=== PATIENT | female | born 1940 | race Caucasian/White ===

== ENCOUNTER 2017-03-17 10:25 | Inpatient (IN) | payer OTHER ==
[~2017-03-17] VITALS: Ht 157.5 cm; Wt 53.8 kg
[~2017-03-17 10:25] MED LIST: ALLO100T PO; ASPI81TA21 PO; CMDUNK PO; DIGO0.1267 PO; FENO48TA9 PO; FISHOIL PO; FURO20TA PO; HYDR-4715 PO; LEVO25TA PO; LRT5 PO; METO-551 PO; OXGN; SPIR25TA PO; WARF5TAB90 PO
[2017-03-17] MEDS ORDERED: ONDANSETRON INJ 2 MG/ML 2 ML VIAL IV PRN (11:30)
[2017-03-17] MEDS ORDERED: ACETAMINOPHEN 325 MG TAB PO PRN (11:30)
[2017-03-17 12:23] LABS: BASO % 0.7 %; BASO ABS # 0.03 K/uL (0-0.2); EOS % 2.5 %; HEMATOCRIT 33.9 % (37-47); LYMPH % 15.9 %; LYMPH ABS # 0.69 K/uL (1.2-3.4); MEAN CELL VOLUME 112.3 fL (80-100); MEAN CORPUSCULAR HEMOGLOBIN 37.1 pg (25-34); MEAN PLATELET VOLUME 9.9 fL (7.4-10.4); MONO % 14.3 %; NEUT % 66.6 %; PLATELET COUNT 222 K/uL (130-400); RED BLOOD COUNT 3.02 M/uL (4.2-5.4); WHITE BLOOD COUNT 4.33 K/uL (4.8-10.8)
[2017-03-17 12:29] LABS: INR 2.6 (0.9-1.1); PROTHROMBIN TIME (PATIENT) 28.9 SECONDS (9.0-12.0)
[2017-03-17] MEDS ORDERED: SPIR25TA PO (12:36)
[2017-03-17] MEDS ORDERED: RANI300T2 PO (12:36)
[2017-03-17] MEDS ORDERED: CYAN10004 PO (12:36)
[2017-03-17] MEDS ORDERED: METO-551 PO (12:36)
[2017-03-17] MEDS ORDERED: MONT1TAB5 PO (12:36)
[2017-03-17] MEDS ORDERED: HYDR-4717 PO (12:36)
[2017-03-17] MEDS ORDERED: ISOS30TA35 PO (12:36)
[2017-03-17] MEDS ORDERED: CALC0.25 PO (12:36)
[2017-03-17] MEDS ORDERED: GABA-112 PO (12:36)
[2017-03-17 12:41] VITALS: BP 155/66; PULSE 78; TEMP 36.5; O2SAT 95; Ht 157.5 cm; Wt 53.8 kg
[2017-03-17 12:47] LABS: COMPLETE YES; OVALOCYTES 1+
[2017-03-17 12:52] LABS: ALB/GLOB RATIO 0.9 (0.9-2); ALKALINE PHOSPHATASE 57 U/L (45-117); ALT/SGPT 13 U/L (12-78); AST/SGOT 24 U/L (15-37); BLOOD UREA NITROGEN 45 mg/dl (7-18); BUN/CREATININE RATIO 19.4 (10-20); CALCIUM 9.2 mg/dl (8.5-10.1); CARBON DIOXIDE 27 mmol/L (21-32); CHLORIDE 103 mmol/L (98-107); GLUCOSE 83 mg/dl (70-99); POTASSIUM 3.8 mmol/L (3.5-5.1); SODIUM 140 mmol/L (136-145)
[2017-03-17 15:02] VITALS: BP 139/68; PULSE 79; TEMP 37.2; O2SAT 93
--- NOTE | 2017-03-17 15:06 | History and Physical ---
History & Physical Date & Time of Service: Mar 17, 2017 ~ 12:15 Chief Complaint: Shortness of Breath Primary Care Physician: Lana Aguillon M.D. History of Present Illness 76 year old female who was referred by the cardiology office for direct admission after being found to have a vegetation on her mitral valve. Patient has history of mechanical aortic and mitral valve replacements in 1996. Patient notes increasing shortness of breath for the past 6 months. She was recently evaluated by cardiology who increased her diuretics however she saw minimal improvement in her shortness of breath. She was scheduled for a stress today and resting echocardiogram showed a vegetation on the mitral valve. Patient reports a persistent cough productive for white sputum. She denies fever and chills. No chest pain or palpitations. She denies lightheadedness, dizziness, diaphoresis, or syncope. No abdominal pain, nausea, vomiting, or diarrhea. She denies urinary symptoms. At the time of my exam, patient is resting in bed in no acute distress. Past Medical/Surgical History Medical Problems: (1) Atrial fibrillation Status: Chronic (2) CKD (chronic kidney disease), stage IV Status: Chronic (3) Dyslipidemia Status: Chronic (4) Gout Status: Chronic (5) HTN (hypertension) Status: Chronic (6) Hypothyroidism Status: Chronic (7) Osteoporosis Status: Chronic (8) Rheumatic heart disease Status: Chronic (9) Spinal stenosis Status: Chronic Surgical Problems: (1) H/O aortic valve replacement Permanent Comment: mechanical, 1996 Status: Chronic (2) H/O mitral valve replacement Permanent Comment: mechanical, 1996 Status: Chronic (3) History of hysterectomy Status: Chronic (4) Hx of thyroidectomy Status: Chronic (5) Status post total hip replacement, left Status: Chronic (6) Status post total hip replacement, right Status: Chronic Family History Stroke MOTHER Social History Smoking Status: Current Every Day Smoker Alcohol Use: none Immunizations History of Influenza Vaccine: Yes Influenza Vaccine Date: Jun 25, 2016 History of Pneumococcal: Yes Pneumococcal Date: Apr 04, 2015 Allergies Coded Allergies: No Known Allergies (Unverified , 03/27/12) Home Medications Scheduled Allopurinol (Zyloprim), 100 MG PO DAILY Aspirin Enteric Coated (Ecotrin Or Generic), 81 MG PO DAILY Calcitriol (Rocaltrol Cap), 1 CAP PO BID Cyanocobalamin (Vitamin B-12 1000 Mcg), 1 TAB PO DAILY Furosemide (Lasix), 40 MG PO DAILY Gabapentin (Neurontin), 100 MG PO HS Hydralazine Hcl (Apresoline), 1 TAB PO TID Isosorbide Mononitrate Ext Rel (Imdur Ext Rel), 1 TAB PO QAM Levothyroxine Sodium (Synthroid), 25 MCG PO DAILY Metoprolol Tartrate (Lopressor), 50 MG PO DAILY Metoprolol Tartrate (Lopressor), 25 MG PO HS Montelukast Sodium (Montelukast Sodium), 1 TAB PO DAILY Ranitidine (Zantac), 300 MG PO HS Spironolactone (Aldactone), 12.5 MG PO DAILY Warfarin Sod (Coumadin Unknown Dose), 3.75 MG PO DAILY Review of Systems ROS per HPI, all other systems reviewed and negative Physical Exam Vital Signs Date Time Temp Pulse Resp B/P (MAP) Pulse Ox O2 Delivery O2 Flow Rate FiO2 03/17/17 12:41 36.5 78 18 155/66 95 Room Air General Appearance: no apparent distress Head: normocephalic Eyes: normal inspection ENT: hearing grossly normal Neck: supple, no JVD Respiratory/Chest: lungs clear, normal breath sounds, no respiratory distress Cardiovascular: no edema, + irregularly irregular (controlled rate) Abdomen/GI: normal bowel sounds, non tender, soft Extremities/Musculoskelatal: normal inspection, no calf tenderness Neurologic/Psych: no motor/sensory deficits, alert, normal mood/affect, oriented x 3 Skin: normal color, warm/dry Diagnostics Laboratory Results Results Past 24 Hours Test 03/17/17 11:54 Range/Units White Blood Count 4.33 4.8-10.8 K/uL Red Blood Count 3.02 4.2-5.4 M/uL Hemoglobin 11.2 12.0-16.0 g/dL Hematocrit 33.9 37-47 % Mean Corpuscular Volume 112.3 80-100 fL Mean Corpuscular Hemoglobin 37.1 25-34 pg Mean Corpuscular Hemoglobin Concent 33.0 32-36 g/dl Platelet Count 222 130-400 K/uL Mean Platelet Volume 9.9 7.4-10.4 fL Neutrophils (%) (Auto) 66.6 % Lymphocytes (%) (Auto) 15.9 % Monocytes (%) (Auto) 14.3 % Eosinophils (%) (Auto) 2.5 % Basophils (%) (Auto) 0.7 % Neutrophils # (Auto) 2.88 1.4-6.5 K/uL Lymphocytes # (Auto) 0.69 1.2-3.4 K/uL Monocytes # (Auto) 0.62 0.11-0.59 K/uL Eosinophils # (Auto) 0.11 0-0.5 K/uL Basophils # (Auto) 0.03 0-0.2 K/uL RDW Standard Deviation 62.5 36.4-46.3 fL RDW Coefficient of Variation 15.2 11.5-14.5 % Immature Granulocyte % (Auto) 0.0 % Immature Granulocyte # (Auto) 0.00 0.00-0.02 K/uL Macrocytosis PRESENT Ovalocytes 1+ Prothrombin Time 28.9 9.0-12.0 SECONDS Prothromb Time International Ratio 2.6 0.9-1.1 Sodium Level 140 136-145 mmol/L Potassium Level 3.8 3.5-5.1 mmol/L Chloride Level 103 98-107 mmol/L Carbon Dioxide Level 27 21-32 mmol/L Anion Gap 10.0 3-11 mmol/L Blood Urea Nitrogen 45 7-18 mg/dl Creatinine 2.30 0.60-1.20 mg/dl Estimated GFR () 23.2 Estimated GFR (Non- 20.0 BUN/Creatinine Ratio 19.4 10-20 Random Glucose 83 70-99 mg/dl Calcium Level 9.2 8.5-10.1 mg/dl Total Bilirubin 0.5 0.2-1 mg/dl Aspartate Amino Transf (AST/SGOT) 24 15-37 U/L Alanine Aminotransferase (ALT/SGPT) 13 12-78 U/L Alkaline Phosphatase 57 45-117 U/L Total Protein 7.6 6.4-8.2 gm/dl Albumin 3.7 3.4-5.0 gm/dl Globulin 3.9 2.5-4.0 gm/dl Albumin/Globulin Ratio 0.9 0.9-2 Microbiology Results 03/17/17 Blood Culture, Received Pending 03/17/17 Blood Culture, Received Pending Impression Assessment and Plan MITRAL VALVE VEGETATION - admit to tele - patient sent for direct admission after outpatient echo demonstrated a mitral valve vegetation - patient with history of mechanical mitral and aortic valves replaced in 1996 - suspect vegetation is thrombus rather than infectious endocarditics as patient has recently had subtherapeutic INRs; noted no infectious symptoms, afebrile, no leukocytosis - check blood cultures - INR 2.6 today - will hold Coumadin and allow INR to drift down for MERVIN tomorrow - patient does not examine to be volume overloaded, will continue home doses of diuretics - case discussed with Dr. Rajan ATRIAL FIBRILLATION - rate controlled on metoprolol, will continue - INR 2.6 HTN - BP controlled - continue metoprolol, isosorbide, and hydralazine CKD STAGE IV - baseline creat runs in the mid 2's - creat noted to be today 2.3 - continue to monitor, avoid nephrotoxic agents when able DVT PROPHYLAXIS - on Coumadin with therapeutic INR CODE STATUS - Patient is a full code as per my discussion with her. DISPO - In my clinical judgment this beneficiary meets acute admission criteria, established by [facility], that includes being hospitalized through two midnights. Addendum: This is a 76 year old female with a PMH of mitral and aortic valve replacements ; went to cardiology due to 6 month history of dyspnea with exertion. She was scheduled to have dobutamine stress echo; on her resting echo, a vegetation was noted on her mitral valve; she was told to come to ER for further input. Denies fevers/chills; denies shortness of breath at rest, chest pain, or palpitations. Physical resting comfortably, no distress irregularly irregular rhythm, loud S2 no wheezing Plan: monitor in tele MERVIN in AM (03/18) blood cultures pending Advanced Directives Existing Living Will: Yes Existing Power of Tobacco Sieve Operator: Yes VTE Prophylaxis VTE Risk Assessment Done? Y/N: Yes Risk Level: Moderate
--- NOTE | 2017-03-17 17:12 | CARDIOLOGY CONSULTATION ---
DATE OF CONSULTATION: 03/17/2017 REASON FOR CONSULTATION: Mechanical mitral valve mass. HISTORY OF PRESENT ILLNESS: Mrs. Goodson is a very pleasant 76-year-old woman, who normally follows with Jorge Myers of our cardiology practice. She presented to [facility] for an outpatient exercise stress echocardiogram today; however, resting images revealed a mass present on the mechanical mitral valve posterior leaflet and she was sent to [facility] for inpatient admission. The patient was seen a very recently on the by Jorge Myers with a complaint of shortness of breath with exertion. At that time, a chest x-ray showed mild CHF and small pleural effusion. She had her Lasix and spironolactone increased and with some improvement and subsequent stress testing was performed. Once the resting images were obtained, she was transferred to [facility]. Currently, the patient states that she feels okay at rest. She denies any recent sick contacts or any travel and denies any fevers, chills, myalgias, night sweats or skin lesions. She has not had any significant scrapes or lesions lately either. Of note, recent blood work did show that her INR was subtherapeutic at 1.6 on 03/11/2017. PAST SURGICAL HISTORY: 1. Aortic and mitral valve replacements in 1996 with a 27-mm Rehman-Medtronic mitral valve mechanical prosthesis and a 23-mm Carbomedics aortic valve replacement. 2. Total abdominal hysterectomy. 3. Left total hip replacement. 4. Thyroidectomy. 5. Right hip replacement. MEDICAL ILLNESSES: 1. Rheumatic heart disease, status post mechanical mitral and aortic valve replacements, on chronic Coumadin therapy. 2. COPD. 3. History of tobacco abuse. 4. Hypertension. 5. Hyperlipidemia. 6. Stage IV chronic kidney disease. FAMILY HISTORY: Noncontributory. SOCIAL HISTORY: The patient is a lifelong smoker and continues to smoke a half pack a day. Denies any alcohol or recreational drug use. REVIEW OF SYSTEMS: As per HPI, all other review of systems reviewed and negative at this time. ALLERGIES: AMLODIPINE. MEDICATIONS AN OUTPATIENT: 1. Metoprolol tartrate 50 mg q.a.m. and 25 mg q.p.m. 2. Imdur 30 mg daily. 3. Aspirin 81 mg daily. 4. Coumadin 3.75 mg daily as directed by the Coumadin clinic. 5. Hydralazine 50 mg 3 times a day. 6. Spironolactone 12.5 mg daily. 7. Lasix 40 mg daily. 8. Ranitidine daily. 9. Levoxyl daily. 10. Allopurinol daily. 11. Singulair daily. PHYSICAL EXAMINATION: VITAL SIGNS: Temperature 36.5, pulse 78, respiratory rate 12, and blood pressure 155/66. GENERAL: Awake, alert, and oriented x3 in no acute distress. HEENT: Normocephalic and atraumatic. Pupils equal, round, and reactive to light and accommodation. Extraocular muscles intact. Anicteric sclerae. Moist mucous membranes. No Elizabeth spots. NECK: No JVD and no bruit. CARDIOVASCULAR: Regular. Positive S4. Metallic S1 and metallic S2. No S3. A 2/6 mid to late systolic ejection murmur greatest at the right sternal border second intercostal space with radiation to bilateral carotids. No rubs. PULMONARY: Clear to auscultation bilaterally. No rales, rhonchi, or wheezing. ABDOMEN: Bowel sounds x4, soft. No rebound, guarding, or tenderness. No organomegaly. EXTREMITIES: No clubbing, cyanosis or edema. +2 pedal pulses bilaterally. SKIN: Warm and dry. No Janeway lesions or Elizabeth spots present. TEST RESULTS: A 2D echocardiogram performed at [facility] on 03/17/2017 was read as small mobile vegetation attached to the posterior mitral valve prosthetic annulus/sewing ring. There is a mechanical mitral valve process present. Systolic gradients are normal for this type prosthesis. Mechanical aortic valve present. Gradients are borderline elevated; however, lower compared to previous study. Normal LV systolic function, EF 60%-64%, mild tricuspid regurgitation, estimated pulmonary systolic pressure of 45 mmHg. LABORATORY STUDIES OF SIGNIFICANCE: Initial blood cultures are pending. White count of 4.3, hemoglobin 11.2, and platelet count of 222. INR 2.6. Sodium 140, potassium 3.8, BUN 45, and creatinine 2.3. IMPRESSION: 1. Mitral valve mobile lesion in the setting of recent subtherapeutic INR. 2. Mechanical aortic and mitral valve prostheses with a history of rheumatic heart disease. 3. Chronic kidney disease. 4. Tobacco abuse with chronic obstructive pulmonary disease. RECOMMENDATIONS: It was my pleasure to see Mrs. Goodson in consultation today. Given the clinical context that the patient has not had any sequelae for infective endocarditis specifically without any fevers, white count, and no sick contacts, I believe this most likely that we were dealing with a thrombus, especially given the recent history of a subtherapeutic INR; however, for completeness sake, blood cultures have been drawn and will be followed, but without any infected sequelae, I do not believe that empiric antibiotics are necessary at this time. In order to further visually evaluate the lesion, a transesophageal echocardiogram will be necessary. Unfortunately, her INR is now 2.6 and I would not feel comfortable doing a MERVIN with an INR greater than 2. So, given her history of mechanical valve prosthesis, we will allow her INR to slowly drift down on its own. Once it is less than 2.5, a heparin drip should be started to prevent further prosthetic thrombosis and her Coumadin will be restarted after the transesophageal echocardiogram. Otherwise, she will be maintained on all her other outpatient cardiac medications including her outpatient doses of Lasix, spironolactone, metoprolol, Imdur, aspirin, and hydralazine. Thank you very much for allowing me to participate in the care of your patient.
[2017-03-17 19:29] VITALS: BP 162/75; PULSE 77; TEMP 36.9; O2SAT 93
[2017-03-17] MEDS: METOPROLOL TARTRATE 25 MG TAB PO SCH (19:36)
[2017-03-17] MEDS: GABAPENTIN 100 MG CAP PO SCH (19:37)
[2017-03-17] MEDS: RANITIDINE HCL 150 MG TAB PO SCH (19:37)
[2017-03-17] MEDS: CALCITRIOL 0.25 MCG CAP PO SCH (19:37)
[2017-03-18] VITALS (14 sets, daily range): BP systolic 128–163; BP diastolic 53–111; PULSE 62–84; TEMP 36.7–36.9; O2SAT 87–97
[2017-03-18] MEDS: LEVOTHYROXINE 25 MCG TAB PO SCH (06:24)
--- NOTE | 2017-03-18 07:17 | Clinical Documentation Query ---
CLINICAL DOCUMENTATION QUERY 76 year old female who was referred by the cardiology office for direct admission after being found to have a likely thrombus on the mitral valve. Patient is on Lasix as outpatient and remains on same dosing as inpatient. In your clinical opinion is this patient being managed for: ( ) Chronic diastolic (Preserved EF) CHF ( ) Other explanation of clinical findings (Please Explain) ( ) Unable to determine (Please Define) ( ) Need to Discuss ( ) Not Agree Not mine. The medical record reflects the following clinical findings, treatment, and risk factors. Clinical Indicators: On home diuretic therapy. Normal LV systolic function, EF 60%-64%, mild tricuspid regurgitation, estimated pulmonary systolic pressure of 45 mmHg. Treatment: Lasix, I/O's, daily weights, Risk Factors: Age, HTN, CKD 4, Please clarify and document your clinical opinion in the progress notes and discharge summary. Terms such as "probable", "suspected", "likely", "questionable", "possible", or "still to be ruled out" are acceptable. IF IN AGREEMENT, YOU MUST DOCUMENT ABOVE DIAGNOSTIC STATEMENT IN DAILY PROGRESS NOTES AND DISCHARGE SUMMARY. This document is not part of the patient's record. Thank You, Sukumar Huitron, RN [phone]
[2017-03-18 07:26] LABS: HEMATOCRIT 33.5 % (37-47); MEAN CELL VOLUME 113.2 fL (80-100); MEAN CORPUSCULAR HEMOGLOBIN 36.8 pg (25-34); MEAN CORPUSCULAR HGB CONC 32.5 g/dl (32-36); MEAN PLATELET VOLUME 9.9 fL (7.4-10.4); PLATELET COUNT 184 K/uL (130-400); RED BLOOD COUNT 2.96 M/uL (4.2-5.4); WHITE BLOOD COUNT 4.51 K/uL (4.8-10.8)
[2017-03-18 07:34] LABS: PROTHROMBIN TIME (PATIENT) 21.5 SECONDS (9.0-12.0)
[2017-03-18] MEDS: ASPIRIN 81 MG ECTAB PO SCH (08:00)
[2017-03-18] MEDS: MONTELUKAST SOD 10 MG TAB PO SCH (08:00)
[2017-03-18] MEDS: ISOSORBIDE MONONITRATE 30 MG TABCR PO SCH (08:00)
[2017-03-18] MEDS: FUROSEMIDE 40 MG TAB PO SCH (08:01)
[2017-03-18] MEDS: CYANOCOBALAMIN 500 MCG TAB (VIT B-12) PO SCH (08:01)
[2017-03-18] MEDS: ALLOPURINOL 100 MG TAB PO SCH (08:01)
[2017-03-18] MEDS: SPIRONOLACTONE 25 MG TAB PO SCH (08:02)
[2017-03-18] MEDS: CALCITRIOL 0.25 MCG CAP PO SCH ×2 (08:02→21:00)
[2017-03-18] MEDS: METOPROLOL TARTRATE 50 MG TAB PO SCH (08:03)
[2017-03-18] MEDS: HEPARIN 25,000 UNIT/500ML D5W 500 ML IV PRN (08:39)
[2017-03-18] MEDS ORDERED: MIDAZOLAM HCL 1 MG/ML 2ML VIAL ONE ×2 (10:14)
[2017-03-18] MEDS ORDERED: FENTANYL CITRATE INJ 50 MCG/1 ML 2 ML VIAL ONE (10:14)
[2017-03-18] MEDS ORDERED: GLYCOPYRROLATE INJ 0.2 MG/ML VIAL ONE (10:14)
[2017-03-18] MEDS ORDERED: BENZOCAIN/TETRACA/BUTAM SPRAY 200 APPLN/20 GM SPRY ONE (10:14)
[2017-03-18] MEDS ORDERED: CANNULA ONE ×2 (10:14)
--- NOTE | 2017-03-18 10:43 | Procedure Note ---
Pre-Mod Sedation Assessment General Date of Moderate Sedation: Mar 18, 2017. Vital Signs: Vital Signs Past 12 Hours Date Time Temp Pulse Resp B/P (MAP) Pulse Ox O2 Delivery O2 Flow Rate FiO2 03/18/17 10:26 65 16 156/62 97 Room Air 03/18/17 07:49 36.8 72 20 149/75 (99) 92 Room Air 03/18/17 04:24 36.7 76 18 132/73 (92) 93 Room Air 03/18/17 04:00 Room Air 03/18/17 00:01 36.7 68 20 159/78 (105) 93 Room Air 03/18/17 00:01 Room Air Review Cardiovascular: regular rate, rhythm, no edema, no gallop, no JVD, normal peripheral pulses, + diastolic murmur, + systolic murmur Abdomen: normal bowel sounds, non tender, soft, no organomegaly, no pulsatile mass Lungs: chest non-tender, lungs clear, normal breath sounds, no respiratory distress, no accessory muscle use Airway Class: II Pre-Sedation Airway Assessment Oral Cavity: WNL Short Thick Neck: No Hx of Sleep Apnea: No Smoking Status: Light Tobacco Smoker Notes The planned sedation has been discussed with the patient and consent obtained. I have identified the patient, determined the appropriateness of sedation and have assessed the patient immediately prior to the procedure. All medicine(s) and interventions are by my order.
--- NOTE | 2017-03-18 11:12 | Procedure Note ---
Post-Mod Sedation Assessment General Date of Moderate Sedation Mar 18, 2017. Vital Signs: Vital Signs Past 12 Hours Date Time Temp Pulse Resp B/P (MAP) Pulse Ox O2 Delivery O2 Flow Rate FiO2 03/18/17 10:26 65 16 156/62 97 Room Air 03/18/17 07:49 36.8 72 20 149/75 (99) 92 Room Air 03/18/17 04:24 36.7 76 18 132/73 (92) 93 Room Air 03/18/17 04:00 Room Air 03/18/17 00:01 36.7 68 20 159/78 (105) 93 Room Air 03/18/17 00:01 Room Air Review - Discharge Criteria Vital Signs Stable: Yes Alert/Oriented/Conversant: Yes Returned to Baseline Mental St: Yes Nausea Absent/Minimal: Yes Pain/Discomfort/Absent/Minimal: Yes Normal/Baseline Respirations: Yes Active Bleeding?: No Pt Received D/C Instructions: No
--- NOTE | 2017-03-18 11:15 | [facility] Post Operative Brief Note ---
Immediate Operative Summary Operative Date Mar 18, 2017. Pre-Operative Diagnosis mechanical mitral valve lesion Post-Operative Diagnosis retained chordae tendinae s/p mechanical MVR Procedure(s) Performed MERVIN Surgeon Rajan High Lift Operator Surgeon(s) Michelle WILSON Estimated Blood Loss none Findings retained chordae tendinae, no valular lesions visualized. Specimens none Start time: 1049 Stop time: 1107 Anesthesia Versed 2 mg, Fentanyl 50mcg, moderate sedation Complication(s) None Disposition CPL
--- NOTE | 2017-03-18 11:34 | Cardiology Follow-Up ---
Subjective Subjective Date of Service: Mar 18, 2017. Pt evaluation today including: conversation w/ patient, physical exam, chart review, lab review, review of studies, review of inpatient medication list Additional Details: Pt seen and examined, states that she feels fine and she is anxious to go home. Denies fever, chills, myalgias, diaphoresis, cp, sob, palpitations, lightheadedness or dizziness. Tele reviewed: atrial fibrillation rate controlled. Review of Systems Respiratory: No see HPI, No cough, No sputum, No wheezing, No shortness of breath, No dyspnea on exertion, No dyspnea at rest, No hemoptysis, No problem reported Cardiac: No see HPI, No chest pain, No orthopnea, No PND, No edema, No claudication, No palpitations, No problem reported Objective Vital Signs Last Vital Signs Documentation Date Time Temp Pulse Resp B/P (MAP) Pulse Ox O2 Delivery O2 Flow Rate FiO2 03/18/17 10:26 65 16 156/62 97 Room Air 03/18/17 07:49 36.8 Physical Exam: General Appearance: WD/WN, no apparent distress Eyes: bilateral eyes normal inspection, bilateral eyes PERRL, bilateral eyes EOMI ENT: normal ENT inspection, hearing grossly normal, pharynx normal Neck: supple, no adenopathy, thyroid normal, no JVD, no carotid bruits, trachea midline Respiratory/Chest: chest non-tender, lungs clear, normal breath sounds, no respiratory distress, no accessory muscle use Cardiovascular: + systolic murmur, + irregularly irregular Abdomen: normal bowel sounds, non tender, soft, no organomegaly Extremities: normal inspection, no pedal edema, no calf tenderness Neurologic/Psychiatric: typing bookkeeper II-XII 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 possible MVR mass INR down to 2 overnight patient anxious to have procedure done as soon as possible and d/c to home MERVIN performed; no valular lesions identified, retained chordae tendinae present only blood cultures negative on second day, will cont to follow no sequelae of infection will restart heparin gtt upon arrival to floor coumadin to be restarted d/c to home once INR >2.5
--- NOTE | 2017-03-18 12:06 | TEE ---
*NOTICE TO RECEIVING DEMOCRAT AGENCY This information is strictly Confidential and protected under [place] law. [place] law prohibits you from making any further disclosure of this information unless further disclosure is expressly permitted by the written consent of the person to whom it pertains or is authorized by law. A general authorization for the release of medical or other information is not sufficient for this purpose. Hospital accepts no responsibility if the information is made available to any other person, INCLUDING THE PATIENT. Interpretation Summary * Name: ZANDER JACOB Study Date: 03/18/2017 10:31 AM BP: 139/47 mmHg * Patient Location: .2T\S\S239\S\1 HR: 68 * : 1940 (M/d/yyy) Gender: Female Height: 62 in * Age: 76 yrs Ethnicity: CA Weight: 118 lb * Ordering Physician: Marcelo Rajan * Referring Physician: Nick Quiñones * Performed By: Arely Khan RDCS * * Reason For Study: ? VEGETATION ON MITRAL VALVE * BSA: 1.5 m2 * Start Time 10:49AM * End Time 11:07AM * -- Conclusions -- * There is a central disc (Medtronic-Rehman type) mechanical prosthesis. * There is no thrombus on the prosthetic mitral valve. * Trace intravalvular regurgitation. Retained chordae tendinae present. * Left atrial thrombus is present. Procedure Details * MERVIN Probe #1 utilized for procedure. * The study was performed in Cardiopulmonary Department. * Time out was conducted by the physician, nurse, and cadd technician with positive identification of patient and procedure. * Informed consent for Transesophageal Echocardiogram was obtained prior to the procedure. * An intravenous line was placed. A topical anesthetic agent was used for oropharangeal anesthesia. A bite block was inserted. * The patient's vital signs, including blood pressure, heart rate, pulse oximetry and cardiac rhythm were monitored throughout the procedure . * Fentanyl 50 mcg was administered for procedural sedation. * Midazolam 2 mg administered for sedation. * The posterior oropharynx was anesthetized using a topical anesthetic spray. A bite guard was inserted. * A multifrequency, multiplane transesopheageal echocardiographic endoscope was inserted and manipulated in the standard fashion to achieve multiplane views. * The transesophageal probe was passed without difficulty. * The usual views were obtained; basal, mid-esophageal, transgastric and aortic views. * The patient tolerated the procedure well without evidence of orophangeal or esophageal trauma. * A 2D transesophageal echocardiogram with spectral and color flow Doppler was performed. Left Ventricle * The left ventricle is grossly normal size. * The left ventricular wall motion is normal. Atria * The left atrium is moderately dilated. * There is a thrombus seen in the left atrial appendage. * Right atrial size is normal. * The interatrial septum is intact with no evidence for an atrial septal defect. Mitral Valve * There is a central disc (Medtronic-Rehman type) mechanical prosthesis. * There is no thrombus on the prosthetic mitral valve. * Trace intravalvular regurgitation. Retained chordae tendinae present. Tricuspid Valve * The tricuspid valve is normal in structure and function. Aortic Valve * There is no significant aortic regurgitation. * There is a mechanical aortic valve. Pulmonic Valve * The pulmonary valve is not well seen, but the Doppler examination is normal without significant regurgitation or stenosis. Great Vessels * The aortic root and proximal ascending aorta are normal sized. * Mild atherosclerotic plaque(s) in the descending aorta. Pericardium * There is no pericardial effusion.
[2017-03-18 13:01] LABS: BUN/CREATININE RATIO 18.3 (10-20); CALCIUM 8.7 mg/dl (8.5-10.1); CREATININE 2.3 mg/dl (0.60-1.20); POTASSIUM 3.6 mmol/L (3.5-5.1)
[2017-03-18] MEDS ORDERED: NURSING VERBAL MED ORDER ONE (16:00)
[2017-03-18] MEDS: WARFARIN SOD 5 MG TAB PO SCH (17:41)
--- NOTE | 2017-03-18 18:17 | Progress Note ---
Internal Med Progress Note Date of Service: Mar 18, 2017. Provider Documentation: SUBJECTIVE: feels much better , no complain of ERIC , SOB at rest having sore throat form MERVIN exam earlier has been ambulating in room /OOB to bathroom -with out any SOB OBJECTIVE: Vital Signs-as noted below Exam: General-very pleasant elderly female, no sign of distress Eyes-sclera non icteric ENT-NAd Neck-no JVD Lungs-rales at base Heart-mechanical valve sound in 2nd rt ICS Abdomen-soft, non tender Extremities-no lower ext edema Neuro-AAO x3, no focal neurological deficit Lab data as noted below. ASSESSMENT & PLAN: LEFT ATRIAL APPENDAGE THROMBUS -was scheduled to have Dobutamine stress test at [facility] on Friday03/17/17 - patient sent for direct admission after resting echo demonstrated a mitral valve vegetation - patient with history of mechanical mitral and aortic valves replaced in 1996 -S/p MERVIN today -no vegetation noted on Medtronic-Rehman type mechanical prosthesis -left atrial appendage thrombus presented ( INR was recently subtherapeutic as out pt ) -pt will be continued with Coumadin and IV Heparin till INR ~2.5 SOB /ERIC /CHRONIC NON PRODUCTIVE COUGH : scheduled for Dobutamine stress test tomorrow 03/19/17 ATRIAL FIBRILLATION - rate controlled on metoprolol, will continue - cont IV heparin /Coumadin till INR ~2.5 -MERVIN shows left atrial appendage possible due to subtherapeutic INR in past -cont to monitor in tele HTN - BP controlled - continue metoprolol, isosorbide, and hydralazine CKD STAGE IV -stable - baseline creat runs in the mid 2's - continue to monitor, avoid nephrotoxic agents when able DVT PROPHYLAXIS - on Coumadin /IV heparin CODE STATUS - Patient is a full code DVT PROPHYLAXIS IV heparin /Coumadin DISPOSITION Possible dc home in AM if cardiac stress test negative Medicine follow up with Dr Aguillon Cardiology follow up with Jorge Myers PA-C Vital Signs: Date Time Temp Pulse Resp B/P (MAP) Pulse Ox O2 Delivery O2 Flow Rate FiO2 03/18/17 16:46 36.9 77 20 159/76 (103) 94 Room Air 03/18/17 12:07 36.7 73 22 159/79 (105) 95 Room Air 73 03/18/17 11:47 70 16 135/57 (83) 94 Room Air 03/18/17 11:36 75 20 131/56 (81) 95 Room Air 03/18/17 11:27 71 25 111/39 (63) 94 Nasal Cannula 6 03/18/17 11:17 72 21 133/54 (80) 95 Nasal Cannula 6 03/18/17 11:08 65 22 113/66 (82) 96 Nasal Cannula 6 03/18/17 11:07 Nasal Cannula 6 03/18/17 11:05 67 14 146/53 95 Nasal Cannula 6 03/18/17 11:00 75 14 132/62 87 Nasal Cannula 6 03/18/17 10:55 73 12 141/53 92 Nasal Cannula 4 03/18/17 10:53 Nasal Cannula 4 03/18/17 10:52 74 16 139/74 92 Nasal Cannula 4 03/18/17 10:49 84 19 163/111 96 Nasal Cannula 4 03/18/17 10:26 65 16 156/62 97 Room Air 03/18/17 07:49 36.8 72 20 149/75 (99) 92 Room Air 03/18/17 04:24 36.7 76 18 132/73 (92) 93 Room Air 03/18/17 04:00 Room Air 03/18/17 00:01 36.7 68 20 159/78 (105) 93 Room Air 03/18/17 00:01 Room Air 03/17/17 20:00 Room Air 03/17/17 19:29 36.9 77 20 162/75 (104) 93 Room Air Lab Results: Results Past 24 Hours Test 03/18/17 07:00 Range/Units White Blood Count 4.51 4.8-10.8 K/uL Red Blood Count 2.96 4.2-5.4 M/uL Hemoglobin 10.9 12.0-16.0 g/dL Hematocrit 33.5 37-47 % Mean Corpuscular Volume 113.2 80-100 fL Mean Corpuscular Hemoglobin 36.8 25-34 pg Mean Corpuscular Hemoglobin Concent 32.5 32-36 g/dl RDW Standard Deviation 62.6 36.4-46.3 fL RDW Coefficient of Variation 15.0 11.5-14.5 % Platelet Count 184 130-400 K/uL Mean Platelet Volume 9.9 7.4-10.4 fL Prothrombin Time 21.5 9.0-12.0 SECONDS Prothromb Time International Ratio 2.0 0.9-1.1 Sodium Level 141 136-145 mmol/L Potassium Level 3.6 3.5-5.1 mmol/L Chloride Level 106 98-107 mmol/L Carbon Dioxide Level 26 21-32 mmol/L Anion Gap 9.0 3-11 mmol/L Blood Urea Nitrogen 42 7-18 mg/dl Creatinine 2.30 0.60-1.20 mg/dl Est Creatinine Clear Calc Drug Dose 16.5 ml/min Estimated GFR () 23.2 Estimated GFR (Non- 20.0 BUN/Creatinine Ratio 18.3 10-20 Random Glucose 80 70-99 mg/dl Calcium Level 8.7 8.5-10.1 mg/dl
[2017-03-18] MEDS: METOPROLOL TARTRATE 25 MG TAB PO SCH (20:59)
[2017-03-18] MEDS: RANITIDINE HCL 150 MG TAB PO SCH (21:00)
[2017-03-18] MEDS: GABAPENTIN 100 MG CAP PO SCH (21:01)
[2017-03-18 21:50] LABS: PARTIAL THROMBOPLASTIN RATIO 2.1
[2017-03-19] VITALS (7 sets, daily range): BP systolic 103–148; BP diastolic 56–73; PULSE 64–81; TEMP 36.7–37; O2SAT 91–96
--- NOTE | 2017-03-19 05:26 | Clinical Documentation Query ---
CLINICAL DOCUMENTATION QUERY 76 year old female who was referred by the cardiology office for direct admission after being found to have likely thrombus on mitral valve. Patient is on Lasix as outpatient and remain on same dosing as inpatient. In your clinical opinion is this patient being managed for: ( x ) Chronic diastolic (Preserved EF) CHF ( ) Other explanation of clinical findings (Please Explain) ( ) Unable to determine (Please Define) ( ) Need to Discuss ( ) Not Agree The medical record reflects the following clinical findings, treatment, and risk factors. Clinical Indicators: On home diuretic therapy. Normal LV systolic function, EF 60%-64%, mild tricuspid regurgitation, estimated pulmonary systolic pressure of 45 mmHg. Treatment: Lasix, I/O's, daily weights, Risk Factors: Age, HTN, CKD 4, Please clarify and document your clinical opinion in the progress notes and discharge summary. Terms such as "probable", "suspected", "likely", "questionable", "possible", or "still to be ruled out" are acceptable. IF IN AGREEMENT, YOU MUST DOCUMENT ABOVE DIAGNOSTIC STATEMENT IN DAILY PROGRESS NOTES AND DISCHARGE SUMMARY. This document is not part of the patient's record. Thank You, Sukumar uHitron, RN [phone]
[2017-03-19] MEDS: LEVOTHYROXINE 25 MCG TAB PO SCH (06:07)
[2017-03-19 07:54] LABS: INR 1.6 (0.9-1.1); PROTHROMBIN TIME (PATIENT) 16.9 SECONDS (9.0-12.0)
[2017-03-19 07:56] LABS: PARTIAL THROMBOPLASTIN RATIO 2.5
[2017-03-19] MEDS: ASPIRIN 81 MG ECTAB PO SCH (08:42)
[2017-03-19] MEDS: ALLOPURINOL 100 MG TAB PO SCH (08:42)
[2017-03-19] MEDS: CYANOCOBALAMIN 500 MCG TAB (VIT B-12) PO SCH (08:42)
[2017-03-19] MEDS: CALCITRIOL 0.25 MCG CAP PO SCH (08:43)
[2017-03-19] MEDS: MONTELUKAST SOD 10 MG TAB PO SCH (08:43)
[2017-03-19] MEDS ORDERED: DOBUTamine HCL 12.5 MG/ML 20 ML VIAL ONE (08:46)
[2017-03-19] MEDS ORDERED: ATROPINE SULFATE 0.1 MG/ML 5ML SYR ONE (08:46)
[2017-03-19] MEDS ORDERED: METOPROLOL TARTRATE 1 MG/ML VIAL ONE (08:46)
[2017-03-19] MEDS ORDERED: WARFARIN SOD 5 MG TAB PO ONE (08:51)
[2017-03-19] MEDS: SPIRONOLACTONE 25 MG TAB PO SCH (10:57)
[2017-03-19] MEDS: METOPROLOL TARTRATE 50 MG TAB PO SCH (10:57)
[2017-03-19] MEDS: ISOSORBIDE MONONITRATE 30 MG TABCR PO SCH (10:57)
[2017-03-19] MEDS: FUROSEMIDE 40 MG TAB PO SCH (10:58)
--- NOTE | 2017-03-19 14:40 | DOBUTAMINE ECHO ---
*NOTICE TO RECEIVING DEMOCRAT AGENCY This information is strictly Confidential and protected under [place] law. [place] law prohibits you from making any further disclosure of this information unless further disclosure is expressly permitted by the written consent of the person to whom it pertains or is authorized by law. A general authorization for the release of medical or other information is not sufficient for this purpose. Hospital accepts no responsibility if the information is made available to any other person, INCLUDING THE PATIENT. Interpretation Summary * Name: ZANDER JACOB Study Date: 03/19/2017 08:36 AM BP: 145/66 mmHg * Patient Location: [id number]\S\S239\S\1 HR: 82 * : 1940 (M/d/y) Gender: Female Height: 62 in * Age: 76 yrs Ethnicity: [place] Weight: 118 lb * Ordering Physician: Marcelo Rajan * Referring Physician: Nick Quiñones * Performed By: Conchis Berg RDCS * * Reason For Study: Dyspnea * BSA: 1.5 m2 * -- Conclusions -- * Nonischemic dobutamine stress echocardiogram. * No arrhythmias. * Normal HR and BP response to infusion. Procedure Details * DOBUTAMINE ECHO, CPT#02461 * ECHO DOPPLER, CPT #93013 * ECHO COLOR FLOW, CPT #03964 Left Ventricle * Resting wall motion: Normal. Stress wall motion: Appropriate increase in Left ventricular systolic function and decrease in cavity size. No stress induced segmental wall motion abnormalities. Stress Parameters * The stress portion of this study was personally supervised by the undersigned interpreting physician. * Rest heart rate was '82' BPM. * Rest blood pressure was '145/66' * Maximum heart rate achieved was 187 bpm. * Maximum heart rate was 129 % of maximum age-predicted heart rate. * Maximum blood pressure was '166/57' * Maximum Dobutamine infusion rate was '40' mcg/kg/min. * Dobutamine infusion was terminated due to achieving target heart rate * A total of 10 mg of IV Metoprolol was administered to reverse Dobutamine-induced tachycardia. * The patient did not exhibit any symptoms during drug infusion.
[2017-03-19] MEDS: WARFARIN SOD 5 MG TAB PO SCH (15:54)
--- NOTE | 2017-03-19 15:54 | Cardiology Follow-Up ---
Subjective Subjective Date of Service: Mar 19, 2017. Pt evaluation today including: conversation w/ patient, conversation w/ family , physical exam, chart review, lab review, review of studies, review of inpatient medication list Additional Details: Pt seen and examined, no complaints overnight. States that breathing is not back to baseline but otherwise feeling well. Denies cp, palpitations, lightheadedness or dizziness. Tele reviewed: atrial fibrillation, rate controlled. Review of Systems Respiratory: No see HPI, No cough, No sputum, No wheezing, No shortness of breath, No dyspnea on exertion, No dyspnea at rest, No hemoptysis, No problem reported Cardiac: No see HPI, No chest pain, No orthopnea, No PND, No edema, No claudication, No palpitations, No problem reported Objective Vital Signs Last Vital Signs Documentation Date Time Temp Pulse Resp B/P (MAP) Pulse Ox O2 Delivery O2 Flow Rate FiO2 03/19/17 15:34 36.8 75 20 103/64 (77) 94 Room Air 03/18/17 11:27 6 Physical Exam: General Appearance: WD/WN, no apparent distress Eyes: bilateral eyes normal inspection, bilateral eyes PERRL, bilateral eyes EOMI ENT: normal ENT inspection, hearing grossly normal, pharynx normal Neck: supple, no adenopathy, thyroid normal, no JVD, no carotid bruits, trachea midline Respiratory/Chest: chest non-tender, lungs clear, normal breath sounds, no respiratory distress, no accessory muscle use Cardiovascular: + systolic murmur, + irregularly irregular Abdomen: normal bowel sounds, non tender, soft, no organomegaly Extremities: normal inspection, no pedal edema, no calf tenderness Neurologic/Psychiatric: 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 mechanical mvr and avr unfortunately INR now down to 1.6 today extra dose of coumadin heparin until INR of 2.5 reached 3. sob valvular prosthesis stable nonischemic stress test possible diastolic component but more like copd with ongoing cigarette use counseled on cessation may consider pulm eval ok to d/c tele from cardiac standpoint but must remain on heparin bridge
[2017-03-19] MEDS ORDERED: WARFARIN SOD 1 MG TAB PO ONE (16:30)
[2017-03-19] MEDS: HEPARIN 25,000 UNIT/500ML D5W 500 ML IV PRN (18:59)
--- NOTE | 2017-03-19 20:18 | Progress Note ---
Internal Med Progress Note Date of Service: Mar 19, 2017. Provider Documentation: SUBJECTIVE: no complain of chest pain or SOB Dobutamine stress test non ischemic very eager to go home will need continued hospital stay with IV heparin bridge due to sub therapeutic INR 1.6 OBJECTIVE: Vital Signs-as noted below Exam: General-very pleasant elderly female, no sign of distress Eyes-sclera non icteric ENT-NAd Neck-no JVD Lungs-rales at base Heart-mechanical valve sound in 2nd rt ICS Abdomen-soft, non tender Extremities-no lower ext edema Neuro-AAO x3, no focal neurological deficit Lab data as noted below. ASSESSMENT & PLAN: LEFT ATRIAL APPENDAGE THROMBUS -was scheduled to have Dobutamine stress test at [facility] on Friday03/17/17 - patient sent for direct admission after resting echo demonstrated a mitral valve vegetation - patient with history of mechanical mitral and aortic valves replaced in 1996 -S/p MERVIN 03/08/17 -no vegetation noted on Medtronic-Rehman type mechanical prosthesis -left atrial appendage thrombus presented ( INR was recently subtherapeutic as out pt ) -pt will be continued with Coumadin and IV Heparin till INR ~2.5 SOB /ERIC /CHRONIC NON PRODUCTIVE COUGH : due to Decompensated CHF with diastolic dysfunction symptom improved after diuresis non ischemic Dobutamine stress test today stable to D/c tele ATRIAL FIBRILLATION - rate controlled on metoprolol, INR 1.6 today - cont IV heparin /Coumadin till INR ~2.5 -MERVIN shows left atrial appendage possible due to subtherapeutic INR in past Coumadin dose increased repeat PT/INR tomorrow pt will need hospital stay with IV heparin HTN - BP controlled - continue metoprolol, isosorbide, and hydralazine CKD STAGE IV -stable - baseline creat runs in the mid 2's - continue to monitor, avoid nephrotoxic agents when able DVT PROPHYLAXIS - on Coumadin /IV heparin CODE STATUS - Patient is a full code DVT PROPHYLAXIS IV heparin /Coumadin DISPOSITION Possible dc home as INR ~2.5 Medicine follow up with Dr Aguillon Cardiology follow up with Jorge Myers PA-C Vital Signs: Date Time Temp Pulse Resp B/P (MAP) Pulse Ox O2 Delivery O2 Flow Rate FiO2 03/19/17 19:22 36.8 67 20 120/56 (77) 94 Room Air 03/19/17 16:00 Room Air 03/19/17 15:34 36.8 75 20 103/64 (77) 94 Room Air 03/19/17 12:00 Room Air 03/19/17 11:10 36.7 74 20 133/73 (93) 95 Room Air 03/19/17 08:00 Room Air 03/19/17 07:20 36.7 75 16 117/68 (84) 91 Room Air 03/19/17 04:00 Room Air 03/19/17 03:54 37.0 64 18 148/72 (97) 96 Room Air 03/19/17 02:50 36.7 78 19 132/69 (90) 95 Room Air 03/18/17 23:59 Room Air 03/18/17 23:04 36.9 74 17 139/73 (95) 95 Room Air Lab Results: Results Past 24 Hours Test 03/18/17 21:17 03/19/17 06:51 Range/Units Activated Partial Thromboplast Time 53.7 64.3 21.0-31.0 SECONDS Partial Thromboplastin Ratio 2.1 2.5 Prothrombin Time 16.9 9.0-12.0 SECONDS Prothromb Time International Ratio 1.6 0.9-1.1
[2017-03-19] MEDS: METOPROLOL TARTRATE 25 MG TAB PO SCH (20:55)
[2017-03-19] MEDS: GABAPENTIN 100 MG CAP PO SCH (20:56)
[2017-03-19] MEDS: RANITIDINE HCL 150 MG TAB PO SCH (20:56)
[2017-03-20] VITALS (7 sets, daily range): BP systolic 107–127; BP diastolic 59–77; PULSE 66–81; TEMP 36.6–36.7; O2SAT 90–96
[2017-03-20] MEDS: LEVOTHYROXINE 25 MCG TAB PO SCH (05:48)
[2017-03-20 07:29] LABS: HEMATOCRIT 33.6 % (37-47); MEAN CELL VOLUME 112.4 fL (80-100); MEAN CORPUSCULAR HEMOGLOBIN 37.8 pg (25-34); MEAN CORPUSCULAR HGB CONC 33.6 g/dl (32-36); MEAN PLATELET VOLUME 10.2 fL (7.4-10.4); PLATELET COUNT 185 K/uL (130-400); RED BLOOD COUNT 2.99 M/uL (4.2-5.4); WHITE BLOOD COUNT 5.19 K/uL (4.8-10.8)
[2017-03-20 07:47] LABS: INR 1.8 (0.9-1.1); PARTIAL THROMBOPLASTIN RATIO 2.8; PROTHROMBIN TIME (PATIENT) 19.2 SECONDS (9.0-12.0)
[2017-03-20] MEDS: METOPROLOL TARTRATE 50 MG TAB PO SCH (08:42)
[2017-03-20] MEDS: FUROSEMIDE 40 MG TAB PO SCH (08:42)
[2017-03-20] MEDS: MONTELUKAST SOD 10 MG TAB PO SCH (08:43)
[2017-03-20] MEDS: SPIRONOLACTONE 25 MG TAB PO SCH (08:43)
[2017-03-20] MEDS: ISOSORBIDE MONONITRATE 30 MG TABCR PO SCH (08:44)
[2017-03-20] MEDS: CALCITRIOL 0.25 MCG CAP PO SCH ×2 (08:44→19:48)
[2017-03-20] MEDS: ASPIRIN 81 MG ECTAB PO SCH (08:45)
[2017-03-20] MEDS: ALLOPURINOL 100 MG TAB PO SCH (08:45)
[2017-03-20] MEDS: CYANOCOBALAMIN 500 MCG TAB (VIT B-12) PO SCH (08:45)
[2017-03-20] MEDS: HEPARIN 25,000 UNIT/500ML D5W 500 ML IV PRN ×2 (09:15→23:41)
[2017-03-20 15:38] LABS: PARTIAL THROMBOPLASTIN RATIO 2.4
[2017-03-20] MEDS ORDERED: GUAIFENESIN/CODEINE 100MG/10MG 5ML UDC PO PRN (15:45)
[2017-03-20] MEDS ORDERED: WARFARIN SOD 7.5 MG TAB PO SCH ×2 (16:00)
--- NOTE | 2017-03-20 16:16 | Discharge Instructions ---
Discharge Instructions Date of Service Mar 20, 2017. Admission Reason for Admission: Vegetation On Mitral Valve Discharge Discharge Diagnosis / Problem: SOB /CHF /LEFT ATRIAL APPENDAGE CLOT /AFIB Discharge Goals Goal(s): Decrease discomfort, Diagnostic testing, Therapeutic intervention Activity Recommendations Activity Limitations: resume your previous activity Shower/Bathe: no limitations . Instructions / Follow-Up Instructions / Follow-Up HOSPITAL FOLLOW UP ON 03/28/2017 @ 10:[address] Carol Galicia, Internal Medicine [facility] CARDIOLOGY FOLLOW UP : 03/26/2017 @ 10:15 AM WITH Jorge Myers PA-C Cardiology, [facility] PT/INR CHECK ON Friday03/23/17 Call your Primary Care doctor if any of the following symptoms or problems start or get worse: * Shortness of breath or difficulty breathing * Wake up at night short of breath * Chest pain * Cough * Swelling of your hands, feet, or legs * More fatigued or tired with your normal activity * Palpitations - sudden fast heart beats WEIGHT * Weigh yourself every morning after using the bathroom. * Use the same scale. * Wear the same amount of clothing. * Write your weight down on a chart. * Call your Primary Care doctor if you gain more than 2-3 pounds in 1-2 days. MEDICATIONS * Use this discharge instruction sheet for medication instructions. * Take your medications at the time your doctor ordered. * Do not skip a dose of your medicines. * If you miss a dose of medicine, take it as soon as possible, but DO NOT DOUBLE A DOSE. * Read your medicine information when you get home. * Know all of the side effects of your medicine. If in doubt, ask your pharmacist * Call your Primary Care doctor's office if you have any side effects. * Be sure all of your doctors know what medicine and herbs you take (including cold, flu, and herbal medicine). Take the following with you to your follow-up doctor appointments: * Weight Chart * Medication List * List of questions Do not drink excessive alcohol, beer or wine. Current Hospital Diet Patient's current hospital diet: AHA Diet (Heart Healthy), Low Sodium Diet (2gm Na) Discharge Diet Recommended Diet: AHA Diet (Heart Healthy), Low Sodium Diet (2gm Na) Procedures Procedures Performed: MERVIN Pending Studies Studies pending at discharge: no Medical Emergencies . Who to Call and When: Call 911 or go to the Emergency Room if: * If at any time you feel your situation is an emergency * You have tightness or pain in your chest that does not go away with rest or Nitroglycerin * You are very short of breath even with rest . Non-Emergent Contact Non-Emergency issues call your: Primary Care Provider . . "Provider Documentation" section prepared by Margarita Hernandez. . VTE Core Measure Inpt VTE Proph given/why not?: Warfarin (Coumadin)
--- NOTE | 2017-03-20 16:35 | Progress Note ---
Internal Med Progress Note Date of Service: Mar 20, 2017. Provider Documentation: SUBJECTIVE: offers no complain has chronic non productive cough no chest pain or SOB no fever or chills frustrated for hospital stay , INR still sub therapeutic wants to be discharged as soon as possible OBJECTIVE: Vital Signs-as noted below Exam: General-very pleasant elderly female, no sign of distress Eyes-sclera non icteric ENT-NAd Neck-no JVD Lungs-rales at base Heart-mechanical valve sound in 2nd rt ICS Abdomen-soft, non tender Extremities-no lower ext edema Neuro-AAO x3, no focal neurological deficit Lab data as noted below. ASSESSMENT & PLAN: LEFT ATRIAL APPENDAGE THROMBUS -was scheduled to have Dobutamine stress test at [facility] on Friday03/17/17 - patient sent for direct admission after resting echo demonstrated a mitral valve vegetation - patient with history of mechanical mitral and aortic valves replaced in 1996 -S/p MERVIN 03/08/17 -no vegetation noted on Medtronic-Rehman type mechanical prosthesis -left atrial appendage thrombus presented ( INR was recently subtherapeutic as out pt ) INR 1.8 today given 10 mg PO Coumadin yesterday -pt will be continued with Coumadin and IV Heparin till INR ~2.5 SOB /ERIC /CHRONIC NON PRODUCTIVE COUGH : due to Decompensated CHF with diastolic dysfunction symptom improved after diuresis non ischemic Dobutamine stress test 03/19/17 CHF WITH DIASTOLIC DYSFUNCTION : compensated vol status stable cont Lasix , Aldactone ATRIAL FIBRILLATION - rate controlled on metoprolol, INR 1.6-> 1.8 - cont IV heparin /Coumadin till INR ~2.5 -MERVIN shows left atrial appendage possible due to subtherapeutic INR in past Coumadin dose increased repeat PT/INR tomorrow pt will need hospital stay with IV heparin till INR therapeutic HTN - BP controlled - continue metoprolol, isosorbide, and hydralazine CKD STAGE IV -stable - baseline creat runs in the mid 2's - continue to monitor, avoid nephrotoxic agents when able DVT PROPHYLAXIS - on Coumadin /IV heparin CODE STATUS - Patient is a full code DVT PROPHYLAXIS IV heparin /Coumadin DISPOSITION Possible dc home tomorrow if INR therapeutic will need close monitoring of PT /INR level on discharge will benefit form home health visiting nurse for lab draws Social service consulted for discharge planning Medicine follow up with Dr Aguillon Cardiology follow up with Jorge Myers PA-C Vital Signs: Date Time Temp Pulse Resp B/P (MAP) Pulse Ox O2 Delivery O2 Flow Rate FiO2 03/20/17 16:00 Room Air 03/20/17 15:23 36.7 66 20 119/63 (81) 90 Room Air 03/20/17 14:25 70 119/65 (83) 03/20/17 08:03 81 16 127/77 (94) 96 Room Air 03/20/17 07:30 Room Air 03/20/17 00:01 36.6 67 17 121/59 (79) 95 Room Air 03/20/17 00:00 94 Room Air 03/19/17 20:57 36.7 81 20 124/73 (90) 94 Room Air 03/19/17 20:00 Room Air 03/19/17 19:22 36.8 67 20 120/56 (77) 94 Room Air Lab Results: Results Past 24 Hours Test 03/20/17 07:00 03/20/17 15:04 Range/Units White Blood Count 5.19 4.8-10.8 K/uL Red Blood Count 2.99 4.2-5.4 M/uL Hemoglobin 11.3 12.0-16.0 g/dL Hematocrit 33.6 37-47 % Mean Corpuscular Volume 112.4 80-100 fL Mean Corpuscular Hemoglobin 37.8 25-34 pg Mean Corpuscular Hemoglobin Concent 33.6 32-36 g/dl RDW Standard Deviation 60.7 36.4-46.3 fL RDW Coefficient of Variation 14.9 11.5-14.5 % Platelet Count 185 130-400 K/uL Mean Platelet Volume 10.2 7.4-10.4 fL Prothrombin Time 19.2 9.0-12.0 SECONDS Prothromb Time International Ratio 1.8 0.9-1.1 Activated Partial Thromboplast Time 73.1 63.2 21.0-31.0 SECONDS Partial Thromboplastin Ratio 2.8 2.4
[2017-03-20] MEDS: GUAIFENESIN 600 MG TABCR PO SCH (19:47)
[2017-03-20] MEDS: METOPROLOL TARTRATE 25 MG TAB PO SCH (20:46)
[2017-03-20] MEDS: RANITIDINE HCL 150 MG TAB PO SCH (20:47)
[2017-03-20] MEDS: GABAPENTIN 100 MG CAP PO SCH (20:47)
[2017-03-21 00:10] VITALS: BP 121/65; PULSE 74; TEMP 36.6; O2SAT 95
[2017-03-21] MEDS: LEVOTHYROXINE 25 MCG TAB PO SCH (05:44)
[2017-03-21 07:16] VITALS: BP 138/76; PULSE 75; TEMP 36.8; O2SAT 91
[2017-03-21] MEDS: FUROSEMIDE 40 MG TAB PO SCH (07:41)
[2017-03-21] MEDS: METOPROLOL TARTRATE 50 MG TAB PO SCH (07:41)
[2017-03-21] MEDS: MONTELUKAST SOD 10 MG TAB PO SCH (07:41)
[2017-03-21] MEDS: CYANOCOBALAMIN 500 MCG TAB (VIT B-12) PO SCH (07:41)
[2017-03-21] MEDS: CALCITRIOL 0.25 MCG CAP PO SCH ×2 (07:41→20:10)
[2017-03-21] MEDS: ISOSORBIDE MONONITRATE 30 MG TABCR PO SCH (07:41)
[2017-03-21] MEDS: GUAIFENESIN 600 MG TABCR PO SCH ×2 (07:41→20:12)
[2017-03-21] MEDS: ALLOPURINOL 100 MG TAB PO SCH (07:41)
[2017-03-21] MEDS: ASPIRIN 81 MG ECTAB PO SCH (07:42)
[2017-03-21] MEDS: SPIRONOLACTONE 25 MG TAB PO SCH (07:42)
[2017-03-21 07:56] LABS: INR 1.8 (0.9-1.1); PARTIAL THROMBOPLASTIN RATIO 2.8; PROTHROMBIN TIME (PATIENT) 20.1 SECONDS (9.0-12.0)
[2017-03-21] MEDS: HEPARIN 25,000 UNIT/500ML D5W 500 ML IV PRN (08:28)
[2017-03-21 14:00] VITALS: BP 116/66; PULSE 71
[2017-03-21 14:42] VITALS: BP 120/62; PULSE 67; TEMP 36.7; O2SAT 95
[2017-03-21 15:17] LABS: PARTIAL THROMBOPLASTIN RATIO 2.6
[2017-03-21 15:35] LABS: INR 1.9 (0.9-1.1); PROTHROMBIN TIME (PATIENT) 20.5 SECONDS (9.0-12.0)
[2017-03-21] MEDS ORDERED: WARFARIN SOD 10 MG TAB PO SCH (16:00)
[2017-03-21] MEDS: GABAPENTIN 100 MG CAP PO SCH (20:11)
[2017-03-21] MEDS: METOPROLOL TARTRATE 25 MG TAB PO SCH (20:13)
[2017-03-21] MEDS: RANITIDINE HCL 150 MG TAB PO SCH (20:14)
[2017-03-21 20:16] VITALS: BP 153/63; PULSE 78
--- NOTE | 2017-03-21 20:48 | Progress Note ---
Internal Med Progress Note Date of Service: Mar 21, 2017. Provider Documentation: SUBJECTIVE: eager to go home tearful as INR remains at 1.8 today pt's has dementia requires support her Daughters form [place] was helping their Dad all of the has to return home this weekend concerned for her , needs to return home WIL[place] pt is counselled over and over aging -with out INR being sub therapeutic high risk for Mechanical valve failure /clot migration of left atrial clot causing stroke will need to be on IV heparin till INR ~2.5 pt will be given 10 mg Coumadin today pt is willing to stay for one for night OBJECTIVE: Vital Signs-as noted below Exam: General-very pleasant elderly female, no sign of distress Eyes-sclera non icteric ENT-NAd Neck-no JVD Lungs-rales at base Heart-mechanical valve sound in 2nd rt ICS Abdomen-soft, non tender Extremities-no lower ext edema Neuro-AAO x3, no focal neurological deficit Lab data as noted below. ASSESSMENT & PLAN: LEFT ATRIAL APPENDAGE THROMBUS -was scheduled to have Dobutamine stress test at [facility] on Friday03/17/17 - patient sent for direct admission after resting echo demonstrated a mitral valve vegetation - patient with history of mechanical mitral and aortic valves replaced in 1996 -S/p MERVIN 03/08/17 -no vegetation noted on Medtronic-Rehman type mechanical prosthesis -left atrial appendage thrombus presented ( INR was recently subtherapeutic as out pt ) INR remains 1.8 -. > 1.8 today given 10 mg PO Coumadin yesterday/ordered for 10 mg today -pt will be continued with Coumadin and IV Heparin till INR ~2.5 SOB /ERIC /CHRONIC NON PRODUCTIVE COUGH : due to Decompensated CHF with diastolic dysfunction symptom improved after diuresis non ischemic Dobutamine stress test 03/19/17 CHF WITH DIASTOLIC DYSFUNCTION : compensated vol status stable cont Lasix , Aldactone ATRIAL FIBRILLATION - rate controlled on metoprolol, INR 1.6-> 1.8 -> 1.8 - cont IV heparin /Coumadin till INR ~2.5 -MERVIN shows left atrial appendage possible due to subtherapeutic INR in past Coumadin dose increased repeat PT/INR tomorrow pt will need hospital stay with IV heparin till INR therapeutic HTN - BP controlled - continue metoprolol, isosorbide, and hydralazine CKD STAGE IV -stable - baseline creat runs in the mid 2's - continue to monitor, avoid nephrotoxic agents when able DVT PROPHYLAXIS - on Coumadin /IV heparin CODE STATUS - Patient is a full code DVT PROPHYLAXIS IV heparin /Coumadin DISPOSITION Possible dc home tomorrow if INR therapeutic will need close monitoring of PT /INR level on discharge referral made for [facility], pt will need PT/INR drawn on Friday03/23/17. Social service consulted for discharge planning -appreciate input Medicine follow up with Dr Aguillon Cardiology follow up with Jorge Myers PA-C Vital Signs: Date Time Temp Pulse Resp B/P (MAP) Pulse Ox O2 Delivery O2 Flow Rate FiO2 03/21/17 20:16 78 153/63 (93) 03/21/17 16:00 Room Air 03/21/17 14:42 36.7 67 20 120/62 (81) 95 03/21/17 14:00 71 116/66 (83) 03/21/17 08:00 Room Air 03/21/17 07:16 36.8 75 18 138/76 (96) 91 Room Air 03/21/17 00:30 Room Air 03/21/17 00:10 36.6 74 17 121/65 (83) 95 Room Air Lab Results: Results Past 24 Hours Test 03/21/17 07:06 03/21/17 14:46 Range/Units Prothrombin Time 20.1 20.5 9.0-12.0 SECONDS Prothromb Time International Ratio 1.8 1.9 0.9-1.1 Activated Partial Thromboplast Time 73.4 67.2 21.0-31.0 SECONDS Partial Thromboplastin Ratio 2.8 2.6
[2017-03-21 23:37] VITALS: BP 127/68; PULSE 81; TEMP 37; O2SAT 94
[2017-03-22] MEDS: HEPARIN 25,000 UNIT/500ML D5W 500 ML IV PRN ×2 (05:15→08:10)
[2017-03-22] MEDS: LEVOTHYROXINE 25 MCG TAB PO SCH (05:16)
[2017-03-22 07:17] LABS: HEMATOCRIT 32.8 % (37-47); MEAN CELL VOLUME 110.1 fL (80-100); MEAN CORPUSCULAR HEMOGLOBIN 37.2 pg (25-34); MEAN CORPUSCULAR HGB CONC 33.8 g/dl (32-36); MEAN PLATELET VOLUME 10.1 fL (7.4-10.4); PLATELET COUNT 190 K/uL (130-400); RED BLOOD COUNT 2.98 M/uL (4.2-5.4); WHITE BLOOD COUNT 4.88 K/uL (4.8-10.8)
[2017-03-22 07:33] VITALS: BP 136/74; PULSE 81; TEMP 36.7; O2SAT 93
[2017-03-22] MEDS: ISOSORBIDE MONONITRATE 30 MG TABCR PO SCH (07:35)
[2017-03-22] MEDS: GUAIFENESIN 600 MG TABCR PO SCH (07:35)
[2017-03-22] MEDS: ALLOPURINOL 100 MG TAB PO SCH (07:36)
[2017-03-22] MEDS: CALCITRIOL 0.25 MCG CAP PO SCH (07:36)
[2017-03-22] MEDS: CYANOCOBALAMIN 500 MCG TAB (VIT B-12) PO SCH (07:37)
[2017-03-22] MEDS: SPIRONOLACTONE 25 MG TAB PO SCH (07:37)
[2017-03-22] MEDS: MONTELUKAST SOD 10 MG TAB PO SCH (07:38)
[2017-03-22] MEDS: ASPIRIN 81 MG ECTAB PO SCH (07:38)
[2017-03-22] MEDS: FUROSEMIDE 40 MG TAB PO SCH (07:38)
[2017-03-22 07:43] LABS: INR 2.3 (0.9-1.1); PARTIAL THROMBOPLASTIN RATIO 3.1
--- NOTE | 2017-03-22 09:26 | Progress Note ---
Internal Med Progress Note Date of Service: Mar 22, 2017. Provider Documentation: SUBJECTIVE: feels fine no complain of SOB /Chest heaviness INR 2.3 today Ok to discharged home today pt will continue her previous dose of Coumadin PT/INR draw tomorrow by home health nursing OBJECTIVE: Vital Signs-as noted below Exam: General-very pleasant elderly female, no sign of distress Eyes-sclera non icteric ENT-NAd Neck-no JVD Lungs-rales at base Heart-mechanical valve sound in 2nd rt ICS Abdomen-soft, non tender Extremities-no lower ext edema Neuro-AAO x3, no focal neurological deficit Lab data as noted below. ASSESSMENT & PLAN: LEFT ATRIAL APPENDAGE THROMBUS -was scheduled to have Dobutamine stress test at [facility] on Friday03/17/17 - patient sent for direct admission after resting echo demonstrated a mitral valve vegetation - patient with history of mechanical mitral and aortic valves replaced in 1996 -S/p MERVIN 03/08/17 -no vegetation noted on Medtronic-Rehman type mechanical prosthesis -left atrial appendage thrombus presented ( INR was recently subtherapeutic as out pt ) INR 2.3 today Ok to discharged home today pt will continue her previous dose of Coumadin PT/INR draw tomorrow by home health nursing SOB /ERIC /CHRONIC NON PRODUCTIVE COUGH : due to Decompensated CHF with diastolic dysfunction symptom improved after diuresis non ischemic Dobutamine stress test 03/19/17 CHF WITH DIASTOLIC DYSFUNCTION : compensated vol status stable cont Lasix , Aldactone ATRIAL FIBRILLATION - rate controlled on metoprolol, - was on IV heparin /Coumadin -MERVIN shows left atrial appendage possible due to subtherapeutic INR in past INR 2.3 today Ok to discharged home today pt will continue her previous dose of Coumadin PT/INR draw tomorrow Friday03/23/17 by home health nursing HTN - BP controlled - continue metoprolol, isosorbide, and hydralazine CKD STAGE IV -stable - baseline creat runs in the mid 2's - continue to monitor, avoid nephrotoxic agents when able DVT PROPHYLAXIS - on Coumadin D/C IV heparin as INR 2.3 CODE STATUS - Patient is a full code DISPOSITION Discharge home today will need close monitoring of PT /INR level on discharge referral made for [facility]- PT/INR to be drawn on Friday. Social service consulted for discharge planning -appreciate input Medicine follow up with Dr Aguillon Cardiology follow up with Jorge Myers PA-C Vital Signs: Date Time Temp Pulse Resp B/P (MAP) Pulse Ox O2 Delivery O2 Flow Rate FiO2 03/22/17 07:33 36.7 81 16 136/74 (94) 93 Room Air 03/22/17 00:00 Room Air 03/21/17 23:37 37.0 81 20 127/68 (87) 94 Room Air 03/21/17 20:16 78 153/63 (93) 03/21/17 16:00 Room Air 03/21/17 14:42 36.7 67 20 120/62 (81) 95 03/21/17 14:00 71 116/66 (83) Lab Results: Results Past 24 Hours Test 03/21/17 14:46 03/22/17 06:54 Range/Units Prothrombin Time 20.5 25.0 9.0-12.0 SECONDS Prothromb Time International Ratio 1.9 2.3 0.9-1.1 Activated Partial Thromboplast Time 67.2 81.5 21.0-31.0 SECONDS Partial Thromboplastin Ratio 2.6 3.1 White Blood Count 4.88 4.8-10.8 K/uL Red Blood Count 2.98 4.2-5.4 M/uL Hemoglobin 11.1 12.0-16.0 g/dL Hematocrit 32.8 37-47 % Mean Corpuscular Volume 110.1 80-100 fL Mean Corpuscular Hemoglobin 37.2 25-34 pg Mean Corpuscular Hemoglobin Concent 33.8 32-36 g/dl RDW Standard Deviation 58.2 36.4-46.3 fL RDW Coefficient of Variation 14.5 11.5-14.5 % Platelet Count 190 130-400 K/uL Mean Platelet Volume 10.1 7.4-10.4 fL
--- NOTE | 2017-03-22 09:29 | Discharge Summary ---
Discharge Summary Date of Service Mar 22, 2017. Discharge Summary Admission Date: Mar 17, 2017 at 11:08 Discharge Date: Mar 21, 2017 Discharge Disposition: Home with services Principal Diagnosis: SOB /CHF /LEFT ATRIAL APPENDAGE CLOT /AFIB Procedures: MERVIN -no vegetation noted on Medtronic-Rehman type mechanical prosthesis -left atrial appendage thrombus presented DOBUTAMINE STRESS TEST ; -negative for stress induced ischemia Consultations: [facility] Medication Reconciliation Continued Medications: Allopurinol (Zyloprim) 100 Mg Tab 100 MG PO DAILY, TAB Aspirin Enteric Coated (Ecotrin Or Generic) 81 Mg Tab 81 MG PO DAILY, TAB Calcitriol (Rocaltrol Cap) 0.25 Mcg Cap 1 CAP PO BID for 30 Days, #60 CAP 5 Refills Cyanocobalamin (Vitamin B-12 1000 Mcg) 1,000 Mcg Tab 1 TAB PO DAILY for 30 Days, #30 TAB 2 Refills Furosemide (Lasix) 20 Mg Tab 40 MG PO DAILY, TAB Gabapentin (Neurontin) 100 Mg Cap 100 MG PO HS, CAP Hydralazine Hcl (Apresoline) 50 Mg Tab 1 TAB PO TID for 30 Days, #90 TAB 5 Refills Isosorbide Mononitrate Ext Rel (Imdur Ext Rel) 30 Mg Tabcr 1 TAB PO QAM, TAB Levothyroxine Sodium (Synthroid) 25 Mcg Tab 25 MCG PO DAILY, TAB Metoprolol Tartrate (Lopressor) 50 Mg Tab 50 MG PO DAILY, TAB Metoprolol Tartrate (Lopressor) 50 Mg Tab 25 MG PO HS, TAB Montelukast Sodium (Montelukast Sodium) 10 Mg Tab 1 TAB PO DAILY for 30 Days, #30 TAB 5 Refills Ranitidine (Zantac) 300 Mg Tab 300 MG PO HS, TAB Spironolactone (Aldactone) 25 Mg Tab 12.5 MG PO DAILY for 90 Days, #45 TAB 1 Refill Warfarin Sod (Coumadin Unknown Dose) Tab 3.75 MG PO DAILY Referrals At Discharge Follow up Referrals: Pack Worker Referral - 03/26/17 with Jorge Myers PA-C Physician Referral - 03/28/17 with Carol Galicia D.O. Admission Information HPI (per Admitting provider): 76 year old female who was referred by the cardiology office for direct admission after being found to have a vegetation on her mitral valve. Patient has history of mechanical aortic and mitral valve replacements in 1996. Patient notes increasing shortness of breath for the past 6 months. She was recently evaluated by cardiology who increased her diuretics however she saw minimal improvement in her shortness of breath. She was scheduled for a stress today and resting echocardiogram showed a vegetation on the mitral valve. Patient reports a persistent cough productive for white sputum. She denies fever and chills. No chest pain or palpitations. She denies lightheadedness, dizziness, diaphoresis, or syncope. No abdominal pain, nausea, vomiting, or diarrhea. She denies urinary symptoms. At the time of my exam, patient is resting in bed in no acute distress. Physical Exam (per Admitting): General Appearance: no apparent distress Head: normocephalic Eyes: normal inspection ENT: hearing grossly normal Neck: supple, no JVD Respiratory/Chest: lungs clear, normal breath sounds, no respiratory distress Cardiovascular: no edema, + irregularly irregular (controlled rate) Abdomen/GI: normal bowel sounds, non tender, soft Extremities/Musculoskelatal: normal inspection, no calf tenderness Neurologic/Psych: no motor/sensory deficits, alert, normal mood/affect, oriented x 3 Skin: normal color, warm/dry Hospital Course LEFT ATRIAL APPENDAGE THROMBUS -was scheduled to have Dobutamine stress test at [facility] on Friday03/17/17 - patient sent for direct admission after resting echo demonstrated a mitral valve vegetation - patient with history of mechanical mitral and aortic valves replaced in 1996 -S/p MERVIN 03/08/17 -no vegetation noted on Medtronic-Rehman type mechanical prosthesis -left atrial appendage thrombus presented ( INR was recently subtherapeutic as out pt ) INR 2.3 today Ok to discharged home today pt will continue her previous dose of Coumadin PT/INR draw tomorrow by home health nursing SOB /ERIC /CHRONIC NON PRODUCTIVE COUGH : due to Decompensated CHF with diastolic dysfunction symptom improved after diuresis non ischemic Dobutamine stress test 03/19/17 CHF WITH DIASTOLIC DYSFUNCTION : compensated vol status stable cont Lasix , Aldactone ATRIAL FIBRILLATION - rate controlled on metoprolol, - was on IV heparin /Coumadin -MERVIN shows left atrial appendage possible due to subtherapeutic INR in past INR 2.3 today Ok to discharged home today pt will continue her previous dose of Coumadin PT/INR draw tomorrow Friday03/23/17 by home health nursing HTN - BP controlled - continue metoprolol, isosorbide, and hydralazine CKD STAGE IV -stable - baseline creat runs in the mid 2's - continue to monitor, avoid nephrotoxic agents when able DVT PROPHYLAXIS - on Coumadin D/C IV heparin as INR 2.3 CODE STATUS - Patient is a full code DISPOSITION Discharge home today will need close monitoring of PT /INR level on discharge referral made for [facility]- PT/INR to be drawn on Friday. Social service consulted for discharge planning -appreciate input Medicine follow up with Dr Aguillon Cardiology follow up with Jorge Myers PA-C Total time spent on discharge = 35 MINS This includes examination of the patient, discharge planning, medication reconciliation, and communication with other providers. Discharge Instructions Discharge Instructions Date of Service Mar 20, 2017. Admission Reason for Admission: Vegetation On Mitral Valve Discharge Discharge Diagnosis / Problem: SOB /CHF /LEFT ATRIAL APPENDAGE CLOT /AFIB Discharge Goals Goal(s): Decrease discomfort, Diagnostic testing, Therapeutic intervention Activity Recommendations Activity Limitations: resume your previous activity Shower/Bathe: no limitations . Instructions / Follow-Up Instructions / Follow-Up HOSPITAL FOLLOW UP ON 03/28/2017 @ 10:[address] Carol Galicia Internal Medicine [facility] CARDIOLOGY FOLLOW UP : 03/26/2017 @ 10:15 AM WITH Jorge Myers PA-C Cardiology, [facility] PT/INR CHECK ON Friday03/23/17 Call your Primary Care doctor if any of the following symptoms or problems start or get worse: * Shortness of breath or difficulty breathing * Wake up at night short of breath * Chest pain * Cough * Swelling of your hands, feet, or legs * More fatigued or tired with your normal activity * Palpitations - sudden fast heart beats WEIGHT * Weigh yourself every morning after using the bathroom. * Use the same scale. * Wear the same amount of clothing. * Write your weight down on a chart. * Call your Primary Care doctor if you gain more than 2-3 pounds in 1-2 days. MEDICATIONS * Use this discharge instruction sheet for medication instructions. * Take your medications at the time your doctor ordered. * Do not skip a dose of your medicines. * If you miss a dose of medicine, take it as soon as possible, but DO NOT DOUBLE A DOSE. * Read your medicine information when you get home. * Know all of the side effects of your medicine. If in doubt, ask your pharmacist * Call your Primary Care doctor's office if you have any side effects. * Be sure all of your doctors know what medicine and herbs you take (including cold, flu, and herbal medicine). Take the following with you to your follow-up doctor appointments: * Weight Chart * Medication List * List of questions Do not drink excessive alcohol, beer or wine. Current Hospital Diet Patient's current hospital diet: AHA Diet (Heart Healthy), Low Sodium Diet (2gm Na) Discharge Diet Recommended Diet: AHA Diet (Heart Healthy), Low Sodium Diet (2gm Na) Procedures Procedures Performed: MERVIN Pending Studies Studies pending at discharge: no Medical Emergencies . Who to Call and When: Call 911 or go to the Emergency Room if: * If at any time you feel your situation is an emergency * You have tightness or pain in your chest that does not go away with rest or Nitroglycerin * You are very short of breath even with rest . Non-Emergent Contact Non-Emergency issues call your: Primary Care Provider . . "Provider Documentation" section prepared by Margarita Hernandez. . VTE Core Measure Inpt VTE Proph given/why not?: Warfarin (Coumadin) Additional Copies To Carol Galicia D.O. Lombardo, Mark, PA-C
[2017-03-22] MEDS: METOPROLOL TARTRATE 50 MG TAB PO SCH (09:33)
[2017-03-22 09:35] VITALS: BP 136/74; PULSE 81; TEMP 36.7; O2SAT 93
--- NOTE | 2017-03-25 10:26 | EDITING REQUIRED CODING QUERY ---
CONGESTIVE HEART FAILURE To Promote full compliance with coding requirements relating to patient care, physician participation is requested in all cases of edger liner uncertainty. Please assist us with the following questions. A diagnosis of Congestive Heart Failure is documented in the patient's medical record. To accurately code this diagnosis and to compare patient severity, we ask that you specify the type of heart failure by placing an X within the parenthesis (x). SYSTOLIC HEART FAILURE ( ) Acute ( ) Chronic ( ) Acute on Chronic ( ) Rheumatic ( ) Unknown DIASTOLIC HEART FAILURE ( ) Acute ( ) Chronic ( x ) Acute on Chronic ( ) Rheumatic ( ) Unknown COMBINED SYSTOLIC AND DIASTOLIC HEART FAILURE ( ) Acute ( ) Chronic ( ) Acute on Chronic ( ) Rheumatic ( ) Unknown Was the CHF Present On Admission? Please check the appropriate box: ( ) Present on Admission ( ) Not Present On Admission ( ) Clinically undetermined Thank you BOO Arrington CCS
[2017-06-12] MEDS ORDERED: IMDSR60 PO (15:17)
[2017-06-12] MEDS ORDERED: LPT40 PO (15:17)
[2017-06-12] MEDS ORDERED: FLV1 PO (15:17)
[2017-06-12] MEDS ORDERED: FRRS300 PO (15:17)
[2017-06-12] MEDS ORDERED: NTRSLP4 SL (15:17)
== END 2017-03-22 09:53 | disposition home health service (06) | DRG 302 ==
LOC: C.2T 11:08 → ENRESERV 03-19 20:26 → C.MS4W 03-19 20:49
PROVIDERS: ADMIT Internal Medicine; ATTEND Hospitalist
DX: I51.3 Intracardiac thrombosis, not elsewhere classified (principal); I50.33 Acute on chronic diastolic (congestive) heart failure; N18.4 Chronic kidney disease, stage 4 (severe); I13.0 Hypertensive heart and chronic kidney disease with heart failure and stage 1 through stage 4 chronic kidney disease, or unspecified chronic kidney disease; I48.2 Chronic atrial fibrillation; E78.5 Hyperlipidemia, unspecified; M10.9 Gout, unspecified; M81.0 Age-related osteoporosis without current pathological fracture; I09.9 Rheumatic heart disease, unspecified; Z96.643 Presence of artificial hip joint, bilateral; F17.210 Nicotine dependence, cigarettes, uncomplicated; Z79.01 Long term (current) use of anticoagulants; J44.9 Chronic obstructive pulmonary disease, unspecified; Z95.2 Presence of prosthetic heart valve

== ENCOUNTER 2017-06-09 11:55 | Inpatient (IN) | payer OTHER ==
[~2017-06-09] VITALS: Ht 157.5 cm; Wt 55.3 kg
[2017-06-09] VITALS (8 sets, daily range): BP systolic 109–178; BP diastolic 54–71; PULSE 72–78; TEMP 36.4–37; O2SAT 87–97; Ht 157.5 cm; Wt 55.3 kg
[~2017-06-09 11:55] MED LIST changes: +CALC0.25 PO; +CYAN10004 PO; -DIGO0.1267 PO; -FENO48TA9 PO; -FISHOIL PO; +GABA-112 PO; -HYDR-4715 PO; +HYDR-4717 PO; +ISOS30TA35 PO; -LRT5 PO; +MONT1TAB5 PO; -OXGN; +RANI300T2 PO; -WARF5TAB90 PO
[2017-06-09] MEDS ORDERED: NITROGLYCERIN 0.4 MG SL PER TAB CHARGE SL STA (12:30)
[2017-06-09] MEDS ORDERED: WARF2.5T8 PO (12:33)
--- NOTE | 2017-06-09 12:52 | DIAGNOSTIC IMAGING REPORT ---
CHEST ONE VIEW PORTABLE CLINICAL HISTORY: Chest pain. COMPARISON STUDY: Chest radiograph March 12, 2012. FINDINGS: Note is made of median sternotomy wires and two prosthetic cardiac valves. Moderate cardiomegaly is noted. No pneumothorax or pleural effusion is identified. Mild interstitial thickening is present. This favors mild pulmonary edema. There is no consolidation to suggest pneumonia. IMPRESSION: 1. Interstitial thickening suggestive of mild pulmonary edema. 2. Moderate cardiomegaly. Electronically signed by: Calixto Toscano M.D. 06/09/2017 12:51 PM Dictated Date/Time: 06/09/2017 12:49 PM
[2017-06-09 12:53] LABS: BASO % 0.7 %; BASO ABS # 0.04 K/uL (0-0.2); COMPLETE YES; EOS % 2.7 %; HEMATOCRIT 28.6 % (37-47); IG% 0.2 %; LYMPH % 16.5 %; LYMPH ABS # 0.99 K/uL (1.2-3.4); MEAN CELL VOLUME 105.5 fL (80-100); MEAN CORPUSCULAR HEMOGLOBIN 33.9 pg (25-34); MEAN CORPUSCULAR HGB CONC 32.2 g/dl (32-36); MEAN PLATELET VOLUME 9.7 fL (7.4-10.4); MONO % 9.8 %; NEUT % 70.1 %; PLATELET COUNT 270 K/uL (130-400); RED BLOOD COUNT 2.71 M/uL (4.2-5.4); WHITE BLOOD COUNT 5.99 K/uL (4.8-10.8)
[2017-06-09 13:00] LABS: BLOOD UREA NITROGEN 68 mg/dl (7-18); BUN/CREATININE RATIO 25.1 (10-20); CALCIUM 9.1 mg/dl (8.5-10.1); CARBON DIOXIDE 26 mmol/L (21-32); CHLORIDE 102 mmol/L (98-107); GLUCOSE 90 mg/dl (70-99); POTASSIUM 3.8 mmol/L (3.5-5.1); SODIUM 138 mmol/L (136-145)
[2017-06-09] MEDS ORDERED: FENTANYL CITRATE INJ 50 MCG/1 ML 2 ML VIAL IV STA (13:00)
[2017-06-09] MEDS ORDERED: ONDANSETRON INJ 2 MG/ML 2 ML VIAL IV STA (13:00)
[2017-06-09 13:01] LABS: INR 2.5 (0.9-1.1); PARTIAL THROMBOPLASTIN RATIO 1.4; PROTHROMBIN TIME (PATIENT) 27.4 SECONDS (9.0-12.0)
--- NOTE | 2017-06-09 14:07 | EMERGENCY ROOM VISIT NOTE ---
History Report prepared by Katiana: Charles Maddox Under the Supervision of: Dr. Nick Nj M.D. First contact with patient: 12:20 Chief Complaint: CARDIAC ASSESSMENT Stated Complaint: CHEST PAIN Nursing Triage Summary: Chest tightness and short of breath, pt states started on Friday and has not let up. History of Present Illness The patient is a 76 year old female who presents to the Emergency Room with complaints of constant centralized chest tightness that began 3 days ago. She rates her pain moderate in severity. She has a past medical history of CHF, a left atrial clot, a mitral valve replacement, and an aortic valve replacement. She has never experienced this kind of pain before. She states that her pain worsens with exertion, but not with generalized movement. It also is radiating down her bilateral arms. She denies any history of a heart attack or a blood clot in her lungs. She is also experiencing shortness of breath and bilateral leg swelling. She is taking Lasix and states that her leg swelling is under control. She denies any fevers, cough, sorethroat, or rhinorrhea. She is currently on Coumadin and Isosorbide. Source of History: patient Onset: 3 days ago Position: chest (centralized) Symptom Intensity: moderate Quality: other (Tightness) Timing: constant Modifying Factors (Worsening): exertion Associated Symptoms: + SOB, No fevers, No sorethroat, No cough Note: Her chest pain is radiating down her bilateral arms. Review of Systems See HPI for pertinent positives & negatives. A total of 10 systems reviewed and were otherwise negative. Past Medical & Surgical Medical Problems: (1) Atrial fibrillation (2) CKD (chronic kidney disease), stage IV (3) Dyslipidemia (4) Gout (5) HTN (hypertension) (6) Hypothyroidism (7) Left atrial thrombus (8) Osteoporosis (9) Rheumatic heart disease (10) Spinal stenosis Surgical Problems: (1) H/O aortic valve replacement (2) H/O mitral valve replacement (3) History of hysterectomy (4) Hx of thyroidectomy (5) Status post total hip replacement, left (6) Status post total hip replacement, right Family History Stroke MOTHER Social History Smoking Status: Current Every Day Smoker Drug Use: none Marital Status: Housing Status: lives with family Occupation Status: retired Current/Historical Medications Scheduled Allopurinol (Zyloprim), 100 MG PO DAILY Aspirin Enteric Coated (Ecotrin Or Generic), 81 MG PO DAILY Calcitriol (Rocaltrol Cap), 1 CAP PO 2XWK Cyanocobalamin (Vitamin B-12 1000 Mcg), 1 TAB PO DAILY Furosemide (Lasix), 40 MG PO DAILY Gabapentin (Neurontin), 100 MG PO HS Hydralazine Hcl (Apresoline), 1 TAB PO TID Isosorbide Mononitrate Ext Rel (Imdur Ext Rel), 1 TAB PO QAM Levothyroxine Sodium (Synthroid), 25 MCG PO DAILY Metoprolol Tartrate (Lopressor), 50 MG PO DAILY Metoprolol Tartrate (Lopressor), 25 MG PO HS Montelukast Sodium (Montelukast Sodium), 1 TAB PO DAILY Ranitidine (Zantac), 300 MG PO HS Spironolactone (Aldactone), 12.5 MG PO DAILY Warfarin Sod (Jantoven), 3.75 MG PO DAILY Allergies Coded Allergies: No Known Allergies (Unverified , 03/27/12) Physical Exam Vital Signs Date Time Temp Pulse Resp B/P (MAP) Pulse Ox O2 Delivery O2 Flow Rate FiO2 06/09/17 13:01 134/63 06/09/17 12:55 80 19 97 06/09/17 12:46 130/62 06/09/17 12:43 91 Room Air 06/09/17 12:43 93 Nasal Cannula 2.0 06/09/17 12:41 105/52 06/09/17 12:40 96 Room Air 06/09/17 12:36 130/74 06/09/17 12:34 141/64 06/09/17 12:25 81 22 06/09/17 12:12 76 06/09/17 12:02 98 Room Air 06/09/17 12:00 36.4 79 18 147/68 98 Room Air Physical Exam Constitutional: Vital signs reviewed. Eyes: Pupils are equal round reactive to light. Conjunctiva are noninjected. ENT: Pharynx is clear without erythema or exudate. Mucous membranes are moist. Neck supple without meningeal signs. Respiratory: Clear to auscultation bilaterally. Breath sounds are equal bilaterally. Cardiovascular: Regular rate and rhythm. No rubs or gallops. Mechanical valve. GI: Soft, nondistended and nontender. Bowel sounds are present. Rectal: Guaiac positive light brown stool. No gross blood or melena. Musculoskeletal: No peripheral edema. No lower extremity tenderness. Integumentary: No cyanosis. Neurological: The patient is awake and alert. No focal deficits. Psychiatric: Normal affect. Medical Decision & Procedures ER Provider Diagnostic Interpretation: Radiology results as stated below per my review and the radiologist's interpretation: CHEST ONE VIEW PORTABLE CLINICAL HISTORY: Chest pain. COMPARISON STUDY: Chest radiograph March 12, 2012. FINDINGS: Note is made of median sternotomy wires and two prosthetic cardiac valves. Moderate cardiomegaly is noted. No pneumothorax or pleural effusion is identified. Mild interstitial thickening is present. This favors mild pulmonary edema. There is no consolidation to suggest pneumonia. IMPRESSION: 1. Interstitial thickening suggestive of mild pulmonary edema. 2. Moderate cardiomegaly. Electronically signed by: Calixto Toscano M.D. 06/09/2017 12:51 PM Dictated Date/Time: 06/09/2017 12:49 PM Laboratory Results 06/09/17 12:12 Red Blood Count 2.71, Mean Corpuscular Volume 105.5, Mean Corpuscular Hemoglobin 33.9, Mean Corpuscular Hemoglobin Concent 32.2, Mean Platelet Volume 9.7, Neutrophils (%) (Auto) 70.1, Lymphocytes (%) (Auto) 16.5, Monocytes (%) ( Auto) 9.8, Eosinophils (%) (Auto) 2.7, Basophils (%) (Auto) 0.7, Neutrophils # ( Auto) 4.20, Lymphocytes # (Auto) 0.99, Monocytes # (Auto) 0.59, Eosinophils # ( Auto) 0.16, Basophils # (Auto) 0.04 06/09/17 12:12 Test 06/09/17 12:12 06/09/17 12:37 White Blood Count 5.99 K/uL (4.8-10.8) Red Blood Count 2.71 M/uL (4.2-5.4) Hemoglobin 9.2 g/dL (12.0-16.0) Hematocrit 28.6 % (37-47) Mean Corpuscular Volume 105.5 fL (80-100) Mean Corpuscular Hemoglobin 33.9 pg (25-34) Mean Corpuscular Hemoglobin Concent 32.2 g/dl (32-36) Platelet Count 270 K/uL (130-400) Mean Platelet Volume 9.7 fL (7.4-10.4) Neutrophils (%) (Auto) 70.1 % Lymphocytes (%) (Auto) 16.5 % Monocytes (%) (Auto) 9.8 % Eosinophils (%) (Auto) 2.7 % Basophils (%) (Auto) 0.7 % Neutrophils # (Auto) 4.20 K/uL (1.4-6.5) Lymphocytes # (Auto) 0.99 K/uL (1.2-3.4) Monocytes # (Auto) 0.59 K/uL (0.11-0.59) Eosinophils # (Auto) 0.16 K/uL (0-0.5) Basophils # (Auto) 0.04 K/uL (0-0.2) RDW Standard Deviation 62.1 fL (36.4-46.3) RDW Coefficient of Variation 16.0 % (11.5-14.5) Immature Granulocyte % (Auto) 0.2 % Immature Granulocyte # (Auto) 0.01 K/uL (0.00-0.02) Prothrombin Time 27.4 SECONDS (9.0-12.0) Prothromb Time International Ratio 2.5 (0.9-1.1) Activated Partial Thromboplast Time 36.4 SECONDS (21.0-31.0) Partial Thromboplastin Ratio 1.4 Anion Gap 10.0 mmol/L (3-11) Estimated GFR () 19.1 Estimated GFR (Non- 16.5 BUN/Creatinine Ratio 25.1 (10-20) Calcium Level 9.1 mg/dl (8.5-10.1) Pro-B-Type Natriuretic Peptide 7242 pg/ml (0-1800) Bedside Troponin I 0.040 ng/ml (0-0.045) Laboratory results as reviewed by me. Medications Administered Medications (Trade) Dose Ordered Sig/Shana Route Start Time Stop Time Status Last Admin Dose Admin Nitroglycerin (Nitrostat Tab) 0.4 mg Q5M STAT SL 06/09/17 12:30 06/09/17 12:31 DC 06/09/17 12:35 0.4 MG Fentanyl Citrate (Fentanyl Inj) 50 mcg NOW STAT IV 06/09/17 13:00 06/09/17 13:02 DC 06/09/17 13:13 50 MCG Ondansetron HCl (Zofran Inj) 4 mg NOW STAT IV 06/09/17 13:00 06/09/17 13:02 DC 06/09/17 13:12 4 MG ECG Indication: chest pain, SOB/dyspnea Rate (beats per minute): 74 Rhythm: atrial fibrillation Findings: T-wave inversion (Precordial and high lateral), other (No PVCs) ED Course 1220: The patient was evaluated in room C8. A complete history and physical exam was performed. 1230: Ordered Nitroglycerin 0.4 mg SL 1300: She did not have any change in her symptoms with 1 NTG. Ordered Zofran Inj 4 mg IV, Fentanyl Inj 50 mcg. 1323: I spoke with Melani Kay, at this time. We discussed the patient's case. She will be evaluating the patient for further management and care. 1400: Chest pain improved. Medical Decision This is a 76-year-old female presents with chest pain and shortness of breath. Differential diagnosis includes unstable angina, [place], pulmonary embolism, pleurisy, pneumonia. I did perform a limited focused review of portions of the patient's old chart on the electronic medical record. The patient was treated as an inpatient in this hospital on March 22, 2017 for CHF, a left atrial clot, and atrial fibrillation. She had a MERVIN which showed no vegetation on mechanical prosthesis. She also had a negative Dobutamine stress test. I did evaluate the patient as noted above. The patient is presenting with constant chest pain since Friday. She describes it as a tightness radiating down both arms. She has some shortness of breath with it as well. She is on Coumadin because of her mechanical valves. IV access was established. The patient was placed on a continuous metal tank builder. I did order and personally review the patient's 12-lead EKG and chest x-ray as described above. Her twelve -lead EKG demonstrates T-wave inversions as described above. The T wave inversions in the high lateral leads are new compared to her old EKG. She was noted to have CHF on her chest x-ray. I did order and review the patient's blood work as noted in the electronic medical record. Initial troponin is negative. Her hemoglobin is 9.2 down from 11. and March. I did perform a rectal examination which showed light brown stool which was trace guaiac positive. No gross blood was noted. No melena. She does have chronic kidney disease. I did discuss the test results with the patient. The patient was treated with nitroglycerin which did not alleviate her chest pain. She was given fentanyl IV which did improve her chest pain. I did recommend hospitalization for further evaluation of her symptoms. I did fill pulmonary embolism was less likely given her INR is 2.5. She will need repeat H&H's as well as headache enzymes. I did discuss case with the hospitalist and major case detective. Medication Reconcilliation Current Medication List: was personally reviewed by me Blood Pressure Screening Patient's blood pressure: Elevated blood pressure Blood pressure disposition: Referred to PCP Consults Time Called: 1320 Consulting Physician: Melani Call [facility] Returned Call: 1323 I spoke with Melani TANG of [facility] Hospitalist Service. We discussed the patient and her results. The patient will be further evaluated by her. Impression Primary Impression: Exertional chest pain Additional Impressions: Abnormal ECG Anticoagulated on Coumadin CKD (chronic kidney disease) Anemia Scribe Attestation The scribe's documentation has been prepared under my direct and personally reviewed by me in its entirety. I confirm that the note above accurately reflects all work, treatment, procedures, and medical decision making performed by me. Departure Information Dispostion Being Evaluated By Hospitalist Referrals Lana Aguillon M.D. (PCP) Patient Instructions [facility] Problem Qualifiers Additional Impressions: CKD (chronic kidney disease) Chronic kidney disease stage: unspecified stage Qualified Codes: N18.9 - Chronic kidney disease, unspecified Anemia Anemia type: unspecified type Qualified Codes: D64.9 - Anemia, unspecified
[2017-06-09] MEDS ORDERED: ACETAMINOPHEN 325 MG TAB PO PRN (14:30)
[2017-06-09] MEDS ORDERED: NITROGLYCERIN 0.4 MG SL PER TAB CHARGE SL PRN (14:30)
[2017-06-09] MEDS ORDERED: ONDANSETRON INJ 2 MG/ML 2 ML VIAL IV PRN (14:30)
[2017-06-09] MEDS ORDERED: IV FLUIDS COMPLETED PRN (14:45)
[2017-06-09] MEDS ORDERED: CMD/25 PO (15:01)
[2017-06-09] MEDS ORDERED: WARFARIN SOD 2.5 MG TAB PO SCH (15:15)
[2017-06-09 15:44] LABS: FERRITIN 30.5 ng/ml (8.0-388.0)
[2017-06-09] MEDS ORDERED: WARFARIN SOD 5 MG TAB PO SCH (16:00)
[2017-06-09] MEDS ORDERED: GI COCKTAIL PO STA (20:10)
--- NOTE | 2017-06-09 20:13 | History and Physical ---
History & Physical Date & Time of Service: Jun 09, 2017 ~ 14:00 Chief Complaint: Chest Pain Primary Care Physician: Lana Aguillon M.D. History of Present Illness 76 year old female who presents to the ER with chest pain. She reports her symptoms started 4 days ago. She describes the pain as located substernally/ epigastric area. She describes the pain as pressure and knot like feeling. Pain was brought on with exertion and relieved however not resolved with rest. She reports the pain #10/10 at its worst. She also had associated pain going down both arms and associated shortness of breath. She is to wear oxygen at night however is non complaint. She continues to smoke. She thinks she may have had similar pain after eating earlier in the week. She denies associated lightheadedness, dizziness, diaphoresis, or syncopal events. She denies abdominal pain, nausea, vomiting, or diarrhea. No fever or chills. She denies urinary symptoms. In the ED, patient was given nitro without improvement in her pain. She was then given Fentanyl and reports she feels much better. Initial troponin is negative, EKG shows new T-wave inversions laterally. Past Medical/Surgical History Medical Problems: (1) Atrial fibrillation Status: Chronic (2) CKD (chronic kidney disease), stage IV Status: Chronic (3) Dyslipidemia Status: Chronic (4) Gout Status: Chronic (5) HTN (hypertension) Status: Chronic (6) Hypothyroidism Status: Chronic (7) Left atrial thrombus Status: Chronic (8) Osteoporosis Status: Chronic (9) Rheumatic heart disease Status: Chronic (10) Spinal stenosis Status: Chronic Surgical Problems: (1) H/O aortic valve replacement Permanent Comment: mechanical, 1996 Status: Chronic (2) H/O mitral valve replacement Permanent Comment: mechanical, 1996 Status: Chronic (3) History of hysterectomy Status: Chronic (4) Hx of thyroidectomy Status: Chronic (5) Status post total hip replacement, left Status: Chronic (6) Status post total hip replacement, right Status: Chronic Family History Stroke MOTHER Social History Smoking Status: Current Every Day Smoker Alcohol Use: 1 glass wine/night Immunizations History of Influenza Vaccine: Yes Influenza Vaccine Date: Jun 25, 2016 History of Pneumococcal: Yes Pneumococcal Date: Apr 04, 2015 Allergies Coded Allergies: No Known Allergies (Unverified , 03/27/12) Home Medications Scheduled Allopurinol (Zyloprim), 100 MG PO DAILY Aspirin Enteric Coated (Ecotrin Or Generic), 81 MG PO DAILY Calcitriol (Rocaltrol Cap), 1 CAP PO 2XWK Cyanocobalamin (Vitamin B-12 1000 Mcg), 1 TAB PO DAILY Furosemide (Lasix), 40 MG PO DAILY Gabapentin (Neurontin), 100 MG PO DAILY Hydralazine Hcl (Apresoline), 1 TAB PO TID Isosorbide Mononitrate Ext Rel (Imdur Ext Rel), 1 TAB PO QAM Levothyroxine Sodium (Synthroid), 25 MCG PO DAILY Metoprolol Tartrate (Lopressor), 50 MG PO DAILY Metoprolol Tartrate (Lopressor), 25 MG PO HS Ranitidine (Zantac), 300 MG PO HS Spironolactone (Aldactone), 12.5 MG PO DAILY Warfarin Sod (Jantoven), 3.75 MG PO 6XWK Warfarin Sod (Coumadin), 5 MG PO WK Scheduled PRN Montelukast Sodium (Montelukast Sodium), 1 TAB PO DAILY PRN for allergies Review of Systems ROS per HPI, all other systems reviewed and negative Physical Exam Vital Signs Date Time Temp Pulse Resp B/P (MAP) Pulse Ox O2 Delivery O2 Flow Rate FiO2 06/09/17 16:48 72 114/71 (85) 95 Nasal Cannula 2.0 Humidified Oxygen 06/09/17 16:00 96 Nasal Cannula 2.0 Humidified Oxygen 06/09/17 15:44 37.0 74 20 178/55 (96) 87 Room Air 06/09/17 15:01 129/74 06/09/17 14:46 123/74 06/09/17 14:38 36.4 72 19 109/59 97 Nasal Cannula 2.0 06/09/17 14:36 72 22 97 06/09/17 14:31 120/66 06/09/17 14:16 116/66 06/09/17 14:06 70 16 97 06/09/17 14:01 109/59 06/09/17 13:46 110/73 06/09/17 13:36 81 16 99 06/09/17 13:31 117/80 06/09/17 13:16 126/69 06/09/17 13:06 69 19 98 06/09/17 13:01 134/63 06/09/17 12:55 80 19 97 06/09/17 12:46 130/62 06/09/17 12:43 91 Room Air 06/09/17 12:43 93 Nasal Cannula 2.0 06/09/17 12:41 105/52 06/09/17 12:40 96 Room Air 06/09/17 12:36 130/74 06/09/17 12:34 141/64 06/09/17 12:25 81 22 06/09/17 12:12 76 06/09/17 12:02 98 Room Air 06/09/17 12:00 36.4 79 18 147/68 98 Room Air General Appearance: no apparent distress Head: normocephalic Eyes: normal inspection, sclerae normal ENT: hearing grossly normal Neck: supple, no JVD Respiratory/Chest: lungs clear, normal breath sounds, no respiratory distress Cardiovascular: no edema, normal peripheral pulses, + irregularly irregular ( rate controlled) Abdomen/GI: normal bowel sounds, non tender, soft Extremities/Musculoskelatal: normal inspection, no calf tenderness Neurologic/Psych: no motor/sensory deficits, alert, normal mood/affect, oriented x 3 Skin: normal color, warm/dry Diagnostics Laboratory Results Results Past 24 Hours Test 06/09/17 12:12 06/09/17 12:37 06/09/17 18:00 06/09/17 18:12 Range/Units White Blood Count 5.99 4.8-10.8 K/uL Red Blood Count 2.71 4.2-5.4 M/uL Hemoglobin 9.2 12.0-16.0 g/dL Hematocrit 28.6 37-47 % Mean Corpuscular Volume 105.5 80-100 fL Mean Corpuscular Hemoglobin 33.9 25-34 pg Mean Corpuscular Hemoglobin Concent 32.2 32-36 g/dl Platelet Count 270 130-400 K/uL Mean Platelet Volume 9.7 7.4-10.4 fL Neutrophils (%) (Auto) 70.1 % Lymphocytes (%) (Auto) 16.5 % Monocytes (%) (Auto) 9.8 % Eosinophils (%) (Auto) 2.7 % Basophils (%) (Auto) 0.7 % Neutrophils # (Auto) 4.20 1.4-6.5 K/uL Lymphocytes # (Auto) 0.99 1.2-3.4 K/uL Monocytes # (Auto) 0.59 0.11-0.59 K/uL Eosinophils # (Auto) 0.16 0-0.5 K/uL Basophils # (Auto) 0.04 0-0.2 K/uL RDW Standard Deviation 62.1 36.4-46.3 fL RDW Coefficient of Variation 16.0 11.5-14.5 % Immature Granulocyte % (Auto) 0.2 % Immature Granulocyte # (Auto) 0.01 0.00-0.02 K/uL Absolute Reticulocyte Count 0.06 0.02-0.10 10^6/uL Percent Reticulocyte Count 2.2 0.5-2.0 % Prothrombin Time 27.4 9.0-12.0 SECONDS Prothromb Time International Ratio 2.5 0.9-1.1 Activated Partial Thromboplast Time 36.4 21.0-31.0 SECONDS Partial Thromboplastin Ratio 1.4 Sodium Level 138 136-145 mmol/L Potassium Level 3.8 3.5-5.1 mmol/L Chloride Level 102 98-107 mmol/L Carbon Dioxide Level 26 21-32 mmol/L Anion Gap 10.0 3-11 mmol/L Blood Urea Nitrogen 68 7-18 mg/dl Creatinine 2.70 0.60-1.20 mg/dl Estimated GFR () 19.1 Estimated GFR (Non- 16.5 BUN/Creatinine Ratio 25.1 10-20 Random Glucose 90 70-99 mg/dl Calcium Level 9.1 8.5-10.1 mg/dl Iron Level 22 35-150 mcg/dl Total Iron Binding Capacity 421 250-450 mcg/dl Transferrin 327 200-360 mg/dl Transferrin % Saturation 5 15-50 % Ferritin 30.5 8.0-388.0 ng/ml Total Bilirubin 0.4 0.2-1 mg/dl Direct Bilirubin 0.1 0-0.2 mg/dl Aspartate Amino Transf (AST/SGOT) 28 15-37 U/L Alanine Aminotransferase (ALT/SGPT) 13 12-78 U/L Alkaline Phosphatase 62 45-117 U/L Pro-B-Type Natriuretic Peptide 7242 0-1800 pg/ml Total Protein 7.8 6.4-8.2 gm/dl Albumin 3.7 3.4-5.0 gm/dl Lipase 193 73-393 U/L Bedside Troponin I 0.040 0-0.045 ng/ml Creatine Kinase MB Ratio 0-3.0 Creatine Kinase MB 1.5 0.5-3.6 ng/ml Troponin I 0.047 0-0.045 ng/ml Vitamin B12 Level 1273 211-911 pg/mL Folate 14.89 >5.38 ng/mL Diagnostic Radiology CXR IMPRESSION: 1. Interstitial thickening suggestive of mild pulmonary edema. 2. Moderate cardiomegaly. Impression Assessment and Plan CHEST PAIN - admit to tele - patient presenting with exertional substernal / epigastric pain with associated BL arm pain and shortness of breath x 4 days; in the ED, initial troponin negative, EKG shows new T-wave inversions laterally - patient given nitro in the ED without improvement in pain, then was given Fentanyl with relief - 03/19/17 - negative dobutamine stress test - continue to cycle cardiac enzymes - continue ASA, nitrate, and beta ida; will start high intensity statin - cardio consult, input appreciated - consider GI etiology given location of the pain GUAIAC POSITIVE STOOLS, ANEMIA - noted in the ED with brown stool - no reports of BRBPR or dark tarry stools - noted hgb 11.1 03/2017 -> 9.2 today - check iron studies - GI consult, input appreciated - no signs of gross GI bleeding and with history of mechanical aortic and mitral valves and left atrial thrombosis - benefit outweighs risk - therefore, will continue Coumadin for now HX MECHANICAL AORTIC AND MITRAL VALVE, LEFT ATRIAL THROMBUS - had left atrial thrombus 02/2017 in the setting of subtherapeutic INR - INR 2.5 today, continue Coumadin DIASTOLIC DYSFUNCTION - echo 02/2017 - EF 60-64%, grade I diastolic dysfunction - continue home furosemide and spironolactone - CXR being read as mild CHF however lungs clear on exam, no edema noted HTN - BP controlled, continue hydralazine, metoprolol, and isosorbide CKD STAGE III - baseline creat runs in the mid 2's - creat noted to be 2.7 today - continue to monitor, avoid nephrotoxic agents when able HYPOTHYROIDISM - continue levothyroxine GOUT - continue allopurinol Psoriasis-started clobetasol BID x max two weeks to heal plaques on extensor surfaces. Of note, uncontrolled psoriasis increases inflammation making CAD more likely. DVT PROPHYLAXIS - on Coumadin with therapeutic INR CODE STATUS - Patient is a full code as per my discussion with her. DISPO - The patient will be placed as observation status for now until further work up is complete. ADDENDUM: I have seen and evaluated the patient and agree with the assessment and plan as stated above. Pt was having persistent chest pressure in the epigastric region. This was after dinner and she was reporting feeling gaseous so she was given a GI cocktail. This made her belch excessively with some relief, but pain still was present. She was offered morphine and declined and then shortly afterward she fell asleep. Cont to trend enzymes and plan as above. [place], DO Level of Care Telemetry Advanced Directives Existing Living Will: Yes Existing Power of Radio Station Operator: Yes Resuscitation Status FULL RESUSCITATION VTE Prophylaxis VTE Risk Assessment Done? Y/N: Yes Risk Level: Moderate Given or contraindicated: Warfarin (Coumadin)
[2017-06-09] MEDS ORDERED: MoRPHine SULFATE 2 MG/ML CARP IV PRN (20:15)
[2017-06-09] MEDS ORDERED: ALUMINUM/MAGNESIUM SUSP 18 ML, LIDOCAINE HCL 2% VISCOUS SOLN 6 ML, BARCODE IDENTIFIER 1 EA PO SCH ×2 (20:30)
[2017-06-09] MEDS ORDERED: METOPROLOL TARTRATE 25 MG TAB PO SCH (21:00)
[2017-06-09] MEDS: CLOBETASOL PROPIONATE 0.05% OINT 15 GM TUBE EXT SCH (21:48)
[2017-06-09] MEDS: FERROUS SULFATE 325 MG TAB PO SCH (21:49)
[2017-06-09] MEDS: ATORVASTATIN 40 MG TAB PO SCH (21:49)
[2017-06-09] MEDS: RANITIDINE HCL 150 MG TAB PO SCH (21:49)
[2017-06-10] VITALS (7 sets, daily range): BP systolic 103–168; BP diastolic 53–74; PULSE 72–86; TEMP 36.6–36.7; O2SAT 85–98
[2017-06-10] MEDS ORDERED: TRAMADOL HCL 50 MG TAB PO PRN (01:00)
[2017-06-10] MEDS ORDERED: HYDROmorphone INJ 0.5 MG/0.5 ML SYR IV PRN (01:00)
[2017-06-10] MEDS ORDERED: ALBUT/IPRATROP 3MG/0.5MG NEB 3 ML VIAL INH PRN (03:00)
[2017-06-10] MEDS ORDERED: ALBUT/IPRATROP 3MG/0.5MG NEB 3 ML VIAL INH STA (03:01)
[2017-06-10] MEDS ORDERED: FUROSEMIDE INJ 60 MG in SYRINGE 0 ML IV STA (03:01)
[2017-06-10] MEDS ORDERED: LORAZEPAM 0.5 MG TAB PO STA (03:02)
[2017-06-10 04:22] LABS: HEMATOCRIT 25.7 % (37-47); MEAN CELL VOLUME 107.5 fL (80-100); MEAN CORPUSCULAR HEMOGLOBIN 33.9 pg (25-34); MEAN CORPUSCULAR HGB CONC 31.5 g/dl (32-36); MEAN PLATELET VOLUME 9.4 fL (7.4-10.4); PLATELET COUNT 229 K/uL (130-400); RED BLOOD COUNT 2.39 M/uL (4.2-5.4)
[2017-06-10 04:36] LABS: INR 2.5 (0.9-1.1); PROTHROMBIN TIME (PATIENT) 27.4 SECONDS (9.0-12.0)
[2017-06-10 04:41] LABS: BUN/CREATININE RATIO 26.4 (10-20); CALCIUM 8.5 mg/dl (8.5-10.1); CREATININE 2.8 mg/dl (0.60-1.20); POTASSIUM 4.2 mmol/L (3.5-5.1)
[2017-06-10 04:44] LABS: CHOLESTEROL/HDL RATIO 1.5
[2017-06-10] MEDS: LEVOTHYROXINE 25 MCG TAB PO SCH (06:13)
[2017-06-10] MEDS: GABAPENTIN 100 MG CAP PO SCH (07:47)
[2017-06-10] MEDS: FERROUS SULFATE 325 MG TAB PO SCH ×2 (07:48→16:24)
[2017-06-10] MEDS: ASPIRIN 81 MG ECTAB PO SCH (07:48)
[2017-06-10] MEDS: ALLOPURINOL 100 MG TAB PO SCH (07:49)
[2017-06-10] MEDS: CLOBETASOL PROPIONATE 0.05% OINT 15 GM TUBE EXT SCH ×2 (07:49→19:50)
[2017-06-10] MEDS: CYANOCOBALAMIN 500 MCG TAB (VIT B-12) PO SCH (07:50)
[2017-06-10] MEDS ORDERED: SPIRONOLACTONE 25 MG TAB PO SCH (09:00)
[2017-06-10] MEDS ORDERED: ISOSORBIDE MONONITRATE 30 MG TABCR PO SCH (09:00)
[2017-06-10] MEDS ORDERED: FUROSEMIDE 40 MG TAB PO SCH (09:00)
[2017-06-10] MEDS ORDERED: METOPROLOL TARTRATE 50 MG TAB PO SCH (09:00)
[2017-06-10 09:56] LABS: ESTIMATED AVERAGE GLUCOSE 97 mg/dl; HA1C FLAG Normal (Normal)
--- NOTE | 2017-06-10 10:24 | Gastrointestinal Consultation ---
Gastrointestinal Consultation Date of Consultation: Jun 10, 2017 Attending Physician: Wojciech Consulting Physician: Augustus Reason for Consultation: anemia, heme + stools History of Present Illness Patient is a 76 year old female w/ history of aortic and mitral valve replaces and afib on Coumadin with other comorbidities listed below who presented through the ED for evaluation of chest pain and SOB. Pt was seen and evaluated, chart reviewed. Family is at bedside. GI was consulted for anemia and heme + stools. Pt tells me she developed acute chest pain associated with activity about four days ago. There was associated SOB and worsening pain with activity. There was radiation of pain up her jaw and down both arms. No associated nausea , vomiting. + BNP and + troponin. Evidence of pulmonary edema on chest xr. PT denies any GI concerns or complaints on a daily basis. She tells me she typically moves his bowels 1-2 times daily, without any bright red blood or melena. She does not have any upper GI symptoms, no nausea, regurgitation, heart burn or vomiting. She has never had EGD/Colonoscopy before. No family history of GI malignancy. H&H 8.10/16 MCV 107 Iron 21 Transferrin 327 Ferritin 30 Past Medical/Surgical History anemia, chest pain, SOB, heme + stools Past Medical History: CKD-IV, gout, dyslipidemia, HTN, hypothyroidism, afib, spinal stenosis, osteoporosis, rheumatic heard disease Past Surgical History: aortic valve replacement, mitral valve replacement, hysterectomy, thyroidectomy , bilateral total hip replacement Family History Stroke MOTHER Social History Smoking Status: Current Every Day Smoker Housing Status: lives with family Allergies Coded Allergies: No Known Allergies (Unverified , 03/27/12) Current Medications Home Meds and Scripts Medications Dose Route/Sig Max Daily Dose Days Date Category Dose Instructions Coumadin (Warfarin Sod) 2.5 Mg Tab 5 Mg PO WK 30 06/09/17 Reported Mondays Jantoven (Warfarin Sodium) 2.5 Mg Tab 3.75 Mg PO 6XWK 06/09/17 Reported all days except Friday Zantac (Ranitidine HCl) 300 Mg Tab 300 Mg PO HS 03/17/17 Reported Aldactone (Spironolactone) 25 Mg Tab 12.5 Mg PO DAILY 90 03/17/17 Reported Apresoline (Hydralazine Hcl) 50 Mg Tab 1 Tab PO TID 30 03/17/17 Reported Montelukast Sodium 10 Mg Tab 1 Tab PO DAILY PRN 30 03/17/17 Reported Neurontin (Gabapentin) 100 Mg Cap 100 Mg PO DAILY 03/17/17 Reported Vitamin B-12 1000 Mcg (Cyanocobalamin) 1,000 Mcg Tab 1 Tab PO DAILY 30 03/17/17 Reported Rocaltrol Cap (Calcitriol) 0.25 Mcg Cap 1 Cap PO 2XWK 30 03/17/17 Reported mon, thurs Imdur Ext Rel (Isosorbide Mononitrate) 30 Mg Tabcr 1 Tab PO QAM 03/17/17 Reported Lopressor (Metoprolol Tartrate) 50 Mg Tab 25 Mg PO HS 03/17/17 Reported Lasix (Furosemide) 20 Mg Tab 40 Mg PO DAILY 03/30/12 Reported Synthroid (Levothyroxine Sodium) 25 Mcg Tab 25 Mcg PO DAILY 03/30/12 Reported Zyloprim (Allopurinol) 100 Mg Tab 100 Mg PO DAILY 03/30/12 Reported Lopressor (Metoprolol Tartrate) 50 Mg Tab 50 Mg PO DAILY 03/30/12 Reported Ecotrin Or Generic (Aspirin) 81 Mg Tab 81 Mg PO DAILY 03/30/12 Reported Review of Systems Constitutional: No fever, No chills Respiratory: + shortness of breath Cardiac: + chest pain Abdomen: No pain, No nausea, No vomiting, No diarrhea, No constipation, No GI bleeding Physical Exam Date Time Temp Pulse Resp B/P (MAP) Pulse Ox O2 Delivery O2 Flow Rate FiO2 06/10/17 08:16 36.6 86 16 168/74 (105) 96 06/10/17 08:00 Nasal Cannula 2.0 06/10/17 04:00 Nasal Cannula 2.0 06/10/17 03:23 72 20 96 Nasal Cannula 2.0 06/10/17 03:22 36.6 73 18 156/65 (95) 96 Nasal Cannula 2.0 06/10/17 00:24 80 18 128/66 (86) 96 Nasal Cannula 2.0 06/09/17 23:59 Nasal Cannula 2.0 06/09/17 23:58 36.9 75 17 122/61 (81) 95 Nasal Cannula 2.0 06/09/17 21:51 75 129/61 (83) 06/09/17 20:00 91 Room Air Humidified Oxygen 06/09/17 19:55 36.6 78 18 134/54 (80) 93 Room Air 06/09/17 16:48 72 114/71 (85) 95 Nasal Cannula 2.0 Humidified Oxygen 06/09/17 16:00 96 Nasal Cannula 2.0 Humidified Oxygen 06/09/17 15:44 37.0 74 20 178/55 (96) 87 Room Air 06/09/17 15:01 129/74 06/09/17 14:46 123/74 06/09/17 14:38 36.4 72 19 109/59 97 Nasal Cannula 2.0 06/09/17 14:36 72 22 97 06/09/17 14:31 120/66 06/09/17 14:16 116/66 06/09/17 14:06 70 16 97 06/09/17 14:01 109/59 06/09/17 13:46 110/73 06/09/17 13:36 81 16 99 06/09/17 13:31 117/80 06/09/17 13:16 126/69 06/09/17 13:06 69 19 98 06/09/17 13:01 134/63 06/09/17 12:55 80 19 97 06/09/17 12:46 130/62 06/09/17 12:43 91 Room Air 06/09/17 12:43 93 Nasal Cannula 2.0 06/09/17 12:41 105/52 06/09/17 12:40 96 Room Air 06/09/17 12:36 130/74 06/09/17 12:34 141/64 06/09/17 12:25 81 22 06/09/17 12:12 76 06/09/17 12:02 98 Room Air 06/09/17 12:00 36.4 79 18 147/68 98 Room Air General Appearance: no apparent distress (sitting upright in bed, family at bedside) Eyes: PERRL ENT: hearing grossly normal Respiratory/Chest: lungs clear, no respiratory distress, no accessory muscle use Cardiovascular: + irregularly irregular Abdomen: normal bowel sounds, non tender, soft, no organomegaly, no pulsatile mass Neurologic/Psych: alert, normal mood/affect, oriented x 3 Skin: normal color, warm/dry Laboratory Results Last 24 Hours Test 06/09/17 12:12 06/09/17 12:37 06/09/17 18:00 06/09/17 18:12 White Blood Count 5.99 K/uL Red Blood Count 2.71 M/uL Hemoglobin 9.2 g/dL Hematocrit 28.6 % Mean Corpuscular Volume 105.5 fL Mean Corpuscular Hemoglobin 33.9 pg Mean Corpuscular Hemoglobin Concent 32.2 g/dl Platelet Count 270 K/uL Mean Platelet Volume 9.7 fL Neutrophils (%) (Auto) 70.1 % Lymphocytes (%) (Auto) 16.5 % Monocytes (%) (Auto) 9.8 % Eosinophils (%) (Auto) 2.7 % Basophils (%) (Auto) 0.7 % Neutrophils # (Auto) 4.20 K/uL Lymphocytes # (Auto) 0.99 K/uL Monocytes # (Auto) 0.59 K/uL Eosinophils # (Auto) 0.16 K/uL Basophils # (Auto) 0.04 K/uL RDW Standard Deviation 62.1 fL RDW Coefficient of Variation 16.0 % Immature Granulocyte % (Auto) 0.2 % Immature Granulocyte # (Auto) 0.01 K/uL Absolute Reticulocyte Count 0.06 10^6/uL Percent Reticulocyte Count 2.2 % Prothrombin Time 27.4 SECONDS Prothromb Time International Ratio 2.5 Activated Partial Thromboplast Time 36.4 SECONDS Partial Thromboplastin Ratio 1.4 Sodium Level 138 mmol/L Potassium Level 3.8 mmol/L Chloride Level 102 mmol/L Carbon Dioxide Level 26 mmol/L Anion Gap 10.0 mmol/L Blood Urea Nitrogen 68 mg/dl Creatinine 2.70 mg/dl Estimated GFR () 19.1 Estimated GFR (Non- 16.5 BUN/Creatinine Ratio 25.1 Random Glucose 90 mg/dl Calcium Level 9.1 mg/dl Iron Level 22 mcg/dl Total Iron Binding Capacity 421 mcg/dl Transferrin 327 mg/dl Transferrin % Saturation 5 % Ferritin 30.5 ng/ml Total Bilirubin 0.4 mg/dl Direct Bilirubin 0.1 mg/dl Aspartate Amino Transf (AST/SGOT) 28 U/L Alanine Aminotransferase (ALT/SGPT) 13 U/L Alkaline Phosphatase 62 U/L Pro-B-Type Natriuretic Peptide 7242 pg/ml Total Protein 7.8 gm/dl Albumin 3.7 gm/dl Lipase 193 U/L Bedside Troponin I 0.040 ng/ml Creatine Kinase MB Ratio Creatine Kinase MB 1.5 ng/ml Troponin I 0.047 ng/ml Vitamin B12 Level 1273 pg/mL Folate 14.89 ng/mL Test 06/10/17 00:00 06/10/17 00:33 06/10/17 04:00 Creatine Kinase MB Ratio Creatine Kinase MB 1.5 ng/ml Troponin I 0.044 ng/ml White Blood Count 4.90 K/uL Red Blood Count 2.39 M/uL Hemoglobin 8.1 g/dL Hematocrit 25.7 % Mean Corpuscular Volume 107.5 fL Mean Corpuscular Hemoglobin 33.9 pg Mean Corpuscular Hemoglobin Concent 31.5 g/dl RDW Standard Deviation 62.6 fL RDW Coefficient of Variation 15.9 % Platelet Count 229 K/uL Mean Platelet Volume 9.4 fL Prothrombin Time 27.4 SECONDS Prothromb Time International Ratio 2.5 Sodium Level 140 mmol/L Potassium Level 4.2 mmol/L Chloride Level 105 mmol/L Carbon Dioxide Level 30 mmol/L Anion Gap 5.0 mmol/L Blood Urea Nitrogen 74 mg/dl Creatinine 2.80 mg/dl Est Creatinine Clear Calc Drug Dose 13.5 ml/min Estimated GFR () 18.3 Estimated GFR (Non- 15.7 BUN/Creatinine Ratio 26.4 Random Glucose 90 mg/dl Estimated Average Glucose 97 mg/dl Hemoglobin A1c 5.0 % Calcium Level 8.5 mg/dl Triglycerides Level 63 mg/dl Cholesterol Level 150 mg/dl HDL Cholesterol 97 mg/dl LDL Cholesterol, Calculated 40 mg/dl VLDL Cholesterol, Calculated 13 mg/dl Cholesterol/HDL Ratio 1.5 Impression Patient is a 76 year old female admitted with chest pain and SOB, cardiology follow due to cardiac history of afib on Coumadin s/p aortic valve and mitral valve replacement. GI was consulted for anemia and heme + stools. MCV elevated at 108 w/ normal B12 and folate. Tells me she has one glass of wine nightly before bed. Iron is 22. Heme + stools, no signs of sana GI bleeding. Has never had EGD/Colonoscopy before. Plan - Monitor stools - Trend H&H - Transfuse as needed - PPI daily - EGD - heme + stools - FE 22 - she is agreeable to EGD but would like to discuss colonoscopy with her family - will arrange EGD/Colonoscopy during admission if possible and clear from cardiac standpoint - Consider hematologic evaluation for macrocytic anemia, with normal B12 and folate Discussed with cardiology - NPO after midnight for EGD 06/11/17 GI to follow, please call with any questions or concerns. ATTESTATION: I have performed a history and physical examination of this patient and reviewed the electronic record. Specifically, on physical examination there is no abdominal tenderness. I discussed workup including risks and benefits with Dr. Larson of cardiology. I have discussed the case with CLYDE Bates. The above note reflects my findings, conclusions, and recommendations. Hebert Coffman MD
--- NOTE | 2017-06-10 11:18 | Cardiology Consultation ---
Cardiology Consultation Date of Consultation: Jun 10, 2017 Requesting Physician: Salud Attending [employer] Laborer: Neo (Jorge Myers PA-C) History of Present Illness Mrs. Goodson is a 76 year old female who is being seen at the request of Ms. Melani TANG and Dr. Hannah Boles DO. Reason for consultation is chest pain. Mrs. Goodson notes onset of symptoms Friday night after eating ribs. She notes just not feeling right thereafter, complaints of increased shortness of breath, wheezing, and fatigue. She notes feeling in lump in her substernal chest/ epigastrium as well as pain down both of her arms. She has experienced symptoms reminiscent of the above in the past (February 2017) with chest x-ray at that time demonstrating congestive heart failure and a small left pleural effusion for which furosemide and spironolactone were doubled x3 days with improvement so she decided to increase furosemide on her own over the weekend, unfortunately without benefit. Friday she called her PCP to arrange outpatient evaluation and was referred to the ER. In the ER she was evaluated by Dr. Nj. She was given sublingual nitroglycerin without improvement in her presenting symptoms. Thereafter she was given 4 mg IV Zofran followed by 50 mcg of Fentanyl , also without improvement. Last night around 03:00 AM she was given 60 mg IV furosemide, DuoNeb treatment and lorazepam with significant improvement, prompt complete resolution, of her symptoms. Cardiac enzymes are not indicative of an acute coronary event. EKG's reveal mildly worsening ST-T wave changes anterolaterally when compared to February 2017. Dobutamine stress echocardiography on March 19, 2017 was nonischemic at 129% age- predicted maximum heart rate. Notable findings this admission also include a CBC with considerable anemia, elevated MCV, normal B12 and folate, iron deficiency, heme positive stools. She as never undergone EGD or colonoscopy. Patient with stage IV CKD followed by Dr. Burgess. Creatinine was 2.7 mg/dL on presentation, 2.8 mg/dL this morning. She is noncompliant with prescribed oxygen and continues to smoke cigarettes. (Jorge Myers PA-C) Past Medical/Surgical History Problem List: Rheumatic valvular heart disease. S/P aortic and mitral valve replacement April 01, 1997 with 27 mm Rehman Medtr[employer] mitral valve mechanical prosthesis and a 23 mm Carbomedic aortic valve replacement. INR Chronic Coumadin anticoagulation. INR goal 2.5 to 3.5 Chronic atrial fibrillation. Chronic obstructive lung disease with chronic tobacco use Hypertension. Hyperlipidemia. History of statin intolerance Stage IV chronic renal insufficiency Hypothyroidism Gouty arthropathy Lumbar disc disease Spinal stenosis Osteoporosis Hip replacements Cholelithiasis Neuropathy Allergic rhinitis Persistent insomnia Right hip replacement Thyroid surgery Total hysterectomy (Jorge Myers PA-C) Family History Family History: Mother had a CVA, history of dementia. Father with COPD. (Jorge Myers PA-C) Stroke MOTHER (Vishnu Larson D.O.) Social History Social History: Smoker. Currently 1 pack ever 2-3 days. Occasional glass of wine. . with dementia. Smoking Status: Current Every Day Smoker Alcohol Use: 1 glass wine/night (Jorge Myers PA-C) Review Of Systems Complete Review of Systems: See above. Otherwise negative or noncontributory. (Jorge Myers PA-C) Allergies Coded Allergies: No Known Allergies (Unverified , 03/27/12) Medications Reported Home Medications Medications Dose Route/Sig Max Daily Dose Days Date Category Dose Instructions Coumadin (Warfarin Sod) 2.5 Mg Tab 5 Mg PO WK 30 06/09/17 Reported Mondays Jantoven (Warfarin Sodium) 2.5 Mg Tab 3.75 Mg PO 6XWK 06/09/17 Reported all days except Friday Zantac (Ranitidine HCl) 300 Mg Tab 300 Mg PO HS 03/17/17 Reported Aldactone (Spironolactone) 25 Mg Tab 12.5 Mg PO DAILY 90 03/17/17 Reported Apresoline (Hydralazine Hcl) 50 Mg Tab 1 Tab PO TID 30 03/17/17 Reported Montelukast Sodium 10 Mg Tab 1 Tab PO DAILY PRN 30 03/17/17 Reported Neurontin (Gabapentin) 100 Mg Cap 100 Mg PO DAILY 03/17/17 Reported Vitamin B-12 1000 Mcg (Cyanocobalamin) 1,000 Mcg Tab 1 Tab PO DAILY 30 03/17/17 Reported Rocaltrol Cap (Calcitriol) 0.25 Mcg Cap 1 Cap PO 2XWK 30 03/17/17 Reported mon, urs Imdur Ext Rel (Isosorbide Mononitrate) 30 Mg Tabcr 1 Tab PO QAM 03/17/17 Reported Lopressor (Metoprolol Tartrate) 50 Mg Tab 25 Mg PO HS 03/17/17 Reported Lasix (Furosemide) 20 Mg Tab 40 Mg PO DAILY 03/30/12 Reported Synthroid (Levothyroxine Sodium) 25 Mcg Tab 25 Mcg PO DAILY 03/30/12 Reported Zyloprim (Allopurinol) 100 Mg Tab 100 Mg PO DAILY 03/30/12 Reported Lopressor (Metoprolol Tartrate) 50 Mg Tab 50 Mg PO DAILY 03/30/12 Reported Ecotrin Or Generic (Aspirin) 81 Mg Tab 81 Mg PO DAILY 03/30/12 Reported (Jorge Myers PA-C) Physical Exam Vital Signs (Last 8hrs): Last 8 Hrs Date Time Temp Pulse Resp B/P (MAP) Pulse Ox O2 Delivery O2 Flow Rate FiO2 06/10/17 08:16 36.6 86 16 168/74 (105) 96 06/10/17 08:00 Nasal Cannula 2.0 06/10/17 04:00 Nasal Cannula 2.0 06/10/17 03:23 72 20 96 Nasal Cannula 2.0 06/10/17 03:22 36.6 73 18 156/65 (95) 96 Nasal Cannula 2.0 General: A&Ox3. NAD. Daughter and at bedside. HEENT: Normocephalic and atraumatic. No overt JVD. PER. EOMI. Sclera pale. Lungs: Diminished breath sounds with faint bibasilar rales. No wheeze. No rhonchi. Cardiovascular: Irregularly irregular in the 70's. Owen mechanical valve sounds in both the aortic and mitral valve positions. Grade II/ systolic ejection murmur. No diastolic murmur. No S3 gallop. Abdomen: Soft, nontender. Extremities: No edema. No clubbing. No cyanosis. Intact distal pulses. Neuro: No focal deficits. Psychiatric: Normal affect. (Jorge Myers PA-C) Data Last 24 Hours Test 06/09/17 12:12 06/09/17 12:37 06/09/17 18:00 06/09/17 18:12 White Blood Count 5.99 K/uL Red Blood Count 2.71 M/uL Hemoglobin 9.2 g/dL Hematocrit 28.6 % Mean Corpuscular Volume 105.5 fL Mean Corpuscular Hemoglobin 33.9 pg Mean Corpuscular Hemoglobin Concent 32.2 g/dl Platelet Count 270 K/uL Mean Platelet Volume 9.7 fL Neutrophils (%) (Auto) 70.1 % Lymphocytes (%) (Auto) 16.5 % Monocytes (%) (Auto) 9.8 % Eosinophils (%) (Auto) 2.7 % Basophils (%) (Auto) 0.7 % Neutrophils # (Auto) 4.20 K/uL Lymphocytes # (Auto) 0.99 K/uL Monocytes # (Auto) 0.59 K/uL Eosinophils # (Auto) 0.16 K/uL Basophils # (Auto) 0.04 K/uL RDW Standard Deviation 62.1 fL RDW Coefficient of Variation 16.0 % Immature Granulocyte % (Auto) 0.2 % Immature Granulocyte # (Auto) 0.01 K/uL Absolute Reticulocyte Count 0.06 10^6/uL Percent Reticulocyte Count 2.2 % Prothrombin Time 27.4 SECONDS Prothromb Time International Ratio 2.5 Activated Partial Thromboplast Time 36.4 SECONDS Partial Thromboplastin Ratio 1.4 Sodium Level 138 mmol/L Potassium Level 3.8 mmol/L Chloride Level 102 mmol/L Carbon Dioxide Level 26 mmol/L Anion Gap 10.0 mmol/L Blood Urea Nitrogen 68 mg/dl Creatinine 2.70 mg/dl Estimated GFR () 19.1 Estimated GFR (Non- 16.5 BUN/Creatinine Ratio 25.1 Random Glucose 90 mg/dl Calcium Level 9.1 mg/dl Iron Level 22 mcg/dl Total Iron Binding Capacity 421 mcg/dl Transferrin 327 mg/dl Transferrin % Saturation 5 % Ferritin 30.5 ng/ml Total Bilirubin 0.4 mg/dl Direct Bilirubin 0.1 mg/dl Aspartate Amino Transf (AST/SGOT) 28 U/L Alanine Aminotransferase (ALT/SGPT) 13 U/L Alkaline Phosphatase 62 U/L Pro-B-Type Natriuretic Peptide 7242 pg/ml Total Protein 7.8 gm/dl Albumin 3.7 gm/dl Lipase 193 U/L Bedside Troponin I 0.040 ng/ml Creatine Kinase MB Ratio Creatine Kinase MB 1.5 ng/ml Troponin I 0.047 ng/ml Vitamin B12 Level 1273 pg/mL Folate 14.89 ng/mL Test 06/10/17 00:00 06/10/17 00:33 06/10/17 04:00 Creatine Kinase MB Ratio Creatine Kinase MB 1.5 ng/ml Troponin I 0.044 ng/ml White Blood Count 4.90 K/uL Red Blood Count 2.39 M/uL Hemoglobin 8.1 g/dL Hematocrit 25.7 % Mean Corpuscular Volume 107.5 fL Mean Corpuscular Hemoglobin 33.9 pg Mean Corpuscular Hemoglobin Concent 31.5 g/dl RDW Standard Deviation 62.6 fL RDW Coefficient of Variation 15.9 % Platelet Count 229 K/uL Mean Platelet Volume 9.4 fL Prothrombin Time 27.4 SECONDS Prothromb Time International Ratio 2.5 Sodium Level 140 mmol/L Potassium Level 4.2 mmol/L Chloride Level 105 mmol/L Carbon Dioxide Level 30 mmol/L Anion Gap 5.0 mmol/L Blood Urea Nitrogen 74 mg/dl Creatinine 2.80 mg/dl Est Creatinine Clear Calc Drug Dose 13.5 ml/min Estimated GFR () 18.3 Estimated GFR (Non- 15.7 BUN/Creatinine Ratio 26.4 Random Glucose 90 mg/dl Estimated Average Glucose 97 mg/dl Hemoglobin A1c 5.0 % Calcium Level 8.5 mg/dl Triglycerides Level 63 mg/dl Cholesterol Level 150 mg/dl HDL Cholesterol 97 mg/dl LDL Cholesterol, Calculated 40 mg/dl VLDL Cholesterol, Calculated 13 mg/dl Cholesterol/HDL Ratio 1.5 Admission EKG dated and timed 09-JUN-2017 @ 12:09:07 revealed the chronic atrial fibrillation with anterolateral ST-T wave abnormality suggestive of ischemia. Telemetry reviewed: Currently atrial fibrillation in the 70's. No significant bradyarrhythmias or pauses. (Jorge Myers PA-C) Assessment & Plan Complex 76 year old admitted with atypical chest pain. History indicative of excessive sodium intake resulting in acute decompensated diastolic congestive heart failure exacerbation leading to anxiety. Symptoms promptly responded to a cocktail of 60 mg IV furosemide, DuoNeb, and Lorazepam overnight. It should be noted that she has experienced similar symptoms in the past (February 2017) that responded to transient titration of furosemide and spironolactone and lead to the March 19, 2017 dobutamine stress testing which was negative for ischemia at 129% age predicted maximum heart rate. RECOMMENDATIONS/PLAN: Reassess need for additional IV diuretic therapy in AM Resting echocardiogram Increase Metoprolol to 25 mg twice a day and Imdur to 60 mg/day for additional blood pressure as well as antianginal benefit. I believe the benefits of EGD and colonoscopy outweigh the risks and recommend proceeding during this hospitalization Continue Chronic Coumadin anticoagulation, RE: mechanical aortic and mitral valve, chronic atrial fibrillation, left atrial thrombus. She is not a NOAC candidate. Tobacco cessation urged Further recommendations pending the above, evaluation by Dr. Larson, and her ongoing hospitalization. (Jorge Myers PA-C) CARDIOLOGY ATTENDING ADDENDUM: The patient was seen and personally examined. Agree with Jorge Myers PA-C's findings and plans as documented above with additions as noted below. Subjective: Patient feels tired. No Shortness of breath or chest heaviness at rest. Exam: Coarse breath sounds, crisp prosthetic heart valve sounds noted Data: EKG with lateral T-wave inversions, but significantly changed compared to February 2017 Impression: As above Plan: Agree with workup for anemia. Patient requires ongoing Coumadin therapy due to mechanical mitral valve aortic valve. Will review echo when available. (Vishnu Larson,Ama.O.)
[2017-06-10] MEDS ORDERED: PERFLUTREN LIPID MICROSPHERE (DEFINITY) IV ONE (13:56)
--- NOTE | 2017-06-10 15:11 | Progress Note ---
Medicine Progress Note Date & Time of Visit: Jun 10, 2017 at 14:44. Subjective Pt was seen and examined Sitting at the edge of the bed with family at bedside Pt said that she feels fine she said that she is no longer to have any chest pain she said that she did not see any blood in her stools denies any chest pain, palpitation, dizziness and sob Objective Last 8 Hrs Date Time Temp Pulse Resp B/P (MAP) Pulse Ox O2 Delivery O2 Flow Rate FiO2 06/10/17 12:06 36.6 77 16 117/53 (74) 98 Nasal Cannula 2.0 06/10/17 12:00 Nasal Cannula 2.0 06/10/17 08:16 36.6 86 16 168/74 (105) 96 06/10/17 08:00 Nasal Cannula 2.0 Physical Exam: General- No acute distress Head- atraumatic Eyes- PERRL, EOMI ENT- oropharynx clear Neck- supple, no JVD Lungs- clear to auscultation Heart- Irregular, +murmur Abdomen- normal bowel sounds, soft Extremities- no calf tenderness Neuro- alert, oriented x 3; PERRL, EOMI Skin- warm & dry Laboratory Results: Last 24 Hours Test 06/09/17 18:00 06/09/17 18:12 06/10/17 00:00 06/10/17 00:33 Creatine Kinase MB Ratio Creatine Kinase MB 1.5 ng/ml 1.5 ng/ml Troponin I 0.047 ng/ml 0.044 ng/ml Vitamin B12 Level 1273 pg/mL Folate 14.89 ng/mL Test 06/10/17 04:00 06/10/17 12:14 White Blood Count 4.90 K/uL Red Blood Count 2.39 M/uL Hemoglobin 8.1 g/dL Hematocrit 25.7 % Mean Corpuscular Volume 107.5 fL Mean Corpuscular Hemoglobin 33.9 pg Mean Corpuscular Hemoglobin Concent 31.5 g/dl RDW Standard Deviation 62.6 fL RDW Coefficient of Variation 15.9 % Platelet Count 229 K/uL Mean Platelet Volume 9.4 fL Prothrombin Time 27.4 SECONDS Prothromb Time International Ratio 2.5 Sodium Level 140 mmol/L Potassium Level 4.2 mmol/L Chloride Level 105 mmol/L Carbon Dioxide Level 30 mmol/L Anion Gap 5.0 mmol/L Blood Urea Nitrogen 74 mg/dl Creatinine 2.80 mg/dl Est Creatinine Clear Calc Drug Dose 13.5 ml/min Estimated GFR () 18.3 Estimated GFR (Non- 15.7 BUN/Creatinine Ratio 26.4 Random Glucose 90 mg/dl Estimated Average Glucose 97 mg/dl Hemoglobin A1c 5.0 % Calcium Level 8.5 mg/dl Triglycerides Level 63 mg/dl Cholesterol Level 150 mg/dl HDL Cholesterol 97 mg/dl LDL Cholesterol, Calculated 40 mg/dl VLDL Cholesterol, Calculated 13 mg/dl Cholesterol/HDL Ratio 1.5 Lactate Dehydrogenase 421 U/L Assessment & Plan CHEST PAIN - Has significant risks factor, need to r/o ACS - 03/19/17 - negative dobutamine stress test - 1st set of troponin slight increase, then troponin trending down - On ASA, nitrate, and beta ida and statin - Cardiology on board - Pain resolved -Echo pending GUAIAC POSITIVE STOOLS, ANEMIA - noted in the ED with brown stool - Pt denies any episodes of bloody stools - noted hgb 11.1 on 03/2017 - Hgb on admission 9.2, dropped to 8.1 today - with history of mechanical aortic and mitral valves and left atrial thrombosis - benefit outweighs risk - - Case discussed with cardiology and recommended to continue coumadin - Case discussed with GI for possible inpatient work up - Pt agreed for inpatient colonoscopy and EGD - Will continue monitor H/H HX MECHANICAL AORTIC AND MITRAL VALVE, LEFT ATRIAL THROMBUS - had left atrial thrombus 02/2017 in the setting of subtherapeutic INR - INR 2.5 - Continue Coumadin DIASTOLIC DYSFUNCTION - echo 02/2017 - EF 60-64%, grade I diastolic dysfunction - Received lasix 60mg IV yesterday - Will monitor closely due to elevate creatine HTN - BP controlled, continue hydralazine, metoprolol, and isosorbide CKD STAGE III - baseline creat runs in the mid 2's - creat noted to be 2.8 today - continue to monitor - avoid nephrotoxic agents HYPOTHYROIDISM - continue levothyroxine GOUT - continue allopurinol Psoriasis On clobetasol BID x max two weeks to heal plaques on extensor surfaces. DVT PROPHYLAXIS - on Coumadin - INR 2.5 CODE STATUS FULL CODE DISPOSITION Change to admit Current Inpatient Medications: Current Inpatient Medications Medications (Trade) Dose Ordered Sig/Shana Route Start Time Stop Time Status Last Admin Dose Admin Acetaminophen (Tylenol Tab) 650 mg Q4H PRN PO 06/09/17 14:30 07/09/17 14:29 Ondansetron HCl (Zofran Inj) 4 mg Q6H PRN IV 06/09/17 14:30 07/09/17 14:29 Nitroglycerin (Nitrostat Tab) 0.4 mg UD PRN SL 06/09/17 14:30 07/09/17 14:29 Miscellaneous (Iv Fluids Completed) 1 ea PRN PRN N/A 06/09/17 14:45 06/09/18 14:44 Allopurinol (Zyloprim Tab) 100 mg DAILY PO 06/10/17 09:00 07/10/17 08:59 06/10/17 07:49 100 MG Aspirin (Ecotrin Tab) 81 mg DAILY PO 06/10/17 09:00 07/10/17 08:59 06/10/17 07:48 81 MG Calcitriol (Rocaltrol Cap) 0.25 mcg MoTh@0900 PO 06/12/17 09:00 07/12/17 08:59 Cyanocobalamin (Vitamin B-12 Tab) 1,000 mcg DAILY PO 06/10/17 09:00 07/10/17 08:59 06/10/17 07:50 1,000 MCG Gabapentin (Neurontin Cap) 100 mg DAILY PO 06/10/17 09:00 07/10/17 08:59 06/10/17 07:47 100 MG Hydralazine HCl (Apresoline Tab) 50 mg TID PO 06/09/17 21:00 07/09/17 20:59 06/10/17 07:48 50 MG Levothyroxine Sodium (Synthroid Tab) 25 mcg DAILYBB PO 06/10/17 06:00 07/10/17 05:59 06/10/17 06:13 25 MCG Warfarin Sodium (Coumadin Tab) 5 mg Mo@1600 PO 06/09/17 16:00 07/09/17 15:59 06/09/17 17:05 5 MG Ranitidine HCl (zANTac TAB) 300 mg HS PO 06/09/17 21:00 07/09/17 20:59 06/09/17 21:49 300 MG Warfarin Sodium (Coumadin Tab) 3.75 mg SuTuWeThFrSa@1600 PO 06/10/17 16:00 07/10/17 15:59 Morphine Sulfate (MoRPHine SULFATE INJ) 2 mg Q4H PRN IV 06/09/17 20:15 06/23/17 20:14 06/09/17 23:57 2 MG Atorvastatin Calcium (Lipitor Tab) 80 mg DAILY@2100 PO 06/09/17 21:00 07/09/17 20:59 06/09/17 21:49 80 MG Clobetasol Propionate (Clobetasol Propionate Oint) 1 appln BID EXT 06/09/17 21:00 06/23/17 20:59 06/10/17 07:49 1 APPLN Ferrous Sulfate (Feosol Tab) 325 mg BIDM PO 06/09/17 21:00 07/09/17 20:59 06/10/17 07:48 325 MG Hydromorphone HCl (Dilaudid Inj) 0.5 mg Q3H PRN IV 06/10/17 01:00 06/24/17 00:59 06/10/17 02:37 0.5 MG Tramadol HCl (Ultram Tab) not relieved by tylenol @ Q6H PRN PO 06/10/17 01:00 07/10/17 00:59 Furosemide (Lasix Tab) 40 mg DAILY PO 06/11/17 09:00 07/10/17 08:59 Spironolactone (Aldactone Tab) 12.5 mg DAILY PO 06/11/17 09:00 07/10/17 08:59 Albuterol/ Ipratropium (Duoneb) 3 ml Q2H PRN INH 06/10/17 03:00 07/10/17 02:59 Isosorbide Mononitrate (Imdur Ext Rel Tab) 60 mg QAM PO 06/11/17 09:00 07/10/17 08:59 Metoprolol Tartrate (Lopressor Tab) 50 mg BID PO 06/10/17 21:00 07/10/17 08:59
[2017-06-10] MEDS: WARFARIN PO SCH (16:23)
--- NOTE | 2017-06-10 16:26 | ECHOCARDIOGRAM REPORT ---
*NOTICE TO RECEIVING LIBERTARIAN AGENCY This information is strictly Confidential and protected under [place] law. [place] law prohibits you from making any further disclosure of this information unless further disclosure is expressly permitted by the written consent of the person to whom it pertains or is authorized by law. A general authorization for the release of medical or other information is not sufficient for this purpose. Hospital accepts no responsibility if the information is made available to any other person, INCLUDING THE PATIENT. Interpretation Summary * Name: ZANDER JACOB Study Date: 06/10/2017 12:47 PM BP: 117/53 mmHg * Patient Location: C.2T\S\S231\S\1 HR: 77 * : 1940 (M/d/yyy) Gender: Female Height: 62 in * Age: 76 yrs Ethnicity: [place] Weight: 121 lb * Ordering Physician: Jorge Myers * Referring Physician: Self, Referred * Performed By: Conchis Berg RDCS * * Reason For Study: Chest pain * BSA: 1.5 m2 * -- Conclusions -- * No regional wall motion abnormalities noted. * There is mild concentric left ventricular hypertrophy. * The LV Ejection Fraction = 60-65%. * Normal prosthetic aortic valve and prosthetic mitral valve function within the scope of transthoracic echocardiography. * There is moderate tricuspid regurgitation. * Doppler findings do not suggest pulmonary hypertension. * The LV diastolic function is abnormal based on left atrial enlargement. Procedure Details * A complete two-dimensional transthoracic echocardiogram was performed (2D, M-mode, Doppler and color flow Doppler). * A contrast injection of Definity was performed to improve assessment of LV function. * Contrast was injected into an intravenous site in the right arm. * One vial of Definity ultrasound contrast was diluted in normal saline to a total volume of 10 ml. A total of '2' ml of solution was administered during imaging. * Lot # [id number] of Definity utilized for procedure. * Expiration date JUL 09. * The attending nurse who injected the contrast agent was Michelle Guzman RN. Left Ventricle * The left ventricle is normal in size. * There is a calcified echodensity on the basal posterior wall below the prosthetic mitral valve, that is consistet with calcified retained chordal structure as reported on the [facility] dated 03/18/17, and is unchanged compared to the images of the prior transthoracic study dated 03/19/17. * There is mild concentric left ventricular hypertrophy. * Left ventricular systolic function is normal. * Ejection Fraction = 60-65%. * The left ventricular wall motion is normal. * No regional wall motion abnormalities noted. Right Ventricle * The right ventricle is normal size. * The right ventricular systolic function is normal as assessed by tricuspid annular plane systolic excursion (TAPSE) (normal >1.5 cm). Atria * The left atrium is severely dilated. * The right atrium is moderately dilated. * There is no evidence of atrial septal defect, but resolution does not allow assessment for a patent foramen ovale. Mitral Valve * Mitral stenosis is absent. * There is a central disc ([employer]-Rehman type) mechanical prosthesis. There is no gross evidence of mitral regurgitaiton, however, assesment is limite by acoustic shadowing from the mechanical mitral valve. Tricuspid Valve * The tricuspid valve is normal. * There is no tricuspid stenosis. * There is moderate tricuspid regurgitation. * Doppler findings do not suggest pulmonary hypertension. Aortic Valve * There is no significant aortic regurgitation. * There is a mechanical aortic valve. * The gradient is normal for this prosthetic aortic valve. Pulmonic Valve * The pulmonary valve is inadequately visualized, but the Doppler data is adequate for interpretation. * There is no pulmonic valvular stenosis. * Mild pulmonic valvular regurgitation. Great Vessels * The aortic root and proximal ascending aorta are normal sized. Pericardium/Pleural * There is no pericardial effusion. Great Vessels * The inferior vena caval is dilated with moderate level of inspiratory collapse , consistent with an intermedicate right atrial pressure of 8 mm Hg. MMode 2D Measurements and Calculations IVSd 0.96 cm LVIDd 3.9 cm LVIDs 2.7 cm LVPWd 1.8 cm IVS/LVPW 0.53 FS 31.7 % EDV(Teich) 67.9 ml ESV(Teich) 26.9 ml EF(Teich) 60.3 % EDV(cubed) 61.6 ml ESV(cubed) 19.6 ml EF(cubed) 68.1 % LV mass(C)d 200.4 grams LV mass(C)dI 129.8 grams/m\S\2 CO(Teich) 3.2 l/min CI(Teich) 2.1 l/min/m\S\2 SV(Teich) 40.9 ml SI(Teich) 26.5 ml/m\S\2 CO(cubed) 3.3 l/min CI(cubed) 2.1 l/min/m\S\2 SV(cubed) 42.0 ml SI(cubed) 27.2 ml/m\S\2 asc Aorta Diam 3.3 cm LVAd ap4 21.3 cm\S\2 LVLd ap4 6.7 cm EDV(MOD-sp4) 57.2 ml LVAs ap4 10.7 cm\S\2 LVLs ap4 5.1 cm ESV(MOD-sp4) 20.1 ml EF(MOD-sp4) 64.9 % LVAd ap2 27.2 cm\S\2 LVLd ap2 6.7 cm EDV(MOD-sp2) 92.7 ml LVAs ap2 15.6 cm\S\2 LVLs ap2 6.5 cm ESV(MOD-sp2) 35.0 ml EF(MOD-sp2) 62.2 % CO(MOD-sp4) 2.9 l/min CI(MOD-sp4) 1.9 l/min/m\S\2 SV(MOD-sp4) 37.1 ml SI(MOD-sp4) 24.0 ml/m\S\2 CO(MOD-sp2) 4.6 l/min CI(MOD-sp2) 3.0 l/min/m\S\2 SV(MOD-sp2) 57.7 ml SI(MOD-sp2) 37.4 ml/m\S\2 Doppler Measurements and Calculations MV V2 max 210.4 cm/sec MV max PG 17.7 mmHg MV V2 mean 94.8 cm/sec MV mean PG 4.8 mmHg MV V2 VTI 37.4 cm Ao V2 max 317.6 cm/sec Ao max PG 40.4 mmHg Ao max PG (full) 26.8 mmHg Ao V2 mean 218.4 cm/sec Ao mean PG 22.1 mmHg Ao V2 VTI 68.8 cm LV V1 max PG 13.5 mmHg LV V1 max 183.9 cm/sec PA V2 max 112.7 cm/sec PA max PG 5.1 mmHg PA acc slope 1634.7 cm/sec\S\2 PA acc time 0.05 sec PI end-d lydia 143.9 cm/sec TR max lydia 265.4 cm/sec PA pr(Accel) 55.2 mmHg
[2017-06-10 16:29] LABS: HEMATOCRIT 25.1 % (37-47); MEAN CELL VOLUME 109.1 fL (80-100); MEAN CORPUSCULAR HEMOGLOBIN 33.9 pg (25-34); MEAN CORPUSCULAR HGB CONC 31.1 g/dl (32-36); PLATELET COUNT 205 K/uL (130-400); WHITE BLOOD COUNT 5.31 K/uL (4.8-10.8)
[2017-06-10] MEDS: ATORVASTATIN 40 MG TAB PO SCH (19:49)
[2017-06-10] MEDS: METOPROLOL TARTRATE 50 MG TAB PO SCH (19:50)
[2017-06-10] MEDS: RANITIDINE HCL 150 MG TAB PO SCH (19:51)
[2017-06-11] VITALS (18 sets, daily range): BP systolic 110–142; BP diastolic 53–72; PULSE 67–79; TEMP 36.4–37.5; O2SAT 16–99
--- NOTE | 2017-06-11 06:15 | Clinical Documentation Query ---
CLINICAL DOCUMENTATION QUERY 76 year old female who presents to the Emergency Room with complaints of constant centralized chest tightness Query #1/3 In your clinical opinion is this patient being managed for: (+ ) Suspected GI Bleed evidenced by worsening anemia and +FOCB stools. ( ) Not Agree ( ) Other explanation of clinical findings (Please Explain) ( ) Unable to determine (Please Define) ( ) Need to Discuss The medical record reflects the following clinical findings, treatment, and risk factors. Clinical Indicators: +FOCB, Hgb 7.8, Hct 25.1, INR 2.5, Treatment: daily CBC's, T&C, GI consult, EGD Risk Factors: Age, Warfarin therapy, Query #2/3 In your clinical opinion is this patient being managed for: ( +) JUAN C on CKD III-IV evidenced by elevated creatinine in setting of worsening anemia ( ) Not Agree ( ) Other explanation of clinical findings (Please Explain) ( ) Unable to determine (Please Define) ( ) Need to Discuss The medical record reflects the following clinical findings, treatment, and risk factors. Clinical Indicators: Hgb 7.8, Hct 25.1, Baseline Creatinine 2.0-2.3, BUN74, Creatinine 2.80, GFR 15.7, Treatment: daily PRP's, careful use of diuretics Risk Factors: Age, home diuretic theraphy Query #3/3 In your clinical opinion is this patient being managed for: ( + ) Acute on chronic diastolic (preserved EF) CHF treated with IV Lasix, telemetry, daily weights, I/O's and cardiology cosult ( ) Not Agree ( ) Other explanation of clinical findings (Please Explain) ( ) Unable to determine (Please Define) ( ) Need to Discuss The medical record reflects the following clinical findings, treatment, and risk factors. Clinical Indicators: ProBNAP 7242, BUN74, Creatinine 2.80, GFR 15.7, CXR showed cardiomegaly and evidence of mild pulmonary edema. Echo showed EF 60-65%, normal prosthetic aortic and mitral valve function, moderate tricuspid valve regurgitation, & LV diastolic function is abnormal bases on left atrial enlargement. Treatment: IV Lasix, cardiology consult Risk Factors: Age, CKD, HTN, JUAN C, Please clarify and document your clinical opinion in the progress notes and discharge summary. Terms such as "probable", "suspected", "likely", "questionable", "possible", or "still to be ruled out" are acceptable. IF IN AGREEMENT, YOU MUST DOCUMENT ABOVE DIAGNOSTIC STATEMENT IN DAILY PROGRESS NOTES AND DISCHARGE SUMMARY. This document is not part of the patient's record. Thank You, Sukumar Huitron, RN [phone]
[2017-06-11] MEDS: LEVOTHYROXINE 25 MCG TAB PO SCH (06:18)
[2017-06-11 07:56] LABS: HEMATOCRIT 24.8 % (37-47); MEAN CELL VOLUME 107.8 fL (80-100); MEAN CORPUSCULAR HGB CONC 30.6 g/dl (32-36); MEAN PLATELET VOLUME 9.5 fL (7.4-10.4); PLATELET COUNT 190 K/uL (130-400); WHITE BLOOD COUNT 4.73 K/uL (4.8-10.8)
[2017-06-11] MEDS: FUROSEMIDE 40 MG TAB PO SCH (08:24)
[2017-06-11] MEDS: ISOSORBIDE MONONITRATE 60 MG TABCR PO SCH (08:25)
[2017-06-11] MEDS: GABAPENTIN 100 MG CAP PO SCH (08:25)
[2017-06-11] MEDS: SPIRONOLACTONE 25 MG TAB PO SCH (08:25)
[2017-06-11] MEDS: ASPIRIN 81 MG ECTAB PO SCH (08:26)
[2017-06-11] MEDS: CYANOCOBALAMIN 500 MCG TAB (VIT B-12) PO SCH (08:26)
[2017-06-11] MEDS: ALLOPURINOL 100 MG TAB PO SCH (08:26)
[2017-06-11] MEDS: CLOBETASOL PROPIONATE 0.05% OINT 15 GM TUBE EXT SCH ×2 (08:27→21:00)
[2017-06-11] MEDS: FERROUS SULFATE 325 MG TAB PO SCH ×2 (08:27→15:52)
[2017-06-11] MEDS: METOPROLOL TARTRATE 50 MG TAB PO SCH ×2 (08:27→21:39)
[2017-06-11 08:33] LABS: BUN/CREATININE RATIO 24.7 (10-20); CALCIUM 8.9 mg/dl (8.5-10.1); CREATININE 2.6 mg/dl (0.60-1.20); POTASSIUM 4.1 mmol/L (3.5-5.1)
--- NOTE | 2017-06-11 08:35 | Progress Note ---
Progress Note Date of Service Jun 11, 2017. Progress Note Pt was seen and evaluated, no acute events overnight. NPO for EGD today. She has no concerns other than she is hungry, wants to eat and go home. Advised to remain NPO if she wishes to get EGD today. She agreed with plan. Lungs CTA, Heart irregular, systolic murmur and mechanical valve sounds, Abd soft, nondistended.
[2017-06-11] MEDS ORDERED: FUROSEMIDE INJ 20 MG in SYRINGE 0 ML IV ONE (10:00)
[2017-06-11] MEDS ORDERED: LIDOCAINE HCL 2% 2 ML VIAL (20MG/ML) ONE (10:02)
[2017-06-11] MEDS ORDERED: PROPOFOL IV EMULSION 10 MG/ML 20 ML VIAL IV ONE (10:02)
--- NOTE | 2017-06-11 10:05 | Cardiology Follow-Up ---
Subjective General Date of Service: Jun 11, 2017. Chief Complaint: SOB Pt evaluation today including: conversation w/ patient, physical exam, chart review, review of studies, review of inpatient medication list History of Present Illness Patient seen and examination just prior to departing for EGD Hgb 7.6. Scheduled to receive 2 U PRBC's today with 20 mg IV furosemide after each unit. No further chest pain. Breathing OK. No palpitations. No orthopnea, PND, or peripheral edema. Data: Telemetry: (Chronic) atrial fibrillation with a controlled ventricular response. No significant bradyarrhythmias or pauses. June 10, 2017 TTE Interpretation Summary ([facility], Dr. Larson): No regional wall motion abnormalities noted. There is mild concentric left ventricular hypertrophy. The LV Ejection Fraction = 60-65%. Normal prosthetic aortic valve and prosthetic mitral valve function within the scope of transthoracic echocardiography. There is moderate tricuspid regurgitation. Doppler findings do not suggest pulmonary hypertension. The LV diastolic function is abnormal based on left atrial enlargement. Dobutamine stress echocardiography on March 19, 2017 was nonischemic at 129% age- predicted maximum heart rate. Allergies Coded Allergies: No Known Allergies (Unverified , 03/27/12) Social History Smoking Status: Current Every Day Smoker Hx Tobacco Use In Past Year?: Yes Hx Alcohol Use - Type And Amou: Yes (1-2 glasses of wine daily) Hx Substance Use - Type And Am: No Physical Exam Vital Signs Last Vital Signs Documentation Date Time Temp Pulse Resp B/P (MAP) Pulse Ox O2 Delivery O2 Flow Rate FiO2 06/11/17 08:00 Nasal Cannula 2.0 06/11/17 07:48 36.8 71 16 118/57 (36) 93 Physical Exam Constitutional: Level of Distress: acutely ill, chronically ill Psychiatric: Mental Status: active & alert Orientation: to time, to place, to person Memory: recent memory normal, remote memory normal Head: normocephalic, atraumatic Neck: pertinent finding (Normal JVP. + HJR) Lungs: Auscultation: no wheezing, no rhonchi, deminished air movement, decreased breath sounds, rales/crackles on the right Cardiovascular: Heart Auscultation: no rubs, II/ REGINA, irregular rate rhythm Peripheral Pulses: Dorsalis Pedis Pulse: normal on the left, normal on the right Abdomen: Bowel Sounds: normal Inspection & Palpation: soft, no masses Extremities: no cyanosis, no edema Neurologic: Cranial Nerves: grossly intact Assessment and Plan Assessment and Plan Admission with chest pain felt to be in association with acute decompensated diastolic congestive heart failure as well as symptomatic anemia. RECOMMENDATIONS/PLAN: For EGD and transfusion of PRBC's as described. Metoprolol and Imdur increased this admission for blood pressure and antianginal benefit. She will likely require additional furosemide/spironolactone 2-3 days per week on discharge. Continue Chronic Coumadin anticoagulation, RE: mechanical aortic and mitral valve, chronic atrial fibrillation, left atrial thrombus. She is not a NOAC candidate (given mechanical aortic , and mitral valves) Tobacco cessation and compliance with supplemental oxygen therapy as prescribed advised. Further recommendations pending the above, evaluation by Dr. Larson, and her ongoing hospitalization. CARDIOLOGY ATTENDING ADDENDUM: The patient was seen and personally examined. Agree with Jorge Myers PA-C's findings and plans as documented above. S: pt without any chest pain or SOB overnight. Echo with normal wall motion. Negative stress test in February,. Imp: as above. Plan: proceed with transfusion and EGD. Laboratory Results Last 24 Hours Test 06/10/17 12:14 06/10/17 16:10 06/11/17 07:38 Lactate Dehydrogenase 421 U/L White Blood Count 5.31 K/uL 4.73 K/uL Red Blood Count 2.30 M/uL 2.30 M/uL Hemoglobin 7.8 g/dL 7.6 g/dL Hematocrit 25.1 % 24.8 % Mean Corpuscular Volume 109.1 fL 107.8 fL Mean Corpuscular Hemoglobin 33.9 pg 33.0 pg Mean Corpuscular Hemoglobin Concent 31.1 g/dl 30.6 g/dl RDW Standard Deviation 63.3 fL 62.6 fL RDW Coefficient of Variation 16.0 % 16.0 % Platelet Count 205 K/uL 190 K/uL Mean Platelet Volume 9.0 fL 9.5 fL Sodium Level 139 mmol/L Potassium Level 4.1 mmol/L Chloride Level 105 mmol/L Carbon Dioxide Level 29 mmol/L Anion Gap 5.0 mmol/L Blood Urea Nitrogen 64 mg/dl Creatinine 2.60 mg/dl Est Creatinine Clear Calc Drug Dose 14.6 ml/min Estimated GFR () 20.0 Estimated GFR (Non- 17.2 BUN/Creatinine Ratio 24.7 Random Glucose 83 mg/dl Calcium Level 8.9 mg/dl
--- NOTE | 2017-06-11 10:30 | History & Physical Bridge Note ---
H&P Re-Evaluation Bridge Note: I have examined the patient, reviewed the History & Physical and in the interval since the performance of the History & Physical I have noted the following changes of clinical significance: No changes noted
--- NOTE | 2017-06-11 10:42 | GI REPORT ---
Procedure Date: 06/11/2017 10:29 AM Procedure: Upper GI endoscopy Indications: Iron deficiency anemia, Heme positive stool Medicines: Monitored Anesthesia Care Complications: No immediate complications. Estimated blood loss: None. Estimated Blood Loss: Estimated blood loss: none. Procedure: Pre-Anesthesia Assessment: - Prior to the procedure, a History and Physical was performed, and patient medications, allergies and sensitivities were reviewed. The patient's tolerance of previous anesthesia was reviewed. - ASA Grade Assessment: III - A patient with severe systemic disease. After obtaining informed consent, the endoscope was passed under direct vision. Throughout the procedure, the patient's blood pressure, pulse, and oxygen saturations were monitored continuously. The Scope was introduced through the mouth, and advanced to the third part of duodenum. The upper GI endoscopy was accomplished with ease. The patient tolerated the procedure well. Findings: The upper third of the esophagus, middle third of the esophagus and lower third of the esophagus were normal. The Z-line was regular and was found 39 cm from the incisors. A small hiatus hernia was present. Diffuse mild inflammation characterized by adherent blood and erythema was found in the entire examined stomach. The examined duodenum was normal. Impression: - Normal upper third of esophagus, middle third of esophagus and lower third of esophagus. - Z-line regular, 39 cm from the incisors. - Small hiatus hernia. - Gastritis. - Normal examined duodenum. - No specimens collected. Recommendation: - [facility] for ongoing care. Hebert Coffman M.D. Hebert Coffman MD 06/11/2017 10:42:02 AM This report has been signed electronically. Note Initiated On: 06/11/2017 10:29 AM I attest to the content of the Intraoperative Record and orders documented therein, exceptions below
--- NOTE | 2017-06-11 11:17 | Anesthesiology Progress Note ---
Anesthesia Post Op Note Date & Time Jun 11, 2017 at 11:16 Vital Signs Pain Intensity: 0 Vital Signs Past 12 Hours Date Time Temp Pulse Resp B/P (MAP) Pulse Ox O2 Delivery O2 Flow Rate FiO2 06/11/17 11:09 96 Nasal Cannula 2 06/11/17 11:08 89 Nasal Cannula 2 06/11/17 10:56 67 20 111/54 (73) 94 Room Air 06/11/17 10:41 68 20 100/50 (67) 93 Room Air 06/11/17 09:59 36.8 71 20 125/61 (82) 97 Nasal Cannula 2 06/11/17 08:00 Nasal Cannula 2.0 06/11/17 07:48 36.8 71 16 118/57 (77) 93 Nasal Cannula 06/11/17 06:48 37.4 74 17 129/65 98 Nasal Cannula 2.0 06/11/17 04:02 37.4 74 17 129/65 (86) 98 Nasal Cannula 2.0 06/11/17 04:00 Room Air 06/11/17 00:11 37.5 75 17 119/53 (75) 95 Nasal Cannula 2.0 06/11/17 00:00 Room Air Notes Mental Status: alert / awake / arousable, participated in evaluation Pt Amnestic to Procedure: Yes Nausea / Vomiting: adequately controlled Pain: adequately controlled Airway Patency, RR, SpO2: stable & adequate BP & HR: stable & adequate Hydration State: stable & adequate Anesthetic Complications: no major complications apparent
--- NOTE | 2017-06-11 15:13 | Cardiology Progress Note ---
Cardiology Progress Note Date of Service Jun 11, 2017. Cardiology Progress Note EGD with findings of gastritis. Will DC aspirin. Continue coumadin. GI help appreciated. DO Chace
[2017-06-11] MEDS: WARFARIN PO SCH (15:52)
--- NOTE | 2017-06-11 18:39 | Progress Note ---
Medicine Progress Note Date & Time of Visit: Jun 11, 2017 at 09:32. Subjective Pt was seen and examined Lying in bed with no distress Pt said that she feels fine denies any bloody stool denies any chest pain, palpitation, dizziness and SOB Objective Last 8 Hrs Date Time Temp Pulse Resp B/P (MAP) Pulse Ox O2 Delivery O2 Flow Rate FiO2 06/11/17 18:01 36.8 67 18 120/66 92 06/11/17 17:01 36.4 77 20 142/70 99 06/11/17 16:20 36.9 79 18 128/71 97 2.0 06/11/17 16:00 36.6 67 18 134/57 97 2.0 06/11/17 16:00 Nasal Cannula 2.0 06/11/17 15:26 37.0 70 21 122/55 (77) 91 Nasal Cannula 2.0 06/11/17 14:40 36.8 70 16 115/68 97 06/11/17 13:40 36.9 68 16 118/72 97 2.0 06/11/17 13:10 37.0 69 16 114/69 96 2.0 06/11/17 12:40 36.7 75 16 114/66 97 2.0 06/11/17 12:25 36.8 73 16 110/62 96 06/11/17 12:13 36.8 70 16 116/65 (82) 95 Room Air 06/11/17 12:10 36.8 72 120/62 16 2.0 06/11/17 12:00 Nasal Cannula 2.0 06/11/17 11:11 64 20 111/54 (73) 98 Room Air 06/11/17 11:09 96 Nasal Cannula 2 06/11/17 11:08 89 Nasal Cannula 2 06/11/17 10:56 67 20 111/54 (73) 94 Room Air 06/11/17 10:41 68 20 100/50 (67) 93 Room Air Physical Exam: General- No acute distress Head- atraumatic Eyes- PERRL, EOMI ENT- oropharynx clear Neck- supple, no JVD Lungs- clear to auscultation Heart- Irregular, +murmur Abdomen- normal bowel sounds, soft Extremities- no calf tenderness Neuro- alert, oriented x 3; PERRL, EOMI Skin- warm & dry Laboratory Results: Last 24 Hours Test 06/11/17 07:38 White Blood Count 4.73 K/uL Red Blood Count 2.30 M/uL Hemoglobin 7.6 g/dL Hematocrit 24.8 % Mean Corpuscular Volume 107.8 fL Mean Corpuscular Hemoglobin 33.0 pg Mean Corpuscular Hemoglobin Concent 30.6 g/dl RDW Standard Deviation 62.6 fL RDW Coefficient of Variation 16.0 % Platelet Count 190 K/uL Mean Platelet Volume 9.5 fL Sodium Level 139 mmol/L Potassium Level 4.1 mmol/L Chloride Level 105 mmol/L Carbon Dioxide Level 29 mmol/L Anion Gap 5.0 mmol/L Blood Urea Nitrogen 64 mg/dl Creatinine 2.60 mg/dl Est Creatinine Clear Calc Drug Dose 14.6 ml/min Estimated GFR () 20.0 Estimated GFR (Non- 17.2 BUN/Creatinine Ratio 24.7 Random Glucose 83 mg/dl Calcium Level 8.9 mg/dl Assessment & Plan CHEST PAIN - Has significant risks factor, need to r/o ACS - 03/19/17 - negative dobutamine stress test - 1st set of troponin slight increase, then troponin trending down - On ASA, nitrate, and beta ida and statin - Cardiology on board - Pain resolved ECHO showed * No regional wall motion abnormalities noted. * There is mild concentric left ventricular hypertrophy. * The LV Ejection Fraction = 60-65%. * Normal prosthetic aortic valve and prosthetic mitral valve function within the scope of transthoracic echocardiography. * There is moderate tricuspid regurgitation. * Doppler findings do not suggest pulmonary hypertension. * The LV diastolic function is abnormal based on left atrial enlargement. GUAIAC POSITIVE STOOLS, ANEMIA - noted in the ED with brown stool - Pt denies any episodes of bloody stools - noted hgb 11.1 on 03/2017 - Hgb on admission 9.2, dropped to 8.1 today - with history of mechanical aortic and mitral valves and left atrial thrombosis - benefit outweighs risk - - Case discussed with cardiology and recommended to continue coumadin - Case discussed with GI for possible inpatient work up - Pt agreed for inpatient colonoscopy and EGD - Will continue monitor H/H 06/11 -Hgb 7.6 - Will transfuse 2 unit prbc, pt signed consent - EGD done today showed gastritis - Aspirin d/c - continue monitor h/h HX MECHANICAL AORTIC AND MITRAL VALVE, LEFT ATRIAL THROMBUS - had left atrial thrombus 02/2017 in the setting of subtherapeutic INR - INR 2.5 - Continue Coumadin - check INR DIASTOLIC DYSFUNCTION - echo 02/2017 - EF 60-64%, grade I diastolic dysfunction - Received lasix 60mg IV yesterday - Will monitor closely due to elevate creatine - Lasix given btw the 2 unit prbc - Stable HTN - BP controlled, continue hydralazine, metoprolol, and isosorbide CKD STAGE III - baseline creat runs in the mid 2's - creat noted to be 2.6 today - continue to monitor - avoid nephrotoxic agents HYPOTHYROIDISM - continue levothyroxine GOUT - continue allopurinol Psoriasis On clobetasol BID x max two weeks to heal plaques on extensor surfaces. DVT PROPHYLAXIS - on Coumadin CODE STATUS FULL CODE DISPOSITION Continue monitor in telemetry Consultants: Cardio Gastro Current Inpatient Medications: Current Inpatient Medications Medications (Trade) Dose Ordered Sig/Shana Route Start Time Stop Time Status Last Admin Dose Admin Acetaminophen (Tylenol Tab) 650 mg Q4H PRN PO 06/09/17 14:30 07/09/17 14:29 Ondansetron HCl (Zofran Inj) 4 mg Q6H PRN IV 06/09/17 14:30 07/09/17 14:29 Nitroglycerin (Nitrostat Tab) 0.4 mg UD PRN SL 06/09/17 14:30 07/09/17 14:29 Miscellaneous (Iv Fluids Completed) 1 ea PRN PRN N/A 06/09/17 14:45 06/09/18 14:44 Allopurinol (Zyloprim Tab) 100 mg DAILY PO 06/10/17 09:00 07/10/17 08:59 06/11/17 08:26 100 MG Calcitriol (Rocaltrol Cap) 0.25 mcg MoTh@0900 PO 06/12/17 09:00 07/12/17 08:59 Cyanocobalamin (Vitamin B-12 Tab) 1,000 mcg DAILY PO 06/10/17 09:00 07/10/17 08:59 06/11/17 08:26 1,000 MCG Gabapentin (Neurontin Cap) 100 mg DAILY PO 06/10/17 09:00 07/10/17 08:59 06/11/17 08:25 100 MG Hydralazine HCl (Apresoline Tab) 50 mg TID PO 06/09/17 21:00 07/09/17 20:59 06/11/17 14:24 50 MG Levothyroxine Sodium (Synthroid Tab) 25 mcg DAILYBB PO 06/10/17 06:00 07/10/17 05:59 06/11/17 06:18 25 MCG Warfarin Sodium (Coumadin Tab) 5 mg Mo@1600 PO 06/09/17 16:00 07/09/17 15:59 06/09/17 17:05 5 MG Ranitidine HCl (zANTac TAB) 300 mg HS PO 06/09/17 21:00 07/09/17 20:59 06/10/17 19:51 300 MG Warfarin Sodium (Coumadin Tab) 3.75 mg SuTuWeThFrSa@1600 PO 06/10/17 16:00 07/10/17 15:59 06/11/17 15:52 3.75 MG Morphine Sulfate (MoRPHine SULFATE INJ) 2 mg Q4H PRN IV 06/09/17 20:15 06/23/17 20:14 06/09/17 23:57 2 MG Atorvastatin Calcium (Lipitor Tab) 80 mg DAILY@2100 PO 06/09/17 21:00 07/09/17 20:59 06/10/17 19:49 80 MG Clobetasol Propionate (Clobetasol Propionate Oint) 1 appln BID EXT 06/09/17 21:00 06/23/17 20:59 06/11/17 08:27 1 APPLN Ferrous Sulfate (Feosol Tab) 325 mg BIDM PO 06/09/17 21:00 07/09/17 20:59 06/11/17 15:52 325 MG Hydromorphone HCl (Dilaudid Inj) 0.5 mg Q3H PRN IV 06/10/17 01:00 06/24/17 00:59 06/10/17 02:37 0.5 MG Tramadol HCl (Ultram Tab) not relieved by tylenol @ Q6H PRN PO 06/10/17 01:00 07/10/17 00:59 Furosemide (Lasix Tab) 40 mg DAILY PO 06/11/17 09:00 07/10/17 08:59 06/11/17 08:24 40 MG Spironolactone (Aldactone Tab) 12.5 mg DAILY PO 06/11/17 09:00 07/10/17 08:59 06/11/17 08:25 12.5 MG Albuterol/ Ipratropium (Duoneb) 3 ml Q2H PRN INH 06/10/17 03:00 07/10/17 02:59 Isosorbide Mononitrate (Imdur Ext Rel Tab) 60 mg QAM PO 06/11/17 09:00 07/10/17 08:59 06/11/17 08:25 60 MG Metoprolol Tartrate (Lopressor Tab) 50 mg BID PO 06/10/17 21:00 07/10/17 08:59 06/11/17 08:27 50 MG
[2017-06-11 21:09] LABS: HEMATOCRIT 31.8 % (37-47)
[2017-06-11] MEDS: RANITIDINE HCL 150 MG TAB PO SCH (21:39)
[2017-06-11] MEDS: ATORVASTATIN 40 MG TAB PO SCH (21:39)
[2017-06-12 04:00] VITALS: BP 128/52; PULSE 65; TEMP 36.6; O2SAT 96
[2017-06-12] MEDS: LEVOTHYROXINE 25 MCG TAB PO SCH (06:00)
[2017-06-12 06:11] LABS: INR 1.8 (0.9-1.1); PROTHROMBIN TIME (PATIENT) 19.3 SECONDS (9.0-12.0)
[2017-06-12 06:16] LABS: HEMATOCRIT 31.4 % (37-47); MEAN CELL VOLUME 102.3 fL (80-100); MEAN CORPUSCULAR HEMOGLOBIN 31.9 pg (25-34); MEAN CORPUSCULAR HGB CONC 31.2 g/dl (32-36); MEAN PLATELET VOLUME 9.8 fL (7.4-10.4); PLATELET COUNT 189 K/uL (130-400); RED BLOOD COUNT 3.07 M/uL (4.2-5.4); WHITE BLOOD COUNT 5.28 K/uL (4.8-10.8)
[2017-06-12 06:33] LABS: BUN/CREATININE RATIO 24.1 (10-20); CALCIUM 8.5 mg/dl (8.5-10.1); CREATININE 2.7 mg/dl (0.60-1.20)
[2017-06-12 07:56] VITALS: BP 138/63; PULSE 60; TEMP 36.9; O2SAT 96
[2017-06-12] MEDS: CYANOCOBALAMIN 500 MCG TAB (VIT B-12) PO SCH (08:38)
[2017-06-12] MEDS: FERROUS SULFATE 325 MG TAB PO SCH (08:38)
[2017-06-12] MEDS: ISOSORBIDE MONONITRATE 60 MG TABCR PO SCH (08:38)
[2017-06-12] MEDS: GABAPENTIN 100 MG CAP PO SCH (08:39)
[2017-06-12] MEDS: ALLOPURINOL 100 MG TAB PO SCH (08:39)
[2017-06-12] MEDS: SPIRONOLACTONE 25 MG TAB PO SCH (08:39)
[2017-06-12] MEDS: METOPROLOL TARTRATE 50 MG TAB PO SCH (08:39)
[2017-06-12] MEDS: FUROSEMIDE 40 MG TAB PO SCH (08:40)
[2017-06-12] MEDS: CLOBETASOL PROPIONATE 0.05% OINT 15 GM TUBE EXT SCH (08:40)
[2017-06-12] MEDS ORDERED: CALCITRIOL 0.25 MCG CAP PO SCH (09:00)
--- NOTE | 2017-06-12 10:08 | Cardiology Follow-Up ---
Subjective General Date of Service: Jun 12, 2017. Chief Complaint: SOB Pt evaluation today including: conversation w/ patient, conversation w/ family , physical exam, chart review, lab review, review of inpatient medication list History of Present Illness Patient seen and examination. Status post transfusion of 2 U PRBC's on 06/11/2017. No complaints except that the supplemental oxygen makes her sneeze. Feels back to baseline. Denies chest pain, palpitations, orthopnea, PND, or peripheral edema. Anxious for discharge Telemetry: (Chronic) atrial fibrillation with a controlled ventricular response. No significant bradyarrhythmias or pauses. June 10, 2017 TTE Interpretation Summary ([facility], Dr. Larson): No regional wall motion abnormalities noted. There is mild concentric left ventricular hypertrophy. The LV Ejection Fraction = 60-65%. Normal prosthetic aortic valve and prosthetic mitral valve function within the scope of transthoracic echocardiography. There is moderate tricuspid regurgitation. Doppler findings do not suggest pulmonary hypertension. The LV diastolic function is abnormal based on left atrial enlargement. Dobutamine stress echocardiography on March 19, 2017 was nonischemic at 129% age- predicted maximum heart rate. Allergies Coded Allergies: No Known Allergies (Unverified , 03/27/12) Social History Smoking Status: Current Every Day Smoker Hx Tobacco Use In Past Year?: Yes Hx Alcohol Use - Type And Amou: Yes (1-2 glasses of wine daily) Hx Substance Use - Type And Am: No Physical Exam Vital Signs Last Vital Signs Documentation Date Time Temp Pulse Resp B/P (MAP) Pulse Ox O2 Delivery O2 Flow Rate FiO2 06/12/17 08:00 Nasal Cannula 2.0 06/12/17 07:56 36.9 60 16 138/63 (88) 96 Physical Exam Constitutional: Level of Distress: acutely ill, chronically ill Psychiatric: Mental Status: active & alert Orientation: to time, to place, to person Memory: recent memory normal, remote memory normal Head: normocephalic, atraumatic Neck: pertinent finding (Normal JVP. + HJR) Lungs: Auscultation: no wheezing, no rhonchi, deminished air movement, decreased breath sounds, rales/crackles on the right Cardiovascular: Heart Auscultation: no rubs, II/ REGNIA, irregular rate rhythm Peripheral Pulses: Dorsalis Pedis Pulse: normal on the left, normal on the right Abdomen: Bowel Sounds: normal Inspection & Palpation: soft, no masses Extremities: no cyanosis, no edema Neurologic: Cranial Nerves: grossly intact Assessment and Plan Assessment and Plan Admission with chest pain felt to be in association with acute decompensated diastolic congestive heart failure as well as symptomatic anemia. EGD with gastritis. Status post 2 U PRBC's on 06/11/2017. RECOMMENDATIONS/PLAN: Recommend doubling furosemide/spironolactone 2 days nonconsecutive days per week Metoprolol and Imdur increased this admission for blood pressure and antianginal benefit. Oral iron replacement and folic acid added given observed iron deficiency and suspect valvular hemolysis Aspirin discontinued. Continue Chronic Coumadin anticoagulation, RE: mechanical aortic and mitral valves, chronic atrial fibrillation, left atrial thrombus. She is not a NOAC candidate. Tobacco cessation and compliance with supplemental oxygen therapy as prescribed advised. Outpatient cardiology follow-up on May at 2:45 PM ( [facility]) CARDIOLOGY ATTENDING ADDENDUM: The patient was seen and personally examined. Agree with Jorge Myers PA-C's findings and plans as documented above. Pt with more energy today. Walked in hallway slowly without anginal symptoms. Stable for DC to home with plan as above. Laboratory Results Last 24 Hours Test 06/11/17 19:42 06/12/17 05:30 Hemoglobin 9.9 g/dL 9.8 g/dL Hematocrit 31.8 % 31.4 % White Blood Count 5.28 K/uL Red Blood Count 3.07 M/uL Mean Corpuscular Volume 102.3 fL Mean Corpuscular Hemoglobin 31.9 pg Mean Corpuscular Hemoglobin Concent 31.2 g/dl RDW Standard Deviation 75.0 fL RDW Coefficient of Variation 20.0 % Platelet Count 189 K/uL Mean Platelet Volume 9.8 fL Prothrombin Time 19.3 SECONDS Prothromb Time International Ratio 1.8 Sodium Level 140 mmol/L Potassium Level 4.0 mmol/L Chloride Level 106 mmol/L Carbon Dioxide Level 29 mmol/L Anion Gap 5.0 mmol/L Blood Urea Nitrogen 65 mg/dl Creatinine 2.70 mg/dl Est Creatinine Clear Calc Drug Dose 14.0 ml/min Estimated GFR () 19.1 Estimated GFR (Non- 16.5 BUN/Creatinine Ratio 24.1 Random Glucose 86 mg/dl Calcium Level 8.5 mg/dl
[2017-06-12 12:02] VITALS: BP 139/68; PULSE 74; TEMP 36.6; O2SAT 97
--- NOTE | 2017-06-12 13:25 | Progress Note ---
Internal Med Progress Note Date of Service: Jun 12, 2017. Provider Documentation: SUBJECTIVE: The patine luis seen and examined Denies any symptoms Wants to go home Ambulating without any difficulty OBJECTIVE: Vital Signs-as noted below Exam: General-No distress at rest Eyes-normal ENT-normal Neck-supple Lungs-clear to auscultate bilaterally Heart-Regular,Prosthetic valve sound Abdomen-Benign,no masses,bowel sound preasent Extremities-No edema Neuro-AAox3 ,NO focal neuro deficit Lab data as noted below. ASSESSMENT & PLAN: CHEST PAIN - Has significant risks factor, need to r/o ACS - 03/19/17 - negative dobutamine stress test -Complicated by Acute Decompensated CHF and Anemia ECHO showed * No regional wall motion abnormalities noted. * There is mild concentric left ventricular hypertrophy. * The LV Ejection Fraction = 60-65%. * Normal prosthetic aortic valve and prosthetic mitral valve function within the scope of transthoracic echocardiography. * There is moderate tricuspid regurgitation. * Doppler findings do not suggest pulmonary hypertension. * The LV diastolic function is abnormal based on left atrial enlargement. Appreciate cardiology input Medications adjusted Suspected GI bleed evidenced by worsening anemia and + FOB GUAIAC POSITIVE STOOLS, ANEMIA - Pt denies any episodes of bloody stools - with history of mechanical aortic and mitral valves and left atrial thrombosis - benefit outweighs risk - -Received 2 units of PRBC -Appreciate GI input - EGD done today showed gastritis - Aspirin d/c - Hb remains stable HX MECHANICAL AORTIC AND MITRAL VALVE, LEFT ATRIAL THROMBUS - had left atrial thrombus 02/2017 in the setting of subtherapeutic INR - INR 2.5 - Continue Coumadin - May have Hemolysis secondary to Mechanical valve -will add Iron and Folic acid on discharge Acute on Chronic DIASTOLIC DYSFUNCTION Treated with Diuretics - echo 02/2017 - EF 60-64%, grade I diastolic dysfunction - Received Lasix 60mg IV -will continue Diuretics as advised by the [employer] HTN - BP controlled, continue hydralazine, metoprolol, and isosorbide JUAN C on CKD STAGE III-IV - baseline creat runs in the mid 2's - creat noted to be 2.6 today - continue to monitor - avoid nephrotoxic agents HYPOTHYROIDISM - continue levothyroxine GOUT - continue allopurinol Psoriasis On clobetasol BID x max two weeks to heal plaques on extensor surfaces. DVT PROPHYLAXIS - on Coumadin CODE STATUS FULL CODE DISPOSITION Continue monitor in telemetry Consultants: Cardio Gastro Likely discharge today Discussed with the daughter Vital Signs: Date Time Temp Pulse Resp B/P (MAP) Pulse Ox O2 Delivery O2 Flow Rate FiO2 06/12/17 12:02 36.6 74 16 139/68 (91) 97 06/12/17 12:00 Nasal Cannula 2.0 06/12/17 08:00 Nasal Cannula 2.0 06/12/17 07:56 36.9 60 16 138/63 (88) 96 Nasal Cannula 06/12/17 04:00 36.6 65 18 128/52 (77) 96 Nasal Cannula 2.0 06/12/17 04:00 Nasal Cannula 2.0 06/11/17 23:59 Nasal Cannula 2.0 06/11/17 23:00 36.8 68 18 126/65 (85) 95 Nasal Cannula 2.0 06/11/17 20:00 Nasal Cannula 2.0 06/11/17 19:23 36.9 76 18 129/63 (85) 91 Nasal Cannula 2.0 06/11/17 18:01 36.8 67 18 120/66 92 06/11/17 17:01 36.4 77 20 142/70 99 06/11/17 16:20 36.9 79 18 128/71 97 2.0 06/11/17 16:00 36.6 67 18 134/57 97 2.0 06/11/17 16:00 Nasal Cannula 2.0 06/11/17 15:26 37.0 70 21 122/55 (77) 91 Nasal Cannula 2.0 06/11/17 14:40 36.8 70 16 115/68 97 06/11/17 13:40 36.9 68 16 118/72 97 2.0 Lab Results: Results Past 24 Hours Test 06/11/17 19:42 06/12/17 05:30 Range/Units Hemoglobin 9.9 9.8 12.0-16.0 g/dL Hematocrit 31.8 31.4 37-47 % White Blood Count 5.28 4.8-10.8 K/uL Red Blood Count 3.07 4.2-5.4 M/uL Mean Corpuscular Volume 102.3 80-100 fL Mean Corpuscular Hemoglobin 31.9 25-34 pg Mean Corpuscular Hemoglobin Concent 31.2 32-36 g/dl RDW Standard Deviation 75.0 36.4-46.3 fL RDW Coefficient of Variation 20.0 11.5-14.5 % Platelet Count 189 130-400 K/uL Mean Platelet Volume 9.8 7.4-10.4 fL Prothrombin Time 19.3 9.0-12.0 SECONDS Prothromb Time International Ratio 1.8 0.9-1.1 Sodium Level 140 136-145 mmol/L Potassium Level 4.0 3.5-5.1 mmol/L Chloride Level 106 98-107 mmol/L Carbon Dioxide Level 29 21-32 mmol/L Anion Gap 5.0 3-11 mmol/L Blood Urea Nitrogen 65 7-18 mg/dl Creatinine 2.70 0.60-1.20 mg/dl Est Creatinine Clear Calc Drug Dose 14.0 ml/min Estimated GFR () 19.1 Estimated GFR (Non- 16.5 BUN/Creatinine Ratio 24.1 10-20 Random Glucose 86 70-99 mg/dl Calcium Level 8.5 8.5-10.1 mg/dl
[2017-06-12 15:09] VITALS: BP 120/58; PULSE 67; TEMP 36.7; O2SAT 97
[2017-06-12] MEDS ORDERED: IMDSR60 PO (15:17)
[2017-06-12] MEDS ORDERED: LPT40 PO (15:17)
[2017-06-12] MEDS ORDERED: NTRSLP4 SL (15:17)
[2017-06-12] MEDS ORDERED: FRRS300 PO (15:17)
[2017-06-12] MEDS ORDERED: FLV1 PO (15:17)
[2017-06-12 15:20] VITALS: BP 139/68; PULSE 74; TEMP 36.6; O2SAT 97
--- NOTE | 2017-06-12 15:23 | Discharge Instructions ---
Discharge Instructions Date of Service Jun 12, 2017. Admission Reason for Admission: Chest Pain Discharge Discharge Diagnosis / Problem: Acute Diastolic CHF,GI bleed due to Gastritis, AVR,NVR -on anticoagulation Discharge Goals Goal(s): Prevent Disease Progression Activity Recommendations Activity Limitations: resume your previous activity . Instructions / Follow-Up Instructions / Follow-Up DR Aguillon on 06/19/17 at 12:45 PM ,Cardiology on 06/19/17 at 2:45 PM ,Coagulation clinic notified Current Hospital Diet Patient's current hospital diet: AHA Diet (Heart Healthy) Discharge Diet Recommended Diet: AHA Diet (Heart Healthy) Fluid Restriction: 1500 ml (6 cups) Procedures Procedures Performed: EGD Pending Studies Studies pending at discharge: no Laboratory Results Hemoglobin A1c Test 06/10/17 04:00 Range/Units Estimated Average Glucose 97 mg/dl Hemoglobin A1c 5.0 4.5-5.6 % Lipid Panel Test 06/10/17 04:00 Range/Units Triglycerides Level 63 0-150 mg/dl Cholesterol Level 150 0-200 mg/dl HDL Cholesterol 97 mg/dl Cholesterol/HDL Ratio 1.5 LDL Cholesterol, Calculated 40 mg/dl Medical Emergencies . Who to Call and When: Medical Emergencies: If at any time you feel your situation is an emergency, please call 911 immediately. . Non-Emergent Contact Non-Emergency issues call your: Primary Care Provider . Past History Medical & Surgical History: (1) Chest pain (2) Rheumatic heart disease (3) Atrial fibrillation (4) Hypothyroidism (5) HTN (hypertension) (6) CKD (chronic kidney disease), stage IV (7) Gout (8) H/O aortic valve replacement (9) H/O mitral valve replacement (10) History of hysterectomy (11) Status post total hip replacement, left (12) Status post total hip replacement, right (13) Hx of thyroidectomy . "Provider Documentation" section prepared by Breana Hagan. . VTE Core Measure Inpt VTE Proph given/why not?: Warfarin (Coumadin)
[2017-06-12] MEDS: WARFARIN PO SCH (16:00)
--- NOTE | 2017-06-13 11:13 | Discharge Summary ---
Discharge Summary Date of Service Jun 13, 2017. Discharge Summary Admission Date: Jun 10, 2017 at 21:40 Discharge Date: Jun 12, 2017 Discharge Disposition: Home Principal Diagnosis: Acute Diastolic CHF,GI bleed due to Gastritis,AVR,NVR -on anticoagulation Secondary Diagnoses/Problems: Please see H&P and Hospital Progress note Consultations: Cardiology & Gastroenterology Medication Reconciliation New Medications: Atorvastatin (Atorvastatin Calcium) 40 Mg Tab 80 MG PO DAILY@2100 for 30 Days, #30 TAB Ferrous Sulfate (Ferrous Sulfate) 325 Mg Tab 325 MG PO BIDM for 30 Days, #60 TAB Folic Acid (Folic Acid) 1 Mg Tab 1 MG PO QAM for 30 Days, #30 TAB Isosorbide Mononitrate (Isosorbide Mononitrate ER) 60 Mg Tab 60 MG PO QAM for 30 Days, #30 TAB Nitroglycerin (Nitrostat) 0.4 Mg/1 Tab Subl 0.4 MG SL UD PRN for Chest Pain for 30 Days, #25 Continued Medications: Allopurinol (Zyloprim) 100 Mg Tab 100 MG PO DAILY, TAB Calcitriol (Rocaltrol Cap) 0.25 Mcg Cap 1 CAP PO 2XWK for 30 Days, CAP 5 Refills fri, Cyanocobalamin (Vitamin B-12 1000 Mcg) 1,000 Mcg Tab 1 TAB PO DAILY for 30 Days, #30 TAB 2 Refills Furosemide (Lasix) 20 Mg Tab 40 MG PO UD, TAB 2 days Nonconsecutive days per week Gabapentin (Neurontin) 100 Mg Cap 100 MG PO DAILY, CAP Hydralazine Hcl (Apresoline) 50 Mg Tab 1 TAB PO TID for 30 Days, #90 TAB 5 Refills Levothyroxine Sodium (Synthroid) 25 Mcg Tab 25 MCG PO DAILY, TAB Metoprolol Tartrate (Lopressor) 50 Mg Tab 50 MG PO BID, TAB Montelukast Sodium (Montelukast Sodium) 10 Mg Tab 1 TAB PO DAILY PRN for allergies for 30 Days, #30 TAB 5 Refills Ranitidine (Zantac) 300 Mg Tab 300 MG PO HS, TAB Spironolactone (Aldactone) 25 Mg Tab 12.5 MG PO UD for 90 Days, TAB 1 Refill For 2 nonconsecutive days per week Warfarin Sod (Jantoven) 2.5 Mg Tab 3.75 MG PO 6XWK, TAB all days except Friday Warfarin Sod (Coumadin) 2.5 Mg Tab 5 MG PO WK for 30 Days, TAB 3 Refills Mondays Discontinued Medications: Aspirin Enteric Coated (Ecotrin Or Generic) 81 Mg Tab 81 MG PO DAILY, TAB Isosorbide Mononitrate Ext Rel (Imdur Ext Rel) 30 Mg Tabcr 1 TAB PO QAM, TAB Metoprolol Tartrate (Lopressor) 50 Mg Tab 25 MG PO HS, TAB Admission Information HPI (per Admitting provider): 76 year old female who presents to the ER with chest pain. She reports her symptoms started 4 days ago. She describes the pain as located substernally/ epigastric area. She describes the pain as pressure and knot like feeling. Pain was brought on with exertion and relieved however not resolved with rest. She reports the pain #10/10 at its worst. She also had associated pain going down both arms and associated shortness of breath. She is to wear oxygen at night however is non complaint. She continues to smoke. She thinks she may have had similar pain after eating earlier in the week. She denies associated lightheadedness, dizziness, diaphoresis, or syncopal events. She denies abdominal pain, nausea, vomiting, or diarrhea. No fever or chills. She denies urinary symptoms. In the ED, patient was given nitro without improvement in her pain. She was then given Fentanyl and reports she feels much better. Initial troponin is negative, EKG shows new T-wave inversions laterally. Past Medical/Surgical History Medical Problems: (1) Atrial fibrillation Status: Chronic (2) CKD (chronic kidney disease), stage IV Status: Chronic (3) Dyslipidemia Status: Chronic (4) Gout Status: Chronic (5) HTN (hypertension) Status: Chronic (6) Hypothyroidism Status: Chronic (7) Left atrial thrombus Status: Chronic (8) Osteoporosis Status: Chronic (9) Rheumatic heart disease Status: Chronic (10) Spinal stenosis Status: Chronic Surgical Problems: (1) H/O aortic valve replacement Permanent Comment: mechanical, 1996 Status: Chronic (2) H/O mitral valve replacement Permanent Comment: mechanical, 1996 Status: Chronic (3) History of hysterectomy Status: Chronic (4) Hx of thyroidectomy Status: Chronic (5) Status post total hip replacement, left Status: Chronic (6) Status post total hip replacement, right Status: Chronic Family History Stroke MOTHER Social History Smoking Status: Current Every Day Smoker Alcohol Use: 1 glass wine/night Immunizations History of Influenza Vaccine: Yes Influenza Vaccine Date: Jun 25, 2016 History of Pneumococcal: Yes Pneumococcal Date: Apr 04, 2015 Allergies Coded Allergies: No Known Allergies (Unverified , 03/27/12) Home Medications Scheduled Allopurinol (Zyloprim), 100 MG PO DAILY Aspirin Enteric Coated (Ecotrin Or Generic), 81 MG PO DAILY Calcitriol (Rocaltrol Cap), 1 CAP PO 2XWK Cyanocobalamin (Vitamin B-12 1000 Mcg), 1 TAB PO DAILY Furosemide (Lasix), 40 MG PO DAILY Gabapentin (Neurontin), 100 MG PO DAILY Hydralazine Hcl (Apresoline), 1 TAB PO TID Isosorbide Mononitrate Ext Rel (Imdur Ext Rel), 1 TAB PO QAM Levothyroxine Sodium (Synthroid), 25 MCG PO DAILY Metoprolol Tartrate (Lopressor), 50 MG PO DAILY Metoprolol Tartrate (Lopressor), 25 MG PO HS Ranitidine (Zantac), 300 MG PO HS Spironolactone (Aldactone), 12.5 MG PO DAILY Warfarin Sod (Jantoven), 3.75 MG PO 6XWK Warfarin Sod (Coumadin), 5 MG PO WK Scheduled PRN Montelukast Sodium (Montelukast Sodium), 1 TAB PO DAILY PRN for allergies Review of Systems ROS per HPI, all other systems reviewed and negative Physical Exam Vital Signs Date Time Temp Pulse Resp B/P (MAP) Pulse Ox O2 Delivery O2 Flow Rate FiO2 06/09/17 16:48 72 114/71 (85) 95 Nasal Cannula 2.0 Humidified Oxygen 06/09/17 16:00 96 Nasal Cannula 2.0 Humidified Oxygen 06/09/17 15:44 37.0 74 20 178/55 (96) 87 Room Air 06/09/17 15:01 129/74 06/09/17 14:46 123/74 06/09/17 14:38 36.4 72 19 109/59 97 Nasal Cannula 2.0 06/09/17 14:36 72 22 97 06/09/17 14:31 120/66 06/09/17 14:16 116/66 06/09/17 14:06 70 16 97 06/09/17 14:01 109/59 06/09/17 13:46 110/73 06/09/17 13:36 81 16 99 06/09/17 13:31 117/80 06/09/17 13:16 126/69 06/09/17 13:06 69 19 98 06/09/17 13:01 134/63 06/09/17 12:55 80 19 97 06/09/17 12:46 130/62 06/09/17 12:43 91 Room Air 06/09/17 12:43 93 Nasal Cannula 2.0 06/09/17 12:41 105/52 06/09/17 12:40 96 Room Air 06/09/17 12:36 130/74 06/09/17 12:34 141/64 06/09/17 12:25 81 22 06/09/17 12:12 76 06/09/17 12:02 98 Room Air 06/09/17 12:00 36.4 79 18 147/68 98 Room Air General Appearance: no apparent distress Head: normocephalic Eyes: normal inspection, sclerae normal ENT: hearing grossly normal Neck: supple, no JVD Respiratory/Chest: lungs clear, normal breath sounds, no respiratory distress Cardiovascular: no edema, normal peripheral pulses, + irregularly irregular ( rate controlled) Abdomen/GI: normal bowel sounds, non tender, soft Extremities/Musculoskelatal: normal inspection, no calf tenderness Neurologic/Psych: no motor/sensory deficits, alert, normal mood/affect, oriented x 3 Skin: normal color, warm/dry Diagnostics Laboratory Results Results Past 24 Hours Test 06/09/17 12:12 06/09/17 12:37 06/09/17 18:00 06/09/17 18:12 Range/Units White Blood Count 5.99 4.8-10.8 K/uL Red Blood Count 2.71 4.2-5.4 M/uL Hemoglobin 9.2 12.0-16.0 g/dL Hematocrit 28.6 37-47 % Mean Corpuscular Volume 105.5 80-100 fL Mean Corpuscular Hemoglobin 33.9 25-34 pg Mean Corpuscular Hemoglobin Concent 32.2 32-36 g/dl Platelet Count 270 130-400 K/uL Mean Platelet Volume 9.7 7.4-10.4 fL Neutrophils (%) (Auto) 70.1 % Lymphocytes (%) (Auto) 16.5 % Monocytes (%) (Auto) 9.8 % Eosinophils (%) (Auto) 2.7 % Basophils (%) (Auto) 0.7 % Neutrophils # (Auto) 4.20 1.4-6.5 K/uL Lymphocytes # (Auto) 0.99 1.2-3.4 K/uL Monocytes # (Auto) 0.59 0.11-0.59 K/uL Eosinophils # (Auto) 0.16 0-0.5 K/uL Basophils # (Auto) 0.04 0-0.2 K/uL RDW Standard Deviation 62.1 36.4-46.3 fL RDW Coefficient of Variation 16.0 11.5-14.5 % Immature Granulocyte % (Auto) 0.2 % Immature Granulocyte # (Auto) 0.01 0.00-0.02 K/uL Absolute Reticulocyte Count 0.06 0.02-0.10 10^6/uL Percent Reticulocyte Count 2.2 0.5-2.0 % Prothrombin Time 27.4 9.0-12.0 SECONDS Prothromb Time International Ratio 2.5 0.9-1.1 Activated Partial Thromboplast Time 36.4 21.0-31.0 SECONDS Partial Thromboplastin Ratio 1.4 Sodium Level 138 136-145 mmol/L Potassium Level 3.8 3.5-5.1 mmol/L Chloride Level 102 98-107 mmol/L Carbon Dioxide Level 26 21-32 mmol/L Anion Gap 10.0 3-11 mmol/L Blood Urea Nitrogen 68 7-18 mg/dl Creatinine 2.70 0.60-1.20 mg/dl Estimated GFR () 19.1 Estimated GFR (Non- 16.5 BUN/Creatinine Ratio 25.1 10-20 Random Glucose 90 70-99 mg/dl Calcium Level 9.1 8.5-10.1 mg/dl Iron Level 22 35-150 mcg/dl Total Iron Binding Capacity 421 250-450 mcg/dl Transferrin 327 200-360 mg/dl Transferrin % Saturation 5 15-50 % Ferritin 30.5 8.0-388.0 ng/ml Total Bilirubin 0.4 0.2-1 mg/dl Direct Bilirubin 0.1 0-0.2 mg/dl Aspartate Amino Transf (AST/SGOT) 28 15-37 U/L Alanine Aminotransferase (ALT/SGPT) 13 12-78 U/L Alkaline Phosphatase 62 45-117 U/L Pro-B-Type Natriuretic Peptide 7242 0-1800 pg/ml Total Protein 7.8 6.4-8.2 gm/dl Albumin 3.7 3.4-5.0 gm/dl Lipase 193 73-393 U/L Bedside Troponin I 0.040 0-0.045 ng/ml Creatine Kinase MB Ratio 0-3.0 Creatine Kinase MB 1.5 0.5-3.6 ng/ml Troponin I 0.047 0-0.045 ng/ml Vitamin B12 Level 1273 211-911 pg/mL Folate 14.89 >5.38 ng/mL Diagnostic Radiology CXR IMPRESSION: 1. Interstitial thickening suggestive of mild pulmonary edema. 2. Moderate cardiomegaly. Impression Assessment and Plan CHEST PAIN - admit to tele - patient presenting with exertional substernal / epigastric pain with associated BL arm pain and shortness of breath x 4 days; in the ED, initial troponin negative, EKG shows new T-wave inversions laterally - patient given nitro in the ED without improvement in pain, then was given Fentanyl with relief - 03/19/17 - negative dobutamine stress test - continue to cycle cardiac enzymes - continue ASA, nitrate, and beta ida; will start high intensity statin - cardio consult, input appreciated - consider GI etiology given location of the pain GUAIAC POSITIVE STOOLS, ANEMIA - noted in the ED with brown stool - no reports of BRBPR or dark tarry stools - noted hgb 11.1 03/2017 -> 9.2 today - check iron studies - GI consult, input appreciated - no signs of gross GI bleeding and with history of mechanical aortic and mitral valves and left atrial thrombosis - benefit outweighs risk - therefore, will continue Coumadin for now HX MECHANICAL AORTIC AND MITRAL VALVE, LEFT ATRIAL THROMBUS - had left atrial thrombus 02/2017 in the setting of subtherapeutic INR - INR 2.5 today, continue Coumadin DIASTOLIC DYSFUNCTION - echo 02/2017 - EF 60-64%, grade I diastolic dysfunction - continue home furosemide and spironolactone - CXR being read as mild CHF however lungs clear on exam, no edema noted HTN - BP controlled, continue hydralazine, metoprolol, and isosorbide CKD STAGE III - baseline creat runs in the mid 2's - creat noted to be 2.7 today - continue to monitor, avoid nephrotoxic agents when able HYPOTHYROIDISM - continue levothyroxine GOUT - continue allopurinol Psoriasis-started clobetasol BID x max two weeks to heal plaques on extensor surfaces. Of note, uncontrolled psoriasis increases inflammation making CAD more likely. DVT PROPHYLAXIS - on Coumadin with therapeutic INR CODE STATUS - Patient is a full code as per my discussion with her. DISPO - The patient will be placed as observation status for now until further work up is complete. ADDENDUM: I have seen and evaluated the patient and agree with the assessment and plan as stated above. Pt was having persistent chest pressure in the epigastric region. This was after dinner and she was reporting feeling gaseous so she was given a GI cocktail. This made her belch excessively with some relief, but pain still was present. She was offered morphine and declined and then shortly afterward she fell asleep. Cont to trend enzymes and plan as above. Ramana, Level of Care Telemetry Advanced Directives Existing Living Will: Yes Existing Power of Antenna Rigger: Yes Resuscitation Status FULL RESUSCITATION VTE Prophylaxis VTE Risk Assessment Done? Y/N: Yes Risk Level: Moderate Given or contraindicated: Warfarin (Coumadin) Physical Exam (per Admitting): General Appearance: no apparent distress Head: normocephalic Eyes: normal inspection, sclerae normal ENT: hearing grossly normal Neck: supple, no JVD Respiratory/Chest: lungs clear, normal breath sounds, no respiratory distress Cardiovascular: no edema, normal peripheral pulses, + irregularly irregular (rate controlled) Abdomen/GI: normal bowel sounds, non tender, soft Extremities/Musculoskelatal: normal inspection, no calf tenderness Neurologic/Psych: no motor/sensory deficits, alert, normal mood/affect, oriented x 3 Skin: normal color, warm/dry Hospital Course CHEST PAIN - Has significant risks factor, need to r/o ACS - 03/19/17 - negative dobutamine stress test -Complicated by Acute Decompensated CHF and Anemia ECHO showed * No regional wall motion abnormalities noted. * There is mild concentric left ventricular hypertrophy. * The LV Ejection Fraction = 60-65%. * Normal prosthetic aortic valve and prosthetic mitral valve function within the scope of transthoracic echocardiography. * There is moderate tricuspid regurgitation. * Doppler findings do not suggest pulmonary hypertension. * The LV diastolic function is abnormal based on left atrial enlargement. Appreciate cardiology input Medications adjusted Suspected GI bleed evidenced by worsening anemia and + FOB GUAIAC POSITIVE STOOLS, ANEMIA - Pt denies any episodes of bloody stools - with history of mechanical aortic and mitral valves and left atrial thrombosis - benefit outweighs risk - -Received 2 units of PRBC -Appreciate GI input - EGD done today showed gastritis - Aspirin d/c - Hb remains stable HX MECHANICAL AORTIC AND MITRAL VALVE, LEFT ATRIAL THROMBUS - had left atrial thrombus 02/2017 in the setting of subtherapeutic INR - INR 2.5 - Continue Coumadin - May have Hemolysis secondary to Mechanical valve -will add Iron and Folic acid on discharge Acute on Chronic DIASTOLIC DYSFUNCTION Treated with Diuretics - echo 02/2017 - EF 60-64%, grade I diastolic dysfunction - Received Lasix 60mg IV -will continue Diuretics as advised by the Railroad Surveyor HTN - BP controlled, continue hydralazine, metoprolol, and isosorbide JUAN C on CKD STAGE III-IV - baseline creat runs in the mid 2's - creat noted to be 2.6 today - continue to monitor - avoid nephrotoxic agents HYPOTHYROIDISM - continue levothyroxine GOUT - continue allopurinol Psoriasis On clobetasol BID x max two weeks to heal plaques on extensor surfaces. DVT PROPHYLAXIS - on Coumadin CODE STATUS FULL CODE DISPOSITION Continue monitor in telemetry Consultants: Cardio Gastro Likely discharge today Discussed with the daughter Total time spent on discharge = 35 minutes This includes examination of the patient, discharge planning, medication reconciliation, and communication with other providers. Discharge Instructions Date of Service Jun 12, 2017. Admission Reason for Admission: Chest Pain Discharge Discharge Diagnosis / Problem: Acute Diastolic CHF,GI bleed due to Gastritis, AVR,NVR -on anticoagulation Discharge Goals Goal(s): Prevent Disease Progression Activity Recommendations Activity Limitations: resume your previous activity . Instructions / Follow-Up Instructions / Follow-Up DR Aguillon on 06/19/17 at 12:45 PM ,Cardiology on 06/19/17 at 2:45 PM ,Coagulation clinic notified Current Hospital Diet Patient's current hospital diet: AHA Diet (Heart Healthy) Discharge Diet Recommended Diet: AHA Diet (Heart Healthy) Fluid Restriction: 1500 ml (6 cups) Procedures Procedures Performed: EGD Pending Studies Studies pending at discharge: no Laboratory Results Hemoglobin A1c Test 06/10/17 04:00 Range/Units Estimated Average Glucose 97 mg/dl Hemoglobin A1c 5.0 4.5-5.6 % Lipid Panel Test 06/10/17 04:00 Range/Units Triglycerides Level 63 0-150 mg/dl Cholesterol Level 150 0-200 mg/dl HDL Cholesterol 97 mg/dl Cholesterol/HDL Ratio 1.5 LDL Cholesterol, Calculated 40 mg/dl Medical Emergencies . Who to Call and When: Medical Emergencies: If at any time you feel your situation is an emergency, please call 911 immediately. . Non-Emergent Contact Non-Emergency issues call your: Primary Care Provider . Past History Medical & Surgical History: (1) Chest pain (2) Rheumatic heart disease (3) Atrial fibrillation (4) Hypothyroidism (5) HTN (hypertension) (6) CKD (chronic kidney disease), stage IV (7) Gout (8) H/O aortic valve replacement (9) H/O mitral valve replacement (10) History of hysterectomy (11) Status post total hip replacement, left (12) Status post total hip replacement, right (13) Hx of thyroidectomy . "Provider Documentation" section prepared by Breana Hagan. . VTE Core Measure Inpt VTE Proph given/why not?: Warfarin (Coumadin) <Electronically signed by Breana Hagan M.D.> Additional Copies To Lana Aguillon M.D.
== END 2017-06-12 16:15 | disposition home health service (06) | DRG 377 ==
LOC: C.EDB 11:57 → C.2T 14:26 → EDBEDREQ 14:29 → ENRESERV 15:09 → OBSVTOIN 06-10 21:40
PROVIDERS: ADMIT Hospitalist; ATTEND Internal Medicine
PROC: 0DJ08ZZ Inspection of Upper Intestinal Tract, Via Natural or Artificial Opening Endoscopic (ICD-10-PCS; principal; 2017-06-11 09:53)
DX: K29.71 Gastritis, unspecified, with bleeding (principal); I50.33 Acute on chronic diastolic (congestive) heart failure; I13.0 Hypertensive heart and chronic kidney disease with heart failure and stage 1 through stage 4 chronic kidney disease, or unspecified chronic kidney disease; N17.9 Acute kidney failure, unspecified; N18.4 Chronic kidney disease, stage 4 (severe); K44.9 Diaphragmatic hernia without obstruction or gangrene; I48.91 Unspecified atrial fibrillation; E78.5 Hyperlipidemia, unspecified; E03.9 Hypothyroidism, unspecified; M10.9 Gout, unspecified; D64.9 Anemia, unspecified; K21.9 Gastro-esophageal reflux disease without esophagitis; I09.9 Rheumatic heart disease, unspecified; M48.00 Spinal stenosis, site unspecified; F17.210 Nicotine dependence, cigarettes, uncomplicated; R07.9 Chest pain, unspecified; M81.0 Age-related osteoporosis without current pathological fracture; K92.1 Melena; Z95.2 Presence of prosthetic heart valve; Z96.641 Presence of right artificial hip joint; Z96.642 Presence of left artificial hip joint; L40.9 Psoriasis, unspecified; Z79.899 Other long term (current) drug therapy; Z79.82 Long term (current) use of aspirin; Z79.01 Long term (current) use of anticoagulants

== ENCOUNTER 2017-10-09 16:32 | Inpatient (IN) | payer OTHER ==
[~2017-10-09] VITALS: Ht 157.5 cm; Wt 53.0 kg
[~2017-10-09 16:32] MED LIST changes: -ASPI81TA21 PO; +CMD/25 PO; -CMDUNK PO; +FLV1 PO; +FRRS300 PO; +IMDSR60 PO; -ISOS30TA35 PO; +LPT40 PO; +NTRSLP4 SL; +WARF2.5T8 PO
[2017-10-09 19:40] LABS: BASO % 0.3 %; BASO ABS # 0.02 K/uL (0-0.2); EOS % 3.4 %; HEMATOCRIT 33.7 % (37-47); IG# 0.01 K/uL (0.00-0.02); LYMPH % 12.4 %; LYMPH ABS # 0.72 K/uL (1.2-3.4); MEAN CELL VOLUME 108.4 fL (80-100); MEAN CORPUSCULAR HEMOGLOBIN 35.4 pg (25-34); MEAN CORPUSCULAR HGB CONC 32.6 g/dl (32-36); MEAN PLATELET VOLUME 10.1 fL (7.4-10.4); MONO % 11.4 %; MONO ABS # 0.66 K/uL (0.11-0.59); NEUT % 72.3 %; NEUT ABS # 4.19 K/uL (1.4-6.5); PLATELET COUNT 206 K/uL (130-400); RED CELL DISTRIBUTION WIDTH CV 15.5 % (11.5-14.5); RED CELL DISTRIBUTION WIDTH SD 61.1 fL (36.4-46.3)
[2017-10-09 20:02] LABS: INR 3.1 (0.9-1.1); PTT PATIENT 40.6 SECONDS (21.0-31.0)
[2017-10-09 20:03] LABS: ALBUMIN 3.2 gm/dl (3.4-5.0); CALCIUM 8.7 mg/dl (8.5-10.1); CREATININE 2.93 mg/dl (0.60-1.20); POTASSIUM 2.9 mmol/L (3.5-5.1)
[2017-10-09 20:08] LABS: CKMB 1.6 ng/ml (0.5-3.6); TOTAL PROTEIN 7.7 gm/dl (6.4-8.2)
--- NOTE | 2017-10-09 20:08 | DIAGNOSTIC IMAGING REPORT ---
SINGLE VIEW CHEST CLINICAL HISTORY: Dyspnea. FINDINGS: An AP, portable, upright chest radiograph is compared to study dated 06/09/2017. The examination is degraded by portable technique and patient rotation. The patient is status post midline sternotomy and cardiac valve surgery. The heart is enlarged and there is atherosclerotic calcification of the thoracic aorta. There is pulmonary vascular congestion and interstitial edema. Trace pleural effusions are identified. Bibasilar atelectasis is noted. No pneumothorax is seen. The skeletal structures are osteopenic. The bony thorax is grossly intact. IMPRESSION: 1. Cardiomegaly with evidence of congestive failure and interstitial edema. 2. Trace pleural effusions. Electronically signed by: Rell Butler M.D. 10/09/2017 8:07 PM Dictated Date/Time: 10/09/2017 8:06 PM
[2017-10-09] MEDS ORDERED: TRAZ50TA35 PO (20:11)
[2017-10-09] MEDS ORDERED: ISOS60TA25 PO (20:11)
[2017-10-09] MEDS ORDERED: FLV1 PO (20:11)
[2017-10-09] MEDS ORDERED: FERRTAB18 PO (20:11)
[2017-10-09] MEDS ORDERED: PANT40TA PO (20:11)
[2017-10-09] MEDS ORDERED: POTASSIUM CHLORIDE 10 MEQ TABCR PO STA ×2 (22:09→23:58)
[2017-10-09] MEDS ORDERED: FUROSEMIDE INJ 80 MG in SYRINGE 0 ML IV STA (22:24)
[2017-10-09] MEDS ORDERED: FUROSEMIDE 40 MG/4 ML VIAL IV STA (22:27)
[2017-10-09] MEDS ORDERED: RANITIDINE HCL 150 MG TAB PO STA (23:58)
[2017-10-09] MEDS ORDERED: LEVALBUTEROL/IPRATROPIUM NEB INH STA (23:58)
[2017-10-10] VITALS (8 sets, daily range): BP systolic 121–168; BP diastolic 45–77; PULSE 69–89; TEMP 36.5–37; O2SAT 89–96; Ht 157.5 cm; Wt 53.0 kg
[2017-10-10] MEDS ORDERED: ACETAMINOPHEN 325 MG TAB PO PRN
[2017-10-10] MEDS ORDERED: PROCHLORPERAZINE INJ 5 MG in SYRINGE 4 ML IV PRN
[2017-10-10] MEDS ORDERED: HYDROmorphone INJ 0.5 MG/0.5 ML SYR IV PRN
[2017-10-10] MEDS ORDERED: NITROGLYCERIN 0.4 MG SL PER TAB CHARGE SL PRN
[2017-10-10] MEDS ORDERED: TRAMADOL HCL 50 MG TAB PO PRN
[2017-10-10] MEDS ORDERED: LEVALBUTEROL/IPRATROPIUM NEB INH PRN
[2017-10-10] MEDS ORDERED: TRAZODONE HCL 50 MG TAB PO STA (00:14)
[2017-10-10] MEDS ORDERED: METOPROLOL TARTRATE 50 MG TAB PO STA (00:16)
[2017-10-10] MEDS ORDERED: LEVALBUTEROL 1.25MG/0.5ML NEB INH STA (00:17)
[2017-10-10] MEDS ORDERED: IPRATROPIUM BROMIDE NEB SOLN 0.02% 2.5 ML VIAL INH STA (00:17)
[2017-10-10] MEDS ORDERED: GABAPENTIN 100 MG CAP PO STA (00:18)
[2017-10-10] MEDS ORDERED: IPRATROPIUM BROMIDE NEB SOLN 0.02% 2.5 ML VIAL INH PRN (00:30)
[2017-10-10] MEDS ORDERED: LEVALBUTEROL 1.25MG/0.5ML NEB INH PRN (00:30)
--- NOTE | 2017-10-10 01:37 | EMERGENCY ROOM VISIT NOTE ---
History Report prepared by Katiana: Rhiannon Short Under the Supervision of: Dr. Manjit eYh D.O. First contact with patient: 19:13 Chief Complaint: OTHER COMPLAINT Stated Complaint: FLUID BUILD UP-REF BY History of Present Illness The patient is a 77 year old female who presents to the Emergency Room with complaints of worsening build-up of fluid starting a week ago. The patient states that she saw a manager of project management last week who set her up with a vascular surgeon since her kidneys are shutting down. She states that she was supposed to go next for a scan and get a fistula placed. She reports that she had a cardiac appointment this morning and said she was full of fluid. The patient reports that her director community health nursing told her to come to the ED to be admitted to the hospital. The patient complains of loss of appetite. Source of History: patient Onset: a week ago Position: other (global) Quality: other (build-up) Timing: worsening Note: The patient complains of loss of appetite. Review of Systems See HPI for pertinent positives & negatives. A total of 10 systems reviewed and were otherwise negative. Past Medical & Surgical Medical Problems: (1) Atrial fibrillation (2) Chest pain (3) CHF exacerbation (4) CKD (chronic kidney disease), stage IV (5) Dyslipidemia (6) Gout (7) HTN (hypertension) (8) Hypothyroidism (9) Left atrial thrombus (10) Osteoporosis (11) Rheumatic heart disease (12) Spinal stenosis Surgical Problems: (1) H/O aortic valve replacement (2) H/O mitral valve replacement (3) History of hysterectomy (4) Hx of thyroidectomy (5) Status post total hip replacement, left (6) Status post total hip replacement, right Family History Stroke MOTHER Social History Smoking Status: Current Every Day Smoker Housing Status: lives with family Occupation Status: retired Current/Historical Medications Scheduled Allopurinol (Zyloprim), 100 MG PO DAILY Calcitriol (Rocaltrol Cap), 1 CAP PO 2XWK Cyanocobalamin (Vitamin B-12 1000 Mcg), 1 TAB PO DAILY Folic Acid (Folic Acid), 1 MG PO DAILY Furosemide (Lasix), 40 MG PO UD Gabapentin (Neurontin), 100 MG PO HS Hydralazine Hcl (Apresoline), 1 TAB PO TID Iron-Vitamin C (Vitron-C), 1 TAB PO DAILY Isosorbide Mononitrate Ext Rel (Imdur Ext Rel), 60 MG PO QAM Levothyroxine Sodium (Synthroid), 25 MCG PO DAILY Metoprolol Tartrate (Lopressor), 50 MG PO BID Pantoprazole (Protonix), 40 MG PO BID Ranitidine (Zantac), 300 MG PO HS Trazodone Hcl (Trazodone), 50 MG PO HS Warfarin Sod (Coumadin), 5 MG PO UD Scheduled PRN Montelukast Sodium (Montelukast Sodium), 1 TAB PO DAILY PRN for allergies Nitroglycerin (Nitrostat), 0.4 MG SL UD PRN for Chest Pain Allergies Coded Allergies: No Known Allergies (Unverified , 03/27/12) Physical Exam Vital Signs Date Time Temp Pulse Resp B/P (MAP) Pulse Ox O2 Delivery O2 Flow Rate FiO2 10/10/17 00:31 85 20 136/70 94 Room Air 10/09/17 23:05 92 10/09/17 22:32 70 147/66 93 Room Air 10/09/17 21:01 66 23 137/70 93 Room Air 10/09/17 19:41 68 10/09/17 19:35 92 Room Air 10/09/17 19:25 70 16 148/69 92 Room Air 10/09/17 16:38 36.7 118 20 129/65 99 Room Air Physical Exam CONSTITUTIONAL/VITAL SIGNS: Reviewed / noted above. GENERAL: Non-toxic in appearance. INTEGUMENTARY: Warm, dry, and [place]. HEAD: Normocephalic. EYES: without scleral icterus or trauma. ENT/OROPHARYNX: clear and moist. LYMPHADENOPATHY/NECK: Is supple without lymphadenopathy or meningismus. Positive JVD. RESPIRATORY: Lungs clear and equal. Diminished breath sounds in the bases bilaterally. CARDIOVASCULAR: Regular rate and rhythm. GI/ABDOMEN: Soft and nontender. No organomegaly or pulsatile mass. No rebound or guarding. Normal bowel sounds. EXTREMITIES: Warm and well perfused. Bilateral lower extremity edema. BACK: No CVA tenderness. NEUROLOGICAL: Intact without focal deficits. PSYCHIATRIC: normal affect. MUSCULOSKELETAL: Normally developed with good muscle tone. Medical Decision & Procedures ER Provider Diagnostic Interpretation: Radiology results as stated below per my review and radiologist interpretation: SINGLE VIEW CHEST CLINICAL HISTORY: Dyspnea. FINDINGS: An AP, portable, upright chest radiograph is compared to study dated 06/09/2017. The examination is degraded by portable technique and patient rotation. The patient is status post midline sternotomy and cardiac valve surgery. The heart is enlarged and there is atherosclerotic calcification of the thoracic aorta. There is pulmonary vascular congestion and interstitial edema. Trace pleural effusions are identified. Bibasilar atelectasis is noted. No pneumothorax is seen. The skeletal structures are osteopenic. The bony thorax is grossly intact. IMPRESSION: 1. Cardiomegaly with evidence of congestive failure and interstitial edema. 2. Trace pleural effusions. Electronically signed by: Rell Butler M.D. 10/09/2017 8:07 PM Dictated Date/Time: 10/09/2017 8:06 PM Laboratory Results 10/09/17 19:30 Red Blood Count 3.11, Mean Corpuscular Volume 108.4, Mean Corpuscular Hemoglobin 35.4, Mean Corpuscular Hemoglobin Concent 32.6, Mean Platelet Volume 10.1, Neutrophils (%) (Auto) 72.3, Lymphocytes (%) (Auto) 12.4, Monocytes (%) ( Auto) 11.4, Eosinophils (%) (Auto) 3.4, Basophils (%) (Auto) 0.3, Neutrophils # (Auto) 4.19, Lymphocytes # (Auto) 0.72, Monocytes # (Auto) 0.66, Eosinophils # ( Auto) 0.20, Basophils # (Auto) 0.02 10/09/17 19:30 Test 10/09/17 19:30 White Blood Count 5.80 K/uL (4.8-10.8) Red Blood Count 3.11 M/uL (4.2-5.4) Hemoglobin 11.0 g/dL (12.0-16.0) Hematocrit 33.7 % (37-47) Mean Corpuscular Volume 108.4 fL (80-100) Mean Corpuscular Hemoglobin 35.4 pg (25-34) Mean Corpuscular Hemoglobin Concent 32.6 g/dl (32-36) Platelet Count 206 K/uL (130-400) Mean Platelet Volume 10.1 fL (7.4-10.4) Neutrophils (%) (Auto) 72.3 % Lymphocytes (%) (Auto) 12.4 % Monocytes (%) (Auto) 11.4 % Eosinophils (%) (Auto) 3.4 % Basophils (%) (Auto) 0.3 % Neutrophils # (Auto) 4.19 K/uL (1.4-6.5) Lymphocytes # (Auto) 0.72 K/uL (1.2-3.4) Monocytes # (Auto) 0.66 K/uL (0.11-0.59) Eosinophils # (Auto) 0.20 K/uL (0-0.5) Basophils # (Auto) 0.02 K/uL (0-0.2) RDW Standard Deviation 61.1 fL (36.4-46.3) RDW Coefficient of Variation 15.5 % (11.5-14.5) Immature Granulocyte % (Auto) 0.2 % Immature Granulocyte # (Auto) 0.01 K/uL (0.00-0.02) Prothrombin Time 31.4 SECONDS (9.0-12.0) Prothromb Time International Ratio 3.1 (0.9-1.1) Activated Partial Thromboplast Time 40.6 SECONDS (21.0-31.0) Partial Thromboplastin Ratio 1.6 Anion Gap 7.0 mmol/L (3-11) Est Creatinine Clear Calc Drug Dose 12.7 ml/min Estimated GFR () 17.2 Estimated GFR (Non- 14.8 BUN/Creatinine Ratio 19.5 (10-20) Calcium Level 8.7 mg/dl (8.5-10.1) Magnesium Level 2.0 mg/dl (1.8-2.4) Total Bilirubin 0.8 mg/dl (0.2-1) Aspartate Amino Transf (AST/SGOT) 16 U/L (15-37) Alanine Aminotransferase (ALT/SGPT) 12 U/L (12-78) Alkaline Phosphatase 76 U/L (45-117) Total Creatine Kinase 35 U/L (26-192) Creatine Kinase MB 1.6 ng/ml (0.5-3.6) Creatine Kinase MB Ratio 4.6 (0-3.0) Troponin I 0.034 ng/ml (0-0.045) Pro-B-Type Natriuretic Peptide 15662 pg/ml (0-1800) Total Protein 7.7 gm/dl (6.4-8.2) Albumin 3.2 gm/dl (3.4-5.0) Globulin 4.5 gm/dl (2.5-4.0) Albumin/Globulin Ratio 0.7 (0.9-2) Laboratory results as stated above per my review. Medications Administered Medications (Trade) Dose Ordered Sig/Shana Route Start Time Stop Time Status Last Admin Dose Admin Potassium Chloride (Klor-Con M10) 60 meq NOW STAT PO 10/09/17 22:09 10/09/17 22:20 DC 10/09/17 22:32 60 MEQ Furosemide (Lasix Inj) 80 mg ONE STAT IV 10/09/17 22:27 10/09/17 22:28 DC 10/09/17 22:31 80 MG ECG Indication: weakness Rate (beats per minute): 68 Rhythm: atrial fibrillation Findings: no acute ischemic change, no ectopy ED Course 1914: Previous medical records were reviewed. The patient was evaluated in room B7. A complete history and physical examination was performed. 2147: Discussed the patient's case with Dr. Zenon Carlos. The patient will be evaluated for further treatment and disposition. 2208: Patient's electrocardiogram interpreted by me. Medical Decision the differential was considered includes acute myocardial infarction, acute coronary syndrome, myocarditis, pericarditis, pericardial effusions /tamponade, esophageal perforation, pulmonary embolism, pneumonia, pneumothorax, cardiomyopathy, congestive heart, anemia , COPD/asthma exacerbation. This is a 77-year-old male who presents to the ED with a chief complaint of lower extremity edema. The patient was sent here by Jorge Myers, from cardiology, to be admitted for congestive heart failure. The patient also reportedly had a creatinine of 3.6 last week. Her physical exam was noted above. Additional history as noted above. Blood work reveals an unremarkable CBC. INR is 3.1. BUN is 57 and creatinine is 2.97. Potassium was 2.9. Baseline creatinine is around 2.6. Chest x-ray reveals some congestive heart failure changes. I spoke with the hospice about the patient. The patient will be seen by the hospitalist for further inpatient evaluation and care. Medication Reconcilliation Current Medication List: was personally reviewed by me Blood Pressure Screening Patient's blood pressure: Normal blood pressure Blood pressure disposition: Did not require urgent referral Consults Time Called: 2139 Consulting Physician: Dr. Zenon Carlos Returned Call: 2147 Discussed the patient's case with Dr. Zenon Carlos. The patient will be evaluated for further treatment and disposition. Impression Primary Impression: CHF (congestive heart failure) Scribe Attestation The scribe's documentation has been prepared under my direction and personally reviewed by me in its entirety. I confirm that the note above accurately reflects all work, treatment, procedures, and medical decision making performed by me. Departure Information Dispostion Being Evaluated By Hospitalist Referrals Lana Aguillon M.D. (PCP) Patient Instructions My [facility]
--- NOTE | 2017-10-10 04:08 | HISTORY & PHYSICAL EXAMINATION ---
DATE OF ADMISSION: 10/09/2017 PRIMARY CARE DOCTOR: Lana Aguillon MD. CHIEF COMPLAINT: Shortness of breath. HISTORY OF PRESENT ILLNESS: History obtained from patient, records, daughter. Medical history significant for chronic diastolic heart failure, EF of 60-65%, rheumatic heart disease status post mechanical AVR, MVR on Coumadin, hypertension, COPD, ongoing tobacco abuse, hypertension, hyperlipidemia, CRI (baseline creatinine of 2.6). Recent confinement last May 2017 for decompensated heart failure. In the last few days patient noted feeling weak, increasing shortness of breath. Fluid retention, increased bilateral leg swelling despite compliance with home Lasix. Stable weight as per patient. Denies dietary indiscretion. Substernal/epigastric discomfort, achy with some relief with nitroglycerin. No new cough symptoms. Outpatient creatinine 10/02/2017 was noted to be 3.6. Patient saw [facility] [place] [place] [facility] today who sent her to the Emergency Room for evaluation. MEDICAL HISTORY: As above. A 2D echo from May 2017 showed EF of 60-65%, LVH, normal aortic valve and mitral valve function, moderate TR. SURGERIES: He has had AVR, MVR, hip replacement, thyroidectomy and hysterectomy. HOME MEDICATIONS: Include Zyloprim, calcitriol, vitamin B12, Lasix, folic acid, gabapentin, hydralazine, Vytorin, Imdur, Synthroid, Lopressor, montelukast, Protonix, Zantac, trazodone, Coumadin. ALLERGIES: No known drug allergies. FAMILY HISTORY: Stroke, dementia. PERSONAL AND SOCIAL HISTORY: Half pack daily. No chronic intake of alcoholic beverages. 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 REVIEW OF SYSTEMS: As per HPI, all 10 systems reviewed. All other ROS negative. PHYSICAL EXAMINATION: VITAL SIGNS: Blood pressure was noted to be 148/69, pulse rate 70, RR 23, temperature 36.7, sats 92 on room air. GENERAL: Noted to be slightly anxious, minimal respiratory distress, occasionally speaks in phrases. SKIN: Warm. Pallor. HEENT: Pale palpebral conjunctivae. No ptosis. Dry mucosa. NECK: Short neck. No tenderness. LUNGS: Decreased breath sounds. No tenderness. Healed sternal scar. HEART: JVD noted. Irregular, systolic murmur. ABDOMEN: Some distension, nontender. EXTREMITIES: Minimal LE edema, no tenderness. No other gross deformity. NEUROLOGIC: Coherent. No gross focality. LABORATORY DATA: Hemoglobin was noted to be 11, hematocrit 33.7, white cell count 5.8, platelets of 206. Sodium 136, potassium 2.9, chloride 105, CO2 27, BUN 67, creatinine 2.9, glucose 112. INR 3.1. Chest x-ray showed congestion, trace pleural effusions EKG as per my interpretation, rate 70, AFib, some flattening in the lateral leads; artifacts noted ASSESSMENT: 1. Decompensated heart failure in the setting of ARF on CRI cardio-renal syndrome 2. History of rheumatic heart disease, status post AVR, MVR on Coumadin. INR therapeutic. 3. Hypertension, stable. 4. AF rate controlled, INR therapeutic 5. Hypokalemia secondary to home diuretic therapy 6. Chronic anemia secondary CKD, hemoglobin baseline. 7. Chronic obstructive pulmonary disease, ongoing tobacco abuse. px w/ chronic smoker's cough symptoms. PLAN: PCU. Lasix dosed for renal function. Monitor renal function. Follow-up chest x-ray in the morning to guide further diuretic dosing. Continue home beta ida Strict IOs, daily weights, CHF education Cardiology consultation RE decompensated heart failure. Nephrology consult for ARF on CRI. Replace K Nicotine patch. DVT prophylaxis, Coumadin. INR 2.5-3.5. Full code. MTDD
[2017-10-10] MEDS: LEVOTHYROXINE 25 MCG TAB PO SCH (05:12)
[2017-10-10 06:33] LABS: BASO % 0.4 %; BASO ABS # 0.02 K/uL (0-0.2); EOS % 5.1 %; EOS ABS # 0.27 K/uL (0-0.5); HEMATOCRIT 31.4 % (37-47); HEMOGLOBIN 9.9 g/dL (12.0-16.0); IG# 0.01 K/uL (0.00-0.02); LYMPH % 11.5 %; LYMPH ABS # 0.61 K/uL (1.2-3.4); MEAN CELL VOLUME 109.8 fL (80-100); MEAN CORPUSCULAR HEMOGLOBIN 34.6 pg (25-34); MEAN CORPUSCULAR HGB CONC 31.5 g/dl (32-36); MEAN PLATELET VOLUME 10.1 fL (7.4-10.4); MONO % 14.5 %; MONO ABS # 0.77 K/uL (0.11-0.59); NEUT % 68.3 %; NEUT ABS # 3.64 K/uL (1.4-6.5); PLATELET COUNT 175 K/uL (130-400); RED CELL DISTRIBUTION WIDTH CV 15.6 % (11.5-14.5); RED CELL DISTRIBUTION WIDTH SD 62.3 fL (36.4-46.3); WHITE BLOOD COUNT 5.32 K/uL (4.8-10.8)
[2017-10-10 06:40] LABS: INR 2.6 (0.9-1.1)
[2017-10-10 07:00] LABS: CALCIUM 8.9 mg/dl (8.5-10.1); CREATININE 2.45 mg/dl (0.60-1.20); POTASSIUM 4.5 mmol/L (3.5-5.1)
--- NOTE | 2017-10-10 07:07 | DIAGNOSTIC IMAGING REPORT ---
CHEST ONE VIEW PORTABLE CLINICAL HISTORY: Ingested failure COMPARISON STUDY: 10/09/2017 FINDINGS: The heart remains enlarged. There are postsurgical changes of midline sternotomy and valvular replacement. There is mild congestive failure similar to the preceding study. There are small bilateral pleural effusions. There is no focal pulmonary consolidation.[ IMPRESSION: Persistent cardiomegaly with mild congestive failure/interstitial edema. Small pleural effusions. Electronically signed by: Oziel Morelos M.D. 10/10/2017 7:05 AM Dictated Date/Time: 10/10/2017 7:04 AM
--- NOTE | 2017-10-10 07:27 | NEPHROLOGY CONSULTATION ---
DATE OF CONSULTATION: 10/10/2017 ATTENDING OF RECORD: Crispin Yarbrough MD REASON FOR CONSULTATION: Volume overload with CKD. HISTORY OF PRESENT ILLNESS: This is a 77-year-old female who follows with me in outpatient clinic with CKD stage IV with 1.5 grams of proteinuria from advanced age, tobacco abuse, valvular disease and hypertension with worsening kidney function. She does have significant cardiac history with history of rheumatic heart disease with a mechanical aortic and mitral valves on Coumadin. Also with underlying atrial fibrillation and hypertension. Smokes about a pack every 3 days and has underlying COPD. Also with gout on allopurinol. Avoids NSAIDs, is not a diabetic and has been dealing with intermittent and worsening swelling. The patient's last visit with me had a creatinine up to 3.6 and at that point I explained to her that she is very close to needing to start dialysis and would repeat labs again next week and to go to the ER if there is excessive fatigue, nausea, vomiting, metallic taste to foods or continued worsening shortness of breath. At the time when I saw her on the , the patient was tired with decreased appetite, diarrhea with abdominal bloating, however her edema was just mild and plan was to refer to a vascular surgeon and to recommend that she go to an outpatient dialysis unit for a tour. The patient presented yesterday to cardiology and was tired and having a worsening fluid retention despite increase in the dose of Lasix secondary to the volume overload with significant worsening kidney function. Cardiology recommended coming to the Emergency Room for possible admission and initiation of dialysis. PAST MEDICAL HISTORY: CKD stage IV, hypertension, history of rheumatic heart disease, atrial fibrillation, gout, hypothyroidism, osteoporosis and tobacco abuse. PAST SURGICAL HISTORY: Thyroidectomy, hysterectomy, left total hip replacement, valve replacements. FAMILY HISTORY: Significant for mother with stroke. SOCIAL HISTORY: , active smoker, positive for glass of wine daily. No drugs. Lives at home with . REVIEW OF SYSTEMS: No significant change in weight. Positive fatigue. No fevers or chills. No headaches. Positive shortness of breath. Positive edema. No chest pain. Positive abdominal pain with bloating, decreased appetite and decreased urination. Positive worsening leg swelling, chronic pain. No rash or itching. CURRENT MEDICATIONS: Neurontin 100 mg at night, trazodone 50 mg at night, Zantac 300 mg at night, allopurinol 100 mg daily, vitamin B12 1000 mcg daily, folic acid 1 mg daily, hydralazine 50 mg p.o. t.i.d., Imdur 60 mg daily, Lopressor 50 mg p.o. b.i.d., Singulair 10 mg daily, Protonix 40 mg p.o. b.i.d., Nicoderm 1 patch daily, levothyroxine 25 mcg daily. PHYSICAL EXAMINATION: VITAL SIGNS: Temperature 36.6, pulse 81, respiratory rate 18, blood pressure 133/67, sating 96% on 2 liters. GENERAL: Awake, alert, oriented x3. EYES: No scleral icterus. ENT: Moist mucous membranes. NECK: Supple. PULMONARY: Positive wheeze. CARDIAC: Regular rate and rhythm. ABDOMEN: Bowel sounds positive, soft, nontender. EXTREMITIES: +1 to 2 pitting edema. NEUROLOGICALLY: Nonfocal. DERMATOLOGIC: No rash or ulcers noted. EXAMINATION: From yesterday, white count 5.8, H&H 11 and 33, platelet count is 206. Sodium level is 139, potassium 2.9, chloride is 105, bicarbonate is 27, BUN is 57, creatinine is 2.93 with a GFR 14.8, calcium of 8.7, mag of 2. ProBNP of 13,000. Albumin of 3.2. INR was 3.1. Chest x-ray shows cardiomegaly with evidence of congestive failure and interstitial edema with trace pleural effusions. ASSESSMENT AND PLAN: The patient with underlying chronic kidney disease stage IV, who was close to needing dialysis with a creatinine of 3.6 on the and comes back and now with a creatinine of 2.9, which is better; however, patient is significantly volume overloaded. Likely will need dialysis; however, based on GFR of 14.8, would like to attempt high dose Lasix 80 IV t.i.d. and see how her volume status handles the higher dose of Lasix. Likely will need dialysis, but would like to first attempt IV Lasix and follow labs. If creatinine continues to worsen and the patient continues to exhibit uremic symptoms, would consider initiation of a tunneled dialysis catheter with dialysis initiation likely early this upcoming week if IV Lasix does not improve the situation. Appreciate consultation.
[2017-10-10] MEDS: NICOTINE 14 MG/24 HR TDSY TD SCH (09:00)
[2017-10-10] MEDS: FUROSEMIDE INJ 80 MG in SYRINGE 0 ML IV SCH ×3 (09:00→19:48)
[2017-10-10] MEDS: METOPROLOL TARTRATE 50 MG TAB PO SCH ×2 (09:37→19:49)
[2017-10-10] MEDS: PANTOprazole SOD 40 MG TAB PO SCH ×2 (09:37→19:50)
[2017-10-10] MEDS: ISOSORBIDE MONONITRATE 60 MG TABCR PO SCH (09:38)
[2017-10-10] MEDS: ALLOPURINOL 100 MG TAB PO SCH (09:38)
[2017-10-10] MEDS: CYANOCOBALAMIN 500 MCG TAB (VIT B-12) PO SCH (09:38)
[2017-10-10] MEDS: MONTELUKAST SOD 10 MG TAB PO SCH (09:38)
--- NOTE | 2017-10-10 14:10 | Progress Note ---
Medicine Progress Note Date & Time of Visit: Oct 10, 2017 at 13:02. Subjective Pt was seen and examined Lying in bed with no distress Pt said that she feels slightly better She said that she continues to have SOB with minimal exertion She said that she is having a productive cough Denies any chest pain, palpitation, dizziness and fever Objective Last 8 Hrs Date Time Temp Pulse Resp B/P (MAP) Pulse Ox O2 Delivery O2 Flow Rate FiO2 10/10/17 12:04 95 Room Air 2.0 10/10/17 11:10 36.5 72 16 121/68 (85) 95 Room Air 10/10/17 08:00 Nasal Cannula 2.0 10/10/17 07:34 36.7 69 16 137/69 (91) 94 Nasal Cannula 2.0 Physical Exam: General- No acute distress Head- atraumatic Eyes- PERRL, EOMI ENT- oropharynx clear Neck- supple, no JVD Lungs- Coarse BS Heart- regular rhythm Abdomen- normal bowel sounds, soft Extremities- no calf tenderness Neuro- alert, oriented, PERRL, EOMI Skin- warm & dry Laboratory Results: Last 24 Hours Test 10/09/17 19:30 10/10/17 05:55 White Blood Count 5.80 K/uL 5.32 K/uL Red Blood Count 3.11 M/uL 2.86 M/uL Hemoglobin 11.0 g/dL 9.9 g/dL Hematocrit 33.7 % 31.4 % Mean Corpuscular Volume 108.4 fL 109.8 fL Mean Corpuscular Hemoglobin 35.4 pg 34.6 pg Mean Corpuscular Hemoglobin Concent 32.6 g/dl 31.5 g/dl Platelet Count 206 K/uL 175 K/uL Mean Platelet Volume 10.1 fL 10.1 fL Neutrophils (%) (Auto) 72.3 % 68.3 % Lymphocytes (%) (Auto) 12.4 % 11.5 % Monocytes (%) (Auto) 11.4 % 14.5 % Eosinophils (%) (Auto) 3.4 % 5.1 % Basophils (%) (Auto) 0.3 % 0.4 % Neutrophils # (Auto) 4.19 K/uL 3.64 K/uL Lymphocytes # (Auto) 0.72 K/uL 0.61 K/uL Monocytes # (Auto) 0.66 K/uL 0.77 K/uL Eosinophils # (Auto) 0.20 K/uL 0.27 K/uL Basophils # (Auto) 0.02 K/uL 0.02 K/uL RDW Standard Deviation 61.1 fL 62.3 fL RDW Coefficient of Variation 15.5 % 15.6 % Immature Granulocyte % (Auto) 0.2 % 0.2 % Immature Granulocyte # (Auto) 0.01 K/uL 0.01 K/uL Prothrombin Time 31.4 SECONDS 26.8 SECONDS Prothromb Time International Ratio 3.1 2.6 Activated Partial Thromboplast Time 40.6 SECONDS Partial Thromboplastin Ratio 1.6 Sodium Level 139 mmol/L 143 mmol/L Potassium Level 2.9 mmol/L 4.5 mmol/L Chloride Level 105 mmol/L 107 mmol/L Carbon Dioxide Level 27 mmol/L 29 mmol/L Anion Gap 7.0 mmol/L 7.0 mmol/L Blood Urea Nitrogen 57 mg/dl 57 mg/dl Creatinine 2.93 mg/dl 2.45 mg/dl Est Creatinine Clear Calc Drug Dose 12.7 ml/min 15.2 ml/min Estimated GFR () 17.2 21.3 Estimated GFR (Non- 14.8 18.4 BUN/Creatinine Ratio 19.5 23.1 Random Glucose 112 mg/dl 88 mg/dl Calcium Level 8.7 mg/dl 8.9 mg/dl Magnesium Level 2.0 mg/dl Total Bilirubin 0.8 mg/dl Aspartate Amino Transf (AST/SGOT) 16 U/L Alanine Aminotransferase (ALT/SGPT) 12 U/L Alkaline Phosphatase 76 U/L Total Creatine Kinase 35 U/L Creatine Kinase MB 1.6 ng/ml Creatine Kinase MB Ratio 4.6 Troponin I 0.034 ng/ml 0.043 ng/ml Pro-B-Type Natriuretic Peptide 42483 pg/ml Total Protein 7.7 gm/dl Albumin 3.2 gm/dl Globulin 4.5 gm/dl Albumin/Globulin Ratio 0.7 Date/Time Source Procedure Growth Status 10/10/17 09:10 Stool C.difficile Toxin B Gene (PCR) - Final No C. difficile toxin B gene detected Complete Assessment & Plan Acute diastolic heart failure CXR on admission showed cardiomegaly with evidence of congestive failure and interstitial edema. Pro- BNP 12K troponinx2 set negative Starting on IV lasix 80 mg TID Will start on 1.5 liter fluid restriction Monitor kidney function If creatine worsening or does not respond with diuretic, will consider dialysis Echo pending Cardiology on board nephro on board for the diuretic management Continue monitor in tele CKD stage 4 creatine 2.9 on admission creatine today 2.4 creatine was 3.6 about 1 week ago Volume overload on admission Continue lasix 80mg IV TID Nephrology on board If showed signs of uremic, nephro will start her on HD History of rheumatic heart disease status post AVR, MVR on Coumadin INR 2.6 today continue coumadin Hypertension Stable AFib Rate is controlled Continue coumadin Monitor INR Chronic anemia Due to CKD Hbg 9.9 Continue monitor CBC Chronic obstructive pulmonary disease CXR showed no infiltrate Continue neb treatment Not on any maintenance med for CODP Consider anticholinergic/LABA Tobacco abuse Counseling on smoking cessation Hypokalemia K stable Monitor BMP DVT px on coumadin INR 2.6 CODE STATUS FULL CODE Consultants: Cardio Nephro Current Inpatient Medications: Current Inpatient Medications Medications (Trade) Dose Ordered Sig/Shana Route Start Time Stop Time Status Last Admin Dose Admin Acetaminophen (Tylenol Tab) 650 mg Q4H PRN PO 10/10/17 00:00 11/09/17 00:00 Nitroglycerin (Nitrostat Tab) 0.4 mg UD PRN SL 10/10/17 00:00 11/09/17 00:00 Hydromorphone HCl (Dilaudid Inj) 0.5 mg Q3H PRN IV 10/10/17 00:00 10/24/17 00:00 Tramadol HCl (Ultram Tab) 25 mg Q6H PRN PO 10/10/17 00:00 11/09/17 00:00 Prochlorperazine Edisylate 5 mg/ Syringe 5 ml @ 5 mls/min Q6H PRN IV 10/10/17 00:00 11/09/17 00:00 Allopurinol (Zyloprim Tab) 100 mg DAILY PO 10/10/17 09:00 11/09/17 08:59 10/10/17 09:38 100 MG Cyanocobalamin (Vitamin B-12 Tab) 1,000 mcg DAILY PO 10/10/17 09:00 11/09/17 08:59 10/10/17 09:38 1,000 MCG Folic Acid (Folvite Tab) 1 mg DAILY PO 10/10/17 09:00 11/09/17 08:59 10/10/17 09:38 1 MG Gabapentin (Neurontin Cap) 100 mg HS PO 10/10/17 21:00 11/09/17 20:59 Hydralazine HCl (Apresoline Tab) 50 mg TID PO 10/10/17 09:00 11/09/17 08:59 10/10/17 09:38 50 MG Isosorbide Mononitrate (Imdur Ext Rel Tab) 60 mg QAM PO 10/10/17 09:00 11/09/17 08:59 10/10/17 09:38 60 MG Levothyroxine Sodium (Synthroid Tab) 25 mcg DAILYBB PO 10/10/17 06:00 11/09/17 05:59 10/10/17 05:12 25 MCG Metoprolol Tartrate (Lopressor Tab) 50 mg BID PO 10/10/17 09:00 11/09/17 08:59 10/10/17 09:37 50 MG Montelukast Sodium (Singulair Tab) 10 mg DAILY PO 10/10/17 09:00 11/09/17 08:59 10/10/17 09:38 10 MG Pantoprazole Sodium (Protonix Tab) 40 mg BID PO 10/10/17 09:00 11/09/17 08:59 10/10/17 09:37 40 MG Trazodone HCl (Desyrel Tab) 50 mg HS PO 10/10/17 21:00 11/09/17 20:59 Nicotine (Nicoderm Cq 14MG Patch) 1 patch QAM TD 10/10/17 09:00 11/09/17 08:59 Miscellaneous (Remove Nicoderm Patch) 1 ea HS N/A 10/10/17 21:00 11/09/17 20:59 Ipratropium [place] (Atrovent 0.02% 0.5MG/2.5ML Neb) 0.5 mg Q4H PRN INH 10/10/17 00:30 11/09/17 00:29 Levalbuterol (Xopenex 1.25MG/ 0.5ML Neb) 1.25 mg Q4H PRN INH 10/10/17 00:30 11/09/17 00:29 Ranitidine HCl (zANTac TAB) 300 mg HS PO 10/10/17 21:00 11/09/17 20:59 Furosemide 80 mg/ Syringe 8 ml @ 4 mls/min TID IV 10/10/17 09:00 11/09/17 08:59 10/10/17 09:00 4 MLS/MIN
[2017-10-10] MEDS ORDERED: LOPERAMIDE HCL 2 MG CAP PO ONE (14:45)
[2017-10-10] MEDS: WARFARIN SOD 5 MG TAB PO SCH (16:35)
--- NOTE | 2017-10-10 16:41 | Cardiology Consultation ---
Cardiology Consultation Date of Service Oct 10, 2017. Cardiology Consultation Ana María Goodson is a 77 year old female here old female with complex history, well known to [facility] for history of mechanical aortic and mitral valve replacement in 1996 secondary to rheumatic heart disease, chronic afib, chronic anticoagulation, with chronic diastolic HF difficult to manage with worsening end stage renal disease. She was evaluated in the cardiology office yesterday with concerns regarding worsening SOB, LE edema, cough and abdominal bloating, despite up titration of oral diuretics. She was referred to ER for evaluation. Started on aggressive IV diuresis, following with nephrology. At time of consult, patient feeling ok. Notes mild improvement in LE edema since admission. Still with course rhonchi/cough and sputum production. Still with SOB at baseline. no chest pain. Renal function stable. Did not sleep well due to cough. Denies dizziness, syncope or near syncope. Last admission was to [facility] 06/10/2017 to 06/12/2017 with chest pain felt to be in association with acute decompensated diastolic congestive heart failure as well as symptomatic anemia. She was diuresed with two doses of IV furosemide with prompt improvement. EGD with gastritis. Hgb on 06/11 was 7.6 g/dL, received 2 U PRBC's on 06/11/2017 without complication. Multiple medication changes were made on discharge including adjustment in her diuretics, titration of Metoprolol and Imdur for blood pressure and antianginal benefit, and the addition of oral iron replacement therapy and folic acid added given observed iron deficiency and suspect valvular hemolysis. Aspirin was discontinued secondary to the gastritis. She requires lifelong Coumadin anticoagulation due to the mechanical aortic and mitral valves, chronic atrial fibrillation, left atrial thrombus. Problem List: 1. Rheumatic valvular heart disease. 2. S/P aortic and mitral valve replacement April 01, 1997 with 27 mm Rehman Medtronic mitral valve mechanical prosthesis and a 23 mm Carbomedic aortic valve replacement. 2. Chronic Coumadin anticoagulation. INR goal 2.5 to 3.5 3. Chronic atrial fibrillation. 2. Chronic obstructive lung disease with chronic tobacco use 3. Hypertension. 4. Hyperlipidemia. 5. 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 Z79.01 ADVANCE DIRECTIVE INFORMATION Atrial fibrillation (HCC) I48.91 Dyslipidemia, goal LDL below 70 E78.5 Osteoporosis M81.0 Hypothyroidism E03.9 Kidney disease, chronic, stage IV (GFR 15-29 ml/min) (HCC) N18.4 Gouty arthropathy, chronic, without tophi [id number] 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 Tobacco use disorder F17.200 Cholelithiasis K80.20 Neuropathy G62.9 Tobacco abuse Z72.0 Allergic rhinitis J30.9 Essential hypertension with goal blood pressure less than 140/90 I10 Statin intolerance Z78.9 Persistent insomnia G47.00 Past Medical History: Diagnosis Date Allergic rhinitis Atrial fibrillation (HCC) Degeneration of lumbosacral intervertebral disc Lumbar Spine DJD Dyslipidemia, goal to be determined Gouty arthropathy, chronic, without tophi 06/20/2011 Hypothyroidism Kidney disease, chronic, stage III (GFR 30-59 ml/min) 04/12/2010 custodial (current) use of anticoagulants 04/09/2004 Osteoporosis Rheumatic heart disease 09/24/2002 S/P aortic valve replacement S/P mitral valve replacement Spinal stenosis, unspecified region other than cervical Spinal Stenosis Statin intolerance Tobacco use disorder 08/09/2014 Past Surgical History: Procedure Laterality Date EGD, FLEXIBLE, DIAGNOSTIC 06/11/2017 gastritis/inpt [facility] INFORMATION 1989"s mitral/aortic valve replacement'[facility] IOF-HYSTEROSALPINGOGRAM MOBILE DXA 02/10/2017 Lumbar T -1.9 repeat 3 years OTHER (INFORMATION) 03/30/12 R hip replacement REMOVAL OF THYROID GLAND TOTAL HIP REPLACEMENT & PROSTHESIS left TOTAL HYSTERECTOMY Family History Problem Relation Age of Onset Neurological Disorder Mother cva ,dementia Lung Disorder Father Gastro-intestinal disorder Father Social History: Smoker. Currently 1 pack ever 2-3 days. Occasional glass of wine. . with dementia. Complete Review of Systems: See above. Negative or noncontributory. Review of patient's allergies indicates: Allergen Reactions Amlodipine Besylate Edema Other and Nausea/vomiting Ankle Edema Current Outpatient Prescriptions Medication Sig Dispense Refill allopurinol (ZYLOPRIM) 100 MG Tablet TAKE 1 TABLET BY MOUTH ONCE A DAY 90 Tab 1 isosorbide mononitrate SA (IMDUR) 60 MG TB24 Take 1 Tab by mouth daily. In the morning. 31 Tab 5 folic acid 1 MG Tablet Take 1 Tab by mouth daily. In the morning. 31 Tab 5 Iron-Vitamin C (VITRON-C) 65-125 MG Tablet Take 1 Tab by mouth daily. 31 Tab 5 pantoprazole (PROTONIX) 40 MG TBEC Take 1 Tab by mouth 2 times a day. 64 Tab 5 metoprolol tartrate (LOPRESSOR) 50 MG Tablet 1 tablet in the AM and 1 tablet in the PM 64 Tab 5 traZODone (DESYREL) 50 MG Tablet Take 1 Tab by mouth at bedtime. 90 Tab 1 gabapentin (NEURONTIN) 100 MG Capsule TAKE 1 CAP BY MOUTH AT BEDTIME. 30 Cap 5 montelukast (SINGULAIR) 10 MG Tablet TAKE 1 TABLET BY MOUTH DAILY. FOR ALLERGIES 90 Tab 1 hydrALAZINE (APRESOLINE) 50 MG Tablet TAKE 1 TAB BY MOUTH 3 TIMES A DAY. 90 Tab 5 levothyroxine (LEVOXYL) 25 MCG Tablet TAKE ONE TABLET BY MOUTH ONCE DAILY 90 Tab 1 RaNITidine HCl 300 MG Tablet TAKE 1 TABLET BY MOUTH ONCE A DAY AT BEDTIME 90 Tab 1 calcitriol (ROCALTROL) 0.25 MCG Capsule TAKE 1 CAP BY MOUTH DAILY. (Patient taking differently: take twice weekly) 30 Cap 11 furosemide (LASIX) 40 MG Tablet TAKE 1 TABLET BY MOUTH DAILY (Patient taking differently: No sig reported) 90 Tab 1 Cyanocobalamin (VITAMIN B-12) 1000 MCG Tablet Take 1 Tab by mouth daily. warfarin sodium (COUMADIN) 2.5 MG Tablet TAKE ONE AND ONE HALF TABLETS BY MOUTH DAILY OR DIRECTED BY COUMADIN CLINIC 50 Tab 5 VOLTAREN 1 % TD GEL apply 2 grams four times daily 100 g 5 nitroglycerin (NITROSTAT) 0.4 MG SUBL DISSOLVE ONE TABLET ON TONGUE NEEDED FOR CHEST PAIN 0 PHYSICAL EXAM: Last 8 Hrs Date Time Temp Pulse Resp B/P (MAP) Pulse Ox O2 Delivery O2 Flow Rate FiO2 10/10/17 15:37 95 Room Air 10/10/17 15:32 36.8 88 20 152/77 (102) 91 Room Air 10/10/17 12:04 95 Room Air 2.0 10/10/17 11:10 36.5 72 16 121/68 (85) 95 Room Air General: NAD. A&Ox3. Pale/ashen. HEENT: ~Normocephalic and atraumatic. ~+ JVD. Lungs: ~~Diminished breath sounds all lung perez, bibasilar rales. No wheeze. No rhonchi. Cardiovascular: Irregularly irregular in the 70's. [place] mechanical valve sounds in both the aortic and mitral valve positions. ~Grade II/ systolic ejection murmur. No diastolic murmur. ~No S3 gallop. ~ Abdomen: ~Somewhat first. Distended. No masses. Extremities: ~1+ edema to knees. Varicosities. No clubbing. No cyanosis. Data: EKG: Atrial fibrillation with premature ventricular or aberrantly conducted complexes ST & T wave abnormality, consider anterolateral ischemia Abnormal ECG When compared with ECG of 09-OCT-2017 19:24, (unconfirmed) Criteria for Septal infarct are no longer Present Chest xray, repeat today: IMPRESSION: Persistent cardiomegaly with mild congestive failure/interstitial edema. Small pleural effusions. Last 24 Hours Test 10/09/17 19:30 10/10/17 05:55 White Blood Count 5.80 K/uL 5.32 K/uL Red Blood Count 3.11 M/uL 2.86 M/uL Hemoglobin 11.0 g/dL 9.9 g/dL Hematocrit 33.7 % 31.4 % Mean Corpuscular Volume 108.4 fL 109.8 fL Mean Corpuscular Hemoglobin 35.4 pg 34.6 pg Mean Corpuscular Hemoglobin Concent 32.6 g/dl 31.5 g/dl Platelet Count 206 K/uL 175 K/uL Mean Platelet Volume 10.1 fL 10.1 fL Neutrophils (%) (Auto) 72.3 % 68.3 % Lymphocytes (%) (Auto) 12.4 % 11.5 % Monocytes (%) (Auto) 11.4 % 14.5 % Eosinophils (%) (Auto) 3.4 % 5.1 % Basophils (%) (Auto) 0.3 % 0.4 % Neutrophils # (Auto) 4.19 K/uL 3.64 K/uL Lymphocytes # (Auto) 0.72 K/uL 0.61 K/uL Monocytes # (Auto) 0.66 K/uL 0.77 K/uL Eosinophils # (Auto) 0.20 K/uL 0.27 K/uL Basophils # (Auto) 0.02 K/uL 0.02 K/uL RDW Standard Deviation 61.1 fL 62.3 fL RDW Coefficient of Variation 15.5 % 15.6 % Immature Granulocyte % (Auto) 0.2 % 0.2 % Immature Granulocyte # (Auto) 0.01 K/uL 0.01 K/uL Prothrombin Time 31.4 SECONDS 26.8 SECONDS Prothromb Time International Ratio 3.1 2.6 Activated Partial Thromboplast Time 40.6 SECONDS Partial Thromboplastin Ratio 1.6 Sodium Level 139 mmol/L 143 mmol/L Potassium Level 2.9 mmol/L 4.5 mmol/L Chloride Level 105 mmol/L 107 mmol/L Carbon Dioxide Level 27 mmol/L 29 mmol/L Anion Gap 7.0 mmol/L 7.0 mmol/L Blood Urea Nitrogen 57 mg/dl 57 mg/dl Creatinine 2.93 mg/dl 2.45 mg/dl Est Creatinine Clear Calc Drug Dose 12.7 ml/min 15.2 ml/min Estimated GFR () 17.2 21.3 Estimated GFR (Non- 14.8 18.4 BUN/Creatinine Ratio 19.5 23.1 Random Glucose 112 mg/dl 88 mg/dl Calcium Level 8.7 mg/dl 8.9 mg/dl Magnesium Level 2.0 mg/dl Total Bilirubin 0.8 mg/dl Aspartate Amino Transf (AST/SGOT) 16 U/L Alanine Aminotransferase (ALT/SGPT) 12 U/L Alkaline Phosphatase 76 U/L Total Creatine Kinase 35 U/L Creatine Kinase MB 1.6 ng/ml Creatine Kinase MB Ratio 4.6 Troponin I 0.034 ng/ml 0.043 ng/ml Pro-B-Type Natriuretic Peptide 27878 pg/ml Total Protein 7.7 gm/dl Albumin 3.2 gm/dl Globulin 4.5 gm/dl Albumin/Globulin Ratio 0.7 March 19, 2017 Dobutamine Stress Echo Interpretation Summary: ~Nonischemic to be mean stress echocardiogram. ~No arrhythmias. ~Normal heart rate and blood pressure response to infusion. ~Interpretation as per Dr. Rajan. June 10, 2017 TTE Interpretation Summary ([facility], Dr. Larson): No regional wall motion abnormalities noted. There is mild concentric left ventricular hypertrophy. The LV Ejection Fraction = 60-65%. Normal prosthetic aortic valve and prosthetic mitral valve function within the scope of transthoracic echocardiography. There is moderate tricuspid regurgitation. Doppler findings do not suggest pulmonary hypertension. The LV diastolic function is abnormal based on left atrial enlargement. ASSESSMENT: ~ 1. Acute on chronic heart failure mixed etiology, diastolic/valvular 2. Acute on chronic kidney disease, end stage, nearing dialysis. 3. Rheumatic valvular heart disease. S/P aortic and mitral valve replacement April 01, 1997 with 27 mm Rehman Medtronic mitral valve mechanical prosthesis and a 23 mm Carbomedic aortic valve replacement. 4. Chronic Coumadin anticoagulation. INR goal 2.5 to 3.5 5. Chronic atrial fibrillation. 6. Chronic obstructive lung disease with chronic tobacco use 7. Hypertension. 8. Hyperlipidemia. 9. Anemia PLAN: Appreciate nephrology recommendations. Agree with plan for aggressive diuresis furosemide 80 mg TID. Monitor renal function and electrolytes. If no improvement over the weekend, plan for dialysis catheter on Friday with HD initiation. Continue all other home cardiac medications Goal INR 2.5-3.5 given mechanical AVR. Case discussed with Dr Rajan. Will follow.
[2017-10-10] MEDS: GABAPENTIN 100 MG CAP PO SCH (19:49)
[2017-10-10] MEDS: RANITIDINE HCL 150 MG TAB PO SCH (19:50)
[2017-10-10] MEDS ORDERED: GUAIFENESIN 200 MG TAB PO PRN (20:15)
[2017-10-10] MEDS ORDERED: TRAZODONE HCL 50 MG TAB PO SCH (21:00)
[2017-10-11] VITALS (8 sets, daily range): BP systolic 99–123; BP diastolic 38–73; PULSE 68–84; TEMP 36.6–37.1; O2SAT 77–98
[2017-10-11] MEDS: LEVOTHYROXINE 25 MCG TAB PO SCH (05:35)
[2017-10-11 06:49] LABS: INR 1.9 (0.9-1.1)
[2017-10-11 07:23] LABS: CALCIUM 8.9 mg/dl (8.5-10.1); CREATININE 2.54 mg/dl (0.60-1.20); POTASSIUM 3.5 mmol/L (3.5-5.1)
[2017-10-11] MEDS: CYANOCOBALAMIN 500 MCG TAB (VIT B-12) PO SCH (08:26)
[2017-10-11] MEDS: ISOSORBIDE MONONITRATE 60 MG TABCR PO SCH (08:26)
[2017-10-11] MEDS: PANTOprazole SOD 40 MG TAB PO SCH ×2 (08:26→19:40)
[2017-10-11] MEDS: MONTELUKAST SOD 10 MG TAB PO SCH (08:26)
[2017-10-11] MEDS: FUROSEMIDE INJ 80 MG in SYRINGE 0 ML IV SCH ×3 (08:27→19:37)
[2017-10-11] MEDS: ALLOPURINOL 100 MG TAB PO SCH (08:27)
[2017-10-11] MEDS: NICOTINE 14 MG/24 HR TDSY TD SCH (08:27)
[2017-10-11] MEDS ORDERED: POTASSIUM CHLORIDE 10 MEQ TABCR PO ONE (09:16)
[2017-10-11] MEDS: METOPROLOL TARTRATE 50 MG TAB PO SCH ×2 (10:01→19:39)
[2017-10-11] MEDS: WARFARIN SOD 5 MG TAB PO SCH (16:09)
--- NOTE | 2017-10-11 18:54 | Progress Note ---
Medicine Progress Note Date & Time of Visit: Oct 11, 2017 at 11:50. Subjective Pt was seen and examined Lying in bed with no distress Pt said that she feels better She said that her breathing improved She said that she does not have any diarrhea denies any chest pain, palpitation Objective Last 8 Hrs Date Time Temp Pulse Resp B/P (MAP) Pulse Ox O2 Delivery O2 Flow Rate FiO2 10/11/17 16:00 Nasal Cannula 3.5 10/11/17 15:30 36.7 74 18 111/54 (73) 94 Nasal Cannula 3.5 10/11/17 12:21 37.0 71 16 120/64 (82) 96 Nasal Cannula 4.0 10/11/17 12:00 Nasal Cannula 4.0 Physical Exam: General- No acute distress Head- atraumatic Eyes- PERRL, EOMI ENT- oropharynx clear Neck- supple, no JVD Lungs- Coarse BS Heart- regular rhythm Abdomen- normal bowel sounds, soft Extremities- no calf tenderness Neuro- alert, oriented, PERRL, EOMI Skin- warm & dry Laboratory Results: Last 24 Hours Test 10/11/17 05:56 Prothrombin Time 19.4 SECONDS Prothromb Time International Ratio 1.9 Sodium Level 139 mmol/L Potassium Level 3.5 mmol/L Chloride Level 102 mmol/L Carbon Dioxide Level 32 mmol/L Anion Gap 5.0 mmol/L Blood Urea Nitrogen 55 mg/dl Creatinine 2.54 mg/dl Est Creatinine Clear Calc Drug Dose 14.7 ml/min Estimated GFR () 20.4 Estimated GFR (Non- 17.6 BUN/Creatinine Ratio 21.7 Random Glucose 85 mg/dl Calcium Level 8.9 mg/dl Assessment & Plan Acute diastolic heart failure CXR on admission showed cardiomegaly with evidence of congestive failure and interstitial edema. Pro- BNP 12K troponinx2 set negative Continue IV lasix 80 mg TID t on 1.5 liter fluid restriction Monitor kidney function If creatine worsening or does not respond with diuretic, will consider dialysis Cardiology on board nephrology on board recommended to continue with current management Continue monitor in tele CKD stage 4 creatine 2.9 on admission creatine today 2.5 creatine was 3.6 about 1 week ago Volume overload on admission Continue lasix 80mg IV TID Nephrology on board If showed signs of uremic, nephro will start her on HD History of rheumatic heart disease status post AVR, MVR on Coumadin INR 1.9 today continue coumadin Hypertension Stable AFib Rate is controlled Continue coumadin Monitor INR Chronic anemia Due to CKD Hbg 9.9 Continue monitor CBC Chronic obstructive pulmonary disease CXR showed no infiltrate Continue neb treatment Not on any maintenance med for CODP Consider anticholinergic/LABA Tobacco abuse Counseling on smoking cessation Hypokalemia K stable Monitor BMP DVT px on coumadin INR 1.9 CODE STATUS FULL CODE Consultants: Cardio Nephro Current Inpatient Medications: Current Inpatient Medications Medications (Trade) Dose Ordered Sig/Shana Route Start Time Stop Time Status Last Admin Dose Admin Acetaminophen (Tylenol Tab) 650 mg Q4H PRN PO 10/10/17 00:00 11/09/17 00:00 Nitroglycerin (Nitrostat Tab) 0.4 mg UD PRN SL 10/10/17 00:00 11/09/17 00:00 Hydromorphone HCl (Dilaudid Inj) 0.5 mg Q3H PRN IV 10/10/17 00:00 10/24/17 00:00 Tramadol HCl (Ultram Tab) 25 mg Q6H PRN PO 10/10/17 00:00 11/09/17 00:00 Prochlorperazine Edisylate 5 mg/ Syringe 5 ml @ 5 mls/min Q6H PRN IV 10/10/17 00:00 11/09/17 00:00 Allopurinol (Zyloprim Tab) 100 mg DAILY PO 10/10/17 09:00 11/09/17 08:59 10/11/17 08:27 100 MG Cyanocobalamin (Vitamin B-12 Tab) 1,000 mcg DAILY PO 10/10/17 09:00 11/09/17 08:59 10/11/17 08:26 1,000 MCG Folic Acid (Folvite Tab) 1 mg DAILY PO 10/10/17 09:00 11/09/17 08:59 10/11/17 08:26 1 MG Gabapentin (Neurontin Cap) 100 mg HS PO 10/10/17 21:00 11/09/17 20:59 10/10/17 19:49 100 MG Hydralazine HCl (Apresoline Tab) 50 mg TID PO 10/10/17 09:00 11/09/17 08:59 10/11/17 14:20 50 MG Isosorbide Mononitrate (Imdur Ext Rel Tab) 60 mg QAM PO 10/10/17 09:00 11/09/17 08:59 10/11/17 08:26 60 MG Levothyroxine Sodium (Synthroid Tab) 25 mcg DAILYBB PO 10/10/17 06:00 11/09/17 05:59 10/11/17 05:35 25 MCG Metoprolol Tartrate (Lopressor Tab) 50 mg BID PO 10/10/17 09:00 11/09/17 08:59 10/11/17 10:01 50 MG Montelukast Sodium (Singulair Tab) 10 mg DAILY PO 10/10/17 09:00 11/09/17 08:59 10/11/17 08:26 10 MG Pantoprazole Sodium (Protonix Tab) 40 mg BID PO 10/10/17 09:00 11/09/17 08:59 10/11/17 08:26 40 MG Trazodone HCl (Desyrel Tab) 50 mg HS PO 10/10/17 21:00 11/09/17 20:59 10/10/17 21:35 50 MG Nicotine (Nicoderm Cq 14MG Patch) 1 patch QAM TD 10/10/17 09:00 11/09/17 08:59 Miscellaneous (Remove Nicoderm Patch) 1 ea HS N/A 10/10/17 21:00 11/09/17 20:59 Ipratropium [place] (Atrovent 0.02% 0.5MG/2.5ML Neb) 0.5 mg Q4H PRN INH 10/10/17 00:30 11/09/17 00:29 Levalbuterol (Xopenex 1.25MG/ 0.5ML Neb) 1.25 mg Q4H PRN INH 10/10/17 00:30 11/09/17 00:29 Ranitidine HCl (zANTac TAB) 300 mg HS PO 10/10/17 21:00 11/09/17 20:59 10/10/17 19:50 300 MG Furosemide 80 mg/ Syringe 8 ml @ 4 mls/min TID IV 10/10/17 09:00 11/09/17 08:59 10/11/17 14:20 4 MLS/MIN Warfarin Sodium (Coumadin Tab) 5 mg DAILY@16 PO 10/10/17 16:00 11/09/17 15:59 10/11/17 16:09 5 MG Guaifenesin (Organidin Nr Tab) 200 mg Q8 PRN PO 10/10/17 20:15 11/09/17 20:14 Potassium Chloride (Klor-Con M10) 20 meq DAILY PO 10/12/17 09:00 11/11/17 08:59
[2017-10-11] MEDS: GABAPENTIN 100 MG CAP PO SCH (19:39)
[2017-10-11] MEDS: RANITIDINE HCL 150 MG TAB PO SCH (19:41)
[2017-10-11] MEDS: TRAZODONE HCL 100 MG TAB PO SCH (20:49)
[2017-10-12] VITALS (7 sets, daily range): BP systolic 103–122; BP diastolic 49–63; PULSE 63–82; TEMP 36.7–37.1; O2SAT 91–97
[2017-10-12] MEDS: LEVOTHYROXINE 25 MCG TAB PO SCH (06:31)
[2017-10-12 08:04] LABS: INR 1.8 (0.9-1.1)
[2017-10-12 08:38] LABS: CALCIUM 8.9 mg/dl (8.5-10.1); CREATININE 2.85 mg/dl (0.60-1.20); POTASSIUM 3.5 mmol/L (3.5-5.1)
[2017-10-12] MEDS: FUROSEMIDE INJ 80 MG in SYRINGE 0 ML IV SCH ×3 (08:45→20:16)
[2017-10-12] MEDS: ISOSORBIDE MONONITRATE 60 MG TABCR PO SCH (08:46)
[2017-10-12] MEDS: PANTOprazole SOD 40 MG TAB PO SCH ×2 (08:46→20:15)
[2017-10-12] MEDS: MONTELUKAST SOD 10 MG TAB PO SCH (08:46)
[2017-10-12] MEDS: POTASSIUM CHLORIDE 10 MEQ TABCR PO SCH (08:46)
[2017-10-12] MEDS: NICOTINE 14 MG/24 HR TDSY TD SCH (08:47)
[2017-10-12] MEDS: METOPROLOL TARTRATE 50 MG TAB PO SCH ×2 (08:47→20:15)
[2017-10-12] MEDS: CYANOCOBALAMIN 500 MCG TAB (VIT B-12) PO SCH (08:47)
[2017-10-12] MEDS: ALLOPURINOL 100 MG TAB PO SCH (08:47)
[2017-10-12] MEDS: WARFARIN SOD 5 MG TAB PO SCH (16:04)
[2017-10-12] MEDS ORDERED: NURSING VERBAL MED ORDER ONE (16:45)
[2017-10-12] MEDS ORDERED: ALUMINUM/MAGNESIUM/SIMETH (MAALOX MAX) 30 ML UDC PO ONE (17:15)
--- NOTE | 2017-10-12 19:17 | Progress Note ---
Medicine Progress Note Date & Time of Visit: Oct 12, 2017 at 12:13. Subjective Pt was seen and examined Lying in bed with no distress Pt said that she feels much better Denies any chest pain, palpitation, dizziness Objective Last 8 Hrs Date Time Temp Pulse Resp B/P (MAP) Pulse Ox O2 Delivery O2 Flow Rate FiO2 10/12/17 16:00 Nasal Cannula 3.5 10/12/17 15:49 36.9 70 20 112/63 (79) 97 Nasal Cannula 3.5 10/12/17 13:50 81 112/59 (76) 10/12/17 12:00 36.8 69 16 103/61 (75) 91 Nasal Cannula 10/12/17 12:00 Nasal Cannula 3.5 Physical Exam: General- No acute distress Head- atraumatic Eyes- PERRL, EOMI ENT- oropharynx clear Neck- supple, no JVD Lungs- Coarse BS Heart- regular rhythm Abdomen- normal bowel sounds, soft Extremities- no calf tenderness Neuro- alert, oriented, PERRL, EOMI Skin- warm & dry Laboratory Results: Last 24 Hours Test 10/12/17 07:34 Prothrombin Time 18.7 SECONDS Prothromb Time International Ratio 1.8 Sodium Level 139 mmol/L Potassium Level 3.5 mmol/L Chloride Level 101 mmol/L Carbon Dioxide Level 31 mmol/L Anion Gap 7.0 mmol/L Blood Urea Nitrogen 58 mg/dl Creatinine 2.85 mg/dl Est Creatinine Clear Calc Drug Dose 13.1 ml/min Estimated GFR () 17.7 Estimated GFR (Non- 15.3 BUN/Creatinine Ratio 20.2 Random Glucose 84 mg/dl Calcium Level 8.9 mg/dl Assessment & Plan Acute diastolic heart failure CXR on admission showed cardiomegaly with evidence of congestive failure and interstitial edema. Pro- BNP 12K troponinx2 set negative Continue IV lasix 80 mg TID On 1.5 liter fluid restriction Monitor kidney function Continue I/O If creatine worsening or does not respond with diuretic, will consider dialysis Cardiology on board nephrology on board recommended to continue with current management Continue monitor in tele CKD stage 4 creatine 2.9 on admission creatine today 2.8 creatine was 3.6 about 1 week ago Volume overload on admission Continue lasix 80mg IV TID Nephrology on board If showed signs of uremic, nephro will start her on HD History of rheumatic heart disease status post AVR, MVR on Coumadin INR 1.8 today continue coumadin Hypertension Stable AFib Rate is controlled Continue coumadin Coumadin 1.8 Monitor INR Chronic anemia Due to CKD Hbg 9.9 Continue monitor CBC Chronic obstructive pulmonary disease CXR showed no infiltrate Continue neb treatment Not on any maintenance med for CODP Consider anticholinergic/LABA Tobacco abuse Counseling on smoking cessation Hypokalemia K stable Monitor BMP DVT px on coumadin INR 1.8 CODE STATUS FULL CODE Consultants: Cardio Nephro Current Inpatient Medications: Current Inpatient Medications Medications (Trade) Dose Ordered Sig/Shana Route Start Time Stop Time Status Last Admin Dose Admin Acetaminophen (Tylenol Tab) 650 mg Q4H PRN PO 10/10/17 00:00 11/09/17 00:00 Nitroglycerin (Nitrostat Tab) 0.4 mg UD PRN SL 10/10/17 00:00 11/09/17 00:00 Hydromorphone HCl (Dilaudid Inj) 0.5 mg Q3H PRN IV 10/10/17 00:00 10/24/17 00:00 Tramadol HCl (Ultram Tab) 25 mg Q6H PRN PO 10/10/17 00:00 11/09/17 00:00 Prochlorperazine Edisylate 5 mg/ Syringe 5 ml @ 5 mls/min Q6H PRN IV 10/10/17 00:00 11/09/17 00:00 Allopurinol (Zyloprim Tab) 100 mg DAILY PO 10/10/17 09:00 11/09/17 08:59 10/12/17 08:47 100 MG Cyanocobalamin (Vitamin B-12 Tab) 1,000 mcg DAILY PO 10/10/17 09:00 11/09/17 08:59 10/12/17 08:47 1,000 MCG Folic Acid (Folvite Tab) 1 mg DAILY PO 10/10/17 09:00 11/09/17 08:59 10/12/17 08:46 1 MG Gabapentin (Neurontin Cap) 100 mg HS PO 10/10/17 21:00 11/09/17 20:59 10/11/17 19:39 100 MG Hydralazine HCl (Apresoline Tab) 50 mg TID PO 10/10/17 09:00 11/09/17 08:59 10/12/17 13:51 50 MG Isosorbide Mononitrate (Imdur Ext Rel Tab) 60 mg QAM PO 10/10/17 09:00 11/09/17 08:59 10/12/17 08:46 60 MG Levothyroxine Sodium (Synthroid Tab) 25 mcg DAILYBB PO 10/10/17 06:00 11/09/17 05:59 10/12/17 06:31 25 MCG Metoprolol Tartrate (Lopressor Tab) 50 mg BID PO 10/10/17 09:00 11/09/17 08:59 10/12/17 08:47 50 MG Montelukast Sodium (Singulair Tab) 10 mg DAILY PO 10/10/17 09:00 11/09/17 08:59 10/12/17 08:46 10 MG Pantoprazole Sodium (Protonix Tab) 40 mg BID PO 10/10/17 09:00 11/09/17 08:59 10/12/17 08:46 40 MG Nicotine (Nicoderm Cq 14MG Patch) 1 patch QAM TD 10/10/17 09:00 11/09/17 08:59 Miscellaneous (Remove Nicoderm Patch) 1 ea HS N/A 10/10/17 21:00 11/09/17 20:59 10/11/17 19:37 1 EA Ipratropium [place] (Atrovent 0.02% 0.5MG/2.5ML Neb) 0.5 mg Q4H PRN INH 10/10/17 00:30 11/09/17 00:29 Levalbuterol (Xopenex 1.25MG/ 0.5ML Neb) 1.25 mg Q4H PRN INH 10/10/17 00:30 11/09/17 00:29 Ranitidine HCl (zANTac TAB) 300 mg HS PO 10/10/17 21:00 11/09/17 20:59 10/11/17 19:41 300 MG Furosemide 80 mg/ Syringe 8 ml @ 4 mls/min TID IV 10/10/17 09:00 11/09/17 08:59 10/12/17 13:50 4 MLS/MIN Warfarin Sodium (Coumadin Tab) 5 mg DAILY@16 PO 10/10/17 16:00 11/09/17 15:59 10/12/17 16:04 5 MG Guaifenesin (Organidin Nr Tab) 200 mg Q8 PRN PO 10/10/17 20:15 11/09/17 20:14 Potassium Chloride (Klor-Con M10) 20 meq DAILY PO 10/12/17 09:00 11/11/17 08:59 10/12/17 08:46 20 MEQ Trazodone HCl (Desyrel Tab) 50 mg HS PO 10/11/17 21:00 11/10/17 20:59 10/11/17 20:49 50 MG
[2017-10-12] MEDS: RANITIDINE HCL 150 MG TAB PO SCH (20:15)
[2017-10-12] MEDS: GABAPENTIN 100 MG CAP PO SCH (20:15)
[2017-10-12] MEDS: TRAZODONE HCL 100 MG TAB PO SCH (20:16)
[2017-10-13 03:35] VITALS: BP 117/65; PULSE 79; TEMP 36.8; O2SAT 92
[2017-10-13] MEDS: LEVOTHYROXINE 25 MCG TAB PO SCH (06:36)
--- NOTE | 2017-10-13 07:13 | Nephrology Progress Note ---
Nephrology Progress Note Date of Service: Oct 13, 2017. Subjective 77 yo female with ckd stage 4 close to needing dialysis who presented with volume overload and diuresed nicely over the weekend and inquiring about going home today if possible. continues to be tired and decreased appetite but breathing better. Objective Date Time Temp Pulse Resp B/P (MAP) Pulse Ox O2 Delivery O2 Flow Rate FiO2 10/13/17 04:00 Nasal Cannula 2.0 10/13/17 03:35 36.8 79 16 117/65 (82) 92 Nasal Cannula 3.5 10/12/17 23:59 Nasal Cannula 2.0 10/12/17 23:38 36.9 78 19 107/49 (68) 94 Nasal Cannula 3.0 10/12/17 20:10 37.1 63 20 122/51 (74) 94 Nasal Cannula 3.5 10/12/17 20:00 Nasal Cannula 2.0 10/12/17 16:00 Nasal Cannula 3.5 10/12/17 15:49 36.9 70 20 112/63 (79) 97 Nasal Cannula 3.5 10/12/17 13:50 81 112/59 (76) 10/12/17 12:00 36.8 69 16 103/61 (75) 91 Nasal Cannula 10/12/17 12:00 Nasal Cannula 3.5 10/12/17 08:16 36.7 82 16 105/55 (72) 93 Nasal Cannula 4.0 10/12/17 08:00 Nasal Cannula 3.5 Physical Exam: General-aaox3 Eyes-no scleral icterus ENT-mmm Neck-supple Lungs-decreased at bases Heart-irregular Abdomen-bs+ s/nt Extremities-mild edema Neuro-nonfocal Current Inpatient Medications Medications (Trade) Dose Ordered Sig/Shana Route Start Time Stop Time Status Last Admin Dose Admin Acetaminophen (Tylenol Tab) 650 mg Q4H PRN PO 10/10/17 00:00 11/09/17 00:00 Nitroglycerin (Nitrostat Tab) 0.4 mg UD PRN SL 10/10/17 00:00 11/09/17 00:00 Hydromorphone HCl (Dilaudid Inj) 0.5 mg Q3H PRN IV 10/10/17 00:00 10/24/17 00:00 Tramadol HCl (Ultram Tab) 25 mg Q6H PRN PO 10/10/17 00:00 11/09/17 00:00 Prochlorperazine Edisylate 5 mg/ Syringe 5 ml @ 5 mls/min Q6H PRN IV 10/10/17 00:00 11/09/17 00:00 Allopurinol (Zyloprim Tab) 100 mg DAILY PO 10/10/17 09:00 11/09/17 08:59 10/12/17 08:47 100 MG Cyanocobalamin (Vitamin B-12 Tab) 1,000 mcg DAILY PO 10/10/17 09:00 11/09/17 08:59 10/12/17 08:47 1,000 MCG Folic Acid (Folvite Tab) 1 mg DAILY PO 10/10/17 09:00 11/09/17 08:59 10/12/17 08:46 1 MG Gabapentin (Neurontin Cap) 100 mg HS PO 10/10/17 21:00 11/09/17 20:59 10/12/17 20:15 100 MG Hydralazine HCl (Apresoline Tab) 50 mg TID PO 10/10/17 09:00 11/09/17 08:59 10/12/17 20:16 50 MG Isosorbide Mononitrate (Imdur Ext Rel Tab) 60 mg QAM PO 10/10/17 09:00 11/09/17 08:59 10/12/17 08:46 60 MG Levothyroxine Sodium (Synthroid Tab) 25 mcg DAILYBB PO 10/10/17 06:00 11/09/17 05:59 10/13/17 06:36 25 MCG Metoprolol Tartrate (Lopressor Tab) 50 mg BID PO 10/10/17 09:00 11/09/17 08:59 10/12/17 20:15 50 MG Montelukast Sodium (Singulair Tab) 10 mg DAILY PO 10/10/17 09:00 11/09/17 08:59 10/12/17 08:46 10 MG Pantoprazole Sodium (Protonix Tab) 40 mg BID PO 10/10/17 09:00 11/09/17 08:59 10/12/17 20:15 40 MG Nicotine (Nicoderm Cq 14MG Patch) 1 patch QAM TD 10/10/17 09:00 11/09/17 08:59 Miscellaneous (Remove Nicoderm Patch) 1 ea HS N/A 10/10/17 21:00 11/09/17 20:59 10/12/17 20:12 1 EA Ipratropium [place] (Atrovent 0.02% 0.5MG/2.5ML Neb) 0.5 mg Q4H PRN INH 10/10/17 00:30 11/09/17 00:29 Levalbuterol (Xopenex 1.25MG/ 0.5ML Neb) 1.25 mg Q4H PRN INH 10/10/17 00:30 11/09/17 00:29 Ranitidine HCl (zANTac TAB) 300 mg HS PO 10/10/17 21:00 11/09/17 20:59 10/12/17 20:15 300 MG Furosemide 80 mg/ Syringe 8 ml @ 4 mls/min TID IV 10/10/17 09:00 11/09/17 08:59 10/12/17 20:16 4 MLS/MIN Warfarin Sodium (Coumadin Tab) 5 mg DAILY@16 PO 10/10/17 16:00 11/09/17 15:59 10/12/17 16:04 5 MG Guaifenesin (Organidin Nr Tab) 200 mg Q8 PRN PO 10/10/17 20:15 11/09/17 20:14 Potassium Chloride (Klor-Con M10) 20 meq DAILY PO 10/12/17 09:00 11/11/17 08:59 10/12/17 08:46 20 MEQ Trazodone HCl (Desyrel Tab) 50 mg HS PO 10/11/17 21:00 11/10/17 20:59 10/12/17 20:16 50 MG Last 24 Hours Test 10/12/17 07:34 10/13/17 06:59 Prothrombin Time 18.7 SECONDS Prothromb Time International Ratio 1.8 Sodium Level 139 mmol/L Potassium Level 3.5 mmol/L Chloride Level 101 mmol/L Carbon Dioxide Level 31 mmol/L Anion Gap 7.0 mmol/L Blood Urea Nitrogen 58 mg/dl Creatinine 2.85 mg/dl Est Creatinine Clear Calc Drug Dose 13.1 ml/min Estimated GFR () 17.7 Estimated GFR (Non- 15.3 BUN/Creatinine Ratio 20.2 Random Glucose 84 mg/dl Calcium Level 8.9 mg/dl Assessment & Plan ckd stage 4-pt is close to needing dialysis. has fatigue and decreased appetite. gfr though above 10 and volume status has improved with iv diuretics. has lost about 3 kilos and breathing better. on lasix 80 iv tid. will discuss further with cardiology and primary hospitalist-could consider switching to orals and following closely as an outpt. labs pending for today.
[2017-10-13 07:16] LABS: BASO % 0.4 %; BASO ABS # 0.02 K/uL (0-0.2); EOS % 5.5 %; EOS ABS # 0.28 K/uL (0-0.5); HEMATOCRIT 30.4 % (37-47); HEMOGLOBIN 9.6 g/dL (12.0-16.0); IG# 0.02 K/uL (0.00-0.02); LYMPH % 13.5 %; LYMPH ABS # 0.69 K/uL (1.2-3.4); MEAN CELL VOLUME 111.4 fL (80-100); MEAN CORPUSCULAR HEMOGLOBIN 35.2 pg (25-34); MEAN CORPUSCULAR HGB CONC 31.6 g/dl (32-36); MEAN PLATELET VOLUME 9.5 fL (7.4-10.4); MONO % 14.3 %; MONO ABS # 0.73 K/uL (0.11-0.59); NEUT % 65.9 %; NEUT ABS # 3.36 K/uL (1.4-6.5); PLATELET COUNT 160 K/uL (130-400); RED CELL DISTRIBUTION WIDTH CV 15.4 % (11.5-14.5); RED CELL DISTRIBUTION WIDTH SD 61.8 fL (36.4-46.3)
[2017-10-13 07:24] LABS: INR 2.3 (0.9-1.1)
[2017-10-13] MEDS: FUROSEMIDE INJ 80 MG in SYRINGE 0 ML IV SCH ×2 (07:33→14:00)
[2017-10-13] MEDS: PANTOprazole SOD 40 MG TAB PO SCH (07:34)
[2017-10-13] MEDS: MONTELUKAST SOD 10 MG TAB PO SCH (07:34)
[2017-10-13] MEDS: METOPROLOL TARTRATE 50 MG TAB PO SCH (07:35)
[2017-10-13] MEDS: POTASSIUM CHLORIDE 10 MEQ TABCR PO SCH (07:35)
[2017-10-13] MEDS: CYANOCOBALAMIN 500 MCG TAB (VIT B-12) PO SCH (07:36)
[2017-10-13] MEDS: ALLOPURINOL 100 MG TAB PO SCH (07:36)
[2017-10-13] MEDS: ISOSORBIDE MONONITRATE 60 MG TABCR PO SCH (07:36)
[2017-10-13] MEDS: NICOTINE 14 MG/24 HR TDSY TD SCH (07:37)
[2017-10-13 07:46] VITALS: BP 122/66; PULSE 76; TEMP 37.1; O2SAT 90
[2017-10-13 07:51] LABS: CREATININE 2.93 mg/dl (0.60-1.20); POTASSIUM 3.6 mmol/L (3.5-5.1)
[2017-10-13 11:21] VITALS: BP 107/64; PULSE 67; TEMP 36.7; O2SAT 96
--- NOTE | 2017-10-13 11:36 | Progress Note ---
Medicine Progress Note Date & Time of Visit: Oct 13, 2017 at 11:20. Subjective Pt was seen and examined Sitting at the edge of the bed with no distress with family member at bedside Pt said that she feels much better She said that she does not have any diarrhea Pt had a 2 step done and requires continuous oxygen Denies any chest pain, palpitation, dizziness and fever Objective Last 8 Hrs Date Time Temp Pulse Resp B/P (MAP) Pulse Ox O2 Delivery O2 Flow Rate FiO2 10/13/17 08:00 Nasal Cannula 4.0 Humidified Oxygen 10/13/17 07:46 37.1 76 18 122/66 (84) 90 Nasal Cannula 3.0 10/13/17 04:00 Nasal Cannula 2.0 10/13/17 03:35 36.8 79 16 117/65 (82) 92 Nasal Cannula 3.5 Physical Exam: General- No acute distress Head- atraumatic Eyes- PERRL, EOMI ENT- oropharynx clear Neck- supple, no JVD Lungs- Coarse BS Heart- regular rhythm Abdomen- normal bowel sounds, soft Extremities- no calf tenderness Neuro- alert, oriented, PERRL, EOMI Skin- warm & dry Laboratory Results: Last 24 Hours Test 10/13/17 06:59 White Blood Count 5.10 K/uL Red Blood Count 2.73 M/uL Hemoglobin 9.6 g/dL Hematocrit 30.4 % Mean Corpuscular Volume 111.4 fL Mean Corpuscular Hemoglobin 35.2 pg Mean Corpuscular Hemoglobin Concent 31.6 g/dl Platelet Count 160 K/uL Mean Platelet Volume 9.5 fL Neutrophils (%) (Auto) 65.9 % Lymphocytes (%) (Auto) 13.5 % Monocytes (%) (Auto) 14.3 % Eosinophils (%) (Auto) 5.5 % Basophils (%) (Auto) 0.4 % Neutrophils # (Auto) 3.36 K/uL Lymphocytes # (Auto) 0.69 K/uL Monocytes # (Auto) 0.73 K/uL Eosinophils # (Auto) 0.28 K/uL Basophils # (Auto) 0.02 K/uL RDW Standard Deviation 61.8 fL RDW Coefficient of Variation 15.4 % Immature Granulocyte % (Auto) 0.4 % Immature Granulocyte # (Auto) 0.02 K/uL Red Blood Cell Morphology Unremarkable Prothrombin Time 24.2 SECONDS Prothromb Time International Ratio 2.3 Sodium Level 140 mmol/L Potassium Level 3.6 mmol/L Chloride Level 101 mmol/L Carbon Dioxide Level 32 mmol/L Anion Gap 7.0 mmol/L Blood Urea Nitrogen 61 mg/dl Creatinine 2.93 mg/dl Est Creatinine Clear Calc Drug Dose 12.7 ml/min Estimated GFR () 17.2 Estimated GFR (Non- 14.8 BUN/Creatinine Ratio 20.7 Random Glucose 84 mg/dl Calcium Level 9.0 mg/dl Assessment & Plan Acute diastolic heart failure CXR on admission showed cardiomegaly with evidence of congestive failure and interstitial edema. Pro- BNP 12K troponinx2 set negative Continue IV lasix 80 mg TID On 1.5 liter fluid restriction Monitor kidney function Continue I/O If creatine worsening or does not respond with diuretic, will consider dialysis Cardiology on board nephrology on board recommended to continue with current management Continue monitor in tele 10/13 Clinically improved Diuresis well Case discussed with Nephrology recommended to discharge home on lasix 160mg BID Will check BMP on Continue 1.5L fluid restriction CKD stage 4 creatine 2.9 on admission creatine today 2.9 creatine was 3.6 about 1 week ago Volume overload on admission Continue lasix 80mg IV TID Nephrology on board If showed signs of uremic, nephro will start her on HD 10/13 Ok from nephro standpoint to discharge home Will discharge on lasix 160mg BID Monitor BMP Follow up with vascular on Friday for Perm Cath History of rheumatic heart disease status post AVR, MVR on Coumadin INR 2.3 today continue coumadin Follow up with the coag clinic Hypertension Stable AFib Rate is controlled Continue coumadin Coumadin 2.3 Monitor INR Chronic anemia Due to CKD Hbg 9.6 Continue monitor CBC Chronic obstructive pulmonary disease CXR showed no infiltrate Continue neb treatment Not on any maintenance med for CODP Consider anticholinergic/LABA 2 step done today, requires 2 L oxygen NC continuous Tobacco abuse Counseling on smoking cessation Hypokalemia K stable Monitor BMP DVT px on coumadin INR 2.3 CODE STATUS FULL CODE DISPOSITION Will discharge home today Follow up with your primary care provider Dr. Aguillon on 10/16 @ 10:45 am Consultants: Cardio Nephro Current Inpatient Medications: Current Inpatient Medications Medications (Trade) Dose Ordered Sig/Shana Route Start Time Stop Time Status Last Admin Dose Admin Acetaminophen (Tylenol Tab) 650 mg Q4H PRN PO 10/10/17 00:00 11/09/17 00:00 Nitroglycerin (Nitrostat Tab) 0.4 mg UD PRN SL 10/10/17 00:00 11/09/17 00:00 Hydromorphone HCl (Dilaudid Inj) 0.5 mg Q3H PRN IV 10/10/17 00:00 10/24/17 00:00 Tramadol HCl (Ultram Tab) 25 mg Q6H PRN PO 10/10/17 00:00 11/09/17 00:00 Prochlorperazine Edisylate 5 mg/ Syringe 5 ml @ 5 mls/min Q6H PRN IV 10/10/17 00:00 11/09/17 00:00 Allopurinol (Zyloprim Tab) 100 mg DAILY PO 10/10/17 09:00 11/09/17 08:59 10/13/17 07:36 100 MG Cyanocobalamin (Vitamin B-12 Tab) 1,000 mcg DAILY PO 10/10/17 09:00 11/09/17 08:59 10/13/17 07:36 1,000 MCG Folic Acid (Folvite Tab) 1 mg DAILY PO 10/10/17 09:00 11/09/17 08:59 10/13/17 07:35 1 MG Gabapentin (Neurontin Cap) 100 mg HS PO 10/10/17 21:00 11/09/17 20:59 10/12/17 20:15 100 MG Hydralazine HCl (Apresoline Tab) 50 mg TID PO 10/10/17 09:00 11/09/17 08:59 10/13/17 07:36 50 MG Isosorbide Mononitrate (Imdur Ext Rel Tab) 60 mg QAM PO 10/10/17 09:00 11/09/17 08:59 10/13/17 07:36 60 MG Levothyroxine Sodium (Synthroid Tab) 25 mcg DAILYBB PO 10/10/17 06:00 11/09/17 05:59 10/13/17 06:36 25 MCG Metoprolol Tartrate (Lopressor Tab) 50 mg BID PO 10/10/17 09:00 11/09/17 08:59 10/13/17 07:35 50 MG Montelukast Sodium (Singulair Tab) 10 mg DAILY PO 10/10/17 09:00 11/09/17 08:59 10/13/17 07:34 10 MG Pantoprazole Sodium (Protonix Tab) 40 mg BID PO 10/10/17 09:00 11/09/17 08:59 10/13/17 07:34 40 MG Nicotine (Nicoderm Cq 14MG Patch) 1 patch QAM TD 10/10/17 09:00 11/09/17 08:59 Miscellaneous (Remove Nicoderm Patch) 1 ea HS N/A 10/10/17 21:00 11/09/17 20:59 10/12/17 20:12 1 EA Ipratropium [place] (Atrovent 0.02% 0.5MG/2.5ML Neb) 0.5 mg Q4H PRN INH 10/10/17 00:30 11/09/17 00:29 Levalbuterol (Xopenex 1.25MG/ 0.5ML Neb) 1.25 mg Q4H PRN INH 10/10/17 00:30 11/09/17 00:29 Ranitidine HCl (zANTac TAB) 300 mg HS PO 10/10/17 21:00 11/09/17 20:59 10/12/17 20:15 300 MG Furosemide 80 mg/ Syringe 8 ml @ 4 mls/min TID IV 10/10/17 09:00 11/09/17 08:59 10/13/17 07:33 4 MLS/MIN Warfarin Sodium (Coumadin Tab) 5 mg DAILY@16 PO 10/10/17 16:00 11/09/17 15:59 10/12/17 16:04 5 MG Guaifenesin (Organidin Nr Tab) 200 mg Q8 PRN PO 10/10/17 20:15 11/09/17 20:14 Potassium Chloride (Klor-Con M10) 20 meq DAILY PO 10/12/17 09:00 11/11/17 08:59 10/13/17 07:35 20 MEQ Trazodone HCl (Desyrel Tab) 50 mg HS PO 10/11/17 21:00 11/10/17 20:59 10/12/17 20:16 50 MG
[2017-10-13] MEDS ORDERED: GUAI1TAB68 PO (11:42)
[2017-10-13] MEDS ORDERED: POTA10CA28 PO (11:42)
[2017-10-13] MEDS ORDERED: FRS/80 PO (11:42)
--- NOTE | 2017-10-13 11:51 | Discharge Instructions ---
Discharge Instructions Date of Service Oct 13, 2017. Admission Reason for Admission: Chf Exacerbation Discharge Discharge Diagnosis / Problem: Acute diastolic heart failure, CKD stage 4, COPD , Afib Discharge Goals Goal(s): Decrease discomfort, Improve function, Improve disease control Activity Recommendations Activity Limitations: resume your previous activity (as tolerated) . Instructions / Follow-Up Instructions / Follow-Up Follow up with your primary care provider Dr. Aguillon on 10/16 @ 10:45 Follow up with Vascular surgery Dr. Elena on 10/15 Follow up with nephrology Dr. Burgess Follow up with the Coumadin clinic Continue Coumadin as previously prescribing Check BMP on fall precaution Continue oxygen supplement at all times Counseling on smoking cessation Do not smoke around the oxygen tank Continue 1.5L Fluid restriction Follow up a low salt diet Current Hospital Diet Patient's current hospital diet: AHA Diet (Heart Healthy), Renal Diet, Low Sodium Diet (2gm Na) Discharge Diet Recommended Diet: AHA Diet (Heart Healthy), Low Sodium Diet (2gm Na), Renal Diet Pending Studies Studies pending at discharge: no Medical Emergencies . Who to Call and When: Medical Emergencies: If at any time you feel your situation is an emergency, please call 911 immediately. . Non-Emergent Contact Non-Emergency issues call your: Primary Care Provider, [employer] Machine Operator Call Non-Emergent contact if: you have any medication questions . . "Provider Documentation" section prepared by Abe Jeffrey. . VTE Core Measure Inpt VTE Proph given/why not?: Warfarin (Coumadin)
[2017-10-13 13:23] VITALS: BP 107/64; PULSE 67; TEMP 36.7; O2SAT 96
== END 2017-10-13 14:35 | disposition home or self-care (01) | DRG 291 ==
LOC: C.EDB 16:34 → C.2T 23:26 → ENRESERV 23:50
PROVIDERS: ADMIT Internal Medicine; ATTEND Internal Medicine
DX: I13.0 Hypertensive heart and chronic kidney disease with heart failure and stage 1 through stage 4 chronic kidney disease, or unspecified chronic kidney disease (principal); I50.33 Acute on chronic diastolic (congestive) heart failure; N18.4 Chronic kidney disease, stage 4 (severe); E87.6 Hypokalemia; T50.2X5A Adverse effect of carbonic-anhydrase inhibitors, benzothiadiazides and other diuretics, initial encounter; I48.2 Chronic atrial fibrillation; J44.9 Chronic obstructive pulmonary disease, unspecified; D63.1 Anemia in chronic kidney disease; E03.9 Hypothyroidism, unspecified; M10.9 Gout, unspecified; M81.0 Age-related osteoporosis without current pathological fracture; F17.200 Nicotine dependence, unspecified, uncomplicated; Z79.899 Other long term (current) drug therapy; Z79.01 Long term (current) use of anticoagulants; Z86.79 Personal history of other diseases of the circulatory system; Z95.2 Presence of prosthetic heart valve; Z82.3 Family history of stroke; Z81.8 Family history of other mental and behavioral disorders

== ENCOUNTER 2017-12-12 10:31 | Day surgery (SDC) | payer OTHER ==
--- NOTE | 2017-11-13 14:00 | PAT Medication Instructions ---
Service Date Nov 13, 2017. Current Home Medication List Allopurinol (Zyloprim), 100 MG PO QAM Calcitriol (Rocaltrol Cap), 1 CAP PO 2XWK Cyanocobalamin (Vitamin B-12 1000 Mcg), 1 TAB PO afternoon Diclofenac Sodium (Topical) (Voltaren 1% Top Gel), 1 DOSE TOP UD PRN for prn Folic Acid (Folic Acid), 1 MG PO QAM Gabapentin (Neurontin), 100 MG PO HS Guaifenesin (Guaifenesin), 1 TAB PO UD PRN for prn Home O2 Therapy (Oxygen), 2 LITERS NA CONTINOUS Hydralazine Hcl (Apresoline), 1 TAB PO TID Iron-Vitamin C (Vitron-C), 1 TAB PO QAM Isosorbide Mononitrate Ext Rel (Imdur Ext Rel), 60 MG PO QAM Levothyroxine Sodium (Synthroid), 25 MCG PO QAM Metoprolol Tartrate (Lopressor), 50 MG PO BID Montelukast Sodium (Montelukast Sodium), 1 TAB PO late afternoon Nitroglycerin (Nitrostat), 0.4 MG UT PRN Pantoprazole (Protonix), 40 MG PO BID Potassium Ext Rel (Klor-Con), 20 MEQ PO BID Ranitidine (Zantac), 300 MG PO HS Warfarin Sod (Coumadin), 1 DOSE PO UD Medication Instructions For Your Scheduled Surgery -Continue as directed (but do not take the morning of surgery) Calcitriol (Rocaltrol Cap), 1 CAP PO 2XWK -Continue as directed: Home O2 Therapy (Oxygen), 2 LITERS NA CONTINOUS Nitroglycerin (Nitrostat), 0.4 MG UT PRN -Contact your prescriber and surgeon for instructions for: Warfarin Sod (Coumadin), 1 DOSE PO UD - Hold the following medications 24 hours prior to surgery: Diclofenac Sodium (Topical) (Voltaren 1% Top Gel), 1 DOSE TOP UD PRN for prn - Hold the following medications the morning of surgery: Folic Acid (Folic Acid), 1 MG PO QAM Guaifenesin (Guaifenesin), 1 TAB PO UD PRN for prn Iron-Vitamin C (Vitron-C), 1 TAB PO QAM Potassium Ext Rel (Klor-Con), 20 MEQ PO BID - Take the following medications the morning of surgery with a sip of water: Allopurinol (Zyloprim), 100 MG PO QAM Hydralazine Hcl (Apresoline), 1 TAB PO TID Isosorbide Mononitrate Ext Rel (Imdur Ext Rel), 60 MG PO QAM Levothyroxine Sodium (Synthroid), 25 MCG PO QAM Metoprolol Tartrate (Lopressor), 50 MG PO BID Pantoprazole (Protonix), 40 MG PO BID - Take the following medications as scheduled the night before surgery: Cyanocobalamin (Vitamin B-12 1000 Mcg), 1 TAB PO afternoon Gabapentin (Neurontin), 100 MG PO HS Guaifenesin (Guaifenesin), 1 TAB PO UD PRN for prn (if needed) Hydralazine Hcl (Apresoline), 1 TAB PO TID Metoprolol Tartrate (Lopressor), 50 MG PO BID Montelukast Sodium (Montelukast Sodium), 1 TAB PO late afternoon Pantoprazole (Protonix), 40 MG PO BID Potassium Ext Rel (Klor-Con), 20 MEQ PO BID Ranitidine (Zantac), 300 MG PO HS If you have any questions please call us at [phone] or [phone] or [phone]
--- NOTE | 2017-11-13 14:52 | DIAGNOSTIC IMAGING REPORT ---
CHEST 2 VIEWS ROUTINE HISTORY: Preop. COMPARISON: Chest 10/10/2017. FINDINGS: There are postoperative changes. The heart is enlarged. Cardiac valve prostheses are noted. Mild emphysema. Diffuse interstitial and vascular thickening persists. Small bilateral pleural effusions have slightly progressed. Linear densities the left midlung zone favor subsegmental atelectasis or scarring. IMPRESSION: No change in the mild pulmonary edema and small bilateral pleural effusions. Electronically signed by: Froy Laguerre M.D. 11/13/2017 2:50 PM Dictated Date/Time: 11/13/2017 2:48 PM
[2017-11-13 15:26] LABS: BASO % 0.3 %; BASO ABS # 0.03 K/uL (0-0.2); EOS % 0.5 %; EOS ABS # 0.05 K/uL (0-0.5); HEMATOCRIT 27.8 % (37-47); HEMOGLOBIN 9.1 g/dL (12.0-16.0); IG# 0.02 K/uL (0.00-0.02); LYMPH % 7.3 %; LYMPH ABS # 0.67 K/uL (1.2-3.4); MEAN CELL VOLUME 106.5 fL (80-100); MEAN CORPUSCULAR HEMOGLOBIN 34.9 pg (25-34); MEAN CORPUSCULAR HGB CONC 32.7 g/dl (32-36); MEAN PLATELET VOLUME 10.2 fL (7.4-10.4); MONO % 9.3 %; MONO ABS # 0.86 K/uL (0.11-0.59); NEUT % 82.4 %; NEUT ABS # 7.59 K/uL (1.4-6.5); PLATELET COUNT 341 K/uL (130-400); RED CELL DISTRIBUTION WIDTH CV 16.6 % (11.5-14.5); RED CELL DISTRIBUTION WIDTH SD 63.7 fL (36.4-46.3); WHITE BLOOD COUNT 9.22 K/uL (4.8-10.8)
[2017-11-13 15:32] LABS: CALCIUM 9.4 mg/dl (8.5-10.1); CREATININE 1.98 mg/dl (0.60-1.20); POTASSIUM 4.2 mmol/L (3.5-5.1)
[2017-11-13 15:55] LABS: INR 4.5 (0.9-1.1); PTT PATIENT 60.9 SECONDS (21.0-31.0)
--- NOTE | 2017-12-11 15:30 | History and Physical ---
History & Physical Date of Service Dec 11, 2017. History & Physical CC: End stage renal disease HPI: Mrs. Goodson is not yet on hemodialysis, but she has had a declining kidney function for the past 3 years or so. She states that her last followup visit with her head of ict. She was advised to have a fistula created that she will likely need it sometime in the future. She denies any real complaints at this time aside from some mild chronic shortness of breath and dyspnea on exertion as well as a nonproductive cough. She is currently on oxygen at 2 liters. She denies headaches, fevers, chills, dizziness, chest pain, shortness of breath, abdominal pain, nausea, vomiting, diarrhea, constipation, dysuria, hematuria, rest pain, claudication, nonhealing wounds or ulcers or other complaints. She did undergo vein mapping prior to today's appointment, which demonstrates usable cephalic vein in her left forearm. She is right-handed. ALLERGIES: INCLUDE AMLODIPINE. HOME MEDICATIONS: Reconciled on the chart and include the following: Calcitriol, Coumadin, folic acid, gabapentin, guaifenesin, hydralazine, Imdur, Lasix, levothyroxine, Lopressor, nitroglycerin, pantoprazole, potassium chloride , ranitidine, Singulair, spironolactone, trazodone, vitamin B12, vitamin D, Voltaren topical gel and Zyloprim. PAST MEDICAL HISTORY: Positive for coronary artery disease and hypertension as well as congestive heart failure and valvular disease, chronic kidney disease, dyslipidemia, atrial fibrillation, rheumatic heart disease, gout, hypothyroidism. PAST SURGICAL HISTORY: Includes an aortic valve replacement with mechanical valve, an EGD a total hysterectomy, left total hip arthroplasty, mitral valve replacement with mechanical valve, a right total hip arthroplasty and thyroidectomy. FAMILY HISTORY: Positive for dementia and stroke in her mother and heart disease and hypertension in her father. SOCIAL HISTORY: Positive for tobacco use. The patient continues to smoke 1 pack a day. She also drinks 1 glass of wine daily. REVIEW OF SYSTEMS: Positive for fatigue. Negative for fever, sweats, abnormal moles or rashes, vision changes or photophobia, ear pain, sinus problems or sore throat, hemoptysis. She is positive for a nonproductive cough and dyspnea on exertion. She denies wheezing. She denies chest pain, palpitations or syncope. She denies any edema today, but states there are days where she does have some rather significant edema when she is in heart failure. She denies abdominal pain, nausea, vomiting, diarrhea, constipation, dysuria, hematuria, muscle weakness, headaches, dizziness, or seizures. PHYSICAL EXAMINATION: Her vital signs today were as follows: Blood pressure 110/40 in the right arm, 106/44 in the left, heart rate is 77, oxygen 93% on room air. The patient is 154.94 cm tall and weighs 49.5 kilograms. Constitutional: In general, patient is a frail, chronically ill-appearing elderly female in no acute distress. She ambulates slowly without assistance and is active, alert and oriented x3. She is on oxygen via nasal cannula at 2 liters. Her head is normocephalic, atraumatic. Eyes are EOMI. ENMT demonstrates no hearing loss, rhinorrhea or pharyngeal erythema. Neck is supple , nontender with midline trachea without masses or crepitus. Lung exam demonstrates no dyspnea. They are decreased throughout with an occasional expiratory wheeze and a coarse sounding cough. Her heart demonstrates a regular rhythm. There is a murmur as well as a click. Her peripheral pulses are full and equal in all extremities unless otherwise noted, specifically they are normal in carotid, brachial and radial pulses. Her femoral pulses are +2 lower extremity distal pulses are +1. She has brisk capillary refill and no signs of distal ischemia. Abdomen is soft, nontender, with active bowel sounds and no flank or CVA tenderness. I am unable to appreciate any pulsatile mass. Bilateral upper extremities demonstrate no cyanosis, edema, clubbing, varicosities or ulcers. Bilateral lower extremities demonstrate no cyanosis, edema, clubbing, varicosities or ulcers. Neurologically, patient has grossly intact cranial nerves and grossly intact sensation. ASSESSMENT: End-stage renal disease, not yet on hemodialysis. PLAN: Patient is admitted at this time for creation of a left wrist arteriovenous fistula. I have discussed the risks options and benefits of the procedure with the patient. The patient understands the risks options and benefits and agrees to the procedure.
[~2017-12-12] VITALS: Ht 157.5 cm; Wt 50.0 kg
[~2017-12-12 10:31] MED LIST changes: +ATROPINE SULFATE 0.1 MG/ML 5ML SYR IV PRN; +CEFAZOLIN 1000MG IV PUSH 7.5 ML IV SCH; +DICL1GEL12 TOP; +EpHEDrine SULFATE INJ 50 MG/ML AMP IV PRN; +FENTANYL CITRATE INJ 50 MCG/1 ML 2 ML VIAL IV PRN; +FERRTAB18 PO; -FRRS300 PO; -FURO20TA PO; +GUAI1TAB7 PO; -IMDSR60 PO; +ISOS60TA25 PO; +LACTATED RINGER'S 1000ML 1,000 ML IV SCH; -LPT40 PO; +NTRGSL/4 UT; -NTRSLP4 SL; +ONDANSETRON INJ 2 MG/ML 2 ML VIAL IV PRN; +OXGN; +PANT40TA PO; +PHENYLEPHRINE 100MCG/ML 5ML SYR IV PRN; +POTA20TA16 PO; +SODIUM CHLORIDE 0.9% 1000ML 1,000 ML IV SCH; -SPIR25TA PO; -WARF2.5T8 PO
[2017-12-12 11:07] VITALS: BP_SYST 136; BP_SYST 137; BP_DIAS 65; BP_DIAS 78; PULSE 85; TEMP 36.6; O2SAT 95; Ht 157.5 cm; Wt 50.0 kg
[2017-12-12 11:27] LABS: INR 1.5 (0.9-1.1); PTT PATIENT 30.6 SECONDS (21.0-31.0)
[2017-12-12 11:35] LABS: CALCIUM 9.1 mg/dl (8.5-10.1); CREATININE 2.66 mg/dl (0.60-1.20); POTASSIUM 3.4 mmol/L (3.5-5.1)
[2017-12-12] MEDS ORDERED: MIDAZOLAM HCL 1 MG/ML 2ML VIAL ONE ×2 (12:56→12:57)
[2017-12-12] MEDS ORDERED: FENTANYL CITRATE INJ 50 MCG/1 ML 2 ML VIAL ONE (12:57)
[2017-12-12] MEDS ORDERED: BUPIVACAINE/EPINEPHRINE 0.5% MPF 1:200,000 30 ML VIAL ONE (13:52)
[2017-12-12] MEDS ORDERED: GELATIN SPONGE 12-7MM ONE (13:52)
[2017-12-12] MEDS ORDERED: THROMBIN FOR SOLN 20000 UNIT KIT ONE (13:52)
[2017-12-12] MEDS ORDERED: HEPARIN SOD (PORCINE) 1000 UNIT/ML 10 ML VIAL ONE (13:53)
[2017-12-12] MEDS ORDERED: LIDOCAINE HCL 1% 20 ML VIAL ONE (13:53)
[2017-12-12] MEDS ORDERED: PROPOFOL IV EMULSION 10 MG/ML 20 ML VIAL IV ONE (14:00)
[2017-12-12] MEDS ORDERED: LIDOCAINE HCL 2% 2 ML VIAL (20MG/ML) ONE (14:00)
--- NOTE | 2017-12-12 15:30 | [facility] Post Operative Brief Note ---
Immediate Operative Summary Operative Date Dec 12, 2017. Pre-Operative Diagnosis End stage renal disease Post-Operative Diagnosis End stage renal disease Procedure(s) Performed Left wrist arteriovenous fistula creation Surgeon Dr. Elena Engraver [employer] Surgeon(s) MD Janice Romero PA-C Estimated Blood Loss 10cc Findings Consistent with Post-Op Diagnosis Specimens none Drains None Anesthesia Type MAC Complication(s) none Disposition Accompanied Pt To Recover: no Disposition: Recovery Room / PACU
[2017-12-12] MEDS ORDERED: OXYC-57 PO (15:49)
--- NOTE | 2017-12-12 15:50 | Discharge Instructions ---
Discharge Instructions Date of Service Dec 12, 2017. Visit Reason for Visit: End Stage Renal Disease Discharge Discharge Diagnosis / Problem: End stage renal disease Discharge Goals Goal(s): Therapeutic intervention Activity Recommendations Activity Limitations: per Instructions/Follow-up section Anesthesia . Post Anesthesia Instructions: If you have had General Anesthesia or IV Sedation: * Do not drive today. * Resume driving when surgeon permits. * Do not make important decisions or sign legal documents today. * Call surgeon for: 1. Temperature elevations greater than 101 degrees F. 2. Uncontrollable pain. 3. Excessive bleeding. 4. Persistent nausea and vomiting. 5. Medication intolerance (nausea, vomiting or rash). * For nausea and vomiting use only clear liquids such as: tea, soda, bouillon until nausea subsides, then gradually increase diet as tolerated. * If you have any concerns or questions, call your surgeon's office. If physician is unavailable and it is an emergency, call 911 or go to the nearest emergency room. . Instructions / Follow-Up Instructions / Follow-Up Call [phone] to schedule a follow up appointment if one not already scheduled. ACTIVITY RECOMMENDATIONS: See Above SPECIAL CARE INSTRUCTIONS: Call your doctor if: * Temperature above 101 degrees * Pain not relieved by pain medicine ordered * There is increased drainage or redness from any incision * You have any unanswered questions or concerns. Diet Recommendations Recommended Home Diet: resume previous diet Procedures Procedures Performed: Left wrist arteriovenous fistula creation Pending Studies Studies pending at discharge: no Medical Emergencies . Who to Call and When: Medical Emergencies: If at any time you feel your situation is an emergency, please call 911 immediately. . Non-Emergent Contact Non-Emergency issues call your: Surgeon . . "Provider Documentation" section prepared by Robert Elena. .
[2017-12-12] MEDS ORDERED: PERCOCET HOME PACK PO ONE (16:00)
[2017-12-12 16:11] VITALS: BP 121/48; PULSE 81; TEMP 36.5; O2SAT 91
--- NOTE | 2017-12-12 16:37 | Anesthesiology Progress Note ---
Anesthesia Post Op Note Date & Time Dec 12, 2017 at 16:36 Vital Signs Pain Intensity: 0 Vital Signs Past 12 Hours Date Time Temp Pulse Resp B/P (MAP) Pulse Ox O2 Delivery O2 Flow Rate FiO2 12/12/17 16:11 36.5 81 22 121/48 91 Nasal Cannula 2 12/12/17 16:05 36.6 75 23 132/61 94 Nasal Cannula 2 12/12/17 15:55 73 25 147/72 95 Nasal Cannula 2 12/12/17 15:48 36.8 84 24 119/68 92 Nasal Cannula 2 12/12/17 11:07 36.6 85 20 137/78 (97) 95 Room Air 136/65 (88) Notes Mental Status: alert / awake / arousable, participated in evaluation Pt Amnestic to Procedure: Yes Nausea / Vomiting: adequately controlled Pain: adequately controlled Airway Patency, RR, SpO2: stable & adequate BP & HR: stable & adequate Hydration State: stable & adequate Anesthetic Complications: no major complications apparent
[2017-12-12 16:57] VITALS: BP 137/66; PULSE 75; TEMP 36.9; O2SAT 97
--- NOTE | 2017-12-15 07:54 | OPERATIVE REPORT ---
DATE OF OPERATION: 12/12/2017 PREOPERATIVE DIAGNOSIS: End-stage renal disease. POSTOPERATIVE DIAGNOSIS: Same. PROCEDURE: Left radiocephalic fistula creation. SURGEON: Robert Elena MD CASTER OPERATOR: Laura Callaway MD; and Janice Bunch PA-C ANESTHESIA: Local plus conscious sedation. ESTIMATED BLOOD LOSS: 15 mL. FLUIDS: 200 mL. URINE OUTPUT: Not recorded. COMPLICATIONS: None apparent. CONDITION: Stable to PACU. INDICATIONS: Mrs. Goodson is a 77-year-old female with worsening renal disease. She was recommended to have a permanent hemodialysis access placed. She agreed to undergo the above. DESCRIPTION OF PROCEDURE: The patient was brought to the operative suite. She was prepped and draped in the usual fashion. Time-out occurred. An incision was made over her cephalic vein and radial artery in her wrist. Her cephalic vein was identified. All branches were ligated. This was inflated with heparinized saline to ensure it would dilate, it dilated well. Next, the radial artery was located and dissected out. This appeared to be of adequate quality for anastomosis. An angled DeBakey clamps were placed proximally and distally. Arteriotomy was made with 11 blade and extended with Farnsworth scissors to be about approximately 6 mm in diameter. The vein was cut to size and sewn in an end-to-side fashion using 7-0 Prolene. Hemostasis was obtained. There was a dopplerable bruit in the vein that was traced all the way up to the antecubital fossa. This was full in the radial artery. Hemostasis was obtained and the incision was closed using 3-0 and 4-0 Vicryls. Dermabond was placed on top. The patient was then transferred to the PACU in stable condition. Dr. Robert Elena was present and scrubbed for the entirety of this case. I attest to the content of the Intraoperative Record and any orders documented therein. Any exception s are noted below.
== END 2017-12-12 17:08 | disposition home or self-care (01) ==
LOC: C.ACU 10:31
PROVIDERS: ATTEND Surgery Vascular Surgery
DX: N18.6 End stage renal disease (principal); I09.81 Rheumatic heart failure; I48.91 Unspecified atrial fibrillation; I13.2 Hypertensive heart and chronic kidney disease with heart failure and with stage 5 chronic kidney disease, or end stage renal disease; E78.5 Hyperlipidemia, unspecified; E03.9 Hypothyroidism, unspecified; M10.9 Gout, unspecified; F17.210 Nicotine dependence, cigarettes, uncomplicated; Z95.2 Presence of prosthetic heart valve; Z79.899 Other long term (current) drug therapy; Z79.01 Long term (current) use of anticoagulants; Z82.3 Family history of stroke; Z81.8 Family history of other mental and behavioral disorders; Z96.643 Presence of artificial hip joint, bilateral

== ENCOUNTER 2018-01-19 18:17 | Inpatient (IN) | payer OTHER ==
[~2018-01-19] VITALS: Ht 157.5 cm; Wt 48.2 kg
[~2018-01-19 18:17] MED LIST changes: -ATROPINE SULFATE 0.1 MG/ML 5ML SYR IV PRN; -CEFAZOLIN 1000MG IV PUSH 7.5 ML IV SCH; -EpHEDrine SULFATE INJ 50 MG/ML AMP IV PRN; -FENTANYL CITRATE INJ 50 MCG/1 ML 2 ML VIAL IV PRN; -LACTATED RINGER'S 1000ML 1,000 ML IV SCH; -ONDANSETRON INJ 2 MG/ML 2 ML VIAL IV PRN; +OXYC-57 PO; -PHENYLEPHRINE 100MCG/ML 5ML SYR IV PRN; +POTA-639 PO; -POTA20TA16 PO; -SODIUM CHLORIDE 0.9% 1000ML 1,000 ML IV SCH
[2018-01-19] MEDS ORDERED: ALBUTEROL 0.083% NEBU SOLN 3 ML VIAL INH STA (18:37)
[2018-01-19 18:42] LABS: BASO % 0.4 %; BASO ABS # 0.03 K/uL (0-0.2); EOS % 3.2 %; EOS ABS # 0.22 K/uL (0-0.5); HEMATOCRIT 31.8 % (37-47); HEMOGLOBIN 10.4 g/dL (12.0-16.0); IG# 0.01 K/uL (0.00-0.02); LYMPH % 13.5 %; LYMPH ABS # 0.93 K/uL (1.2-3.4); MEAN CORPUSCULAR HEMOGLOBIN 36.6 pg (25-34); MEAN CORPUSCULAR HGB CONC 32.7 g/dl (32-36); MEAN PLATELET VOLUME 10.5 fL (7.4-10.4); MONO % 12.4 %; MONO ABS # 0.85 K/uL (0.11-0.59); NEUT % 70.4 %; NEUT ABS # 4.83 K/uL (1.4-6.5); PLATELET COUNT 223 K/uL (130-400); RED CELL DISTRIBUTION WIDTH CV 15.1 % (11.5-14.5); RED CELL DISTRIBUTION WIDTH SD 61.8 fL (36.4-46.3); WHITE BLOOD COUNT 6.87 K/uL (4.8-10.8)
--- NOTE | 2018-01-19 18:49 | DIAGNOSTIC IMAGING REPORT ---
CHEST ONE VIEW PORTABLE CLINICAL HISTORY: EVALUATE RESPIRATORY DISTRESS.DYSPNEA COMPARISON STUDY: 11/13/2017 FINDINGS: Interval consolidative process and/or effusion right lung base. Chronic interstitial and atelectatic change. Mild stable cardiomegaly. Prior median sternotomy. Persistent prominent pulmonary vasculature. IMPRESSION: Interval consolidative process right base most likely representing pleural effusion. Unchanging prominent pulmonary vasculature with plate like atelectasis left base. The above report was generated using voice recognition software. It may contain grammatical, syntax or spelling errors. Electronically signed by: Jorge Lindo M.D. 01/19/2018 6:47 PM Dictated Date/Time: 01/19/2018 6:46 PM
[2018-01-19 19:02] LABS: INR 1.9 (0.9-1.1); PTT PATIENT 33.4 SECONDS (21.0-31.0)
[2018-01-19 19:03] LABS: ALBUMIN 3.4 gm/dl (3.4-5.0); CALCIUM 8.8 mg/dl (8.5-10.1); CREATININE 2.81 mg/dl (0.60-1.20)
[2018-01-19 19:08] LABS: TOTAL PROTEIN 8.1 gm/dl (6.4-8.2)
[2018-01-19] MEDS ORDERED: NITROGLYCERIN 2% OINTMENT 30GM TUBE EXT ONE (19:15)
[2018-01-19] MEDS ORDERED: FUROSEMIDE INJ 20 MG in SYRINGE 0 ML IV ONE (19:15)
[2018-01-19 19:20] VITALS: PULSE 88; O2SAT 97
[2018-01-19] MEDS ORDERED: FUROSEMIDE 40 MG/4 ML VIAL ONE (19:44)
[2018-01-19] MEDS ORDERED: FURO80TA63 PO (20:05)
[2018-01-19] MEDS ORDERED: ONDANSETRON INJ 2 MG/ML 2 ML VIAL IV PRN (20:15)
[2018-01-19] MEDS ORDERED: NITROGLYCERIN 0.4 MG SL PER TAB CHARGE SL PRN (20:15)
[2018-01-19] MEDS ORDERED: ALUMINUM/MAGNESIUM/SIMETH (MAALOX MAX) 30 ML UDC PO PRN (20:15)
[2018-01-19] MEDS ORDERED: NITROGLYCERIN 0.4 MG SL PER TAB CHARGE UT SCH (20:15)
[2018-01-19] MEDS ORDERED: GUAIFENESIN 200 MG TAB PO PRN (20:15)
[2018-01-19] MEDS ORDERED: GUAI1TAB PO (20:17)
[2018-01-19 21:34] VITALS: BP 154/64; PULSE 92; TEMP 36.8; O2SAT 96; Ht 157.5 cm; Wt 48.2 kg
[2018-01-19] MEDS ORDERED: WARFARIN SOD 1.25 MG TAB PO ONE (22:00)
[2018-01-19] MEDS: GABAPENTIN 100 MG CAP PO SCH (22:30)
[2018-01-19] MEDS: RANITIDINE HCL 150 MG TAB PO SCH (22:30)
[2018-01-19] MEDS: PANTOprazole SOD 40 MG TAB PO SCH (22:41)
[2018-01-19] MEDS: POTASSIUM CHLORIDE 20 MEQ TABCR PO SCH (22:41)
[2018-01-19] MEDS: METOPROLOL TARTRATE 50 MG TAB PO SCH (22:42)
[2018-01-20] VITALS (9 sets, daily range): BP systolic 102–133; BP diastolic 49–61; PULSE 71–88; TEMP 36.3–37.2; O2SAT 93–99
[2018-01-20] MEDS: NITROGLYCERIN 2% OINTMENT 30GM TUBE EXT SCH ×4 (00:13→17:41)
--- NOTE | 2018-01-20 00:48 | EMERGENCY ROOM VISIT NOTE ---
History Report prepared by Katiana: Guicho Howell Under the Supervision of: Dr. Phan Adrian D.O. First contact with patient: 18:17 Stated Complaint: SOB, EDEMA History of Present Illness The patient is a 77 year old female who presents to the Emergency Room with complaints of worsening shortness of breath beginning yesterday. The patient states her symptoms began yesterday and worsened today. She reports she has a history of these symptoms before and has a history of CHF and COPD. The patient notes she is also experiencing chest tightness, but this is typical for when she is short of breath. She states she does not weight herself daily like she should and her last weight at her PCP was 116lbs. The patient reports she has a history of two metal valve replacements, one in her aortic valve and mitral valve. She notes she takes Warfarin. The patient denies a runny nose, sorethroat , and a history of an AR. She states nothing makes it better. EMS states the patient is on 2L of O2 at home, and her O2Sat was 90 when they got there. They report the patient's O2Sat went up to 99 when placed on 4L. EMS notes the patient was given a Duoneb in route, and it did not help. Source of History: patient Onset: yesterday Quality: other (SOB) Timing: worsening Modifying Factors (Relieving): other (nothing) Note: Associated symptoms: chest tightness - typical with her SOB Denies: runny nose, sorethroat Review of Systems See HPI for pertinent positives & negatives. A total of 10 systems reviewed and were otherwise negative. Past Medical & Surgical Medical Problems: (1) Atrial fibrillation (2) Chest pain (3) CHF exacerbation (4) CKD (chronic kidney disease), stage IV (5) Dyslipidemia (6) Gout (7) HTN (hypertension) (8) Hypothyroidism (9) Left atrial thrombus (10) Osteoporosis (11) Rheumatic heart disease (12) Spinal stenosis Surgical Problems: (1) H/O aortic valve replacement (2) H/O mitral valve replacement (3) History of hysterectomy (4) Hx of thyroidectomy (5) Status post total hip replacement, left (6) Status post total hip replacement, right Family History Stroke MOTHER Social History Smoking Status: Current Every Day Smoker Housing Status: lives with family Occupation Status: retired Current/Historical Medications Scheduled Allopurinol (Zyloprim), 100 MG PO QAM Calcitriol (Rocaltrol Cap), 1 CAP PO 2XWK Cyanocobalamin (Vitamin B-12 1000 Mcg), 1 TAB PO afternoon Folic Acid (Folic Acid), 1 MG PO QAM Furosemide (Lasix), 160 MG PO BID Gabapentin (Neurontin), 100 MG PO HS Home O2 Therapy (Oxygen), 2 LITERS NA CONTINOUS Hydralazine Hcl (Apresoline), 50 MG PO TID Iron-Vitamin C (Vitron-C), 1 TAB PO QAM Isosorbide Mononitrate Ext Rel (Imdur Ext Rel), 60 MG PO QAM Levothyroxine Sodium (Synthroid), 25 MCG PO QAM Metoprolol Tartrate (Lopressor), 50 MG PO BID Montelukast Sodium (Montelukast Sodium), 1 TAB PO late afternoon Nitroglycerin (Nitrostat), 0.4 MG UT PRN Pantoprazole (Protonix), 40 MG PO BID Potassium Ext Rel (Klor-Con), 20 MEQ PO BID Ranitidine (Zantac), 300 MG PO HS Warfarin Sod (Coumadin), 1 DOSE PO UD Scheduled PRN Guaifenesin (Guaifenesin), 1 TAB PO UD PRN for prn Guaifenesin (Organ-I Nr), 200 MG PO Q8 PRN for Cough Allergies Coded Allergies: Amlodipine (Verified Allergy, Unknown, edema per medical record, 12/12/17) Physical Exam Vital Signs Date Time Temp Pulse Resp B/P (MAP) Pulse Ox O2 Delivery O2 Flow Rate FiO2 01/19/18 20:00 93 21 144/72 99 BiPAP 40 01/19/18 19:31 91 15 141/76 95 BiPAP 40 01/19/18 19:20 88 97 40 01/19/18 18:37 94 Nasal Cannula 4.0 01/19/18 18:37 37.0 84 20 133/62 94 Nasal Cannula 4.0 01/19/18 18:17 96 Nasal Cannula 4.0 01/19/18 18:17 96 Nasal Cannula 4.0 Physical Exam GENERAL: Sitting up in bed, dyspneic with conversation, non-toxic EYE EXAM: normal conjunctiva. OROPHARYNX: no exudate, no erythema, lips, buccal mucosa, and tongue normal and mucous membranes are moist NECK: supple, no nuchal rigidity, no adenopathy, non-tender. Positive JVD. LUNGS: Diffuse wheezes bilaterally. Normal chest wall mechanics HEART: Systolic ejection murmur, S1 normal and S2 normal ABDOMEN: abdomen soft, non-tender, normo-active bowel sounds, no masses, no rebound or guarding. BACK: Back is symmetrical on inspection and there is no deformity, no midline tenderness, no CVA tenderness. SKIN: no rashes and no bruising UPPER EXTREMITIES: upper extremities are grossly normal. LOWER EXTREMITIES: Faint pitting edema bilaterally. NEURO EXAM: Normal sensorium, cranial nerves II-XII grossly intact, normal speech, no gross weakness of arms, no gross weakness of legs. Medical Decision & Procedures ER Provider Diagnostic Interpretation: Radiology results as stated below per my review and the radiologist's interpretation: CHEST ONE VIEW PORTABLE CLINICAL HISTORY: EVALUATE RESPIRATORY DISTRESS.DYSPNEA COMPARISON STUDY: 11/13/2017 FINDINGS: Interval consolidative process and/or effusion right lung base. Chronic interstitial and atelectatic change. Mild stable cardiomegaly. Prior median sternotomy. Persistent prominent pulmonary vasculature. IMPRESSION: Interval consolidative process right base most likely representing pleural effusion. Unchanging prominent pulmonary vasculature with plate like atelectasis left base. The above report was generated using voice recognition software. It may contain grammatical, syntax or spelling errors. Electronically signed by: Jorge Lindo M.D. 01/19/2018 6:47 PM Laboratory Results 01/19/18 17:25 Red Blood Count 2.84, Mean Corpuscular Volume 112.0, Mean Corpuscular Hemoglobin 36.6, Mean Corpuscular Hemoglobin Concent 32.7, Mean Platelet Volume 10.5, Neutrophils (%) (Auto) 70.4, Lymphocytes (%) (Auto) 13.5, Monocytes (%) ( Auto) 12.4, Eosinophils (%) (Auto) 3.2, Basophils (%) (Auto) 0.4, Neutrophils # (Auto) 4.83, Lymphocytes # (Auto) 0.93, Monocytes # (Auto) 0.85, Eosinophils # ( Auto) 0.22, Basophils # (Auto) 0.03 01/19/18 17:25 Test 01/19/18 17:25 01/19/18 20:05 White Blood Count 6.87 K/uL (4.8-10.8) Red Blood Count 2.84 M/uL (4.2-5.4) Hemoglobin 10.4 g/dL (12.0-16.0) Hematocrit 31.8 % (37-47) Mean Corpuscular Volume 112.0 fL (80-100) Mean Corpuscular Hemoglobin 36.6 pg (25-34) Mean Corpuscular Hemoglobin Concent 32.7 g/dl (32-36) Platelet Count 223 K/uL (130-400) Mean Platelet Volume 10.5 fL (7.4-10.4) Neutrophils (%) (Auto) 70.4 % Lymphocytes (%) (Auto) 13.5 % Monocytes (%) (Auto) 12.4 % Eosinophils (%) (Auto) 3.2 % Basophils (%) (Auto) 0.4 % Neutrophils # (Auto) 4.83 K/uL (1.4-6.5) Lymphocytes # (Auto) 0.93 K/uL (1.2-3.4) Monocytes # (Auto) 0.85 K/uL (0.11-0.59) Eosinophils # (Auto) 0.22 K/uL (0-0.5) Basophils # (Auto) 0.03 K/uL (0-0.2) RDW Standard Deviation 61.8 fL (36.4-46.3) RDW Coefficient of Variation 15.1 % (11.5-14.5) Immature Granulocyte % (Auto) 0.1 % Immature Granulocyte # (Auto) 0.01 K/uL (0.00-0.02) Macrocytosis PRESENT Prothrombin Time 19.3 SECONDS (9.0-12.0) Prothromb Time International Ratio 1.9 (0.9-1.1) Activated Partial Thromboplast Time 33.4 SECONDS (21.0-31.0) Partial Thromboplastin Ratio 1.3 Anion Gap 9.0 mmol/L (3-11) Est Creatinine Clear Calc Drug Dose 13.3 ml/min Estimated GFR () 18.0 Estimated GFR (Non- 15.6 BUN/Creatinine Ratio 24.0 (10-20) Calcium Level 8.8 mg/dl (8.5-10.1) Total Bilirubin 0.7 mg/dl (0.2-1) Aspartate Amino Transf (AST/SGOT) 22 U/L (15-37) Alanine Aminotransferase (ALT/SGPT) 14 U/L (12-78) Alkaline Phosphatase 107 U/L (45-117) Troponin I 0.022 ng/ml (0-0.045) Pro-B-Type Natriuretic Peptide 94370 pg/ml (0-1800) Total Protein 8.1 gm/dl (6.4-8.2) Albumin 3.4 gm/dl (3.4-5.0) Globulin 4.7 gm/dl (2.5-4.0) Albumin/Globulin Ratio 0.7 (0.9-2) Urine Color YELLOW Urine Appearance CLEAR (CLEAR) Urine pH 5.0 (4.5-7.5) Urine Specific [place] 1.012 (1.000-1.030) Urine Protein NEG (NEG) Urine Glucose (UA) NEG (NEG) Urine Ketones NEG (NEG) Urine Occult Blood NEG (NEG) Urine Nitrite NEG (NEG) Urine Bilirubin NEG (NEG) Urine Urobilinogen NEG (NEG) Urine Leukocyte Esterase NEG (NEG) Laboratory results per my review. Medications Administered Medications (Trade) Dose Ordered Sig/Shana Route Start Time Stop Time Status Last Admin Dose Admin Albuterol Sulfate (Ventolin 0.083% 2.5MG/3ML Neb) 2.5 mg NOW STAT INH 01/19/18 18:37 01/19/18 18:38 DC 01/19/18 18:53 2.5 MG Furosemide 20 mg/ Syringe 2 ml @ 4 mls/min ONE ONCE IV 01/19/18 19:15 01/19/18 19:16 DC 01/19/18 19:55 4 MLS/MIN Nitroglycerin (Nitroglycerin 2% Oint) 1 inch NOW ONCE EXT 01/19/18 19:15 01/19/18 19:16 DC 01/19/18 19:55 1 INCH ECG Per My Interpretation Indication: SOB/dyspnea Rate (beats per minute): 88 Rhythm: atrial fibrillation Findings: nonspecific-ST abn (Septal), PVC, other (Poor base line) Comparison ECG Date: 11/13/17 Change: Nonspecific ST changes are new. ED Course ED COURSE: Vital signs were reviewed and showed hypoxia. The patients medical record was reviewed The above diagnostic studies were performed and reviewed. ED treatments and interventions as stated above. 1821: The patient was evaluated in room B05. A complete history and physical examination was performed. 1836: Ordered Albuterol Sulfate 2.5mg INH 1909: I reevaluated the patient. She still cannot catch her breath. She will be placed on BiPAP 1914: Ordered Nitroglycerin 1 inch EXT, Furosemide 20 mg/Syringe 2 ml @ 4 mls/ min IV 1922: I discussed the patient's case with Eliza Richardson. The patient will be evaluated for further evaluation. 1923: Upon reevaluation, the patient is resting.I discussed my findings with the patient and she understands and agrees with the treatment plan. Based on the patients age, coexisting illnesses, exam and lab findings the decision to treat as an inpatient was made. The patient remained stable while under my care. The patient will be evaluated for further management. Medical Decision Differential diagnoses includes but is not limited to pneumonia, bronchitis, COPD/Asthma exacerbation, pneumothorax, pulmonary embolism, congestive heart failure, acute coronary syndrome. Patient is a 77-year-old female that presents the ER for shortness of breath which started yesterday. Patient has a history of COPD and CHF. Patient does admit to chest tightness with this. On exam she has JVD wheezing crackles and pitting edema. CBC along with BMP shows a creatinine of 2.8 fairly consistent with baseline. Troponin was detectable but not positive. BNP was elevated 11, 000. INR was therapeutic at 2. UA was negative. Chest x-ray shows a right pleural effusion. Updated patient at bedside. She was placed on BiPAP. She felt significantly better. She is given a dose of Lasix and Nitropaste. She was admitted to internal medicine for CHF hypoxia and pleural effusion Medication Reconcilliation Current Medication List: was personally reviewed by ia Blood Pressure Screening Patient's blood pressure: Elevated blood pressure Monitored by hospitalist. Consults Time Called: 1917 Consulting Physician: Eliza Richardson Returned Call: 1922 I discussed the patient's case with Eliza Richardson. The patient will be evaluated for further evaluation. Impression Primary Impression: CHF (congestive heart failure) Additional Impressions: Pleural effusion Hypoxia Critical Care I have personally spent 35 minutes of critical care time in the direct management of this patient. This includes bedside care, interpretation of diagnostic studies, and testing, discussion with consultants, patient, and family members, and other required patient management activities. This 35 minutes is in excess of all separately billable procedures. Scribe Attestation The scribe's documentation has been prepared under my direction and personally reviewed by me in its entirety. I confirm that the note above accurately reflects all work, treatment, procedures, and medical decision making performed by me. Departure Information Dispostion Being Evaluated By Hospitalist Lana Mcnally M.D. (PCP) Problem Qualifiers Primary Impression: CHF (congestive heart failure) Heart failure type: unspecified Heart failure chronicity: acute Qualified Codes: I50.9 - Heart failure, unspecified
--- NOTE | 2018-01-20 00:52 | HISTORY & PHYSICAL EXAMINATION ---
DATE OF ADMISSION: 01/19/2018 CHIEF COMPLAINT: Shortness of breath. HISTORY OF PRESENT ILLNESS: This is a 77-year-old female with past medical history significant for chronic diastolic heart failure, with a preserved EF of 60%, rheumatic heart disease, status post mechanical AVR and MVR, on Coumadin, hypertension, COPD, ongoing tobacco abuse, hyperlipidemia, chronic kidney disease currently stage IV, baseline creatinine around 2.6, multiple admissions for the congestive heart failure and currently she is on Lasix 160 mg p.o. b.i.d., last admission was in September. She was doing okay, but a few days ago, she had the medication mixed up. She got a new prescription for Lasix, and instead of getting 160 mg b.i.d., she was taking 80 mg b.i.d., and since yesterday, she was getting short of rate, and she lives alone When daughter went to see her, she was having shortness of breath, and she was brought in here, and also, she was having increasing lower extremity edema over the last couple of days, and chest x-ray showed congestion, and we are called for admission. The patient says she is compliant with her salt intake because of chronic kidney disease and CHF. She denies any headaches, no dizziness, no blurred vision, no earache. No runny nose. She has some cough with some phlegm, which is chronic for her. Denies any sore throat. There is no difficulty swallowing. She has some chest tightness. No fever, no chills, no nausea, no vomiting, no abdominal pain. Appetite is not that great. Normal bowel and bladder movements. No blood in the stools, no blood in the urine, no burning micturition. No skin rash. Lower extremity edema present. The patient says she does not use pillows or elevation of bed in the night, and she usually frequently gets up in the night from short of breath, and as per daughter, she is noncompliant with elevation of the head while sleeping. ALLERGIES: AMLODIPINE. PAST MEDICAL HISTORY: As mentioned above. PAST SURGICAL HISTORY: EGD, right hip replacement, thyroidectomy, left total hip replacement, total hysterectomy. MEDICATIONS: The patient is on albuterol 2 puffs every 6 hours p.r.n., allopurinol 100 mg p.o. daily, calcitriol 0.25 mcg twice weekly, vitamin B12 of 1000 mcg p.o. daily, folic acid 1 mg p.o. daily, Lasix 160 mg p.o. b.i.d., gabapentin 100 mg p.o. at bedtime, hydralazine 50 mg p.o. t.i.d., iron, vitamin C 125 mg p.o. daily, Imdur 60 mg p.o. daily, Klor-Con 20 mEq b.i.d., levothyroxine 25 mcg p.o. daily, Lopressor 50 mg p.o. b.i.d., Singulair 10 mg p.o. daily, Nitrostat 0.4 mg sublingual, oxygen 2 L a day continuous, Protonix 40 mg b.i.d., Zantac 300 mg p.o. at bedtime, Ellipta 62.5/25 mcg 1 puff daily, Coumadin 2.5 mg daily except on Friday, Friday, and Friday when she takes 3.75 mg. FAMILY HISTORY: Significant for father who had gastrointestinal disorder and lung disorder. Mother has CVA and dementia. SOCIAL HISTORY: Smokes 1 pack a day for last 40 years. Alcohol glass of wine daily. No drug use. , lives with her . REVIEW OF SYMPTOMS: As per HPI. Rest of review of systems negative. PHYSICAL EXAMINATION: GENERAL: The patient is of moderate build. The patient is not in distress. VITAL SIGNS: Temperature 37, pulse 80, respiratory rate 20, blood pressure 133/64, oxygen saturation 94% on 4 L. HEENT: No pallor, no icterus. Pupils equal, round, reactive. NECK: No JVD, no neck masses, no carotid bruits. CARDIOVASCULAR SYSTEM: S1 and S2, regular rate and rhythm, no murmur, no gallop. RESPIRATORY SYSTEM: Normal AP diameter. No accessory muscle use. Bibasilar crackles present. No wheezing. ABDOMEN: Soft, bowel sounds present, nontender, no distention. CENTRAL NERVOUS SYSTEM: Cranial nerves II through XII grossly intact. Nonfocal. EXTREMITIES: Lower extremity edema +2 present. No erythema seen. LABORATORIES: WBC 6.8, hemoglobin 10.4, hematocrit 31.8, platelets 223. Sodium 138, potassium 4, chloride 103, BUN 67, creatinine 2.8, serum glucose 98, calcium 8.8, total bilirubin 0.7, AST 32, ALT 14, alkaline phosphatase 107. Troponin I 0.02, BNP 10,800. PT 19.3, INR 1.9, APTT 33.4. Urinalysis is pending. IMAGING: Chest x-ray: right pleural effusion, mild congestion. EKG: Atrial fibrillation, rate of 88, ST-T wave abnormality seen but poor quality EKG. ASSESSMENT AND PLAN: This is a 77-year-old female who presents with acute congestive heart failure. 1. Acute on chronic diastolic congestive heart failure. The patient got mixed up with her Lasix prescription where by mistake instead of 160 b.i.d. she was taking 80 mg b.i.d. for last 2 days, and she developed lower extremity edema and shortness of breath, but today in the evening, she took 160 mg. A dose of IV Lasix 20 was given in the ER. We will place her on BiPAP for now, daily weights, I's and O's, place an IV Lasix 80 b.i.d. in morning and consult cardiology for further recommendation. On Nitro paste.Close monitoring, tele floor. The patient is compliant with salt intake .Fluid restriction 1500 mL/day. 2. Acute kidney injury on chronic kidney stage IV. Baseline creatinine is 2.6. Point of care creatinine of 2.8. Most likely cardiorenal. We will monitor with the diuretics. Nephrology consulted. 3. History of chronic obstructive pulmonary disease. Continue Ellipta and albuterol p.r.n. Currently stable. 4. Hypertension. Continue hydralazine, Imdur, Lopressor. Monitor the blood pressure. She is also placed on nitroglycerin paste, which we will continue for now. 5. Gastroesophageal reflux disease. Continue Protonix and Zantac. 6. Atrial fibrillation. Rate is under control on Lopressor and Coumadin. Monitor the INR. 7.s/p MVR and AVR on Coumadin. Monitor INR. 8. Chronic respiratory failure secondary to chronic obstructive pulmonary disease and congestive heart failure. We will monitor. 9. Anemia of chronic disease. Hemoglobin seems at baseline. We will monitor. 10. Tobacco use. smoking cessation counseling. 11. Deep venous thrombosis prophylaxis, on Coumadin and sequential compression devices. 12. Code status. Full code only if the chance of recovery. 13. Disposition: Admit to tele floor. PT and OT prior to discharge. Social service to help with discharge planning. SAMMIE
[2018-01-20 04:57] LABS: BASO % 0.4 %; BASO ABS # 0.02 K/uL (0-0.2); EOS % 2.8 %; EOS ABS # 0.13 K/uL (0-0.5); IG# 0.01 K/uL (0.00-0.02); LYMPH % 10.5 %; LYMPH ABS # 0.49 K/uL (1.2-3.4); MEAN CELL VOLUME 112.4 fL (80-100); MEAN CORPUSCULAR HEMOGLOBIN 36.1 pg (25-34); MEAN CORPUSCULAR HGB CONC 32.1 g/dl (32-36); MEAN PLATELET VOLUME 9.7 fL (7.4-10.4); MONO % 15.2 %; MONO ABS # 0.71 K/uL (0.11-0.59); NEUT % 70.9 %; NEUT ABS # 3.31 K/uL (1.4-6.5); PLATELET COUNT 170 K/uL (130-400); RED CELL DISTRIBUTION WIDTH CV 15.3 % (11.5-14.5); WHITE BLOOD COUNT 4.67 K/uL (4.8-10.8)
[2018-01-20 05:01] LABS: INR 1.9 (0.9-1.1)
[2018-01-20 05:19] LABS: CALCIUM 8.8 mg/dl (8.5-10.1); CREATININE 2.77 mg/dl (0.60-1.20); POTASSIUM 3.9 mmol/L (3.5-5.1)
[2018-01-20] MEDS: LEVOTHYROXINE 25 MCG TAB PO SCH (06:01)
[2018-01-20] MEDS: FUROSEMIDE INJ 80 MG in SYRINGE 0 ML IV SCH ×3 (08:18→20:43)
[2018-01-20] MEDS: METOPROLOL TARTRATE 50 MG TAB PO SCH ×2 (08:19→20:45)
[2018-01-20] MEDS: ISOSORBIDE MONONITRATE 60 MG TABCR PO SCH (08:19)
[2018-01-20] MEDS: MONTELUKAST SOD 10 MG TAB PO SCH (08:20)
[2018-01-20] MEDS: ALLOPURINOL 100 MG TAB PO SCH (08:20)
[2018-01-20] MEDS: CYANOCOBALAMIN 500 MCG TAB (VIT B-12) PO SCH (08:20)
[2018-01-20] MEDS: POTASSIUM CHLORIDE 20 MEQ TABCR PO SCH ×2 (08:20→20:44)
[2018-01-20] MEDS: PANTOprazole SOD 40 MG TAB PO SCH ×2 (08:51→20:44)
[2018-01-20] MEDS ORDERED: NON-FORMULARY MEDICATION (Iron-Vitamin C (Vitron-C) 1 TAB) PO SCH (09:00)
[2018-01-20] MEDS ORDERED: WARFARIN SOD 2.5 MG TAB PO SCH ×2 (09:00→16:00)
[2018-01-20] MEDS ORDERED: UMEC1AER INH (10:29)
[2018-01-20] MEDS ORDERED: VNTHFA/IN INH (10:29)
[2018-01-20] MEDS ORDERED: ALBUTEROL HFA 8 GM INHALER INH PRN (10:30)
[2018-01-20] MEDS ORDERED: HEPARIN IV LOW DOSE NO BOLUS STA (11:12)
[2018-01-20 12:09] LABS: BASO % 0.2 %; BASO ABS # 0.01 K/uL (0-0.2); EOS % 2.3 %; EOS ABS # 0.12 K/uL (0-0.5); HEMATOCRIT 30.6 % (37-47); HEMOGLOBIN 9.8 g/dL (12.0-16.0); IG# 0.01 K/uL (0.00-0.02); LYMPH % 4.9 %; LYMPH ABS # 0.26 K/uL (1.2-3.4); MEAN CELL VOLUME 113.8 fL (80-100); MEAN CORPUSCULAR HEMOGLOBIN 36.4 pg (25-34); MONO % 15.6 %; MONO ABS # 0.82 K/uL (0.11-0.59); NEUT % 76.8 %; NEUT ABS # 4.04 K/uL (1.4-6.5); PLATELET COUNT 187 K/uL (130-400); RED CELL DISTRIBUTION WIDTH CV 15.5 % (11.5-14.5); RED CELL DISTRIBUTION WIDTH SD 63.6 fL (36.4-46.3); WHITE BLOOD COUNT 5.26 K/uL (4.8-10.8)
[2018-01-20 12:18] LABS: INR 1.9 (0.9-1.1); PTT PATIENT 32.8 SECONDS (21.0-31.0)
[2018-01-20] MEDS: HEPARIN 25,000 UNIT/500ML D5W 500 ML IV SCH ×2 (12:43→20:42)
--- NOTE | 2018-01-20 17:05 | Nephrology Consultation ---
Nephrology Consultation Date of Consultation: January 20, 2018. Attending Physician: Dr Brock Requesting Physician: Dr Bhatia Reason for Consultation: JUAN C on CKD4 History of Present Illness 77 year old female admitted yesterday with diastolic HF exacerbation after inadvertently lowering her lasix dose. she has baseline CKD 4 as well as hx of chronic diastolic HF, rheumatic heart disease s/p mechanical AVR/MVR, active tobacco abuse, hypothryoid, HTN, severe COPD home 02 dependent 2LNC. Her presenting creatinine was 2.8; stable this am. Her baseline creatinine is widely variable but in 2018 runs mid 2's. She has frequent admissions here for volume overload, most recently 09/2017. She takes lasix 160 mg bid at home as well as hydralazine tid, a BB, K supplements 20 mEq bid. However for a few days prior to admission there was confusion w/ her medication: she took 80 mg bid lasix instead of 160 mg bid. In this timeframe she developed worsening dyspnea, edema and was brought to the ER for eval. Follows w/ Dr. Burgess as an outpt. Feels improved today; states that when she arrived, "my feet were like elephants." Seen on rounds this am at 0920. States her edema is improved but cont to note orthopnea, exertional dyspnea, chest tightness. Past Medical/Surgical History Medical Problems: (1) CHF (congestive heart failure) Status: Acute (2) CHF (congestive heart failure) Status: Acute (3) Hypoxia Status: Acute (4) Pleural effusion Status: Acute -as per HPI; also s/p R/L total hip replacements, total hysterectomy, thyroidectomy Family History Stroke MOTHER Social History Smoking Status: Current Every Day Smoker Alcohol Use: none Drug Use: none Housing Status: lives with family Occupation Status: retired Allergies Coded Allergies: Amlodipine (Verified Allergy, Unknown, edema per medical record, 12/12/17) Medications Current Inpatient Medications Medications (Trade) Dose Ordered Sig/Shana Route Start Time Stop Time Status Last Admin Dose Admin Acetaminophen (Tylenol Tab) 650 mg Q4H PRN PO 01/19/18 20:15 02/18/18 20:14 Al Hydrox/Mg Hydrox/Simethicone (Maalox Max Susp) 15 ml Q4H PRN PO 01/19/18 20:15 02/18/18 20:14 Ondansetron HCl (Zofran Inj) 4 mg Q6H PRN IV 01/19/18 20:15 02/18/18 20:14 Nitroglycerin (Nitrostat Tab) 0.4 mg UD PRN SL 01/19/18 20:15 02/18/18 20:14 Nitroglycerin (Nitroglycerin 2% Oint) 1 inch Q6H EXT 01/20/18 00:00 02/19/18 00:00 01/20/18 06:00 1 INCH Polyethylene (Miralax Powder Packet) 17 gm DAILY PRN PO 01/19/18 20:15 02/18/18 20:14 Allopurinol (Zyloprim Tab) 100 mg QAM PO 01/20/18 09:00 02/19/18 08:59 Calcitriol (Rocaltrol Cap) 0.25 mcg MoTh@1400 PO 01/22/18 14:00 02/21/18 13:59 Cyanocobalamin (Vitamin B-12 Tab) 1,000 mcg DAILY PO 01/20/18 09:00 02/19/18 08:59 Folic Acid (Folvite Tab) 1 mg QAM PO 01/20/18 09:00 02/19/18 08:59 Gabapentin (Neurontin Cap) 100 mg HS PO 01/19/18 21:00 02/18/18 20:59 01/19/18 22:30 100 MG Guaifenesin (Organidin Nr Tab) 200 mg Q6 PRN PO 01/19/18 20:15 02/18/18 20:14 Hydralazine HCl (Apresoline Tab) 50 mg TID PO 01/19/18 21:00 02/18/18 20:59 01/19/18 22:31 50 MG Isosorbide Mononitrate (Imdur Ext Rel Tab) 60 mg QAM PO 01/20/18 09:00 02/19/18 08:59 Levothyroxine Sodium (Synthroid Tab) 25 mcg DAILYBB PO 01/20/18 06:00 02/19/18 05:59 01/20/18 06:01 25 MCG Metoprolol Tartrate (Lopressor Tab) 50 mg BID PO 01/19/18 22:00 02/18/18 21:59 01/19/18 22:42 50 MG Montelukast Sodium (Singulair Tab) 10 mg DAILY PO 01/20/18 09:00 02/19/18 08:59 Pantoprazole Sodium (Protonix Tab) 40 mg BID PO 01/19/18 22:00 02/18/18 21:59 01/19/18 22:41 40 MG Potassium Chloride (Klor-Con Tab) 20 meq BID PO 01/19/18 22:00 02/18/18 21:59 01/19/18 22:41 20 MEQ Ranitidine HCl (zANTac TAB) 300 mg HS PO 01/19/18 21:00 02/18/18 20:59 01/19/18 22:30 300 MG Furosemide 80 mg/ Syringe 8 ml @ 4 mls/min BID IV 01/20/18 08:00 02/19/18 07:59 Warfarin Sodium (Coumadin Tab) 2.5 mg TuWeThSa@1600 PO 01/20/18 16:00 02/19/18 15:59 Warfarin Sodium (Coumadin Tab) 3.75 mg SuMoFr@1600 PO 01/23/18 16:00 02/22/18 15:59 Home Meds and Scripts Medications Dose Route/Sig Max Daily Dose Days Date Category Dose Instructions Organ-I Nr (Guaifenesin) 200 Mg Tab 200 Mg PO Q8 PRN 01/19/18 Reported Lasix (Furosemide) 80 Mg Tab 160 Mg PO BID 01/19/18 Reported Klor-Con (Potassium Chloride) 20 Meq Tabcr 20 Meq PO BID 11/13/17 Reported takes one in am and takes one in early afternoon Oxygen Gas 2 Liters NA CONTINOUS 11/13/17 Reported Nitrostat (Nitroglycerin) 0.4 Mg Tab 0.4 Mg UT PRN 11/13/17 Reported Guaifenesin 200 Mg Tab 1 Tab PO UD PRN 11/13/17 Reported Protonix (Pantoprazole Sodium) 40 Mg Tab 40 Mg PO BID 10/09/17 Reported Vitron-C (Iron-Vitamin C) 1 Tab Tab 1 Tab PO QAM 10/09/17 Reported Folic Acid 1 Mg Tab 1 Mg PO QAM 10/09/17 Reported Imdur Ext Rel (Isosorbide Mononitrate) 60 Mg Ertab 60 Mg PO QAM 10/09/17 Reported Coumadin (Warfarin Sod) 2.5 Mg Tab 1 Dose PO UD 30 06/09/17 Reported UD BY ANTICOAGULATION CLINIC 2.5MG EVERY FRIDAY/FRIDAY/FRIDAY/FRIDAY. 3.75 MG EVERY FRIDAY/FRIDAY/FRIDAY OF 01/19/18. Zantac (Ranitidine HCl) 300 Mg Tab 300 Mg PO HS 03/17/17 Reported Apresoline (Hydralazine Hcl) 50 Mg Tab 50 Mg PO TID 03/17/17 Reported Montelukast Sodium 10 Mg Tab 1 Tab PO LATE AFTERNOON 03/17/17 Reported Neurontin (Gabapentin) 100 Mg Cap 100 Mg PO HS 03/17/17 Reported Vitamin B-12 1000 Mcg (Cyanocobalamin) 1,000 Mcg Tab 1 Tab PO AFTERNOON 30 03/17/17 Reported Rocaltrol Cap (Calcitriol) 0.25 Mcg Cap 1 Cap PO 2XWK 30 03/17/17 Reported fri, - takes in the afternoon Synthroid (Levothyroxine Sodium) 25 Mcg Tab 25 Mcg PO QAM 03/30/12 Reported Zyloprim (Allopurinol) 100 Mg Tab 100 Mg PO QAM 03/30/12 Reported Lopressor (Metoprolol Tartrate) 50 Mg Tab 50 Mg PO BID 03/30/12 Reported Review of Systems Constitutional: + weakness, + fatigue, No fever Eyes: No worsening of vision ENT: No hearing loss Respiratory: + cough, + wheezing, + shortness of breath, + dyspnea on exertion , + dyspnea at rest, + problem reported (chest tightness) Cardiac: + orthopnea, + edema Abdomen: No pain, No nausea, No vomiting, No diarrhea, No constipation Musculoskeletal: No joint pain, No muscle pain Female : No dysuria, No urinary frequency, No hematuria Neuro: + weakness, + balance problems, No memory loss Psych: No depression symptoms, No anxiety Heme: No abnormal bleeding/bruising Endo: + fatigue Skin: No rash, No itch, No new/changing skin lesions Physical Exam Date Time Temp Pulse Resp B/P (MAP) Pulse Ox O2 Delivery O2 Flow Rate FiO2 01/20/18 08:12 36.8 88 22 119/49 (72) 93 Nasal Cannula 3.0 01/20/18 06:00 75 115/52 (73) 01/20/18 04:00 36.7 81 17 118/49 (72) 97 Nasal Cannula 4.0 01/20/18 04:00 97 Nasal Cannula 4.0 01/20/18 00:23 37.2 80 18 102/60 (74) 97 01/20/18 00:00 97 Nasal Cannula 4.0 01/19/18 21:34 36.8 92 24 154/64 96 Nasal Cannula 4.0 01/19/18 20:55 93 23 138/70 96 01/19/18 20:31 88 23 138/70 98 BiPAP 40 01/19/18 20:00 93 21 144/72 99 BiPAP 40 01/19/18 19:31 91 15 141/76 95 BiPAP 40 01/19/18 19:20 88 97 40 01/19/18 18:37 94 Nasal Cannula 4.0 01/19/18 18:37 37.0 84 20 133/62 94 Nasal Cannula 4.0 01/19/18 18:17 96 Nasal Cannula 4.0 01/19/18 18:17 96 Nasal Cannula 4.0 General Appearance: WD/WN, + mild distress (slight sob w/ speech still or exam maneuvers) Eyes: EOMI ENT: hearing grossly normal Neck: supple Respiratory/Chest: + decreased breath sounds, + rhonchi, + wheezing (marked christian on inspiration and occasionally w/ expiratoin) Cardiovascular: regular rate, rhythm, + systolic murmur (valve click), + pertinent finding (edema trace - 1+) Abdomen: normal bowel sounds (no real), non tender, soft Extremities: + swelling (trace-1+) Neurologic/Psych: alert, normal mood/affect, oriented x 3 Skin: no jaundice, warm/dry, no rash Diagnostics Last 24 Hours Test 01/19/18 17:25 01/19/18 20:05 01/20/18 04:27 White Blood Count 6.87 K/uL 4.67 K/uL Red Blood Count 2.84 M/uL 2.49 M/uL Hemoglobin 10.4 g/dL 9.0 g/dL Hematocrit 31.8 % 28.0 % Mean Corpuscular Volume 112.0 fL 112.4 fL Mean Corpuscular Hemoglobin 36.6 pg 36.1 pg Mean Corpuscular Hemoglobin Concent 32.7 g/dl 32.1 g/dl Platelet Count 223 K/uL 170 K/uL Mean Platelet Volume 10.5 fL 9.7 fL Neutrophils (%) (Auto) 70.4 % 70.9 % Lymphocytes (%) (Auto) 13.5 % 10.5 % Monocytes (%) (Auto) 12.4 % 15.2 % Eosinophils (%) (Auto) 3.2 % 2.8 % Basophils (%) (Auto) 0.4 % 0.4 % Neutrophils # (Auto) 4.83 K/uL 3.31 K/uL Lymphocytes # (Auto) 0.93 K/uL 0.49 K/uL Monocytes # (Auto) 0.85 K/uL 0.71 K/uL Eosinophils # (Auto) 0.22 K/uL 0.13 K/uL Basophils # (Auto) 0.03 K/uL 0.02 K/uL RDW Standard Deviation 61.8 fL 62.0 fL RDW Coefficient of Variation 15.1 % 15.3 % Immature Granulocyte % (Auto) 0.1 % 0.2 % Immature Granulocyte # (Auto) 0.01 K/uL 0.01 K/uL Macrocytosis PRESENT PRESENT Prothrombin Time 19.3 SECONDS 19.4 SECONDS Prothromb Time International Ratio 1.9 1.9 Activated Partial Thromboplast Time 33.4 SECONDS Partial Thromboplastin Ratio 1.3 Sodium Level 138 mmol/L 139 mmol/L Potassium Level 4.0 mmol/L 3.9 mmol/L Chloride Level 103 mmol/L 104 mmol/L Carbon Dioxide Level 26 mmol/L 27 mmol/L Anion Gap 9.0 mmol/L 8.0 mmol/L Blood Urea Nitrogen 67 mg/dl 71 mg/dl Creatinine 2.81 mg/dl 2.77 mg/dl Est Creatinine Clear Calc Drug Dose 13.3 ml/min 13.5 ml/min Estimated GFR () 18.0 18.4 Estimated GFR (Non- 15.6 15.8 BUN/Creatinine Ratio 24.0 25.8 Random Glucose 98 mg/dl 89 mg/dl Calcium Level 8.8 mg/dl 8.8 mg/dl Total Bilirubin 0.7 mg/dl Aspartate Amino Transf (AST/SGOT) 22 U/L Alanine Aminotransferase (ALT/SGPT) 14 U/L Alkaline Phosphatase 107 U/L Troponin I 0.022 ng/ml 0.029 ng/ml Pro-B-Type Natriuretic Peptide 72223 pg/ml Total Protein 8.1 gm/dl Albumin 3.4 gm/dl Globulin 4.7 gm/dl Albumin/Globulin Ratio 0.7 Urine Color YELLOW Urine Appearance CLEAR Urine pH 5.0 Urine Specific [place] 1.012 Urine Protein NEG Urine Glucose (UA) NEG Urine Ketones NEG Urine Occult Blood NEG Urine Nitrite NEG Urine Bilirubin NEG Urine Urobilinogen NEG Urine Leukocyte Esterase NEG Magnesium Level 2.3 mg/dl Diagnostic Radiology: CXR Interval consolidative process right base most likely representing pleural effusion. Unchanging prominent pulmonary vasculature with plate like atelectasis left base. Assessment & Plan 77 y/o F w/ CKD 4, recurrent volume overload admitted w/ acute on chronic diastolic HF after inadvertently lowering her lasix dose at home for a few days. CXR w/ presumed pleural effusion versus consolidation L base; no florid overload. Also w/ PMH severe 02 dependent COPD, active tobacco abuse, chronic diastolic HF w/ frequent admissions for vol OL, prosthetic MVR/AVR on coumadin. JUAN C on CKD4 Near outpatient baseline; not oliguric. Chemistries remain acceptable. Urine sediment bland. -no indication for urgent dialysis -she had 60 mg IV lasix last evening and currently on lasix 80 mg IV bid >> ok from renal standpoint to increase to tid 80mg IV if no improvement during day in respiratory status w/ optimal resp care -bmp daily Anemia of chronic disease -may benefit from epo when clinically stable -monitor daily -will check iron stores in am Appreciate consult; will follow with you.
--- NOTE | 2018-01-20 18:25 | Progress Note ---
Medicine Progress Note Date & Time of Visit: January 20, 2018 at 18:15. Subjective Seen resting in bed, comfortable overall States her breathing is somewhat improved compared to admission Still dyspneic with minimal exertion No active chest pain, shortness of breath, palpitations, dizziness No other symptoms Objective Last 8 Hrs Date Time Temp Pulse Resp B/P (MAP) Pulse Ox O2 Delivery O2 Flow Rate FiO2 01/20/18 16:00 Nasal Cannula 4.0 01/20/18 15:26 37.1 73 18 133/52 (79) 98 Nasal Cannula 4.0 01/20/18 12:00 Nasal Cannula 4.0 01/20/18 12:00 36.8 80 16 114/61 (78) 99 Nasal Cannula 4.0 Physical Exam: General-oriented 3, not in distress, speaking in sentences, no effort, no accessory muscle use Head- atraumatic Eyes- PERRL, EOMI, anicteric ENT- oropharynx clear Neck- supple, no JVD, no adenopathy, no thyromegaly Lungs-mild rales at the bases bilaterally, no wheezing Heart-normal rate, regular rhythm; no murmur Abdomen- normal bowel sounds, soft, nontender, nondistended Extremities- no pretibial edema, no calf tenderness; peripheral pulses intact Neuro- alert, oriented x 3 no gross focal neurologic deficits Skin- warm & dry Laboratory Results: Last 24 Hours Test 01/19/18 20:05 01/20/18 04:27 01/20/18 11:42 Urine Color YELLOW Urine Appearance CLEAR Urine pH 5.0 Urine Specific [place] 1.012 Urine Protein NEG Urine Glucose (UA) NEG Urine Ketones NEG Urine Occult Blood NEG Urine Nitrite NEG Urine Bilirubin NEG Urine Urobilinogen NEG Urine Leukocyte Esterase NEG White Blood Count 4.67 K/uL 5.26 K/uL Red Blood Count 2.49 M/uL 2.69 M/uL Hemoglobin 9.0 g/dL 9.8 g/dL Hematocrit 28.0 % 30.6 % Mean Corpuscular Volume 112.4 fL 113.8 fL Mean Corpuscular Hemoglobin 36.1 pg 36.4 pg Mean Corpuscular Hemoglobin Concent 32.1 g/dl 32.0 g/dl Platelet Count 170 K/uL 187 K/uL Mean Platelet Volume 9.7 fL 10.0 fL Neutrophils (%) (Auto) 70.9 % 76.8 % Lymphocytes (%) (Auto) 10.5 % 4.9 % Monocytes (%) (Auto) 15.2 % 15.6 % Eosinophils (%) (Auto) 2.8 % 2.3 % Basophils (%) (Auto) 0.4 % 0.2 % Neutrophils # (Auto) 3.31 K/uL 4.04 K/uL Lymphocytes # (Auto) 0.49 K/uL 0.26 K/uL Monocytes # (Auto) 0.71 K/uL 0.82 K/uL Eosinophils # (Auto) 0.13 K/uL 0.12 K/uL Basophils # (Auto) 0.02 K/uL 0.01 K/uL RDW Standard Deviation 62.0 fL 63.6 fL RDW Coefficient of Variation 15.3 % 15.5 % Immature Granulocyte % (Auto) 0.2 % 0.2 % Immature Granulocyte # (Auto) 0.01 K/uL 0.01 K/uL Macrocytosis PRESENT PRESENT Prothrombin Time 19.4 SECONDS 19.2 SECONDS Prothromb Time International Ratio 1.9 1.9 Sodium Level 139 mmol/L Potassium Level 3.9 mmol/L Chloride Level 104 mmol/L Carbon Dioxide Level 27 mmol/L Anion Gap 8.0 mmol/L Blood Urea Nitrogen 71 mg/dl Creatinine 2.77 mg/dl Est Creatinine Clear Calc Drug Dose 13.5 ml/min Estimated GFR () 18.4 Estimated GFR (Non- 15.8 BUN/Creatinine Ratio 25.8 Random Glucose 89 mg/dl Calcium Level 8.8 mg/dl Magnesium Level 2.3 mg/dl Troponin I 0.029 ng/ml 0.024 ng/ml Stomatocytes 1+ Activated Partial Thromboplast Time 32.8 SECONDS Partial Thromboplastin Ratio 1.3 Assessment & Plan 77-year-old female with a history of diastolic CHF, status post mechanical aortic valve replacement, status post mitral valve replacement, Chronic respiratory failure on oxygen 2-3 L by nasal cannula, COPD, hypertension , CKD stage IV presenting with shortness of breath ACUTE ON CHRONIC DIASTOLIC CONGESTIVE HEART FAILURE Secondary to accidentally taking with reduced dose of her usual Lasix usually on Lasix 160 mg P.o. twice daily Currently on Lasix IV 80 mg twice daily Seems to be diuresing adequately so far, continue for now Nephrology and cardiology consulted ACUTE ON CHRONIC RESPIRATORY FAILURE SECONDARY TO CHRONIC OBSTRUCTIVE PULMONARY DISEASE AND CONGESTIVE HEART FAILURE. Management of CHF as noted above HISTORY OF CHRONIC OBSTRUCTIVE PULMONARY DISEASE. Continue Ellipta and albuterol p.r.n. Currently stable. ACUTE KIDNEY INJURY ON CHRONIC KIDNEY STAGE IV. Resolving Nephrology consulted, appreciate recommendations HYPERTENSION. Continue hydralazine, Imdur, Lopressor. Monitor the blood pressure. She is also placed on nitroglycerin paste, which we will continue for now. STATUS POST MECHANICAL MITRAL VALVE REPLACEMENT AND AORTIC VALVE REPLACEMENT INR only at 1.9 Goal INR is 2.5-3.5 Initiate heparin bridge Continue Coumadin Monitor INR daily ATRIAL FIBRILLATION. Rate is under control on Lopressor and Coumadin. Tobacco use. smoking cessation counseling. Deep venous thrombosis prophylaxis, on Coumadin, heparin and sequential compression devices. Disposition PT OT evaluation to be ordered Current Inpatient Medications: Current Inpatient Medications Medications (Trade) Dose Ordered Sig/Shana Route Start Time Stop Time Status Last Admin Dose Admin Acetaminophen (Tylenol Tab) 650 mg Q4H PRN PO 01/19/18 20:15 02/18/18 20:14 Al Hydrox/Mg Hydrox/Simethicone (Maalox Max Susp) 15 ml Q4H PRN PO 01/19/18 20:15 02/18/18 20:14 Ondansetron HCl (Zofran Inj) 4 mg Q6H PRN IV 01/19/18 20:15 02/18/18 20:14 Nitroglycerin (Nitrostat Tab) 0.4 mg UD PRN SL 01/19/18 20:15 02/18/18 20:14 Nitroglycerin (Nitroglycerin 2% Oint) 1 inch Q6H EXT 01/20/18 00:00 02/19/18 00:00 01/20/18 17:41 1 INCH Polyethylene (Miralax Powder Packet) 17 gm DAILY PRN PO 01/19/18 20:15 02/18/18 20:14 Allopurinol (Zyloprim Tab) 100 mg QAM PO 01/20/18 09:00 02/19/18 08:59 01/20/18 08:20 100 MG Calcitriol (Rocaltrol Cap) 0.25 mcg MoTh@1400 PO 01/22/18 14:00 02/21/18 13:59 Cyanocobalamin (Vitamin B-12 Tab) 1,000 mcg DAILY PO 01/20/18 09:00 02/19/18 08:59 01/20/18 08:20 1,000 MCG Folic Acid (Folvite Tab) 1 mg QAM PO 01/20/18 09:00 02/19/18 08:59 01/20/18 08:19 1 MG Gabapentin (Neurontin Cap) 100 mg HS PO 01/19/18 21:00 02/18/18 20:59 01/19/18 22:30 100 MG Guaifenesin (Organidin Nr Tab) 200 mg Q6 PRN PO 01/19/18 20:15 02/18/18 20:14 Hydralazine HCl (Apresoline Tab) 50 mg TID PO 01/19/18 21:00 02/18/18 20:59 01/20/18 13:54 50 MG Isosorbide Mononitrate (Imdur Ext Rel Tab) 60 mg QAM PO 01/20/18 09:00 02/19/18 08:59 01/20/18 08:19 60 MG Levothyroxine Sodium (Synthroid Tab) 25 mcg DAILYBB PO 01/20/18 06:00 02/19/18 05:59 01/20/18 06:01 25 MCG Metoprolol Tartrate (Lopressor Tab) 50 mg BID PO 01/19/18 22:00 02/18/18 21:59 01/20/18 08:19 50 MG Montelukast Sodium (Singulair Tab) 10 mg DAILY PO 01/20/18 09:00 02/19/18 08:59 01/20/18 08:20 10 MG Pantoprazole Sodium (Protonix Tab) 40 mg BID PO 01/19/18 22:00 02/18/18 21:59 01/20/18 08:51 40 MG Potassium Chloride (Klor-Con Tab) 20 meq BID PO 01/19/18 22:00 02/18/18 21:59 01/20/18 08:20 20 MEQ Ranitidine HCl (zANTac TAB) 300 mg HS PO 01/19/18 21:00 02/18/18 20:59 01/19/18 22:30 300 MG Furosemide 80 mg/ Syringe 8 ml @ 4 mls/min BID IV 01/20/18 08:00 02/19/18 07:59 Future Hold 01/20/18 08:53 4 MLS/MIN Warfarin Sodium (Coumadin Tab) 2.5 mg TuWeThSa@1600 PO 01/20/18 16:00 02/19/18 15:59 01/20/18 15:50 2.5 MG Warfarin Sodium (Coumadin Tab) 3.75 mg SuMoFr@1600 PO 01/23/18 16:00 02/22/18 15:59 Albuterol (Ventolin Hfa Inhaler) 2 puffs Q4 PRN INH 01/20/18 10:30 02/19/18 10:29 Miscellaneous Information (Order Awaiting Action) 1 ea QS N/A 01/20/18 16:00 02/19/18 15:59 Heparin Sodium/ Dextrose 500 ml @ 12 mls/hr Q24H IV 01/20/18 11:45 02/19/18 11:44 01/20/18 12:43 12 MLS/HR
[2018-01-20 19:15] LABS: PTT PATIENT 35.8 SECONDS (21.0-31.0)
[2018-01-20] MEDS ORDERED: HEPARIN IV BOLUS 4,000 UNIT in SYRINGE 0 ML IV ONE (20:30)
[2018-01-20] MEDS: RANITIDINE HCL 150 MG TAB PO SCH (20:44)
[2018-01-20] MEDS: GABAPENTIN 100 MG CAP PO SCH (20:45)
--- NOTE | 2018-01-20 20:57 | CARDIOLOGY CONSULTATION ---
DATE OF CONSULTATION: 01/20/2018 INDICATIONS: Congestive heart failure. HISTORY OF PRESENT ILLNESS: The patient is a 77-year-old female with complex history, which includes rheumatic valvular heart disease, status post aortic and mitral valve placements in March of 1997 with a 27 mm Rehman Med[employer] mechanical mitral valve prosthesis and a 23 mm Carbomed[employer] aortic valve mechanical prosthesis. Underlying medical problems include chronic atrial fibrillation, hypertension, hyperlipidemia, chronic renal insufficiency, and chronic obstructive lung disease. The patient was hospitalized in September 2017 with acute decompensated diastolic heart failure, worsening renal insufficiency. The patient's medications were adjusted and patient was ultimately discharged to home. She notes some general instability over the past 2-3 months, but recently had a "mix up" in her medications with substantial reduction in diuretic dosing. Previously, patient has been taking furosemide 160 mg twice per day and reduced this to 40 mg once per day per patient. She presented to the Emergency Room on 01/19/2018, to noting symptoms of worsening dyspnea, orthopnea, abdominal bloating. She denied any chest pains, dizziness, syncope, or near syncope. Noted some chest tightness with breathing. Notes no fevers, chills, or productive cough. Notes no melena, hematochezia, dysuria, or hematuria. She notes substantial improvement since initial treatment with IV furosemide and BiPAP, now off on oxygen support. Topical nitrates were added with good improvement in blood pressures. She is now feeling substantially more comfortable. ALLERGIES: AMLODIPINE. MEDICATIONS: Prior to hospitalization were to be as per list: Albuterol inhaler, allopurinol 100 mg p.o. daily, Rocaltrol 1 capsule 2 times per week, vitamin B12 1000 mg daily, folic acid 1 mg p.o. daily, furosemide 160 mg twice per day, Neurontin 100 mg p.o. at bedtime, oxygen 2 liters nasal cannula, hydralazine 50 t.i.d., iron with vitamin C, Imdur 60 mg per day, levothyroxine 25 mcg per day, metoprolol 50 mg b.i.d., Singulair 10 mg daily, Protonix 40 mg p.o. daily, potassium chloride 10 mEq b.i.d., ranitidine 300 mg at bedtime, Ellipta inhaler, and warfarin. PAST SURGICAL HISTORY: As described notable for aortic and mitral valve replacement in 1996, past thyroidectomy, right hip replacement, left hip replacement, and total hysterectomy. FAMILY HISTORY: Positive for emphysematous lung disease and stroke. SOCIAL HISTORY: The patient is a 1 pack per day smoker with greater than [id number] history of tobacco use. Uses no significant alcoholic beverages. PHYSICAL EXAMINATION: GENERAL: The patient is currently in no acute distress. VITAL SIGNS: Heart rate 73, blood pressure is 133/52. HEENT: Normocephalic and atraumatic. There is no discharge. Throat was clear. NECK: Thin. LUNGS: Reveal markedly diminished breath sounds, but are generally clear. CARDIOVASCULAR: Irregularly irregular with crisp mechanical valve sounds in the aortic and mitral valve positions. There is grade 2/6 systolic murmurs. No diastolic murmurs. No S3 gallop. ABDOMEN: Soft, nontender with mild distention. EXTREMITIES: Reveal 2+ lower extremity edema. LABORATORY STUDIES: White cell count is 5.2, hemoglobin is 9.8. Sodium is 139, potassium is 3.9, chloride is 104, bicarbonate is 27, BUN 71, creatinine is 2.77. Troponin I's are negative. Chest x-ray reveals right base consolidation and pleural effusion, mild increase interstitial markings. INR is 1.9. IMPRESSION: A 77-year-old female with a long history of valvular heart disease, past diastolic heart failure, chronic renal insufficiency who presents with acute decompensated heart failure secondary to medication confusion and reduced dose diuretic. She is responding to IV diuretics. We are planning holding IV furosemide after evening dose this evening. Resume oral furosemide in a.m. All other medications will continue as previously prescribed. MTDD
[2018-01-21] VITALS (7 sets, daily range): BP systolic 116–132; BP diastolic 55–67; PULSE 69–84; TEMP 36.5–37.1; O2SAT 92–98
[2018-01-21] MEDS: NITROGLYCERIN 2% OINTMENT 30GM TUBE EXT SCH ×2 (00:22→05:56)
[2018-01-21 03:00] LABS: BASO % 0.4 %; BASO ABS # 0.02 K/uL (0-0.2); EOS % 4.5 %; EOS ABS # 0.22 K/uL (0-0.5); HEMATOCRIT 29.1 % (37-47); HEMOGLOBIN 9.2 g/dL (12.0-16.0); IG# 0.01 K/uL (0.00-0.02); LYMPH % 11.6 %; LYMPH ABS # 0.56 K/uL (1.2-3.4); MEAN CELL VOLUME 113.7 fL (80-100); MEAN CORPUSCULAR HEMOGLOBIN 35.9 pg (25-34); MEAN CORPUSCULAR HGB CONC 31.6 g/dl (32-36); MEAN PLATELET VOLUME 9.7 fL (7.4-10.4); MONO % 14.5 %; NEUT % 68.8 %; NEUT ABS # 3.33 K/uL (1.4-6.5); PLATELET COUNT 171 K/uL (130-400); RED CELL DISTRIBUTION WIDTH CV 15.4 % (11.5-14.5); WHITE BLOOD COUNT 4.84 K/uL (4.8-10.8)
[2018-01-21 03:18] LABS: CALCIUM 8.8 mg/dl (8.5-10.1); CREATININE 2.93 mg/dl (0.60-1.20); POTASSIUM 3.9 mmol/L (3.5-5.1)
[2018-01-21 03:20] LABS: INR 1.7 (0.9-1.1); PTT PATIENT 44.8 SECONDS (21.0-31.0)
[2018-01-21] MEDS ORDERED: HEPARIN IV BOLUS 2,000 UNIT in SYRINGE 0 ML IV ONE ×3 (03:30→18:15)
[2018-01-21] MEDS: HEPARIN 25,000 UNIT/500ML D5W 500 ML IV SCH ×4 (03:45→22:17)
[2018-01-21] MEDS: LEVOTHYROXINE 25 MCG TAB PO SCH (05:56)
[2018-01-21] MEDS: MONTELUKAST SOD 10 MG TAB PO SCH (08:35)
[2018-01-21] MEDS: METOPROLOL TARTRATE 50 MG TAB PO SCH ×2 (08:36→20:14)
[2018-01-21] MEDS: PANTOprazole SOD 40 MG TAB PO SCH ×2 (08:36→20:15)
[2018-01-21] MEDS: ALLOPURINOL 100 MG TAB PO SCH (08:36)
[2018-01-21] MEDS: ISOSORBIDE MONONITRATE 60 MG TABCR PO SCH (08:36)
[2018-01-21] MEDS: POTASSIUM CHLORIDE 20 MEQ TABCR PO SCH ×2 (08:36→20:14)
[2018-01-21] MEDS: CYANOCOBALAMIN 500 MCG TAB (VIT B-12) PO SCH (08:37)
--- NOTE | 2018-01-21 09:52 | Cardiology Follow-Up ---
Subjective General Date of Service: January 21, 2018. Chief Complaint: CHF Pt evaluation today including: conversation w/ patient, physical exam, chart review, lab review, review of studies, review of inpatient medication list History of Present Illness Patient seen and examined. Chart, medications, and telemetry reviewed. Shortness of breath has improved but not resolved. She notes intermittent expiratory wheezing as well as a rhonchorous cough with associated mild chest congestion. Notes not receiving her Anoro inhaler this admission. Peripheral edema has resolved. No chest pain. No palpitations. No orthopnea or PND. EKG this morning reveals atrial fibrillation with a ventricular rate of 77 bpm. T-wave abnormality, consider inferior ischemia. QTc 477 ms. Continuous telemetry monitoring reveals atrial fibrillation ranging from 70-90 bpm. Occasional PVC in singles. No significant bradycardia arrhythmias or pauses. Allergies Coded Allergies: Amlodipine (Verified Allergy, Unknown, edema per medical record, 12/12/17) Social History Smoking Status: Current Every Day Smoker Hx Tobacco Use In Past Year?: Yes Hx Alcohol Use - Type And Amou: Yes (1 glass of wine daily) Hx Substance Use - Type And Am: No Problem List Medical Problems: (1) CHF (congestive heart failure) Status: Acute (2) CHF (congestive heart failure) Status: Acute (3) Hypoxia Status: Acute (4) Pleural effusion Status: Acute Physical Exam Vital Signs Last Vital Signs Documentation Date Time Temp Pulse Resp B/P (MAP) Pulse Ox O2 Delivery O2 Flow Rate FiO2 01/21/18 08:00 Nasal Cannula 3.0 01/21/18 04:00 97 40 01/21/18 04:00 36.7 78 19 121/55 (77) Physical Exam Constitutional: Level of Distress: NAD, chronically ill Psychiatric: Mental Status: active & alert Orientation: to time, to place, to person Memory: recent memory normal, remote memory normal Head: normocephalic, atraumatic Eyes: Pupils: PERRLA Neck: pertinent finding (Mildly elevated JVP) Lungs: Respiratory effort: no dyspnea Auscultation: deminished air movement, decreased breath sounds, expiratory wheezing, rhonchi Cardiovascular: Heart Auscultation: II/ REGINA, irregular rate rhythm, pertinent finding ( crisp mechanical valve sounds) Peripheral Pulses: Radial Pulse: normal on the left, normal on the right Dorsalis Pedis Pulse: decreased on the left, decreased on the right Abdomen: Bowel Sounds: normal Inspection & Palpation: soft, non-distended, no masses Extremities: no cyanosis, no edema, no clubbing Neurologic: Cranial Nerves: grossly intact Assessment and Plan Assessment and Plan Complex 77-year-old female admitted with acute decompensated diastolic heart failure secondary to noncompliance with her standard diuretic regimen, inadvertently decreasing furosemide from 160 mg twice per day to 40 mg per day. Patient has responded well to IV diuretic therapy. Dyspnea remains above baseline with history and examination highly suggestive of a mild exacerbation of her chronic pulmonary disease. She will require ongoing inpatient treatment , heparin to proper Coumadin anticoagulation. No aspirin. Oral furosemide will be resumed at 160 mg twice per day this morning. Nitroglycerin paste will be discontinued. Vitron C to be resumed as well. Increase activity as tolerated. Patient seen and examined. Agree with assessment above volume status appears improved. Underlying respiratory issues remain present. Medication adjusted as above Joel Doll MD Laboratory Results Last 24 Hours Test 01/20/18 11:42 01/20/18 18:49 01/21/18 02:44 White Blood Count 5.26 K/uL 4.84 K/uL Red Blood Count 2.69 M/uL 2.56 M/uL Hemoglobin 9.8 g/dL 9.2 g/dL Hematocrit 30.6 % 29.1 % Mean Corpuscular Volume 113.8 fL 113.7 fL Mean Corpuscular Hemoglobin 36.4 pg 35.9 pg Mean Corpuscular Hemoglobin Concent 32.0 g/dl 31.6 g/dl Platelet Count 187 K/uL 171 K/uL Mean Platelet Volume 10.0 fL 9.7 fL Neutrophils (%) (Auto) 76.8 % 68.8 % Lymphocytes (%) (Auto) 4.9 % 11.6 % Monocytes (%) (Auto) 15.6 % 14.5 % Eosinophils (%) (Auto) 2.3 % 4.5 % Basophils (%) (Auto) 0.2 % 0.4 % Neutrophils # (Auto) 4.04 K/uL 3.33 K/uL Lymphocytes # (Auto) 0.26 K/uL 0.56 K/uL Monocytes # (Auto) 0.82 K/uL 0.70 K/uL Eosinophils # (Auto) 0.12 K/uL 0.22 K/uL Basophils # (Auto) 0.01 K/uL 0.02 K/uL RDW Standard Deviation 63.6 fL 63.0 fL RDW Coefficient of Variation 15.5 % 15.4 % Immature Granulocyte % (Auto) 0.2 % 0.2 % Immature Granulocyte # (Auto) 0.01 K/uL 0.01 K/uL Macrocytosis PRESENT PRESENT Stomatocytes 1+ Prothrombin Time 19.2 SECONDS 17.7 SECONDS Prothromb Time International Ratio 1.9 1.7 Activated Partial Thromboplast Time 32.8 SECONDS 35.8 SECONDS 44.8 SECONDS Partial Thromboplastin Ratio 1.3 1.4 1.7 Troponin I 0.024 ng/ml Sodium Level 139 mmol/L Potassium Level 3.9 mmol/L Chloride Level 104 mmol/L Carbon Dioxide Level 28 mmol/L Anion Gap 7.0 mmol/L Blood Urea Nitrogen 67 mg/dl Creatinine 2.93 mg/dl Est Creatinine Clear Calc Drug Dose 12.7 ml/min Estimated GFR () 17.2 Estimated GFR (Non- 14.8 BUN/Creatinine Ratio 22.8 Random Glucose 99 mg/dl Calcium Level 8.8 mg/dl Magnesium Level 2.1 mg/dl Iron Level 49 mcg/dl Transferrin 269 mg/dl Transferrin % Saturation 13 %
[2018-01-21 10:20] LABS: PTT PATIENT 43.6 SECONDS (21.0-31.0)
--- NOTE | 2018-01-21 10:22 | Nephrology Progress Note ---
Nephrology Progress Note Date of Service: January 21, 2018. Subjective breathing still tight/short; edema improved. on heparin gtt. changing to po diuretics Objective Date Time Temp Pulse Resp B/P (MAP) Pulse Ox O2 Delivery O2 Flow Rate FiO2 01/21/18 08:00 Nasal Cannula 3.0 01/21/18 04:00 97 Nasal Cannula 4.0 40 01/21/18 04:00 36.7 78 19 121/55 (77) 97 Nasal Cannula 4.0 01/20/18 23:59 Nasal Cannula 01/20/18 23:30 36.3 81 17 114/53 (73) 97 Nasal Cannula 4.0 01/20/18 20:00 Nasal Cannula 01/20/18 19:22 37.1 71 16 122/57 (78) 98 Nasal Cannula 4.0 01/20/18 16:00 Nasal Cannula 4.0 01/20/18 15:26 37.1 73 18 133/52 (79) 98 Nasal Cannula 4.0 01/20/18 12:00 Nasal Cannula 4.0 01/20/18 12:00 36.8 80 16 114/61 (78) 99 Nasal Cannula 4.0 Physical Exam: General Appearance: WD/WN, today no distress Eyes: EOMI ENT: hearing grossly normal Neck: supple Respiratory/Chest: + decreased breath sounds, bibasilar crackles fine, no rhonchi, occasional wheeze Cardiovascular: irregularly irregular rhythm, + systolic murmur (w/ mech valve click), + pertinent finding (edema at most trace) Abdomen: normal bowel sounds (no real), non tender, soft Extremities: L forearm avf + t/b Neurologic/Psych: alert, normal mood/affect, oriented x 3 Skin: no jaundice, warm/dry, no rash Current Inpatient Medications Medications (Trade) Dose Ordered Sig/Shana Route Start Time Stop Time Status Last Admin Dose Admin Acetaminophen (Tylenol Tab) 650 mg Q4H PRN PO 01/19/18 20:15 02/18/18 20:14 Al Hydrox/Mg Hydrox/Simethicone (Maalox Max Susp) 15 ml Q4H PRN PO 01/19/18 20:15 02/18/18 20:14 Ondansetron HCl (Zofran Inj) 4 mg Q6H PRN IV 01/19/18 20:15 02/18/18 20:14 Nitroglycerin (Nitrostat Tab) 0.4 mg UD PRN SL 01/19/18 20:15 02/18/18 20:14 Nitroglycerin (Nitroglycerin 2% Oint) 1 inch Q6H EXT 01/20/18 00:00 01/21/18 17:00 01/21/18 05:56 1 INCH Polyethylene (Miralax Powder Packet) 17 gm DAILY PRN PO 01/19/18 20:15 02/18/18 20:14 Allopurinol (Zyloprim Tab) 100 mg QAM PO 01/20/18 09:00 02/19/18 08:59 01/21/18 08:36 100 MG Calcitriol (Rocaltrol Cap) 0.25 mcg MoTh@1400 PO 01/22/18 14:00 02/21/18 13:59 Cyanocobalamin (Vitamin B-12 Tab) 1,000 mcg DAILY PO 01/20/18 09:00 02/19/18 08:59 01/21/18 08:37 1,000 MCG Folic Acid (Folvite Tab) 1 mg QAM PO 01/20/18 09:00 02/19/18 08:59 01/21/18 08:35 1 MG Gabapentin (Neurontin Cap) 100 mg HS PO 01/19/18 21:00 02/18/18 20:59 01/20/18 20:45 100 MG Guaifenesin (Organidin Nr Tab) 200 mg Q6 PRN PO 01/19/18 20:15 02/18/18 20:14 Hydralazine HCl (Apresoline Tab) 50 mg TID PO 01/19/18 21:00 02/18/18 20:59 01/21/18 08:36 50 MG Isosorbide Mononitrate (Imdur Ext Rel Tab) 60 mg QAM PO 01/20/18 09:00 02/19/18 08:59 01/21/18 08:36 60 MG Levothyroxine Sodium (Synthroid Tab) 25 mcg DAILYBB PO 01/20/18 06:00 02/19/18 05:59 01/21/18 05:56 25 MCG Metoprolol Tartrate (Lopressor Tab) 50 mg BID PO 01/19/18 22:00 02/18/18 21:59 01/21/18 08:36 50 MG Montelukast Sodium (Singulair Tab) 10 mg DAILY PO 01/20/18 09:00 02/19/18 08:59 01/21/18 08:35 10 MG Pantoprazole Sodium (Protonix Tab) 40 mg BID PO 01/19/18 22:00 02/18/18 21:59 01/21/18 08:36 40 MG Potassium Chloride (Klor-Con Tab) 20 meq BID PO 01/19/18 22:00 02/18/18 21:59 01/21/18 08:36 20 MEQ Ranitidine HCl (zANTac TAB) 300 mg HS PO 01/19/18 21:00 02/18/18 20:59 01/20/18 20:44 300 MG Furosemide 80 mg/ Syringe 8 ml @ 4 mls/min BID IV 01/20/18 08:00 02/19/18 07:59 Future Hold 01/20/18 20:43 4 MLS/MIN Warfarin Sodium (Coumadin Tab) 2.5 mg TuWeThSa@1600 PO 01/20/18 16:00 02/19/18 15:59 01/20/18 15:50 2.5 MG Warfarin Sodium (Coumadin Tab) 3.75 mg SuMoFr@1600 PO 01/23/18 16:00 02/22/18 15:59 Albuterol (Ventolin Hfa Inhaler) 2 puffs Q4 PRN INH 01/20/18 10:30 02/19/18 10:29 Miscellaneous Information (Order Awaiting Action) 1 ea QS N/A 01/20/18 16:00 02/19/18 15:59 Heparin Sodium/ Dextrose 500 ml @ 15 mls/hr Q24H IV 01/20/18 11:45 02/19/18 11:44 01/21/18 03:45 15 MLS/HR Furosemide (Lasix Tab) 160 mg BID17 PO 01/21/18 10:00 02/20/18 09:59 Ferrous Fumarate (Darío-Sequels Contr Rel Cap) 65 mg QAM PO 01/22/18 09:00 02/21/18 08:59 Last 24 Hours Test 01/20/18 11:42 01/20/18 18:49 01/21/18 02:44 01/21/18 09:49 White Blood Count 5.26 K/uL 4.84 K/uL Red Blood Count 2.69 M/uL 2.56 M/uL Hemoglobin 9.8 g/dL 9.2 g/dL Hematocrit 30.6 % 29.1 % Mean Corpuscular Volume 113.8 fL 113.7 fL Mean Corpuscular Hemoglobin 36.4 pg 35.9 pg Mean Corpuscular Hemoglobin Concent 32.0 g/dl 31.6 g/dl Platelet Count 187 K/uL 171 K/uL Mean Platelet Volume 10.0 fL 9.7 fL Neutrophils (%) (Auto) 76.8 % 68.8 % Lymphocytes (%) (Auto) 4.9 % 11.6 % Monocytes (%) (Auto) 15.6 % 14.5 % Eosinophils (%) (Auto) 2.3 % 4.5 % Basophils (%) (Auto) 0.2 % 0.4 % Neutrophils # (Auto) 4.04 K/uL 3.33 K/uL Lymphocytes # (Auto) 0.26 K/uL 0.56 K/uL Monocytes # (Auto) 0.82 K/uL 0.70 K/uL Eosinophils # (Auto) 0.12 K/uL 0.22 K/uL Basophils # (Auto) 0.01 K/uL 0.02 K/uL RDW Standard Deviation 63.6 fL 63.0 fL RDW Coefficient of Variation 15.5 % 15.4 % Immature Granulocyte % (Auto) 0.2 % 0.2 % Immature Granulocyte # (Auto) 0.01 K/uL 0.01 K/uL Macrocytosis PRESENT PRESENT Stomatocytes 1+ Prothrombin Time 19.2 SECONDS 17.7 SECONDS Prothromb Time International Ratio 1.9 1.7 Activated Partial Thromboplast Time 32.8 SECONDS 35.8 SECONDS 44.8 SECONDS Partial Thromboplastin Ratio 1.3 1.4 1.7 Troponin I 0.024 ng/ml Sodium Level 139 mmol/L Potassium Level 3.9 mmol/L Chloride Level 104 mmol/L Carbon Dioxide Level 28 mmol/L Anion Gap 7.0 mmol/L Blood Urea Nitrogen 67 mg/dl Creatinine 2.93 mg/dl Est Creatinine Clear Calc Drug Dose 12.7 ml/min Estimated GFR () 17.2 Estimated GFR (Non- 14.8 BUN/Creatinine Ratio 22.8 Random Glucose 99 mg/dl Calcium Level 8.8 mg/dl Magnesium Level 2.1 mg/dl Iron Level 49 mcg/dl Transferrin 269 mg/dl Transferrin % Saturation 13 % Assessment & Plan 77 y/o F w/ CKD 4 w/ maturing AVF (placed 12/2017), recurrent volume overload admitted w/ acute decompensated diastolic HF after inadvertently lowering her lasix dose at home for a few days. CXR w/ presumed pleural effusion versus consolidation L base; no florid overload. 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 JUAN C on CKD4 Near outpatient baseline; not oliguric. Chemistries remain acceptable today. Urine sediment bland. has maturing avf -no indication for urgent dialysis; close to needing it as outpt though -defer to cardiology on diuretics > back on her outpt regimen at this time; down just about a kg from admission -bmp daily Anemia of chronic disease -may benefit from epo when clinically stable/including after d/c -monitor daily -her iron stores are low >> if more stable tomorrow will start IV iron course Wheezing/dyspnea -cont efforts to optimize copd Appreciate consult; will follow with you.
[2018-01-21] MEDS: FUROSEMIDE 40 MG TAB PO SCH ×2 (11:14→16:29)
--- NOTE | 2018-01-21 14:39 | Progress Note ---
Medicine Progress Note Date & Time of Visit: January 21, 2018 at 14:23. Subjective seen resting in bed, watching TV states she feels improved today breathing has improved has cough productive of yellow sputum denies chest pain no other symptoms Objective Last 8 Hrs Date Time Temp Pulse Resp B/P (MAP) Pulse Ox O2 Delivery O2 Flow Rate FiO2 01/21/18 12:23 36.6 80 16 132/56 (81) 98 01/21/18 12:00 Nasal Cannula 3.0 01/21/18 08:00 Nasal Cannula 3.0 01/21/18 07:05 36.9 69 16 116/61 (79) 97 Physical Exam: General-oriented 3, not in distress, speaking in sentences, no effort, no accessory muscle use Head- atraumatic Eyes- , anicteric Neck- supple, no JVD Lungs-mild rales/wheezes scattered bilaterally Heart-normal rate, regular rhythm; no murmur Abdomen- normal bowel sounds, soft, nontender, nondistended Extremities- no pretibial edema, no calf tenderness Neuro- alert, oriented x 3 no gross focal neurologic deficits Skin- warm & dry Laboratory Results: Last 24 Hours Test 01/20/18 18:49 01/21/18 02:44 01/21/18 09:49 Activated Partial Thromboplast Time 35.8 SECONDS 44.8 SECONDS 43.6 SECONDS Partial Thromboplastin Ratio 1.4 1.7 1.7 White Blood Count 4.84 K/uL Red Blood Count 2.56 M/uL Hemoglobin 9.2 g/dL Hematocrit 29.1 % Mean Corpuscular Volume 113.7 fL Mean Corpuscular Hemoglobin 35.9 pg Mean Corpuscular Hemoglobin Concent 31.6 g/dl Platelet Count 171 K/uL Mean Platelet Volume 9.7 fL Neutrophils (%) (Auto) 68.8 % Lymphocytes (%) (Auto) 11.6 % Monocytes (%) (Auto) 14.5 % Eosinophils (%) (Auto) 4.5 % Basophils (%) (Auto) 0.4 % Neutrophils # (Auto) 3.33 K/uL Lymphocytes # (Auto) 0.56 K/uL Monocytes # (Auto) 0.70 K/uL Eosinophils # (Auto) 0.22 K/uL Basophils # (Auto) 0.02 K/uL RDW Standard Deviation 63.0 fL RDW Coefficient of Variation 15.4 % Immature Granulocyte % (Auto) 0.2 % Immature Granulocyte # (Auto) 0.01 K/uL Macrocytosis PRESENT Prothrombin Time 17.7 SECONDS Prothromb Time International Ratio 1.7 Sodium Level 139 mmol/L Potassium Level 3.9 mmol/L Chloride Level 104 mmol/L Carbon Dioxide Level 28 mmol/L Anion Gap 7.0 mmol/L Blood Urea Nitrogen 67 mg/dl Creatinine 2.93 mg/dl Est Creatinine Clear Calc Drug Dose 12.7 ml/min Estimated GFR () 17.2 Estimated GFR (Non- 14.8 BUN/Creatinine Ratio 22.8 Random Glucose 99 mg/dl Calcium Level 8.8 mg/dl Magnesium Level 2.1 mg/dl Iron Level 49 mcg/dl Transferrin 269 mg/dl Transferrin % Saturation 13 % Assessment & Plan 77-year-old female with a history of diastolic CHF, status post mechanical aortic valve replacement, status post mitral valve replacement, Chronic respiratory failure on oxygen 2-3 L by nasal cannula, COPD, hypertension , CKD stage IV presenting with shortness of breath ACUTE ON CHRONIC DIASTOLIC CONGESTIVE HEART FAILURE Secondary to accidentally taking with reduced dose of her usual Lasix usually on Lasix 160 mg P.o. twice daily given Lasix IV 80 mg twice daily diuresed well -- now back to Lasix 160mg po BID Nephrology and cardiology consulted COPD EXACERBATION -- possible Acute Bronchitis -- repeat CXR today -- start Solumedrol 40mg q8h start Nebs q4h start Doxycyline 100mg BID -- continue Ellipta -- monitor ACUTE ON CHRONIC RESPIRATORY FAILURE SECONDARY TO CHRONIC OBSTRUCTIVE PULMONARY DISEASE AND CONGESTIVE HEART FAILURE. Management of CHF as noted above ACUTE KIDNEY INJURY ON CHRONIC KIDNEY STAGE IV. Resolving Nephrology consulted, appreciate recommendations HYPERTENSION. Continue hydralazine, Imdur, Lopressor. STATUS POST MECHANICAL MITRAL VALVE REPLACEMENT AND AORTIC VALVE REPLACEMENT INR only at 1.9 Goal INR is 2.5-3.5 Initiate heparin bridge Continue Coumadin Monitor INR daily ATRIAL FIBRILLATION. Rate is under control on Lopressor and Coumadin. Tobacco use. smoking cessation counseling. Deep venous thrombosis prophylaxis, on Coumadin, heparin and sequential compression devices. Disposition PT OT evaluation to be ordered Current Inpatient Medications: Current Inpatient Medications Medications (Trade) Dose Ordered Sig/Shana Route Start Time Stop Time Status Last Admin Dose Admin Acetaminophen (Tylenol Tab) 650 mg Q4H PRN PO 01/19/18 20:15 02/18/18 20:14 Al Hydrox/Mg Hydrox/Simethicone (Maalox Max Susp) 15 ml Q4H PRN PO 01/19/18 20:15 02/18/18 20:14 Ondansetron HCl (Zofran Inj) 4 mg Q6H PRN IV 01/19/18 20:15 02/18/18 20:14 Nitroglycerin (Nitrostat Tab) 0.4 mg UD PRN SL 01/19/18 20:15 02/18/18 20:14 Nitroglycerin (Nitroglycerin 2% Oint) 1 inch Q6H EXT 01/20/18 00:00 01/21/18 17:00 01/21/18 05:56 1 INCH Polyethylene (Miralax Powder Packet) 17 gm DAILY PRN PO 01/19/18 20:15 02/18/18 20:14 Allopurinol (Zyloprim Tab) 100 mg QAM PO 01/20/18 09:00 02/19/18 08:59 01/21/18 08:36 100 MG Calcitriol (Rocaltrol Cap) 0.25 mcg MoTh@1400 PO 01/22/18 14:00 02/21/18 13:59 Cyanocobalamin (Vitamin B-12 Tab) 1,000 mcg DAILY PO 01/20/18 09:00 02/19/18 08:59 01/21/18 08:37 1,000 MCG Folic Acid (Folvite Tab) 1 mg QAM PO 01/20/18 09:00 02/19/18 08:59 01/21/18 08:35 1 MG Gabapentin (Neurontin Cap) 100 mg HS PO 01/19/18 21:00 02/18/18 20:59 01/20/18 20:45 100 MG Guaifenesin (Organidin Nr Tab) 200 mg Q6 PRN PO 01/19/18 20:15 02/18/18 20:14 Hydralazine HCl (Apresoline Tab) 50 mg TID PO 01/19/18 21:00 02/18/18 20:59 01/21/18 14:13 50 MG Isosorbide Mononitrate (Imdur Ext Rel Tab) 60 mg QAM PO 01/20/18 09:00 02/19/18 08:59 01/21/18 08:36 60 MG Levothyroxine Sodium (Synthroid Tab) 25 mcg DAILYBB PO 01/20/18 06:00 02/19/18 05:59 01/21/18 05:56 25 MCG Metoprolol Tartrate (Lopressor Tab) 50 mg BID PO 01/19/18 22:00 02/18/18 21:59 01/21/18 08:36 50 MG Montelukast Sodium (Singulair Tab) 10 mg DAILY PO 01/20/18 09:00 02/19/18 08:59 01/21/18 08:35 10 MG Pantoprazole Sodium (Protonix Tab) 40 mg BID PO 01/19/18 22:00 02/18/18 21:59 01/21/18 08:36 40 MG Potassium Chloride (Klor-Con Tab) 20 meq BID PO 01/19/18 22:00 02/18/18 21:59 01/21/18 08:36 20 MEQ Ranitidine HCl (zANTac TAB) 300 mg HS PO 01/19/18 21:00 02/18/18 20:59 01/20/18 20:44 300 MG Warfarin Sodium (Coumadin Tab) 2.5 mg TuWeThSa@1600 PO 01/20/18 16:00 02/19/18 15:59 01/20/18 15:50 2.5 MG Warfarin Sodium (Coumadin Tab) 3.75 mg SuMoFr@1600 PO 01/23/18 16:00 02/22/18 15:59 Albuterol (Ventolin Hfa Inhaler) 2 puffs Q4 PRN INH 01/20/18 10:30 02/19/18 10:29 Miscellaneous Information (Order Awaiting Action) 1 ea QS N/A 01/20/18 16:00 02/19/18 15:59 Heparin Sodium/ Dextrose 500 ml @ 16 mls/hr Q24H IV 01/20/18 11:45 02/19/18 11:44 01/21/18 11:14 16 MLS/HR Furosemide (Lasix Tab) 160 mg BID17 PO 01/21/18 10:00 02/20/18 09:59 01/21/18 11:14 160 MG Ferrous Fumarate (Darío-Sequels Contr Rel Cap) 65 mg QAM PO 01/22/18 09:00 02/21/18 08:59
--- NOTE | 2018-01-21 14:46 | DIAGNOSTIC IMAGING REPORT ---
CHEST ONE VIEW PORTABLE CLINICAL HISTORY: r/o pneumonia dyspnea COMPARISON STUDY: 01/19/2018 FINDINGS: Mild increase in cardiac size. Left pleural effusion slightly increased in volume. Slight increase in pulmonary vasculature. Prior median sternotomy. IMPRESSION: Congestive heart failure slightly progressive from the prior study. The above report was generated using voice recognition software. It may contain grammatical, syntax or spelling errors. Electronically signed by: Jorge Lindo M.D. 01/21/2018 2:44 PM Dictated Date/Time: 01/21/2018 2:43 PM
[2018-01-21] MEDS: LEVALBUTEROL 0.63MG/3 ML NEB INH SCH ×2 (15:19→19:12)
[2018-01-21] MEDS: IPRATROPIUM BROMIDE NEB SOLN 0.02% 2.5 ML VIAL INH SCH ×2 (15:19→19:12)
[2018-01-21] MEDS ORDERED: WARFARIN SOD 4 MG TAB PO SCH (16:00)
[2018-01-21] MEDS: METHYLPREDNISOLONE IV 40 MG in SYRINGE 0 ML IV SCH ×2 (16:28→22:15)
[2018-01-21 17:49] LABS: PTT PATIENT 42.8 SECONDS (21.0-31.0)
[2018-01-21] MEDS: GABAPENTIN 100 MG CAP PO SCH (20:14)
[2018-01-21] MEDS: DOXYCYCLINE HYCLATE 100 MG CAP PO SCH (20:14)
[2018-01-21] MEDS: RANITIDINE HCL 150 MG TAB PO SCH (20:15)
[2018-01-22] VITALS (8 sets, daily range): BP systolic 114–133; BP diastolic 53–68; PULSE 71–82; TEMP 36.1–37.1; O2SAT 92–96
[2018-01-22 00:57] LABS: PTT PATIENT 51.2 SECONDS (21.0-31.0)
[2018-01-22] MEDS: LEVALBUTEROL 0.63MG/3 ML NEB INH SCH ×4 (01:56→19:08)
[2018-01-22] MEDS: IPRATROPIUM BROMIDE NEB SOLN 0.02% 2.5 ML VIAL INH SCH ×4 (01:57→19:08)
[2018-01-22] MEDS: METHYLPREDNISOLONE IV 40 MG in SYRINGE 0 ML IV SCH (06:04)
[2018-01-22] MEDS: LEVOTHYROXINE 25 MCG TAB PO SCH (06:04)
[2018-01-22 06:54] LABS: HEMATOCRIT 28.7 % (37-47); HEMOGLOBIN 9.4 g/dL (12.0-16.0); IG# 0.01 K/uL (0.00-0.02); LYMPH % 4.9 %; LYMPH ABS # 0.13 K/uL (1.2-3.4); MEAN CELL VOLUME 112.5 fL (80-100); MEAN CORPUSCULAR HEMOGLOBIN 36.9 pg (25-34); MEAN CORPUSCULAR HGB CONC 32.8 g/dl (32-36); MEAN PLATELET VOLUME 10.2 fL (7.4-10.4); MONO % 1.5 %; MONO ABS # 0.04 K/uL (0.11-0.59); NEUT % 93.2 %; NEUT ABS # 2.48 K/uL (1.4-6.5); PLATELET COUNT 166 K/uL (130-400); RED CELL DISTRIBUTION WIDTH SD 60.8 fL (36.4-46.3); WHITE BLOOD COUNT 2.66 K/uL (4.8-10.8)
[2018-01-22 07:15] LABS: INR 1.4 (0.9-1.1); PTT PATIENT 42.3 SECONDS (21.0-31.0)
[2018-01-22 07:29] LABS: CALCIUM 8.8 mg/dl (8.5-10.1); CREATININE 2.71 mg/dl (0.60-1.20); POTASSIUM 3.7 mmol/L (3.5-5.1)
[2018-01-22] MEDS ORDERED: HEPARIN IV BOLUS 2,000 UNIT in SYRINGE 0 ML IV ONE (08:00)
[2018-01-22] MEDS: FERROUS FUMARATE CONTR REL CAP 65 MG CAPCR PO SCH (08:37)
[2018-01-22] MEDS: FUROSEMIDE 40 MG TAB PO SCH ×2 (08:38→16:28)
[2018-01-22] MEDS: MONTELUKAST SOD 10 MG TAB PO SCH (08:38)
[2018-01-22] MEDS: CYANOCOBALAMIN 500 MCG TAB (VIT B-12) PO SCH (08:39)
[2018-01-22] MEDS: ALLOPURINOL 100 MG TAB PO SCH (08:39)
[2018-01-22] MEDS: ISOSORBIDE MONONITRATE 60 MG TABCR PO SCH (08:40)
[2018-01-22] MEDS: PANTOprazole SOD 40 MG TAB PO SCH ×2 (08:41→21:16)
[2018-01-22] MEDS: METOPROLOL TARTRATE 50 MG TAB PO SCH ×2 (08:41→21:16)
[2018-01-22] MEDS: POTASSIUM CHLORIDE 20 MEQ TABCR PO SCH ×2 (08:42→21:16)
[2018-01-22] MEDS: DOXYCYCLINE HYCLATE 100 MG CAP PO SCH ×2 (08:42→21:16)
[2018-01-22] MEDS: UMECLIDINIUM-VILANTEROL (ANORO) INH SCH (08:43)
--- NOTE | 2018-01-22 09:09 | Progress Note ---
Medicine Progress Note Date & Time of Visit: January 22, 2018 at 09:09. Subjective seen resting in bed, alert, in good spirits states she feels improved today less cough and yellow phlegm, and dyspnea no chest pain no bleeding denies other symptoms Objective Last 8 Hrs Date Time Temp Pulse Resp B/P (MAP) Pulse Ox O2 Delivery O2 Flow Rate FiO2 01/22/18 06:53 77 16 93 Nasal Cannula 2.0 01/22/18 04:00 Nasal Cannula 2.0 01/22/18 03:17 36.6 78 18 131/62 (85) 94 Nasal Cannula 2.0 01/22/18 01:58 71 16 96 Nasal Cannula 2.0 Physical Exam: General-oriented 3, not in distress, speaking in sentences, no effort, no accessory muscle use Head- atraumatic Eyes- anicteric Neck- no JVD Lungs decreased breath sounds right mid to base, mild rales , no wheezing Heart-normal rate, regular rhythm; no murmur Abdomen- normal bowel sounds, soft, nontender, nondistended Extremities- no pretibial edema, no calf tenderness Neuro- alert, oriented x 3 no gross focal neurologic deficits Skin- warm & dry Laboratory Results: Last 24 Hours Test 01/21/18 09:49 01/21/18 17:21 01/22/18 00:25 01/22/18 06:18 Activated Partial Thromboplast Time 43.6 SECONDS 42.8 SECONDS 51.2 SECONDS 42.3 SECONDS Partial Thromboplastin Ratio 1.7 1.6 2.0 1.6 White Blood Count 2.66 K/uL Red Blood Count 2.55 M/uL Hemoglobin 9.4 g/dL Hematocrit 28.7 % Mean Corpuscular Volume 112.5 fL Mean Corpuscular Hemoglobin 36.9 pg Mean Corpuscular Hemoglobin Concent 32.8 g/dl Platelet Count 166 K/uL Mean Platelet Volume 10.2 fL Neutrophils (%) (Auto) 93.2 % Lymphocytes (%) (Auto) 4.9 % Monocytes (%) (Auto) 1.5 % Eosinophils (%) (Auto) 0.0 % Basophils (%) (Auto) 0.0 % Neutrophils # (Auto) 2.48 K/uL Lymphocytes # (Auto) 0.13 K/uL Monocytes # (Auto) 0.04 K/uL Eosinophils # (Auto) 0.00 K/uL Basophils # (Auto) 0.00 K/uL RDW Standard Deviation 60.8 fL RDW Coefficient of Variation 15.0 % Immature Granulocyte % (Auto) 0.4 % Immature Granulocyte # (Auto) 0.01 K/uL Macrocytosis PRESENT Prothrombin Time 15.0 SECONDS Prothromb Time International Ratio 1.4 Sodium Level 135 mmol/L Potassium Level 3.7 mmol/L Chloride Level 100 mmol/L Carbon Dioxide Level 29 mmol/L Anion Gap 6.0 mmol/L Blood Urea Nitrogen 65 mg/dl Creatinine 2.71 mg/dl Est Creatinine Clear Calc Drug Dose 13.8 ml/min Estimated GFR () 18.9 Estimated GFR (Non- 16.3 BUN/Creatinine Ratio 24.0 Random Glucose 135 mg/dl Calcium Level 8.8 mg/dl Magnesium Level 2.0 mg/dl Assessment & Plan 77-year-old female with a history of diastolic CHF, status post mechanical aortic valve replacement, status post mitral valve replacement, Chronic respiratory failure on oxygen 2-3 L by nasal cannula, COPD, hypertension , CKD stage IV presenting with shortness of breath ACUTE ON CHRONIC DIASTOLIC CONGESTIVE HEART FAILURE Secondary to accidentally taking with reduced dose of her usual Lasix usually on Lasix 160 mg P.o. twice daily given Lasix IV 80 mg twice daily diuresed well -- now back to Lasix 160mg po BID Nephrology and cardiology consulted COPD EXACERBATION -- possible Acute Bronchitis -- started Solumedrol 40mg q8h--> transition to PO prednisone Nebs q4h Doxycyline 100mg BID Day 2 Ellipta continued -- check CT chest ACUTE ON CHRONIC RESPIRATORY FAILURE SECONDARY TO CHRONIC OBSTRUCTIVE PULMONARY DISEASE AND CONGESTIVE HEART FAILURE. Management of CHF as noted above ACUTE KIDNEY INJURY ON CHRONIC KIDNEY STAGE IV. Resolving Nephrology consulted, appreciate recommendations HYPERTENSION. Continue hydralazine, Imdur, Lopressor. STATUS POST MECHANICAL MITRAL VALVE REPLACEMENT AND AORTIC VALVE REPLACEMENT INR 1.4 Goal INR is 2.5-3.5 increase coumadin to 6mg po daily continue heparin bridge Monitor INR daily ATRIAL FIBRILLATION. Rate is under control on Lopressor and Coumadin. Tobacco use. smoking cessation counseling. Deep venous thrombosis prophylaxis, on Coumadin, heparin and sequential compression devices. Disposition PT OT ordered Current Inpatient Medications: Current Inpatient Medications Medications (Trade) Dose Ordered Sig/Shana Route Start Time Stop Time Status Last Admin Dose Admin Acetaminophen (Tylenol Tab) 650 mg Q4H PRN PO 01/19/18 20:15 02/18/18 20:14 Al Hydrox/Mg Hydrox/Simethicone (Maalox Max Susp) 15 ml Q4H PRN PO 01/19/18 20:15 02/18/18 20:14 Ondansetron HCl (Zofran Inj) 4 mg Q6H PRN IV 01/19/18 20:15 02/18/18 20:14 Nitroglycerin (Nitrostat Tab) 0.4 mg UD PRN SL 01/19/18 20:15 02/18/18 20:14 Polyethylene (Miralax Powder Packet) 17 gm DAILY PRN PO 01/19/18 20:15 02/18/18 20:14 Allopurinol (Zyloprim Tab) 100 mg QAM PO 01/20/18 09:00 02/19/18 08:59 01/22/18 08:39 100 MG Calcitriol (Rocaltrol Cap) 0.25 mcg MoTh@1400 PO 01/22/18 14:00 02/21/18 13:59 Cyanocobalamin (Vitamin B-12 Tab) 1,000 mcg DAILY PO 01/20/18 09:00 02/19/18 08:59 01/22/18 08:39 1,000 MCG Folic Acid (Folvite Tab) 1 mg QAM PO 01/20/18 09:00 02/19/18 08:59 01/22/18 08:40 1 MG Gabapentin (Neurontin Cap) 100 mg HS PO 01/19/18 21:00 02/18/18 20:59 01/21/18 20:14 100 MG Guaifenesin (Organidin Nr Tab) 200 mg Q6 PRN PO 01/19/18 20:15 02/18/18 20:14 Hydralazine HCl (Apresoline Tab) 50 mg TID PO 01/19/18 21:00 02/18/18 20:59 01/22/18 08:41 50 MG Isosorbide Mononitrate (Imdur Ext Rel Tab) 60 mg QAM PO 01/20/18 09:00 02/19/18 08:59 01/22/18 08:40 60 MG Levothyroxine Sodium (Synthroid Tab) 25 mcg DAILYBB PO 01/20/18 06:00 02/19/18 05:59 01/22/18 06:04 25 MCG Metoprolol Tartrate (Lopressor Tab) 50 mg BID PO 01/19/18 22:00 02/18/18 21:59 01/22/18 08:41 50 MG Montelukast Sodium (Singulair Tab) 10 mg DAILY PO 01/20/18 09:00 02/19/18 08:59 01/22/18 08:38 10 MG Pantoprazole Sodium (Protonix Tab) 40 mg BID PO 01/19/18 22:00 02/18/18 21:59 01/22/18 08:41 40 MG Potassium Chloride (Klor-Con Tab) 20 meq BID PO 01/19/18 22:00 02/18/18 21:59 01/22/18 08:42 20 MEQ Ranitidine HCl (zANTac TAB) 300 mg HS PO 01/19/18 21:00 02/18/18 20:59 01/21/18 20:15 300 MG Albuterol (Ventolin Hfa Inhaler) 2 puffs Q4 PRN INH 01/20/18 10:30 02/19/18 10:29 Heparin Sodium/ Dextrose 500 ml @ 18 mls/hr Q24H IV 01/20/18 11:45 02/19/18 11:44 01/21/18 22:17 17 MLS/HR Furosemide (Lasix Tab) 160 mg BID17 PO 01/21/18 10:00 02/20/18 09:59 01/22/18 08:38 160 MG Ferrous Fumarate (Darío-Sequels Contr Rel Cap) 65 mg QAM PO 01/22/18 09:00 02/21/18 08:59 01/22/18 08:37 65 MG Levalbuterol (Xopenex 0.63 Mg/ 3 Ml Neb) 0.63 mg Q6R INH 01/21/18 15:00 02/20/18 14:59 01/22/18 06:52 0.63 MG Ipratropium [place] (Atrovent 0.02% 0.5MG/2.5ML Neb) 0.5 mg Q6R INH 01/21/18 15:00 02/20/18 14:59 01/22/18 06:52 0.5 MG Methylprednisolone Sodium Succinate 40 mg/Syringe 0.64 ml @ 1.5 mls/min Q8H IV 01/21/18 15:00 02/20/18 14:59 01/22/18 06:04 1.5 MLS/MIN Doxycycline Hyclate (Vibramycin Cap) 100 mg BID PO 01/21/18 21:00 01/28/18 20:59 01/22/18 08:42 100 MG Warfarin Sodium (Coumadin Tab) 6 mg ONE PO 01/22/18 16:00 02/21/18 15:59 UNV
--- NOTE | 2018-01-22 09:33 | Cardiology Follow-Up ---
Subjective General Date of Service: January 22, 2018. Chief Complaint: CHF Pt evaluation today including: conversation w/ patient, physical exam, chart review, lab review, review of studies, review of inpatient medication list History of Present Illness Patient seen and examined. Chart, medications, and telemetry reviewed. Patient states "I feel wonderful." Denies chest pain. Dyspnea has improved. No palpitations. No orthopnea or PND. Mild muscular abdominal pain from coughing. Continuous telemetry monitoring reveals atrial fibrillation, currently in the 70 's, with a controlled ventricular response. Allergies Coded Allergies: Amlodipine (Verified Allergy, Unknown, edema per medical record, 12/12/17) Social History Smoking Status: Current Every Day Smoker Hx Tobacco Use In Past Year?: Yes Hx Alcohol Use - Type And Amou: Yes (1 glass of wine daily) Hx Substance Use - Type And Am: No Problem List Medical Problems: (1) CHF (congestive heart failure) Status: Acute (2) CHF (congestive heart failure) Status: Acute (3) Hypoxia Status: Acute (4) Pleural effusion Status: Acute Physical Exam Vital Signs Last Vital Signs Documentation Date Time Temp Pulse Resp B/P (MAP) Pulse Ox O2 Delivery O2 Flow Rate FiO2 01/22/18 06:53 77 16 93 Nasal Cannula 2.0 01/22/18 03:17 36.6 131/62 (85) 01/21/18 04:00 40 Physical Exam Constitutional: Level of Distress: NAD, chronically ill Psychiatric: Mental Status: active & alert Orientation: to time, to place, to person Memory: recent memory normal, remote memory normal Head: normocephalic, atraumatic Eyes: Pupils: PERRLA Neck: pertinent finding (Normal JVP) Lungs: Respiratory effort: no dyspnea Auscultation: deminished air movement, decreased breath sounds, rales/ crackles on the left Cardiovascular: Heart Auscultation: II/ REGINA, irregular rate rhythm, pertinent finding ( crisp mechanical valve sounds) Peripheral Pulses: Radial Pulse: normal on the left, normal on the right Dorsalis Pedis Pulse: decreased on the left, decreased on the right Abdomen: Bowel Sounds: normal Inspection & Palpation: soft, non-distended, no masses Extremities: no cyanosis, no edema, no clubbing Neurologic: Cranial Nerves: grossly intact Assessment and Plan Assessment and Plan Complex 77-year-old female admitted with acute decompensated diastolic heart failure secondary to noncompliance with her standard diuretic regimen, inadvertently decreasing furosemide from 160 mg twice per day to 40 mg per day. Patient responded well to IV diuretic therapy, now back on her prior oral diuretic regimen with stable renal dysfunction. Would continue current therapies as prescribed. She requires Heparin bridging back to proper Coumadin anticoagulation (INR goal 2.5 to 3.5) given the 27 mm Rehman Medtronic mechanical mitral valve valve, 23 mm Carbomedic aortic valve replacement, and the chronic atrial fibrillation. No aspirin. She is scheduled for routine cardiology follow- up at [facility] on February 12, 2018 at 12:45 PM. Patient seen and examined. Assessment and plan as above with an addendum. Pulmonary evaluation demonstrates significant evaluation findings potential plan bronchoscopy Joel Doll MD Laboratory Results Last 24 Hours Test 01/21/18 09:49 01/21/18 17:21 01/22/18 00:25 01/22/18 06:18 Activated Partial Thromboplast Time 43.6 SECONDS 42.8 SECONDS 51.2 SECONDS 42.3 SECONDS Partial Thromboplastin Ratio 1.7 1.6 2.0 1.6 White Blood Count 2.66 K/uL Red Blood Count 2.55 M/uL Hemoglobin 9.4 g/dL Hematocrit 28.7 % Mean Corpuscular Volume 112.5 fL Mean Corpuscular Hemoglobin 36.9 pg Mean Corpuscular Hemoglobin Concent 32.8 g/dl Platelet Count 166 K/uL Mean Platelet Volume 10.2 fL Neutrophils (%) (Auto) 93.2 % Lymphocytes (%) (Auto) 4.9 % Monocytes (%) (Auto) 1.5 % Eosinophils (%) (Auto) 0.0 % Basophils (%) (Auto) 0.0 % Neutrophils # (Auto) 2.48 K/uL Lymphocytes # (Auto) 0.13 K/uL Monocytes # (Auto) 0.04 K/uL Eosinophils # (Auto) 0.00 K/uL Basophils # (Auto) 0.00 K/uL RDW Standard Deviation 60.8 fL RDW Coefficient of Variation 15.0 % Immature Granulocyte % (Auto) 0.4 % Immature Granulocyte # (Auto) 0.01 K/uL Macrocytosis PRESENT Prothrombin Time 15.0 SECONDS Prothromb Time International Ratio 1.4 Sodium Level 135 mmol/L Potassium Level 3.7 mmol/L Chloride Level 100 mmol/L Carbon Dioxide Level 29 mmol/L Anion Gap 6.0 mmol/L Blood Urea Nitrogen 65 mg/dl Creatinine 2.71 mg/dl Est Creatinine Clear Calc Drug Dose 13.8 ml/min Estimated GFR () 18.9 Estimated GFR (Non- 16.3 BUN/Creatinine Ratio 24.0 Random Glucose 135 mg/dl Calcium Level 8.8 mg/dl Magnesium Level 2.0 mg/dl
--- NOTE | 2018-01-22 12:55 | Nephrology Progress Note ---
Nephrology Progress Note Date of Service: January 22, 2018. Subjective feels her breathing back to [place]; edema improved. on heparin gtt and po diuretics Objective Date Time Temp Pulse Resp B/P (MAP) Pulse Ox O2 Delivery O2 Flow Rate FiO2 01/22/18 06:53 77 16 93 Nasal Cannula 2.0 01/22/18 04:00 Nasal Cannula 2.0 01/22/18 03:17 36.6 78 18 131/62 (85) 94 Nasal Cannula 2.0 01/22/18 01:58 71 16 96 Nasal Cannula 2.0 01/21/18 23:59 Nasal Cannula 2.0 01/21/18 23:46 36.6 84 18 117/55 (75) 95 01/21/18 20:00 Nasal Cannula 2.0 01/21/18 19:47 37.1 83 20 123/66 (85) 92 Nasal Cannula 2.0 01/21/18 19:13 78 18 97 Nasal Cannula 2.0 01/21/18 16:00 Nasal Cannula 3.0 01/21/18 15:20 84 14 96 Nasal Cannula 3.0 01/21/18 15:20 36.5 79 19 126/67 (86) 96 Nasal Cannula 3.0 01/21/18 12:23 36.6 80 16 132/56 (81) 98 01/21/18 12:00 Nasal Cannula 3.0 Physical Exam: General Appearance: WD/WN, today no distress, on 02NC 2L reading newspaper Eyes: EOMI ENT: hearing grossly normal Neck: supple Respiratory/Chest: + decreased breath sounds, no rhonchi, occasional wheeze Cardiovascular: irregularly irregular rhythm, + systolic murmur (w/ mech valve click), no edema Abdomen: normal bowel sounds (no real), non tender, soft Extremities: L forearm avf + t/b Neurologic/Psych: alert, normal mood/affect, oriented x 3 Skin: no jaundice, warm/dry, no rash Current Inpatient Medications Medications (Trade) Dose Ordered Sig/Shana Route Start Time Stop Time Status Last Admin Dose Admin Acetaminophen (Tylenol Tab) 650 mg Q4H PRN PO 01/19/18 20:15 02/18/18 20:14 Al Hydrox/Mg Hydrox/Simethicone (Maalox Max Susp) 15 ml Q4H PRN PO 01/19/18 20:15 02/18/18 20:14 Ondansetron HCl (Zofran Inj) 4 mg Q6H PRN IV 01/19/18 20:15 02/18/18 20:14 Nitroglycerin (Nitrostat Tab) 0.4 mg UD PRN SL 01/19/18 20:15 02/18/18 20:14 Polyethylene (Miralax Powder Packet) 17 gm DAILY PRN PO 01/19/18 20:15 02/18/18 20:14 Allopurinol (Zyloprim Tab) 100 mg QAM PO 01/20/18 09:00 02/19/18 08:59 01/21/18 08:36 100 MG Calcitriol (Rocaltrol Cap) 0.25 mcg MoTh@1400 PO 01/22/18 14:00 02/21/18 13:59 Cyanocobalamin (Vitamin B-12 Tab) 1,000 mcg DAILY PO 01/20/18 09:00 02/19/18 08:59 01/21/18 08:37 1,000 MCG Folic Acid (Folvite Tab) 1 mg QAM PO 01/20/18 09:00 02/19/18 08:59 01/21/18 08:35 1 MG Gabapentin (Neurontin Cap) 100 mg HS PO 01/19/18 21:00 02/18/18 20:59 01/21/18 20:14 100 MG Guaifenesin (Organidin Nr Tab) 200 mg Q6 PRN PO 01/19/18 20:15 02/18/18 20:14 Hydralazine HCl (Apresoline Tab) 50 mg TID PO 01/19/18 21:00 02/18/18 20:59 01/21/18 20:14 50 MG Isosorbide Mononitrate (Imdur Ext Rel Tab) 60 mg QAM PO 01/20/18 09:00 02/19/18 08:59 01/21/18 08:36 60 MG Levothyroxine Sodium (Synthroid Tab) 25 mcg DAILYBB PO 01/20/18 06:00 02/19/18 05:59 01/22/18 06:04 25 MCG Metoprolol Tartrate (Lopressor Tab) 50 mg BID PO 01/19/18 22:00 02/18/18 21:59 01/21/18 20:14 50 MG Montelukast Sodium (Singulair Tab) 10 mg DAILY PO 01/20/18 09:00 02/19/18 08:59 01/21/18 08:35 10 MG Pantoprazole Sodium (Protonix Tab) 40 mg BID PO 01/19/18 22:00 02/18/18 21:59 01/21/18 20:15 40 MG Potassium Chloride (Klor-Con Tab) 20 meq BID PO 01/19/18 22:00 02/18/18 21:59 01/21/18 20:14 20 MEQ Ranitidine HCl (zANTac TAB) 300 mg HS PO 01/19/18 21:00 02/18/18 20:59 01/21/18 20:15 300 MG Albuterol (Ventolin Hfa Inhaler) 2 puffs Q4 PRN INH 01/20/18 10:30 02/19/18 10:29 Heparin Sodium/ Dextrose 500 ml @ 18 mls/hr Q24H IV 01/20/18 11:45 02/19/18 11:44 01/21/18 22:17 17 MLS/HR Furosemide (Lasix Tab) 160 mg BID17 PO 01/21/18 10:00 02/20/18 09:59 01/21/18 16:29 160 MG Ferrous Fumarate (Darío-Sequels Contr Rel Cap) 65 mg QAM PO 01/22/18 09:00 02/21/18 08:59 Levalbuterol (Xopenex 0.63 Mg/ 3 Ml Neb) 0.63 mg Q6R INH 01/21/18 15:00 02/20/18 14:59 01/22/18 06:52 0.63 MG Ipratropium [place] (Atrovent 0.02% 0.5MG/2.5ML Neb) 0.5 mg Q6R INH 01/21/18 15:00 02/20/18 14:59 01/22/18 06:52 0.5 MG Methylprednisolone Sodium Succinate 40 mg/Syringe 0.64 ml @ 1.5 mls/min Q8H IV 01/21/18 15:00 02/20/18 14:59 01/22/18 06:04 1.5 MLS/MIN Doxycycline Hyclate (Vibramycin Cap) 100 mg BID PO 5/2/18 21:00 01/28/18 20:59 01/21/18 20:14 100 MG Warfarin Sodium (Coumadin Tab) 4 mg DAILY@16 PO 01/21/18 16:00 02/20/18 15:59 01/21/18 16:29 4 MG Last 24 Hours Test 01/21/18 09:49 01/21/18 17:21 01/22/18 00:25 01/22/18 06:18 Activated Partial Thromboplast Time 43.6 SECONDS 42.8 SECONDS 51.2 SECONDS 42.3 SECONDS Partial Thromboplastin Ratio 1.7 1.6 2.0 1.6 White Blood Count 2.66 K/uL Red Blood Count 2.55 M/uL Hemoglobin 9.4 g/dL Hematocrit 28.7 % Mean Corpuscular Volume 112.5 fL Mean Corpuscular Hemoglobin 36.9 pg Mean Corpuscular Hemoglobin Concent 32.8 g/dl Platelet Count 166 K/uL Mean Platelet Volume 10.2 fL Neutrophils (%) (Auto) 93.2 % Lymphocytes (%) (Auto) 4.9 % Monocytes (%) (Auto) 1.5 % Eosinophils (%) (Auto) 0.0 % Basophils (%) (Auto) 0.0 % Neutrophils # (Auto) 2.48 K/uL Lymphocytes # (Auto) 0.13 K/uL Monocytes # (Auto) 0.04 K/uL Eosinophils # (Auto) 0.00 K/uL Basophils # (Auto) 0.00 K/uL RDW Standard Deviation 60.8 fL RDW Coefficient of Variation 15.0 % Immature Granulocyte % (Auto) 0.4 % Immature Granulocyte # (Auto) 0.01 K/uL Macrocytosis PRESENT Prothrombin Time 15.0 SECONDS Prothromb Time International Ratio 1.4 Sodium Level 135 mmol/L Potassium Level 3.7 mmol/L Chloride Level 100 mmol/L Carbon Dioxide Level 29 mmol/L Anion Gap 6.0 mmol/L Blood Urea Nitrogen 65 mg/dl Creatinine 2.71 mg/dl Est Creatinine Clear Calc Drug Dose 13.8 ml/min Estimated GFR () 18.9 Estimated GFR (Non- 16.3 BUN/Creatinine Ratio 24.0 Random Glucose 135 mg/dl Calcium Level 8.8 mg/dl Magnesium Level 2.0 mg/dl Assessment & Plan 77 y/o F w/ CKD 4 w/ maturing AVF (placed 12/2017), recurrent volume overload admitted w/ acute decompensated diastolic HF after inadvertently lowering her lasix dose at home for a few days. CXR w/ presumed pleural effusion versus consolidation L base; no florid overload. 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 JUAN C on CKD4 Nearing outpatient baseline; not oliguric. Chemistries remain acceptable today , though Na on low side. Urine sediment bland. has maturing avf -no indication for urgent dialysis; close to needing it as outpt though -defer to cardiology on diuretics > back on her outpt regimen at this time -bmp daily -needs outpt f/u in CKD clinic about a month after d/c unless renal function worsens again w/ Oncu or me Anemia of chronic disease -may benefit from epo when clinically stable/including after d/c -monitor daily cbc -on po iron; will also start venofer 200 mg daily x 3 Wheezing/dyspnea -cont efforts to optimize copd Appreciate consult; will follow with you.
--- NOTE | 2018-01-22 13:56 | DIAGNOSTIC IMAGING REPORT ---
CT OF THE CHEST WITHOUT IV CONTRAST CLINICAL HISTORY: Possible right pleural effusion versus consolidation. COMPARISON STUDY: Chest radiograph January 21, 2018. CT DOSE: 175.23 mGy.cm TECHNIQUE: Axial images of the chest were obtained without IV contrast. Images were reviewed in the axial, sagittal, and coronal planes. IV contrast was not administered for this examination. A dose lowering technique was utilized adhering to the principles of ALARA. FINDINGS: There are median sternotomy wires. The heart is moderately enlarged. Prosthetic aortic and mitral valves are noted. There is mild dilatation of the central pulmonary arteries. No pathologically enlarged axillary, mediastinal or hilar lymph nodes are present. There is no pneumothorax. A moderate right pleural effusion is noted as well as a small left pleural effusion. There is right lower lobe collapse and subtotal right middle lobe collapse. There are secretions/fluid within the right middle lobe bronchi. In addition, secretions/fluid entirely fill the right lower lobe bronchial tree. There is no cavitation. Subpleural left lower lobe opacity favors atelectasis. Groundglass opacities suggest pulmonary edema. There is mild interlobular septal thickening which reflects interstitial pulmonary edema. Lungs are suboptimally assessed due to respiratory motion. Mild emphysema is noted. No suspicious osseous lesions are present. Trace perihepatic ascites is noted. IMPRESSION: 1. Moderate right and small left pleural effusion. Right lower lobe collapse and subtotal right middle lobe collapse with extensive fluid/debris which opacifies the right lower lobe bronchial tree and partially fills the right middle lobe bronchi. No central obstructing mass on this unenhanced CT. Right lower lobe and right middle lobe opacity favors atelectasis. Pneumonia with parapneumonic effusion could appear similar although is considered less likely. No CT evidence for malignancy within the chest however a follow-up chest CT in one month to ensure resolution is recommended. 2. Mild pulmonary edema. 3. Moderate cardiomegaly. 4. Trace perihepatic ascites. Electronically signed by: Calixto Toscano M.D. 01/22/2018 1:55 PM Dictated Date/Time: 01/22/2018 1:40 PM
[2018-01-22] MEDS: CALCITRIOL 0.25 MCG CAP PO SCH (14:52)
[2018-01-22] MEDS ORDERED: DEXTROSE 5% 1000ML 1,000 ML IV SCH (15:28)
[2018-01-22] MEDS ORDERED: IRON SUCROSE INJ 200 MG in SODIUM CHLORIDE 0.9% 100ML 100 ML IV ONE (15:30)
[2018-01-22 15:35] LABS: PTT PATIENT 53.7 SECONDS (21.0-31.0)
[2018-01-22] MEDS ORDERED: WARFARIN SOD 6 MG TAB PO ONE (16:00)
[2018-01-22] MEDS: POLYETHYLENE (MIRALAX) 17 GM PACK PO PRN (16:38)
--- NOTE | 2018-01-22 19:07 | PULMONARY CONSULTATION ---
DATE OF CONSULTATION: 01/22/2018 Pulmonary medicine consult. REASON FOR CONSULTATION: Right middle/lower lobe atelectasis with pleural effusion. HISTORY OF PRESENT ILLNESS: A 77-year-old white female with complex medical history who was admitted on 01/20/2018 because of worsening dyspnea. Patient has a history of rheumatic valvular heart disease, status post aortic and mitral valve replacements in March of 1997 with a 27 mm Rehman Medtronic mechanical valve prosthesis and a 23 mm Carbomedics aortic valve mechanical prosthesis. Patient has a history of chronic atrial fibrillation, hypertension, dyslipidemia, chronic renal insufficiency as well as severe COPD and continues to smoke up to the day of this admission. She has an AV fistula that is maturing for eventual dialysis. She was admitted very dyspneic, felt to be in congestive heart failure. Apparently there was some mix up at home. She had been on 160 mg of Lasix but was only taking 40 mg daily. She noted increased dyspnea, orthopnea, abdominal bloating and pedal edema along with some chest tightness. She has been unable to expectorate. She was brought in the ER, given IV furosemide and put on BIPAP with O2. She is on oxygen at 2 liters continually as an outpatient. She has an albuterol inhaler and is on Singulair and one of the Ellipta inhalers as well she is on anticoagulant therapy. She smoked a pack of cigarettes a day for over 40 years and as stated earlier, continues to smoke. PHYSICAL EXAMINATION: GENERAL: Reveals a thin, diminutive white female, able to converse with me without any difficulty. CURRENT VITAL SIGNS: Temperature 36.1, pulse 75 and regular, respiratory rate 16, blood pressure 133/68, O2 sat 94% on 2 liters. SKIN: Without lesion. HEENT: Atraumatic, normocephalic, PERRLA, EOMI. Conjunctivae pale. Sclerae nonicteric. Fundi poorly visualized. NECK: Neck veins are not distended at 45 degrees. No obvious adenopathy in the supra or infraclavicular areas. LUNGS: Decreased breath sounds with dullness at the right base, virtually absent breath sounds at the right base. CARDIAC: Irregular rhythm. Grade 2/6 SCM heard at the lower left sternal border with crisp mechanical valve sounds. No discernible S3. ABDOMEN: Soft, scaphoid. No evidence of hepatosplenomegaly. EXTREMITIES: Trace to +1 pitting edema. No clubbing or peripheral cyanosis. NEUROLOGIC: Intact. No lateralizing signs. LABORATORY DATA: White count 2600, H&H 9.4 and 28.7 with hyperchromic macrocytic indices. Current PT/INR 1.4, PTT/INR 1.6, BUN 65, creatinine 2.7. ProBNP greater than 10,000. A chest x-ray on admission shows consolidative process right base with pleural effusion and increased pulmonary vasculature. Chest CT done today and reviewed shows moderate right and small left pleural effusion, complete right lower lobe collapse and partial right middle lobe collapse with extensive fluid/debris that opacifies the right lower lobe bronchial tree and right middle lobe with no obvious central obstructing mass. Right pleural effusion is noted. OVERALL ASSESSMENT: A 77-year-old white female with complex medical history of valvular heart disease, chronic renal insufficiency and severe emphysema, congestive heart failure with bilateral pleural effusions, right greater than left and significant debris and mucus that appears to be occluding the right lower lobe and partially right middle lobe bronchus. Certainly, we cannot rule out essentially obstructing lesion. I have explained to the patient that she will require bronchoscopy with bronchoalveolar lavage and possible biopsy. We will schedule her for Friday and will continue her on IV heparin and hold her Coumadin for now. Thoracentesis may also be indicated if significant fluid exists by ultrasound. Patient is currently on prednisone therapy. We will hold the Coumadin and she is also receiving IV iron therapy for her anemia as well as aerosolized bronchodilator.
[2018-01-22] MEDS: RANITIDINE HCL 150 MG TAB PO SCH (21:16)
[2018-01-22] MEDS: GABAPENTIN 100 MG CAP PO SCH (21:16)
[2018-01-23] VITALS (10 sets, daily range): BP systolic 115–134; BP diastolic 52–72; PULSE 71–86; TEMP 36.3–37; O2SAT 92–97
[2018-01-23] MEDS: IPRATROPIUM BROMIDE NEB SOLN 0.02% 2.5 ML VIAL INH SCH ×4 (01:47→19:05)
[2018-01-23] MEDS: LEVALBUTEROL 0.63MG/3 ML NEB INH SCH ×4 (01:47→19:05)
[2018-01-23] MEDS: HEPARIN 25,000 UNIT/500ML D5W 500 ML IV SCH (02:15)
[2018-01-23 05:46] LABS: HEMATOCRIT 27.9 % (37-47); HEMOGLOBIN 9.1 g/dL (12.0-16.0); MEAN CELL VOLUME 110.7 fL (80-100); MEAN CORPUSCULAR HEMOGLOBIN 36.1 pg (25-34); MEAN CORPUSCULAR HGB CONC 32.6 g/dl (32-36); MEAN PLATELET VOLUME 9.7 fL (7.4-10.4); PLATELET COUNT 160 K/uL (130-400); RED CELL DISTRIBUTION WIDTH SD 59.4 fL (36.4-46.3); WHITE BLOOD COUNT 5.76 K/uL (4.8-10.8)
[2018-01-23] MEDS: LEVOTHYROXINE 25 MCG TAB PO SCH (06:02)
[2018-01-23 06:10] LABS: INR 1.5 (0.9-1.1)
[2018-01-23 06:15] LABS: PTT PATIENT 69.5 SECONDS (21.0-31.0)
[2018-01-23 06:24] LABS: CALCIUM 8.8 mg/dl (8.5-10.1); CREATININE 2.85 mg/dl (0.60-1.20); POTASSIUM 3.6 mmol/L (3.5-5.1)
[2018-01-23] MEDS: MONTELUKAST SOD 10 MG TAB PO SCH (08:21)
[2018-01-23] MEDS: PANTOprazole SOD 40 MG TAB PO SCH ×2 (08:21→21:06)
[2018-01-23] MEDS: ALLOPURINOL 100 MG TAB PO SCH (08:22)
[2018-01-23] MEDS: FERROUS FUMARATE CONTR REL CAP 65 MG CAPCR PO SCH (08:22)
[2018-01-23] MEDS: DOXYCYCLINE HYCLATE 100 MG CAP PO SCH ×2 (08:22→21:06)
[2018-01-23] MEDS: ISOSORBIDE MONONITRATE 60 MG TABCR PO SCH (08:22)
[2018-01-23] MEDS: METOPROLOL TARTRATE 50 MG TAB PO SCH ×2 (08:22→21:06)
[2018-01-23] MEDS: POTASSIUM CHLORIDE 20 MEQ TABCR PO SCH ×2 (08:22→21:07)
[2018-01-23] MEDS: CYANOCOBALAMIN 500 MCG TAB (VIT B-12) PO SCH (08:23)
[2018-01-23] MEDS: UMECLIDINIUM-VILANTEROL (ANORO) INH SCH (08:23)
[2018-01-23] MEDS: FUROSEMIDE 40 MG TAB PO SCH ×2 (08:24→16:19)
[2018-01-23] MEDS: IRON SUCROSE INJ 200 MG in SODIUM CHLORIDE 0.9% 100ML 100 ML IV SCH (08:40)
--- NOTE | 2018-01-23 10:16 | Cardiology Follow-Up ---
Subjective General Date of Service: January 23, 2018. Chief Complaint: CHF Pt evaluation today including: conversation w/ patient, conversation w/ family , physical exam, chart review, lab review, review of studies, review of inpatient medication list History of Present Illness Patient seen and examined. Chart, medications, and telemetry reviewed. Daughters at bedside. No chest pain or palpitations. No orthopnea or PND. For bronchoscopy on Friday. Continuous telemetry monitoring reveals atrial fibrillation, currently in the 80 's, with a controlled ventricular response. Rare PVC in singles. Allergies Coded Allergies: Amlodipine (Verified Allergy, Unknown, edema per medical record, 12/12/17) Social History Smoking Status: Current Every Day Smoker Hx Tobacco Use In Past Year?: Yes Hx Alcohol Use - Type And Amou: Yes (1 glass of wine daily) Hx Substance Use - Type And Am: No Problem List Medical Problems: (1) CHF (congestive heart failure) Status: Acute (2) CHF (congestive heart failure) Status: Acute (3) Hypoxia Status: Acute (4) Pleural effusion Status: Acute Physical Exam Vital Signs Last Vital Signs Documentation Date Time Temp Pulse Resp B/P (MAP) Pulse Ox O2 Delivery O2 Flow Rate FiO2 01/23/18 08:07 36.8 83 18 129/52 (77) 95 Nasal Cannula 2.0 01/21/18 04:00 40 Physical Exam Constitutional: Level of Distress: NAD, chronically ill Psychiatric: Mental Status: active & alert Orientation: to time, to place, to person Memory: recent memory normal, remote memory normal Head: normocephalic, atraumatic Eyes: Pupils: PERRLA Neck: pertinent finding (Normal JVP) Lungs: Respiratory effort: no dyspnea Auscultation: deminished air movement, decreased breath sounds, expiratory wheezing Cardiovascular: Heart Auscultation: II/ REGINA, irregular rate rhythm, pertinent finding ( crisp mechanical valve sounds) Peripheral Pulses: Radial Pulse: normal on the left, normal on the right Dorsalis Pedis Pulse: decreased on the left, decreased on the right Abdomen: Bowel Sounds: normal Inspection & Palpation: soft, non-distended, no masses Extremities: no cyanosis, no edema, no clubbing Neurologic: Cranial Nerves: grossly intact Assessment and Plan Assessment and Plan Complex 77-year-old female admitted with acute decompensated diastolic heart failure secondary to noncompliance with her standard diuretic regimen, inadvertently decreasing furosemide from 160 mg twice per day to 40 mg per day. Patient responded well to IV diuretic therapy, now back on her prior oral diuretic regimen with stable renal dysfunction. Would continue current therapies as prescribed. She requires Heparin bridging back to proper Coumadin anticoagulation (INR goal 2.5 to 3.5) given the 27 mm Rehman Medtronic mechanical mitral valve valve, 23 mm Carbomedic aortic valve replacement, and the chronic atrial fibrillation. No aspirin. She is scheduled for routine cardiology follow- up at [facility] on February 12, 2018 at 12:45 PM. Please call if any questions or concerns. Patient seen and examined, plan as outlined above. Joel Doll MD Laboratory Results Last 24 Hours Test 01/22/18 14:58 01/23/18 05:31 Activated Partial Thromboplast Time 53.7 SECONDS 69.5 SECONDS Partial Thromboplastin Ratio 2.1 2.7 White Blood Count 5.76 K/uL Red Blood Count 2.52 M/uL Hemoglobin 9.1 g/dL Hematocrit 27.9 % Mean Corpuscular Volume 110.7 fL Mean Corpuscular Hemoglobin 36.1 pg Mean Corpuscular Hemoglobin Concent 32.6 g/dl RDW Standard Deviation 59.4 fL RDW Coefficient of Variation 15.0 % Platelet Count 160 K/uL Mean Platelet Volume 9.7 fL Prothrombin Time 15.5 SECONDS Prothromb Time International Ratio 1.5 Sodium Level 136 mmol/L Potassium Level 3.6 mmol/L Chloride Level 101 mmol/L Carbon Dioxide Level 28 mmol/L Anion Gap 7.0 mmol/L Blood Urea Nitrogen 69 mg/dl Creatinine 2.85 mg/dl Est Creatinine Clear Calc Drug Dose 13.1 ml/min Estimated GFR () 17.7 Estimated GFR (Non- 15.3 BUN/Creatinine Ratio 24.2 Random Glucose 120 mg/dl Calcium Level 8.8 mg/dl
--- NOTE | 2018-01-23 11:17 | PULMONARY PROGRESS NOTE ---
DATE: 01/23/2018 SUBJECTIVE: The patient feels somewhat better than yesterday, much less dyspneic, anxious to proceed with bronchoscopy. Sputum minimal. PHYSICAL EXAMINATION: CURRENT VITAL SIGNS: Temperature 36.8, pulse 83 and regular, respiratory rate 18, blood pressure 122/52, O2 sat 95% on 2 liters. SKIN: Warm and dry. HEENT: Atraumatic, normocephalic, PERRLA, EOMI. Conjunctivae pale. Sclerae nonicteric. Fundi poorly visualized. NECK: Neck veins are not distended at 45 degrees. No obvious adenopathy in the supra or infraclavicular areas. LUNGS: Decreased breath sounds, right base and right posterior lung field, scattered rhonchi. CARDIAC: Irregularly irregular rhythm. Grade 2/6 systolic murmur heard at the lower left sternal border. [place] valve sounds. No S3. ABDOMEN: Soft, protuberant. EXTREMITIES: No significant pedal edema, clubbing or cyanosis. NEUROLOGIC: Intact. No lateralizing signs. IMAGING: Chest CT scan as noted (see consultation noted). CURRENT LABORATORY WORK: White count 5700, H and H 9.1 and 27.9. PT/INR 1.5, PTT/INR 2.7, BUN 69, creatinine 2.85. The patient is currently on 40 mg of prednisone, IV iron, sucrose along with the Darío-Sequels, doxycycline, aerosolized bronchodilator and IV heparin. Coumadin is on hold. OVERALL ASSESSMENT: A 77-year-old white female with chronic atrial fibrillation, valvular heart disease, chronic renal insufficiency and COPD with ongoing smoking habit with partial right middle lobe and full right lower lobe collapse with effusion. While I do not see essentially obstructing neoplasm, certainly that has to be ruled out and we will schedule her for bronchoscopy on Friday morning. We will hold on any additional Coumadin, keep the IV heparin going and stop at midnight, Friday night and recheck PTT in the morning. The patient will undergo bronchoscopic evaluation. Hopefully, we are seeing mucoid impaction and not a centrally obstructing neoplasm. I have spoken with the patient and her 2 daughters this morning and they understand our plan to proceed on Friday for bronchoscopic intervention. SAMMIE
--- NOTE | 2018-01-23 12:01 | Progress Note ---
Medicine Progress Note Date & Time of Visit: January 23, 2018 at 12:01. Subjective Seen resting in bed side chair, in good spirits, comfortable States she continues to feel improved Less dyspnea, occasional sputum- clear No chest pain Denies other symptoms Objective Last 8 Hrs Date Time Temp Pulse Resp B/P (MAP) Pulse Ox O2 Delivery O2 Flow Rate FiO2 01/23/18 11:47 36.9 76 19 115/63 (80) 96 Nasal Cannula 2.0 01/23/18 08:07 36.8 83 18 129/52 (77) 95 Nasal Cannula 2.0 01/23/18 08:00 Nasal Cannula 2.0 01/23/18 07:09 71 16 94 Nasal Cannula 2.0 01/23/18 04:26 36.6 82 19 120/62 (81) 94 Nasal Cannula 01/23/18 04:02 Nasal Cannula 2.0 Physical Exam: General-oriented 3, not in distress, speaking in sentences, no effort, no accessory muscle use Head- atraumatic Eyes- anicteric Neck- no JVD Lungs decreased breath sounds right mid to base, mild rales or wheezes Heart-normal rate, regular rhythm; no murmur Abdomen- normal bowel sounds, soft, nontender, nondistended Extremities- no pretibial edema, no calf tenderness Neuro- alert, oriented x 3 no gross focal neurologic deficits Skin- warm & dry Laboratory Results: Last 24 Hours Test 01/22/18 14:58 01/23/18 05:31 Activated Partial Thromboplast Time 53.7 SECONDS 69.5 SECONDS Partial Thromboplastin Ratio 2.1 2.7 White Blood Count 5.76 K/uL Red Blood Count 2.52 M/uL Hemoglobin 9.1 g/dL Hematocrit 27.9 % Mean Corpuscular Volume 110.7 fL Mean Corpuscular Hemoglobin 36.1 pg Mean Corpuscular Hemoglobin Concent 32.6 g/dl RDW Standard Deviation 59.4 fL RDW Coefficient of Variation 15.0 % Platelet Count 160 K/uL Mean Platelet Volume 9.7 fL Prothrombin Time 15.5 SECONDS Prothromb Time International Ratio 1.5 Sodium Level 136 mmol/L Potassium Level 3.6 mmol/L Chloride Level 101 mmol/L Carbon Dioxide Level 28 mmol/L Anion Gap 7.0 mmol/L Blood Urea Nitrogen 69 mg/dl Creatinine 2.85 mg/dl Est Creatinine Clear Calc Drug Dose 13.1 ml/min Estimated GFR () 17.7 Estimated GFR (Non- 15.3 BUN/Creatinine Ratio 24.2 Random Glucose 120 mg/dl Calcium Level 8.8 mg/dl Assessment & Plan 77-year-old female with a history of diastolic CHF, status post mechanical aortic valve replacement, status post mitral valve replacement, Chronic respiratory failure on oxygen 2-3 L by nasal cannula, COPD, hypertension , CKD stage IV presenting with shortness of breath ACUTE ON CHRONIC DIASTOLIC CONGESTIVE HEART FAILURE Secondary to accidentally taking with reduced dose of her usual Lasix usually on Lasix 160 mg P.o. twice daily given Lasix IV 80 mg twice daily diuresed well -- now back to Lasix 160mg po BID Appears euvolemic Nephrology and cardiology consulted COPD EXACERBATION -- possible Acute Bronchitis -- started Solumedrol 40mg q8h--> transitioned to PO prednisone Nebs q4h Doxycyline 100mg BID Day 3 Ellipta continued RIGHT MIDDLE AND LOWER LOBE COLLAPSE, POSSIBLE RIGHT-SIDED PLEURAL EFFUSION Based on CT chest Pulmonary service consulted Plan for bronchoscopy on Friday Coumadin held starting today Hold heparin on the midnight of Thursday, January 25, 2018 in anticipation of bronchoscopy in the a.m. of January 26, 2018 ACUTE ON CHRONIC RESPIRATORY FAILURE SECONDARY TO CHRONIC OBSTRUCTIVE PULMONARY DISEASE AND CONGESTIVE HEART FAILURE. Management of CHF as noted above ACUTE KIDNEY INJURY ON CHRONIC KIDNEY DISEASE STAGE IV. Resolving Nephrology consulted, appreciate recommendations HYPERTENSION Continue hydralazine, Imdur, Lopressor. STATUS POST MECHANICAL MITRAL VALVE REPLACEMENT AND AORTIC VALVE REPLACEMENT INR 1.5 Goal INR is 2.5-3.5 Coumadin held starting today, continue heparin Hold heparin on the midnight of Thursday, January 25, 2018 in anticipation of bronchoscopy in the a.m. of January 26, 2018 ATRIAL FIBRILLATION. Which one Rate is under control on Lopressor On heparin drip Tobacco use. - smoking cessation counseling. Deep venous thrombosis prophylaxis On heparin drip Disposition PT OT ordered Current Inpatient Medications: Current Inpatient Medications Medications (Trade) Dose Ordered Sig/Shana Route Start Time Stop Time Status Last Admin Dose Admin Acetaminophen (Tylenol Tab) 650 mg Q4H PRN PO 01/19/18 20:15 02/18/18 20:14 Al Hydrox/Mg Hydrox/Simethicone (Maalox Max Susp) 15 ml Q4H PRN PO 01/19/18 20:15 02/18/18 20:14 Ondansetron HCl (Zofran Inj) 4 mg Q6H PRN IV 01/19/18 20:15 02/18/18 20:14 Nitroglycerin (Nitrostat Tab) 0.4 mg UD PRN SL 01/19/18 20:15 02/18/18 20:14 Polyethylene (Miralax Powder Packet) 17 gm DAILY PRN PO 01/19/18 20:15 02/18/18 20:14 01/22/18 16:38 17 GM Allopurinol (Zyloprim Tab) 100 mg QAM PO 01/20/18 09:00 02/19/18 08:59 01/23/18 08:22 100 MG Calcitriol (Rocaltrol Cap) 0.25 mcg MoTh@1400 PO 01/22/18 14:00 02/21/18 13:59 01/22/18 14:52 0.25 MCG Cyanocobalamin (Vitamin B-12 Tab) 1,000 mcg DAILY PO 01/20/18 09:00 02/19/18 08:59 01/23/18 08:23 1,000 MCG Folic Acid (Folvite Tab) 1 mg QAM PO 01/20/18 09:00 02/19/18 08:59 01/23/18 08:22 1 MG Gabapentin (Neurontin Cap) 100 mg HS PO 01/19/18 21:00 02/18/18 20:59 01/22/18 21:16 100 MG Guaifenesin (Organidin Nr Tab) 200 mg Q6 PRN PO 01/19/18 20:15 02/18/18 20:14 Hydralazine HCl (Apresoline Tab) 50 mg TID PO 01/19/18 21:00 02/18/18 20:59 01/23/18 08:23 50 MG Isosorbide Mononitrate (Imdur Ext Rel Tab) 60 mg QAM PO 01/20/18 09:00 02/19/18 08:59 01/23/18 08:22 60 MG Levothyroxine Sodium (Synthroid Tab) 25 mcg DAILYBB PO 01/20/18 06:00 02/19/18 05:59 01/23/18 06:02 25 MCG Metoprolol Tartrate (Lopressor Tab) 50 mg BID PO 01/19/18 22:00 02/18/18 21:59 01/23/18 08:22 50 MG Montelukast Sodium (Singulair Tab) 10 mg DAILY PO 01/20/18 09:00 02/19/18 08:59 01/23/18 08:21 10 MG Pantoprazole Sodium (Protonix Tab) 40 mg BID PO 01/19/18 22:00 02/18/18 21:59 01/23/18 08:21 40 MG Potassium Chloride (Klor-Con Tab) 20 meq BID PO 01/19/18 22:00 02/18/18 21:59 01/23/18 08:22 20 MEQ Ranitidine HCl (zANTac TAB) 300 mg HS PO 01/19/18 21:00 02/18/18 20:59 01/22/18 21:16 300 MG Albuterol (Ventolin Hfa Inhaler) 2 puffs Q4 PRN INH 01/20/18 10:30 02/19/18 10:29 Heparin Sodium/ Dextrose 500 ml @ 18 mls/hr Q24H IV 01/20/18 11:45 02/19/18 11:44 Future Hold 01/23/18 02:15 18 MLS/HR Furosemide (Lasix Tab) 160 mg BID17 PO 01/21/18 10:00 02/20/18 09:59 01/23/18 08:24 160 MG Ferrous Fumarate (Darío-Sequels Contr Rel Cap) 65 mg QAM PO 01/22/18 09:00 02/21/18 08:59 01/23/18 08:22 65 MG Levalbuterol (Xopenex 0.63 Mg/ 3 Ml Neb) 0.63 mg Q6R INH 01/21/18 15:00 02/20/18 14:59 01/23/18 07:09 0.63 MG Ipratropium [place] (Atrovent 0.02% 0.5MG/2.5ML Neb) 0.5 mg Q6R INH 01/21/18 15:00 02/20/18 14:59 01/23/18 07:09 0.5 MG Doxycycline Hyclate (Vibramycin Cap) 100 mg BID PO 01/21/18 21:00 01/28/18 20:59 01/23/18 08:22 100 MG Prednisone (PredniSONE TAB) 40 mg DAILY PO 01/23/18 09:00 02/22/18 08:59 01/23/18 08:24 40 MG Iron Sucrose 200 mg/Sodium Chloride 110 ml @ 220 mls/hr DAILY IV 01/23/18 09:00 01/24/18 11:00 01/23/18 08:40 220 MLS/HR Dextrose 1,000 ml @ 15 mls/hr Q24H IV 01/22/18 15:28 01/23/18 15:27 01/22/18 16:24 15 MLS/HR
[2018-01-23] MEDS ORDERED: WARFARIN SOD 1.25 MG TAB PO SCH (16:00)
[2018-01-23] MEDS ORDERED: NURSING VERBAL MED ORDER ONE (16:30)
[2018-01-23] MEDS: POLYETHYLENE (MIRALAX) 17 GM PACK PO PRN (21:03)
[2018-01-23] MEDS: GABAPENTIN 100 MG CAP PO SCH (21:06)
[2018-01-23] MEDS: RANITIDINE HCL 150 MG TAB PO SCH (21:06)
[2018-01-24] VITALS (12 sets, daily range): BP systolic 115–146; BP diastolic 61–79; PULSE 72–94; TEMP 36.6–37.2; O2SAT 90–96
[2018-01-24] MEDS: IPRATROPIUM BROMIDE NEB SOLN 0.02% 2.5 ML VIAL INH SCH ×4 (01:37→19:11)
[2018-01-24] MEDS: LEVALBUTEROL 0.63MG/3 ML NEB INH SCH ×4 (01:37→19:11)
[2018-01-24 05:19] LABS: INR 1.4 (0.9-1.1)
[2018-01-24 05:23] LABS: CALCIUM 8.6 mg/dl (8.5-10.1); CREATININE 2.86 mg/dl (0.60-1.20)
[2018-01-24 05:27] LABS: PTT PATIENT 58.5 SECONDS (21.0-31.0)
[2018-01-24] MEDS: LEVOTHYROXINE 25 MCG TAB PO SCH (06:08)
[2018-01-24] MEDS: HEPARIN 25,000 UNIT/500ML D5W 500 ML IV SCH (06:10)
[2018-01-24] MEDS: MONTELUKAST SOD 10 MG TAB PO SCH (08:17)
[2018-01-24] MEDS: METOPROLOL TARTRATE 50 MG TAB PO SCH ×2 (08:17→21:02)
[2018-01-24] MEDS: PANTOprazole SOD 40 MG TAB PO SCH ×2 (08:18→21:05)
[2018-01-24] MEDS: FUROSEMIDE 40 MG TAB PO SCH ×2 (08:18→16:42)
[2018-01-24] MEDS: CYANOCOBALAMIN 500 MCG TAB (VIT B-12) PO SCH (08:18)
[2018-01-24] MEDS: DOXYCYCLINE HYCLATE 100 MG CAP PO SCH ×2 (08:18→21:05)
[2018-01-24] MEDS: FERROUS FUMARATE CONTR REL CAP 65 MG CAPCR PO SCH (08:18)
[2018-01-24] MEDS: POTASSIUM CHLORIDE 20 MEQ TABCR PO SCH ×2 (08:18→21:03)
[2018-01-24] MEDS: ALLOPURINOL 100 MG TAB PO SCH (08:18)
[2018-01-24] MEDS: ISOSORBIDE MONONITRATE 60 MG TABCR PO SCH (08:18)
[2018-01-24] MEDS: UMECLIDINIUM-VILANTEROL (ANORO) INH SCH (08:19)
[2018-01-24] MEDS: IRON SUCROSE INJ 200 MG in SODIUM CHLORIDE 0.9% 100ML 100 ML IV SCH (08:36)
--- NOTE | 2018-01-24 14:56 | Progress Note ---
Medicine Progress Note Date & Time of Visit: January 24, 2018 at 14:53. Subjective patient seen resting in bed, comfortable in good spirits has dry cough after nebs, improving no chest pain, dyspnea no other symptoms Objective Last 8 Hrs Date Time Temp Pulse Resp B/P (MAP) Pulse Ox O2 Delivery O2 Flow Rate FiO2 01/24/18 14:19 74 16 94 Nasal Cannula 2.0 01/24/18 12:00 Nasal Cannula 2.0 01/24/18 11:38 37.0 81 16 127/73 (91) 95 Nasal Cannula 2.0 01/24/18 08:00 Nasal Cannula 2.0 01/24/18 07:31 72 16 93 Nasal Cannula 2.0 Physical Exam: General-oriented 3, not in distress, speaking in sentences, no effort, no accessory muscle use Eyes- anicteric Neck- no JVD Lungs decreased breath sounds right mid to base, no rales, no wheezes Heart-normal rate, regular rhythm; no murmur Abdomen- normal bowel sounds, soft, nontender, nondistended Extremities- no pretibial edema, no calf tenderness Neuro- alert, oriented x 3 no gross focal neurologic deficits Skin- warm & dry Laboratory Results: Last 24 Hours Test 01/24/18 04:27 Prothrombin Time 15.0 SECONDS Prothromb Time International Ratio 1.4 Activated Partial Thromboplast Time 58.5 SECONDS Partial Thromboplastin Ratio 2.3 Sodium Level 136 mmol/L Potassium Level 4.0 mmol/L Chloride Level 100 mmol/L Carbon Dioxide Level 29 mmol/L Anion Gap 7.0 mmol/L Blood Urea Nitrogen 77 mg/dl Creatinine 2.86 mg/dl Est Creatinine Clear Calc Drug Dose 13.0 ml/min Estimated GFR () 17.7 Estimated GFR (Non- 15.2 BUN/Creatinine Ratio 26.9 Random Glucose 92 mg/dl Calcium Level 8.6 mg/dl Assessment & Plan 77-year-old female with a history of diastolic CHF, status post mechanical aortic valve replacement, status post mitral valve replacement, Chronic respiratory failure on oxygen 2-3 L by nasal cannula, COPD, hypertension , CKD stage IV presenting with shortness of breath ACUTE ON CHRONIC DIASTOLIC CONGESTIVE HEART FAILURE Secondary to accidentally taking with reduced dose of her usual Lasix usually on Lasix 160 mg P.o. twice daily given Lasix IV 80 mg twice daily diuresed well -- now back to Lasix 160mg po BID Appears euvolemic Nephrology and cardiology consulted COPD EXACERBATION -- possible Acute Bronchitis -- started Solumedrol 40mg q8h--> transitioned to PO prednisone Nebs q4h Doxycyline 100mg BID Day 12/27 Ellipta continued RIGHT MIDDLE AND LOWER LOBE COLLAPSE, POSSIBLE RIGHT-SIDED PLEURAL EFFUSION Based on CT chest Pulmonary service consulted Plan for bronchoscopy on Friday Coumadin held Hold heparin on the midnight of Thursday, January 25, 2018 in anticipation of bronchoscopy in the a.m. of January 26, 2018 ACUTE ON CHRONIC RESPIRATORY FAILURE SECONDARY TO CHRONIC OBSTRUCTIVE PULMONARY DISEASE AND CONGESTIVE HEART FAILURE. Management of CHF as noted above ACUTE KIDNEY INJURY ON CHRONIC KIDNEY DISEASE STAGE IV. Resolving Nephrology consulted, appreciate recommendations HYPERTENSION Continue hydralazine, Imdur, Lopressor. STATUS POST MECHANICAL MITRAL VALVE REPLACEMENT AND AORTIC VALVE REPLACEMENT INR 1.5 Goal INR is 2.5-3.5 Coumadin held starting today, continue heparin Hold heparin on the midnight of Thursday, January 25, 2018 in anticipation of bronchoscopy in the a.m. of January 26, 2018 ATRIAL FIBRILLATION. Rate is under control on Lopressor On heparin drip Tobacco use. - smoking cessation counseling. Deep venous thrombosis prophylaxis On heparin drip Disposition PT OT ordered Current Inpatient Medications: Current Inpatient Medications Medications (Trade) Dose Ordered Sig/Shana Route Start Time Stop Time Status Last Admin Dose Admin Acetaminophen (Tylenol Tab) 650 mg Q4H PRN PO 01/19/18 20:15 02/18/18 20:14 Al Hydrox/Mg Hydrox/Simethicone (Maalox Max Susp) 15 ml Q4H PRN PO 01/19/18 20:15 02/18/18 20:14 Ondansetron HCl (Zofran Inj) 4 mg Q6H PRN IV 01/19/18 20:15 02/18/18 20:14 Nitroglycerin (Nitrostat Tab) 0.4 mg UD PRN SL 01/19/18 20:15 02/18/18 20:14 Polyethylene (Miralax Powder Packet) 17 gm DAILY PRN PO 01/19/18 20:15 02/18/18 20:14 01/23/18 21:03 17 GM Allopurinol (Zyloprim Tab) 100 mg QAM PO 01/20/18 09:00 02/19/18 08:59 5/5/18 08:18 100 MG Calcitriol (Rocaltrol Cap) 0.25 mcg MoTh@1400 PO 01/22/18 14:00 02/21/18 13:59 01/22/18 14:52 0.25 MCG Cyanocobalamin (Vitamin B-12 Tab) 1,000 mcg DAILY PO 01/20/18 09:00 02/19/18 08:59 01/24/18 08:18 1,000 MCG Folic Acid (Folvite Tab) 1 mg QAM PO 01/20/18 09:00 02/19/18 08:59 01/24/18 08:18 1 MG Gabapentin (Neurontin Cap) 100 mg HS PO 01/19/18 21:00 02/18/18 20:59 01/23/18 21:06 100 MG Guaifenesin (Organidin Nr Tab) 200 mg Q6 PRN PO 01/19/18 20:15 02/18/18 20:14 Hydralazine HCl (Apresoline Tab) 50 mg TID PO 01/19/18 21:00 02/18/18 20:59 01/24/18 13:53 50 MG Isosorbide Mononitrate (Imdur Ext Rel Tab) 60 mg QAM PO 01/20/18 09:00 02/19/18 08:59 01/24/18 08:18 60 MG Levothyroxine Sodium (Synthroid Tab) 25 mcg DAILYBB PO 01/20/18 06:00 02/19/18 05:59 01/24/18 06:08 25 MCG Metoprolol Tartrate (Lopressor Tab) 50 mg BID PO 01/19/18 22:00 02/18/18 21:59 01/24/18 08:17 50 MG Montelukast Sodium (Singulair Tab) 10 mg DAILY PO 01/20/18 09:00 02/19/18 08:59 01/24/18 08:17 10 MG Pantoprazole Sodium (Protonix Tab) 40 mg BID PO 01/19/18 22:00 02/18/18 21:59 01/24/18 08:18 40 MG Potassium Chloride (Klor-Con Tab) 20 meq BID PO 01/19/18 22:00 02/18/18 21:59 01/24/18 08:18 20 MEQ Ranitidine HCl (zANTac TAB) 300 mg HS PO 01/19/18 21:00 02/18/18 20:59 01/23/18 21:06 300 MG Albuterol (Ventolin Hfa Inhaler) 2 puffs Q4 PRN INH 01/20/18 10:30 02/19/18 10:29 Heparin Sodium/ Dextrose 500 ml @ 18 mls/hr Q24H IV 01/20/18 11:45 02/19/18 11:44 Future Hold 01/24/18 06:10 18 MLS/HR Furosemide (Lasix Tab) 160 mg BID17 PO 01/21/18 10:00 02/20/18 09:59 01/24/18 08:18 160 MG Ferrous Fumarate (Darío-Sequels Contr Rel Cap) 65 mg QAM PO 01/22/18 09:00 02/21/18 08:59 01/24/18 08:18 65 MG Levalbuterol (Xopenex 0.63 Mg/ 3 Ml Neb) 0.63 mg Q6R INH 01/21/18 15:00 02/20/18 14:59 01/24/18 14:18 0.63 MG Ipratropium [place] (Atrovent 0.02% 0.5MG/2.5ML Neb) 0.5 mg Q6R INH 01/21/18 15:00 02/20/18 14:59 01/24/18 14:18 0.5 MG Doxycycline Hyclate (Vibramycin Cap) 100 mg BID PO 01/21/18 21:00 01/28/18 20:59 01/24/18 08:18 100 MG Prednisone (PredniSONE TAB) 40 mg DAILY PO 01/23/18 09:00 02/22/18 08:59 01/24/18 08:18 40 MG
--- NOTE | 2018-01-24 16:06 | Pulmonology Progress Note ---
Pulmonary Progress Note Date of Service January 24, 2018. Attending Dr. Gregg Subjective Patient is stable today sitting up in bed not using accessory muscles on 2 L nasal cannula: Notes she is not back to her baseline respiratory status and having some notable dyspnea on exertion Objective Patient's today sitting in bed doing well no signs of respiratory insufficiency: Admitted 01/19/2018 progressive dyspnea and on workup radiographs show a right lower lobe/right middle lobe opacification with bronchial obstruction: Vital signs: Stable on 2 L Respiratory: Decreased breath sounds with rhonchi appreciated at right base Cardiac: S1-S2 4-6 systolic murmur best appreciated right upper sternal border as well as apex Abdomen: Positive bowel sounds soft nontender Extremities: No clubbing cyanosis or edema PmHx: Diastolic heart failure, rheumatic heart disease, mechanical AVR and MVR on Coumadin, hypertension, ongoing tobacco dependence, COPD, chronic kidney disease stage 4 (AV fistula) Assessment & Plan 77-year-old female admitted with progressive dyspnea and found to have right lower lobe infiltrate/bronchial obstruction: 1. Right lower lobe bronchial obstruction/atelectasis: Patient is on long-term anticoagulation for aortic and mitral valve replacement currently on heparin drip secondary to renal insufficiency. She is to undergo bronchoscopic evaluation of this obstruction of the right lower lobe on 01/26/2018. Will require NPO status after midnight on 01/25/2018. Will also require holding her heparin admitted item 5 03/11/2018. I did speak to the family as well as the patient at length about the bronchoscopic intervention and they have agreed to move forward and consent for the procedure had been sign. Data Medications: Current Inpatient Medications Medications (Trade) Dose Ordered Sig/Shana Route Start Time Stop Time Status Last Admin Dose Admin Acetaminophen (Tylenol Tab) 650 mg Q4H PRN PO 01/19/18 20:15 02/18/18 20:14 Al Hydrox/Mg Hydrox/Simethicone (Maalox Max Susp) 15 ml Q4H PRN PO 01/19/18 20:15 02/18/18 20:14 Ondansetron HCl (Zofran Inj) 4 mg Q6H PRN IV 01/19/18 20:15 02/18/18 20:14 Nitroglycerin (Nitrostat Tab) 0.4 mg UD PRN SL 01/19/18 20:15 02/18/18 20:14 Polyethylene (Miralax Powder Packet) 17 gm DAILY PRN PO 01/19/18 20:15 02/18/18 20:14 01/23/18 21:03 17 GM Allopurinol (Zyloprim Tab) 100 mg QAM PO 01/20/18 09:00 02/19/18 08:59 01/24/18 08:18 100 MG Calcitriol (Rocaltrol Cap) 0.25 mcg MoTh@1400 PO 01/22/18 14:00 02/21/18 13:59 01/22/18 14:52 0.25 MCG Cyanocobalamin (Vitamin B-12 Tab) 1,000 mcg DAILY PO 01/20/18 09:00 02/19/18 08:59 01/24/18 08:18 1,000 MCG Folic Acid (Folvite Tab) 1 mg QAM PO 01/20/18 09:00 02/19/18 08:59 01/24/18 08:18 1 MG Gabapentin (Neurontin Cap) 100 mg HS PO 01/19/18 21:00 02/18/18 20:59 01/23/18 21:06 100 MG Guaifenesin (Organidin Nr Tab) 200 mg Q6 PRN PO 01/19/18 20:15 02/18/18 20:14 Hydralazine HCl (Apresoline Tab) 50 mg TID PO 01/19/18 21:00 02/18/18 20:59 01/24/18 13:53 50 MG Isosorbide Mononitrate (Imdur Ext Rel Tab) 60 mg QAM PO 01/20/18 09:00 02/19/18 08:59 01/24/18 08:18 60 MG Levothyroxine Sodium (Synthroid Tab) 25 mcg DAILYBB PO 01/20/18 06:00 02/19/18 05:59 01/24/18 06:08 25 MCG Metoprolol Tartrate (Lopressor Tab) 50 mg BID PO 01/19/18 22:00 02/18/18 21:59 01/24/18 08:17 50 MG Montelukast Sodium (Singulair Tab) 10 mg DAILY PO 01/20/18 09:00 02/19/18 08:59 01/24/18 08:17 10 MG Pantoprazole Sodium (Protonix Tab) 40 mg BID PO 01/19/18 22:00 02/18/18 21:59 01/24/18 08:18 40 MG Potassium Chloride (Klor-Con Tab) 20 meq BID PO 01/19/18 22:00 02/18/18 21:59 01/24/18 08:18 20 MEQ Ranitidine HCl (zANTac TAB) 300 mg HS PO 01/19/18 21:00 02/18/18 20:59 01/23/18 21:06 300 MG Albuterol (Ventolin Hfa Inhaler) 2 puffs Q4 PRN INH 01/20/18 10:30 02/19/18 10:29 Heparin Sodium/ Dextrose 500 ml @ 18 mls/hr Q24H IV 01/20/18 11:45 02/19/18 11:44 Future Hold 01/24/18 06:10 18 MLS/HR Furosemide (Lasix Tab) 160 mg BID17 PO 01/21/18 10:00 02/20/18 09:59 01/24/18 08:18 160 MG Ferrous Fumarate (Darío-Sequels Contr Rel Cap) 65 mg QAM PO 01/22/18 09:00 02/21/18 08:59 01/24/18 08:18 65 MG Levalbuterol (Xopenex 0.63 Mg/ 3 Ml Neb) 0.63 mg Q6R INH 01/21/18 15:00 02/20/18 14:59 01/24/18 14:18 0.63 MG Ipratropium [place] (Atrovent 0.02% 0.5MG/2.5ML Neb) 0.5 mg Q6R INH 01/21/18 15:00 02/20/18 14:59 01/24/18 14:18 0.5 MG Doxycycline Hyclate (Vibramycin Cap) 100 mg BID PO 01/21/18 21:00 01/28/18 20:59 01/24/18 08:18 100 MG Prednisone (PredniSONE TAB) 40 mg DAILY PO 01/23/18 09:00 02/22/18 08:59 01/24/18 08:18 40 MG I & O: 24-Hour Column 01/25/18 08:00 Intake Total 758 ml Output Total 800 ml Balance -42 ml Vital Signs: Date Time Temp Pulse Resp B/P (MAP) Pulse Ox O2 Delivery O2 Flow Rate FiO2 01/24/18 15:37 36.9 90 20 123/66 (85) 93 Nasal Cannula 2.0 01/24/18 14:19 74 16 94 Nasal Cannula 2.0 01/24/18 12:00 Nasal Cannula 2.0 01/24/18 11:38 37.0 81 16 127/73 (91) 95 Nasal Cannula 2.0 01/24/18 08:00 Nasal Cannula 2.0 01/24/18 07:31 72 16 93 Nasal Cannula 2.0 01/24/18 06:46 36.7 75 19 130/62 (84) 94 Nasal Cannula 2.0 01/24/18 04:02 Nasal Cannula 2.0 01/24/18 03:29 36.6 83 20 115/63 (80) 96 Nasal Cannula 2.0 01/24/18 01:37 75 16 95 Nasal Cannula 2.0 01/24/18 00:02 Nasal Cannula 2.0 01/23/18 23:06 36.8 77 19 126/72 (90) 97 Nasal Cannula 2.0 01/23/18 20:00 Nasal Cannula 2.0 01/23/18 19:17 37.0 84 20 132/56 (81) 93 Room Air 01/23/18 19:06 77 16 95 Nasal Cannula 2.0 01/23/18 16:05 36.3 86 16 134/62 (86) 92 Nasal Cannula 2.0 Laboratory Results: Last 24 Hours Test 01/24/18 04:27 Prothrombin Time 15.0 SECONDS Prothromb Time International Ratio 1.4 Activated Partial Thromboplast Time 58.5 SECONDS Partial Thromboplastin Ratio 2.3 Sodium Level 136 mmol/L Potassium Level 4.0 mmol/L Chloride Level 100 mmol/L Carbon Dioxide Level 29 mmol/L Anion Gap 7.0 mmol/L Blood Urea Nitrogen 77 mg/dl Creatinine 2.86 mg/dl Est Creatinine Clear Calc Drug Dose 13.0 ml/min Estimated GFR () 17.7 Estimated GFR (Non- 15.2 BUN/Creatinine Ratio 26.9 Random Glucose 92 mg/dl Calcium Level 8.6 mg/dl
[2018-01-24] MEDS: GABAPENTIN 100 MG CAP PO SCH (21:04)
[2018-01-24] MEDS: RANITIDINE HCL 150 MG TAB PO SCH (21:05)
[2018-01-25] VITALS (13 sets, daily range): BP systolic 121–152; BP diastolic 55–74; PULSE 83–90; TEMP 36.6–37; O2SAT 92–99
[2018-01-25] MEDS: IPRATROPIUM BROMIDE NEB SOLN 0.02% 2.5 ML VIAL INH SCH ×4 (02:01→19:09)
[2018-01-25] MEDS: LEVALBUTEROL 0.63MG/3 ML NEB INH SCH ×4 (02:01→19:09)
[2018-01-25] MEDS: LEVOTHYROXINE 25 MCG TAB PO SCH (06:02)
[2018-01-25 06:07] LABS: HEMATOCRIT 27.5 % (37-47); HEMOGLOBIN 8.8 g/dL (12.0-16.0); MEAN CELL VOLUME 112.2 fL (80-100); MEAN CORPUSCULAR HEMOGLOBIN 35.9 pg (25-34); PLATELET COUNT 158 K/uL (130-400); RED CELL DISTRIBUTION WIDTH CV 15.5 % (11.5-14.5); RED CELL DISTRIBUTION WIDTH SD 63.2 fL (36.4-46.3); WHITE BLOOD COUNT 5.29 K/uL (4.8-10.8)
[2018-01-25 06:37] LABS: CALCIUM 8.9 mg/dl (8.5-10.1); CREATININE 2.65 mg/dl (0.60-1.20); POTASSIUM 4.3 mmol/L (3.5-5.1)
[2018-01-25 06:39] LABS: PTT PATIENT 52.4 SECONDS (21.0-31.0)
[2018-01-25] MEDS: MONTELUKAST SOD 10 MG TAB PO SCH (08:43)
[2018-01-25] MEDS: DOXYCYCLINE HYCLATE 100 MG CAP PO SCH ×2 (08:43→21:47)
[2018-01-25] MEDS: ALLOPURINOL 100 MG TAB PO SCH (08:43)
[2018-01-25] MEDS: ISOSORBIDE MONONITRATE 60 MG TABCR PO SCH (08:43)
[2018-01-25] MEDS: POTASSIUM CHLORIDE 20 MEQ TABCR PO SCH ×2 (08:44→21:46)
[2018-01-25] MEDS: FERROUS FUMARATE CONTR REL CAP 65 MG CAPCR PO SCH (08:44)
[2018-01-25] MEDS: FUROSEMIDE 40 MG TAB PO SCH ×2 (08:45→17:38)
[2018-01-25] MEDS: METOPROLOL TARTRATE 50 MG TAB PO SCH ×2 (08:45→21:45)
[2018-01-25] MEDS: UMECLIDINIUM-VILANTEROL (ANORO) INH SCH (08:46)
[2018-01-25] MEDS: PANTOprazole SOD 40 MG TAB PO SCH ×2 (08:46→21:46)
[2018-01-25] MEDS: CYANOCOBALAMIN 500 MCG TAB (VIT B-12) PO SCH (08:47)
[2018-01-25] MEDS: POLYETHYLENE (MIRALAX) 17 GM PACK PO PRN (08:55)
[2018-01-25] MEDS: HEPARIN 25,000 UNIT/500ML D5W 500 ML IV SCH (09:57)
[2018-01-25] MEDS ORDERED: LACTULOSE SYRUP 30 GM/45 ML UDP PO ONE (13:48)
[2018-01-25] MEDS ORDERED: BISACODYL 10 MG SUPP PR PRN (14:00)
[2018-01-25] MEDS ORDERED: LACTULOSE SYRUP 30 GM/45 ML UDP PO PRN (14:00)
--- NOTE | 2018-01-25 17:48 | Pulmonology Progress Note ---
Pulmonary Progress Note Date of Service January 25, 2018. Attending Dr. Gregg Subjective Patient doing well sitting up in bed on 2 liters nasal cannula eating no acute pulmonary complaints: Objective Patient doing well sitting up at the bedside eating her dinner showing no signs of pulmonary insufficiency of no active pulmonary complaints: Admitted 01/19/2018 progressive dyspnea and on workup radiographs show a right lower lobe/right middle lobe opacification with bronchial obstruction: Vital signs: Stable on 2 L Respiratory: Decreased breath sounds with rhonchi appreciated at right base Cardiac: S1-S2 4-6 systolic murmur best appreciated right upper sternal border as well as apex Abdomen: Positive bowel sounds soft nontender Extremities: No clubbing cyanosis or edema PmHx: Diastolic heart failure, rheumatic heart disease, mechanical AVR and MVR on Coumadin, hypertension, ongoing tobacco dependence, COPD, chronic kidney disease stage 4 (AV fistula) Assessment & Plan 77-year-old female admitted with progressive dyspnea and found to have right lower lobe infiltrate/bronchial obstruction: 1. Right lower lobe bronchial obstruction/atelectasis: Patient is to undergo bronchoscopic evaluation tomorrow on 01/26/2018. She has been placed NPO this evening and her heparin is post to be stopped at midnight on the evening of 02/2018. Data Medications: Current Inpatient Medications Medications (Trade) Dose Ordered Sig/Shana Route Start Time Stop Time Status Last Admin Dose Admin Acetaminophen (Tylenol Tab) 650 mg Q4H PRN PO 01/19/18 20:15 02/18/18 20:14 Al Hydrox/Mg Hydrox/Simethicone (Maalox Max Susp) 15 ml Q4H PRN PO 01/19/18 20:15 02/18/18 20:14 Ondansetron HCl (Zofran Inj) 4 mg Q6H PRN IV 01/19/18 20:15 02/18/18 20:14 Nitroglycerin (Nitrostat Tab) 0.4 mg UD PRN SL 01/19/18 20:15 02/18/18 20:14 Polyethylene (Miralax Powder Packet) 17 gm DAILY PRN PO 01/19/18 20:15 02/18/18 20:14 01/25/18 08:55 17 GM Allopurinol (Zyloprim Tab) 100 mg QAM PO 01/20/18 09:00 02/19/18 08:59 01/25/18 08:43 100 MG Calcitriol (Rocaltrol Cap) 0.25 mcg MoTh@1400 PO 01/22/18 14:00 02/21/18 13:59 01/22/18 14:52 0.25 MCG Cyanocobalamin (Vitamin B-12 Tab) 1,000 mcg DAILY PO 01/20/18 09:00 02/19/18 08:59 01/25/18 08:47 1,000 MCG Folic Acid (Folvite Tab) 1 mg QAM PO 01/20/18 09:00 02/19/18 08:59 01/25/18 08:44 1 MG Gabapentin (Neurontin Cap) 100 mg HS PO 01/19/18 21:00 02/18/18 20:59 01/24/18 21:04 100 MG Guaifenesin (Organidin Nr Tab) 200 mg Q6 PRN PO 01/19/18 20:15 02/18/18 20:14 Hydralazine HCl (Apresoline Tab) 50 mg TID PO 01/19/18 21:00 02/18/18 20:59 01/25/18 14:28 50 MG Isosorbide Mononitrate (Imdur Ext Rel Tab) 60 mg QAM PO 01/20/18 09:00 02/19/18 08:59 01/25/18 08:43 60 MG Levothyroxine Sodium (Synthroid Tab) 25 mcg DAILYBB PO 01/20/18 06:00 02/19/18 05:59 01/25/18 06:02 25 MCG Metoprolol Tartrate (Lopressor Tab) 50 mg BID PO 01/19/18 22:00 02/18/18 21:59 01/25/18 08:45 50 MG Montelukast Sodium (Singulair Tab) 10 mg DAILY PO 01/20/18 09:00 02/19/18 08:59 01/25/18 08:43 10 MG Pantoprazole Sodium (Protonix Tab) 40 mg BID PO 01/19/18 22:00 02/18/18 21:59 01/25/18 08:46 40 MG Potassium Chloride (Klor-Con Tab) 20 meq BID PO 01/19/18 22:00 02/18/18 21:59 01/25/18 08:44 20 MEQ Ranitidine HCl (zANTac TAB) 300 mg HS PO 01/19/18 21:00 02/18/18 20:59 01/24/18 21:05 300 MG Albuterol (Ventolin Hfa Inhaler) 2 puffs Q4 PRN INH 01/20/18 10:30 02/19/18 10:29 Heparin Sodium/ Dextrose 500 ml @ 18 mls/hr Q24H IV 01/20/18 11:45 02/19/18 11:44 Future Hold 01/25/18 09:57 18 MLS/HR Furosemide (Lasix Tab) 160 mg BID17 PO 01/21/18 10:00 02/20/18 09:59 01/25/18 17:38 160 MG Ferrous Fumarate (Darío-Sequels Contr Rel Cap) 65 mg QAM PO 01/22/18 09:00 02/21/18 08:59 01/25/18 08:44 65 MG Levalbuterol (Xopenex 0.63 Mg/ 3 Ml Neb) 0.63 mg Q6R INH 01/21/18 15:00 02/20/18 14:59 01/25/18 13:57 0.63 MG Ipratropium [place] (Atrovent 0.02% 0.5MG/2.5ML Neb) 0.5 mg Q6R INH 01/21/18 15:00 02/20/18 14:59 01/25/18 13:58 0.5 MG Doxycycline Hyclate (Vibramycin Cap) 100 mg BID PO 01/21/18 21:00 01/28/18 20:59 01/25/18 08:43 100 MG Prednisone (PredniSONE TAB) 40 mg DAILY PO 01/23/18 09:00 02/22/18 08:59 01/25/18 08:46 40 MG Lactulose (Chronulac Syrup) 30 gm BID PRN PO 01/25/18 14:00 02/24/18 13:59 Bisacodyl (Dulcolax Supp) 10 mg DAILY PRN [place] 01/25/18 14:00 02/24/18 13:59 I & O: 24-Hour Column 01/26/18 08:00 Intake Total 508 ml Output Total 300 ml Balance 208 ml Vital Signs: Date Time Temp Pulse Resp B/P (MAP) Pulse Ox O2 Delivery O2 Flow Rate FiO2 01/25/18 15:27 36.9 88 21 150/72 (98) 92 Nasal Cannula 2.0 01/25/18 13:58 87 16 95 Nasal Cannula 2.0 01/25/18 12:00 95 Nasal Cannula 2.0 01/25/18 11:44 36.9 84 22 152/74 (100) 94 Nasal Cannula 2.0 01/25/18 08:00 97 Nasal Cannula 2.0 01/25/18 07:39 85 16 99 Nasal Cannula 2.0 01/25/18 06:47 37.0 89 20 133/72 (92) 97 Nasal Cannula 2.0 01/25/18 04:13 36.6 89 20 127/62 (83) 97 Nasal Cannula 2.0 01/25/18 04:00 Nasal Cannula 2.0 01/25/18 02:02 88 16 94 Nasal Cannula 2.0 01/25/18 00:00 Nasal Cannula 2.0 01/24/18 23:41 36.9 94 20 146/79 (101) 95 Nasal Cannula 2.0 01/24/18 20:00 90 Room Air 01/24/18 19:48 37.2 86 20 145/61 (89) 94 Nasal Cannula 2.0 01/24/18 19:11 78 16 94 Nasal Cannula 2.0 Laboratory Results: Last 24 Hours Test 01/25/18 05:39 White Blood Count 5.29 K/uL Red Blood Count 2.45 M/uL Hemoglobin 8.8 g/dL Hematocrit 27.5 % Mean Corpuscular Volume 112.2 fL Mean Corpuscular Hemoglobin 35.9 pg Mean Corpuscular Hemoglobin Concent 32.0 g/dl RDW Standard Deviation 63.2 fL RDW Coefficient of Variation 15.5 % Platelet Count 158 K/uL Mean Platelet Volume 10.0 fL Activated Partial Thromboplast Time 52.4 SECONDS Partial Thromboplastin Ratio 2.0 Sodium Level 136 mmol/L Potassium Level 4.3 mmol/L Chloride Level 100 mmol/L Carbon Dioxide Level 29 mmol/L Anion Gap 7.0 mmol/L Blood Urea Nitrogen 75 mg/dl Creatinine 2.65 mg/dl Est Creatinine Clear Calc Drug Dose 14.1 ml/min Estimated GFR () 19.4 Estimated GFR (Non- 16.7 BUN/Creatinine Ratio 28.5 Random Glucose 101 mg/dl Calcium Level 8.9 mg/dl
--- NOTE | 2018-01-25 17:55 | Progress Note ---
Medicine Progress Note Date & Time of Visit: January 25, 2018 at 17:52. Subjective Seen resting in bed, family at the bedside Comfortable in good spirits Denies shortness of breath and chest pain Has occasional cough Otherwise feels okay, improving Objective Last 8 Hrs Date Time Temp Pulse Resp B/P (MAP) Pulse Ox O2 Delivery O2 Flow Rate FiO2 01/25/18 15:27 36.9 88 21 150/72 (98) 92 Nasal Cannula 2.0 01/25/18 13:58 87 16 95 Nasal Cannula 2.0 01/25/18 12:00 95 Nasal Cannula 2.0 01/25/18 11:44 36.9 84 22 152/74 (100) 94 Nasal Cannula 2.0 Physical Exam: General-oriented 3, not in distress, speaking in sentences, no effort, no accessory muscle use Eyes- anicteric Neck- no JVD Lungs decreased breath sounds right mid to base, no crackles or wheezing Heart-normal rate, regular rhythm; no murmur Abdomen- normal bowel sounds, soft, nontender, nondistended Extremities- no pretibial edema, no calf tenderness Neuro- alert, oriented x 3 no gross focal neurologic deficits Skin- warm & dry Laboratory Results: Last 24 Hours Test 01/25/18 05:39 White Blood Count 5.29 K/uL Red Blood Count 2.45 M/uL Hemoglobin 8.8 g/dL Hematocrit 27.5 % Mean Corpuscular Volume 112.2 fL Mean Corpuscular Hemoglobin 35.9 pg Mean Corpuscular Hemoglobin Concent 32.0 g/dl RDW Standard Deviation 63.2 fL RDW Coefficient of Variation 15.5 % Platelet Count 158 K/uL Mean Platelet Volume 10.0 fL Activated Partial Thromboplast Time 52.4 SECONDS Partial Thromboplastin Ratio 2.0 Sodium Level 136 mmol/L Potassium Level 4.3 mmol/L Chloride Level 100 mmol/L Carbon Dioxide Level 29 mmol/L Anion Gap 7.0 mmol/L Blood Urea Nitrogen 75 mg/dl Creatinine 2.65 mg/dl Est Creatinine Clear Calc Drug Dose 14.1 ml/min Estimated GFR () 19.4 Estimated GFR (Non- 16.7 BUN/Creatinine Ratio 28.5 Random Glucose 101 mg/dl Calcium Level 8.9 mg/dl Assessment & Plan Visit 77-year-old female with a history of diastolic CHF, status post mechanical aortic valve replacement, status post mitral valve replacement, Chronic respiratory failure on oxygen 2-3 L by nasal cannula, COPD, hypertension , CKD stage IV presenting with shortness of breath ACUTE ON CHRONIC DIASTOLIC CONGESTIVE HEART FAILURE Secondary to accidentally taking with reduced dose of her usual Lasix usually on Lasix 160 mg P.o. twice daily given Lasix IV 80 mg twice daily diuresed well -- now back to Lasix 160mg po BID Appears euvolemic Nephrology and cardiology consulted COPD EXACERBATION -- possible Acute Bronchitis -- started Solumedrol 40mg q8h--> transitioned to PO prednisone Nebs q4h Doxycyline 100mg BID Day 01/26 Ellipta continued RIGHT MIDDLE AND LOWER LOBE COLLAPSE, POSSIBLE RIGHT-SIDED PLEURAL EFFUSION Based on CT chest Pulmonary service consulted Plan for bronchoscopy tomorrow Coumadin held Hold heparin on the midnight of Thursday, January 25, 2018 in anticipation of bronchoscopy in the a.m. of January 26, 2018 ACUTE ON CHRONIC RESPIRATORY FAILURE SECONDARY TO CHRONIC OBSTRUCTIVE PULMONARY DISEASE AND CONGESTIVE HEART FAILURE. Management of CHF as noted above ACUTE KIDNEY INJURY ON CHRONIC KIDNEY DISEASE STAGE IV. Resolving Nephrology consulted, appreciate recommendations HYPERTENSION Continue hydralazine, Imdur, Lopressor. STATUS POST MECHANICAL MITRAL VALVE REPLACEMENT AND AORTIC VALVE REPLACEMENT INR 1.5 Goal INR is 2.5-3.5 Coumadin held , continue heparin Hold heparin on the midnight of Thursday, January 25, 2018 in anticipation of bronchoscopy in the a.m. of January 26, 2018 ATRIAL FIBRILLATION. Rate is under control on Lopressor On heparin drip Tobacco use. - smoking cessation counseling. Deep venous thrombosis prophylaxis On heparin drip Disposition PT OT ordered Current Inpatient Medications: Current Inpatient Medications Medications (Trade) Dose Ordered Sig/Shana Route Start Time Stop Time Status Last Admin Dose Admin Acetaminophen (Tylenol Tab) 650 mg Q4H PRN PO 01/19/18 20:15 02/18/18 20:14 Al Hydrox/Mg Hydrox/Simethicone (Maalox Max Susp) 15 ml Q4H PRN PO 01/19/18 20:15 02/18/18 20:14 Ondansetron HCl (Zofran Inj) 4 mg Q6H PRN IV 01/19/18 20:15 02/18/18 20:14 Nitroglycerin (Nitrostat Tab) 0.4 mg UD PRN SL 01/19/18 20:15 02/18/18 20:14 Polyethylene (Miralax Powder Packet) 17 gm DAILY PRN PO 01/19/18 20:15 02/18/18 20:14 01/25/18 08:55 17 GM Allopurinol (Zyloprim Tab) 100 mg QAM PO 01/20/18 09:00 02/19/18 08:59 01/25/18 08:43 100 MG Calcitriol (Rocaltrol Cap) 0.25 mcg MoTh@1400 PO 01/22/18 14:00 02/21/18 13:59 01/22/18 14:52 0.25 MCG Cyanocobalamin (Vitamin B-12 Tab) 1,000 mcg DAILY PO 01/20/18 09:00 02/19/18 08:59 01/25/18 08:47 1,000 MCG Folic Acid (Folvite Tab) 1 mg QAM PO 01/20/18 09:00 02/19/18 08:59 01/25/18 08:44 1 MG Gabapentin (Neurontin Cap) 100 mg HS PO 01/19/18 21:00 02/18/18 20:59 01/24/18 21:04 100 MG Guaifenesin (Organidin Nr Tab) 200 mg Q6 PRN PO 01/19/18 20:15 02/18/18 20:14 Hydralazine HCl (Apresoline Tab) 50 mg TID PO 01/19/18 21:00 02/18/18 20:59 01/25/18 14:28 50 MG Isosorbide Mononitrate (Imdur Ext Rel Tab) 60 mg QAM PO 01/20/18 09:00 02/19/18 08:59 01/25/18 08:43 60 MG Levothyroxine Sodium (Synthroid Tab) 25 mcg DAILYBB PO 01/20/18 06:00 02/19/18 05:59 01/25/18 06:02 25 MCG Metoprolol Tartrate (Lopressor Tab) 50 mg BID PO 01/19/18 22:00 02/18/18 21:59 01/25/18 08:45 50 MG Montelukast Sodium (Singulair Tab) 10 mg DAILY PO 01/20/18 09:00 02/19/18 08:59 01/25/18 08:43 10 MG Pantoprazole Sodium (Protonix Tab) 40 mg BID PO 01/19/18 22:00 02/18/18 21:59 01/25/18 08:46 40 MG Potassium Chloride (Klor-Con Tab) 20 meq BID PO 01/19/18 22:00 02/18/18 21:59 01/25/18 08:44 20 MEQ Ranitidine HCl (zANTac TAB) 300 mg HS PO 01/19/18 21:00 02/18/18 20:59 01/24/18 21:05 300 MG Albuterol (Ventolin Hfa Inhaler) 2 puffs Q4 PRN INH 01/20/18 10:30 02/19/18 10:29 Heparin Sodium/ Dextrose 500 ml @ 18 mls/hr Q24H IV 01/20/18 11:45 02/19/18 11:44 Future Hold 01/25/18 09:57 18 MLS/HR Furosemide (Lasix Tab) 160 mg BID17 PO 01/21/18 10:00 02/20/18 09:59 01/25/18 17:38 160 MG Ferrous Fumarate (Darío-Sequels Contr Rel Cap) 65 mg QAM PO 01/22/18 09:00 02/21/18 08:59 01/25/18 08:44 65 MG Levalbuterol (Xopenex 0.63 Mg/ 3 Ml Neb) 0.63 mg Q6R INH 01/21/18 15:00 02/20/18 14:59 01/25/18 13:57 0.63 MG Ipratropium [place] (Atrovent 0.02% 0.5MG/2.5ML Neb) 0.5 mg Q6R INH 01/21/18 15:00 02/20/18 14:59 01/25/18 13:58 0.5 MG Doxycycline Hyclate (Vibramycin Cap) 100 mg BID PO 01/21/18 21:00 01/28/18 20:59 01/25/18 08:43 100 MG Prednisone (PredniSONE TAB) 40 mg DAILY PO 01/23/18 09:00 02/22/18 08:59 01/25/18 08:46 40 MG Lactulose (Chronulac Syrup) 30 gm BID PRN PO 01/25/18 14:00 6/5/18 13:59 Bisacodyl (Dulcolax Supp) 10 mg DAILY PRN [place] 01/25/18 14:00 02/24/18 13:59
--- NOTE | 2018-01-25 21:28 | DIAGNOSTIC IMAGING REPORT ---
KUB HISTORY: Acute generalized abdominal pain r/o obstruction COMPARISON: None. FINDINGS: Gas-filled loops of small and large bowel are noted within the central abdomen with small bowel loops measuring up to 3.1 cm. Moderate stool volume of the rectosigmoid, descending colon and splenic flexure.. There is no organomegaly. Renal shadows are obscured by bowel gas. Indeterminate 5 mm round calcification of the right midabdomen at the level of L3. No pneumoperitoneum or pneumatosis. No fracture. Bilateral hip arthroplasties. Multiple round densities of the central pelvis suggest postsurgical changes. IMPRESSION: 1. Gas-filled loops of small and large bowel within the central abdomen with small bowel loops measuring up to 3.1 cm. Findings suggest ileus with developing low-grade small bowel obstruction thought to be less likely. 2. 5 mm round calcification of the right midabdomen may reflect a urolith. 3. Suggested constipation. Electronically signed by: Malachi Foster M.D. 01/25/2018 9:27 PM Dictated Date/Time: 01/25/2018 9:23 PM
[2018-01-25] MEDS: GABAPENTIN 100 MG CAP PO SCH (21:44)
[2018-01-25] MEDS: RANITIDINE HCL 150 MG TAB PO SCH (21:48)
[2018-01-26] VITALS (17 sets, daily range): BP systolic 122–154; BP diastolic 66–74; PULSE 71–86; TEMP 36.7–37; O2SAT 94–99
[2018-01-26] MEDS: LEVALBUTEROL 0.63MG/3 ML NEB INH SCH ×4 (01:39→19:40)
[2018-01-26] MEDS: IPRATROPIUM BROMIDE NEB SOLN 0.02% 2.5 ML VIAL INH SCH ×4 (01:39→19:39)
[2018-01-26] MEDS: LEVOTHYROXINE 25 MCG TAB PO SCH (06:00)
[2018-01-26 06:32] LABS: INR 1.3 (0.9-1.1)
[2018-01-26 06:55] LABS: CALCIUM 9.2 mg/dl (8.5-10.1); CREATININE 2.68 mg/dl (0.60-1.20); POTASSIUM 3.8 mmol/L (3.5-5.1)
--- NOTE | 2018-01-26 07:24 | Nephrology Progress Note ---
Nephrology Progress Note Date of Service: January 26, 2018. Subjective 77 yo female with ckd stage 4 with afib-rate controlled and copd who actively smokes whose creatinine has been stable during this admission. currently for bronch today. pt is a little nervous for the procedure. has a dry cough but breathing is stable. Objective Date Time Temp Pulse Resp B/P (MAP) Pulse Ox O2 Delivery O2 Flow Rate FiO2 01/26/18 07:07 37.0 78 16 136/73 (94) 97 Nasal Cannula 2.0 01/26/18 07:06 73 18 94 Nasal Cannula 2.0 01/26/18 04:00 Nasal Cannula 2.0 01/26/18 03:45 36.7 84 16 122/69 (86) 97 Nasal Cannula 2.0 01/26/18 01:39 71 18 95 Nasal Cannula 2.0 01/26/18 00:01 Nasal Cannula 2.0 01/25/18 23:24 36.7 83 17 121/62 (81) Nasal Cannula 2.0 01/25/18 20:00 Nasal Cannula 2.0 Humidified Oxygen 01/25/18 19:10 90 18 92 Nasal Cannula 2.0 01/25/18 18:56 36.8 89 18 128/55 (79) 94 Nasal Cannula 2.0 01/25/18 16:00 92 Nasal Cannula 2.0 Humidified Oxygen 01/25/18 15:27 36.9 88 21 150/72 (98) 92 Nasal Cannula 2.0 01/25/18 13:58 87 16 95 Nasal Cannula 2.0 01/25/18 12:00 95 Nasal Cannula 2.0 01/25/18 11:44 36.9 84 22 152/74 (100) 94 Nasal Cannula 2.0 01/25/18 08:00 97 Nasal Cannula 2.0 01/25/18 07:39 85 16 99 Nasal Cannula 2.0 Physical Exam: General-[id number] Eyes-no scleral icterus ENT-mmm Neck-supple Lungs-+rhonchi Heart-rate controlled Abdomen-bs+ s/nt/nd Extremities-mild edema Neuro-nonfocal Current Inpatient Medications Medications (Trade) Dose Ordered Sig/Shana Route Start Time Stop Time Status Last Admin Dose Admin Acetaminophen (Tylenol Tab) 650 mg Q4H PRN PO 01/19/18 20:15 02/18/18 20:14 Al Hydrox/Mg Hydrox/Simethicone (Maalox Max Susp) 15 ml Q4H PRN PO 01/19/18 20:15 02/18/18 20:14 Ondansetron HCl (Zofran Inj) 4 mg Q6H PRN IV 01/19/18 20:15 02/18/18 20:14 Nitroglycerin (Nitrostat Tab) 0.4 mg UD PRN SL 01/19/18 20:15 02/18/18 20:14 Polyethylene (Miralax Powder Packet) 17 gm DAILY PRN PO 01/19/18 20:15 02/18/18 20:14 01/25/18 08:55 17 GM Allopurinol (Zyloprim Tab) 100 mg QAM PO 01/20/18 09:00 02/19/18 08:59 01/25/18 08:43 100 MG Calcitriol (Rocaltrol Cap) 0.25 mcg MoTh@1400 PO 01/22/18 14:00 02/21/18 13:59 01/22/18 14:52 0.25 MCG Cyanocobalamin (Vitamin B-12 Tab) 1,000 mcg DAILY PO 01/20/18 09:00 02/19/18 08:59 01/25/18 08:47 1,000 MCG Folic Acid (Folvite Tab) 1 mg QAM PO 01/20/18 09:00 02/19/18 08:59 01/25/18 08:44 1 MG Gabapentin (Neurontin Cap) 100 mg HS PO 01/19/18 21:00 02/18/18 20:59 01/25/18 21:44 100 MG Guaifenesin (Organidin Nr Tab) 200 mg Q6 PRN PO 01/19/18 20:15 02/18/18 20:14 Hydralazine HCl (Apresoline Tab) 50 mg TID PO 01/19/18 21:00 02/18/18 20:59 01/25/18 21:45 50 MG Isosorbide Mononitrate (Imdur Ext Rel Tab) 60 mg QAM PO 01/20/18 09:00 02/19/18 08:59 01/25/18 08:43 60 MG Levothyroxine Sodium (Synthroid Tab) 25 mcg DAILYBB PO 01/20/18 06:00 02/19/18 05:59 01/25/18 06:02 25 MCG Metoprolol Tartrate (Lopressor Tab) 50 mg BID PO 01/19/18 22:00 02/18/18 21:59 01/25/18 21:45 50 MG Montelukast Sodium (Singulair Tab) 10 mg DAILY PO 01/20/18 09:00 02/19/18 08:59 01/25/18 08:43 10 MG Pantoprazole Sodium (Protonix Tab) 40 mg BID PO 01/19/18 22:00 02/18/18 21:59 01/25/18 21:46 40 MG Potassium Chloride (Klor-Con Tab) 20 meq BID PO 01/19/18 22:00 02/18/18 21:59 01/25/18 21:46 20 MEQ Ranitidine HCl (zANTac TAB) 300 mg HS PO 01/19/18 21:00 02/18/18 20:59 01/25/18 21:48 300 MG Albuterol (Ventolin Hfa Inhaler) 2 puffs Q4 PRN INH 01/20/18 10:30 02/19/18 10:29 Heparin Sodium/ Dextrose 500 ml @ 18 mls/hr Q24H IV 01/20/18 11:45 02/19/18 11:44 Future Hold 01/25/18 09:57 18 MLS/HR Furosemide (Lasix Tab) 160 mg BID17 PO 01/21/18 10:00 02/20/18 09:59 01/25/18 17:38 160 MG Ferrous Fumarate (Darío-Sequels Contr Rel Cap) 65 mg QAM PO 01/22/18 09:00 02/21/18 08:59 01/25/18 08:44 65 MG Levalbuterol (Xopenex 0.63 Mg/ 3 Ml Neb) 0.63 mg Q6R INH 01/21/18 15:00 02/20/18 14:59 01/26/18 07:06 0.63 MG Ipratropium [place] (Atrovent 0.02% 0.5MG/2.5ML Neb) 0.5 mg Q6R INH 01/21/18 15:00 02/20/18 14:59 01/26/18 07:06 0.5 MG Doxycycline Hyclate (Vibramycin Cap) 100 mg BID PO 01/21/18 21:00 01/28/18 20:59 01/25/18 21:47 100 MG Prednisone (PredniSONE TAB) 40 mg DAILY PO 01/23/18 09:00 02/22/18 08:59 01/25/18 08:46 40 MG Lactulose (Chronulac Syrup) 30 gm BID PRN PO 01/25/18 14:00 02/24/18 13:59 Bisacodyl (Dulcolax Supp) 10 mg DAILY PRN [place] 01/25/18 14:00 02/24/18 13:59 01/25/18 21:42 10 MG Last 24 Hours Test 01/26/18 06:09 Prothrombin Time 13.5 SECONDS Prothromb Time International Ratio 1.3 Activated Partial Thromboplast Time 28.0 SECONDS Partial Thromboplastin Ratio 1.1 Sodium Level 139 mmol/L Potassium Level 3.8 mmol/L Chloride Level 99 mmol/L Carbon Dioxide Level 33 mmol/L Anion Gap 7.0 mmol/L Blood Urea Nitrogen 78 mg/dl Creatinine 2.68 mg/dl Est Creatinine Clear Calc Drug Dose 13.9 ml/min Estimated GFR () 19.1 Estimated GFR (Non- 16.5 BUN/Creatinine Ratio 29.2 Random Glucose 78 mg/dl Calcium Level 9.2 mg/dl Assessment & Plan ckd stage 4-despite the copd exacerbation who initially required iv diuretics and now back to oral dose of diuretics and currently on oral prednisone, creatinine has remained stable through the hospitilization. greatly appreciate pulmonary, cardiology and hospitalist help in the management of this complicated patient. iron deficiency anemia--hg levels have been slowly trending down. iron sat was low at 13%. did recieve two doses of 200mg of venofer on the and . to recheck iron sat and ferritin tomorrow. may benefit from procrit.
--- NOTE | 2018-01-26 07:57 | Pre Sedation Assessment ---
Pre Sedation Assessment General Date of Sedation: January 26, 2018. Vital Signs Past 12 Hours Date Time Temp Pulse Resp B/P (MAP) Pulse Ox O2 Delivery O2 Flow Rate FiO2 01/26/18 07:07 37.0 78 16 136/73 (94) 97 Nasal Cannula 2.0 01/26/18 07:06 73 18 94 Nasal Cannula 2.0 01/26/18 04:00 Nasal Cannula 2.0 01/26/18 03:45 36.7 84 16 122/69 (86) 97 Nasal Cannula 2.0 01/26/18 01:39 71 18 95 Nasal Cannula 2.0 01/26/18 00:01 Nasal Cannula 2.0 01/25/18 23:24 36.7 83 17 121/62 (81) Nasal Cannula 2.0 01/25/18 20:00 Nasal Cannula 2.0 Humidified Oxygen Review Cardiovascular: regular rate, rhythm, + systolic murmur Lungs: + rhonchi Pre-Sedation Airway Assessment Smoking Status: Current Every Day Smoker Hx of Sleep Apnea: No Hx of difficult intubation: No Short Thick Neck: No Thyro-mental Distance: > 3 Finger Breadths Oral Cavity: WNL Mallampati Classification: Class II ASA Classification: Class II NPO Status Date of Last Intake of Fluids: January 25, 2018 Time of Last Intake of Fluids: 2000 Date of Last Intake of Solids: January 25, 2018 Time of Last Intake of Solids: 1700 Procedure Planning Contraindications for Sedation: None Current Medications Reviewed: Yes Notes The planned sedation has been discussed with the patient. Informed Consent was obtained. I have identified the patient, determined the appropriateness of sedation and have assessed the patient immediately prior to the procedure. All medicine(s) and interventions are by my order.
--- NOTE | 2018-01-26 08:37 | Bronchoscopy Procedure Note ---
Bronchoscopy Procedure Note Procedure: Bronchoscopy, conscious sedation, bronchial lavage Consent: Obtained through the patient placed into the chart Pre-procedural diagnosis: Atelectasis left lower lobe Post-procedural diagnosis: Diffuse mucous plugs with bronchiectatic changes bilateral lower lobes Start time: 812 End time: 827 Total time: 15 minutes Analgesia: 2% liquid lidocaine: Via nebulizer 4% gel lidocaine: Via right naris 2% liquid lidocaine: Via bronchoscopy Afrin nasal spray 1 puff right nostril Sedation: Versed IV: 2mg Fentanyl IV: 50g Procedure: The [employer] video bronchoscope was used for this procedure and passed down through the right naris Right naris: Some notable spots of previous epistaxis noted at the entrance to the right naris Posterior naris/posterior oropharynx: Anatomically within normal limits Glottis: Anatomically within normal limits, there were diffuse secretions around the glottic region/supraglottic region Vocal cords: Proper abduction and abduction, anatomically within normal limits Subglottis/trachea/Mattie: Anatomically within normal limits, diffuse mucus secretions approximately fci down the trachea Bronchoscope was also passed through the oropharynx: Within normal limits, switch to the oropharynx as the patient did have some signs of bleeding in the anterior naris prior to the procedure Right bronchial tree: Right mainstem bronchus: Diffuse mucus secretions but also notable erythema Right upper lobe: Diffuse mucus secretions but also notable erythema Bronchus intermedius: Mucus secretions as well as erythema Right middle lobe: Mucus secretions with notable erythema Right lower lobe: Notable hypervascular/erythematous changes with mucus secretions obstructing the right lower lobe Findings: Diffuse mucus secretions throughout especially in the lower lobe, hypervascular changes Left bronchial tree: Left mainstem bronchus: Anatomically within normal limits, erythema with mucus secretions Left upper lobe: Anatomically within normal limits, erythema with mucus secretions Lingula: Anatomically within normal limits, erythema with mucus secretions Left lower lobe: Hypervascular changes with erythema and mucus secretions obstructing the left lower lobe Findings: Erythema with hypervascular changes and diffuse mucus secretions Bronchial alveolar lavage: Left lower lobe EBL: 1 cc Complications: None Follow-up: ASU
[2018-01-26] MEDS ORDERED: LIDOCAINE HCL 2% LOCAL 50ML VIAL INSTIL ONE (08:42)
[2018-01-26] MEDS ORDERED: LIDOCAINE 4% INH SOLN 4 ML BTL TOP ONE (08:42)
[2018-01-26] MEDS ORDERED: FENTANYL CITRATE INJ 50 MCG/1 ML 2 ML VIAL IV ONE (08:42)
[2018-01-26] MEDS ORDERED: LIDOCAINE VISCOUS 2% 100ML TOP ONE (08:42)
[2018-01-26] MEDS ORDERED: MIDAZOLAM HCL 5 MG/ML 1 ML VIAL IV ONE (08:42)
--- NOTE | 2018-01-26 08:42 | Post Sedation Assessment ---
Post Sedation Assessment General Date of Sedation January 26, 2018. Vital Signs: Vital Signs Past 12 Hours Date Time Temp Pulse Resp B/P (MAP) Pulse Ox O2 Delivery O2 Flow Rate FiO2 01/26/18 08:38 78 21 150/81 98 Nasal Cannula 4 01/26/18 08:33 85 21 142/80 96 Oxymask 4 01/26/18 08:28 87 18 135/75 97 Oxymask 15 01/26/18 08:23 82 22 148/71 92 Oxymask 15 01/26/18 08:18 79 12 139/75 92 Oxymask 15 01/26/18 08:13 87 18 151/82 99 Oxymask 6 01/26/18 08:09 86 24 150/74 100 Oxymask 6 01/26/18 07:07 37.0 78 16 136/73 (94) 97 Nasal Cannula 2.0 01/26/18 07:06 73 18 94 Nasal Cannula 2.0 01/26/18 04:00 Nasal Cannula 2.0 01/26/18 03:45 36.7 84 16 122/69 (86) 97 Nasal Cannula 2.0 01/26/18 01:39 71 18 95 Nasal Cannula 2.0 01/26/18 00:01 Nasal Cannula 2.0 01/25/18 23:24 36.7 83 17 121/62 (81) Nasal Cannula 2.0 Post Procedure Recovery Score Activity: (2) Moves 4 extremities * Respiration: (2) Deep breath/cough Circulation: (2) +/-20% PreAnes Value Consciousness: (1) Arouseable (by name) Oxygen Saturation: (1) O2 needed for >90% Post Anesthesia Score: 8 Discharge Sedation Level of Care: Fast Track Phase II Post Sedation Plan On clinical assessment, the patient appears to have tolerated the sedation without complications. Patient is recovering as anticipated. Patient will continue to be monitored by nursing and may be discharged when sedation discharge criteria are met per below protocol. Upon Completions of procedure and additional 15 minutes continue every 5 minute vital signs and the P.A.R. score; then discharge to a Phase I or Fast Track to Phase II per the following guidelines: * Discharge Patient to appropriate Phase II area if PAR is 8 or greater or return to pre- procedure baseline. The post - procedure orders will be as directed. * If PAR score is less than 8 or not return to pre-procedure baseline then patient will follow Phase I monitoring till PAR is reached for Phase II. The Phase I may be done in procedure room or may call to secure a Phase I area. * If naloxone or flumazenil are used for reversal, hold in Phase I for an additional 60 -120 minutes before discharge to Phase II. Please call the Sedation Physician to re-evaluate and complete post-note for discharge to Phase II area. Do NOT discharge from procedure sedation or Phase 1 until post- sedation evaluation note is complete by procedure /sedation MD Sedation Discharge Instructions to be given to the patient at discharge to home.
[2018-01-26] MEDS ORDERED: OXYMETAZOLINE HCL 0.05% NA SPR 15 ML BTL ONE (08:43)
--- NOTE | 2018-01-26 10:00 | Cardiology Follow-Up ---
Subjective General Date of Service: January 26, 2018. Chief Complaint: CHF Pt evaluation today including: conversation w/ patient, physical exam, chart review, lab review, review of studies, review of inpatient medication list History of Present Illness Patient evaluated post bronchoscopy. Tolerated procedure without incident. Video swallow planned. Notes ongoing SOB but improved from admission. No chest pain. No dizziness. No orthopnea. Edema improved. Allergies Coded Allergies: Amlodipine (Verified Allergy, Unknown, edema per medical record, 12/12/17) Social History Smoking Status: Current Every Day Smoker Hx Tobacco Use In Past Year?: Yes Hx Alcohol Use - Type And Amou: Yes (1 glass of wine daily) Hx Substance Use - Type And Am: No Problem List Medical Problems: (1) CHF (congestive heart failure) Status: Acute (2) CHF (congestive heart failure) Status: Acute (3) Hypoxia Status: Acute (4) Pleural effusion Status: Acute Review of Systems Respiratory: + cough, + shortness of breath, No hemoptysis Cardiac: No chest pain, No orthopnea, No PND, No edema, No palpitations Physical Exam Vital Signs Last Vital Signs Documentation Date Time Temp Pulse Resp B/P (MAP) Pulse Ox O2 Delivery O2 Flow Rate FiO2 01/26/18 09:34 83 18 149/68 (95) 98 Nasal Cannula 2.0 01/26/18 07:07 37.0 01/21/18 04:00 40 Physical Exam Constitutional: Level of Distress: NAD, chronically ill Psychiatric: Mental Status: active & alert Orientation: to time, to place, to person Memory: recent memory normal, remote memory normal Head: normocephalic, atraumatic Eyes: Pupils: PERRLA Neck: pertinent finding (Normal JVP) Lungs: Respiratory effort: no dyspnea Auscultation: deminished air movement, decreased breath sounds, expiratory wheezing Cardiovascular: Heart Auscultation: II/ REGINA, irregular rate rhythm, pertinent finding ( crisp mechanical valve sounds) Peripheral Pulses: Radial Pulse: normal on the left, normal on the right Dorsalis Pedis Pulse: decreased on the left, decreased on the right Abdomen: Bowel Sounds: normal Inspection & Palpation: soft, non-distended, no masses Extremities: no cyanosis, no edema, no clubbing Neurologic: Cranial Nerves: grossly intact Assessment and Plan Assessment and Plan Complex 77-year-old female 1. acute decompensated diastolic heart failure secondary to noncompliance with her standard diuretic regimen -symptoms improved with IV diuresis. -Resumed oral home diuretics, appears euvolemic 2. COPD s/p bronch with thick mucus plugs. Video swallow ordered 3. history of 4. MVR and AVR - 27 mm Rehman Medtronic mechanical mitral valve valve, 23 mm Carbomedic aortic valve replacement. resume heparin to coumadin. 5. Chronic atrial fibrillations, rates controlled. Continue beat ida PLAN: Video swallow ordered. ? Unsure of timing. Need to resume heparin in the meantime. Once invasive testing is complete, heparin to Coumadin for INR 2.5-3.5 required. Discussed with [facility] Hospitalist. Continue current diuretics, beta ida, and other cardiac medications. Patient to keep f/u as scheduled in [facility] in several weeks. Case to be discussed with Dr. Rajan. Cardiology attending: Pt seen and examined, agree with findings and assessment as per Charlene Woodward. Bronch performed and patient states that she is already breathing better. Will restart heparin now and coumadin later today. Laboratory Results Last 24 Hours Test 01/26/18 06:09 Prothrombin Time 13.5 SECONDS Prothromb Time International Ratio 1.3 Activated Partial Thromboplast Time 28.0 SECONDS Partial Thromboplastin Ratio 1.1 Sodium Level 139 mmol/L Potassium Level 3.8 mmol/L Chloride Level 99 mmol/L Carbon Dioxide Level 33 mmol/L Anion Gap 7.0 mmol/L Blood Urea Nitrogen 78 mg/dl Creatinine 2.68 mg/dl Est Creatinine Clear Calc Drug Dose 13.9 ml/min Estimated GFR () 19.1 Estimated GFR (Non- 16.5 BUN/Creatinine Ratio 29.2 Random Glucose 78 mg/dl Calcium Level 9.2 mg/dl
[2018-01-26] MEDS ORDERED: HEPARIN IV LOW DOSE NO BOLUS SCH (10:09)
[2018-01-26] MEDS ORDERED: NURSING VERBAL MED ORDER ONE (10:45)
[2018-01-26] MEDS: UMECLIDINIUM-VILANTEROL (ANORO) INH SCH (11:08)
[2018-01-26] MEDS: PANTOprazole SOD 40 MG TAB PO SCH ×2 (11:09→21:21)
[2018-01-26] MEDS: CYANOCOBALAMIN 500 MCG TAB (VIT B-12) PO SCH (11:09)
[2018-01-26] MEDS: FERROUS FUMARATE CONTR REL CAP 65 MG CAPCR PO SCH (11:10)
[2018-01-26] MEDS: FUROSEMIDE 40 MG TAB PO SCH ×2 (11:10→16:40)
[2018-01-26] MEDS: DOXYCYCLINE HYCLATE 100 MG CAP PO SCH ×2 (11:10→21:22)
[2018-01-26] MEDS: POTASSIUM CHLORIDE 20 MEQ TABCR PO SCH ×2 (11:10→21:20)
[2018-01-26] MEDS: METOPROLOL TARTRATE 50 MG TAB PO SCH ×2 (11:10→21:23)
[2018-01-26] MEDS: ALLOPURINOL 100 MG TAB PO SCH (11:10)
[2018-01-26] MEDS: ISOSORBIDE MONONITRATE 60 MG TABCR PO SCH (11:11)
[2018-01-26] MEDS: MONTELUKAST SOD 10 MG TAB PO SCH (11:11)
[2018-01-26] MEDS: HEPARIN 25,000 UNIT/500ML D5W 500 ML IV SCH ×2 (11:14→18:55)
[2018-01-26] MEDS: CALCITRIOL 0.25 MCG CAP PO SCH (14:48)
--- NOTE | 2018-01-26 16:21 | DIAGNOSTIC IMAGING REPORT ---
VIDEO SWALLOW CLINICAL HISTORY: 77 years-old Female with Possible aspiration. Acute cough with concern for aspiration TECHNIQUE: Video fluoroscopic evaluation of swallowing was performed in the AP and lateral projections by the speech pathology staff. The patient is fed nectar-thick and thin liquid barium, a barium coated wafer, and barium pudding. FLUOROSCOPY TIME: 1.7 minutes. COMPARISON STUDY: CT chest 01/22/2018 FINDINGS: There is normal hyoid excursion and epiglottic deflection. No significant penetration or aspiration identified. Swallowing function is within normal limits. IMPRESSION: 1. No aspiration identified. 2. Please see the speech pathologist report for detailed findings and recommendations. Electronically signed by: Malachi Foster M.D. 01/26/2018 4:19 PM Dictated Date/Time: 01/26/2018 4:18 PM
[2018-01-26] MEDS: WARFARIN SOD 5 MG TAB PO SCH (16:41)
[2018-01-26] MEDS ORDERED: HEPARIN IV BOLUS 4,000 UNIT in SYRINGE 0 ML IV ONE (18:45)
--- NOTE | 2018-01-26 19:48 | Progress Note ---
Medicine Progress Note Date & Time of Visit: January 26, 2018 at 19:39. Subjective seen resting in bed, comfortable s/p Bronchoscopy denies dyspnea, chest pain no other symptoms Objective Last 8 Hrs Date Time Temp Pulse Resp B/P (MAP) Pulse Ox O2 Delivery O2 Flow Rate FiO2 01/26/18 16:00 95 Nasal Cannula 2.0 Humidified Oxygen 01/26/18 15:39 36.7 83 22 136/66 (89) 95 Nasal Cannula 2.0 01/26/18 14:13 71 18 96 Nasal Cannula 2.0 01/26/18 13:05 Oxymask 01/26/18 12:00 Nasal Cannula 2.0 Physical Exam: General-oriented 3, not in distress, speaking in sentences, no effort, no accessory muscle use Eyes- anicteric Neck- no JVD Lungs- mild rhonchi at the bases, no wheezing, improved breath sounds right base Heart-normal rate, regular rhythm; no murmur Abdomen- normal bowel sounds, soft, nontender, nondistended Extremities- no pretibial edema, no calf tenderness Neuro- alert, oriented x 3 no gross focal neurologic deficits Skin- warm & dry Laboratory Results: Last 24 Hours Test 01/26/18 06:09 01/26/18 17:09 Prothrombin Time 13.5 SECONDS Prothromb Time International Ratio 1.3 Activated Partial Thromboplast Time 28.0 SECONDS 33.0 SECONDS Partial Thromboplastin Ratio 1.1 1.3 Sodium Level 139 mmol/L Potassium Level 3.8 mmol/L Chloride Level 99 mmol/L Carbon Dioxide Level 33 mmol/L Anion Gap 7.0 mmol/L Blood Urea Nitrogen 78 mg/dl Creatinine 2.68 mg/dl Est Creatinine Clear Calc Drug Dose 13.9 ml/min Estimated GFR () 19.1 Estimated GFR (Non- 16.5 BUN/Creatinine Ratio 29.2 Random Glucose 78 mg/dl Calcium Level 9.2 mg/dl Date/Time Source Procedure Growth Status 01/26/18 08:30 Bronchial Washings Left Lower Lobe Fungal Smear Pending Received 01/26/18 08:30 Bronchial Washings Left Lower Lobe Fungal Culture Pending Received 01/26/18 08:30 Bronchial Washings Left Lower Lobe Acid Fast Stain Pending Received 01/26/18 08:30 Bronchial Washings Left Lower Lobe Mycobacterial Culture Pending Received 01/26/18 08:30 Bronchial Washings Left Lower Lobe Gram Stain Pending Received 01/26/18 08:30 Bronchial Washings Left Lower Lobe Bronchoalveolar Lavage Culture Pending Received Assessment & Plan Visit 77-year-old female with a history of diastolic CHF, status post mechanical aortic valve replacement, status post mitral valve replacement, Chronic respiratory failure on oxygen 2-3 L by nasal cannula, COPD, hypertension , CKD stage IV presenting with shortness of breath ACUTE ON CHRONIC DIASTOLIC CONGESTIVE HEART FAILURE Secondary to accidentally taking with reduced dose of her usual Lasix usually on Lasix 160 mg P.o. twice daily given Lasix IV 80 mg twice daily --> diuresed well -- now back to Lasix 160mg po BID euvolemic Nephrology and cardiology consulted COPD EXACERBATION -- possible Acute Bronchitis --Required increased oxygen supplement requirement up to 4 L by nasal cannula Usually on 2 L -- started Solumedrol 40mg q8h--> transitioned to PO prednisone Nebs q4h Doxycyline 100mg BID Day 02/26 Ellipta continued --Improving overall back to 2 L RIGHT MIDDLE AND LOWER LOBE COLLAPSE, POSSIBLE RIGHT-SIDED PLEURAL EFFUSION Based on CT chest Pulmonary service consulted --Status post bronchoscopy January 26, 2018 Lavage performed --Video swallow eval ordered: No aspiration --Appreciate pulmonary service recommendations Coumadin held and Coumadin bridge held for bronchoscopy January 26, 2018: Coumadin and heparin bridge resumed Target INR 2.5-3.5 for mechanical valves Creatinine clearance below 30 Lovenox bridge not recommended Will need to stay until INR therapeutic Follows with Coumadin clinic ACUTE ON CHRONIC RESPIRATORY FAILURE SECONDARY TO CHRONIC OBSTRUCTIVE PULMONARY DISEASE AND CONGESTIVE HEART FAILURE. Management of CHF as noted above ACUTE KIDNEY INJURY ON CHRONIC KIDNEY DISEASE STAGE IV. Resolving Nephrology consulted, appreciate recommendations HYPERTENSION Continue hydralazine, Imdur, Lopressor. STATUS POST MECHANICAL MITRAL VALVE REPLACEMENT AND AORTIC VALVE REPLACEMENT INR 1.5 Goal INR is 2.5-3.5 Management noted above ATRIAL FIBRILLATION. Rate is under control on Lopressor On heparin bridge plus Coumadin Tobacco use. - smoking cessation counseling. Deep venous thrombosis prophylaxis On heparin drip Disposition PT OT ordered Lives at home with Already on 2 L by nasal cannula at home Anticipate discharge to home with home health services when cleared by pulmonary and cardiology, INR therapeutic between 2.5-3.5 Current Inpatient Medications: Current Inpatient Medications Medications (Trade) Dose Ordered Sig/Shana Route Start Time Stop Time Status Last Admin Dose Admin Acetaminophen (Tylenol Tab) 650 mg Q4H PRN PO 01/19/18 20:15 02/18/18 20:14 Al Hydrox/Mg Hydrox/Simethicone (Maalox Max Susp) 15 ml Q4H PRN PO 01/19/18 20:15 02/18/18 20:14 Ondansetron HCl (Zofran Inj) 4 mg Q6H PRN IV 01/19/18 20:15 02/18/18 20:14 Nitroglycerin (Nitrostat Tab) 0.4 mg UD PRN SL 01/19/18 20:15 02/18/18 20:14 Polyethylene (Miralax Powder Packet) 17 gm DAILY PRN PO 01/19/18 20:15 02/18/18 20:14 01/25/18 08:55 17 GM Allopurinol (Zyloprim Tab) 100 mg QAM PO 01/20/18 09:00 02/19/18 08:59 01/26/18 11:10 100 MG Calcitriol (Rocaltrol Cap) 0.25 mcg MoTh@1400 PO 01/22/18 14:00 02/21/18 13:59 01/26/18 14:48 0.25 MCG Cyanocobalamin (Vitamin B-12 Tab) 1,000 mcg DAILY PO 01/20/18 09:00 02/19/18 08:59 01/26/18 11:09 1,000 MCG Folic Acid (Folvite Tab) 1 mg QAM PO 01/20/18 09:00 02/19/18 08:59 01/26/18 11:09 1 MG Gabapentin (Neurontin Cap) 100 mg HS PO 01/19/18 21:00 02/18/18 20:59 01/25/18 21:44 100 MG Guaifenesin (Organidin Nr Tab) 200 mg Q6 PRN PO 01/19/18 20:15 02/18/18 20:14 Hydralazine HCl (Apresoline Tab) 50 mg TID PO 01/19/18 21:00 02/18/18 20:59 01/26/18 14:48 50 MG Isosorbide Mononitrate (Imdur Ext Rel Tab) 60 mg QAM PO 01/20/18 09:00 02/19/18 08:59 01/26/18 11:11 60 MG Levothyroxine Sodium (Synthroid Tab) 25 mcg DAILYBB PO 01/20/18 06:00 02/19/18 05:59 01/25/18 06:02 25 MCG Metoprolol Tartrate (Lopressor Tab) 50 mg BID PO 01/19/18 22:00 02/18/18 21:59 01/26/18 11:10 50 MG Montelukast Sodium (Singulair Tab) 10 mg DAILY PO 01/20/18 09:00 02/19/18 08:59 01/26/18 11:11 10 MG Pantoprazole Sodium (Protonix Tab) 40 mg BID PO 01/19/18 22:00 02/18/18 21:59 01/26/18 11:09 40 MG Potassium Chloride (Klor-Con Tab) 20 meq BID PO 01/19/18 22:00 02/18/18 21:59 01/26/18 11:10 20 MEQ Ranitidine HCl (zANTac TAB) 300 mg HS PO 01/19/18 21:00 02/18/18 20:59 01/25/18 21:48 300 MG Albuterol (Ventolin Hfa Inhaler) 2 puffs Q4 PRN INH 01/20/18 10:30 02/19/18 10:29 Furosemide (Lasix Tab) 160 mg BID17 PO 01/21/18 10:00 02/20/18 09:59 01/26/18 16:40 160 MG Ferrous Fumarate (Darío-Sequels Contr Rel Cap) 65 mg QAM PO 01/22/18 09:00 02/21/18 08:59 01/26/18 11:10 65 MG Levalbuterol (Xopenex 0.63 Mg/ 3 Ml Neb) 0.63 mg Q6R INH 01/21/18 15:00 02/20/18 14:59 01/26/18 14:12 0.63 MG Ipratropium [place] (Atrovent 0.02% 0.5MG/2.5ML Neb) 0.5 mg Q6R INH 01/21/18 15:00 02/20/18 14:59 01/26/18 14:12 0.5 MG Doxycycline Hyclate (Vibramycin Cap) 100 mg BID PO 01/21/18 21:00 01/28/18 20:59 01/26/18 11:10 100 MG Prednisone (PredniSONE TAB) 40 mg DAILY PO 01/23/18 09:00 02/22/18 08:59 01/26/18 11:09 40 MG Lactulose (Chronulac Syrup) 30 gm BID PRN PO 01/25/18 14:00 02/24/18 13:59 Bisacodyl (Dulcolax Supp) 10 mg DAILY PRN NV 01/25/18 14:00 02/24/18 13:59 01/25/18 21:42 10 MG Warfarin Sodium (Coumadin Tab) 5 mg DAILY@16 PO 01/26/18 16:00 02/25/18 15:59 01/26/18 16:41 5 MG Heparin Sodium/ Dextrose 500 ml @ 14 mls/hr Q24H IV 01/26/18 11:00 02/25/18 10:59 01/26/18 18:55 14 MLS/HR
[2018-01-26] MEDS: GABAPENTIN 100 MG CAP PO SCH (21:20)
[2018-01-26] MEDS: RANITIDINE HCL 150 MG TAB PO SCH (21:22)
[2018-01-27] VITALS (13 sets, daily range): BP systolic 113–154; BP diastolic 48–69; PULSE 76–118; TEMP 36.5–37.1; O2SAT 90–99
[2018-01-27 01:31] LABS: PTT PATIENT 39.7 SECONDS (21.0-31.0)
[2018-01-27] MEDS ORDERED: HEPARIN IV BOLUS 4,000 UNIT in SYRINGE 0 ML IV ONE (02:00)
[2018-01-27] MEDS: HEPARIN 25,000 UNIT/500ML D5W 500 ML IV SCH (02:03)
[2018-01-27] MEDS: IPRATROPIUM BROMIDE NEB SOLN 0.02% 2.5 ML VIAL INH SCH ×4 (02:09→18:56)
[2018-01-27] MEDS: LEVALBUTEROL 0.63MG/3 ML NEB INH SCH ×4 (02:09→18:56)
[2018-01-27] MEDS: LEVOTHYROXINE 25 MCG TAB PO SCH (06:18)
[2018-01-27 07:01] LABS: HEMATOCRIT 28.3 % (37-47); HEMOGLOBIN 9.2 g/dL (12.0-16.0); MEAN CORPUSCULAR HEMOGLOBIN 36.1 pg (25-34); MEAN CORPUSCULAR HGB CONC 32.5 g/dl (32-36); MEAN PLATELET VOLUME 10.5 fL (7.4-10.4); NUCLEATED RED BLOOD CELL ABS 0.04 K/uL (0-0); PLATELET COUNT 183 K/uL (130-400); RED CELL DISTRIBUTION WIDTH CV 15.5 % (11.5-14.5); RED CELL DISTRIBUTION WIDTH SD 61.6 fL (36.4-46.3); WHITE BLOOD COUNT 7.73 K/uL (4.8-10.8)
[2018-01-27 07:18] LABS: INR 1.3 (0.9-1.1)
[2018-01-27 07:20] LABS: PTT PATIENT 63.9 SECONDS (21.0-31.0)
[2018-01-27 07:31] LABS: CALCIUM 9.4 mg/dl (8.5-10.1); CREATININE 2.61 mg/dl (0.60-1.20); POTASSIUM 4.1 mmol/L (3.5-5.1)
[2018-01-27] MEDS: UMECLIDINIUM-VILANTEROL (ANORO) INH SCH (07:37)
[2018-01-27] MEDS: CYANOCOBALAMIN 500 MCG TAB (VIT B-12) PO SCH (07:38)
[2018-01-27] MEDS: FUROSEMIDE 40 MG TAB PO SCH ×2 (07:39→16:09)
[2018-01-27] MEDS: FERROUS FUMARATE CONTR REL CAP 65 MG CAPCR PO SCH (07:39)
[2018-01-27] MEDS: POTASSIUM CHLORIDE 20 MEQ TABCR PO SCH ×2 (07:39→20:01)
[2018-01-27] MEDS: DOXYCYCLINE HYCLATE 100 MG CAP PO SCH ×2 (07:40→19:59)
[2018-01-27] MEDS: MONTELUKAST SOD 10 MG TAB PO SCH (07:40)
[2018-01-27] MEDS: ISOSORBIDE MONONITRATE 60 MG TABCR PO SCH (07:40)
[2018-01-27] MEDS: PANTOprazole SOD 40 MG TAB PO SCH ×2 (07:41→20:02)
[2018-01-27] MEDS: ALLOPURINOL 100 MG TAB PO SCH (07:41)
[2018-01-27] MEDS: METOPROLOL TARTRATE 50 MG TAB PO SCH ×2 (08:16→20:00)
[2018-01-27 08:22] LABS: PTT PATIENT 52.7 SECONDS (21.0-31.0)
[2018-01-27] MEDS ORDERED: WARFARIN SOD 5 MG TAB PO ONE (11:16)
--- NOTE | 2018-01-27 11:38 | Progress Note ---
Internal Med Progress Note Date of Service: January 27, 2018. Provider Documentation: SUBJECTIVE: Seen and examined at bedside Feels well today Denies Chest pain, SOB, dizziness No complaints States that she is concerned about her who has Alzheimer's whom she takes care at home On Heparin ggt Had bronchoscopy yesterday OBJECTIVE: Vital Signs-as noted below Physical Exam: General Appearance:Moderately built and nourished, no apparent distress Head: normocephalic, Atraumatic Eyes: normal inspection, EOMI, PERRL Neck: supple, Trachea midline Respiratory/Chest: Decreased breath sounds, CTA Cardiovascular: S1, S2, No murmur Abdomen/GI:Soft, Non tender, Bowel sounds present Extremities/Musculoskelatal:normal inspection, no edema Neurologic/Psych:AAOX3, grossly no focal neurological deficits Skin: normal color, warm Lab data as noted below. ASSESSMENT & PLAN: Patient is a 77 yr female with PMH of diastolic CHF, S/P mechanical aortic valve replacement, S/P mitral valve replacement, Chronic respiratory failure on oxygen 2-3 L by nasal cannula, COPD, hypertension, CKD IV presented with shortness of breath Acute on chronic diastolic CHF Secondary to accidentally taking reduced dose of her usual Lasix usually on Lasix 160 mg PO BID S/P IV diuretics continue PO Lasix 160mg BID Euvolemic Appreciate Nephrology and cardiology Input COPD Exacerbation Chronic Oxygen dependency: 2L at baseline possible Acute Bronchitis Continue prednisone taper Nebs q4h Doxycycline 100mg BID Day 03/28 continue Ellipta Right Middle and Lower Lobe Collapse: Secondary to diffuse mucous plugs with bronchiectatic changes bilateral lower lobes Based on CT chest Appreciate Pulmonary Input S/P bronchoscopy on January 26, 2018 Video swallow eval: No aspiration pulmonology following Acute Kidney Injury on CKD IV: Slowly improving Nephrology consulted, appreciate recommendations HTN: Stable Continue hydralazine, Imdur, Lopressor. S/P Mechanical Mitral and Aortic Valve replacement Coumadin held for bronchoscopy INR 1.3 today Goal INR is 2.5-3.5 continue heparin ggt, coumadin Atrial Fibrillation: continue Lopressor On heparin bridge plus Coumadin Tobacco use smoking cessation counseling. DVT Px: On heparin drip Disposition PT OT eval Lives at home with On 2 L oxygen by nasal cannula at home Anticipate discharge to home with home health services Vital Signs: Date Time Temp Pulse Resp B/P (MAP) Pulse Ox O2 Delivery O2 Flow Rate FiO2 5/8/18 11:08 36.5 79 16 135/61 (85) 95 Nasal Cannula 2.0 01/27/18 09:09 85 125/61 (82) 01/27/18 08:00 Nasal Cannula 2.0 01/27/18 07:05 83 18 98 Nasal Cannula 2.0 01/27/18 06:49 36.6 76 17 132/53 (79) 98 Nasal Cannula 2.0 01/27/18 04:00 95 Nasal Cannula 2.0 40 01/27/18 03:59 36.8 79 17 154/69 (97) 99 Nasal Cannula 2.0 01/27/18 02:10 83 18 96 Nasal Cannula 2.0 01/26/18 23:59 95 Nasal Cannula 2.0 40 01/26/18 23:37 36.7 86 17 132/70 (90) Nasal Cannula 2.0 01/26/18 20:00 95 Nasal Cannula 01/26/18 19:44 36.7 81 20 122/68 (86) 95 Nasal Cannula 2.0 01/26/18 19:40 78 18 96 Nasal Cannula 2.0 01/26/18 16:00 95 Nasal Cannula 2.0 Humidified Oxygen 01/26/18 15:39 36.7 83 22 136/66 (89) 95 Nasal Cannula 2.0 01/26/18 14:13 71 18 96 Nasal Cannula 2.0 01/26/18 13:05 Oxymask 01/26/18 12:00 Nasal Cannula 2.0 01/26/18 11:32 36.7 84 16 154/68 (96) 96 Lab Results: Results Past 24 Hours Test 01/26/18 17:09 01/27/18 00:55 01/27/18 06:44 01/27/18 08:00 Range/Units Activated Partial Thromboplast Time 33.0 39.7 63.9 52.7 21.0-31.0 SECONDS Partial Thromboplastin Ratio 1.3 1.5 2.5 2.0 White Blood Count 7.73 4.8-10.8 K/uL Red Blood Count 2.55 4.2-5.4 M/uL Hemoglobin 9.2 12.0-16.0 g/dL Hematocrit 28.3 37-47 % Mean Corpuscular Volume 111.0 80-100 fL Mean Corpuscular Hemoglobin 36.1 25-34 pg Mean Corpuscular Hemoglobin Concent 32.5 32-36 g/dl RDW Standard Deviation 61.6 36.4-46.3 fL RDW Coefficient of Variation 15.5 11.5-14.5 % Platelet Count 183 130-400 K/uL Mean Platelet Volume 10.5 7.4-10.4 fL Nucleated RBC Absolute Count (auto) 0.04 0-0 K/uL Nucleated Red Blood Cells % 0.5 % Prothrombin Time 13.7 9.0-12.0 SECONDS Prothromb Time International Ratio 1.3 0.9-1.1 Sodium Level 136 136-145 mmol/L Potassium Level 4.1 3.5-5.1 mmol/L Chloride Level 95 98-107 mmol/L Carbon Dioxide Level 34 21-32 mmol/L Anion Gap 7.0 3-11 mmol/L Blood Urea Nitrogen 85 7-18 mg/dl Creatinine 2.61 0.60-1.20 mg/dl Est Creatinine Clear Calc Drug Dose 14.3 ml/min Estimated GFR () 19.7 Estimated GFR (Non- 17.0 BUN/Creatinine Ratio 32.6 10-20 Random Glucose 90 70-99 mg/dl Calcium Level 9.4 8.5-10.1 mg/dl Iron Level 54 35-150 mcg/dl Transferrin 241 200-360 mg/dl Transferrin % Saturation 16 15-50 % Ferritin 721.6 8.0-388.0 ng/ml
--- NOTE | 2018-01-27 14:26 | Cardiology Follow-Up ---
Subjective Subjective Date of Service: January 27, 2018. Pt evaluation today including: conversation w/ patient, physical exam, chart review, lab review, review of studies, review of inpatient medication list Additional Details: Pt seen and examined, without complaint. Denies cp, sob, palpitations, lightheadedness or dizziness. Anxious to be discharged. Tele reviewed: atrial fibrillation, rate controlled Problem List Medical Problems: (1) CHF (congestive heart failure) Status: Acute (2) CHF (congestive heart failure) Status: Acute (3) Hypoxia Status: Acute (4) Pleural effusion Status: Acute Review of Systems Constitutional: + weakness, + fatigue, No fever Eyes: No worsening of vision Respiratory: + cough, + shortness of breath, No hemoptysis Cardiac: No chest pain, No orthopnea, No PND, No edema, No palpitations Musculoskeletal: No joint pain, No muscle pain Female : No dysuria, No urinary frequency, No hematuria Neurologic: + weakness, + balance problems, No memory loss Psychiatric: No depression symptoms, No anxiety Heme: No abnormal bleeding/bruising Endo: + fatigue Objective Vital Signs Last Vital Signs Documentation Date Time Temp Pulse Resp B/P (MAP) Pulse Ox O2 Delivery O2 Flow Rate FiO2 01/27/18 14:18 85 18 98 Nasal Cannula 2.0 01/27/18 13:36 113/60 (77) 01/27/18 11:08 36.5 01/27/18 04:00 40 Physical Exam: General Appearance: WD/WN, no apparent distress ENT: normal ENT inspection, hearing grossly normal, pharynx normal Respiratory/Chest: chest non-tender, lungs clear, normal breath sounds, no respiratory distress, no accessory muscle use Cardiovascular: + systolic murmur, + irregularly irregular Abdomen: normal bowel sounds, non tender, soft, no organomegaly Extremities: normal inspection, no pedal edema, no calf tenderness Neurologic/Psychiatric: supervisor operations II-XII nml as tested, no motor/sensory deficits, alert, normal mood/affect, oriented x 3 Skin: normal color, warm/dry, no rash Lymphatic: no adenopathy Assessment and Plan Complex 77-year-old female 1. acute decompensated diastolic heart failure secondary to noncompliance with her standard diuretic regimen -symptoms improved with IV diuresis. -Resumed oral home diuretics, appears euvolemic 2. COPD s/p bronch with thick mucus plugs. Video swallow ordered 3. history of 4. MVR and AVR - 27 mm Rehman Medtronic mechanical mitral valve valve, 23 mm Carbomedic aortic valve replacement. resume heparin to coumadin. unfortunately, UFH is the preferred choice doac contraindicated will need to maintain IV heparin until INR therapeutic at 2.5-3.5 5. Chronic atrial fibrillations, rates controlled. Continue beat ida
--- NOTE | 2018-01-27 15:07 | PULMONARY PROGRESS NOTE ---
DATE: 01/27/2018 PROBLEM LIST: Includes: 1. Dyspnea. 2. Right lower lobe bronchial obstruction/atelectasis. SUBJECTIVE: Patient underwent bronchoscopic evaluation yesterday with Dr. Gregg. Significant amount of mucus plugging lavage were removed from bilateral lower lobes. Micro studies are pending. Path studies are pending as well. Patient reports that her breathing has much improved. She feels like she is back to her normal level. She feels like she can take a deep breath without difficulty. She is not short of breath. She is not having any chest congestion or tightness. She does have a cough from time to time, but is much better than it was previously. She denies any discomfort. Currently, she is on 2 liters of oxygen, which is her normal than she is on at home. Currently, she is on 40 mg of prednisone daily and has been on this since the . She is also on doxycycline and will complete a 7-day course tomorrow. She is on levalbuterol nebulizer q. 6 hours routinely with ipratropium. Patient denies any other concerns. No cardiac symptoms. No chest pain or palpitations. No angina. She denies any GI difficulties. No nausea or vomiting. No diarrhea. No difficulties with swelling in her legs. OBJECTIVE: GENERAL: Patient is a 77-year-old female, lying in bed. She is alert and oriented x3. Mood is good. Affect is good. She is interactive and cooperative. VITAL SIGNS: Temp 36.5, pulse 79, respirations 16, blood pressure is 135/61, pulse ox 95% on 2 liters. HEENT: Normocephalic, atraumatic. Pupils equal, round and reactive to light and accommodation. Extraocular movements are intact. [place] and moist gingival and buccal mucosa. NECK: Thin. No mass. No adenopathy. No bruit. CHEST: Diminished breath sounds bilaterally. Few scattered wheezing throughout. Good air movement at both lung bases. CARDIOVASCULAR: Irregularly irregular. Patient has 2/6 systolic ejection murmur. Patient does have a mechanical click from mechanical heart valve. ABDOMEN: Bowel sounds are present. Abdomen is soft, nontender. No guarding, rigidity or organomegaly. EXTREMITIES: No erythema. No edema. NEUROLOGIC: Cranial nerves II through XII are intact. No focal deficit noted. LABORATORY DATA: Shows white count of 7000, H and H 9.2 and 28.3, platelet count of 183,000. BUN 85, creatinine 2.61. Bronch washings, AFB and fungal smear, cultures are pending. Path is pending. No new imagings. IMPRESSION: This is a 77-year-old female who is chronically on O2 who presented with increasing or progressive dyspnea as well as a right lower lobe bronchial obstruction/atelectasis. Patient did have bilateral lower lobe mucus plugging, which was lavaged with bronchoscopy. Patient has shown significant improvement following this. At this point, we can start decreasing her prednisone and plan on tapering by 5 mg every 2 days until she is off, tomorrow will be day 7 of doxycycline and unless something comes back from micro showing infection, she should be able to be discontinued on the doxycycline. Would recommend to continue nebulization treatment and would recommend that she have an appointment with her pulmonary department in [facility] within 7-10 days. Patient seen examined and agree with plan. SAMMIE
[2018-01-27] MEDS: WARFARIN SOD 5 MG TAB PO SCH (16:09)
[2018-01-27] MEDS: GABAPENTIN 100 MG CAP PO SCH (20:01)
[2018-01-27] MEDS: RANITIDINE HCL 150 MG TAB PO SCH (20:03)
[2018-01-28] VITALS (14 sets, daily range): BP systolic 93–126; BP diastolic 45–66; PULSE 74–92; TEMP 36.8–37.1; O2SAT 83–98
[2018-01-28] MEDS: IPRATROPIUM BROMIDE NEB SOLN 0.02% 2.5 ML VIAL INH SCH ×4 (01:34→19:02)
[2018-01-28] MEDS: LEVALBUTEROL 0.63MG/3 ML NEB INH SCH ×4 (01:34→19:02)
[2018-01-28] MEDS: LEVOTHYROXINE 25 MCG TAB PO SCH (05:51)
[2018-01-28 06:28] LABS: INR 1.3 (0.9-1.1); PTT PATIENT 36.4 SECONDS (21.0-31.0)
[2018-01-28 06:45] LABS: CALCIUM 9.3 mg/dl (8.5-10.1); CREATININE 2.95 mg/dl (0.60-1.20); POTASSIUM 3.8 mmol/L (3.5-5.1)
[2018-01-28] MEDS ORDERED: HEPARIN IV BOLUS 4,000 UNIT in SYRINGE 0 ML IV ONE (07:00)
[2018-01-28] MEDS: HEPARIN 25,000 UNIT/500ML D5W 500 ML IV SCH ×2 (07:01→09:12)
--- NOTE | 2018-01-28 07:09 | DIAGNOSTIC IMAGING REPORT ---
CHEST ONE VIEW PORTABLE HISTORY: 77 years-old Female RLL atelectasis, dyspnea acute shortness of breath COMPARISON: Chest radiograph 01/21/2018, CT chest 01/22/2018 TECHNIQUE: Portable AP view of the chest FINDINGS: Cardiac silhouette is moderately enlarged, unchanged. Prior median sternotomy with prosthetic aortic valve. Atherosclerosis of the aorta. There is no pneumothorax. Moderate right and small left pleural effusions are redemonstrated with persistent pulmonary vascular congestion and mild interstitial coarsening and bibasilar consolidative opacities. Degenerative changes of the shoulders and spine. Retained oral contrast is seen within the splenic flexure. IMPRESSION: 1. Cardiomegaly with prior median sternotomy and prosthetic aortic valve. 2. Persistent mild pulmonary edema pattern with moderate right and small left pleural effusions . 3. Bibasilar opacities suggest atelectasis. The above report was generated using voice recognition software. It may contain grammatical, syntax or spelling errors. Electronically signed by: Malachi Foster M.D. 01/28/2018 7:08 AM Dictated Date/Time: 01/28/2018 7:05 AM
[2018-01-28] MEDS: UMECLIDINIUM-VILANTEROL (ANORO) INH SCH (08:11)
[2018-01-28] MEDS: ISOSORBIDE MONONITRATE 60 MG TABCR PO SCH (08:12)
[2018-01-28] MEDS: PANTOprazole SOD 40 MG TAB PO SCH ×2 (08:12→20:56)
[2018-01-28] MEDS: ALLOPURINOL 100 MG TAB PO SCH (08:13)
[2018-01-28] MEDS: MONTELUKAST SOD 10 MG TAB PO SCH (08:13)
[2018-01-28] MEDS: DOXYCYCLINE HYCLATE 100 MG CAP PO SCH (08:14)
[2018-01-28] MEDS: CYANOCOBALAMIN 500 MCG TAB (VIT B-12) PO SCH (08:14)
[2018-01-28] MEDS: POTASSIUM CHLORIDE 20 MEQ TABCR PO SCH ×2 (08:14→20:55)
--- NOTE | 2018-01-28 08:52 | Pulmonology Progress Note ---
Pulmonary Progress Note Date of Service January 28, 2018. Attending Dr. Gregg Subjective Patient notes she is at her baseline respiratory status and at this time denies fever, chills, productive cough Objective Patient sitting up in bed moving throughout the room easily with no signs of dyspnea Admitted 01/19/2018 progressive dyspnea and on workup radiographs show a right lower lobe/right middle lobe opacification with bronchial obstruction: Vital signs: Stable on 2 L Respiratory: Decreased breath sounds globally but notable dullness to percussion right lower lobe/ultrasound shows small multiple fluid pockets no access for thoracentesis appreciated Cardiac: S1-S2 4-6 systolic murmur best appreciated right upper sternal border as well as apex Abdomen: Positive bowel sounds soft nontender Extremities: No clubbing cyanosis or edema PmHx: Diastolic heart failure, rheumatic heart disease, mechanical AVR and MVR on Coumadin, hypertension, ongoing tobacco dependence, COPD, 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 Right lower lobe infiltrate: Bronchoscopy showed diffuse erythema in the bilateral lobes with notable mucus plugging chest x-ray from 01/28/2018 does not show dramatic improvement right lower lobe opacification. At this time I will order noncontrast CT for further follow-up as the thoracic ultrasound evaluation did not show large pleural effusion but only multiple small pleural effusions with no direct access via thoracentesis. Data Medications: Current Inpatient Medications Medications (Trade) Dose Ordered Sig/Shana Route Start Time Stop Time Status Last Admin Dose Admin Acetaminophen (Tylenol Tab) 650 mg Q4H PRN PO 01/19/18 20:15 02/18/18 20:14 Al Hydrox/Mg Hydrox/Simethicone (Maalox Max Susp) 15 ml Q4H PRN PO 01/19/18 20:15 02/18/18 20:14 Ondansetron HCl (Zofran Inj) 4 mg Q6H PRN IV 01/19/18 20:15 02/18/18 20:14 Nitroglycerin (Nitrostat Tab) 0.4 mg UD PRN SL 01/19/18 20:15 02/18/18 20:14 Polyethylene (Miralax Powder Packet) 17 gm DAILY PRN PO 01/19/18 20:15 02/18/18 20:14 01/25/18 08:55 17 GM Allopurinol (Zyloprim Tab) 100 mg QAM PO 01/20/18 09:00 02/19/18 08:59 01/28/18 08:13 100 MG Calcitriol (Rocaltrol Cap) 0.25 mcg MoTh@1400 PO 01/22/18 14:00 02/21/18 13:59 01/26/18 14:48 0.25 MCG Cyanocobalamin (Vitamin B-12 Tab) 1,000 mcg DAILY PO 01/20/18 09:00 02/19/18 08:59 01/28/18 08:14 1,000 MCG Folic Acid (Folvite Tab) 1 mg QAM PO 01/20/18 09:00 02/19/18 08:59 01/28/18 08:14 1 MG Gabapentin (Neurontin Cap) 100 mg HS PO 01/19/18 21:00 02/18/18 20:59 01/27/18 20:01 100 MG Guaifenesin (Organidin Nr Tab) 200 mg Q6 PRN PO 01/19/18 20:15 02/18/18 20:14 Hydralazine HCl (Apresoline Tab) 50 mg TID PO 01/19/18 21:00 02/18/18 20:59 01/27/18 19:59 50 MG Isosorbide Mononitrate (Imdur Ext Rel Tab) 60 mg QAM PO 01/20/18 09:00 02/19/18 08:59 01/28/18 08:12 60 MG Levothyroxine Sodium (Synthroid Tab) 25 mcg DAILYBB PO 01/20/18 06:00 02/19/18 05:59 01/28/18 05:51 25 MCG Metoprolol Tartrate (Lopressor Tab) 50 mg BID PO 01/19/18 22:00 02/18/18 21:59 01/27/18 20:00 50 MG Montelukast Sodium (Singulair Tab) 10 mg DAILY PO 01/20/18 09:00 02/19/18 08:59 01/28/18 08:13 10 MG Pantoprazole Sodium (Protonix Tab) 40 mg BID PO 01/19/18 22:00 02/18/18 21:59 01/28/18 08:12 40 MG Potassium Chloride (Klor-Con Tab) 20 meq BID PO 01/19/18 22:00 02/18/18 21:59 01/28/18 08:14 20 MEQ Ranitidine HCl (zANTac TAB) 300 mg HS PO 01/19/18 21:00 02/18/18 20:59 01/27/18 20:03 300 MG Albuterol (Ventolin Hfa Inhaler) 2 puffs Q4 PRN INH 01/20/18 10:30 02/19/18 10:29 Furosemide (Lasix Tab) 160 mg BID17 PO 01/21/18 10:00 02/20/18 09:59 01/27/18 16:09 160 MG Ferrous Fumarate (Darío-Sequels Contr Rel Cap) 65 mg QAM PO 01/22/18 09:00 02/21/18 08:59 Future Hold 01/27/18 07:39 65 MG Levalbuterol (Xopenex 0.63 Mg/ 3 Ml Neb) 0.63 mg Q6R INH 01/21/18 15:00 02/20/18 14:59 01/28/18 07:11 0.63 MG Ipratropium Peyton (Atrovent 0.02% 0.5MG/2.5ML Neb) 0.5 mg Q6R INH 01/21/18 15:00 02/20/18 14:59 01/28/18 07:11 0.5 MG Doxycycline Hyclate (Vibramycin Cap) 100 mg BID PO 01/21/18 21:00 01/28/18 20:59 01/28/18 08:14 100 MG Lactulose (Chronulac Syrup) 30 gm BID PRN PO 01/25/18 14:00 02/24/18 13:59 Bisacodyl (Dulcolax Supp) 10 mg DAILY PRN [place] 01/25/18 14:00 02/24/18 13:59 01/25/18 21:42 10 MG Warfarin Sodium (Coumadin Tab) 5 mg DAILY@16 PO 01/26/18 16:00 02/25/18 15:59 01/27/18 16:09 5 MG Heparin Sodium/ Dextrose 500 ml @ 18 mls/hr Q24H IV 01/26/18 11:00 02/25/18 10:59 01/28/18 07:01 18 MLS/HR Prednisone (PredniSONE TAB) 35 mg DAILY PO 01/28/18 09:00 02/22/18 08:59 01/28/18 08:15 35 MG Vital Signs: Date Time Temp Pulse Resp B/P (MAP) Pulse Ox O2 Delivery O2 Flow Rate FiO2 01/28/18 08:10 88 15 103/45 (64) 96 Nasal Cannula 2.0 01/28/18 08:00 95 Nasal Cannula 2.0 01/28/18 07:11 83 16 95 Nasal Cannula 2.0 01/28/18 06:51 37.1 76 18 93/52 (66) 93 Nasal Cannula 2.0 01/28/18 04:00 Nasal Cannula 2.0 01/28/18 03:59 36.8 75 17 109/66 (80) 98 Nasal Cannula 2.0 01/28/18 01:34 84 16 83 Room Air 01/27/18 23:59 Nasal Cannula 2.0 01/27/18 23:16 36.8 79 16 125/55 (78) 97 Nasal Cannula 2.0 01/27/18 20:00 Nasal Cannula 2.0 01/27/18 19:09 36.8 118 20 119/53 (75) 90 Nasal Cannula 2.0 01/27/18 18:57 84 16 96 Nasal Cannula 2.0 01/27/18 16:00 Nasal Cannula 2.0 01/27/18 15:14 37.1 76 20 115/48 (70) 95 Nasal Cannula 2.0 01/27/18 14:18 85 18 98 Nasal Cannula 2.0 01/27/18 13:36 86 113/60 (77) 96 Nasal Cannula 2.0 01/27/18 12:00 Nasal Cannula 2.0 01/27/18 11:08 36.5 79 16 135/61 (85) 95 Nasal Cannula 2.0 01/27/18 09:09 85 125/61 (82) Laboratory Results: Last 24 Hours Test 01/28/18 05:44 Prothrombin Time 14.0 SECONDS Prothromb Time International Ratio 1.3 Activated Partial Thromboplast Time 36.4 SECONDS Partial Thromboplastin Ratio 1.4 Sodium Level 136 mmol/L Potassium Level 3.8 mmol/L Chloride Level 94 mmol/L Carbon Dioxide Level 36 mmol/L Anion Gap 6.0 mmol/L Blood Urea Nitrogen 94 mg/dl Creatinine 2.95 mg/dl Est Creatinine Clear Calc Drug Dose 12.6 ml/min Estimated GFR () 17.0 Estimated GFR (Non- 14.7 BUN/Creatinine Ratio 31.8 Random Glucose 89 mg/dl Calcium Level 9.3 mg/dl
[2018-01-28] MEDS: FUROSEMIDE 40 MG TAB PO SCH ×2 (09:12→16:43)
[2018-01-28] MEDS: METOPROLOL TARTRATE 50 MG TAB PO SCH ×2 (09:12→20:55)
[2018-01-28] MEDS ORDERED: WARFARIN SOD 2.5 MG TAB PO ONE (10:00)
--- NOTE | 2018-01-28 10:11 | Progress Note ---
Internal Med Progress Note Date of Service: January 28, 2018. Provider Documentation: SUBJECTIVE: Seen and examined at bedside Doing well today Just returned from CT scan No complaints Feels well symptomatically Denies Chest pain, SOB, dizziness, cough On Heparin ggt Eager to get discharged OBJECTIVE: Vital Signs-as noted below Physical Exam: General Appearance:Moderately built and nourished, no apparent distress Head: normocephalic, Atraumatic Eyes: normal inspection, EOMI, PERRL Neck: supple, Trachea midline Respiratory/Chest: Decreased breath sounds, CTA Cardiovascular: S1, S2, No murmur Abdomen/GI:Soft, Non tender, Bowel sounds present Extremities/Musculoskelatal:normal inspection, no edema Neurologic/Psych:AAOX3, grossly no focal neurological deficits Skin: normal color, warm Lab data as noted below. ASSESSMENT & PLAN: Patient is a 77 yr female with PMH of diastolic CHF, S/P mechanical aortic valve replacement, S/P mitral valve replacement, Chronic respiratory failure on oxygen 2-3 L by nasal cannula, COPD, hypertension, CKD IV presented with shortness of breath Acute on chronic diastolic CHF Secondary to accidentally taking reduced dose of her usual Lasix usually on Lasix 160 mg PO BID S/P IV diuretics continue PO Lasix 160mg BID Euvolemic Appreciate Nephrology and cardiology Input COPD Exacerbation Chronic Oxygen dependency: 2L at baseline possible Acute Bronchitis Continue prednisone taper course Nebs q4h To complete Doxycycline 7 day course today continue Ellipta Right Middle and Lower Lobe Collapse: Secondary to diffuse mucous plugs with bronchiectatic changes bilateral lower lobes Based on CT chest Appreciate Pulmonary Input S/P bronchoscopy on January 26, 2018: showed diffuse erythema, mucus plugging Video swallow eval: No aspiration pulmonology following CXR: no much improvement of right lower lobe opacification after bronchoscopy Chest CT pending Acute Kidney Injury on CKD IV: monitor renal function On diuretics Nephrology consulted, appreciate recommendations Discussed with today HTN: Labile Continue hydralazine, Imdur, Lopressor. S/P Mechanical Mitral and Aortic Valve replacement Coumadin held for bronchoscopy INR 1.3 today Goal INR is 2.5-3.5 continue heparin ggt, coumadin Atrial Fibrillation: continue Lopressor On heparin bridge plus Coumadin Will give Coumadin 7.5mg daily today Tobacco use smoking cessation counseling. DVT Px: On heparin drip Disposition PT OT eval Lives at home with On 2 L oxygen by nasal cannula at home Anticipate discharge to home with home health services Vital Signs: Date Time Temp Pulse Resp B/P (MAP) Pulse Ox O2 Delivery O2 Flow Rate FiO2 01/28/18 08:10 88 15 103/45 (64) 96 Nasal Cannula 2.0 01/28/18 08:00 95 Nasal Cannula 2.0 01/28/18 07:11 83 16 95 Nasal Cannula 2.0 01/28/18 06:51 37.1 76 18 93/52 (66) 93 Nasal Cannula 2.0 01/28/18 04:00 Nasal Cannula 2.0 01/28/18 03:59 36.8 75 17 109/66 (80) 98 Nasal Cannula 2.0 01/28/18 01:34 84 16 83 Room Air 01/27/18 23:59 Nasal Cannula 2.0 01/27/18 23:16 36.8 79 16 125/55 (78) 97 Nasal Cannula 2.0 01/27/18 20:00 Nasal Cannula 2.0 01/27/18 19:09 36.8 118 20 119/53 (75) 90 Nasal Cannula 2.0 01/27/18 18:57 84 16 96 Nasal Cannula 2.0 01/27/18 16:00 Nasal Cannula 2.0 01/27/18 15:14 37.1 76 20 115/48 (70) 95 Nasal Cannula 2.0 01/27/18 14:18 85 18 98 Nasal Cannula 2.0 01/27/18 13:36 86 113/60 (77) 96 Nasal Cannula 2.0 01/27/18 12:00 Nasal Cannula 2.0 01/27/18 11:08 36.5 79 16 135/61 (85) 95 Nasal Cannula 2.0 Lab Results: Results Past 24 Hours Test 01/28/18 05:44 Range/Units Prothrombin Time 14.0 9.0-12.0 SECONDS Prothromb Time International Ratio 1.3 0.9-1.1 Activated Partial Thromboplast Time 36.4 21.0-31.0 SECONDS Partial Thromboplastin Ratio 1.4 Sodium Level 136 136-145 mmol/L Potassium Level 3.8 3.5-5.1 mmol/L Chloride Level 94 98-107 mmol/L Carbon Dioxide Level 36 21-32 mmol/L Anion Gap 6.0 3-11 mmol/L Blood Urea Nitrogen 94 7-18 mg/dl Creatinine 2.95 0.60-1.20 mg/dl Est Creatinine Clear Calc Drug Dose 12.6 ml/min Estimated GFR () 17.0 Estimated GFR (Non- 14.7 BUN/Creatinine Ratio 31.8 10-20 Random Glucose 89 70-99 mg/dl Calcium Level 9.3 8.5-10.1 mg/dl
--- NOTE | 2018-01-28 11:02 | DIAGNOSTIC IMAGING REPORT ---
(CHEST) THORAX WITHOUT CT DOSE: 170.62 mGy.cm HISTORY: Right lower lobe opacification/atelectasis TECHNIQUE: Multiaxial CT images of the chest were performed without contrast. A dose lowering technique was utilized adhering to the principles of ALARA. COMPARISON: Chest CT 01/22/2018. FINDINGS: No pneumothorax. Emphysema. Mild interlobular septal thickening with patchy ground glass airspace opacities throughout the majority of the lungs. This favors mild pulmonary edema and is similar to the prior study. A few scattered peripheral groundglass subcentimeter nodular densities are new from the prior study. This could also be a component of the pulmonary edema. No suspicious lytic or blastic osseous lesions. There are poststernotomy changes and aortic and mitral valve replacement. The heart remains moderately enlarged. No pericardial effusion. The visualized unenhanced liver and adrenal glands are unremarkable. A few calcified granulomas within the spleen. There is a punctate stone within the left kidney. Stable slightly dense 1.9 x 1.0 cm nodule within the superior mediastinum. This favors a substernal thyroid nodule. No mediastinal or hilar lymphadenopathy on this unenhanced exam. The main pulmonary artery is mildly distended up to 3.4 cm. This is consistent with pulmonary arterial hypertension. Moderate right pleural effusion is not significantly changed in size. Trace left pleural effusion and patchy left basilar densities have slightly improved. Partial opacification of the left lower lobe bronchi. There is complete opacification of the distal bronchus intermedius, right middle lobe bronchi, and right lower lobe bronchi. This has progressed. Complete collapse of the right middle lobe and lower lobe are again noted. This could be due to compression from the pleural effusion. IMPRESSION: 1. No significant change in size in the moderate right pleural effusion. Trace left pleural effusion has improved. 2. There is again noted complete collapse of the right middle lobe and right lower lobe. There is progressive opacification of the distal bronchus intermedius with complete opacities in the right middle and lower lobe bronchi. The collapse of the right middle lobe and lower lobe could be due to compressive atelectasis from the moderate right pleural effusion. However, the opacified bronchi raise the possibility of an underlying obstructing lesion. No evidence for a mass on this noncontrast study at this time. If not already performed, bronchoscopy should be considered for further evaluation. In addition, this requires follow-up to ensure complete resolution. 3. Mild pulmonary edema and cardiomegaly persist. Electronically signed by: rFoy Laguerre M.D. 01/28/2018 11:01 AM Dictated Date/Time: 01/28/2018 10:38 AM
[2018-01-28 13:39] LABS: PTT PATIENT 51.6 SECONDS (21.0-31.0)
[2018-01-28] MEDS: WARFARIN SOD 5 MG TAB PO SCH (16:00)
[2018-01-28] MEDS ORDERED: NURSING VERBAL MED ORDER ONE ×2 (16:45→21:15)
[2018-01-28] MEDS: GABAPENTIN 100 MG CAP PO SCH (20:54)
[2018-01-28] MEDS: RANITIDINE HCL 150 MG TAB PO SCH (20:56)
[2018-01-29] VITALS (15 sets, daily range): BP systolic 107–135; BP diastolic 49–70; PULSE 72–85; TEMP 36.5–37; O2SAT 89–99
[2018-01-29] MEDS: IPRATROPIUM BROMIDE NEB SOLN 0.02% 2.5 ML VIAL INH SCH ×2 (01:55→07:06)
[2018-01-29] MEDS: LEVALBUTEROL 0.63MG/3 ML NEB INH SCH ×2 (01:56→07:06)
[2018-01-29] MEDS: LEVOTHYROXINE 25 MCG TAB PO SCH (05:42)
[2018-01-29] MEDS ORDERED: LIDOCAINE HCL 2% LOCAL 20 ML VIAL INFIL SCH (06:00)
[2018-01-29 06:09] LABS: HEMATOCRIT 27.4 % (37-47); HEMOGLOBIN 9.4 g/dL (12.0-16.0); MEAN CELL VOLUME 108.7 fL (80-100); MEAN CORPUSCULAR HEMOGLOBIN 37.3 pg (25-34); MEAN CORPUSCULAR HGB CONC 34.3 g/dl (32-36); MEAN PLATELET VOLUME 10.6 fL (7.4-10.4); PLATELET COUNT 196 K/uL (130-400); RED CELL DISTRIBUTION WIDTH CV 15.6 % (11.5-14.5); RED CELL DISTRIBUTION WIDTH SD 60.7 fL (36.4-46.3); WHITE BLOOD COUNT 5.57 K/uL (4.8-10.8)
[2018-01-29 06:19] LABS: INR 1.4 (0.9-1.1); PTT PATIENT 27.1 SECONDS (21.0-31.0)
[2018-01-29 06:42] LABS: CALCIUM 9.6 mg/dl (8.5-10.1); CREATININE 3.05 mg/dl (0.60-1.20); POTASSIUM 3.9 mmol/L (3.5-5.1)
--- NOTE | 2018-01-29 08:28 | DIAGNOSTIC IMAGING REPORT ---
CHEST ONE VIEW PORTABLE CLINICAL HISTORY: effusion dyspnea COMPARISON STUDY: 01/28/2018 FINDINGS: Mildly improved components of congestive failure/pulmonary edema. Interval right basilar improved aeration post right basilar drainage tube placement. Mid and upper lungs are considered clear. Minimal atelectasis left base stable. IMPRESSION: Improved aeration right base post right basilar chest drainage tube placement. No evidence for pneumothorax. Improving components of congestive failure The above report was generated using voice recognition software. It may contain grammatical, syntax or spelling errors. Electronically signed by: Jorge Lindo M.D. 01/29/2018 8:27 AM Dictated Date/Time: 01/29/2018 8:25 AM
[2018-01-29] MEDS ORDERED: NURSING VERBAL MED ORDER ONE ×2 (08:30→09:45)
[2018-01-29] MEDS: HEPARIN 25,000 UNIT/500ML D5W 500 ML IV SCH ×2 (09:02→21:27)
[2018-01-29] MEDS: UMECLIDINIUM-VILANTEROL (ANORO) INH SCH (09:04)
[2018-01-29] MEDS: MONTELUKAST SOD 10 MG TAB PO SCH (09:04)
[2018-01-29] MEDS: ALLOPURINOL 100 MG TAB PO SCH (09:05)
[2018-01-29] MEDS: CYANOCOBALAMIN 500 MCG TAB (VIT B-12) PO SCH (09:05)
[2018-01-29] MEDS: POTASSIUM CHLORIDE 20 MEQ TABCR PO SCH ×2 (09:05→21:02)
[2018-01-29] MEDS: ISOSORBIDE MONONITRATE 60 MG TABCR PO SCH (09:06)
[2018-01-29] MEDS: PANTOprazole SOD 40 MG TAB PO SCH ×2 (09:07→21:01)
[2018-01-29] MEDS: METOPROLOL TARTRATE 50 MG TAB PO SCH ×2 (09:08→21:02)
[2018-01-29] MEDS: FUROSEMIDE 40 MG TAB PO SCH ×2 (09:29→16:08)
[2018-01-29 09:37] LABS: PLEURAL FLUID TOTAL PROTEIN 1.9 g/dl
[2018-01-29] MEDS: TRAMADOL HCL 50 MG TAB PO PRN ×3 (09:51→21:00)
--- NOTE | 2018-01-29 10:15 | SURGICAL CONSULTATION ---
DATE OF CONSULTATION: 01/28/2018 REASON FOR CONSULTATION: Loculated right pleural effusion. HISTORY OF PRESENT ILLNESS: This is a very nice 77-year-old rather small female who has multiple medical issues. She had a rheumatic valve disease and has had an aortic and mitral valve replacement with mechanical valves. She has chronic atrial fibrillation with renal insufficiency. She occasionally will develop congestive heart failure and presented here to [facility] on 01/19/2018 with signs and symptoms of congestive heart failure. She is found to have right middle and right lower lobe atelectasis. She was evaluated by Dr. Collins Ambrose and Dr. Nick Gregg from pulmonary and underwent a bronchoscopy which showed no endobronchial lesions, although she did have mucus in both lower lobes and had inflammation of both lower lung trees and the bronchial curry. Thus far, we see no evidence of malignancy. She has a collapse, which has been persistent of her right lower lobe and some of her middle lobe too. I was asked to evaluate her because she had a complex pleural effusion. I was asked to evaluate this patient from a thoracic surgery standpoint. The patient is on 2 L of O2, but has been ambulating in the hallway. I had a long talk with the patient and her daughter. She is on a heparin drip now and they are resuming her Coumadin. She is an active cigarette smoker, smokes a pack of cigarettes a day, has been smoking since the age of 16. PAST MEDICAL HISTORY: 1. Rheumatic heart disease. 2. Status post mitral and aortic valve replacements. 3. Atrial fibrillation. 4. Active cigarette smoker. 5. Chronic obstructive pulmonary disease. 6. Renal insufficiency. 7. Hyperlipidemia. 8. Hypertension. PAST SURGICAL HISTORY: 1. Right hip replacement. 2. Thyroidectomy. 3. Left total hip arthroplasty. 4. Hysterectomy. 5. Aortic valve replacement with mitral valve replacement. MEDICATIONS: Please see chart, but includes Coumadin and heparin. ALLERGIES: AMLODIPINE. SOCIAL HISTORY: The patient has been smoking a pack of cigarettes a day for over 60 years. She lives with her . [place] and was the only child. She has had multiple different jobs, but has never been exposed to asbestos. She drinks a glass of wine a day. Her has early stages of Alzheimer's. Her family is very supportive. FAMILY MEDICAL HISTORY: Her father had "cigarette examiner's lung" and mother in her 70s with a cerebrovascular accident and has also had dementia. She has no siblings. Her 3 children and multiple grandchildren are healthy. REVIEW OF SYSTEMS: The patient states her weight has been relatively stable, although she has lost a bit of weight over the last 6 months. She states that she was normally about 105 and this has gone down to about 100 pounds today. While here in the hospital, she has lost 6 kg. The patient states that her appetite has been "poor." She denies nausea or vomiting. She has been short of breath. She has had peripheral edema in the past but has none now. She denies orthopnea. She denies any or other GI problems. She has had no wound breakdown. She has had no neurologic symptoms. She has complained of some chest fullness. PHYSICAL EXAMINATION: GENERAL: This is a diminutive female who stands 5 feet 2 inches tall and weighs 108 pounds. HEENT: Her extraocular movements are intact. Her sclerae are pale, but anicteric. She has had bilateral arcus senilis. She has most of her own teeth and has no active caries. She has no oral mucosal lesions. Her tongue is midline. Oral mucosa is a bit dry. She has marked neck vein distention at 90 degrees. She has a well-healed thyroidectomy incision. CHEST: She has a well-healed sternal incision with no click. She has markedly decreased breath sounds on the right. She has a few rhonchi on the left with no wheezing. HEART: She has an irregular, irregular rhythm with a click from her prosthetic valves. ABDOMEN: Flat, soft. EXTREMITIES: She has trace edema. She has diminished pedal pulses, but they are present. Her feet are warm and well perfused. She has no joint effusions. She has bilateral well-healed trochanteric incisions. NEUROLOGIC: She is awake, alert and oriented, has no obvious focal deficits. DATA REVIEW: Her CT scan and she does have what appears to be a loculated effusion on the right. ASSESSMENT AND PLAN: Loculated pleural effusion in a complex patient who is on Coumadin and heparin. We are going to hold that tonight and her INR is only 1.3 today. We will hold her Coumadin, stop her heparin drip at midnight and perform a PleurX catheter insertion in the morning. SAMMIE
--- NOTE | 2018-01-29 11:03 | OPERATIVE REPORT ---
DATE OF OPERATION: 01/29/2018 PREOPERATIVE DIAGNOSIS: Loculated right pleural effusion. POSTOPERATIVE DIAGNOSIS: Loculated right pleural effusion. PROCEDURE: Insertion of right PleurX catheter under ultrasound guidance. SURGEON: Crispin May MD VENTILATED RIB FITTER: BRITTNEE Stanley ANESTHESIA: Local. SPECIFICS OF PROCEDURE: With the patient in left lateral decubitus position, right chest prepped and draped in usual sterile fashion. Under ultrasound guidance at about the mid axillary line at the eighth interspace, a nice window was seen with fluid. The patient was prepped and draped in usual sterile fashion. A 0.5% Xylocaine with a 25 gauge needle was used to create 2 skin wheals, one over the area we had marked with the ultrasound, the other about 10 cm anterior. A large bore needle was used to anesthetize the deeper tissues in the posterior skin wheal and then we got free flowing fluid back. I anesthetized the pleura and the muscle. A guidewire was inserted and the needle then removed. A 1 cm incision was made at both skin wheals and a long needle was used to anesthetize the subcutaneous tissues between the two. A tunnel was attached to PleurX catheter and dragged from the anterior to posterior incision and the tunneler removed. Introducer sheath with an inner cannula was slid over the guidewire. The inner cannula and guidewire removed and the PleurX catheter slid through the peel away sheath which was then removed. Two 3-0 silk sutures were used to close the posterior incision and a 3-0 silk suture was used to anteriorly anchor the catheter to the patient's skin. Approximately 600 mL of a yellow fluid was drained. The pH was 7.5 with the ice tap. She had reexpansion pain and coughing and then we quit draining and capped it and placed antimicrobial dressings over both incisions and then taped this up. X-ray showed no evidence of pneumothorax with good drainage of the fluid. She tolerated quite well. I attest to the content of the Intraoperative Record and any orders documented therein. Any exception s are noted below.
--- NOTE | 2018-01-29 11:57 | Progress Note ---
Internal Med Progress Note Date of Service: January 29, 2018. Provider Documentation: SUBJECTIVE: Seen and examined at bedside Reports mild pain at the site of PleurX Catheter Otherwise feels well Denies Chest pain, SOB, dizziness, cough On Heparin ggt OBJECTIVE: Vital Signs-as noted below Physical Exam: General Appearance:Moderately built and nourished, no apparent distress Head: normocephalic, Atraumatic Eyes: normal inspection, EOMI, PERRL Neck: supple, Trachea midline Respiratory/Chest: Normal breath sounds, CTA Cardiovascular: S1, S2, No murmur Abdomen/GI:Soft, Non tender, Bowel sounds present Extremities/Musculoskelatal:normal inspection, no edema Neurologic/Psych:AAOX3, grossly no focal neurological deficits Skin: normal color, warm Lab data as noted below. ASSESSMENT & PLAN: Patient is a 77 yr female with PMH of diastolic CHF, S/P mechanical aortic valve replacement, S/P mitral valve replacement, Chronic respiratory failure on oxygen 2-3 L by nasal cannula, COPD, hypertension, CKD IV presented with shortness of breath Acute on chronic diastolic CHF Secondary to accidentally taking reduced dose of her usual Lasix usually on Lasix 160 mg PO BID S/P IV diuretics continue PO Lasix 160mg BID Euvolemic Appreciate Nephrology and cardiology Input COPD Exacerbation Chronic Oxygen dependency: 2L at baseline possible Acute Bronchitis Continue prednisone taper course Nebs q4h completed Doxycycline 7 day course continue Ellipta Loculated Pleural Effusion Right Middle and Lower Lobe Collapse: Secondary to diffuse mucous plugs with bronchiectatic changes bilateral lower lobes S/P bronchoscopy on January 26, 2018: showed diffuse erythema, mucus plugging S/P : Insertion of right PleurX catheter under ultrasound guidance Appreciate Pulmonary/CT surgery Input Video swallow eval: No aspiration Pulmonary considering repeat CT chest monitor Saturating well on room air Acute Kidney Injury on CKD IV: monitor renal function On diuretics Nephrology consulted, appreciate recommendations Discussed with Advised to follow up as outpatient HTN: Continue hydralazine, Imdur, Lopressor. S/P Mechanical Mitral and Aortic Valve replacement Coumadin held for bronchoscopy INR 1.4 today Goal INR is 2.5-3.5 continue heparin ggt, coumadin Atrial Fibrillation: continue Lopressor On heparin bridge plus Coumadin Tobacco use smoking cessation counseling. DVT Px: On heparin drip Coumadin Disposition: PT OT eval Lives at home with On 2 L oxygen by nasal cannula at home Anticipate discharge to home with home health services Vital Signs: Date Time Temp Pulse Resp B/P (MAP) Pulse Ox O2 Delivery O2 Flow Rate FiO2 01/29/18 11:29 36.7 73 16 107/49 (68) 96 Room Air 01/29/18 08:00 95 Nasal Cannula 2.0 01/29/18 07:08 76 16 97 Nasal Cannula 2.0 01/29/18 06:59 72 17 121/62 (81) 98 Nasal Cannula 2.0 01/29/18 04:10 37.0 84 16 121/53 (75) 98 Nasal Cannula 01/29/18 04:00 95 Nasal Cannula 2.0 40 01/29/18 01:56 78 16 97 Nasal Cannula 2.0 01/29/18 00:13 36.7 75 16 135/70 (91) 97 Room Air 01/29/18 00:00 95 Nasal Cannula 2.0 40 01/29/18 00:00 95 Nasal Cannula 2.0 01/28/18 20:10 37.0 92 22 126/51 (76) 95 Nasal Cannula 2.0 01/28/18 20:00 95 Nasal Cannula 2.0 01/28/18 19:03 83 16 98 Nasal Cannula 2.0 01/28/18 16:00 94 Nasal Cannula 2.0 01/28/18 15:33 36.9 90 20 116/54 (74) 94 Nasal Cannula 2.0 01/28/18 14:08 74 16 95 Nasal Cannula 2.0 Lab Results: Results Past 24 Hours Test 01/28/18 13:07 01/29/18 05:38 01/29/18 08:02 Range/Units Activated Partial Thromboplast Time 51.6 27.1 21.0-31.0 SECONDS Partial Thromboplastin Ratio 2.0 1.0 White Blood Count 5.57 4.8-10.8 K/uL Red Blood Count 2.52 4.2-5.4 M/uL Hemoglobin 9.4 12.0-16.0 g/dL Hematocrit 27.4 37-47 % Mean Corpuscular Volume 108.7 80-100 fL Mean Corpuscular Hemoglobin 37.3 25-34 pg Mean Corpuscular Hemoglobin Concent 34.3 32-36 g/dl RDW Standard Deviation 60.7 36.4-46.3 fL RDW Coefficient of Variation 15.6 11.5-14.5 % Platelet Count 196 130-400 K/uL Mean Platelet Volume 10.6 7.4-10.4 fL Prothrombin Time 15.1 9.0-12.0 SECONDS Prothromb Time International Ratio 1.4 0.9-1.1 Sodium Level 136 136-145 mmol/L Potassium Level 3.9 3.5-5.1 mmol/L Chloride Level 93 98-107 mmol/L Carbon Dioxide Level 35 21-32 mmol/L Anion Gap 8.0 3-11 mmol/L Blood Urea Nitrogen 107 7-18 mg/dl Creatinine 3.05 0.60-1.20 mg/dl Est Creatinine Clear Calc Drug Dose 12.0 ml/min Estimated GFR () 16.3 Estimated GFR (Non- 14.1 BUN/Creatinine Ratio 35.0 10-20 Random Glucose 80 70-99 mg/dl Calcium Level 9.6 8.5-10.1 mg/dl Pleural Fluid Source RIGHT LUNG Pleural Fluid Color YELLOW Pleural Fluid Appearance HAZY Pleural Fluid WBC 368 /uL Pleural Fluid RBC < 3000 /uL Pleural Fluid pH 7.49 7.3-7.4 Pleural Fluid Polynuclear WBCs % 32.8 % Pleural Fluid Mononuclear WBCs % 67.2 % Pleural Fluid Total Protein 1.9 g/dl Pleural Fluid LDH 128 IU Pleural Fluid Glucose 92 mg/dl Pleural Fluid Amylase 21 U/L Microbiology Results 01/29/18 Fungal Smear - Final, Resulted 01/29/18 Fungal Culture, Resulted Pending 01/29/18 Acid Fast Stain, Received Pending 01/29/18 Mycobacterial Culture, Received Pending 01/29/18 Gram Stain - Final, Resulted 01/29/18 Bacterial Culture, Resulted Pending
--- NOTE | 2018-01-29 12:06 | Pulmonology Progress Note ---
Pulmonary Progress Note Date of Service January 29, 2018. Attending Dr. Gregg Subjective Patient notes her overall breathing status is improved after the IPC placement and 700 cc of fluid drained: Objective Patient was sleeping in her room notably comfortable easily arousable to voice and noted some mild pleuritic chest discomfort but had notable decreased overall work of breathing after placement of the IPC and 700 cc of fluid drained : Admitted 01/19/2018 progressive dyspnea and on workup radiographs show a right lower lobe/right middle lobe opacification with bronchial obstruction: Vital signs: Patient was off oxygen when I walked into the room I checked her saturation and it was 93 % on room air Respiratory: Decreased breath sounds globally but notable dullness to percussion right lower lobe/ultrasound shows small multiple fluid pockets no access for thoracentesis appreciated Cardiac: S1-S2 4-6 systolic murmur best appreciated right upper sternal border as well as apex Abdomen: Positive bowel sounds soft nontender Extremities: No clubbing cyanosis or edema Thorax: IPC catheter in place no signs of infection/breakdown PmHx: Diastolic heart failure, rheumatic heart disease, mechanical AVR and MVR on Coumadin, hypertension, ongoing tobacco dependence, COPD, 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 RLL infiltrate: Bronchoscopy showed diffuse vasculitic changes within the bilateral lower lobes as well some mucus plugging bilaterally in external collapse in the left lower lobe. After the placement of her IPC the patient's CXR has dramatically improved. At this time I would like to repeat a high- resolution CT scan noncontrast for further evaluation of the right lower lobe. Bronchoscopic cytologic report does show numerous pigmented latent alveolar macrophages which are consistent with bleeding/diffuse alveolar hemorrhage which is a bronchoscopic diagnosis not seen via the BAL performed. Data Medications: Current Inpatient Medications Medications (Trade) Dose Ordered Sig/Shana Route Start Time Stop Time Status Last Admin Dose Admin Acetaminophen (Tylenol Tab) 650 mg Q4H PRN PO 01/19/18 20:15 02/18/18 20:14 Al Hydrox/Mg Hydrox/Simethicone (Maalox Max Susp) 15 ml Q4H PRN PO 01/19/18 20:15 02/18/18 20:14 Ondansetron HCl (Zofran Inj) 4 mg Q6H PRN IV 01/19/18 20:15 02/18/18 20:14 Nitroglycerin (Nitrostat Tab) 0.4 mg UD PRN SL 01/19/18 20:15 02/18/18 20:14 Polyethylene (Miralax Powder Packet) 17 gm DAILY PRN PO 01/19/18 20:15 02/18/18 20:14 01/25/18 08:55 17 GM Allopurinol (Zyloprim Tab) 100 mg QAM PO 01/20/18 09:00 02/19/18 08:59 01/29/18 09:05 100 MG Calcitriol (Rocaltrol Cap) 0.25 mcg MoTh@1400 PO 01/22/18 14:00 02/21/18 13:59 01/26/18 14:48 0.25 MCG Cyanocobalamin (Vitamin B-12 Tab) 1,000 mcg DAILY PO 01/20/18 09:00 02/19/18 08:59 01/29/18 09:05 1,000 MCG Folic Acid (Folvite Tab) 1 mg QAM PO 01/20/18 09:00 02/19/18 08:59 01/29/18 09:05 1 MG Gabapentin (Neurontin Cap) 100 mg HS PO 01/19/18 21:00 02/18/18 20:59 01/28/18 20:54 100 MG Guaifenesin (Organidin Nr Tab) 200 mg Q6 PRN PO 01/19/18 20:15 02/18/18 20:14 Hydralazine HCl (Apresoline Tab) 50 mg TID PO 01/19/18 21:00 02/18/18 20:59 01/29/18 09:04 50 MG Isosorbide Mononitrate (Imdur Ext Rel Tab) 60 mg QAM PO 01/20/18 09:00 02/19/18 08:59 01/29/18 09:06 60 MG Levothyroxine Sodium (Synthroid Tab) 25 mcg DAILYBB PO 01/20/18 06:00 02/19/18 05:59 01/29/18 05:42 25 MCG Metoprolol Tartrate (Lopressor Tab) 50 mg BID PO 01/19/18 22:00 02/18/18 21:59 01/29/18 09:08 50 MG Montelukast Sodium (Singulair Tab) 10 mg DAILY PO 01/20/18 09:00 02/19/18 08:59 01/29/18 09:04 10 MG Pantoprazole Sodium (Protonix Tab) 40 mg BID PO 01/19/18 22:00 02/18/18 21:59 01/29/18 09:07 40 MG Potassium Chloride (Klor-Con Tab) 20 meq BID PO 01/19/18 22:00 02/18/18 21:59 01/29/18 09:05 20 MEQ Ranitidine HCl (zANTac TAB) 300 mg HS PO 01/19/18 21:00 02/18/18 20:59 01/28/18 20:56 300 MG Albuterol (Ventolin Hfa Inhaler) 2 puffs Q4 PRN INH 01/20/18 10:30 02/19/18 10:29 Furosemide (Lasix Tab) 160 mg BID17 PO 01/21/18 10:00 02/20/18 09:59 Future hold 01/28/18 16:43 160 MG Ferrous Fumarate (Darío-Sequels Contr Rel Cap) 65 mg QAM PO 01/22/18 09:00 02/21/18 08:59 Future Hold 01/27/18 07:39 65 MG Levalbuterol (Xopenex 0.63 Mg/ 3 Ml Neb) 0.63 mg Q6R INH 01/21/18 15:00 02/20/18 14:59 01/29/18 07:06 0.63 MG Ipratropium [place] (Atrovent 0.02% 0.5MG/2.5ML Neb) 0.5 mg Q6R INH 01/21/18 15:00 02/20/18 14:59 01/29/18 07:06 0.5 MG Lactulose (Chronulac Syrup) 30 gm BID PRN PO 01/25/18 14:00 02/24/18 13:59 Bisacodyl (Dulcolax Supp) 10 mg DAILY PRN AR 01/25/18 14:00 02/24/18 13:59 01/25/18 21:42 10 MG Warfarin Sodium (Coumadin Tab) 5 mg DAILY@16 PO 01/26/18 16:00 02/25/18 15:59 Future hold 01/27/18 16:09 5 MG Heparin Sodium/ Dextrose 500 ml @ 18 mls/hr Q24H IV 01/26/18 11:00 02/25/18 10:59 Future hold 01/29/18 09:02 18 MLS/HR Tramadol HCl (Ultram Tab) 50 mg Q4H PRN PO 01/29/18 08:00 02/28/18 07:59 01/29/18 09:51 50 MG Warfarin Sodium (Coumadin Tab) 5 mg NOW ONCE PO 01/29/18 12:00 01/29/18 12:01 UNV Prednisone (PredniSONE TAB) 30 mg DAILY PO 01/30/18 09:00 02/22/18 08:59 UNV Vital Signs: Date Time Temp Pulse Resp B/P (MAP) Pulse Ox O2 Delivery O2 Flow Rate FiO2 01/29/18 11:29 36.7 73 16 107/49 (68) 96 Room Air 01/29/18 08:00 95 Nasal Cannula 2.0 01/29/18 07:08 76 16 97 Nasal Cannula 2.0 01/29/18 06:59 72 17 121/62 (81) 98 Nasal Cannula 2.0 01/29/18 04:10 37.0 84 16 121/53 (75) 98 Nasal Cannula 01/29/18 04:00 95 Nasal Cannula 2.0 40 01/29/18 01:56 78 16 97 Nasal Cannula 2.0 01/29/18 00:13 36.7 75 16 135/70 (91) 97 Room Air 01/29/18 00:00 95 Nasal Cannula 2.0 40 01/29/18 00:00 95 Nasal Cannula 2.0 01/28/18 20:10 37.0 92 22 126/51 (76) 95 Nasal Cannula 2.0 01/28/18 20:00 95 Nasal Cannula 2.0 01/28/18 19:03 83 16 98 Nasal Cannula 2.0 01/28/18 16:00 94 Nasal Cannula 2.0 01/28/18 15:33 36.9 90 20 116/54 (74) 94 Nasal Cannula 2.0 01/28/18 14:08 74 16 95 Nasal Cannula 2.0 Laboratory Results: Last 24 Hours Test 01/28/18 13:07 01/29/18 05:38 01/29/18 08:02 Activated Partial Thromboplast Time 51.6 SECONDS 27.1 SECONDS Partial Thromboplastin Ratio 2.0 1.0 White Blood Count 5.57 K/uL Red Blood Count 2.52 M/uL Hemoglobin 9.4 g/dL Hematocrit 27.4 % Mean Corpuscular Volume 108.7 fL Mean Corpuscular Hemoglobin 37.3 pg Mean Corpuscular Hemoglobin Concent 34.3 g/dl RDW Standard Deviation 60.7 fL RDW Coefficient of Variation 15.6 % Platelet Count 196 K/uL Mean Platelet Volume 10.6 fL Prothrombin Time 15.1 SECONDS Prothromb Time International Ratio 1.4 Sodium Level 136 mmol/L Potassium Level 3.9 mmol/L Chloride Level 93 mmol/L Carbon Dioxide Level 35 mmol/L Anion Gap 8.0 mmol/L Blood Urea Nitrogen 107 mg/dl Creatinine 3.05 mg/dl Est Creatinine Clear Calc Drug Dose 12.0 ml/min Estimated GFR () 16.3 Estimated GFR (Non- 14.1 BUN/Creatinine Ratio 35.0 Random Glucose 80 mg/dl Calcium Level 9.6 mg/dl Pleural Fluid Source RIGHT LUNG Pleural Fluid Color YELLOW Pleural Fluid Appearance HAZY Pleural Fluid WBC 368 /uL Pleural Fluid RBC < 3000 /uL Pleural Fluid pH 7.49 Pleural Fluid Polynuclear WBCs % 32.8 % Pleural Fluid Mononuclear WBCs % 67.2 % Pleural Fluid Total Protein 1.9 g/dl Pleural Fluid LDH 128 IU Pleural Fluid Glucose 92 mg/dl Pleural Fluid Amylase 21 U/L
[2018-01-29] MEDS ORDERED: WARFARIN SOD 5 MG TAB PO ONE (12:30)
[2018-01-29] MEDS: CALCITRIOL 0.25 MCG CAP PO SCH (13:20)
[2018-01-29] MEDS ORDERED: ALBUT/IPRATROP 3MG/0.5MG NEB 3 ML VIAL INH PRN (14:00)
--- NOTE | 2018-01-29 15:36 | DIAGNOSTIC IMAGING REPORT ---
(CHEST) THORAX WITHOUT CLINICAL HISTORY: 77 years-old Female presenting with Right lower lobe atelectasis. TECHNIQUE: Multidetector CT imaging of the chest was performed without the use of intravenous contrast. IV contrast: None. A dose lowering technique was used consistent with the principles of ALARA (as low as reasonably achievable). COMPARISON: 01/28/2018. CT DOSE (mGy.cm): The estimated cumulative dose is 183.75 mGy.cm. FINDINGS: Nurse Prn topogram: Cardiomegaly and median sternotomy wires. Prosthetic heart valves noted. On soft tissue windows, normal thyroid and thoracic inlet. No axillary, supraclavicular, or mediastinal lymphadenopathy. Evaluation of the mg limited without intravenous contrast. Atherosclerosis of the aorta. Multichamber enlargement of the heart. Postsurgical changes of mitral and aortic valve replacement. Coronary artery and mitral annular calcification. Interval placement of a right pleural drain, which terminates at the paramediastinal right mid lung. Significant interval decrease size of the right pleural effusion, which is now small. Associated soft tissue emphysema in the right lateral chest wall. Trace left pleural effusion. No pericardial effusion. Dense stool noted in the colon likely from prior contrast administration. Normal liver density. On lung windows, trace apical predominant emphysema. Mosaic attenuation suggest small airways disease. Vague nodular groundglass opacities evident at the apices. Smooth interlobular septal thickening also evident at the apices. Significant interval improved aeration of the right middle lobe, which was previously collapsed. Improved aeration of the superior segment of the right lower lobe with the remainder of the right lower lobe remaining collapsed. Persistent debris in the right middle lobe segmental bronchi though decreased debris and subsegmental right middle lobe bronchi evident. Decreased debris also noted in the superior segment bronchus in the right lower lobe though extensive debris remains in the right lower lobe bronchus and basilar segmental bronchi. Peribronchovascular consolidation in the left lower lobe is similar to prior. On bone windows, degenerative changes of the spine. IMPRESSION: 1. Decreased right pleural effusion status post placement of a right pleural drain, positioned at the paramediastinal right mid lung. 2. Improved aeration of the right middle lobe and superior segment of the right lower lobe. 3. Persistent extensive atelectasis in the remainder of the right lower lobe with extensive airway debris and segmental bronchi to the right middle and lower lobes. 4. Cardiomegaly with persistent congestive change/early pulmonary edema. 5. Postsurgical changes of aortic and mitral valve replacement. 6. Emphysema with suspected respiratory bronchiolitis/smoking related lung injury. Electronically signed by: Nguyễn Moran M.D. 01/29/2018 3:35 PM Dictated Date/Time: 01/29/2018 3:26 PM
[2018-01-29] MEDS: WARFARIN SOD 5 MG TAB PO SCH (16:07)
[2018-01-29] MEDS: IPRATROPIUM BROMIDE/ALBUTEROL respimat INH INH SCH ×2 (16:09→21:01)
[2018-01-29 17:10] LABS: PTT PATIENT 52.2 SECONDS (21.0-31.0)
[2018-01-29] MEDS: ACETAMINOPHEN 325 MG TAB PO PRN (18:50)
[2018-01-29] MEDS: RANITIDINE HCL 150 MG TAB PO SCH (21:01)
[2018-01-29] MEDS: GABAPENTIN 100 MG CAP PO SCH (21:03)
[2018-01-30] VITALS (8 sets, daily range): BP systolic 113–153; BP diastolic 53–73; PULSE 74–85; TEMP 36.5–36.8; O2SAT 95–100
[2018-01-30 06:01] LABS: HEMATOCRIT 29.3 % (37-47); HEMOGLOBIN 9.6 g/dL (12.0-16.0)
[2018-01-30] MEDS: LEVOTHYROXINE 25 MCG TAB PO SCH (06:19)
[2018-01-30 06:20] LABS: INR 1.5 (0.9-1.1)
[2018-01-30 06:27] LABS: PTT PATIENT 47.3 SECONDS (21.0-31.0)
[2018-01-30] MEDS: ACETAMINOPHEN 325 MG TAB PO PRN ×2 (06:30→14:36)
[2018-01-30 06:34] LABS: CALCIUM 9.2 mg/dl (8.5-10.1); CREATININE 2.98 mg/dl (0.60-1.20); POTASSIUM 4.2 mmol/L (3.5-5.1)
--- NOTE | 2018-01-30 06:56 | Nephrology Progress Note ---
Nephrology Progress Note Date of Service: January 30, 2018. Subjective 77 yo female with ckd stage 4 with afib-rate controlled and copd who actively smokes who presented with volume overload and diuresed well. pt had loculated effusion requiring a pleurx catheter. pt overall breathing much better. currently on heparin drip. Objective Date Time Temp Pulse Resp B/P (MAP) Pulse Ox O2 Delivery O2 Flow Rate FiO2 01/30/18 04:00 95 Nasal Cannula 2.0 01/30/18 03:25 36.6 76 18 125/61 (82) 97 Nasal Cannula 2.0 01/30/18 00:00 95 Nasal Cannula 2.0 01/29/18 23:16 36.5 81 20 130/52 (78) 99 Nasal Cannula 2.0 01/29/18 20:00 95 Nasal Cannula 2.0 01/29/18 19:11 36.7 85 19 133/54 (80) 94 Nasal Cannula 2.0 01/29/18 16:00 95 Nasal Cannula 2.0 01/29/18 15:41 36.9 82 19 124/62 (82) 89 Room Air 01/29/18 12:00 93 Room Air 01/29/18 11:29 36.7 73 16 107/49 (68) 96 Room Air 01/29/18 08:00 95 Nasal Cannula 2.0 01/29/18 07:08 76 16 97 Nasal Cannula 2.0 01/29/18 06:59 72 17 121/62 (81) 98 Nasal Cannula 2.0 Physical Exam: General-aaox3 Eyes-no scleral icterus ENT-mmm Neck-supple Lungs-decreased at right base, +pleurx catheter Heart-rate controlled Abdomen-bs+ s/nt/nd Extremities-no edema Neuro-nonfocal Current Inpatient Medications Medications (Trade) Dose Ordered Sig/Shana Route Start Time Stop Time Status Last Admin Dose Admin Acetaminophen (Tylenol Tab) 650 mg Q4H PRN PO 01/19/18 20:15 02/18/18 20:14 01/30/18 06:30 650 MG Al Hydrox/Mg Hydrox/Simethicone (Maalox Max Susp) 15 ml Q4H PRN PO 01/19/18 20:15 02/18/18 20:14 01/29/18 16:06 15 ML Ondansetron HCl (Zofran Inj) 4 mg Q6H PRN IV 01/19/18 20:15 02/18/18 20:14 Nitroglycerin (Nitrostat Tab) 0.4 mg UD PRN SL 01/19/18 20:15 02/18/18 20:14 Polyethylene (Miralax Powder Packet) 17 gm DAILY PRN PO 01/19/18 20:15 02/18/18 20:14 01/25/18 08:55 17 GM Allopurinol (Zyloprim Tab) 100 mg QAM PO 01/20/18 09:00 02/19/18 08:59 01/29/18 09:05 100 MG Calcitriol (Rocaltrol Cap) 0.25 mcg MoTh@1400 PO 01/22/18 14:00 02/21/18 13:59 01/29/18 13:20 0.25 MCG Cyanocobalamin (Vitamin B-12 Tab) 1,000 mcg DAILY PO 01/20/18 09:00 02/19/18 08:59 01/29/18 09:05 1,000 MCG Folic Acid (Folvite Tab) 1 mg QAM PO 01/20/18 09:00 02/19/18 08:59 01/29/18 09:05 1 MG Gabapentin (Neurontin Cap) 100 mg HS PO 01/19/18 21:00 02/18/18 20:59 01/29/18 21:03 100 MG Guaifenesin (Organidin Nr Tab) 200 mg Q6 PRN PO 01/19/18 20:15 02/18/18 20:14 Hydralazine HCl (Apresoline Tab) 50 mg TID PO 01/19/18 21:00 02/18/18 20:59 01/29/18 21:03 50 MG Isosorbide Mononitrate (Imdur Ext Rel Tab) 60 mg QAM PO 01/20/18 09:00 02/19/18 08:59 01/29/18 09:06 60 MG Levothyroxine Sodium (Synthroid Tab) 25 mcg DAILYBB PO 01/20/18 06:00 02/19/18 05:59 01/30/18 06:19 25 MCG Metoprolol Tartrate (Lopressor Tab) 50 mg BID PO 01/19/18 22:00 02/18/18 21:59 01/29/18 21:02 50 MG Montelukast Sodium (Singulair Tab) 10 mg DAILY PO 01/20/18 09:00 02/19/18 08:59 01/29/18 09:04 10 MG Pantoprazole Sodium (Protonix Tab) 40 mg BID PO 01/19/18 22:00 02/18/18 21:59 01/29/18 21:01 40 MG Potassium Chloride (Klor-Con Tab) 20 meq BID PO 01/19/18 22:00 02/18/18 21:59 01/29/18 21:02 20 MEQ Ranitidine HCl (zANTac TAB) 300 mg HS PO 01/19/18 21:00 02/18/18 20:59 01/29/18 21:01 300 MG Albuterol (Ventolin Hfa Inhaler) 2 puffs Q4 PRN INH 01/20/18 10:30 02/19/18 10:29 Furosemide (Lasix Tab) 160 mg BID17 PO 01/21/18 10:00 02/20/18 09:59 Future hold 01/29/18 16:08 160 MG Ferrous Fumarate (Darío-Sequels Contr Rel Cap) 65 mg QAM PO 01/22/18 09:00 02/21/18 08:59 Future Hold 01/27/18 07:39 65 MG Lactulose (Chronulac Syrup) 30 gm BID PRN PO 01/25/18 14:00 02/24/18 13:59 Bisacodyl (Dulcolax Supp) 10 mg DAILY PRN AL 01/25/18 14:00 02/24/18 13:59 01/25/18 21:42 10 MG Warfarin Sodium (Coumadin Tab) 5 mg DAILY@16 PO 01/26/18 16:00 02/25/18 15:59 Future hold 01/29/18 16:07 5 MG Heparin Sodium/ Dextrose 500 ml @ 18 mls/hr Q24H IV 01/26/18 11:00 02/25/18 10:59 Future hold 01/29/18 21:27 18 MLS/HR Tramadol HCl (Ultram Tab) 50 mg Q4H PRN PO 01/29/18 08:00 02/28/18 07:59 01/29/18 21:00 50 MG Prednisone (PredniSONE TAB) 30 mg DAILY PO 01/30/18 09:00 02/22/18 08:59 Albuterol/ Ipratropium (Combivent Respimat Inh) 1 puffs QID INH 01/29/18 17:00 02/28/18 16:59 01/29/18 21:01 1 PUFFS Albuterol/ Ipratropium (Duoneb) 3 ml Q2R PRN INH 01/29/18 14:00 02/28/18 13:59 Last 24 Hours Test 01/29/18 08:02 01/29/18 16:25 01/30/18 05:36 Pleural Fluid Source RIGHT LUNG Pleural Fluid Color YELLOW Pleural Fluid Appearance HAZY Pleural Fluid WBC 368 /uL Pleural Fluid RBC < 3000 /uL Pleural Fluid pH 7.49 Pleural Fluid Polynuclear WBCs % 32.8 % Pleural Fluid Mononuclear WBCs % 67.2 % Pleural Fluid Total Protein 1.9 g/dl Pleural Fluid LDH 128 IU Pleural Fluid Glucose 92 mg/dl Pleural Fluid Amylase 21 U/L Activated Partial Thromboplast Time 52.2 SECONDS 47.3 SECONDS Partial Thromboplastin Ratio 2.0 1.8 Hemoglobin 9.6 g/dL Hematocrit 29.3 % Prothrombin Time 15.4 SECONDS Prothromb Time International Ratio 1.5 Sodium Level 135 mmol/L Potassium Level 4.2 mmol/L Chloride Level 93 mmol/L Carbon Dioxide Level 36 mmol/L Anion Gap 6.0 mmol/L Blood Urea Nitrogen 105 mg/dl Creatinine 2.98 mg/dl Est Creatinine Clear Calc Drug Dose 12.5 ml/min Estimated GFR () 16.8 Estimated GFR (Non- 14.5 BUN/Creatinine Ratio 35.2 Random Glucose 95 mg/dl Calcium Level 9.2 mg/dl Date/Time Source Procedure Growth Status 01/29/18 08:02 Pleural Fluid (Thoracentesis) Right Fungal Smear - Final Resulted 01/29/18 08:02 Pleural Fluid (Thoracentesis) Right Fungal Culture Pending Resulted 01/29/18 08:02 Pleural Fluid (Thoracentesis) Right Acid Fast Stain Pending Received 01/29/18 08:02 Pleural Fluid (Thoracentesis) Right Mycobacterial Culture Pending Received 01/29/18 08:02 Pleural Fluid (Thoracentesis) Right Gram Stain - Final Resulted 01/29/18 08:02 Pleural Fluid (Thoracentesis) Right Bacterial Culture Pending Resulted Assessment & Plan ckd stage 4-creatinine has ranged from 2.6 to 3.1 which is acceptable. not uremic. no role for dialysis at this time. greatly appreciate help in optimizing lung status. currently with pleurx catheter and heparin drip while awaiting inr to be therapeutic again. volume status much improved. continue current oral diuretic with k supplementation. k is good. iron deficiency/anemia of ckd-iron sat did improve up to 16%. hg levels are stable in the 9s.
--- NOTE | 2018-01-30 07:23 | DIAGNOSTIC IMAGING REPORT ---
CHEST ONE VIEW PORTABLE CLINICAL HISTORY: 77 years-old Female presenting with effusion . TECHNIQUE: Portable upright AP view of the chest was obtained. COMPARISON: 01/29/2018. FINDINGS: Large bore right pleural drain positioned at the paramediastinal right mid lung. Median sternotomy wires and prosthetic aortic and mitral valves noted. Atherosclerosis of aortic arch. Cardiac silhouette is moderately enlarged. Pulmonary vascular prominence. Lungs and pleural spaces clear. Osseous structures normal. Upper abdomen normal. IMPRESSION: 1. Cardiomegaly with persistent volume overload, unchanged. No sana pulmonary edema. 2. Small bilateral pleural effusions, unchanged. 3. Postsurgical changes of aortic and mitral valve replacement. Electronically signed by: Nguyễn Moran M.D. 01/30/2018 7:22 AM Dictated Date/Time: 01/30/2018 7:18 AM
[2018-01-30] MEDS: UMECLIDINIUM-VILANTEROL (ANORO) INH SCH (08:14)
[2018-01-30] MEDS: IPRATROPIUM BROMIDE/ALBUTEROL respimat INH INH SCH ×4 (08:14→21:17)
[2018-01-30] MEDS: ISOSORBIDE MONONITRATE 60 MG TABCR PO SCH (08:17)
[2018-01-30] MEDS: ALLOPURINOL 100 MG TAB PO SCH (08:17)
[2018-01-30] MEDS: PANTOprazole SOD 40 MG TAB PO SCH ×2 (08:18→21:16)
[2018-01-30] MEDS: MONTELUKAST SOD 10 MG TAB PO SCH (08:18)
[2018-01-30] MEDS: METOPROLOL TARTRATE 50 MG TAB PO SCH ×2 (08:19→21:16)
[2018-01-30] MEDS: CYANOCOBALAMIN 500 MCG TAB (VIT B-12) PO SCH (08:20)
[2018-01-30] MEDS: FUROSEMIDE 40 MG TAB PO SCH ×2 (08:20→17:01)
[2018-01-30] MEDS: POTASSIUM CHLORIDE 20 MEQ TABCR PO SCH ×2 (08:21→21:17)
--- NOTE | 2018-01-30 09:45 | Pulmonology Progress Note ---
Pulmonary Progress Note Date of Service January 30, 2018. Attending Dr. Gregg Subjective Patient doing well notes the IPC has improved her respiratory status/decreased work of breathing: She denies: Fever, chills, productive cough, and only having intermittent pleurisy at this time Objective Patient was awake sitting up in bed showing no signs of respiratory insufficiency and has had 120 cc of fluid the last 24 hours after IPC placement Admitted 01/19/2018 progressive dyspnea and on workup radiographs show a right lower lobe/right middle lobe opacification with bronchial obstruction: Vital signs: Stable on 2 liters nasal cannula Respiratory: Decreased breath sounds with dullness to percussion right lower lobe Cardiac: S1-S2 4-6 systolic murmur best appreciated right upper sternal border as well as apex Abdomen: Positive bowel sounds soft nontender Extremities: No clubbing cyanosis or edema Thorax: IPC catheter in place no signs of infection/breakdown PmHx: Diastolic heart failure, rheumatic heart disease, mechanical AVR and MVR on Coumadin, hypertension, ongoing tobacco dependence, COPD, 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 RLL infiltrate: Patient's post IVC catheter high-resolution CT scan does not show a dramatic improvement in her right lower lobe infiltrative process. Along with this and the significant vascularity appreciated via bronchoscopy leading into the lower lobe I believe this patient is still risk for possible in lying malignancy. This time we should wait for the cytologic analysis from the patient's pleural fluid but if this is negative I believe we need to move forward with bronchoscopic transbronchial biopsies of the right lower lobe. 2. Pleural fluid: Patient only putting out 120 cc of pleural fluid at this time and labs suggest transudative effusion. Cytologic analysis still pending. Data Medications: Current Inpatient Medications Medications (Trade) Dose Ordered Sig/Shana Route Start Time Stop Time Status Last Admin Dose Admin Acetaminophen (Tylenol Tab) 650 mg Q4H PRN PO 01/19/18 20:15 02/18/18 20:14 01/30/18 06:30 650 MG Al Hydrox/Mg Hydrox/Simethicone (Maalox Max Susp) 15 ml Q4H PRN PO 01/19/18 20:15 02/18/18 20:14 01/29/18 16:06 15 ML Ondansetron HCl (Zofran Inj) 4 mg Q6H PRN IV 01/19/18 20:15 02/18/18 20:14 Nitroglycerin (Nitrostat Tab) 0.4 mg UD PRN SL 01/19/18 20:15 02/18/18 20:14 Polyethylene (Miralax Powder Packet) 17 gm DAILY PRN PO 01/19/18 20:15 02/18/18 20:14 01/25/18 08:55 17 GM Allopurinol (Zyloprim Tab) 100 mg QAM PO 01/20/18 09:00 02/19/18 08:59 01/30/18 08:17 100 MG Calcitriol (Rocaltrol Cap) 0.25 mcg MoTh@1400 PO 01/22/18 14:00 02/21/18 13:59 01/29/18 13:20 0.25 MCG Cyanocobalamin (Vitamin B-12 Tab) 1,000 mcg DAILY PO 01/20/18 09:00 02/19/18 08:59 01/30/18 08:20 1,000 MCG Folic Acid (Folvite Tab) 1 mg QAM PO 01/20/18 09:00 02/19/18 08:59 01/30/18 08:19 1 MG Gabapentin (Neurontin Cap) 100 mg HS PO 01/19/18 21:00 02/18/18 20:59 01/29/18 21:03 100 MG Guaifenesin (Organidin Nr Tab) 200 mg Q6 PRN PO 01/19/18 20:15 02/18/18 20:14 Hydralazine HCl (Apresoline Tab) 50 mg TID PO 01/19/18 21:00 02/18/18 20:59 01/30/18 08:16 50 MG Isosorbide Mononitrate (Imdur Ext Rel Tab) 60 mg QAM PO 01/20/18 09:00 02/19/18 08:59 01/30/18 08:17 60 MG Levothyroxine Sodium (Synthroid Tab) 25 mcg DAILYBB PO 01/20/18 06:00 02/19/18 05:59 01/30/18 06:19 25 MCG Metoprolol Tartrate (Lopressor Tab) 50 mg BID PO 4/30/18 22:00 02/18/18 21:59 01/30/18 08:19 50 MG Montelukast Sodium (Singulair Tab) 10 mg DAILY PO 01/20/18 09:00 02/19/18 08:59 01/30/18 08:18 10 MG Pantoprazole Sodium (Protonix Tab) 40 mg BID PO 01/19/18 22:00 02/18/18 21:59 01/30/18 08:18 40 MG Potassium Chloride (Klor-Con Tab) 20 meq BID PO 01/19/18 22:00 02/18/18 21:59 01/30/18 08:21 20 MEQ Ranitidine HCl (zANTac TAB) 300 mg HS PO 01/19/18 21:00 02/18/18 20:59 01/29/18 21:01 300 MG Albuterol (Ventolin Hfa Inhaler) 2 puffs Q4 PRN INH 01/20/18 10:30 02/19/18 10:29 Furosemide (Lasix Tab) 160 mg BID17 PO 01/21/18 10:00 02/20/18 09:59 Future hold 01/30/18 08:20 160 MG Ferrous Fumarate (Darío-Sequels Contr Rel Cap) 65 mg QAM PO 01/22/18 09:00 02/21/18 08:59 Future Hold 01/27/18 07:39 65 MG Lactulose (Chronulac Syrup) 30 gm BID PRN PO 01/25/18 14:00 02/24/18 13:59 Bisacodyl (Dulcolax Supp) 10 mg DAILY PRN OH 01/25/18 14:00 02/24/18 13:59 01/25/18 21:42 10 MG Warfarin Sodium (Coumadin Tab) 5 mg DAILY@16 PO 01/26/18 16:00 02/25/18 15:59 Future hold 01/29/18 16:07 5 MG Heparin Sodium/ Dextrose 500 ml @ 18 mls/hr Q24H IV 01/26/18 11:00 02/25/18 10:59 Future hold 01/29/18 21:27 18 MLS/HR Tramadol HCl (Ultram Tab) 50 mg Q4H PRN PO 01/29/18 08:00 02/28/18 07:59 01/29/18 21:00 50 MG Prednisone (PredniSONE TAB) 30 mg DAILY PO 01/30/18 09:00 02/22/18 08:59 01/30/18 08:19 30 MG Albuterol/ Ipratropium (Combivent Respimat Inh) 1 puffs QID INH 01/29/18 17:00 02/28/18 16:59 01/30/18 08:14 1 PUFFS Albuterol/ Ipratropium (Duoneb) 3 ml Q2R PRN INH 01/29/18 14:00 02/28/18 13:59 Vital Signs: Date Time Temp Pulse Resp B/P (MAP) Pulse Ox O2 Delivery O2 Flow Rate FiO2 01/30/18 06:40 36.5 75 22 146/66 (92) 100 Nasal Cannula 2.0 01/30/18 04:00 95 Nasal Cannula 2.0 01/30/18 03:25 36.6 76 18 125/61 (82) 97 Nasal Cannula 2.0 01/30/18 00:00 95 Nasal Cannula 2.0 01/29/18 23:16 36.5 81 20 130/52 (78) 99 Nasal Cannula 2.0 01/29/18 20:00 95 Nasal Cannula 2.0 01/29/18 19:11 36.7 85 19 133/54 (80) 94 Nasal Cannula 2.0 01/29/18 16:00 95 Nasal Cannula 2.0 01/29/18 15:41 36.9 82 19 124/62 (82) 89 Room Air 01/29/18 12:00 93 Room Air 01/29/18 11:29 36.7 73 16 107/49 (68) 96 Room Air Laboratory Results: Last 24 Hours Test 01/29/18 16:25 01/30/18 05:36 Activated Partial Thromboplast Time 52.2 SECONDS 47.3 SECONDS Partial Thromboplastin Ratio 2.0 1.8 Hemoglobin 9.6 g/dL Hematocrit 29.3 % Prothrombin Time 15.4 SECONDS Prothromb Time International Ratio 1.5 Sodium Level 135 mmol/L Potassium Level 4.2 mmol/L Chloride Level 93 mmol/L Carbon Dioxide Level 36 mmol/L Anion Gap 6.0 mmol/L Blood Urea Nitrogen 105 mg/dl Creatinine 2.98 mg/dl Est Creatinine Clear Calc Drug Dose 12.5 ml/min Estimated GFR () 16.8 Estimated GFR (Non- 14.5 BUN/Creatinine Ratio 35.2 Random Glucose 95 mg/dl Calcium Level 9.2 mg/dl
[2018-01-30] MEDS ORDERED: WARFARIN SOD 2.5 MG TAB PO ONE (11:00)
--- NOTE | 2018-01-30 11:09 | Progress Note ---
Internal Med Progress Note Date of Service: January 30, 2018. Provider Documentation: SUBJECTIVE: Seen and examined at bedside No significant change from yesterday symptomatically Reports discomfort at the site of PleurX Catheter Denies Chest pain, SOB, dizziness, cough On Heparin ggt OBJECTIVE: Vital Signs-as noted below Physical Exam: General Appearance:Moderately built and nourished, no apparent distress Head: normocephalic, Atraumatic Eyes: normal inspection, EOMI, PERRL Neck: supple, Trachea midline Respiratory/Chest: Normal breath sounds, CTA Cardiovascular: S1, S2, No murmur Abdomen/GI:Soft, Non tender, Bowel sounds present Extremities/Musculoskelatal:normal inspection, no edema Neurologic/Psych:AAOX3, grossly no focal neurological deficits Skin: normal color, warm Lab data as noted below. ASSESSMENT & PLAN: Patient is a 77 yr female with PMH of diastolic CHF, S/P mechanical aortic valve replacement, S/P mitral valve replacement, Chronic respiratory failure on oxygen 2-3 L by nasal cannula, COPD, hypertension, CKD IV presented with shortness of breath Acute on chronic diastolic CHF Secondary to accidentally taking reduced dose of her usual Lasix usually on Lasix 160 mg PO BID S/P IV diuretics continue PO Lasix 160mg BID Euvolemic Appreciate Nephrology and cardiology Input Loculated Pleural Effusion Right Middle and Lower Lobe Collapse: Secondary to diffuse mucous plugs with bronchiectatic changes bilateral lower lobes S/P bronchoscopy on January 26, 2018: showed diffuse erythema, mucus plugging S/P : Insertion of right PleurX catheter under ultrasound guidance Pathology from Bronchial Washing:No malignant cells Pathology from Appreciate Pulmonary/CT surgery Input Video swallow eval: No aspiration Saturating well on room air Repeat CT: Improved aeration of R middle lobe and superior segment of the right lower lobe. Persistent extensive atelectasis in the remainder of the right lower lobe with extensive airway debris and segmental bronchi to the right middle and lower lobes. Cytologic Analysis: pending May need bronchoscopic transbronchial biopsies of the right lower lobe to R/O malignancy as per Pulmonology COPD Exacerbation Chronic Oxygen dependency: 2L at baseline possible Acute Bronchitis Continue prednisone taper course Nebs q4h completed Doxycycline 7 day course continue Ellipta Acute Kidney Injury on CKD IV: monitor renal function On diuretics Nephrology consulted, appreciate recommendations Discussed with Advised to follow up as outpatient Cr levels better HTN: Continue hydralazine, Imdur, Lopressor. S/P Mechanical Mitral and Aortic Valve replacement Coumadin held for bronchoscopy INR 1.5 today Goal INR is 2.5-3.5 continue heparin ggt, coumadin Will give 7.5 mg coumadin today Atrial Fibrillation: continue Lopressor On heparin bridge plus Coumadin Tobacco use smoking cessation counseling. DVT Px: On heparin drip Coumadin Disposition: PT OT eval Lives at home with On 2 L oxygen by nasal cannula at home Anticipate discharge to home with home health services Vital Signs: Date Time Temp Pulse Resp B/P (MAP) Pulse Ox O2 Delivery O2 Flow Rate FiO2 01/30/18 08:00 Nasal Cannula 2.0 01/30/18 06:40 36.5 75 22 146/66 (92) 100 Nasal Cannula 2.0 01/30/18 04:00 95 Nasal Cannula 2.0 01/30/18 03:25 36.6 76 18 125/61 (82) 97 Nasal Cannula 2.0 01/30/18 00:00 95 Nasal Cannula 2.0 01/29/18 23:16 36.5 81 20 130/52 (78) 99 Nasal Cannula 2.0 01/29/18 20:00 95 Nasal Cannula 2.0 01/29/18 19:11 36.7 85 19 133/54 (80) 94 Nasal Cannula 2.0 01/29/18 16:00 95 Nasal Cannula 2.0 01/29/18 15:41 36.9 82 19 124/62 (82) 89 Room Air 01/29/18 12:00 93 Room Air 01/29/18 11:29 36.7 73 16 107/49 (68) 96 Room Air Lab Results: Results Past 24 Hours Test 01/29/18 16:25 01/30/18 05:36 Range/Units Activated Partial Thromboplast Time 52.2 47.3 21.0-31.0 SECONDS Partial Thromboplastin Ratio 2.0 1.8 Hemoglobin 9.6 12.0-16.0 g/dL Hematocrit 29.3 37-47 % Prothrombin Time 15.4 9.0-12.0 SECONDS Prothromb Time International Ratio 1.5 0.9-1.1 Sodium Level 135 136-145 mmol/L Potassium Level 4.2 3.5-5.1 mmol/L Chloride Level 93 98-107 mmol/L Carbon Dioxide Level 36 21-32 mmol/L Anion Gap 6.0 3-11 mmol/L Blood Urea Nitrogen 105 7-18 mg/dl Creatinine 2.98 0.60-1.20 mg/dl Est Creatinine Clear Calc Drug Dose 12.5 ml/min Estimated GFR () 16.8 Estimated GFR (Non- 14.5 BUN/Creatinine Ratio 35.2 10-20 Random Glucose 95 70-99 mg/dl Calcium Level 9.2 8.5-10.1 mg/dl
--- NOTE | 2018-01-30 13:48 | SURGERY PROGRESS NOTE ---
DATE: 01/30/2018 Ms. Goodson was seen today. I think she looks very good. She still drops her sats. On room air for several minutes she dropped down to 87 to 89%. She does not appear short of breath. She has been walking more. Subjectively, she is definitely better. Her fluid is benign. This morning she got drained for about 120 mL. I would continue draining her daily until I see her back in the office.
[2018-01-30] MEDS: WARFARIN SOD 5 MG TAB PO SCH (17:03)
[2018-01-30] MEDS: GABAPENTIN 100 MG CAP PO SCH (21:16)
[2018-01-30] MEDS: RANITIDINE HCL 150 MG TAB PO SCH (21:16)
[2018-01-31] VITALS (7 sets, daily range): BP systolic 102–139; BP diastolic 42–67; PULSE 70–85; TEMP 36.5–37; O2SAT 92–99
[2018-01-31] MEDS: HEPARIN 25,000 UNIT/500ML D5W 500 ML IV SCH (04:51)
[2018-01-31] MEDS: LEVOTHYROXINE 25 MCG TAB PO SCH (05:46)
[2018-01-31] MEDS: ACETAMINOPHEN 325 MG TAB PO PRN ×2 (05:46→13:42)
[2018-01-31 05:54] LABS: HEMATOCRIT 30.1 % (37-47); HEMOGLOBIN 9.9 g/dL (12.0-16.0); MEAN CELL VOLUME 109.5 fL (80-100); MEAN CORPUSCULAR HGB CONC 32.9 g/dl (32-36); MEAN PLATELET VOLUME 10.5 fL (7.4-10.4); PLATELET COUNT 224 K/uL (130-400); RED CELL DISTRIBUTION WIDTH CV 15.4 % (11.5-14.5); RED CELL DISTRIBUTION WIDTH SD 61.2 fL (36.4-46.3); WHITE BLOOD COUNT 7.49 K/uL (4.8-10.8)
[2018-01-31 06:16] LABS: CALCIUM 9.5 mg/dl (8.5-10.1); CREATININE 3.02 mg/dl (0.60-1.20); POTASSIUM 4.2 mmol/L (3.5-5.1)
[2018-01-31 06:20] LABS: PTT PATIENT 54.4 SECONDS (21.0-31.0)
[2018-01-31] MEDS: IPRATROPIUM BROMIDE/ALBUTEROL respimat INH INH SCH ×4 (08:30→20:13)
[2018-01-31] MEDS: UMECLIDINIUM-VILANTEROL (ANORO) INH SCH (08:30)
[2018-01-31] MEDS: FUROSEMIDE 40 MG TAB PO SCH ×2 (08:32→16:52)
[2018-01-31] MEDS: ISOSORBIDE MONONITRATE 60 MG TABCR PO SCH (08:32)
[2018-01-31] MEDS: POTASSIUM CHLORIDE 20 MEQ TABCR PO SCH ×2 (08:32→20:15)
[2018-01-31] MEDS: METOPROLOL TARTRATE 50 MG TAB PO SCH ×2 (08:33→20:15)
[2018-01-31] MEDS: MONTELUKAST SOD 10 MG TAB PO SCH (08:33)
[2018-01-31] MEDS: PANTOprazole SOD 40 MG TAB PO SCH ×2 (08:33→20:16)
[2018-01-31] MEDS: ALLOPURINOL 100 MG TAB PO SCH (08:34)
[2018-01-31] MEDS: CYANOCOBALAMIN 500 MCG TAB (VIT B-12) PO SCH (08:34)
--- NOTE | 2018-01-31 09:39 | SURGERY PROGRESS NOTE ---
DATE: 01/31/2018 Ms. Goodson is seen today. On room air today, she is 94%. This is at rest. She still has a few rhonchi, but she is moving air well. Her drainage is down considerably in her PleurX catheter. The site is clean. Her aeration is definitely better. Ms. 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 She has a very interesting history of this with unusual movements of her hands and feet but she got over this although it is interesting to note. From our standpoint, we will follow her up as an outpatient for her PleurX catheter. The drainage is down today, but I would leave it in for the next few days and I have to pull it out in the office. [email or web address]
--- NOTE | 2018-01-31 10:06 | Progress Note ---
Internal Med Progress Note Date of Service: January 31, 2018. Provider Documentation: SUBJECTIVE: Seen and examined at bedside Doing well today Saturating well on room air No symptoms Denies Chest pain, SOB, dizziness, cough On Heparin ggt OBJECTIVE: Vital Signs-as noted below Physical Exam: General Appearance:Moderately built and nourished, no apparent distress Head: normocephalic, Atraumatic Eyes: normal inspection, EOMI, PERRL Neck: supple, Trachea midline Respiratory/Chest: Normal breath sounds, CTA Cardiovascular: S1, S2, No murmur Abdomen/GI:Soft, Non tender, Bowel sounds present Extremities/Musculoskelatal:normal inspection, no edema Neurologic/Psych:AAOX3, grossly no focal neurological deficits Skin: normal color, warm Lab data as noted below. ASSESSMENT & PLAN: Patient is a 77 yr female with PMH of diastolic CHF, S/P mechanical aortic valve replacement, S/P mitral valve replacement, Chronic respiratory failure on oxygen 2-3 L by nasal cannula, COPD, hypertension, CKD IV presented with shortness of breath Acute on chronic diastolic CHF Secondary to accidentally taking reduced dose of her usual Lasix usually on Lasix 160 mg PO BID S/P IV diuretics continue PO Lasix 160mg BID Euvolemic Appreciate Nephrology and cardiology Input Loculated Pleural Effusion Right Middle and Lower Lobe Collapse: Secondary to diffuse mucous plugs with bronchiectatic changes bilateral lower lobes S/P bronchoscopy on January 26, 2018: showed diffuse erythema, mucus plugging S/P : Insertion of right PleurX catheter under ultrasound guidance Pathology from Bronchial Washing:No malignant cells Pathology from Pleural fluid: No malignant cells Appreciate Pulmonary/CT surgery Input Video swallow eval: No aspiration Saturating well on room air Repeat CT: Improved aeration of R middle lobe and superior segment of the right lower lobe. Persistent extensive atelectasis in the remainder of the right lower lobe with extensive airway debris and segmental bronchi to the right middle and lower lobes. Cytologic Analysis:No malignant cells May need bronchoscopic transbronchial biopsies of the right lower lobe to R/O malignancy as per Pulmonology Needs follow up with CT surgery for removal of PleurX catheter as outpatient COPD Exacerbation Chronic Oxygen dependency: 2L at baseline possible Acute Bronchitis Continue prednisone taper course Nebs q4h completed Doxycycline 7 day course continue Ellipta Acute Kidney Injury on CKD IV: monitor renal function On diuretics Nephrology consulted, appreciate recommendations Discussed with Advised to follow up as outpatient Cr levels stable HTN: Continue hydralazine, Imdur, Lopressor. S/P Mechanical Mitral and Aortic Valve replacement Coumadin held for bronchoscopy INR 2.0 today Goal INR is 2.5-3.5 continue heparin ggt, coumadin Continue coumadin Atrial Fibrillation: continue Lopressor On heparin bridge plus Coumadin Tobacco use smoking cessation counseling. DVT Px: On heparin drip Coumadin Disposition: PT OT eval Lives at home with On 2 L oxygen by nasal cannula at home Anticipate discharge to home with home health services Vital Signs: Date Time Temp Pulse Resp B/P (MAP) Pulse Ox O2 Delivery O2 Flow Rate FiO2 01/31/18 07:20 36.6 70 18 122/61 (81) 99 Nasal Cannula 2.0 01/31/18 04:00 Nasal Cannula 2.0 01/31/18 03:50 36.7 79 17 139/46 (77) 96 Nasal Cannula 2.0 01/30/18 23:59 Nasal Cannula 2.0 01/30/18 23:50 36.6 85 18 132/53 (79) 95 Room Air 01/30/18 20:00 Nasal Cannula 2.0 01/30/18 19:30 36.8 76 20 113/61 (78) 98 Nasal Cannula 2.0 100 01/30/18 16:00 Nasal Cannula 2.0 01/30/18 15:16 36.6 75 20 124/65 (84) 97 Nasal Cannula 2.0 01/30/18 12:00 Nasal Cannula 2.0 01/30/18 11:39 36.8 74 18 153/73 (99) 99 Lab Results: Results Past 24 Hours Test 01/31/18 05:41 Range/Units White Blood Count 7.49 4.8-10.8 K/uL Red Blood Count 2.75 4.2-5.4 M/uL Hemoglobin 9.9 12.0-16.0 g/dL Hematocrit 30.1 37-47 % Mean Corpuscular Volume 109.5 80-100 fL Mean Corpuscular Hemoglobin 36.0 25-34 pg Mean Corpuscular Hemoglobin Concent 32.9 32-36 g/dl RDW Standard Deviation 61.2 36.4-46.3 fL RDW Coefficient of Variation 15.4 11.5-14.5 % Platelet Count 224 130-400 K/uL Mean Platelet Volume 10.5 7.4-10.4 fL Prothrombin Time 20.3 9.0-12.0 SECONDS Prothromb Time International Ratio 2.0 0.9-1.1 Activated Partial Thromboplast Time 54.4 21.0-31.0 SECONDS Partial Thromboplastin Ratio 2.1 Sodium Level 134 136-145 mmol/L Potassium Level 4.2 3.5-5.1 mmol/L Chloride Level 93 98-107 mmol/L Carbon Dioxide Level 35 21-32 mmol/L Anion Gap 6.0 3-11 mmol/L Blood Urea Nitrogen 108 7-18 mg/dl Creatinine 3.02 0.60-1.20 mg/dl Est Creatinine Clear Calc Drug Dose 11.9 ml/min Estimated GFR () 16.5 Estimated GFR (Non- 14.3 BUN/Creatinine Ratio 35.8 10-20 Random Glucose 95 70-99 mg/dl Calcium Level 9.5 8.5-10.1 mg/dl
--- NOTE | 2018-01-31 10:12 | PULMONARY PROGRESS NOTE ---
DATE: 01/31/2018 SUBJECTIVE: The patient is doing well but very anxious to get home. She has been in the hospital 12 days. She was walking around on room air with sats between 89% and 90%. The drainage the past 24 hours from her PleurX was less than 120 mL. She has no pain from the catheter. She is not producing any phlegm. For historical context, she was admitted on 01/19/2018 with severe dyspnea. I was consulted at that time and she had right middle and lower lobe collapse with pleural effusion. Dr. Gregg took her to the bronchoscopy suite and was able to evacuate a great deal of secretions and mucus from the right tracheobronchial tree, but he had significant concern although not seeing an endobronchial lesion, it is just by the appearance of a neoplastic process. At the time of this dictation, we are waiting on the cytologic examination of the pleural fluid, although Dr. Gregg comments stated that the fluid appeared transudative in nature. The patient clearly has problems with chronic renal disease and valvular heart disease as well as diastolic dysfunction and chronic heart failure. PHYSICAL EXAMINATION: CURRENT VITAL SIGNS: Temperature 36.6, pulse 70 irregular, respiratory rate 18, blood pressure 122/61, O2 sats 99% on 2 L. SKIN: Without lesion. HEENT: Atraumatic, normocephalic. PERRLA. EOMI. Conjunctivae pale. Sclerae nonicteric. Fundi poorly visualized. NECK: Neck veins are not distended at 45 degrees. No evidence of adenopathy in supraclavicular or infraclavicular areas. LUNGS: Decreased breath sounds, right base but generally clearer than when I last auscultated her lung exam. CARDIAC: Irregular rhythm, a grade 2/6, REGINA heard at the lower left sternal border with crisp mechanical valve sounds. No S3. ABDOMEN: Soft, scaphoid. EXTREMITIES: Trace pedal edema. No clubbing. Peripheral cyanosis. NEUROLOGIC: Intact. No lateralizing signs. LABORATORY DATA: Chest x-ray yesterday shows cardiomegaly with persistent volume overload. Small bilateral pleural effusions and postsurgical changes. Chest CT done on 01/29/2018 shows decreased right pleural effusion with pleural catheter in place. Improved aeration of right middle lobe and superior segment, right lower lobe but persistent extensive atelectasis in remainder of right lower lobe and changes of pulmonary edema. Cultures from bronchial washings were negative. Cytology from the bronchial washings showed pigment laden alveolar macrophages, no malignant cells, and the pleural fluid showed no malignant cells. H and H 9.9 and 30.1. BUN 108, creatinine 3.0. PTT INR 2.1. PT INR 2.0. OVERALL ASSESSMENT: A 77-year-old with complex medical history, chronic renal failure, and valvular heart disease with diastolic heart failure/chronic with chronic obstructive pulmonary disease and right middle and lower lobe atelectasis with endobronchial obstruction from debris and mucus and mucoid impaction. Cannot rule out an underlying malignancy. At this point in time, I think patient is stable and it is my view that she should be converted over to oral anticoagulation and preparations made for discharge with followup as an outpatient. She may require repeat bronchoscopic evaluation at a later date and certainly if she has an endobronchial neoplasm or a neoplastic process involving the right lower lobe given her comorbidities, little progress will be made with any treatment options as far as I am concerned. Will discuss further with primary care service and the patient, but I would favor discharge with a PleurX catheter in place and home health and then further workup as an outpatient.
[2018-01-31] MEDS ORDERED: WARFARIN SOD 2.5 MG TAB PO ONE (10:30)
[2018-01-31] MEDS: WARFARIN SOD 5 MG TAB PO SCH (16:52)
[2018-01-31] MEDS: GABAPENTIN 100 MG CAP PO SCH (20:15)
[2018-01-31] MEDS: RANITIDINE HCL 150 MG TAB PO SCH (20:16)
[2018-02-01 04:00] VITALS: BP 120/39; PULSE 72; TEMP 36.6; O2SAT 95
[2018-02-01] MEDS: LEVOTHYROXINE 25 MCG TAB PO SCH (05:49)
[2018-02-01] MEDS: ACETAMINOPHEN 325 MG TAB PO PRN (05:50)
[2018-02-01 06:39] VITALS: BP 113/55; PULSE 85; TEMP 37; O2SAT 93
[2018-02-01 06:40] LABS: HEMATOCRIT 32.9 % (37-47); HEMOGLOBIN 10.8 g/dL (12.0-16.0); MEAN CELL VOLUME 109.7 fL (80-100); MEAN CORPUSCULAR HGB CONC 32.8 g/dl (32-36); MEAN PLATELET VOLUME 11.3 fL (7.4-10.4); PLATELET COUNT 259 K/uL (130-400); RED CELL DISTRIBUTION WIDTH CV 15.6 % (11.5-14.5); RED CELL DISTRIBUTION WIDTH SD 62.1 fL (36.4-46.3); WHITE BLOOD COUNT 8.55 K/uL (4.8-10.8)
[2018-02-01 06:44] LABS: CALCIUM 9.5 mg/dl (8.5-10.1); CREATININE 3.37 mg/dl (0.60-1.20); POTASSIUM 4.2 mmol/L (3.5-5.1)
--- NOTE | 2018-02-01 08:11 | DIAGNOSTIC IMAGING REPORT ---
CHEST ONE VIEW PORTABLE HISTORY: right pleurx catheter COMPARISON: None. FINDINGS: Right-sided pleural drainage catheter remains unchanged in position. No definite pneumothorax. The heart remains enlarged. Aortic and mitral valve prostheses are noted.] Basilar densities have improved. Trace right pleural effusion has also improved. A left pleural effusion and left basilar densities remain unchanged. Mild congestive change persists. IMPRESSION: 1. Right sided pleural drainage catheter remains unchanged in position. 2. Improvement in the trace right pleural effusion with near complete resolution of the right basilar densities. 3. Small left pleural effusion and left basilar densities persist. Electronically signed by: Froy Laguerre M.D. 02/01/2018 8:10 AM Dictated Date/Time: 02/01/2018 8:08 AM
[2018-02-01] MEDS: UMECLIDINIUM-VILANTEROL (ANORO) INH SCH (08:35)
[2018-02-01] MEDS: IPRATROPIUM BROMIDE/ALBUTEROL respimat INH INH SCH (08:35)
[2018-02-01] MEDS: ISOSORBIDE MONONITRATE 60 MG TABCR PO SCH (08:36)
[2018-02-01] MEDS: POTASSIUM CHLORIDE 20 MEQ TABCR PO SCH (08:37)
[2018-02-01] MEDS: MONTELUKAST SOD 10 MG TAB PO SCH (08:37)
[2018-02-01] MEDS: METOPROLOL TARTRATE 50 MG TAB PO SCH (08:37)
[2018-02-01] MEDS: PANTOprazole SOD 40 MG TAB PO SCH (08:37)
[2018-02-01] MEDS: FUROSEMIDE 40 MG TAB PO SCH (08:37)
[2018-02-01] MEDS: ALLOPURINOL 100 MG TAB PO SCH (08:38)
[2018-02-01] MEDS: CYANOCOBALAMIN 500 MCG TAB (VIT B-12) PO SCH (08:38)
--- NOTE | 2018-02-01 08:54 | SURGERY PROGRESS NOTE ---
DATE: 02/01/2018 Ms. Goodson was seen today. She looks great. She has been on room air for 24 hours, which she is very happy about. We only put out 50 mL of serous fluid today. This is all benign. She ambulated well yesterday. Her PleurX site is clean. She does have decreased breath sounds in both lung bases, but has no wheezing. Her x-ray today looks very good. She looks like she has total resolution of the fluid on the right. At this point, I would not do anything further except get her INR therapeutic, which appears to be at 3.0 today and allow her to be discharged. I will follow her up in a week or so in the office.
--- NOTE | 2018-02-01 09:41 | Progress Note ---
Internal Med Progress Note Date of Service: February 01, 2018. Provider Documentation: SUBJECTIVE: Seen and examined at bedside No complaints Eager to get discharged Saturating well on room air Denies Chest pain, SOB, dizziness, cough Off Heparin ggt, INR:3.0 OBJECTIVE: Vital Signs-as noted below Physical Exam: General Appearance:Moderately built and nourished, no apparent distress Head: normocephalic, Atraumatic Eyes: normal inspection, EOMI, PERRL Neck: supple, Trachea midline Respiratory/Chest: Normal breath sounds, CTA Cardiovascular: S1, S2, No murmur Abdomen/GI:Soft, Non tender, Bowel sounds present Extremities/Musculoskelatal:normal inspection, no edema Neurologic/Psych:AAOX3, grossly no focal neurological deficits Skin: normal color, warm Lab data as noted below. ASSESSMENT & PLAN: Patient is a 77 yr female with PMH of diastolic CHF, S/P mechanical aortic valve replacement, S/P mitral valve replacement, Chronic respiratory failure on oxygen 2-3 L by nasal cannula, COPD, hypertension, CKD IV presented with shortness of breath Acute on chronic diastolic CHF Secondary to accidentally taking reduced dose of her usual Lasix usually on Lasix 160 mg PO BID S/P IV diuretics continue PO Lasix 160mg BID Euvolemic Appreciate Nephrology and cardiology Input Loculated Pleural Effusion Right Middle and Lower Lobe Collapse: Secondary to diffuse mucous plugs with bronchiectatic changes bilateral lower lobes S/P bronchoscopy on January 26, 2018: showed diffuse erythema, mucus plugging S/P : Insertion of right PleurX catheter under ultrasound guidance Pathology from Bronchial Washing:No malignant cells Pathology from Pleural fluid: No malignant cells Appreciate Pulmonary/CT surgery Input Video swallow eval: No aspiration Saturating well on room air Repeat CT: Improved aeration of R middle lobe and superior segment of the right lower lobe. Persistent extensive atelectasis in the remainder of the right lower lobe with extensive airway debris and segmental bronchi to the right middle and lower lobes. Cytologic Analysis:No malignant cells Pleural Fluid: Staph species: Likely contamination. Discussed with Pulm. JAMEL as outpatient May need bronchoscopic transbronchial biopsies of the right lower lobe to R/O malignancy as per Pulmonology as outpatient Needs follow up with CT surgery for removal of PleurX catheter as outpatient Home Health to drain PleurX as outpatient COPD Exacerbation Chronic Oxygen dependency: 2L at baseline possible Acute Bronchitis Continue prednisone taper course Nebs q4h completed Doxycycline 7 day course continue Ellipta Acute Kidney Injury on CKD IV: monitor renal function On diuretics Nephrology consulted, appreciate recommendations Discussed with Advised to follow up as outpatient Cr levels fairly stable HTN: Continue hydralazine, Imdur, Lopressor. S/P Mechanical Mitral and Aortic Valve replacement Coumadin held for bronchoscopy INR 3.0 today Goal INR is 2.5-3.5 DC Heparin ggt continue coumadin Atrial Fibrillation: continue Lopressor INR therapeutic On Coumadin Tobacco use smoking cessation counseling. DVT Px: On Coumadin Disposition: PT OT eval Plan to discharge home with Home Health Follow up with your PCP in 1 week as advised Follow up with your Job Specification Writer Jorge Myers PA-C in 2 weeks Follow up with your Knitter Operator with blood work (Basic metabolic panel ) in 1 week Follow up with your CT surgeon for management of your PleurX Catheter Follow up with your Electronic Development Technician in 2 weeks as advised Follow up with your Coumadin clinic for management of your PT/INR and coumadin dosing Complete the prednisone course as prescribed Start taking Prednisone 20mg daily for 3 days then 10mg daily for 3 days and stop Your Pleural fluid culture is pending: Follow up with your PCP/Electronic Development Technician with results Quit smoking as advised Seek immediate medical attention if your symptoms reoccur or worsen Vital Signs: Date Time Temp Pulse Resp B/P (MAP) Pulse Ox O2 Delivery O2 Flow Rate FiO2 02/01/18 06:39 37.0 85 17 113/55 (74) 93 Room Air 02/01/18 04:00 Room Air 02/01/18 04:00 36.6 72 16 120/39 (66) 95 Room Air 01/31/18 23:59 Room Air 01/31/18 23:26 36.5 78 18 139/67 (91) 95 Room Air 01/31/18 22:30 129/64 (85) 01/31/18 20:00 Room Air 01/31/18 19:29 36.5 85 22 107/42 (63) 92 Room Air 01/31/18 16:00 Room Air 01/31/18 15:41 36.8 76 22 102/54 (70) 93 Room Air 01/31/18 12:16 37.0 72 18 108/54 (72) 96 01/31/18 12:00 Room Air Lab Results: Results Past 24 Hours Test 02/01/18 05:55 Range/Units White Blood Count 8.55 4.8-10.8 K/uL Red Blood Count 3.00 4.2-5.4 M/uL Hemoglobin 10.8 12.0-16.0 g/dL Hematocrit 32.9 37-47 % Mean Corpuscular Volume 109.7 80-100 fL Mean Corpuscular Hemoglobin 36.0 25-34 pg Mean Corpuscular Hemoglobin Concent 32.8 32-36 g/dl RDW Standard Deviation 62.1 36.4-46.3 fL RDW Coefficient of Variation 15.6 11.5-14.5 % Platelet Count 259 130-400 K/uL Mean Platelet Volume 11.3 7.4-10.4 fL Prothrombin Time 30.6 9.0-12.0 SECONDS Prothromb Time International Ratio 3.0 0.9-1.1 Activated Partial Thromboplast Time 56.0 21.0-31.0 SECONDS Partial Thromboplastin Ratio 2.2 Sodium Level 136 136-145 mmol/L Potassium Level 4.2 3.5-5.1 mmol/L Chloride Level 91 98-107 mmol/L Carbon Dioxide Level 36 21-32 mmol/L Anion Gap 9.0 3-11 mmol/L Blood Urea Nitrogen 117 7-18 mg/dl Creatinine 3.37 0.60-1.20 mg/dl Est Creatinine Clear Calc Drug Dose 10.6 ml/min Estimated GFR () 14.5 Estimated GFR (Non- 12.5 BUN/Creatinine Ratio 34.6 10-20 Random Glucose 88 70-99 mg/dl Calcium Level 9.5 8.5-10.1 mg/dl
[2018-02-01] MEDS ORDERED: PRED10TA PO (09:44)
--- NOTE | 2018-02-01 09:46 | Discharge Summary ---
Discharge Summary Date of Service February 01, 2018. Discharge Summary Admission Date: Jan 19, 2018 at 20:14 Discharge Date: February 01, 2018 Discharge Disposition: Home with services Principal Diagnosis: CHF Exacerbation, Pleural effusion, JUAN C, COPD exacerbation Procedures: Video swallow: 1. No aspiration identified. 2. Please see the speech pathologist report for detailed findings and recommendations. CT Chest: 1. Moderate right and small left pleural effusion. Right lower lobe collapse and subtotal right middle lobe collapse with extensive fluid/debris which opacifies the right lower lobe bronchial tree and partially fills the right middle lobe bronchi. No central obstructing mass on this unenhanced CT. Right lower lobe and right middle lobe opacity favors atelectasis. Pneumonia with parapneumonic effusion could appear similar although is considered less likely. No CT evidence for malignancy within the chest however a follow-up chest CT in one month to ensure resolution is recommended. 2. Mild pulmonary edema. 3. Moderate cardiomegaly. 4. Trace perihepatic ascites. S/P Bronchoscopy, PleurX Catheter Placement Consultations: CT surgery, Pulmonology, Nephrology, Cardiology, Pending Studies/Follow-Up: Follow up with your PCP in 1 week as advised Follow up with your Online Project Manager Jorge Myers PA-C in 2 weeks Follow up with your Leasing Professional with blood work (Basic metabolic panel ) in 1 week Follow up with your CT surgeon for management of your PleurX Catheter Follow up with your Music Professor in 2 weeks as advised Follow up with your Coumadin clinic for management of your PT/INR and coumadin dosing Complete the prednisone course as prescribed Start taking Prednisone 20mg daily for 3 days then 10mg daily for 3 days and stop Your Pleural fluid culture is pending: Follow up with your PCP/Music Professor with results Quit smoking as advised Seek immediate medical attention if your symptoms reoccur or worsen Medication Reconciliation New Medications: Prednisone Tab (Prednisone) 10 Mg Tab 10 MG PO UD for 6 Days, #9 TAB Start taking prednisone 20mg daily for 3 days, then 10mg daily for 3 days and stop Continued Medications: Albuterol Hfa (Ventolin Hfa) 200 Puffs/21234 Mcg Aers 2 PUFFS INH Q4 PRN for SOB/Wheezing, #1 INHALER Allopurinol (Zyloprim) 100 Mg Tab 100 MG PO QAM, TAB Calcitriol (Rocaltrol Cap) 0.25 Mcg Cap 1 CAP PO 2XWK for 30 Days, CAP 5 Refills fri, - takes in the afternoon Cyanocobalamin (Vitamin B-12 1000 Mcg) 1,000 Mcg Tab 1 TAB PO afternoon for 30 Days, TAB 2 Refills Folic Acid (Folic Acid) 1 Mg Tab 1 MG PO QAM Furosemide (Lasix) 80 Mg Tab 160 MG PO BID, TAB Gabapentin (Neurontin) 100 Mg Cap 100 MG PO HS, CAP Guaifenesin (Guaifenesin) 200 Mg Tab 1 TAB PO UD PRN for prn Guaifenesin (Organ-I Nr) 200 Mg Tab 200 MG PO Q8 PRN for Cough Home O2 Therapy (Oxygen) Gas 2 LITERS NA CONTINOUS, BTL Hydralazine Hcl (Apresoline) 50 Mg Tab 50 MG PO TID Iron-Vitamin C (Vitron-C) 1 Tab Tab 1 TAB PO QAM Isosorbide Mononitrate Ext Rel (Imdur Ext Rel) 60 Mg Ertab 60 MG PO QAM, TAB Levothyroxine Sodium (Synthroid) 25 Mcg Tab 25 MCG PO QAM, TAB Metoprolol Tartrate (Lopressor) 50 Mg Tab 50 MG PO BID, TAB Montelukast Sodium (Montelukast Sodium) 10 Mg Tab 1 TAB PO late afternoon, TAB 5 Refills Nitroglycerin (Nitrostat) 0.4 Mg Tab 0.4 MG UT PRN, BTL Pantoprazole (Protonix) 40 Mg Tab 40 MG PO BID Potassium Ext Rel (Klor-Con) 20 Meq Tabcr 20 MEQ PO BID, TAB takes one in am and takes one in early afternoon Ranitidine (Zantac) 300 Mg Tab 300 MG PO HS, TAB Umeclidinium-Vilanterol (Anoro Ellipta 62.5-25 Mcg/INH) 1 Aer Aer 1 PUFFS INH DAILY, #1 Warfarin Sod (Coumadin) 2.5 Mg Tab 1 DOSE PO UD for 30 Days, TAB 3 Refills UD BY ANTICOAGULATION CLINIC 2.5MG EVERY FRIDAY/FRIDAY/FRIDAY/FRIDAY. 3.75 MG EVERY FRIDAY/FRIDAY/FRIDAY OF 01/19/18. Admission Information HPI (per Admitting provider): CHIEF COMPLAINT: Shortness of breath. HISTORY OF PRESENT ILLNESS: This is a 77-year-old female with past medical history significant for chronic diastolic heart failure, with a preserved EF of 60%, rheumatic heart disease, status post mechanical AVR and MVR, on Coumadin, hypertension, COPD, ongoing tobacco abuse, hyperlipidemia, chronic kidney disease currently stage IV, baseline creatinine around 2.6, multiple admissions for the congestive heart failure and currently she is on Lasix 160 mg p.o. b.i.d., last admission was in September. She was doing okay, but a few days ago, she had the medication mixed up. She got a new prescription for Lasix, and instead of getting 160 mg b.i.d., she was taking 80 mg b.i.d., and since yesterday, she was getting short of rate, and she lives alone When daughter went to see her, she was having shortness of breath, and she was brought in here, and also, she was having increasing lower extremity edema over the last couple of days, and chest x-ray showed congestion, and we are called for admission. The patient says she is compliant with her salt intake because of chronic kidney disease and CHF. She denies any headaches, no dizziness, no blurred vision, no earache. No runny nose. She has some cough with some phlegm, which is chronic for her. Denies any sore throat. There is no difficulty swallowing. She has some chest tightness. No fever, no chills, no nausea, no vomiting, no abdominal pain. Appetite is not that great. Normal bowel and bladder movements. No blood in the stools, no blood in the urine, no burning micturition. No skin rash. Lower extremity edema present. The patient says she does not use pillows or elevation of bed in the night, and she usually frequently gets up in the night from short of breath, and as per daughter, she is noncompliant with elevation of the head while sleeping. Physical Exam (per Admitting): PHYSICAL EXAMINATION: GENERAL: The patient is of moderate build. The patient is not in distress. VITAL SIGNS: Temperature 37, pulse 80, respiratory rate 20, blood pressure 133/64, oxygen saturation 94% on 4 L. HEENT: No pallor, no icterus. Pupils equal, round, reactive. NECK: No JVD, no neck masses, no carotid bruits. CARDIOVASCULAR SYSTEM: S1 and S2, regular rate and rhythm, no murmur, no gallop. RESPIRATORY SYSTEM: Normal AP diameter. No accessory muscle use. Bibasilar crackles present. No wheezing. ABDOMEN: Soft, bowel sounds present, nontender, no distention. CENTRAL NERVOUS SYSTEM: Cranial nerves II through XII grossly intact. Nonfocal. EXTREMITIES: Lower extremity edema +2 present. No erythema seen. Hospital Course Patient is a 77 yr female with PMH of diastolic CHF, S/P mechanical aortic valve replacement, S/P mitral valve replacement, Chronic respiratory failure on oxygen 2-3 L by nasal cannula, COPD, hypertension, CKD IV presented with shortness of breath Acute on chronic diastolic CHF Secondary to accidentally taking reduced dose of her usual Lasix usually on Lasix 160 mg PO BID S/P IV diuretics continue PO Lasix 160mg BID Euvolemic Appreciate Nephrology and cardiology Input Loculated Pleural Effusion Right Middle and Lower Lobe Collapse: Secondary to diffuse mucous plugs with bronchiectatic changes bilateral lower lobes S/P bronchoscopy on January 26, 2018: showed diffuse erythema, mucus plugging S/P : Insertion of right PleurX catheter under ultrasound guidance Pathology from Bronchial Washing:No malignant cells Pathology from Pleural fluid: No malignant cells Appreciate Pulmonary/CT surgery Input Video swallow eval: No aspiration Saturating well on room air Repeat CT: Improved aeration of R middle lobe and superior segment of the right lower lobe. Persistent extensive atelectasis in the remainder of the right lower lobe with extensive airway debris and segmental bronchi to the right middle and lower lobes. Cytologic Analysis:No malignant cells Pleural Fluid: Staph species: Likely contamination. Discussed with Pulm. JAMEL as outpatient May need bronchoscopic transbronchial biopsies of the right lower lobe to R/O malignancy as per Pulmonology as outpatient Needs follow up with CT surgery for removal of PleurX catheter as outpatient Home Health to drain PleurX as outpatient COPD Exacerbation Chronic Oxygen dependency: 2L at baseline possible Acute Bronchitis Continue prednisone taper course Nebs q4h completed Doxycycline 7 day course continue Ellipta Acute Kidney Injury on CKD IV: monitor renal function On diuretics Nephrology consulted, appreciate recommendations Discussed with Advised to follow up as outpatient Cr levels fairly stable HTN: Continue hydralazine, Imdur, Lopressor. S/P Mechanical Mitral and Aortic Valve replacement Coumadin held for bronchoscopy INR 3.0 today Goal INR is 2.5-3.5 DC Heparin ggt continue coumadin Atrial Fibrillation: continue Lopressor INR therapeutic On Coumadin Tobacco use smoking cessation counseling. DVT Px: On Coumadin Disposition: PT OT eval Plan to discharge home with Home Health Follow up with your PCP in 1 week as advised Follow up with your Online Project Manager Jorge Myers PA-C in 2 weeks Follow up with your Leasing Professional with blood work (Basic metabolic panel ) in 1 week Follow up with your CT surgeon for management of your PleurX Catheter Follow up with your Music Professor in 2 weeks as advised Follow up with your Coumadin clinic for management of your PT/INR and coumadin dosing Complete the prednisone course as prescribed Start taking Prednisone 20mg daily for 3 days then 10mg daily for 3 days and stop Your Pleural fluid culture is pending: Follow up with your PCP/Music Professor with results Quit smoking as advised Seek immediate medical attention if your symptoms reoccur or worsen Total time spent on discharge = 38 minutes This includes examination of the patient, discharge planning, medication reconciliation, and communication with other providers. Discharge Instructions Discharge Instructions Date of Service February 01, 2018. Admission Reason for Admission: Chf Exacerbation Discharge Discharge Diagnosis / Problem: CHF Exacerbation, Pleural effusion, JUAN C, COPD exacerbation Discharge Goals Goal(s): Decrease discomfort, Improve function Activity Recommendations Activity Limitations: per Instructions/Follow-up section Lifting Limitations: gradually increase as tolerated Exercise/Sports Limitations: gradually increase as tolerated . Instructions / Follow-Up Instructions / Follow-Up Follow up with your PCP in 1 week as advised Follow up with your Online Project Manager Jorge Myers PA-C in 2 weeks Follow up with your Leasing Professional with blood work (Basic metabolic panel ) in 1 week Follow up with your CT surgeon for management of your PleurX Catheter Follow up with your Music Professor in 2 weeks as advised Follow up with your Coumadin clinic for management of your PT/INR and coumadin dosing Complete the prednisone course as prescribed Start taking Prednisone 20mg daily for 3 days then 10mg daily for 3 days and stop Your Pleural fluid culture is pending: Follow up with your PCP/Music Professor with results Quit smoking as advised Seek immediate medical attention if your symptoms reoccur or worsen Current Hospital Diet Patient's current hospital diet: AHA Diet (Heart Healthy) Discharge Diet Recommended Diet: AHA Diet (Heart Healthy) Fluid Restriction: 1500 ml (6 cups) Procedures Procedures Performed: BRONCHOSCOPY Pending Studies Studies pending at discharge: yes List of pending studies: Pleural fluid cultures Medical Emergencies . Who to Call and When: Medical Emergencies: If at any time you feel your situation is an emergency, please call 911 immediately. . Non-Emergent Contact Non-Emergency issues call your: Primary Care Provider, Online Project Manager, Leasing Professional, Music Professor, Surgeon Call Non-Emergent contact if: you have a fever, your pain is not controlled, your pain is worsening, your pain is unusual for you, your pain is concerning you, wound has increased drainage, wound has increased redness, wound has increased pain, you have any medication questions Seek immediate medical attention if your symptoms reoccur or worsen . . "Provider Documentation" section prepared by Gregory Mustafa. .
--- NOTE | 2018-02-01 10:03 | PULMONARY PROGRESS NOTE ---
DATE: 02/01/2018 Pulmonary medicine progress note. SUBJECTIVE: Patient looks quite stable and very anxious to go home. She is on room air with adequate saturations, but she has desaturated with ambulation. The pleural fluid which is transudative in nature is decreasing each day and now down to approximately 15 mL this morning. I do not auscultate any wheezing and I believe at this point in time she can go home on oral anticoagulant therapy. I would do a 2-step to see what her O2 requirements are but believe she is on O2 therapy at home, both at night and during the day. Certainly would have her maintain oxygen at night and with exertion if she demonstrates desaturations during the 2-step. IMPRESSION: My impression after looking at her films is that we are continue to see improvement in that right lower lobe and right middle lobe atelectasis that we are not dealing with a neoplasm and appeared well and may be necessary at a later date to repeat the bronchoscopic evaluation. I do not believe patient needs to remain in the hospital at this point in time and I would discharge her today with home health evaluating the drainage and PleurX catheter and the catheter can be removed as an outpatient by Dr. May. I will be happy to see her in a week or two as an outpatient as well.
[2018-02-01 10:24] VITALS: BP 113/55; PULSE 85; TEMP 37; O2SAT 93
--- NOTE | 2018-02-04 12:51 | EDITING REQUIRED CODING QUERY ---
CODING QUERY To promote full compliance with coding requirements relating to patient care, provider participation is requested in all cases of nurse transplant uncertainty. Please assist us with the question(s) below: Coding Question(s): Bronchoscopy procedure report states BAL was only performed on the left lower lung lobe however the following progress notes state BAL was performed on bilateral lower lobes. Please clarify below. Physician's Response(s): There is no inconsistency between the bronchoscopy report and the follow-up in patient notes. The in-patient notes only talk about bilateral lower lobe infiltrative patterns. They do not state bilateral bronchial washings were performed. Thank you Liya Klein Principal Diagnosis: "_that condition established after study, to be chiefly responsible for occasioning the admission of the patient to the hospital for care." Co-Existing Principal Diagnosis: "_when two or more diagnoses equally meet the criteria for principal diagnosis as determined by the circumstances of admission, diagnostic work up, and/or therapy provided, and the Alphabetic Index, Tabular List, or another coding guideline does not provide sequencing direction, any one of the diagnoses may be sequenced first." "When the physician has documented what appears to be a current diagnosis in the body of the record, but has not included the diagnosis in the final diagnostic statement, the physician should be asked whether the diagnosis should be added." (Source Coding [facility] 2 QTR90. p3-4)
== END 2018-02-01 11:04 | disposition home health service (06) | DRG 981 ==
LOC: EDBD 18:17 → C.EDB 18:18 → C.2T 20:14 → ENRESERV 20:23
PROVIDERS: ADMIT Internal Medicine; ATTEND Internal Medicine
PROC: 0BJK8ZZ Inspection of Right Lung, Via Natural or Artificial Opening Endoscopic (ICD-10-PCS; principal; 2018-01-26 07:45)
PROC: 0B9J8ZZ Drainage of Left Lower Lung Lobe, Via Natural or Artificial Opening Endoscopic (ICD-10-PCS; principal; 2018-01-26 07:45)
PROC: 0W9930Z Drainage of Right Pleural Cavity with Drainage Device, Percutaneous Approach (ICD-10-PCS; 2018-01-29)
DX: I13.0 Hypertensive heart and chronic kidney disease with heart failure and stage 1 through stage 4 chronic kidney disease, or unspecified chronic kidney disease (principal); I50.33 Acute on chronic diastolic (congestive) heart failure; J96.20 Acute and chronic respiratory failure, unspecified whether with hypoxia or hypercapnia; N18.4 Chronic kidney disease, stage 4 (severe); N17.9 Acute kidney failure, unspecified; J44.1 Chronic obstructive pulmonary disease with (acute) exacerbation; J44.0 Chronic obstructive pulmonary disease with (acute) lower respiratory infection; J90 Pleural effusion, not elsewhere classified; J98.11 Atelectasis; Z91.138 Patient's unintentional underdosing of medication regimen for other reason; Z99.81 Dependence on supplemental oxygen; F17.210 Nicotine dependence, cigarettes, uncomplicated; J20.9 Acute bronchitis, unspecified; D50.9 Iron deficiency anemia, unspecified; I48.2 Chronic atrial fibrillation; K21.9 Gastro-esophageal reflux disease without esophagitis; D63.1 Anemia in chronic kidney disease; E89.0 Postprocedural hypothyroidism; Z95.2 Presence of prosthetic heart valve; Z86.79 Personal history of other diseases of the circulatory system; Z79.01 Long term (current) use of anticoagulants; Z79.899 Other long term (current) drug therapy; Z88.8 Allergy status to other drugs, medicaments and biological substances; Z96.643 Presence of artificial hip joint, bilateral; Z90.710 Acquired absence of both cervix and uterus; Z82.5 Family history of asthma and other chronic lower respiratory diseases; Z82.3 Family history of stroke; Z83.79 Family history of other diseases of the digestive system; Z81.8 Family history of other mental and behavioral disorders

== ENCOUNTER → 2018-02-09 | Outpatient (CLI) | payer OTHER ==
[~2018-02-09] MED LIST changes: -DICL1GEL12 TOP; +FURO80TA63 PO; +GUAI1TAB PO; -OXYC-57 PO; +UMEC1AER INH; +VNTHFA/IN INH
--- NOTE | 2018-02-09 14:44 | DIAGNOSTIC IMAGING REPORT ---
CHEST 2 VIEWS ROUTINE CLINICAL HISTORY: 77 years-old Female presenting with J90 Pleural [id number]. TECHNIQUE: PA and lateral views of the chest were obtained. COMPARISON: 02/01/2018. FINDINGS: Large bore right pleural drain remains positioned at the right mid paramediastinal lung. Median sternotomy wires and prosthetic aortic and mitral valves noted. Atherosclerosis of aortic arch. Cardiac silhouette enlarged. Double density along the right heart border suggests left atrial enlargement. Lungs are hyperinflated. Coarse lung markings. Resolution of left basilar opacity with improved aeration. Blunting of the posterior costophrenic angles may relate to hyperinflation or indicate trace pleural effusions. No pneumothorax. Osseous structures normal. Upper abdomen normal. IMPRESSION: 1. Significantly improved aeration of the left lung base. 2. Blunting of the bilateral posterior costophrenic angles may relate to hyperinflation or indicate trace pleural effusions. No large effusion with the right pleural drain remaining in place. 3. No pneumothorax 4. Emphysema. 5. Cardiac megaly. Electronically signed by: Nguyễn Moran M.D. 02/09/2018 2:43 PM Dictated Date/Time: 02/09/2018 2:39 PM
== END | disposition home or self-care (01) ==
LOC: C.RAD 14:20
PROVIDERS: ATTEND Surgery
DX: R91.8 Other nonspecific abnormal finding of lung field (principal); J43.9 Emphysema, unspecified

== ENCOUNTER 2018-04-14 19:37 | Inpatient (IN) | payer OTHER ==
[~2018-04-14] VITALS: Ht 157.5 cm; Wt 51.8 kg
[~2018-04-14 19:37] MED LIST changes: -FERRTAB18 PO; -FLV1 PO; -FURO80TA63 PO; -GUAI1TAB PO; -ISOS60TA25 PO; -PANT40TA PO
[2018-04-14] MEDS ORDERED: FURO80TA63 PO (20:05)
[2018-04-14] MEDS ORDERED: PANT40TA PO (20:11)
[2018-04-14] MEDS ORDERED: FERRTAB18 PO (20:11)
[2018-04-14] MEDS ORDERED: ISOS60TA25 PO (20:11)
[2018-04-14] MEDS ORDERED: FLV1 PO (20:11)
[2018-04-14] MEDS ORDERED: GUAI1TAB PO (20:17)
[2018-04-14 20:40] LABS: BASO % 0.2 %; BASO ABS # 0.01 K/uL (0-0.2); EOS % 3.6 %; EOS ABS # 0.22 K/uL (0-0.5); HEMATOCRIT 34.8 % (37-47); HEMOGLOBIN 10.9 g/dL (12.0-16.0); IG# 0.01 K/uL (0.00-0.02); LYMPH % 13.8 %; LYMPH ABS # 0.84 K/uL (1.2-3.4); MEAN CELL VOLUME 108.4 fL (80-100); MEAN CORPUSCULAR HGB CONC 31.3 g/dl (32-36); MONO % 6.6 %; NEUT % 75.6 %; NEUT ABS # 4.59 K/uL (1.4-6.5); PLATELET COUNT 217 K/uL (130-400); RED CELL DISTRIBUTION WIDTH CV 20.1 % (11.5-14.5); RED CELL DISTRIBUTION WIDTH SD 72.5 fL (36.4-46.3); WHITE BLOOD COUNT 6.07 K/uL (4.8-10.8)
[2018-04-14 20:51] LABS: ISTAT IONIZED CALCIUM 1.16 mmol/l (1.12-1.32); ISTAT POTASSIUM 4.3 mEq/L (3.3-5.0)
[2018-04-14 21:09] LABS: ALBUMIN 3.6 gm/dl (3.4-5.0); CALCIUM 9.3 mg/dl (8.5-10.1); CREATININE 5.1 mg/dl (0.60-1.20); POTASSIUM 4.3 mmol/L (3.5-5.1); TOTAL PROTEIN 7.5 gm/dl (6.4-8.2)
[2018-04-14] MEDS ORDERED: DICL1GEL12 TOP (21:25)
[2018-04-14] MEDS ORDERED: METO5TAB5 PO (21:25)
[2018-04-14] MEDS ORDERED: ESCI10TA17 PO (21:25)
--- NOTE | 2018-04-14 22:15 | EMERGENCY ROOM VISIT NOTE ---
History Report prepared by Katiana: Katelyn Farrar Under the Supervision of: Dr. Phan Adrian D.O. First contact with patient: 20:01 Chief Complaint: REFERRED BY DOCTOR Stated Complaint: DR GALLAGHER CALLED - KIDNEY FAILURE History of Present Illness The patient is a 77 year old female who presents to the Emergency Room with complaints of worsening kidney failure. She states she was called by Dr. Malave this evening and told her Creatinine had gone from 3 to 5 and to come to the ED for further evaluation. She has a history of stage IV CKD but has not been placed on dialysis yet. The patient currently complains of increased pain and swelling in her bilateral feet. She does take daily Coumadin. Pt denies headache, change in vision, fevers, chest pain, shortness of breath, nausea, vomiting, diarrhea, pain with urination, and melena. 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 A total of 10 systems reviewed and were otherwise negative. Past Medical & Surgical Medical Problems: (1) Atrial fibrillation (2) Chest pain (3) CHF exacerbation (4) CKD (chronic kidney disease), stage IV (5) Dyslipidemia (6) Gout (7) HTN (hypertension) (8) Hypothyroidism (9) Left atrial thrombus (10) Osteoporosis (11) Rheumatic heart disease (12) Spinal stenosis Surgical Problems: (1) H/O aortic valve replacement (2) H/O mitral valve replacement (3) History of hysterectomy (4) Hx of thyroidectomy (5) Status post total hip replacement, left (6) Status post total hip replacement, right Family History Stroke MOTHER Social History Smoking Status: Current Every Day Smoker Alcohol Use: none Drug Use: none Marital Status: Housing Status: lives with family Occupation Status: retired Current/Historical Medications Scheduled Allopurinol (Zyloprim), 100 MG PO QAM Calcitriol (Rocaltrol Cap), 1 CAP PO 2XWK Cyanocobalamin (Vitamin B-12 1000 Mcg), 1 TAB PO afternoon Escitalopram (Lexapro), 10 MG PO QPM Folic Acid (Folic Acid), 1 MG PO QAM Furosemide (Lasix), 160 MG PO BID Gabapentin (Neurontin), 100 MG PO HS Hydralazine Hcl (Apresoline), 50 MG PO TID Iron-Vitamin C (Vitron-C), 1 TAB PO QAM Isosorbide Mononitrate Ext Rel (Imdur Ext Rel), 60 MG PO QAM Levothyroxine Sodium (Synthroid), 25 MCG PO QAM Metoprolol Tartrate (Lopressor), 50 MG PO BID Montelukast Sodium (Montelukast Sodium), 1 TAB PO late afternoon Nitroglycerin (Nitrostat), 0.4 MG UT PRN Pantoprazole (Protonix), 40 MG PO BID Potassium Ext Rel (Klor-Con), 20 MEQ PO BID Ranitidine (Zantac), 300 MG PO HS Umeclidinium-Vilanterol (Anoro Ellipta 62.5-25 Mcg/INH), 1 PUFFS INH DAILY Warfarin Sod (Coumadin), PO UD Scheduled PRN Albuterol Hfa (Ventolin Hfa), 2 PUFFS INH Q4 PRN for SOB/Wheezing Diclofenac Sodium (Topical) (Voltaren 1% Top Gel), 1 APPLN TOP QID PRN for Pain Guaifenesin (Organ-I Nr), 200 MG PO Q8 PRN for Cough Metolazone (Zaroxolyn), 5 MG PO DAILY PRN for Allergies Coded Allergies: Amlodipine (Verified Allergy, Unknown, edema per medical record, 04/14/18) Physical Exam Vital Signs Date Time Temp Pulse Resp B/P (MAP) Pulse Ox O2 Delivery O2 Flow Rate FiO2 04/14/18 19:56 36.7 72 18 117/62 95 Room Air Physical Exam GENERAL: Sitting up in bed, alert, disheveled, chronically ill-appearing, no distress, non-toxic EYE EXAM: normal conjunctiva. OROPHARYNX: no exudate, no erythema, lips, buccal mucosa, and tongue normal and mucous membranes are moist NECK: supple, no nuchal rigidity, no adenopathy, non-tender, positive JVD LUNGS: Clear to auscultation. Normal chest wall mechanics HEART: +REGINA, S1 normal and S2 normal ABDOMEN: abdomen soft, non-tender, normo-active bowel sounds, no masses, no rebound or guarding. BACK: Back is symmetrical on inspection and there is no deformity, no midline tenderness, no CVA tenderness. SKIN: no rashes and no bruising UPPER EXTREMITIES: upper extremities are grossly normal. LOWER EXTREMITIES: Pitting edema bilaterally. NEURO EXAM: Normal sensorium, cranial nerves II-XII grossly intact, normal speech, no gross weakness of arms, no gross weakness of legs. Gross sensation intact. Medical Decision & Procedures Laboratory Results 04/14/18 20:24 Red Blood Count 3.21, Mean Corpuscular Volume 108.4, Mean Corpuscular Hemoglobin 34.0, Mean Corpuscular Hemoglobin Concent 31.3, Neutrophils (%) (Auto ) 75.6, Lymphocytes (%) (Auto) 13.8, Monocytes (%) (Auto) 6.6, Eosinophils (%) ( Auto) 3.6, Basophils (%) (Auto) 0.2, Neutrophils # (Auto) 4.59, Lymphocytes # ( Auto) 0.84, Monocytes # (Auto) 0.40, Eosinophils # (Auto) 0.22, Basophils # ( Auto) 0.01 04/14/18 20:24 Test 04/14/18 20:24 04/14/18 20:31 White Blood Count 6.07 K/uL (4.8-10.8) Red Blood Count 3.21 M/uL (4.2-5.4) Hemoglobin 10.9 g/dL (12.0-16.0) Hematocrit 34.8 % (37-47) Mean Corpuscular Volume 108.4 fL (80-100) Mean Corpuscular Hemoglobin 34.0 pg (25-34) Mean Corpuscular Hemoglobin Concent 31.3 g/dl (32-36) Platelet Count 217 K/uL (130-400) Neutrophils (%) (Auto) 75.6 % Lymphocytes (%) (Auto) 13.8 % Monocytes (%) (Auto) 6.6 % Eosinophils (%) (Auto) 3.6 % Basophils (%) (Auto) 0.2 % Neutrophils # (Auto) 4.59 K/uL (1.4-6.5) Lymphocytes # (Auto) 0.84 K/uL (1.2-3.4) Monocytes # (Auto) 0.40 K/uL (0.11-0.59) Eosinophils # (Auto) 0.22 K/uL (0-0.5) Basophils # (Auto) 0.01 K/uL (0-0.2) RDW Standard Deviation 72.5 fL (36.4-46.3) RDW Coefficient of Variation 20.1 % (11.5-14.5) Immature Granulocyte % (Auto) 0.2 % Immature Granulocyte # (Auto) 0.01 K/uL (0.00-0.02) Anisocytosis PRESENT Schistocytes 1+ Est Creatinine Clear Calc Drug Dose 7.3 ml/min Estimated GFR () 8.8 Estimated GFR (Non- 7.6 BUN/Creatinine Ratio 17.1 (10-20) Calcium Level 9.3 mg/dl (8.5-10.1) Total Bilirubin 1.2 mg/dl (0.2-1) Direct Bilirubin 0.6 mg/dl (0-0.2) Aspartate Amino Transf (AST/SGOT) 34 U/L (15-37) Alanine Aminotransferase (ALT/SGPT) 13 U/L (12-78) Alkaline Phosphatase 73 U/L (45-117) Total Protein 7.5 gm/dl (6.4-8.2) Albumin 3.6 gm/dl (3.4-5.0) Lipase 233 U/L (73-393) Bedside Hemoglobin 12.2 g/dl (12.0-16.0) Bedside Hematocrit 36 % (37-47) Bedside Sodium 138 mEq/L (135-144) Bedside Potassium 4.3 mEq/L (3.3-5.0) Bedside Chloride 102 mEq/L (101-112) Bedside Total CO2 23 mEq/l (24-31) Anion Gap 18.0 mmol/L (16-25) Bedside Blood Urea Nitrogen 89 mg/dl (7-18) Bedside Creatinine 5.0 mg/dl (0.6-1.3) Bedside Glucose (other) 93 mg/dl (70-99) Bedside Ionized Calcium (Mendoza) 1.16 mmol/l (1.12-1.32) Laboratory results per my review. ECG Per My Interpretation Indication: weakness Rate (beats per minute): 71 Rhythm: atrial fibrillation Findings: other (normal axis, no PVC) ED Course ED COURSE: Vital signs were reviewed and showed normal vital signs. The patients medical record was reviewed The above diagnostic studies were performed and reviewed. ED treatments and interventions as stated above. 2002: The patient was evaluated in room B11. A complete history and physical examination was performed. 2129: I discussed the patients case with Eliza Richardson. The patient will be further evaluated. 2144: Upon reevaluation, the patient is resting comfortably. I discussed my findings with the patient and she understands and agrees with the treatment plan. Based on the patients age, coexisting illnesses, exam and lab findings the decision to treat as an inpatient was made. The patient remained stable while under my care. The patient will be evaluated for further management. Medical Decision Differential Diagnosis includes but is not limited to dehydration, stroke, anemia, hypoglycemia, hyponatremia, hypernatremia, urinary tract infection, pneumonia, bronchitis, sepsis, gastroenteritis, additional abdominal pathology, metabolic abnormalities and infections. Patient is a 77-year-old female with a past medical history of CKD that presents the ER referred in by PCP for elevated creatinine. Labs were obtained and CBC along with BMP, LFTs, bilirubin and lipase was remarkable for creatinine of 5.1 off of a baseline of 3. BUN was elevated. Neck has positive JVD. Lower extremities with bilateral pitting edema. Patient has no chest pain. Patient family were updated at bedside. Vitals were otherwise unremarkable. Patient was discussed with internal medicine for admission for JUAN C. Medication Reconcilliation Current Medication List: was personally reviewed by me Blood Pressure Screening Patient's blood pressure: Normal blood pressure Blood pressure disposition: Did not require urgent referral Consults Time Called: 2124 Consulting Physician: Eliza Richardson Returned Call: 2129 I discussed the patients case with Eliza Richardson. The patient will be further evaluated. Impression Primary Impression: JUAN C (acute kidney injury) Scribe Attestation The scribe's documentation has been prepared under my direction and personally reviewed by me in its entirety. I confirm that the note above accurately reflects all work, treatment, procedures, and medical decision making performed by me. Departure Information Dispostion Being Evaluated By Hospitalist Referrals Lana Aguillon M.D. (PCP) Patient Instructions My [facility]
[2018-04-14 22:29] VITALS: BMI 21.8
[2018-04-14] MEDS ORDERED: DICLOFENAC SOD 1% GEL 100 GM TUBE EXT PRN (22:45)
[2018-04-14] MEDS ORDERED: NITROGLYCERIN 0.4 MG SL PER TAB CHARGE UT SCH (22:45)
[2018-04-14] MEDS ORDERED: POLYETHYLENE (MIRALAX) 17 GM PACK PO PRN (22:45)
[2018-04-14] MEDS ORDERED: ALUMINUM/MAGNESIUM/SIMETH (MAALOX MAX) 30 ML UDC PO PRN (22:45)
[2018-04-14] MEDS ORDERED: NITROGLYCERIN 0.4 MG SL PER TAB CHARGE SL PRN (22:45)
[2018-04-14] MEDS ORDERED: ALBUTEROL HFA 8 GM INHALER INH PRN (22:45)
[2018-04-14] MEDS ORDERED: GUAIFENESIN 200 MG TAB PO PRN (22:45)
[2018-04-14] MEDS ORDERED: CMD25 PO (22:51)
[2018-04-14 23:07] LABS: INR 3.2 (0.9-1.1)
[2018-04-14 23:30] VITALS: BP 131/69; PULSE 61; TEMP 36.7; O2SAT 93
[2018-04-14] MEDS ORDERED: FUROSEMIDE INJ 80 MG in SYRINGE 0 ML IV ONE (23:45)
[2018-04-15] VITALS (7 sets, daily range): BP systolic 100–119; BP diastolic 51–68; PULSE 61–69; TEMP 36.5–37.1; O2SAT 90–97
--- NOTE | 2018-04-15 02:03 | HISTORY & PHYSICAL EXAMINATION ---
DATE OF ADMISSION: 04/14/2018 CHIEF COMPLAINT: Abnormal labs. HISTORY OF PRESENT ILLNESS: This is a 77-year-old female with past medical history significant for spinal stenosis, status post aortic and mitral valve replacement on anticoagulation, rheumatic heart disease, subacute bacterial endocarditis, atrial fibrillation, hyperlipidemia, osteoporosis, hypothyroidism, chronic kidney disease stage 4, gout, black hairy tongue, history of allergic rhinitis, hypertension, COPD, diastolic CHF, situational anxiety, was brought in because of abnormal labs. The patient has chronic kidney disease, stage 4. She has a fistula placement in her left arm in November of this year, which has not matured yet and she is supposed to see vascular surgery next week. She is also getting labs every week for Coumadin levels and also for renal function and labs are progressively worsening, her baseline creatinine is around 3 and her labs showed her creatinine was worsening around 5, so she was advised to come to the ER. The patient has also had a worsening lower extremity edema. Her diuretics were adjusted recently, but is not helping, making her kidney function worsen. The patient was feeling weak and tired, poor appetite, poor ambulatory status, walks with the help of a walker. She lives with her , but mostly depends on her. Denies any fever or chills. No headaches, no dizziness, no blurred vision, no earache, no runny nose, no sore throat, no difficulty swallowing, no chest pain, no shortness of breath. She feels nauseous every day in the morning and has cough for some time, but no vomiting. Normal bowel movements. No blood in the stools, no blood in the urine, no abdominal pain. Making not much urine, but no burning micturition. Currently, resting comfortably and hemodynamically stable. ALLERGIES: AMLODIPINE. PAST MEDICAL HISTORY: As mentioned above. PAST SURGICAL HISTORY: EGD, removal of thyroid gland, left total hip replacement, Total hysterectomy. MEDICATIONS: The patient is currently on metolazone 5 mg p.o. daily as needed, allopurinol 100 mg p.o. daily, Lexapro 10 mg p.o. daily, Protonix 40 mg p.o. b.i.d., folic acid 1 mg p.o. daily, calcitriol 0.25 mcg twice weekly, Lopressor 50 mg p.o. b.i.d., albuterol 2 puffs every 6 hours p.r.n., Ellipta 62.5/25 mcg inhalation daily, Lasix 160 mg p.o. b.i.d., hydralazine 50 mg p.o. t.i.d., Imdur 60 mg p.o. daily, Singulair 10 mg p.o. daily, Klor-Con 20 mEq p.o. b.i.d., nitroglycerin 0.4 mg sublingual p.r.n., levothyroxine 25 mcg p.o. daily, gabapentin 100 mg p.o. at bedtime, Zantac 300 mg p.o. at bedtime, Coumadin 3.75 mg daily or as directed, oxygen 2 liters as directed, iron, vitamin C one tablet daily, cyanocobalamin 1000 mcg daily. FAMILY HISTORY: Significant for father had lung disorder, mother has severe dementia. SOCIAL HISTORY: , lives with her , smokes quarter pack a day for last 54 years. Alcohol occasional. No drug use. REVIEW OF SYMPTOMS: Per HPI. Rest of review of systems negative. PHYSICAL EXAMINATION: GENERAL: The patient is of moderate build, not in distress. VITAL SIGNS: Temperature 36.7, pulse 72, respiratory rate 18, blood pressure 117/62, oxygen 95% room air. HEENT: No pallor, no icterus. Pupils equal, round, reactive to light. NECK: No JVD. No neck masses. No carotid bruit. CARDIOVASCULAR: S1, S2 heard, regular rate and rhythm, no murmur, no gallop. RESPIRATORY SYSTEM: Clear to auscultation bilaterally. No wheezing, no crackles. ABDOMEN: Soft, bowel sounds present, nontender. No distention. CENTRAL NERVOUS SYSTEM: Cranial nerves II through XII grossly intact. Nonfocal. EXTREMITIES: Lower extremity edema, +2 edema present. No erythema seen. LABORATORIES: WBC 6.07, hemoglobin 10.9, hematocrit 34.8, platelets 217. Sodium 138, potassium 4.3, chloride 103, bicarbonate 23, BUN 87, creatinine 5.1, serum glucose 95, calcium 9.3, ionized calcium 1.16, total bilirubin 1.2, direct bilirubin 0.6, AST 34, ALT 13, alkaline phosphatase 73, lipase 233. PT/INR pending. EKG: AFib with a rate of 71. No acute ST changes seen. ASSESSMENT AND PLAN: This is a 77-year-old female presents with JUAN C on chronic kidney disease, stage 4. 1. JUAN C on chronic kidney disease, stage 4. She has fistula on left arm, which is not matured yet. She has recently increased her diuretics for lower extremity edema, volume overload, but she is still retaining fluids. Discussed with nephrology starting on IV Lasix. We will give Lasix 80 mg 1 dose and then IV Lasix 80 mg b.i.d. Daily weights, I 's and O's. Closely monitor on the tele floor, further management as per nephrology. Initiating of dialysis if needed as per nephrology 2. acute on chronic diastolic CHF. Lasix as above We will follow daily weights, I's and O's. We will also follow echocardiogram. Last echo was done in 05/2017. 3. History of rheumatic heart disease, status post aortic and mitral valve replacement, on Coumadin. The patient says she is having difficulty managing the Coumadin. We will follow PT/INR and adjust the Coumadin levels. 4. History of atrial fibrillation, rate controlled on Lopressor. on Coumadin. Follow the PT/INR. 5. Hypothyroidism. Continue Synthroid. 6. Gastroesophageal reflux disease, PPI, Zantac. 7. History of hypertension. Continue Lopressor, hydralazine, Imdur, and diuretics . Will monitor blood pressure. 8. Depression. Continue Lexapro. 9. History of chronic obstructive pulmonary disease. Continue Ellipta and inhalers p.r.n. 10. Gout. Continue allopurinol. 11. Tobacco abuse. 12. Deep venous thrombosis prophylaxis, on Coumadin. Monitor and follow the PT/INR. 13. Disposition. Admit to tele floor. PT/OT prior to discharge. Social service to help with discharge planning. Level 1 full code. MTDD
[2018-04-15] MEDS: LEVOTHYROXINE 25 MCG TAB PO SCH (05:25)
[2018-04-15] MEDS: ISOSORBIDE MONONITRATE 60 MG TABCR PO SCH (07:34)
[2018-04-15] MEDS: ASCORBIC ACID 500 MG TAB PO SCH (07:34)
[2018-04-15] MEDS: PANTOprazole SOD 40 MG TAB PO SCH ×2 (07:34→20:22)
[2018-04-15] MEDS: CYANOCOBALAMIN 500 MCG TAB (VIT B-12) PO SCH (07:35)
[2018-04-15] MEDS: POTASSIUM CHLORIDE 20 MEQ TABCR PO SCH ×2 (07:35→20:22)
[2018-04-15] MEDS: METOPROLOL TARTRATE 50 MG TAB PO SCH ×2 (07:35→20:53)
[2018-04-15] MEDS: ALLOPURINOL 100 MG TAB PO SCH (07:36)
[2018-04-15 07:54] LABS: BASO % 0.7 %; BASO ABS # 0.03 K/uL (0-0.2); EOS % 5.7 %; EOS ABS # 0.26 K/uL (0-0.5); HEMATOCRIT 33.1 % (37-47); HEMOGLOBIN 10.4 g/dL (12.0-16.0); LYMPH % 10.9 %; MEAN CELL VOLUME 108.5 fL (80-100); MEAN CORPUSCULAR HEMOGLOBIN 34.1 pg (25-34); MEAN CORPUSCULAR HGB CONC 31.4 g/dl (32-36); MONO ABS # 0.78 K/uL (0.11-0.59); NEUT % 65.7 %; NEUT ABS # 3.01 K/uL (1.4-6.5); PLATELET COUNT 167 K/uL (130-400); RED CELL DISTRIBUTION WIDTH CV 19.6 % (11.5-14.5); RED CELL DISTRIBUTION WIDTH SD 68.9 fL (36.4-46.3); WHITE BLOOD COUNT 4.58 K/uL (4.8-10.8)
[2018-04-15 08:01] LABS: INR 2.9 (0.9-1.1)
[2018-04-15 08:32] LABS: CALCIUM 9.1 mg/dl (8.5-10.1); CREATININE 5.11 mg/dl (0.60-1.20); POTASSIUM 3.7 mmol/L (3.5-5.1)
[2018-04-15] MEDS ORDERED: HEPARIN SOD 5000 UNIT/0.5 ML CARP SQ SCH (09:00)
[2018-04-15] MEDS: FUROSEMIDE INJ 80 MG in SYRINGE 0 ML IV SCH ×2 (09:17→17:07)
--- NOTE | 2018-04-15 09:53 | DIAGNOSTIC IMAGING REPORT ---
CHEST ONE VIEW PORTABLE CLINICAL HISTORY: pleural effusion COMPARISON STUDY: 02/19/2018 FINDINGS: The heart is enlarged. There are postsurgical changes of a midline sternotomy and valvular replacement. There is progressive congestive failure with mild interstitial edema. Right basal airspace opacities likely reflect focal edema. There is a small right pleural effusion.[ IMPRESSION: Worsening congestive failure with mild interstitial edema. Small right pleural effusion Electronically signed by: Oziel Morelos M.D. 04/15/2018 9:52 AM Dictated Date/Time: 04/15/2018 9:51 AM
[2018-04-15] MEDS: ONDANSETRON INJ 2 MG/ML 2 ML VIAL IV PRN (15:33)
--- NOTE | 2018-04-15 16:23 | Progress Note ---
Internal Med Progress Note Date of Service: Apr 15, 2018. Provider Documentation: SUBJECTIVE: Patient appears to be more confused, knows that she is in the hospital, could not recall the circumstances that brought her at [facility] [place] Daughter present at bedside Concerned about patient's change in mental status/confusion Frustrated with the fact that patient was recently started with antidepressant Lexapro and Neurontin for lower extremity chronic peripheral neuropathy neuropathy As per family they noted patient developed increased confusion, delusion, lethargy after initiation of SSRI OBJECTIVE: Vital Signs-as noted below Exam: General-elderly female, no sign of distress Eyes-sclera nonicteric, pupils bilateral equal reactive light extraocular muscle intact ENT-moist oral mucosa Neck-supple, no JVD, no carotid bruit, thyromegaly, trachea midline Lungs-diminished, bibasilar Heart-regular Abdomen-soft nontender Extremities-no lower extremity edema, no rash or deformity Neuro-no focal neurological deficit Lab data as noted below. ASSESSMENT & PLAN: JUAN C ON CKD STAGE IV Patient was sent by nephrology for volume overload, wt gain( Increased weight gain -117 pounds on 04/09/18 to 125 pound)/worsening of renal function with increased creatinine~5 While on increased Lasix dose Appreciate up from nephrology Recommend to continue IV Lasix 80 mg twice daily Potassium supplement 20meq twice daily Follow PRP closely Low-sodium diet, and 1.5 L /day fluid restriction Has fistula on left arm, not mature yet to be used for dialysis Monitor volume status with daily weight /input output ANEMIA OF CHRONIC DISEASE Hemoglobin remained stable ACUTE CHF WITH DIASTOLIC HEART FAILURE Secondary to renal insufficiency/JUAN C-leading to volume overload Echo on 05/2017 showed resolved LVEF with grade 2 diastolic dysfunction ordered for repeat ECHO Continue with IV Lasix /diuresis Monitor volume status with daily weight /input output HISTORY OF RHEUMATIC HEART DISEASE/ Status post mitral and aortic valve replacement with prosthetic/mechanical valve Echocardiogram ordered, report pending Continue Coumadin Monitor PT/INR Goal INR 2.5-3.5 HISTORY OF CHRONIC A. FIB Rate controlled on Lopressor Chronic anticoagulation with Coumadin HYPOTHYROIDISM On Synthroid CONFUSION/LETHARGY/METABOLIC ENCEPHALOPATHY At baseline patient is fairly independent, able to cook and clean and take care of her elderly Presents with confusion, lethargy, poor appetite, decreased responsiveness Possible combination of dehydration AK I Will discontinue SSRI and Neurontin for possible effect of sedation Avoid anxiolytic hypnotic/narcotic pain medications Mental status gradually improving Will need PT OT evaluation Fall precaution Concern for sundowning Will benefit from home PT/ health visiting nurse GERD Continue PPI, H2 ida /Zantac HYPERTENSION Continue Lopressor, hydralazine, Imdur Getting IV Lasix for diuresis DEPRESSION Denies of any delusion or suicidal ideation Patient having significant short-term memory loss Will discontinue Lexapro, patient recently started on SSRI due to generalized anxiety anxiety disorder/depressive mood We will DC Celexa and Neurontin-as family is concerned patient's current mental status could be due to drug reaction/side effect HISTORY OF GOUT No acute flare Continue allopurinol HISTORY OF COPD Respiratory status stable No wheeze Continue elipta as needed inhaler CODE STATUS: Full code DVT PROPHYLAXIS On Coumadin DISPOSITION PT OT evaluation prior to discharge Social service consulted for discharge planning Vital Signs: Date Time Temp Pulse Resp B/P (MAP) Pulse Ox O2 Delivery O2 Flow Rate FiO2 04/15/18 23:43 36.7 63 16 103/51 (68) 97 Room Air 04/15/18 20:00 Nasal Cannula 2.0 04/15/18 19:24 37.1 69 16 100/51 (67) 92 Nasal Cannula 2.0 04/15/18 15:00 36.8 65 16 119/62 (81) 92 Room Air 04/15/18 11:59 36.7 65 19 104/60 (75) 96 Room Air 04/15/18 07:24 36.9 65 20 114/64 (81) 90 Room Air 04/15/18 06:30 Room Air 04/15/18 04:02 36.5 61 17 115/68 (84) 90 Room Air Lab Results: Results Past 24 Hours Test 04/15/18 07:02 04/15/18 10:15 04/15/18 16:44 Range/Units White Blood Count 4.58 4.8-10.8 K/uL Red Blood Count 3.05 4.2-5.4 M/uL Hemoglobin 10.4 12.0-16.0 g/dL Hematocrit 33.1 37-47 % Mean Corpuscular Volume 108.5 80-100 fL Mean Corpuscular Hemoglobin 34.1 25-34 pg Mean Corpuscular Hemoglobin Concent 31.4 32-36 g/dl Platelet Count 167 130-400 K/uL Neutrophils (%) (Auto) 65.7 % Lymphocytes (%) (Auto) 10.9 % Monocytes (%) (Auto) 17.0 % Eosinophils (%) (Auto) 5.7 % Basophils (%) (Auto) 0.7 % Neutrophils # (Auto) 3.01 1.4-6.5 K/uL Lymphocytes # (Auto) 0.50 1.2-3.4 K/uL Monocytes # (Auto) 0.78 0.11-0.59 K/uL Eosinophils # (Auto) 0.26 0-0.5 K/uL Basophils # (Auto) 0.03 0-0.2 K/uL RDW Standard Deviation 68.9 36.4-46.3 fL RDW Coefficient of Variation 19.6 11.5-14.5 % Immature Granulocyte % (Auto) 0.0 % Immature Granulocyte # (Auto) 0.00 0.00-0.02 K/uL Prothrombin Time 30.0 9.0-12.0 SECONDS Prothromb Time International Ratio 2.9 0.9-1.1 Sodium Level 138 137 136-145 mmol/L Potassium Level 3.7 3.4 3.5-5.1 mmol/L Chloride Level 104 102 98-107 mmol/L Carbon Dioxide Level 24 23 21-32 mmol/L Anion Gap 10.0 12.0 3-11 mmol/L Blood Urea Nitrogen 88 93 7-18 mg/dl Creatinine 5.11 5.08 0.60-1.20 mg/dl Est Creatinine Clear Calc Drug Dose 7.3 7.3 ml/min Estimated GFR () 8.8 8.8 Estimated GFR (Non- 7.6 7.6 BUN/Creatinine Ratio 17.1 18.1 10-20 Random Glucose 88 103 70-99 mg/dl Calcium Level 9.1 8.8 8.5-10.1 mg/dl Magnesium Level 2.4 1.8-2.4 mg/dl Pro-B-Type Natriuretic Peptide 77313 0-1800 pg/ml Urine Color YELLOW Urine Appearance CLEAR CLEAR Urine pH 5.0 4.5-7.5 Urine Specific [place] 1.013 1.000-1.030 Urine Protein NEG NEG Urine Glucose (UA) NEG NEG Urine Ketones NEG NEG Urine Occult Blood NEG NEG Urine Nitrite NEG NEG Urine Bilirubin NEG NEG Urine Urobilinogen NEG NEG Urine Leukocyte Esterase NEG NEG Urine WBC (Auto) 1-5 0-5 /hpf Urine RBC (Auto) 0-4 0-4 /hpf Urine Hyaline Casts (Auto) 5-10 0-5 /lpf Urine Epithelial Cells (Auto) >30 0-5 /lpf Urine Bacteria (Auto) NEG NEG
--- NOTE | 2018-04-15 17:16 | Nephrology Consultation ---
Nephrology Consultation Date of Consultation: Apr 15, 2018. Attending Physician: Dr Hernandez Requesting Physician: Dr Brock Reason for Consultation: JUAN C on CKD5 not on dialysis History of Present Illness 77 year old female w/ baseline creatinine 3-mid 3s whom I sent to ER yesterday d /t worsening volume overload and increase in creatinine to 5 despite intensification of her diuretics. As of yesterday per HHN reporting, her wt had increased from 117 on 04/09 to 125 and more edema than baseline was reported. There was no worsening dyspnea or increase in 02 needs. complex PMH in full as below and remarkable briefly for COPD, active tobacco abuse, diastolic HF, s/p aortic/mitral valve replacements w/ afib on coumadin in addition to ESRD. I had seen her last week in clinic and increased her diuretics but volume status continued to worsen. No f/c, n/d, or voiding sx but + generalized weakness, fatigue in addition to edema. Did have one time emesis on 04/11. Past Medical/Surgical History Medical Problems: (1) JUAN C (acute kidney injury) Status: Acute (2) CHF (congestive heart failure) Status: Acute -admission 01/19-02/01/18 [facility] for HF exacerbation and R pleural effusion needing pleurex -baseline CKD 5, baseline creatinine in 2018 about 3 -chronic ambulatory dysfunction, walker dependent -chronic diastolic HF -rheumatic heart disease s/p mechanical AVR/MVR -active tobacco abuse -hypothryoid -HTN -severe COPD home 02 dependent 2LNC -gout -frequent admissions [facility] for volume overload -noted at admission 01/2018 to have some confusion about taking meds correctly -spinal stenosis -anxiety -s/p total hip replacements, total hysterectomy, thyroidectomy -s/p AVF creation 11/2017 Dr Elena Family History Stroke MOTHER Social History Smoking Status: Current Every Day Smoker Alcohol Use: none Drug Use: none Marital Status: Housing Status: lives with family Occupation Status: retired Allergies Coded Allergies: Amlodipine (Verified Allergy, Unknown, edema per medical record, 04/14/18) Medications Current Inpatient Medications Medications (Trade) Dose Ordered Sig/Shana Route Start Time Stop Time Status Last Admin Dose Admin Acetaminophen (Tylenol Tab) 650 mg Q4H PRN PO 04/14/18 22:45 05/14/18 22:44 Al Hydrox/Mg Hydrox/Simethicone (Maalox Max Susp) 15 ml Q4H PRN PO 04/14/18 22:45 05/14/18 22:44 Ondansetron HCl (Zofran Inj) 4 mg Q6H PRN IV 04/14/18 22:45 05/14/18 22:44 Nitroglycerin (Nitrostat Tab) 0.4 mg UD PRN SL 04/14/18 22:45 05/14/18 22:44 Polyethylene (Miralax Powder Packet) 17 gm DAILY PRN PO 04/14/18 22:45 05/14/18 22:44 Albuterol (Ventolin Hfa Inhaler) 2 puffs Q4 PRN INH 04/14/18 22:45 05/14/18 22:44 Allopurinol (Zyloprim Tab) 100 mg QAM PO 04/15/18 09:00 05/15/18 08:59 04/15/18 07:36 100 MG Calcitriol (Rocaltrol Cap) 0.25 mcg MoTh@1200 PO 04/16/18 12:00 05/16/18 11:59 Cyanocobalamin (Vitamin B-12 Tab) 1,000 mcg DAILY PO 04/15/18 09:00 05/15/18 08:59 04/15/18 07:35 1,000 MCG Diclofenac Sodium (Voltaren 1% Top Gel) 1 appln QID PRN EXT 04/14/18 22:45 05/14/18 22:44 Escitalopram Oxalate (Lexapro Tab) 10 mg QPM PO 04/15/18 21:00 05/15/18 20:59 Folic Acid (Folvite Tab) 1 mg QAM PO 04/15/18 09:00 05/15/18 08:59 04/15/18 07:35 1 MG Gabapentin (Neurontin Cap) 100 mg HS PO 04/15/18 21:00 05/15/18 20:59 Guaifenesin (Organidin Nr Tab) 200 mg Q8 PRN PO 04/14/18 22:45 05/14/18 22:44 04/15/18 07:34 200 MG Hydralazine HCl (Apresoline Tab) 50 mg TID PO 04/15/18 09:00 05/15/18 08:59 04/15/18 07:36 50 MG Isosorbide Mononitrate (Imdur Ext Rel Tab) 60 mg QAM PO 04/15/18 09:00 05/15/18 08:59 04/15/18 07:34 60 MG Levothyroxine Sodium (Synthroid Tab) 25 mcg DAILYBB PO 04/15/18 06:00 05/15/18 05:59 04/15/18 05:25 25 MCG Metoprolol Tartrate (Lopressor Tab) 50 mg BID PO 04/15/18 09:00 05/15/18 08:59 04/15/18 07:35 50 MG Montelukast Sodium (Singulair Tab) 10 mg PM PO 04/15/18 21:00 05/15/18 20:59 Pantoprazole Sodium (Protonix Tab) 40 mg BID PO 04/15/18 09:00 05/15/18 08:59 04/15/18 07:34 40 MG Potassium Chloride (Klor-Con Tab) 20 meq BID PO 04/15/18 09:00 05/15/18 08:59 04/15/18 07:35 20 MEQ Ascorbic Acid (Vitamin C Tab) 500 mg QAM PO 04/15/18 09:00 05/15/18 08:59 04/15/18 07:34 500 MG Ranitidine HCl (zANTac TAB) 300 mg HS PO 04/15/18 21:00 05/15/18 20:59 Miscellaneous Information (Order Awaiting Action) 1 ea QS N/A 04/15/18 00:00 05/15/18 00:00 Furosemide 80 mg/ Syringe 8 ml @ 4 mls/min BID17 IV 04/15/18 09:00 05/15/18 08:59 Home Meds and Scripts Medications Dose Route/Sig Max Daily Dose Days Date Category Dose Instructions Coumadin (Warfarin Sod) 2.5 Mg Tab 3.75 Mg PO DAILY 04/14/18 Rx Lexapro (Escitalopram Oxalate) 10 Mg Tab 10 Mg PO QPM 04/14/18 Reported Voltaren 1% Top Gel (Diclofenac Sodium (Topical)) 1 % Gel 1 Appln TOP QID PRN 04/14/18 Reported Zaroxolyn (Metolazone) 5 Mg Tab 5 Mg PO DAILY PRN 04/14/18 Reported Ventolin Hfa (Albuterol) 200 Puffs/[id number] Mcg Aers 2 Puffs INH Q4 PRN 01/20/18 Rx Anoro Ellipta 62.5-25 Mcg/INH (Umeclidinium-Vilanterol) 1 Aer Aer 1 Puffs INH DAILY 01/20/18 Rx Organ-I Nr (Guaifenesin) 200 Mg Tab 200 Mg PO Q8 PRN 01/19/18 Reported Lasix (Furosemide) 80 Mg Tab 160 Mg PO BID 01/19/18 Reported Klor-Con (Potassium Chloride) 20 Meq Tabcr 20 Meq PO BID 11/13/17 Reported takes one in am and takes one in early afternoon Nitrostat (Nitroglycerin) 0.4 Mg Tab 0.4 Mg UT PRN 11/13/17 Reported Protonix (Pantoprazole Sodium) 40 Mg Tab 40 Mg PO BID 10/09/17 Reported Vitron-C (Iron-Vitamin C) 1 Tab Tab 1 Tab PO QAM 10/09/17 Reported Folic Acid 1 Mg Tab 1 Mg PO QAM 10/09/17 Reported Imdur Ext Rel (Isosorbide Mononitrate) 60 Mg Ertab 60 Mg PO QAM 10/09/17 Reported Zantac (Ranitidine HCl) 300 Mg Tab 300 Mg PO HS 03/17/17 Reported Apresoline (Hydralazine Hcl) 50 Mg Tab 50 Mg PO TID 03/17/17 Reported Montelukast Sodium 10 Mg Tab 1 Tab PO LATE AFTERNOON 03/17/17 Reported Neurontin (Gabapentin) 100 Mg Cap 100 Mg PO HS 03/17/17 Reported Vitamin B-12 1000 Mcg (Cyanocobalamin) 1,000 Mcg Tab 1 Tab PO AFTERNOON 30 03/17/17 Reported Rocaltrol Cap (Calcitriol) 0.25 Mcg Cap 1 Cap PO 2XWK 30 03/17/17 Reported mon, thurs - takes in the afternoon Synthroid (Levothyroxine Sodium) 25 Mcg Tab 25 Mcg PO QAM 03/30/12 Reported Zyloprim (Allopurinol) 100 Mg Tab 100 Mg PO QAM 03/30/12 Reported Lopressor (Metoprolol Tartrate) 50 Mg Tab 50 Mg PO BID 03/30/12 Reported Review of Systems Constitutional: + weakness, + fatigue, No fever Eyes: No worsening of vision ENT: No hearing loss Respiratory: + shortness of breath, + dyspnea on exertion, + dyspnea at rest Cardiac: + edema, No chest pain, No palpitations Abdomen: No pain, No nausea, No vomiting, No diarrhea, No constipation Musculoskeletal: No joint pain, No muscle pain Female : No dysuria, No urinary frequency, No hematuria Neuro: + weakness, + balance problems, No memory loss Psych: No depression symptoms, No anxiety Heme: No abnormal bleeding/bruising Endo: + fatigue Skin: No rash, No itch Physical Exam Date Time Temp Pulse Resp B/P (MAP) Pulse Ox O2 Delivery O2 Flow Rate FiO2 04/15/18 07:24 36.9 65 20 114/64 (81) 90 Room Air 04/15/18 04:02 36.5 61 17 115/68 (84) 90 Room Air 04/15/18 00:00 93 Room Air 04/14/18 23:30 93 Room Air 04/14/18 23:30 36.7 61 18 131/69 (89) 93 Room Air 04/14/18 23:02 75 18 106/55 93 Room Air 04/14/18 22:29 Room Air 04/14/18 19:56 36.7 72 18 117/62 95 Room Air General Appearance: WD/WN, no apparent distress, + pertinent finding (on RA, dyspneic with position changes) Eyes: EOMI ENT: normal ENT inspection Neck: supple Respiratory/Chest: + decreased breath sounds (R base), + crackles (R base), + wheezing (insp BL) Cardiovascular: + irregularly irregular, + pertinent finding (edema, w/ mechanical valve click) Abdomen: normal bowel sounds, non tender, soft, + pertinent finding (no real) Extremities: + swelling (2+ proximal thigh BL, trace pedal), + pertinent finding (AVF L r-c small/thready but + t/b) Neurologic/Psych: alert, normal mood/affect, oriented x 3 Skin: no jaundice, warm/dry, no rash Diagnostics Last 24 Hours Test 04/14/18 20:24 04/14/18 20:31 04/15/18 07:02 White Blood Count 6.07 K/uL 4.58 K/uL Red Blood Count 3.21 M/uL 3.05 M/uL Hemoglobin 10.9 g/dL 10.4 g/dL Hematocrit 34.8 % 33.1 % Mean Corpuscular Volume 108.4 fL 108.5 fL Mean Corpuscular Hemoglobin 34.0 pg 34.1 pg Mean Corpuscular Hemoglobin Concent 31.3 g/dl 31.4 g/dl Platelet Count 217 K/uL 167 K/uL Neutrophils (%) (Auto) 75.6 % 65.7 % Lymphocytes (%) (Auto) 13.8 % 10.9 % Monocytes (%) (Auto) 6.6 % 17.0 % Eosinophils (%) (Auto) 3.6 % 5.7 % Basophils (%) (Auto) 0.2 % 0.7 % Neutrophils # (Auto) 4.59 K/uL 3.01 K/uL Lymphocytes # (Auto) 0.84 K/uL 0.50 K/uL Monocytes # (Auto) 0.40 K/uL 0.78 K/uL Eosinophils # (Auto) 0.22 K/uL 0.26 K/uL Basophils # (Auto) 0.01 K/uL 0.03 K/uL RDW Standard Deviation 72.5 fL 68.9 fL RDW Coefficient of Variation 20.1 % 19.6 % Immature Granulocyte % (Auto) 0.2 % 0.0 % Immature Granulocyte # (Auto) 0.01 K/uL 0.00 K/uL Anisocytosis PRESENT Schistocytes 1+ Prothrombin Time 32.4 SECONDS 30.0 SECONDS Prothromb Time International Ratio 3.2 2.9 Sodium Level 138 mmol/L Potassium Level 4.3 mmol/L Chloride Level 103 mmol/L Carbon Dioxide Level 23 mmol/L Anion Gap 12.0 mmol/L 18.0 mmol/L Blood Urea Nitrogen 87 mg/dl Creatinine 5.10 mg/dl Est Creatinine Clear Calc Drug Dose 7.3 ml/min Estimated GFR () 8.8 Estimated GFR (Non- 7.6 BUN/Creatinine Ratio 17.1 Random Glucose 95 mg/dl Calcium Level 9.3 mg/dl Total Bilirubin 1.2 mg/dl Direct Bilirubin 0.6 mg/dl Aspartate Amino Transf (AST/SGOT) 34 U/L Alanine Aminotransferase (ALT/SGPT) 13 U/L Alkaline Phosphatase 73 U/L Total Protein 7.5 gm/dl Albumin 3.6 gm/dl Lipase 233 U/L Bedside Hemoglobin 12.2 g/dl Bedside Hematocrit 36 % Bedside Sodium 138 mEq/L Bedside Potassium 4.3 mEq/L Bedside Chloride 102 mEq/L Bedside Total CO2 23 mEq/l Bedside Blood Urea Nitrogen 89 mg/dl Bedside Creatinine 5.0 mg/dl Bedside Glucose (other) 93 mg/dl Bedside Ionized Calcium (Mendoza) 1.16 mmol/l Diagnostic Radiology: cxr pending>> small R pleural effusion, worsening congestive failure w/ mild i- s edema EKG: ecg > afib VR 71 Assessment & Plan 77 y/o F w/ a fib on coumadin, chronic diastolic/valvular HF, CKD 5 not on dialysis w/ baseline creatinine 3-3.5, active tobacco abuse, COPD. R pleural effusion spring 2017 needing pleurex admitted 04/15 for JUAN C on CKD 5 and worsening volume overload JUAN C on CKD 5 w/ volume OL in setting of complex cardiopulmonary disease suspect cardiorenal syndrome here versus simply progression of her severe renal disease leading to volume overload; multiple data are pending. chemistries are acceptable at this time -current bp/HR acceptable > scale back on hydralazine if bp drops w/ intensified diuretics -continue lasix 80 mg IV bid timed so as not to disrupt sleep >> given cxr will increase to tid -continue current K 20 mEq bid -no indication for metolazone at this time -ordered UA for completeness >> bland -no real needed at this time -bid bmp for now > ordered repeat for 1600 -needs daily standing wt pls -ordered <2 gm Na diet and 1.5L fluid limit in addition to already ordered renal diet -f/u cxr; low threshold given recent hx for CT chest and or TTE Anemia of chronic disease -stable/ acceptable currently Appreciate consult; will follow with you.
[2018-04-15 18:48] LABS: CALCIUM 8.8 mg/dl (8.5-10.1); CREATININE 5.08 mg/dl (0.60-1.20); POTASSIUM 3.4 mmol/L (3.5-5.1)
[2018-04-15] MEDS: RANITIDINE HCL 150 MG TAB PO SCH (20:22)
[2018-04-15] MEDS: MONTELUKAST SOD 10 MG TAB PO SCH (20:22)
[2018-04-15] MEDS ORDERED: GABAPENTIN 100 MG CAP PO SCH (21:00)
[2018-04-15] MEDS ORDERED: ESCITALOPRAM OXALATE 10 MG TAB PO SCH (21:00)
[2018-04-15] MEDS ORDERED: FUROSEMIDE INJ 80 MG in SYRINGE 0 ML IV ONE (21:00)
[2018-04-16] VITALS (7 sets, daily range): BP systolic 91–110; BP diastolic 52–63; PULSE 63–103; TEMP 36.5–37.1; O2SAT 91–99
[2018-04-16] MEDS: LEVOTHYROXINE 25 MCG TAB PO SCH (05:24)
[2018-04-16] MEDS: METOLAZONE 2.5 MG TAB PO SCH (05:24)
[2018-04-16] MEDS ORDERED: FUROSEMIDE INJ 80 MG in SYRINGE 0 ML IV SCH (06:00)
[2018-04-16 07:07] LABS: BASO % 0.8 %; BASO ABS # 0.04 K/uL (0-0.2); EOS % 4.8 %; EOS ABS # 0.24 K/uL (0-0.5); HEMATOCRIT 32.1 % (37-47); IG# 0.01 K/uL (0.00-0.02); LYMPH % 10.4 %; LYMPH ABS # 0.52 K/uL (1.2-3.4); MEAN CELL VOLUME 108.4 fL (80-100); MEAN CORPUSCULAR HEMOGLOBIN 33.8 pg (25-34); MEAN CORPUSCULAR HGB CONC 31.2 g/dl (32-36); MONO % 18.7 %; MONO ABS # 0.94 K/uL (0.11-0.59); NEUT % 65.1 %; NEUT ABS # 3.27 K/uL (1.4-6.5); PLATELET COUNT 153 K/uL (130-400); RED CELL DISTRIBUTION WIDTH CV 19.4 % (11.5-14.5); RED CELL DISTRIBUTION WIDTH SD 69.8 fL (36.4-46.3); WHITE BLOOD COUNT 5.02 K/uL (4.8-10.8)
[2018-04-16 07:14] LABS: INR 2.1 (0.9-1.1)
[2018-04-16 07:45] LABS: CALCIUM 8.6 mg/dl (8.5-10.1); CREATININE 5.26 mg/dl (0.60-1.20); POTASSIUM 3.7 mmol/L (3.5-5.1)
[2018-04-16] MEDS: PANTOprazole SOD 40 MG TAB PO SCH ×2 (08:04→21:05)
[2018-04-16] MEDS: CYANOCOBALAMIN 500 MCG TAB (VIT B-12) PO SCH (08:04)
[2018-04-16] MEDS: POTASSIUM CHLORIDE 20 MEQ TABCR PO SCH ×2 (08:04→20:36)
[2018-04-16] MEDS: METOPROLOL TARTRATE 50 MG TAB PO SCH ×2 (08:05→20:35)
[2018-04-16] MEDS: ALLOPURINOL 100 MG TAB PO SCH (08:06)
[2018-04-16] MEDS: ASCORBIC ACID 500 MG TAB PO SCH (08:39)
[2018-04-16] MEDS: ISOSORBIDE MONONITRATE 60 MG TABCR PO SCH (08:39)
[2018-04-16] MEDS ORDERED: CALCITRIOL 0.25 MCG CAP PO SCH (12:00)
[2018-04-16] MEDS ORDERED: METOLAZONE 2.5 MG TAB PO ONE (12:30)
[2018-04-16] MEDS: FUROSEMIDE INJ 100 MG in SYRINGE 0 ML IV SCH ×2 (13:51→21:57)
--- NOTE | 2018-04-16 14:12 | Progress Note ---
Internal Med Progress Note Date of Service: Apr 16, 2018. Provider Documentation: SUBJECTIVE: Awake sitting up in bed, states does not feel well Very poor energy Lack of appetite, did not touch breakfast or lunch tray Daughter present at bedside OBJECTIVE: Vital Signs-as noted below Exam: General-elderly female, chronically ill appearing no sign of distress Eyes-sclera nonicteric, pupils bilateral equal reactive light extraocular muscle intact ENT-moist oral mucosa Neck-supple, no JVD, no carotid bruit, thyromegaly, trachea midline Lungs-diminished, bibasilar Heart-regular Abdomen-soft nontender Extremities-no lower extremity edema, no rash or deformity Neuro-no focal neurological deficit, generalized weakness, lethargy Lab data as noted below. ASSESSMENT & PLAN: JUAN C ON CKD STAGE IV Patient was sent by nephrology for volume overload, wt gain( Increased weight gain -117 pounds on 04/09/18 to 125 pound)/worsening of renal function with increased creatinine~5 While on increased Lasix dose Appreciate up from nephrology Patient is showing evidence of progressive uremia/volume overload /oliguric renal failure Will need dialysis soon Was on 80 mg IV Lasix 3 times daily Minimum urine output Lasix dose increased to 100 mg IV 3 times daily Given extra dose of Bumex today Nephrology Dr. Kelly will discuss again with family members To start patient on dialysis Patient has fistula left arm placed on November [address] Elena Per nephrology, will attempt to use fistula for the dialysis In case of fistula nonfunctional will tunneled dialysis catheter to be placed by Dr. Elena Patient and daughter updated, in agreement with the plan ANEMIA OF CHRONIC DISEASE Hemoglobin remained stable ACUTE CHF WITH DIASTOLIC HEART FAILURE Secondary to renal insufficiency/JUAN C-leading to volume overload Echo on 05/2017 showed resolved LVEF with grade 2 diastolic dysfunction ordered for repeat ECHO Continue with aggressive IV Lasix was increased to 100 mg 3 times daily/diuresis Monitor volume status with daily weight /input output May need dialysis to correct volume overload HISTORY OF RHEUMATIC HEART DISEASE/ Status post mitral and aortic valve replacement with prosthetic/mechanical valve Echocardiogram ordered, report pending Continue Coumadin Monitor PT/INR Goal INR 2.5-3.5 HISTORY OF CHRONIC A. 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 At baseline patient is fairly independent, able to cook and clean and take care of her elderly Presents with confusion, lethargy, poor appetite, decreased responsiveness SSRI -Lexapro and Neurontin as family is concerned about for possible side effect of sedation Avoid anxiolytic hypnotic/narcotic pain medications GERD Continue PPI, H2 ida /Zantac HYPERTENSION Continue Lopressor, hydralazine, Imdur Getting IV 100 mg milligrams Lasix 3 times daily for diuresis DEPRESSION Denies of any delusion or suicidal ideation Patient having significant short-term memory loss Will discontinue Lexapro, patient recently started on SSRI due to generalized anxiety anxiety disorder/depressive mood will DC Celexa and Neurontin-as family is concerned patient's current mental status could be due to drug reaction/side effect HISTORY OF GOUT No acute flare Continue allopurinol HISTORY OF COPD Respiratory status stable No wheeze Continue elipta as needed inhaler CODE STATUS: Full code DVT PROPHYLAXIS On Coumadin DISPOSITION PT OT evaluation prior to discharge Social service consulted for discharge planning And will need arrangement for outpatient dialysis Vital Signs: Date Time Temp Pulse Resp B/P (MAP) Pulse Ox O2 Delivery O2 Flow Rate FiO2 04/16/18 11:19 36.6 65 20 102/52 (69) 96 Nasal Cannula 2.0 04/16/18 08:00 Nasal Cannula 2.0 04/16/18 07:07 37.0 66 20 106/54 (71) 97 Nasal Cannula 2.0 04/16/18 04:12 Room Air 2.0 Nasal Cannula 04/16/18 03:30 36.9 63 18 101/57 (72) 95 Nasal Cannula 2.0 04/15/18 23:43 36.7 63 16 103/51 (68) 97 Room Air 04/15/18 20:00 Nasal Cannula 2.0 04/15/18 19:24 37.1 69 16 100/51 (67) 92 Nasal Cannula 2.0 04/15/18 15:00 36.8 65 16 119/62 (81) 92 Room Air Lab Results: Results Past 24 Hours Test 04/15/18 16:44 04/16/18 06:43 Range/Units Sodium Level 137 138 136-145 mmol/L Potassium Level 3.4 3.7 3.5-5.1 mmol/L Chloride Level 102 103 98-107 mmol/L Carbon Dioxide Level 23 24 21-32 mmol/L Anion Gap 12.0 12.0 3-11 mmol/L Blood Urea Nitrogen 93 92 7-18 mg/dl Creatinine 5.08 5.26 0.60-1.20 mg/dl Est Creatinine Clear Calc Drug Dose 7.3 7.1 ml/min Estimated GFR () 8.8 8.5 Estimated GFR (Non- 7.6 7.3 BUN/Creatinine Ratio 18.1 17.4 10-20 Random Glucose 103 87 70-99 mg/dl Calcium Level 8.8 8.6 8.5-10.1 mg/dl White Blood Count 5.02 4.8-10.8 K/uL Red Blood Count 2.96 4.2-5.4 M/uL Hemoglobin 10.0 12.0-16.0 g/dL Hematocrit 32.1 37-47 % Mean Corpuscular Volume 108.4 80-100 fL Mean Corpuscular Hemoglobin 33.8 25-34 pg Mean Corpuscular Hemoglobin Concent 31.2 32-36 g/dl Platelet Count 153 130-400 K/uL Neutrophils (%) (Auto) 65.1 % Lymphocytes (%) (Auto) 10.4 % Monocytes (%) (Auto) 18.7 % Eosinophils (%) (Auto) 4.8 % Basophils (%) (Auto) 0.8 % Neutrophils # (Auto) 3.27 1.4-6.5 K/uL Lymphocytes # (Auto) 0.52 1.2-3.4 K/uL Monocytes # (Auto) 0.94 0.11-0.59 K/uL Eosinophils # (Auto) 0.24 0-0.5 K/uL Basophils # (Auto) 0.04 0-0.2 K/uL RDW Standard Deviation 69.8 36.4-46.3 fL RDW Coefficient of Variation 19.4 11.5-14.5 % Immature Granulocyte % (Auto) 0.2 % Immature Granulocyte # (Auto) 0.01 0.00-0.02 K/uL Prothrombin Time 21.6 9.0-12.0 SECONDS Prothromb Time International Ratio 2.1 0.9-1.1 Magnesium Level 2.4 1.8-2.4 mg/dl
--- NOTE | 2018-04-16 17:09 | NEPHROLOGY PROGRESS NOTE ---
DATE: 04/16/2018 NEPHROLOGY PROGRESS NOTE SUBJECTIVE: Patient looks very weak, lethargic, feels cold. She has no appetite at all. She has been losing weight. She has no taste of food. Despite IV Lasix at the maximum dose, she really did not make any urine. PHYSICAL EXAMINATION: GENERAL: She is very sleepy and has her eyes closed. VITAL SIGNS: Most recent blood pressure 91/56, 91% on room air, pulse rate 103 per minute, temperature 37.1. HEENT: Mucous membrane is moist. NECK: Supple. Jugular venous distention present. CHEST: Bilateral decreased breath sounds, basilar crackles. CARDIOVASCULAR: Regular. ABDOMEN: Soft, nontender. EXTREMITIES: Show 1+ lower extremity edema. ASSESSMENT AND PLAN: Patient is a 77-year-old female with multiple medical problems both cardiac as well as pulmonary and chronic kidney disease stage V. At this time, she is clearly uremic and has all the classic hallmark symptoms of uremia and she needs to be started on dialysis. I spoke with the patient, her as well as a daughter and all 3 are in agreement that they would want to proceed with dialysis. This is not acute renal failure and this will be chronic maintenance hemodialysis, which means this will be continued even as an outpatient. She did have an AV fistula placed in November 2017, but I do not feel that this fistula will be ready to support dialysis. At this time we will have a tunneled dialysis catheter placed and start dialysis once the catheter is in place. Her AV fistula might need further workup to help with the maturation. At this time since the Lasix is not doing anything, we will discontinue all the diuretics at this time and will try to manage the fluid with dialysis. SAMMIE
[2018-04-16] MEDS: RANITIDINE HCL 150 MG TAB PO SCH (21:05)
[2018-04-16] MEDS: MONTELUKAST SOD 10 MG TAB PO SCH (21:05)
[2018-04-17] VITALS (17 sets, daily range): BP systolic 81–122; BP diastolic 45–75; PULSE 64–102; TEMP 36.4–36.8; O2SAT 91–96
[2018-04-17] MEDS ORDERED: CEFAZOLIN 1000MG IV PUSH 7.5 ML IV SCH (06:00)
[2018-04-17] MEDS: METOLAZONE 2.5 MG TAB PO SCH (06:04)
[2018-04-17] MEDS: FUROSEMIDE INJ 100 MG in SYRINGE 0 ML IV SCH (06:36)
[2018-04-17 07:14] LABS: BASO % 0.4 %; BASO ABS # 0.02 K/uL (0-0.2); EOS % 4.5 %; EOS ABS # 0.22 K/uL (0-0.5); HEMATOCRIT 31.8 % (37-47); IG# 0.01 K/uL (0.00-0.02); LYMPH % 16.3 %; MEAN CELL VOLUME 108.5 fL (80-100); MEAN CORPUSCULAR HEMOGLOBIN 34.1 pg (25-34); MEAN CORPUSCULAR HGB CONC 31.4 g/dl (32-36); MEAN PLATELET VOLUME 9.3 fL (7.4-10.4); MONO % 9.8 %; MONO ABS # 0.48 K/uL (0.11-0.59); NEUT % 68.8 %; NEUT ABS # 3.38 K/uL (1.4-6.5); PLATELET COUNT 151 K/uL (130-400); RED CELL DISTRIBUTION WIDTH CV 19.3 % (11.5-14.5); RED CELL DISTRIBUTION WIDTH SD 69.3 fL (36.4-46.3); WHITE BLOOD COUNT 4.91 K/uL (4.8-10.8)
[2018-04-17 07:21] LABS: INR 1.7 (0.9-1.1)
[2018-04-17] MEDS: ALLOPURINOL 100 MG TAB PO SCH (07:46)
[2018-04-17] MEDS: ISOSORBIDE MONONITRATE 60 MG TABCR PO SCH (07:46)
[2018-04-17] MEDS: CYANOCOBALAMIN 500 MCG TAB (VIT B-12) PO SCH (07:46)
[2018-04-17] MEDS: POTASSIUM CHLORIDE 20 MEQ TABCR PO SCH ×2 (07:47→20:54)
[2018-04-17] MEDS: ASCORBIC ACID 500 MG TAB PO SCH (07:47)
[2018-04-17] MEDS: LEVOTHYROXINE 25 MCG TAB PO SCH (07:48)
[2018-04-17] MEDS: PANTOprazole SOD 40 MG TAB PO SCH ×2 (07:48→20:56)
[2018-04-17] MEDS: METOPROLOL TARTRATE 50 MG TAB PO SCH ×2 (07:49→20:55)
[2018-04-17 07:55] LABS: CALCIUM 8.8 mg/dl (8.5-10.1); CREATININE 5.4 mg/dl (0.60-1.20); POTASSIUM 3.7 mmol/L (3.5-5.1)
[2018-04-17 09:44] LABS: HEP C IGG 13 YRS+OLDER_RFLX NEG (NEG)
--- NOTE | 2018-04-17 10:20 | Medical Consult ---
Consultation Note Date of Service Apr 17, 2018. Consultation Note CC: End stage renal disease HPI: 77 yo f with multiple medical problems, including ESRD, known to Dr Elena for L wrist AVF creation in 11/2017, seen in consultation for HD access. Pt unable to provide hx d/t current medical status. Per chart and family, pt admitted 2 days ago and noted to have worsening renal fxn. Permcath requested by nephrology for access. ALLERGIES: INCLUDE AMLODIPINE. HOME MEDICATIONS: Reconciled on the chart and include the following: Calcitriol, Coumadin, folic acid, gabapentin, guaifenesin, hydralazine, Imdur, Lasix, levothyroxine, Lopressor, nitroglycerin, pantoprazole, potassium chloride , ranitidine, Singulair, spironolactone, trazodone, vitamin B12, vitamin D, Voltaren topical gel and Zyloprim. PAST MEDICAL HISTORY: Positive for coronary artery disease and hypertension as well as congestive heart failure and valvular disease, chronic kidney disease, dyslipidemia, atrial fibrillation, rheumatic heart disease, gout, hypothyroidism. PAST SURGICAL HISTORY: Includes an aortic valve replacement with mechanical valve, an EGD a total hysterectomy, left total hip arthroplasty, mitral valve replacement with mechanical valve, a right total hip arthroplasty and thyroidectomy. FAMILY HISTORY: Positive for dementia and stroke in her mother and heart disease and hypertension in her father. SOCIAL HISTORY: Positive for tobacco use. The patient continues to smoke 1 pack a day. She also drinks 1 glass of wine daily. REVIEW OF SYSTEMS: Positive for fatigue. Unable to obtain further d/t current medical status. PHYSICAL EXAMINATION: Constitutional: In general, patient is a frail, chronically ill-appearing elderly female in no acute distress. She is alert and oriented x1. Her head is normocephalic, atraumatic. Eyes are EOMI. ENMT demonstrates no hearing loss, rhinorrhea or pharyngeal erythema. Neck is supple, nontender with midline trachea without masses or crepitus. Lung exam demonstrates no dyspnea. They are decreased throughout with an occasional expiratory wheeze and a coarse sounding cough. Her heart demonstrates a regular rhythm. There is a murmur as well as a click. Her peripheral pulses are full and equal in all extremities unless otherwise noted, specifically they are normal in carotid, brachial and radial pulses. L forearm AVF with excellent thrill/bruit, some branches noted distally. Her femoral pulses are +2 lower extremity distal pulses are +1. She has brisk capillary refill and no signs of distal ischemia. Abdomen is soft, nontender, with active bowel sounds and no flank or CVA tenderness. Bilateral upper extremities demonstrate no cyanosis, edema, clubbing, varicosities or ulcers. Bilateral lower extremities demonstrate no cyanosis, edema, clubbing, varicosities or ulcers. Neurologically, patient has grossly intact cranial nerves and grossly intact sensation. ASSESSMENT and PLAN: End-stage renal disease Pt schedule for permcath insertion in OR later today. AVF may possibly be matured, will have HD RN eval for use before permcath insertion and they will page me after.
[2018-04-17] MEDS: ONDANSETRON INJ 2 MG/ML 2 ML VIAL IV PRN ×2 (11:38→23:53)
--- NOTE | 2018-04-17 11:49 | PROGRESS NOTE ---
DATE: 04/17/2018 SUBJECTIVE: Patient feels very weak, lethargic, with some nausea, poor appetite, and nothing tastes good. She also feels very cold. All of these are symptoms of uremia. PHYSICAL EXAMINATION: VITAL SIGNS: Blood pressure 116/60, 94% on 2 L nasal cannula, pulse rate 74 per minute, temperature 36.6. HEENT: Mucous membrane is moist. NECK: Supple. Jugular venous distention present. CHEST: Bilateral decreased breath sounds, basilar crackles. CARDIOVASCULAR SYSTEM: S1 and S2 regular, 3/6 systolic murmur heard. GASTROINTESTINAL: Abdomen is soft and nontender. VASCULAR: Extremities show trace edema. LABORATORY DATA: Laboratory from this morning shows a hemoglobin of 10, WBC count of 4.91, platelet count 151. Sodium 138, potassium 3.7, creatinine is 5.4, BUN is 97. Calcium 8.8. ASSESSMENT AND PLAN: A 77-year-old female with multiple medical problems, both cardiac as well as pulmonary and chronic kidney disease stage V even at baseline. At this time, she is clearly uremic and has all the classic hallmark symptoms of uremia, and she needs to be started on dialysis. I have spoken with the patient, her as well as 2 of her daughters, and all are in agreement that they would want to proceed with dialysis. She has an AV fistula, which may or may not be enough to support dialysis. At this time, we are hoping that we will be able to support dialysis through this fistula and will give it a try later today. If the AV fistula is not able to support dialysis, she will need a tunneled dialysis catheter placed. Will do for 2 hours dialysis today. No fluid off. No heparin. No medications. She will also have dialysis again tomorrow for 3 hours, and then, she will have to be arranged for an outpatient dialysis by the case packer.
--- NOTE | 2018-04-17 19:45 | Progress Note ---
Internal Med Progress Note Date of Service: Apr 17, 2018. Provider Documentation: SUBJECTIVE: Had dialysis today Still feels very poorly Tired and wiped out OBJECTIVE: Vital Signs-as noted below Exam: General-elderly female, chronically ill appearing no sign of distress Eyes-sclera nonicteric, pupils bilateral equal reactive light extraocular muscle intact ENT-moist oral mucosa Neck-supple, no JVD, no carotid bruit, thyromegaly, trachea midline Lungs-diminished, bibasilar Heart-regular Abdomen-soft nontender Extremities-no lower extremity edema, no rash or deformity Neuro-no focal neurological deficit, generalized weakness, lethargy Lab data as noted below. ASSESSMENT & PLAN: JUAN C ON CKD STAGE IV Patient was sent by nephrology for volume overload, wt gain( Increased weight gain -117 pounds on 04/09/18 to 125 pound)/worsening of renal function with increased creatinine~5 Appreciate input from nephrology Patient started on dialysis , able to use left arm AV fistula Patient will need to stay over the weekend for sequential dialysis treatment Plan to discharge home early next week with an arrangement of outpatient dialysis ANEMIA OF CHRONIC DISEASE/DUE TO END-STAGE RENAL DISEASE Hemoglobin remained stable ACUTE CHF WITH DIASTOLIC HEART FAILURE Secondary to renal insufficiency/JUAN C-leading to volume overload Echo on 05/2017 showed resolved LVEF with grade 2 diastolic dysfunction ECHO Patient started on dialysis HISTORY OF RHEUMATIC HEART DISEASE/ Status post mitral and aortic valve replacement with prosthetic/mechanical valve Echocardiogram Continue Coumadin Monitor PT/INR Goal INR 2.5-3.5 HISTORY OF CHRONIC A. FIB Rate controlled on Lopressor Chronic anticoagulation with Coumadin HYPOTHYROIDISM On Synthroid CONFUSION/LETHARGY/METABOLIC ENCEPHALOPATHY Possible secondary to uremia 10 started on scheduled dialysis At baseline patient is fairly independent, able to cook and clean and take care of her elderly Presents with confusion, lethargy, poor appetite, decreased responsiveness SSRI -Lexapro and Neurontin as family is concerned about for possible side effect of sedation Avoid anxiolytic hypnotic/narcotic pain medications GERD Continue PPI, H2 ida /Zantac HYPERTENSION Blood pressure improved after starting on dialysis Continue Lopressor, hydralazine, Imdur DEPRESSION Denies of any delusion or suicidal ideation Patient having significant short-term memory loss Lexapro discontinue, patient recently started on SSRI due to generalized anxiety anxiety disorder/depressive mood Neurontin discontinued-as family is concerned patient's current mental status could be due to drug reaction/side effect HISTORY OF GOUT No acute flare Continue allopurinol HISTORY OF COPD Respiratory status stable No wheeze Continue elipta as needed inhaler CODE STATUS: Full code DVT PROPHYLAXIS On Coumadin DISPOSITION PT OT evaluation prior to discharge Social service consulted for discharge planning And will need arrangement for outpatient dialysis Vital Signs: Date Time Temp Pulse Resp B/P (MAP) Pulse Ox O2 Delivery O2 Flow Rate FiO2 04/17/18 16:00 Nasal Cannula 2.0 04/17/18 15:59 36.4 67 20 122/67 (85) 96 Nasal Cannula 2.0 04/17/18 15:08 36.6 68 114/71 (85) 04/17/18 15:00 74 81/59 04/17/18 14:45 74 112/75 04/17/18 14:30 71 116/58 04/17/18 14:15 70 109/59 04/17/18 14:00 71 112/61 04/17/18 13:45 68 109/61 04/17/18 13:30 102 114/68 04/17/18 13:15 102 107/58 04/17/18 13:05 36.5 74 107/55 (72) 04/17/18 12:13 36.4 71 18 109/55 (73) 94 04/17/18 08:00 Nasal Cannula 2.0 04/17/18 07:53 74 116/60 (78) 04/17/18 03:45 36.6 64 18 105/63 (77) 94 Nasal Cannula 2.0 04/16/18 23:59 Nasal Cannula 2.0 04/16/18 23:35 36.5 68 16 110/55 (73) 94 Nasal Cannula 2.0 04/16/18 20:10 36.9 66 19 109/54 (72) 97 Room Air Lab Results: Results Past 24 Hours Test 04/17/18 06:59 Range/Units White Blood Count 4.91 4.8-10.8 K/uL Red Blood Count 2.93 4.2-5.4 M/uL Hemoglobin 10.0 12.0-16.0 g/dL Hematocrit 31.8 37-47 % Mean Corpuscular Volume 108.5 80-100 fL Mean Corpuscular Hemoglobin 34.1 25-34 pg Mean Corpuscular Hemoglobin Concent 31.4 32-36 g/dl Platelet Count 151 130-400 K/uL Mean Platelet Volume 9.3 7.4-10.4 fL Neutrophils (%) (Auto) 68.8 % Lymphocytes (%) (Auto) 16.3 % Monocytes (%) (Auto) 9.8 % Eosinophils (%) (Auto) 4.5 % Basophils (%) (Auto) 0.4 % Neutrophils # (Auto) 3.38 1.4-6.5 K/uL Lymphocytes # (Auto) 0.80 1.2-3.4 K/uL Monocytes # (Auto) 0.48 0.11-0.59 K/uL Eosinophils # (Auto) 0.22 0-0.5 K/uL Basophils # (Auto) 0.02 0-0.2 K/uL RDW Standard Deviation 69.3 36.4-46.3 fL RDW Coefficient of Variation 19.3 11.5-14.5 % Immature Granulocyte % (Auto) 0.2 % Immature Granulocyte # (Auto) 0.01 0.00-0.02 K/uL Prothrombin Time 17.8 9.0-12.0 SECONDS Prothromb Time International Ratio 1.7 0.9-1.1 Sodium Level 138 136-145 mmol/L Potassium Level 3.7 3.5-5.1 mmol/L Chloride Level 103 98-107 mmol/L Carbon Dioxide Level 25 21-32 mmol/L Anion Gap 11.0 3-11 mmol/L Blood Urea Nitrogen 97 7-18 mg/dl Creatinine 5.40 0.60-1.20 mg/dl Est Creatinine Clear Calc Drug Dose 6.9 ml/min Estimated GFR () 8.2 Estimated GFR (Non- 7.1 BUN/Creatinine Ratio 17.9 10-20 Random Glucose 87 70-99 mg/dl Calcium Level 8.8 8.5-10.1 mg/dl Magnesium Level 2.3 1.8-2.4 mg/dl Hepatitis B Surface Antigen NEG NEG Hepatitis B Surface Antibody POS Hepatitis C Antibody NEG NEG
[2018-04-17] MEDS: MONTELUKAST SOD 10 MG TAB PO SCH (20:55)
[2018-04-17] MEDS: RANITIDINE HCL 150 MG TAB PO SCH (20:56)
[2018-04-18] VITALS (13 sets, daily range): BP systolic 111–128; BP diastolic 52–67; PULSE 66–77; TEMP 36.4–37.2; O2SAT 84–99; Ht 157.5 cm; Wt 51.8 kg
[2018-04-18] MEDS: LEVOTHYROXINE 25 MCG TAB PO SCH (05:25)
[2018-04-18] MEDS: METOLAZONE 2.5 MG TAB PO SCH (05:25)
[2018-04-18] MEDS: ISOSORBIDE MONONITRATE 60 MG TABCR PO SCH (07:51)
[2018-04-18] MEDS: PANTOprazole SOD 40 MG TAB PO SCH ×2 (07:51→19:55)
[2018-04-18] MEDS: ALLOPURINOL 100 MG TAB PO SCH (07:51)
[2018-04-18] MEDS: CYANOCOBALAMIN 500 MCG TAB (VIT B-12) PO SCH (07:52)
[2018-04-18] MEDS: METOPROLOL TARTRATE 50 MG TAB PO SCH ×2 (07:52→19:54)
[2018-04-18] MEDS: ASCORBIC ACID 500 MG TAB PO SCH (07:52)
[2018-04-18] MEDS: POTASSIUM CHLORIDE 20 MEQ TABCR PO SCH ×2 (07:53→19:55)
[2018-04-18 08:05] LABS: INR 1.5 (0.9-1.1)
--- NOTE | 2018-04-18 08:51 | DIAGNOSTIC IMAGING REPORT ---
CT HEAD WITHOUT CONTRAST (CT) CLINICAL HISTORY: Acute change in mental status COMPARISON STUDY: No previous studies for comparison. TECHNIQUE: Axial CT of the brain is performed from the vertex to the skull base. IV contrast was not administered for this examination. A dose lowering technique was utilized adhering to the principles of ALARA. CT DOSE: 614.27 mGy.cm FINDINGS: No intra or extra-axial mass lesions are visualized. There is no CT evidence of acute cortical infarction. There is no evidence of midline shift. There is no acute hemorrhage. No calvarial fractures are visualized. There are moderate white matter hypodensities likely on a small vessel basis. 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 There is no evidence of pathologic ventricular dilatation. There is no evidence of acute sinusitis IMPRESSION: No acute intracranial findings Electronically signed by: Oziel Morelos M.D. 04/18/2018 8:50 AM Dictated Date/Time: 04/18/2018 8:49 AM
[2018-04-18 11:30] LABS: CALCIUM 8.8 mg/dl (8.5-10.1); CREATININE 4.68 mg/dl (0.60-1.20); POTASSIUM 3.9 mmol/L (3.5-5.1)
--- NOTE | 2018-04-18 13:41 | NEPHROLOGY PROGRESS NOTE ---
DATE: 04/18/2018 SUBJECTIVE: The patient looks very weak, lethargic, feels cold. She has no appetite at all. She has been losing weight. She has no taste of food. She is not really making much urine. She had her first dialysis yesterday through her AV fistula and it worked okay. Her mental status has been waxing and waning and daughter is very concerned that this is related with dialysis. PHYSICAL EXAMINATION: VITAL SIGNS: Blood pressure is 128/56, 99% on room air, pulse rate 70 per minute, temperature 36.8. GENERAL: The patient looks very cachectic, frail, and she is clearly in encephalopathy. HEENT: Mucous membrane is moist. NECK: Supple. Jugular venous distention is present. CHEST: Bilateral very decreased breath sounds, poor inspiratory effort, basilar crackles bilateral. CARDIOVASCULAR: Regular rate and rhythm. Soft systolic murmur heard. ABDOMEN: Soft, nontender. EXTREMITIES: Shows no edema. LABORATORY TESTS: Hemoglobin 10, WBC count 4.91. Platelet count 151. Sodium 137, potassium 3.9, BUN 68, creatinine 4.68, calcium 8.8. ASSESSMENT AND PLAN: The patient is a 77-year-old female with multiple medical problems, both cardiac as well as pulmonary and chronic kidney disease stage V. At this time, she is clearly uremic and has all the classic hallmark symptoms of uremia. End-stage renal disease: She will have her next dialysis later today for 3 hours. Her daughter was very concerned that her mental status got worse after dialysis yesterday, but this is purely coincidence as she has metabolic encephalopathy from a combination of renal failure, heart failure, and pulmonary failure, but at this time the primary cause of her encephalopathy is uremia and this can only get better with some dialysis. I had a long discussion that the patient has multiple medical problems and she is very weak and frail and there is no guarantee that her medical status will turn around with dialysis, but we should give her at least couple of weeks of outpatient dialysis before we made a decision about long-term dialysis. She is agreeable with the plan. At this time, she has agreed to have dialysis later today. SAMMIE
[2018-04-18] MEDS: BOOST GLUCOSE CONTROL VANILLA PO SCH (16:55)
--- NOTE | 2018-04-18 17:42 | Progress Note ---
Internal Med Progress Note Date of Service: Apr 18, 2018. Provider Documentation: Saw [id number] SUBJECTIVE: Patient continues to feel very weak and tired, appetite remains very poor Having episodes of confusion no fever or chills no hypoxia or orthopnea noted. OBJECTIVE: Vital Signs-as noted below Exam: General-elderly female, chronically ill appearing no sign of distress Eyes-sclera nonicteric, pupils bilateral equal reactive light extraocular muscle intact ENT-moist oral mucosa Neck-supple, no JVD, no carotid bruit, thyromegaly, trachea midline Lungs-diminished, bibasilar Heart-regular Abdomen-soft nontender Extremities-no lower extremity edema, no rash or deformity Neuro-no focal neurological deficit, generalized weakness, lethargy Lab data as noted below. ASSESSMENT & PLAN: JUAN C ON CKD STAGE IV Patient was sent by nephrology for volume overload, wt gain( Increased weight gain -117 pounds on 04/09/18 to 125 pound)/worsening of renal function with increased creatinine~5 Appreciate input from nephrology Patient started on dialysis yesterday 04/17/2018 , able to use left arm AV fistula Daughter present at bedside, very concerned Thinks her worsening of mental status could be due to dialysis itself Family is counseled I myself and nephrology Dr. sharif Patient's lethargy, declined in functional activity, confusion most likely related to uremia secondary to acute renal failure Symptom supposed to get improved with continued dialysis Patient had her first treatment of dialysis yesterday Scheduled for another dialysis today ANEMIA OF CHRONIC DISEASE/DUE TO END-STAGE RENAL DISEASE Hemoglobin remained stable ACUTE CHF WITH DIASTOLIC HEART FAILURE Secondary to renal insufficiency/JUAN C-leading to volume overload Echo on 05/2017 showed resolved LVEF with grade 2 diastolic dysfunction Patient started on dialysis expected volume status to improve with continued dialysis treatment HISTORY OF RHEUMATIC HEART DISEASE/ Status post mitral and aortic valve replacement with prosthetic/mechanical valve Coumadin was on hold on admission as INR was elevated more than 3 INR subtherapeutic 1.5 today Coumadin resumed bridge therapy with IV heparin weight-based protocol until INR 2.5 HISTORY OF CHRONIC A. FIB Rate controlled on Lopressor Chronic anticoagulation with Coumadin Started on IV heparin weight-based protocol due to subtherapeutic INR HYPOTHYROIDISM On Synthroid CONFUSION/LETHARGY/METABOLIC ENCEPHALOPATHY worsening Possible secondary to uremia? CT Head w/o contrast no evidence of acute CVA started on scheduled dialysis At baseline patient was fairly independent, able to cook and clean and take care of her elderly Presents with confusion, lethargy, poor appetite, decreased responsiveness SSRI -Lexapro and Neurontin as family is concerned about for possible side effect of sedation Avoid anxiolytic hypnotic/narcotic pain medications GERD Continue PPI, H2 ida /Zantac HYPERTENSION Blood pressure improved after starting on dialysis Continue Lopressor, hydralazine, Imdur DEPRESSION Denies of any delusion or suicidal ideation Patient having significant short-term memory loss/confusion -due to metabolic encephalopathy associated with ESRD Lexapro discontinue, patient recently started on SSRI due to generalized anxiety anxiety disorder/depressive mood Neurontin discontinued-as family is concerned patient's current mental status could be due to drug reaction/side effect HISTORY OF GOUT No acute flare Continue allopurinol HISTORY OF COPD Respiratory status stable No wheeze Continue elipta as needed inhaler CODE STATUS: Full code DVT PROPHYLAXIS On Coumadin/IV heparin bridge till INR > 2.5 DISPOSITION PT OT evaluation prior to discharge Social service consulted for discharge planning And will need arrangement for outpatient dialysis Vital Signs: Date Time Temp Pulse Resp B/P (MAP) Pulse Ox O2 Delivery O2 Flow Rate FiO2 04/19/18 08:20 Nasal Cannula 3.0 04/19/18 07:17 36.8 68 18 110/58 (75) 98 Nasal Cannula 3.0 04/19/18 04:11 36.4 69 14 126/60 (82) 95 Nasal Cannula 3.0 04/18/18 23:52 36.5 70 15 117/62 (80) 97 Nasal Cannula 3.0 04/18/18 20:10 36.4 67 22 116/57 (76) 97 Nasal Cannula 3.0 04/18/18 20:00 97 Nasal Cannula 2.0 04/18/18 16:09 37.1 74 19 124/63 (83) 96 04/18/18 16:00 99 Nasal Cannula 2.0 04/18/18 13:35 37.2 72 121/59 (79) 04/18/18 13:15 70 126/67 04/18/18 13:04 76 114/61 04/18/18 12:55 37.2 77 125/62 (83) 04/18/18 12:14 36.8 70 99 128/56 (80) 99 Room Air Lab Results: Results Past 24 Hours Test 04/18/18 10:48 04/18/18 18:56 04/19/18 01:31 04/19/18 08:25 Range/Units Sodium Level 137 136-145 mmol/L Potassium Level 3.9 3.5-5.1 mmol/L Chloride Level 101 98-107 mmol/L Carbon Dioxide Level 25 21-32 mmol/L Anion Gap 11.0 3-11 mmol/L Blood Urea Nitrogen 68 7-18 mg/dl Creatinine 4.68 0.60-1.20 mg/dl Est Creatinine Clear Calc Drug Dose 8.0 ml/min Estimated GFR () 9.7 Estimated GFR (Non- 8.4 BUN/Creatinine Ratio 14.6 10-20 Random Glucose 77 70-99 mg/dl Calcium Level 8.8 8.5-10.1 mg/dl Activated Partial Thromboplast Time 30.6 35.3 42.2 21.0-31.0 SECONDS Partial Thromboplastin Ratio 1.2 1.4 1.6 White Blood Count 5.65 4.8-10.8 K/uL Red Blood Count 2.89 4.2-5.4 M/uL Hemoglobin 9.8 12.0-16.0 g/dL Hematocrit 31.3 37-47 % Mean Corpuscular Volume 108.3 80-100 fL Mean Corpuscular Hemoglobin 33.9 25-34 pg Mean Corpuscular Hemoglobin Concent 31.3 32-36 g/dl Platelet Count 148 130-400 K/uL Neutrophils (%) (Auto) 69.0 % Lymphocytes (%) (Auto) 17.2 % Monocytes (%) (Auto) 8.3 % Eosinophils (%) (Auto) 5.1 % Basophils (%) (Auto) 0.4 % Neutrophils # (Auto) 3.90 1.4-6.5 K/uL Lymphocytes # (Auto) 0.97 1.2-3.4 K/uL Monocytes # (Auto) 0.47 0.11-0.59 K/uL Eosinophils # (Auto) 0.29 0-0.5 K/uL Basophils # (Auto) 0.02 0-0.2 K/uL RDW Standard Deviation 69.6 36.4-46.3 fL RDW Coefficient of Variation 19.7 11.5-14.5 % Immature Granulocyte % (Auto) 0.0 % Immature Granulocyte # (Auto) 0.00 0.00-0.02 K/uL Nucleated RBC Absolute Count (auto) 0.02 0-0 K/uL Nucleated Red Blood Cells % 0.3 % Platelet Estimate NORMAL Basophilic Stippling OCCASIONAL Anisocytosis PRESENT Macrocytosis PRESENT Schistocytes 1+ Prothrombin Time 15.7 9.0-12.0 SECONDS Prothromb Time International Ratio 1.5 0.9-1.1 Test 04/19/18 09:49 04/19/18 09:51 Range/Units
[2018-04-18] MEDS ORDERED: WARFARIN SOD 6 MG TAB PO ONE (18:00)
[2018-04-18] MEDS ORDERED: HEPARIN IV LOW DOSE NO BOLUS SCH (18:00)
[2018-04-18 19:24] LABS: PTT PATIENT 30.6 SECONDS (21.0-31.0)
[2018-04-18] MEDS: HEPARIN 25,000 UNIT/500ML D5W 500 ML IV SCH (19:46)
[2018-04-18] MEDS: MONTELUKAST SOD 10 MG TAB PO SCH (19:54)
[2018-04-18] MEDS: RANITIDINE HCL 150 MG TAB PO SCH (19:55)
[2018-04-19] VITALS (31 sets, daily range): BP systolic 83–145; BP diastolic 43–110; PULSE 68–76; TEMP 36.4–36.8; O2SAT 91–100
[2018-04-19 01:51] LABS: PTT PATIENT 35.3 SECONDS (21.0-31.0)
[2018-04-19] MEDS ORDERED: HEPARIN IV BOLUS 4,000 UNIT in SYRINGE 0 ML IV ONE (02:45)
[2018-04-19] MEDS: HEPARIN 25,000 UNIT/500ML D5W 500 ML IV SCH ×2 (03:03→10:24)
[2018-04-19] MEDS: METOLAZONE 2.5 MG TAB PO SCH (05:37)
[2018-04-19] MEDS: LEVOTHYROXINE 25 MCG TAB PO SCH (06:01)
[2018-04-19] MEDS: ACETAMINOPHEN 325 MG TAB PO PRN ×2 (08:11→18:59)
[2018-04-19] MEDS: BOOST GLUCOSE CONTROL VANILLA PO SCH ×2 (08:41→16:24)
[2018-04-19 08:49] LABS: MEAN CORPUSCULAR HGB CONC 31.3 g/dl (32-36); NUCLEATED RED BLOOD CELL ABS 0.02 K/uL (0-0)
[2018-04-19] MEDS: CYANOCOBALAMIN 500 MCG TAB (VIT B-12) PO SCH (09:00)
[2018-04-19] MEDS: PANTOprazole SOD 40 MG TAB PO SCH ×2 (09:00→20:13)
[2018-04-19] MEDS: METOPROLOL TARTRATE 50 MG TAB PO SCH ×2 (09:00→20:13)
[2018-04-19] MEDS: POTASSIUM CHLORIDE 20 MEQ TABCR PO SCH ×2 (09:00→20:13)
[2018-04-19] MEDS: ISOSORBIDE MONONITRATE 60 MG TABCR PO SCH (09:00)
[2018-04-19] MEDS: ASCORBIC ACID 500 MG TAB PO SCH (09:00)
[2018-04-19 09:04] LABS: HEMATOCRIT 31.3 % (37-47); HEMOGLOBIN 9.8 g/dL (12.0-16.0); MEAN CELL VOLUME 108.3 fL (80-100); MEAN CORPUSCULAR HEMOGLOBIN 33.9 pg (25-34); RED CELL DISTRIBUTION WIDTH CV 19.7 % (11.5-14.5); RED CELL DISTRIBUTION WIDTH SD 69.6 fL (36.4-46.3); WHITE BLOOD COUNT 5.65 K/uL (4.8-10.8)
[2018-04-19 09:11] LABS: INR 1.5 (0.9-1.1); PTT PATIENT 42.2 SECONDS (21.0-31.0)
[2018-04-19 09:12] LABS: PLATELET COUNT 148 K/uL (130-400)
[2018-04-19 09:13] LABS: BASO % 0.4 %; BASO ABS # 0.02 K/uL (0-0.2); EOS % 5.1 %; EOS ABS # 0.29 K/uL (0-0.5); LYMPH % 17.2 %; LYMPH ABS # 0.97 K/uL (1.2-3.4); MONO % 8.3 %; MONO ABS # 0.47 K/uL (0.11-0.59)
[2018-04-19] MEDS ORDERED: HEPARIN IV BOLUS 2,000 UNIT in SYRINGE 0 ML IV ONE (10:00)
--- NOTE | 2018-04-19 10:12 | DIAGNOSTIC IMAGING REPORT ---
CHEST ONE VIEW PORTABLE CLINICAL HISTORY: SOB /pleural effusion dyspnea COMPARISON STUDY: 04/15/2018 FINDINGS: Mild increase in volume of bilateral pleural effusions. Moderate stable cardia megaly. Prominent pulmonary vasculature. IMPRESSION: Findings of mildly progressive congestive failure. Slight increase in volume of bilateral pleural effusions. The above report was generated using voice recognition software. It may contain grammatical, syntax or spelling errors. Electronically signed by: Jorge Lindo M.D. 04/19/2018 10:11 AM Dictated Date/Time: 04/19/2018 10:11 AM
[2018-04-19] MEDS ORDERED: METOLAZONE 5 MG TAB PO ONE (10:15)
[2018-04-19] MEDS ORDERED: LEVALBUTEROL 1.25MG/0.5ML NEB INH PRN (10:30)
[2018-04-19] MEDS ORDERED: FUROSEMIDE INJ 80 MG in SYRINGE 0 ML IV ONE (10:30)
[2018-04-19] MEDS ORDERED: FUROSEMIDE INJ 100 MG in SYRINGE 0 ML IV ONE (10:30)
--- NOTE | 2018-04-19 10:32 | Critical Care Consultation ---
Critical Care Consultation Date of Consultation: Apr 19, 2018. Attending Physician: Margarita Hernandez M.D. Reason for Consultation: End-stage renal disease volume overload History of Present Illness Patient is a 77-year-old female significant history for worsening stage IV chronic kidney disease who has recently started dialysis. She is on Coumadin for atrial fibrillation. Patient had undergone a AV fistula placement in November 2017, however it is unable to be utilized. Patient has failed medical management of volume overload with intensive diuretics and low salt diet. She is transferred to the ICU in the setting of volume overload needing urgent dialysis for volume overload and associated azotemia. Past Medical/Surgical History As noted above History rheumatic heart disease History gout History hypothyroidism History congestive heart failure Past surgical history includes history of aortic valve replacement in 1996 along with mitral valve in 1996 both mechanical Family History Stroke MOTHER Social History Smoking Status: Current Every Day Smoker Drug Use: none Marital Status: Housing Status: lives with family Occupation Status: retired Allergies Coded Allergies: Amlodipine (Verified Allergy, Unknown, edema per medical record, 04/14/18) Home Medications Scheduled Allopurinol (Zyloprim), 100 MG PO QAM Calcitriol (Rocaltrol Cap), 1 CAP PO 2XWK Cyanocobalamin (Vitamin B-12 1000 Mcg), 1 TAB PO afternoon Escitalopram (Lexapro), 10 MG PO QPM Folic Acid (Folic Acid), 1 MG PO QAM Furosemide (Lasix), 160 MG PO BID Gabapentin (Neurontin), 100 MG PO HS Hydralazine Hcl (Apresoline), 50 MG PO TID Iron-Vitamin C (Vitron-C), 1 TAB PO QAM Isosorbide Mononitrate Ext Rel (Imdur Ext Rel), 60 MG PO QAM Levothyroxine Sodium (Synthroid), 25 MCG PO QAM Metoprolol Tartrate (Lopressor), 50 MG PO BID Montelukast Sodium (Montelukast Sodium), 1 TAB PO late afternoon Nitroglycerin (Nitrostat), 0.4 MG UT PRN Pantoprazole (Protonix), 40 MG PO BID Potassium Ext Rel (Klor-Con), 20 MEQ PO BID Ranitidine (Zantac), 300 MG PO HS Umeclidinium-Vilanterol (Anoro Ellipta 62.5-25 Mcg/INH), 1 PUFFS INH DAILY Warfarin Sod (Coumadin), 3.75 MG PO DAILY Scheduled PRN Albuterol Hfa (Ventolin Hfa), 2 PUFFS INH Q4 PRN for SOB/Wheezing Diclofenac Sodium (Topical) (Voltaren 1% Top Gel), 1 APPLN TOP QID PRN for Pain Guaifenesin (Organ-I Nr), 200 MG PO Q8 PRN for Cough Metolazone (Zaroxolyn), 5 MG PO DAILY PRN for Current Inpatient Medications Current Inpatient Medications Medications (Trade) Dose Ordered Sig/Shana Route Start Time Stop Time Status Last Admin Dose Admin Acetaminophen (Tylenol Tab) 650 mg Q4H PRN PO 04/14/18 22:45 05/14/18 22:44 04/19/18 08:11 650 MG Al Hydrox/Mg Hydrox/Simethicone (Maalox Max Susp) 15 ml Q4H PRN PO 04/14/18 22:45 05/14/18 22:44 Ondansetron HCl (Zofran Inj) 4 mg Q6H PRN IV 04/14/18 22:45 05/14/18 22:44 04/17/18 23:53 4 MG Nitroglycerin (Nitrostat Tab) 0.4 mg UD PRN SL 04/14/18 22:45 05/14/18 22:44 Polyethylene (Miralax Powder Packet) 17 gm DAILY PRN PO 04/14/18 22:45 05/14/18 22:44 Albuterol (Ventolin Hfa Inhaler) 2 puffs Q4 PRN INH 04/14/18 22:45 05/14/18 22:44 Allopurinol (Zyloprim Tab) 100 mg QAM PO 04/15/18 09:00 05/15/18 08:59 Future Hold 04/18/18 07:51 100 MG Calcitriol (Rocaltrol Cap) 0.25 mcg MoTh@1200 PO 04/16/18 12:00 05/16/18 11:59 04/16/18 12:34 0.25 MCG Cyanocobalamin (Vitamin B-12 Tab) 1,000 mcg DAILY PO 04/15/18 09:00 05/15/18 08:59 04/18/18 07:52 1,000 MCG Diclofenac Sodium (Voltaren 1% Top Gel) 1 appln QID PRN EXT 04/14/18 22:45 05/14/18 22:44 Folic Acid (Folvite Tab) 1 mg QAM PO 04/15/18 09:00 05/15/18 08:59 04/18/18 07:52 1 MG Guaifenesin (Organidin Nr Tab) 200 mg Q8 PRN PO 04/14/18 22:45 05/14/18 22:44 04/15/18 07:34 200 MG Hydralazine HCl (Apresoline Tab) 50 mg TID PO 04/15/18 09:00 05/15/18 08:59 04/18/18 19:55 50 MG Isosorbide Mononitrate (Imdur Ext Rel Tab) 60 mg QAM PO 04/15/18 09:00 05/15/18 08:59 04/18/18 07:51 60 MG Levothyroxine Sodium (Synthroid Tab) 25 mcg DAILYBB PO 04/15/18 06:00 05/15/18 05:59 04/19/18 06:01 25 MCG Metoprolol Tartrate (Lopressor Tab) 50 mg BID PO 04/15/18 09:00 05/15/18 08:59 04/18/18 19:54 50 MG Montelukast Sodium (Singulair Tab) 10 mg PM PO 04/15/18 21:00 05/15/18 20:59 Future Hold 04/18/18 19:54 10 MG Pantoprazole Sodium (Protonix Tab) 40 mg BID PO 04/15/18 09:00 05/15/18 08:59 04/18/18 19:55 40 MG Potassium Chloride (Klor-Con Tab) 20 meq BID PO 04/15/18 09:00 05/15/18 08:59 04/18/18 19:55 20 MEQ Ascorbic Acid (Vitamin C Tab) 500 mg QAM PO 04/15/18 09:00 05/15/18 08:59 04/18/18 07:52 500 MG Ranitidine HCl (zANTac TAB) 300 mg HS PO 04/15/18 21:00 05/15/18 20:59 04/18/18 19:55 300 MG Miscellaneous Information (Order Awaiting Action) 1 ea QS N/A 04/15/18 00:00 05/15/18 00:00 Metolazone (Zaroxolyn Tab) 2.5 mg QAM@0530 PO 04/16/18 05:30 05/16/18 05:29 04/19/18 05:37 2.5 MG Enteral Nutritional Formula (Boost Glucose Control) 1 can BIDM PO 04/18/18 16:45 05/18/18 16:44 04/19/18 08:41 1 CAN Warfarin Sodium (Coumadin Tab) 6 mg DAILY@16 PO 04/19/18 16:00 05/19/18 15:59 Heparin Sodium/ Dextrose 500 ml @ 15 mls/hr Q24H IV 04/18/18 18:00 05/18/18 17:59 04/19/18 03:03 14 MLS/HR Furosemide 100 mg/ Syringe 10 ml @ 4 mls/min 1030 ONCE IV 04/19/18 10:30 04/19/18 10:32 Review of Systems Unable to obtain secondary to uremia Physical Exam Date Time Temp Pulse Resp B/P (MAP) Pulse Ox O2 Delivery O2 Flow Rate FiO2 04/19/18 08:20 Nasal Cannula 3.0 04/19/18 07:17 36.8 68 18 110/58 (75) 98 Nasal Cannula 3.0 04/19/18 04:11 36.4 69 14 126/60 (82) 95 Nasal Cannula 3.0 04/18/18 23:52 36.5 70 15 117/62 (80) 97 Nasal Cannula 3.0 04/18/18 20:10 36.4 67 22 116/57 (76) 97 Nasal Cannula 3.0 04/18/18 20:00 97 Nasal Cannula 2.0 04/18/18 16:09 37.1 74 19 124/63 (83) 96 04/18/18 16:00 99 Nasal Cannula 2.0 04/18/18 13:35 37.2 72 121/59 (79) 04/18/18 13:15 70 126/67 04/18/18 13:04 76 114/61 04/18/18 12:55 37.2 77 125/62 (83) 04/18/18 12:14 36.8 70 99 128/56 (80) 99 Room Air General: Arouses to voice, follows commands. Oriented to self. Skin: Warm, dry, Head: Atraumatic Ears, nose, mouth and throat: airway patent Cardiovascular: Normal peripheral perfusion, S1 and S2 with murmur Respiratory: no respiratory distress, rales in the bases Gastrointestinal: Non distended Musculoskeletal: 2+ edema Laboratory Results Last 24 Hours Test 04/18/18 10:48 04/18/18 18:56 04/19/18 01:31 04/19/18 08:25 Sodium Level 137 mmol/L Potassium Level 3.9 mmol/L Chloride Level 101 mmol/L Carbon Dioxide Level 25 mmol/L Anion Gap 11.0 mmol/L Blood Urea Nitrogen 68 mg/dl Creatinine 4.68 mg/dl Est Creatinine Clear Calc Drug Dose 8.0 ml/min Estimated GFR () 9.7 Estimated GFR (Non- 8.4 BUN/Creatinine Ratio 14.6 Random Glucose 77 mg/dl Calcium Level 8.8 mg/dl Activated Partial Thromboplast Time 30.6 SECONDS 35.3 SECONDS 42.2 SECONDS Partial Thromboplastin Ratio 1.2 1.4 1.6 White Blood Count 5.65 K/uL Red Blood Count 2.89 M/uL Hemoglobin 9.8 g/dL Hematocrit 31.3 % Mean Corpuscular Volume 108.3 fL Mean Corpuscular Hemoglobin 33.9 pg Mean Corpuscular Hemoglobin Concent 31.3 g/dl Platelet Count 148 K/uL Neutrophils (%) (Auto) 69.0 % Lymphocytes (%) (Auto) 17.2 % Monocytes (%) (Auto) 8.3 % Eosinophils (%) (Auto) 5.1 % Basophils (%) (Auto) 0.4 % Neutrophils # (Auto) 3.90 K/uL Lymphocytes # (Auto) 0.97 K/uL Monocytes # (Auto) 0.47 K/uL Eosinophils # (Auto) 0.29 K/uL Basophils # (Auto) 0.02 K/uL RDW Standard Deviation 69.6 fL RDW Coefficient of Variation 19.7 % Immature Granulocyte % (Auto) 0.0 % Immature Granulocyte # (Auto) 0.00 K/uL Nucleated RBC Absolute Count (auto) 0.02 K/uL Nucleated Red Blood Cells % 0.3 % Platelet Estimate NORMAL Basophilic Stippling OCCASIONAL Anisocytosis PRESENT Macrocytosis PRESENT Schistocytes 1+ Prothrombin Time 15.7 SECONDS Prothromb Time International Ratio 1.5 Test 04/19/18 10:07 04/19/18 10:12 Diagnostic Results I reviewed the chest x-ray post procedure, no pneumothorax catheter in adequate position Assessment & Plan Reason Critically Ill: 77-year-old female with volume overload secondary to chronic kidney disease stage V PLAN: Neuro: Metabolic encephalopathy secondary to uremia -Likely improved with dialysis Resp: Hypoxic respiratory failure -Supplemental oxygen -Anticipate volume removal with dialysis today CV: Permanent A. fib History of mechanical heart valve replacement -Echo completed today -Discussed case with Dr. Larson -Requires long-term anticoagulation secondary to mechanical heart valves Fluids/Renal: Chronic kidney disease stage V Azotemia Need for urgent dialysis -Temporary right IJ catheter placed today -Okay to use for dialysis ID: No obvious infections at this time GI/Nutrition: Renal diet Minimally elevated AST -Suspect secondary to hepatic congestion associated with volume overload and congestive heart failure Heme: Chronic anemia Erythropoietin per nephrology -Discussed risks and benefits of blood transfusion with patient's daughter , consent for blood products obtained should they be required Endocrine: ICU hyperglycemia protocol Vascular access: Peripheral IV, temporary HD catheter with infusion port placed today Code Status: DO NOT RESUSCITATE in event of cardiac arrest An extensive discussion regarding goals of care with the patient's daughter the patient reportedly does not have a executed power of prosecuting attorney however the patient's daughter has functioned as such in the past. Patient's has dementia and is unable to have capacity to make medical decisions, the daughter and patient have had discussions regarding goals of care. The patient had capacity earlier in the hospital stay and requested a trial of dialysis and is willing to undergo temporary HD catheter and likely will require a tunneled HD catheter in the near future. When discussing resuscitation status, the patient does not want to be on machines and given the continued decline in her functional status should she undergo a cardiac arrest and be successfully resuscitated this would likely preclude her from returning home and her functional independence is very important to the patient. Accordingly the patient has made a DO NOT RESUSCITATE in event of cardiac arrest. I have personally spent 50 minutes of critical care time in the direct management of this patient. This is a life/limb threatening event. This includes time spent evaluating patient, direct bedside care, chart review, placing orders, interpretation of diagnostic studies, discussion with consultants, patient, and/or family members regarding treatment decisions, as well as other required patient management activities. This time is exclusive of all separately billable procedures, and teaching time and separate from and in addition to any other critical care service time.
--- NOTE | 2018-04-19 10:48 | Progress Note ---
Internal Med Progress Note Date of Service: Apr 19, 2018. Provider Documentation: SUBJECTIVE: Patient is more confused, disoriented this morning thinks she is at home Able to recognize her daughter at bedside Very lethargic, complains of short of breath, and chest heaviness using accessory muscles to breath Chest auscultation -coarse rales on bases Patient was unable to have dialysis yesterday as left arm AV fistula was infiltrated Minimum urine output overnight Discussed with nephrology Dr. Kelly, ordered for 100mg IV Lasix X1 stat /Metolazone 5 mg PO now Mahoney catheter to gravity for monitoring of urine out put patient will need permanent catheter placement for emergent dialysis, Transferred to ICU [facility] Dr. Saab updated OBJECTIVE: Vital Signs-as noted below Exam: General-very frail, chronically ill appearing elderly female, lethargic and confused in moderate respiratory distress, Eyes-sclera nonicteric ENT-dry oral mucosa Neck- + JVD Lungs-bibasilar coarse crackles, diminished breath sounds, no wheeze noted Heart-regular, loud murmur for metallic aortic and mitral valve noted Abdomen-distended, ascites+ Extremities-left arm AV fistula site significant swelling /erythema , pt denies of any pain Neuro-confused, oriented to person only with occasional lucid intervals No focal neurological deficit noted Lab data as noted below. ASSESSMENT & PLAN: END-STAGE RENAL DISEASE ON DIALYSIS Started on dialysis this admission Patient was sent by nephrology for volume overload, wt gain( Increased weight gain -117 pounds on 04/09/18 to 125 pound)/worsening of renal function with increased creatinine~5 With uremic symptoms had left arm AV fistula placed by Dr. Elena in November 2017 Appreciate input from nephrology Patient had 1 dialysis treatment on Friday04/17/2018 , able to use left arm AV fistula Yesterday AV fistula infiltrated when attempted dialysis could not finish the whole treatment This morning worsening of volume status, with bilateral pleural effusion, ascites, hypoxia Needs emergent dialysis Patient transferred to ICU PermCat for dialysis placed by malt house supervisor Nephrology updated Patient will have emergent dialysis continue monitoring ICU for close monitoring of hemodynamics WORSENING OF CONFUSION/LETHARGY/METABOLIC ENCEPHALOPATHY Mental status continued to worsen worsening Possible uremic encephalopathy CT Head w/o contrast 04/18/2018 no evidence of acute CVA Patient is scheduled for emergent dialysis today ACUTE CHF WITH DIASTOLIC HEART FAILURE Stat chest x-ray one view portable 04/19/2018 PROGRESSION OF CONGESTIVE HEART FAILURE, SLIGHT INCREASE IN VOLUME OF BILATERAL PLEURAL EFFUSIONS ProBNP secondary to end-stage renal disease Echo on 05/2017 showed resolved LVEF with grade 2 diastolic dysfunction Repeat echo ordered will need emergent dialysis ANEMIA OF CHRONIC DISEASE/DUE TO END-STAGE RENAL DISEASE Hemoglobin remained stable HISTORY OF RHEUMATIC HEART DISEASE/ Status post mitral and aortic valve replacement with prosthetic/mechanical valve Coumadin was on hold on admission as INR was elevated more than 3 INR subtherapeutic 1.5 today Coumadin resumed bridge therapy with IV heparin weight-based protocol until INR 2.5 HISTORY OF CHRONIC A. FIB Rate controlled on Lopressor Chronic anticoagulation with Coumadin Started on IV heparin weight-based protocol due to subtherapeutic INR HYPOTHYROIDISM On Synthroid GERD Continue PPI, H2 ida /Zantac HYPERTENSION Blood pressure improved after starting on dialysis Continue Lopressor, hydralazine, Imdur DEPRESSION Denies of any delusion or suicidal ideation Patient having significant short-term memory loss/confusion -due to metabolic encephalopathy associated with ESRD Lexapro discontinue, patient recently started on SSRI due to generalized anxiety anxiety disorder/depressive mood Neurontin discontinued-as family is concerned patient's current mental status could be due to drug reaction/side effect HISTORY OF GOUT No acute flare Continue allopurinol HISTORY OF COPD Developed worsening of respiratory distress/acute on chronic respiratory failure secondary to volume overload CHF Order for 100 mg IV Lasix will need emergent dialysis CODE STATUS: DNR/DNI DVT PROPHYLAXIS On Coumadin/IV heparin bridge till INR > 2.5 DISPOSITION She remains critically ill Transfer to ICU for close monitoring of hemodynamic Vital Signs: Date Time Temp Pulse Resp B/P (MAP) Pulse Ox O2 Delivery O2 Flow Rate FiO2 04/20/18 17:00 Room Air 04/20/18 11:00 Room Air 04/20/18 10:15 36.7 77 26 93 04/20/18 09:01 77 26 115/58 (77) 93 04/20/18 08:20 Nasal Cannula 2.0 04/20/18 08:01 36.7 75 20 126/55 (78) 94 Nasal Cannula 2.0 04/20/18 08:00 Nasal Cannula 04/20/18 07:03 75 21 128/50 (76) 96 Nasal Cannula 3.0 04/20/18 06:01 108 21 122/63 (82) 94 Nasal Cannula 3.0 04/20/18 05:01 73 24 119/56 (77) 99 Nasal Cannula 3.0 04/20/18 04:03 36.7 75 21 128/59 (82) 92 Nasal Cannula 3.0 04/20/18 03:03 72 21 106/55 (72) 98 Nasal Cannula 3.0 04/20/18 03:01 71 21 106/55 (72) 98 Nasal Cannula 3.0 04/20/18 02:01 73 22 97/47 (64) 94 Nasal Cannula 3.0 04/20/18 01:01 73 21 125/54 (77) 98 Nasal Cannula 3.0 04/20/18 00:01 36.6 74 20 116/55 (75) 94 Nasal Cannula 3.0 04/19/18 23:55 76 19 91/65 (74) 91 Nasal Cannula 3.0 04/19/18 23:01 70 19 83/43 (56) 100 Nasal Cannula 3.0 04/19/18 22:03 72 23 135/66 (89) 97 Nasal Cannula 3.0 04/19/18 21:00 73 18 117/60 (79) 96 Nasal Cannula 3.0 04/19/18 20:00 Nasal Cannula 3.0 04/19/18 20:00 36.7 72 21 132/74 (93) 95 Nasal Cannula 3.0 Lab Results: Results Past 24 Hours Test 04/19/18 20:47 04/20/18 00:17 04/20/18 00:19 04/20/18 04:04 Range/Units Bedside Glucose 103 83 70-90 mg/dl Activated Partial Thromboplast Time 40.4 21.0-31.0 SECONDS Partial Thromboplastin Ratio 1.6 White Blood Count 6.17 4.8-10.8 K/uL Red Blood Count 2.86 4.2-5.4 M/uL Hemoglobin 9.6 12.0-16.0 g/dL Hematocrit 30.6 37-47 % Mean Corpuscular Volume 107.0 80-100 fL Mean Corpuscular Hemoglobin 33.6 25-34 pg Mean Corpuscular Hemoglobin Concent 31.4 32-36 g/dl Platelet Count 115 130-400 K/uL Neutrophils (%) (Auto) 66.0 % Lymphocytes (%) (Auto) 8.4 % Monocytes (%) (Auto) 21.1 % Eosinophils (%) (Auto) 3.9 % Basophils (%) (Auto) 0.3 % Neutrophils # (Auto) 4.07 1.4-6.5 K/uL Lymphocytes # (Auto) 0.52 1.2-3.4 K/uL Monocytes # (Auto) 1.30 0.11-0.59 K/uL Eosinophils # (Auto) 0.24 0-0.5 K/uL Basophils # (Auto) 0.02 0-0.2 K/uL RDW Standard Deviation 67.1 36.4-46.3 fL RDW Coefficient of Variation 19.4 11.5-14.5 % Immature Granulocyte % (Auto) 0.3 % Immature Granulocyte # (Auto) 0.02 0.00-0.02 K/uL Platelet Estimate DECREASED Schistocytes 1+ Prothrombin Time 16.9 9.0-12.0 SECONDS Prothromb Time International Ratio 1.6 0.9-1.1 Sodium Level 135 136-145 mmol/L Potassium Level 3.8 3.5-5.1 mmol/L Chloride Level 98 98-107 mmol/L Carbon Dioxide Level 27 21-32 mmol/L Anion Gap 10.0 3-11 mmol/L Blood Urea Nitrogen 30 7-18 mg/dl Creatinine 3.20 0.60-1.20 mg/dl Est Creatinine Clear Calc Drug Dose 11.6 ml/min Estimated GFR () 15.4 Estimated GFR (Non- 13.3 BUN/Creatinine Ratio 9.4 10-20 Random Glucose 79 70-99 mg/dl Calcium Level 8.5 8.5-10.1 mg/dl Phosphorus Level 3.3 2.5-4.9 mg/dl Magnesium Level 1.9 1.8-2.4 mg/dl Chemistry Specimen Hemolysis Test 04/20/18 07:26 Range/Units Activated Partial Thromboplast Time 64.3 21.0-31.0 SECONDS Partial Thromboplastin Ratio 2.5
--- NOTE | 2018-04-19 10:57 | Progress Note ---
Progress Note Date of Service Apr 19, 2018. Progress Note ATTENDING ADDENDUM Patient is transferred to ICU 107 Stat done echocardiogram in ICU , cardiology Dr. Larson was present in ICU- ejection fraction remains unchanged EF 65-55%, gradient across the prosthetic aortic and mitral valve unchanged from prior no evidence No evidence of prosthetic valve thrombosis worsening of shortness of breath/volume overload- is due to oliguric renal failure Needs emergent dialysis for volume and electrolyte management Discussed with nephrology Dr. Kelly Patient will need dialysis access catheter, has left arm AV fistula is infiltrated E[employer]ings [employer]ator Dr. Saab evaluated the patient in ICU greatly appreciate input and help from relay telegrapher Temporary PermCath for dialysis will be placed by Dr. Saab now Patient appear to be lucid for some time after arrival to ICU When asked about-placinga line on her chest for dialysis-she is agreeable to have it as long as it helps her patient still having episodes of confusion/delirium Consent for PermCath dialysis obtained from daughter Sharon -by relay telegrapher Patient's overall prognosis remains very poor The disease progression and outcome discussed with the patient's daughter Sharon by Dr. Holliday Family also updated by myself -patient will continue to have- all the active measures of treatment/ICU care/ But even in spite of all supports and treatment if patient's condition declines and goes into cardiopulmonary arrest-chance of surviving that episode with CPR/ mechanical ventilation is very unlikely/and post survival outcome would be extremely poor Daughter wants patient to be DNR Does not want heroic measures for resuscitation, chest compression/mechanical ventilation in case of cardiopulmonary arrest Okay for dialysis, line placement, treatment for infection/giving fluids or pressors pressors for hypotension Patient's CODE STATUS changed to DNR/DNI
[2018-04-19] MEDS ORDERED: LEVALBUTEROL 1.25MG/0.5ML NEB INH ONE (11:00)
[2018-04-19 11:11] LABS: ALBUMIN 3.1 gm/dl (3.4-5.0); CALCIUM 8.4 mg/dl (8.5-10.1); CREATININE 4.91 mg/dl (0.60-1.20); POTASSIUM 4.1 mmol/L (3.5-5.1); TOTAL PROTEIN 6.4 gm/dl (6.4-8.2)
--- NOTE | 2018-04-19 11:46 | DIAGNOSTIC IMAGING REPORT ---
CHEST ONE VIEW PORTABLE CLINICAL HISTORY: post Perm cath placement tube position COMPARISON STUDY: 04/19/2018 FINDINGS: Stable moderate cardiac megaly. Central catheter place in superior vena cava. No evidence pneumothorax. Stable findings of congestive heart failure. IMPRESSION: Central catheter placed in the superior vena cava. No evidence for pneumothorax. The above report was generated using voice recognition software. It may contain grammatical, syntax or spelling errors. Electronically signed by: Jorge Lindo M.D. 04/19/2018 11:45 AM Dictated Date/Time: 04/19/2018 11:44 AM
--- NOTE | 2018-04-19 12:00 | Procedure Note ---
Procedure Note Procedure Date Apr 19, 2018. Central Line Procedure time out: side/site verified, patient ID confirmed, sterile procedure used Consent obtained: written (Consent obtained from daughter as patient unable to consent secondary to uremia) Time of procedure: 11:00 Performed by: attending Indications: other (Temporary hemodialysis catheter) Contraindications: coagulopathy (Heparin infusion) Prep: chlorhexadine prep, sterile drape, sterile procedures used Anesthesia: local injection, lidocaine 1% without epi Volume anesthetic (ml's): 5 Central line lumen: double Central line location: internal jugular (R) Additional details: ultrasound guidance, Selinger technique used, line sutured , good blood return CXR: appropriate position Complications: none Patient tolerated procedure: well Post-procedure vital signs: reviewed and stable Comments: Critical Care Medicine Point of Care Bedside Ultrasound Procedure: Procedural Ultrasound Procedure Date: April 19, 2018 Indication: Temporary hemodialysis catheter Attending: Patrick Saab DO Artery AND Vein visualized: Yes Compressible Vein: Yes Guidewire or Short Catheter seen in vein prior to dilation: Yes Line confirmed in Vein with ultrasound: Yes Lung Sliding on side of attempt (if applicable): Reviewed chest x-ray If no lung sliding or not obtained has CXR been ordered: Completed Impression: Successful right internal jugular cannulation with temporary hemodialysis catheter Plan: Urgent hemodialysis Images obtained are saved for permanent record
--- NOTE | 2018-04-19 13:55 | PROGRESS NOTE ---
DATE: 04/19/2018 SUBJECTIVE: Patient looks weak and lethargic, feels cold. She has no appetite at all. She has been losing weight. She has noticed also she has not really made much urine despite big dose of IV Lasix. Yesterday she had attempted dialysis with a fistula but then the fistula had significant infiltration and dialysis had to be stopped. This morning, she got into significant respiratory distress related with congestive heart failure, and she has been moved to intensive care unit where she just had a temporary dialysis catheter placed for dialysis today. Her mental status has been waxing and waning. PHYSICAL EXAMINATION:. VITAL SIGNS: Blood pressure 110/58, 98% on 3 L nasal cannula, pulse rate 68, temperature 36.8. HEENT: Mucous membrane is moist. NECK: Supple. Jugular venous distention is present. CHEST: Bilateral decreased breath sounds, multiple basilar crackles. CARDIOVASCULAR SYSTEM: Regular rate and rhythm. Soft systolic murmur heard. GASTROINTESTINAL: Abdomen is soft and nontender. EXTREMITIES: Show trace edema. LABORATORY DATA: Laboratory tests from this morning show hemoglobin of 9.8, WBC count 5.65, platelet count 148. Sodium 137, potassium 4.1, BUN 68, creatinine 4.91. BNP 21,000. IMAGING: Chest x-ray shows congestive heart failure present. ASSESSMENT AND PLAN: Patient is a 77-year-old female with multiple medical problems, both cardiac as well as pulmonary and now chronic kidney disease stage V with uremia. End-stage renal disease. She developed symptomatic congestive heart failure as a result of her cardiorespiratory failure with chronic kidney disease V. She did not respond with 100 mg of IV Lasix at this time. She just had a temporary dialysis catheter placed, and we will do dialysis today for about 3 hours 30 minutes and take 3 kg off as tolerated. Most likely she will need dialysis again tomorrow.
[2018-04-19] MEDS ORDERED: WARFARIN SOD 5 MG TAB PO SCH (16:00)
[2018-04-19] MEDS ORDERED: WARFARIN SOD 6 MG TAB PO SCH (16:00)
[2018-04-19 17:05] LABS: PTT PATIENT 98.7 SECONDS (21.0-31.0)
[2018-04-19] MEDS ORDERED: METOPROLOL TARTRATE 1 MG/ML VIAL IV. PRN (18:00)
[2018-04-19] MEDS: RANITIDINE HCL 150 MG TAB PO SCH (20:12)
[2018-04-20] VITALS (12 sets, daily range): BP systolic 97–128; BP diastolic 47–63; PULSE 71–108; TEMP 36.6–36.7; O2SAT 92–99
[2018-04-20 00:49] LABS: PTT PATIENT 40.4 SECONDS (21.0-31.0)
[2018-04-20] MEDS ORDERED: HEPARIN IV BOLUS 4,000 UNIT in SYRINGE 0 ML IV ONE (01:30)
[2018-04-20 04:36] LABS: MEAN CORPUSCULAR HGB CONC 31.4 g/dl (32-36)
[2018-04-20 04:57] LABS: INR 1.6 (0.9-1.1)
[2018-04-20 05:04] LABS: CALCIUM 8.5 mg/dl (8.5-10.1); CREATININE 3.2 mg/dl (0.60-1.20); HEMATOCRIT 30.6 % (37-47); HEMOGLOBIN 9.6 g/dL (12.0-16.0); MEAN CORPUSCULAR HEMOGLOBIN 33.6 pg (25-34); PHOSPHORUS 3.3 mg/dl (2.5-4.9); POTASSIUM 3.8 mmol/L (3.5-5.1); RED CELL DISTRIBUTION WIDTH CV 19.4 % (11.5-14.5); RED CELL DISTRIBUTION WIDTH SD 67.1 fL (36.4-46.3); WHITE BLOOD COUNT 6.17 K/uL (4.8-10.8)
[2018-04-20 05:21] LABS: PLATELET COUNT 115 K/uL (130-400)
[2018-04-20 05:23] LABS: BASO % 0.3 %; BASO ABS # 0.02 K/uL (0-0.2); EOS % 3.9 %; EOS ABS # 0.24 K/uL (0-0.5); IG# 0.02 K/uL (0.00-0.02); LYMPH % 8.4 %; LYMPH ABS # 0.52 K/uL (1.2-3.4); MONO % 21.1 %; NEUT ABS # 4.07 K/uL (1.4-6.5)
[2018-04-20] MEDS: METOLAZONE 2.5 MG TAB PO SCH (05:38)
[2018-04-20] MEDS: LEVOTHYROXINE 25 MCG TAB PO SCH (05:38)
--- NOTE | 2018-04-20 07:06 | DIAGNOSTIC IMAGING REPORT ---
CHEST ONE VIEW PORTABLE CLINICAL HISTORY: CHF COMPARISON STUDY: 04/19/2018 FINDINGS: There is a right internal jugular dual-lumen central venous catheter. There are postsurgical changes of a midline sternotomy and by valvular replacement. The heart is enlarged. There is congestive failure with interstitial pulmonary edema. There are bilateral pleural effusions.[ IMPRESSION: Continued radiographic evidence of congestive failure and interstitial pulmonary edema. Electronically signed by: Oziel Morelos M.D. 04/20/2018 7:05 AM Dictated Date/Time: 04/20/2018 7:04 AM
[2018-04-20] MEDS: ISOSORBIDE MONONITRATE 60 MG TABCR PO SCH (07:48)
[2018-04-20] MEDS: BOOST GLUCOSE CONTROL VANILLA PO SCH (07:48)
[2018-04-20] MEDS: PANTOprazole SOD 40 MG TAB PO SCH (07:50)
[2018-04-20 07:57] LABS: PTT PATIENT 64.3 SECONDS (21.0-31.0)
[2018-04-20] MEDS: CYANOCOBALAMIN 500 MCG TAB (VIT B-12) PO SCH (08:09)
[2018-04-20] MEDS: ASCORBIC ACID 500 MG TAB PO SCH (08:10)
[2018-04-20] MEDS: ALLOPURINOL 100 MG TAB PO SCH (08:11)
[2018-04-20] MEDS: POTASSIUM CHLORIDE 20 MEQ TABCR PO SCH (08:11)
[2018-04-20] MEDS: METOPROLOL TARTRATE 50 MG TAB PO SCH (08:11)
--- NOTE | 2018-04-20 08:57 | Critical Care Progress Note ---
Critical Care Progress Note Date of Service Apr 20, 2018. ICU Day ICU Day Number: [address] Saab Subjective No overnight events, improving mental status, but not to reported baseline Objective General: Arouses to voice, follows commands. Oriented to self and place Skin: Warm, dry, Head: Atraumatic Ears, nose, mouth and throat: airway patent Cardiovascular: Normal peripheral perfusion, S1 and S2 with murmur Respiratory: no respiratory distress, rales in the bases Gastrointestinal: Non distended Musculoskeletal: 1+ edema Assessment & Plan Reason Critically Ill: 77-year-old female with volume overload secondary to chronic kidney disease stage V PLAN: Neuro: Metabolic encephalopathy secondary to uremia -Likely improve with continued dialysis Resp: Hypoxic respiratory failure: Improving -Supplemental oxygen -Anticipate volume removal with dialysis today CV: Permanent A. fib History of mechanical heart valve replacement -Echo completed today -Discussed case with Dr. Larson -Requires long-term anticoagulation secondary to mechanical heart valves Fluids/Renal: Chronic kidney disease stage V Azotemia Anticipate ongoing dialysis -Temporary right IJ catheter placed April 19 -Okay to use for dialysis -We will likely need tunneled catheter placed -Vascular surgery consulted ID: No obvious infections at this time GI/Nutrition: Renal diet Minimally elevated AST -Suspect secondary to hepatic congestion associated with volume overload and congestive heart failure Heme: Chronic anemia Erythropoietin per nephrology -Discussed risks and benefits of blood transfusion with patient's daughter , consent for blood products obtained should they be required Long-term anticoagulation use -Holding Coumadin today until after tunneled catheter placement Endocrine: ICU hyperglycemia protocol Vascular access: Peripheral IV, temporary HD catheter with infusion port placed today Code Status: DO NOT RESUSCITATE in event of cardiac arrest Patient stable for downgrade to telemetry status of this his Consults & Procedures Consultants: Vascular surgery: Ulices Nephrology: Tripp Data Medications: Current Inpatient Medications Medications (Trade) Dose Ordered Sig/Shana Route Start Time Stop Time Status Last Admin Dose Admin Acetaminophen (Tylenol Tab) 650 mg Q4H PRN PO 04/14/18 22:45 05/14/18 22:44 04/19/18 18:59 650 MG Al Hydrox/Mg Hydrox/Simethicone (Maalox Max Susp) 15 ml Q4H PRN PO 04/14/18 22:45 05/14/18 22:44 Ondansetron HCl (Zofran Inj) 4 mg Q6H PRN IV 04/14/18 22:45 05/14/18 22:44 04/17/18 23:53 4 MG Nitroglycerin (Nitrostat Tab) 0.4 mg UD PRN SL 04/14/18 22:45 05/14/18 22:44 Polyethylene (Miralax Powder Packet) 17 gm DAILY PRN PO 04/14/18 22:45 05/14/18 22:44 Albuterol (Ventolin Hfa Inhaler) 2 puffs Q4 PRN INH 04/14/18 22:45 05/14/18 22:44 Allopurinol (Zyloprim Tab) 100 mg QAM PO 04/15/18 09:00 05/15/18 08:59 Future Hold 04/18/18 07:51 100 MG Calcitriol (Rocaltrol Cap) 0.25 mcg MoTh@1200 PO 04/16/18 12:00 05/16/18 11:59 04/16/18 12:34 0.25 MCG Cyanocobalamin (Vitamin B-12 Tab) 1,000 mcg DAILY PO 04/15/18 09:00 05/15/18 08:59 04/20/18 08:09 1,000 MCG Diclofenac Sodium (Voltaren 1% Top Gel) 1 appln QID PRN EXT 04/14/18 22:45 05/14/18 22:44 Folic Acid (Folvite Tab) 1 mg QAM PO 04/15/18 09:00 05/15/18 08:59 04/20/18 08:10 1 MG Guaifenesin (Organidin Nr Tab) 200 mg Q8 PRN PO 04/14/18 22:45 05/14/18 22:44 04/15/18 07:34 200 MG Hydralazine HCl (Apresoline Tab) 50 mg TID PO 04/15/18 09:00 05/15/18 08:59 04/19/18 20:14 50 MG Isosorbide Mononitrate (Imdur Ext Rel Tab) 60 mg QAM PO 04/15/18 09:00 05/15/18 08:59 04/20/18 07:48 60 MG Levothyroxine Sodium (Synthroid Tab) 25 mcg DAILYBB PO 04/15/18 06:00 05/15/18 05:59 04/20/18 05:38 25 MCG Metoprolol Tartrate (Lopressor Tab) 50 mg BID PO 04/15/18 09:00 05/15/18 08:59 04/19/18 20:13 50 MG Montelukast Sodium (Singulair Tab) 10 mg PM PO 04/15/18 21:00 05/15/18 20:59 Future Hold 04/18/18 19:54 10 MG Pantoprazole Sodium (Protonix Tab) 40 mg BID PO 04/15/18 09:00 05/15/18 08:59 04/20/18 07:50 40 MG Potassium Chloride (Klor-Con Tab) 20 meq BID PO 04/15/18 09:00 05/15/18 08:59 Future Hold 04/19/18 20:13 20 MEQ Ascorbic Acid (Vitamin C Tab) 500 mg QAM PO 04/15/18 09:00 05/15/18 08:59 04/20/18 08:10 500 MG Ranitidine HCl (zANTac TAB) 300 mg HS PO 04/15/18 21:00 05/15/18 20:59 04/19/18 20:12 300 MG Miscellaneous Information (Order Awaiting Action) 1 ea QS N/A 04/15/18 00:00 05/15/18 00:00 Metolazone (Zaroxolyn Tab) 2.5 mg QAM@0530 PO 04/16/18 05:30 05/16/18 05:29 04/20/18 05:38 2.5 MG Enteral Nutritional Formula (Boost Glucose Control) 1 can BIDM PO 04/18/18 16:45 05/18/18 16:44 04/20/18 07:48 1 CAN Heparin Sodium/ Dextrose 500 ml @ 15 mls/hr Q24H IV 04/18/18 18:00 05/18/18 17:59 04/19/18 10:24 15 MLS/HR Levalbuterol (Xopenex 1.25MG/ 0.5ML Neb) 1.25 mg Q4H PRN INH 04/19/18 10:30 05/19/18 10:29 Warfarin Sodium (Coumadin Tab) 5 mg DAILY@16 PO 04/19/18 16:00 05/19/18 15:59 Future Hold 04/19/18 16:23 5 MG Magnesium Oxide (Mag-Ox Tab) 400 mg HS PO 04/20/18 21:00 05/20/18 20:59 Vital Signs: Date Time Temp Pulse Resp B/P (MAP) Pulse Ox O2 Delivery O2 Flow Rate FiO2 04/20/18 08:20 Nasal Cannula 2.0 04/20/18 06:01 108 21 122/63 (82) 94 Nasal Cannula 3.0 04/20/18 05:01 73 24 119/56 (77) 99 Nasal Cannula 3.0 04/20/18 04:03 36.7 75 21 128/59 (82) 92 Nasal Cannula 3.0 04/20/18 03:03 72 21 106/55 (72) 98 Nasal Cannula 3.0 04/20/18 03:01 71 21 106/55 (72) 98 Nasal Cannula 3.0 04/20/18 02:01 73 22 97/47 (64) 94 Nasal Cannula 3.0 04/20/18 01:01 73 21 125/54 (77) 98 Nasal Cannula 3.0 04/20/18 00:01 36.6 74 20 116/55 (75) 94 Nasal Cannula 3.0 04/19/18 23:55 76 19 91/65 (74) 91 Nasal Cannula 3.0 04/19/18 23:01 70 19 83/43 (56) 100 Nasal Cannula 3.0 04/19/18 22:03 72 23 135/66 (89) 97 Nasal Cannula 3.0 04/19/18 21:00 73 18 117/60 (79) 96 Nasal Cannula 3.0 04/19/18 20:00 Nasal Cannula 3.0 04/19/18 20:00 36.7 72 21 132/74 (93) 95 Nasal Cannula 3.0 04/19/18 19:00 73 23 129/60 (83) 95 Nasal Cannula 3.0 04/19/18 18:00 74 21 143/68 (93) 96 Nasal Cannula 3.0 04/19/18 17:00 72 17 104/76 (85) 96 Nasal Cannula 3.0 04/19/18 16:32 36.5 73 135/62 (86) 04/19/18 16:00 99 Nasal Cannula 3.0 04/19/18 16:00 36.5 72 24 135/62 (86) 100 Nasal Cannula 3.0 7/29/18 15:45 73 131/57 7/29/18 15:30 73 135/62 04/19/18 15:15 73 139/62 04/19/18 15:00 72 24 129/72 (91) 95 3.0 04/19/18 15:00 73 129/72 04/19/18 14:45 72 132/66 04/19/18 14:30 72 142/72 04/19/18 14:15 72 135/67 04/19/18 14:00 74 18 125/62 (83) 95 Nasal Cannula 3.0 04/19/18 14:00 72 125/62 04/19/18 13:45 72 140/76 04/19/18 13:30 72 117/55 04/19/18 13:15 71 145/110 04/19/18 13:00 71 17 145/59 (87) 96 Nasal Cannula 3.0 04/19/18 13:00 71 145/59 04/19/18 12:45 69 127/72 04/19/18 12:30 71 130/75 04/19/18 12:20 71 124/54 04/19/18 12:00 36.5 70 133/60 (84) 04/19/18 12:00 70 27 133/60 (84) 97 Nasal Cannula 3.0 04/19/18 11:00 36.6 70 24 120/69 (86) 96 Nasal Cannula 3.0 04/19/18 10:30 Nasal Cannula 3.0 04/19/18 10:29 36.6 71 24 117/65 (82) 95 Nasal Cannula 3.0 04/19/18 10:15 36.8 68 18 98 3.0 Laboratory Results: Last 24 Hours Test 04/19/18 10:07 04/19/18 10:12 04/19/18 11:49 04/19/18 16:27 Arterial Blood pH 7.33 Arterial Blood Partial Pressure CO2 50 mmHg Arterial Blood Partial Pressure O2 72 mm/Hg Arterial Blood HCO3 26 mmol/L Arterial Blood Oxygen Saturation 91.9 % Arterial Blood Base Excess -0.2 mEq/L Arterial Blood Gas Delivery 3 LITERS Renzo Test POS Sodium Level 137 mmol/L Potassium Level 4.1 mmol/L Chloride Level 100 mmol/L Carbon Dioxide Level 25 mmol/L Anion Gap 12.0 mmol/L Blood Urea Nitrogen 68 mg/dl Creatinine 4.91 mg/dl Est Creatinine Clear Calc Drug Dose 7.6 ml/min Estimated GFR () 9.2 Estimated GFR (Non- 7.9 BUN/Creatinine Ratio 13.9 Random Glucose 83 mg/dl Lactic Acid Level 0.9 mmol/L Calcium Level 8.4 mg/dl Total Bilirubin 1.6 mg/dl Direct Bilirubin 0.8 mg/dl Aspartate Amino Transf (AST/SGOT) 42 U/L Alanine Aminotransferase (ALT/SGPT) 12 U/L Alkaline Phosphatase 58 U/L Ammonia 46.0 umol/L Pro-B-Type Natriuretic Peptide 76628 pg/ml Total Protein 6.4 gm/dl Albumin 3.1 gm/dl Globulin 3.3 gm/dl Albumin/Globulin Ratio 0.9 Lipase 225 U/L Procalcitonin 0.12 ng/ml Bedside Glucose 92 mg/dl Activated Partial Thromboplast Time 98.7 SECONDS Partial Thromboplastin Ratio 3.8 Test 04/19/18 20:47 04/20/18 00:17 04/20/18 00:19 04/20/18 04:04 Bedside Glucose 103 mg/dl 83 mg/dl Activated Partial Thromboplast Time 40.4 SECONDS Partial Thromboplastin Ratio 1.6 White Blood Count 6.17 K/uL Red Blood Count 2.86 M/uL Hemoglobin 9.6 g/dL Hematocrit 30.6 % Mean Corpuscular Volume 107.0 fL Mean Corpuscular Hemoglobin 33.6 pg Mean Corpuscular Hemoglobin Concent 31.4 g/dl Platelet Count 115 K/uL Neutrophils (%) (Auto) 66.0 % Lymphocytes (%) (Auto) 8.4 % Monocytes (%) (Auto) 21.1 % Eosinophils (%) (Auto) 3.9 % Basophils (%) (Auto) 0.3 % Neutrophils # (Auto) 4.07 K/uL Lymphocytes # (Auto) 0.52 K/uL Monocytes # (Auto) 1.30 K/uL Eosinophils # (Auto) 0.24 K/uL Basophils # (Auto) 0.02 K/uL RDW Standard Deviation 67.1 fL RDW Coefficient of Variation 19.4 % Immature Granulocyte % (Auto) 0.3 % Immature Granulocyte # (Auto) 0.02 K/uL Platelet Estimate DECREASED Schistocytes 1+ Prothrombin Time 16.9 SECONDS Prothromb Time International Ratio 1.6 Sodium Level 135 mmol/L Potassium Level 3.8 mmol/L Chloride Level 98 mmol/L Carbon Dioxide Level 27 mmol/L Anion Gap 10.0 mmol/L Blood Urea Nitrogen 30 mg/dl Creatinine 3.20 mg/dl Est Creatinine Clear Calc Drug Dose 11.6 ml/min Estimated GFR () 15.4 Estimated GFR (Non- 13.3 BUN/Creatinine Ratio 9.4 Random Glucose 79 mg/dl Calcium Level 8.5 mg/dl Phosphorus Level 3.3 mg/dl Magnesium Level 1.9 mg/dl Chemistry Specimen Hemolysis Test 04/20/18 07:26 Activated Partial Thromboplast Time 64.3 SECONDS Partial Thromboplastin Ratio 2.5
[2018-04-20] MEDS ORDERED: LORAZEPAM 0.5 MG TAB PO STA (09:51)
[2018-04-20] MEDS ORDERED: LORAZEPAM 0.5 MG TAB PO PRN (10:00)
[2018-04-20] MEDS ORDERED: ATROPINE SULFATE 1% OP SOLN 5 ML BTL OP PRN (11:15)
[2018-04-20] MEDS ORDERED: MoRPHine SULFATE 5 MG/0.25 ML UDP ONE (11:15)
[2018-04-20] MEDS ORDERED: LORAZEPAM 2 MG/ML 1 ML VIAL IV PRN (11:15)
[2018-04-20] MEDS: MoRPHine SULFATE 2 MG/ML CARP IV PRN ×2 (11:54→20:44)
[2018-04-20] MEDS ORDERED: SCOPOLAMINE 1.5 MG TDSY TD SCH (12:00)
[2018-04-20] MEDS ORDERED: ATROPINE SULFATE 1% OP SOLN 2 ML BTL SL PRN (12:15)
--- NOTE | 2018-04-20 14:20 | Progress Note ---
Internal Med Progress Note Date of Service: Apr 20, 2018. Provider Documentation: SUBJECTIVE: This morning patient was more awake and alert and lucid 2 daughters were present at bedside Patient declines to continue any further dialysis treatment States that "she is very tired" Just wants to be comfortable Does not want any procedure, no lab draw Family member in agreement for comfort care hospice Patient is transferred to 4 E medical floor/room 417. Palliative care consult OBJECTIVE: Vital Signs-as noted below Exam: General-very frail, chronically ill appearing elderly female, more awake today Does not want any procedure or medical treatment other than making her comfortable Eyes-sclera nonicteric ENT-dry oral mucosa Neck- + JVD Lungs-bibasilar coarse crackles, diminished breath sounds, Heart-regular, loud murmur for metallic aortic and mitral valve noted Abdomen-distended, ascites+ Extremities-left arm AV fistula site hematoma /+swelling /erythema , pt denies of any pain Neuro-no focal neurological deficit noted Lab data as noted below. ASSESSMENT & PLAN: This is a 77-year-old female with complicated medical history of-advanced CKD, respiratory end-stage renal disease requiring dialysis,. Rheumatic heart disease status post metallic atrial mitral valve replacement, CHF with diastolic dysfunction, COPD with chronic hypoxemic respiratory failure Started on dialysis this admission, AV fistula developed hematoma after 1 treatment She developed acute respiratory distress with volume overload, encephalopathy tunnel catheter placed was transferred to ICU, had emergent dialysis Patient is more lucid, and awake today Made the decision she does not want to continue hemodialysis Does not want active/aggressive treatment other than being called Family in agreement with patient's decision Continue comfort care hospice No more dialysis, no lab draws, no vitals, position change only as needed for comfort Palliative care consulted Patient's ordered for IV morphine as needed for pain or shortness of breath Ativan as needed for anxiety Palliative care consulted Family present at bedside CODE STATUS DNR/DNI Extremely poor prognosis with terminal end-stage status Increased risk of flash pulmonary edema/volume overload/uremia without dialysis- which will lead to acute hypoxemic respiratory/encephalopathy- Increased risk of both prosthetic mitral and aortic valve thrombosis without active anticoagulation-can lead to cardiopulmonary arrest /sudden cardiac Patient may during this hospital stay Vital Signs: Date Time Temp Pulse Resp B/P (MAP) Pulse Ox O2 Delivery O2 Flow Rate FiO2 04/20/18 17:00 Room Air 04/20/18 11:00 Room Air 04/20/18 10:15 36.7 77 26 93 04/20/18 09:01 77 26 115/58 (77) 93 04/20/18 08:20 Nasal Cannula 2.0 04/20/18 08:01 36.7 75 20 126/55 (78) 94 Nasal Cannula 2.0 04/20/18 08:00 Nasal Cannula 04/20/18 07:03 75 21 128/50 (76) 96 Nasal Cannula 3.0 04/20/18 06:01 108 21 122/63 (82) 94 Nasal Cannula 3.0 04/20/18 05:01 73 24 119/56 (77) 99 Nasal Cannula 3.0 04/20/18 04:03 36.7 75 21 128/59 (82) 92 Nasal Cannula 3.0 04/20/18 03:03 72 21 106/55 (72) 98 Nasal Cannula 3.0 04/20/18 03:01 71 21 106/55 (72) 98 Nasal Cannula 3.0 04/20/18 02:01 73 22 97/47 (64) 94 Nasal Cannula 3.0 04/20/18 01:01 73 21 125/54 (77) 98 Nasal Cannula 3.0 04/20/18 00:01 36.6 74 20 116/55 (75) 94 Nasal Cannula 3.0 04/19/18 23:55 76 19 91/65 (74) 91 Nasal Cannula 3.0 04/19/18 23:01 70 19 83/43 (56) 100 Nasal Cannula 3.0 04/19/18 22:03 72 23 135/66 (89) 97 Nasal Cannula 3.0 04/19/18 21:00 73 18 117/60 (79) 96 Nasal Cannula 3.0 04/19/18 20:00 Nasal Cannula 3.0 04/19/18 20:00 36.7 72 21 132/74 (93) 95 Nasal Cannula 3.0 Lab Results: Results Past 24 Hours Test 04/19/18 20:47 04/20/18 00:17 04/20/18 00:19 04/20/18 04:04 Range/Units Bedside Glucose 103 83 70-90 mg/dl Activated Partial Thromboplast Time 40.4 21.0-31.0 SECONDS Partial Thromboplastin Ratio 1.6 White Blood Count 6.17 4.8-10.8 K/uL Red Blood Count 2.86 4.2-5.4 M/uL Hemoglobin 9.6 12.0-16.0 g/dL Hematocrit 30.6 37-47 % Mean Corpuscular Volume 107.0 80-100 fL Mean Corpuscular Hemoglobin 33.6 25-34 pg Mean Corpuscular Hemoglobin Concent 31.4 32-36 g/dl Platelet Count 115 130-400 K/uL Neutrophils (%) (Auto) 66.0 % Lymphocytes (%) (Auto) 8.4 % Monocytes (%) (Auto) 21.1 % Eosinophils (%) (Auto) 3.9 % Basophils (%) (Auto) 0.3 % Neutrophils # (Auto) 4.07 1.4-6.5 K/uL Lymphocytes # (Auto) 0.52 1.2-3.4 K/uL Monocytes # (Auto) 1.30 0.11-0.59 K/uL Eosinophils # (Auto) 0.24 0-0.5 K/uL Basophils # (Auto) 0.02 0-0.2 K/uL RDW Standard Deviation 67.1 36.4-46.3 fL RDW Coefficient of Variation 19.4 11.5-14.5 % Immature Granulocyte % (Auto) 0.3 % Immature Granulocyte # (Auto) 0.02 0.00-0.02 K/uL Platelet Estimate DECREASED Schistocytes 1+ Prothrombin Time 16.9 9.0-12.0 SECONDS Prothromb Time International Ratio 1.6 0.9-1.1 Sodium Level 135 136-145 mmol/L Potassium Level 3.8 3.5-5.1 mmol/L Chloride Level 98 98-107 mmol/L Carbon Dioxide Level 27 21-32 mmol/L Anion Gap 10.0 3-11 mmol/L Blood Urea Nitrogen 30 7-18 mg/dl Creatinine 3.20 0.60-1.20 mg/dl Est Creatinine Clear Calc Drug Dose 11.6 ml/min Estimated GFR () 15.4 Estimated GFR (Non- 13.3 BUN/Creatinine Ratio 9.4 10-20 Random Glucose 79 70-99 mg/dl Calcium Level 8.5 8.5-10.1 mg/dl Phosphorus Level 3.3 2.5-4.9 mg/dl Magnesium Level 1.9 1.8-2.4 mg/dl Chemistry Specimen Hemolysis Test 04/20/18 07:26 Range/Units Activated Partial Thromboplast Time 64.3 21.0-31.0 SECONDS Partial Thromboplastin Ratio 2.5
--- NOTE | 2018-04-20 15:45 | Palliative Care Consultation ---
Consultation Date of Consultation: Apr 20, 2018. Requesting Physician: Dr. Hernandez Attending Physician: Dr. Hernandez Reason for Consultation: Assist with medical decision making as well as goals of care. Patient is currently a DNR History of Present Illness Patient seen and examined-2 daughters at bedside, returned later spoke at length with 1 daughter at bedside. Patient is a 77-year-old female with a history of chronic kidney disease who was sent to the ER [place] to increase renal failure. Patient's prior baseline creatinine was 3, her creatinine increased to 5.1. Patient had AV fistula placed in November, she was attempted to be dialyzed using her fistula-was unable to dialyze. Temporary dialysis catheter was placed-patient was dialyzed yesterday-3 L of fluid removed.. Patient has decided to forego any further dialysis. Patient has end-stage CHF-was having respiratory distress earlier today, given 1 dose of morphine with good results. Patient is resting comfortably, she is able to open her eyes briefly and responds to voice/touch. Family satisfied with level of comfort. Patient is currently on comfort care, patient does not have any urine output, discussed prognosis with both daughters and 3-5 days on average. Family understands patient is nearing end-of-life and wants to pursue comfort care only as per the patient's wishes. Past Medical/Surgical History Medical History: A. fib on Coumadin, CHF, chronic kidney disease stage V, HLD, hypertension, gout , hypothyroid, history of left atrial thrombus, osteoporosis, rheumatic heart disease, spinal stenosis. Surgical History: AVR/MVR, KARENA, thyroidectomy, status post bilateral hip replacement, AV fistula Family History Positive for CVA Social History Smoking Status: Current Every Day Smoker History of Alcohol Use: Yes (1 oz celeste/day-taken as sips throughout day) Drug Use: none Marital Status: Occupation Status: retired Review of Systems Unable to obtain review of systems as patient is minimally responsive, patient appears comfortable in no acute distress. Allergies Coded Allergies: Amlodipine (Verified Allergy, Unknown, edema per medical record, 04/14/18) Medications Current Inpatient Medications Medications (Trade) Dose Ordered Sig/Shana Route Start Time Stop Time Status Last Admin Dose Admin Acetaminophen (Tylenol Tab) 650 mg Q4H PRN PO 04/14/18 22:45 05/14/18 22:44 04/19/18 18:59 650 MG Al Hydrox/Mg Hydrox/Simethicone (Maalox Max Susp) 15 ml Q4H PRN PO 04/14/18 22:45 05/14/18 22:44 Ondansetron HCl (Zofran Inj) 4 mg Q6H PRN IV 04/14/18 22:45 05/14/18 22:44 04/17/18 23:53 4 MG Polyethylene (Miralax Powder Packet) 17 gm DAILY PRN PO 04/14/18 22:45 05/14/18 22:44 Albuterol (Ventolin Hfa Inhaler) 2 puffs Q4 PRN INH 04/14/18 22:45 05/14/18 22:44 Allopurinol (Zyloprim Tab) 100 mg QAM PO 04/15/18 09:00 05/15/18 08:59 Future Hold 04/18/18 07:51 100 MG Montelukast Sodium (Singulair Tab) 10 mg PM PO 04/15/18 21:00 05/15/18 20:59 Future Hold 04/18/18 19:54 10 MG Potassium Chloride (Klor-Con Tab) 20 meq BID PO 04/15/18 09:00 05/15/18 08:59 Future Hold 04/19/18 20:13 20 MEQ Miscellaneous Information (Order Awaiting Action) 1 ea QS N/A 04/15/18 00:00 05/15/18 00:00 Warfarin Sodium (Coumadin Tab) 5 mg DAILY@16 PO 04/19/18 16:00 05/19/18 15:59 Future Hold 04/19/18 16:23 5 MG Lorazepam (Ativan Tab) 0.5 mg Q3H PRN PO 04/20/18 11:15 05/20/18 11:14 Morphine Sulfate (MoRPHine SULFATE INJ) 1 mg Q1H PRN IV 04/20/18 11:15 05/04/18 11:14 04/20/18 11:54 1 MG Morphine Sulfate (Roxanol Oral Soln) 5 mg Q2H PRN PO 04/20/18 11:15 05/04/18 11:14 Scopolamine (Transderm-Scop Patch) 1.5 mg Q72H TD 04/20/18 12:00 05/20/18 11:59 04/20/18 12:08 1.5 MG Miscellaneous (Remove Transderm-Scop Patch) 1 ea Q72H N/A 04/23/18 12:00 05/23/18 11:59 Miscellaneous Information (Check Scopolamine Patch Placement) 1 ea QS N/A 04/20/18 16:00 05/20/18 15:59 Lorazepam (Ativan Inj) 1 mg Q3H PRN IV 04/20/18 11:15 05/20/18 11:14 Atropine Sulfate (ATROPINE SULFATE 1% Op Soln 2 ML) 2 drops Q2HWA PRN SL 04/20/18 12:15 05/20/18 12:14 Physical Exam Date Time Temp Pulse Resp B/P (MAP) Pulse Ox O2 Delivery O2 Flow Rate FiO2 04/20/18 11:00 Room Air 04/20/18 10:15 36.7 77 26 93 04/20/18 09:01 77 26 115/58 (77) 93 04/20/18 08:20 Nasal Cannula 2.0 04/20/18 08:01 36.7 75 20 126/55 (78) 94 Nasal Cannula 2.0 04/20/18 08:00 Nasal Cannula 04/20/18 07:03 75 21 128/50 (76) 96 Nasal Cannula 3.0 04/20/18 06:01 108 21 122/63 (82) 94 Nasal Cannula 3.0 04/20/18 05:01 73 24 119/56 (77) 99 Nasal Cannula 3.0 04/20/18 04:03 36.7 75 21 128/59 (82) 92 Nasal Cannula 3.0 04/20/18 03:03 72 21 106/55 (72) 98 Nasal Cannula 3.0 04/20/18 03:01 71 21 106/55 (72) 98 Nasal Cannula 3.0 04/20/18 02:01 73 22 97/47 (64) 94 Nasal Cannula 3.0 04/20/18 01:01 73 21 125/54 (77) 98 Nasal Cannula 3.0 04/20/18 00:01 36.6 74 20 116/55 (75) 94 Nasal Cannula 3.0 04/19/18 23:55 76 19 91/65 (74) 91 Nasal Cannula 3.0 04/19/18 23:01 70 19 83/43 (56) 100 Nasal Cannula 3.0 04/19/18 22:03 72 23 135/66 (89) 97 Nasal Cannula 3.0 04/19/18 21:00 73 18 117/60 (79) 96 Nasal Cannula 3.0 04/19/18 20:00 Nasal Cannula 3.0 04/19/18 20:00 36.7 72 21 132/74 (93) 95 Nasal Cannula 3.0 04/19/18 19:00 73 23 129/60 (83) 95 Nasal Cannula 3.0 04/19/18 18:00 74 21 143/68 (93) 96 Nasal Cannula 3.0 04/19/18 17:00 72 17 104/76 (85) 96 Nasal Cannula 3.0 04/19/18 16:32 36.5 73 135/62 (86) 04/19/18 16:00 99 Nasal Cannula 3.0 04/19/18 16:00 36.5 72 24 135/62 (86) 100 Nasal Cannula 3.0 04/19/18 15:45 73 131/57 General Appearance: no apparent distress Eyes: EOMI ENT: hearing grossly normal Respiratory: no respiratory distress, + crackles Cardiovascular: regular rate, rhythm, no edema, + pertinent finding (Positive murmur) Abdomen: non tender Musculoskeletal: pertinent finding (Weakness) Neurologic/Psychiatric: + pertinent finding (Minimally responsive, opens her eyes briefly and responds to voice/touch) Skin: warm/dry Laboratory Results Last 24 Hours Test 04/19/18 16:27 04/19/18 20:47 04/20/18 00:17 04/20/18 00:19 Activated Partial Thromboplast Time 98.7 SECONDS 40.4 SECONDS Partial Thromboplastin Ratio 3.8 1.6 Bedside Glucose 103 mg/dl 83 mg/dl Test 04/20/18 04:04 04/20/18 07:26 White Blood Count 6.17 K/uL Red Blood Count 2.86 M/uL Hemoglobin 9.6 g/dL Hematocrit 30.6 % Mean Corpuscular Volume 107.0 fL Mean Corpuscular Hemoglobin 33.6 pg Mean Corpuscular Hemoglobin Concent 31.4 g/dl Platelet Count 115 K/uL Neutrophils (%) (Auto) 66.0 % Lymphocytes (%) (Auto) 8.4 % Monocytes (%) (Auto) 21.1 % Eosinophils (%) (Auto) 3.9 % Basophils (%) (Auto) 0.3 % Neutrophils # (Auto) 4.07 K/uL Lymphocytes # (Auto) 0.52 K/uL Monocytes # (Auto) 1.30 K/uL Eosinophils # (Auto) 0.24 K/uL Basophils # (Auto) 0.02 K/uL RDW Standard Deviation 67.1 fL RDW Coefficient of Variation 19.4 % Immature Granulocyte % (Auto) 0.3 % Immature Granulocyte # (Auto) 0.02 K/uL Platelet Estimate DECREASED Schistocytes 1+ Prothrombin Time 16.9 SECONDS Prothromb Time International Ratio 1.6 Sodium Level 135 mmol/L Potassium Level 3.8 mmol/L Chloride Level 98 mmol/L Carbon Dioxide Level 27 mmol/L Anion Gap 10.0 mmol/L Blood Urea Nitrogen 30 mg/dl Creatinine 3.20 mg/dl Est Creatinine Clear Calc Drug Dose 11.6 ml/min Estimated GFR () 15.4 Estimated GFR (Non- 13.3 BUN/Creatinine Ratio 9.4 Random Glucose 79 mg/dl Calcium Level 8.5 mg/dl Phosphorus Level 3.3 mg/dl Magnesium Level 1.9 mg/dl Chemistry Specimen Hemolysis Activated Partial Thromboplast Time 64.3 SECONDS Partial Thromboplastin Ratio 2.5 Assessment & Plan Palliative Performance Scale: 20 % (1) Chronic kidney disease (CKD), stage V Status: Chronic Assessment & Plan: Patient declining any further dialysis-family supportive of patient's wishes. Patient with no urine output (2) Palliative care encounter Assessment & Plan: Patient with end-stage renal disease, foregoing further dialysis-prognosis 3-5 days on average. Family aware prognosis -supportive of patient's wishes. (3) CHF (congestive heart failure) Status: Acute Assessment & Plan: Patient with increasing heart failure with respiratory distress-as needed morphine effective. Expect rapid decline given patient's end -stage renal disease and her CHF. Counseling and Coordination Total time spent 70 minutes with greater than 50 percent of time spent at bedside discussing with family prognosis, end-of-life issues and providing emotional support.
[2018-04-20] MEDS: CHECK SCOPOLAMINE PATCH PLACEMENT SCH (16:24)
[2018-04-20] MEDS: MoRPHine SULFATE 5 MG/0.25 ML UDP PO PRN (19:03)
[2018-04-20] MEDS: LORAZEPAM 0.5 MG TAB PO PRN (20:03)
[2018-04-20] MEDS ORDERED: MAGNESIUM OXIDE 400 MG TAB PO SCH (21:00)
[2018-04-21] MEDS: CHECK SCOPOLAMINE PATCH PLACEMENT SCH ×2 (00:42→09:15)
[2018-04-21] MEDS: LORAZEPAM 0.5 MG TAB PO PRN (01:55)
[2018-04-21] MEDS: MoRPHine SULFATE 5 MG/0.25 ML UDP PO PRN ×2 (01:56→06:02)
[2018-04-21] MEDS: MoRPHine SULFATE 2 MG/ML CARP IV PRN (05:38)
[2018-04-21] MEDS ORDERED: LORAZEPAM INJ 1 MG in SYRINGE 0.5 ML IV PRN (06:30)
--- NOTE | 2018-04-21 10:28 | Progress Note ---
Internal Med Progress Note Date of Service: Apr 21, 2018. Provider Documentation: SUBJECTIVE: Seen and examined at bedside Patient is nonverbal currently Seemed to be comfortable Family at bedside Meets inpatient GIP OBJECTIVE: Vital Signs-as noted below General-very frail, chronically ill appearing elderly female, Non verbal Eyes-sclera nonicteric ENT-dry oral mucosa Neck + JVD Lungs: B/L coarse crackles, diminished breath sounds Heart:regular, Tachycardic, +murmur Abdomen-distended, ascites+ Extremities-left arm AV fistula site hematoma /+swelling /erythema Neuro: non verbal, complete exam could not be performed Lab data as noted below. ASSESSMENT & PLAN: Patient is a 77 yr female with complicated medical history of-advanced CKD, respiratory end-stage renal disease requiring dialysis, Rheumatic heart disease status post metallic atrial mitral valve replacement, CHF with diastolic dysfunction, COPD with chronic hypoxemic respiratory failure currently changed to comfort measures only Was started on dialysis during this admission, AV fistula developed hematoma after 1 treatment Patient developed acute respiratory distress with volume overload, encephalopathy Tunnel catheter placed Patient decided not to continue hemodialysis Prefers no active/aggressive treatment Family in agreement with patient's decision Palliative Care consulted Continue comfort care only Hospice consulted IV morphine as needed for pain or shortness of breath Ativan as needed for anxiety CODE STATUS DNR/DNI Extremely poor prognosis with terminal end-stage status Vital Signs: Date Time Temp Pulse Resp B/P (MAP) Pulse Ox O2 Delivery O2 Flow Rate FiO2 04/21/18 09:00 Room Air 04/21/18 00:11 Room Air 04/20/18 17:00 Room Air 04/20/18 11:00 Room Air
[2018-04-21] MEDS ORDERED: ATVI IV (10:33)
[2018-04-21] MEDS ORDERED: SCOP1.5D2 TD (10:33)
[2018-04-21] MEDS ORDERED: MRLP17X PO (10:33)
[2018-04-21] MEDS ORDERED: ATV5 PO (10:33)
[2018-04-21] MEDS ORDERED: MRPIS2 IV (10:33)
[2018-04-21] MEDS ORDERED: ATRO1SOL13 SL (10:33)
[2018-04-21] MEDS ORDERED: RXNS10 PO (10:33)
[2018-04-21] MEDS ORDERED: ACET-1047 PO (10:33)
[2018-04-21] MEDS ORDERED: ZFRI4 IV (10:33)
--- NOTE | 2018-04-21 10:35 | Discharge Summary ---
Discharge Summary Date of Service Apr 21, 2018. Discharge Summary Admission Date: Apr 14, 2018 at 22:44 Discharge Date: Apr 21, 2018 Discharge Disposition: Acute care facility (Hospice) Principal Diagnosis: ESRD Consultations: Nephrology, Palliative Care, Critical Care Pending Studies/Follow-Up: Follow up with your Hospice Physician upon discharge Medication Reconciliation New Medications: Acetaminophen (Mapap) 325 Mg Tab 650 MG PO Q4H PRN for Pain or Fever for 1 Day, #8 TAB Atropine Sulfate (Atropine Sulfate) 1 % Annmarie 2 DROPS SL Q2HWA PRN for increased secretion for 1 Day Lorazepam (Lorazepam) 0.5 Mg Tab 0.5 MG PO Q3H PRN for Anxiety for 1 Day, #8 TAB Lorazepam (Lorazepam) 2 Mg/Ml Inj 1 MG IV Q3H PRN for Anxiety for 1 Day Morphine Sulfate (Morphine Sulfate) 10 Mg/0.5 Ml Soln 5 MG PO Q2H PRN for Pain for 1 Day Morphine Sulfate (Morphine Sulfate) 2 Mg/Ml Inj 1 MG IV Q1H PRN for Pain/SOB for 1 Day Ondansetron (Ondansetron Hcl) 2 Mg/Ml Inj 4 MG IV Q6H PRN for Nausea for 1 Day Polyethylene (Miralax) 17 Gm Pow 17 GM PO DAILY PRN for Constipation for 1 Day Scopolamine (Transderm-Scop) 1 Mg/3 Days Dis 1.5 MG TD Q72H for 1 Day Continued Medications: Albuterol Hfa (Ventolin Hfa) 200 Puffs/76404 Mcg Aers 2 PUFFS INH Q4 PRN for SOB/Wheezing, #1 INHALER Discontinued Medications: Allopurinol (Zyloprim) 100 Mg Tab 100 MG PO QAM, TAB Calcitriol (Rocaltrol Cap) 0.25 Mcg Cap 1 CAP PO 2XWK for 30 Days, CAP 5 Refills mon, thurs - takes in the afternoon Cyanocobalamin (Vitamin B-12 1000 Mcg) 1,000 Mcg Tab 1 TAB PO afternoon for 30 Days, TAB 2 Refills Diclofenac Sodium (Topical) (Voltaren 1% Top Gel) 1 % Gel 1 APPLN TOP QID PRN for Pain Escitalopram (Lexapro) 10 Mg Tab 10 MG PO QPM, TAB Folic Acid (Folic Acid) 1 Mg Tab 1 MG PO QAM Furosemide (Lasix) 80 Mg Tab 160 MG PO BID, TAB Gabapentin (Neurontin) 100 Mg Cap 100 MG PO HS, CAP Guaifenesin (Organ-I Nr) 200 Mg Tab 200 MG PO Q8 PRN for Cough Hydralazine Hcl (Apresoline) 50 Mg Tab 50 MG PO TID Iron-Vitamin C (Vitron-C) 1 Tab Tab 1 TAB PO QAM Isosorbide Mononitrate Ext Rel (Imdur Ext Rel) 60 Mg Ertab 60 MG PO QAM, TAB Levothyroxine Sodium (Synthroid) 25 Mcg Tab 25 MCG PO QAM, TAB Metolazone (Zaroxolyn) 5 Mg Tab 5 MG PO DAILY PRN for , TAB Metoprolol Tartrate (Lopressor) 50 Mg Tab 50 MG PO BID, TAB Montelukast Sodium (Montelukast Sodium) 10 Mg Tab 1 TAB PO late afternoon, TAB 5 Refills Nitroglycerin (Nitrostat) 0.4 Mg Tab 0.4 MG UT PRN, BTL Pantoprazole (Protonix) 40 Mg Tab 40 MG PO BID Potassium Ext Rel (Klor-Con) 20 Meq Tabcr 20 MEQ PO BID, TAB takes one in am and takes one in early afternoon Ranitidine (Zantac) 300 Mg Tab 300 MG PO HS, TAB Umeclidinium-Vilanterol (Anoro Ellipta 62.5-25 Mcg/INH) 1 Aer Aer 1 PUFFS INH DAILY, #1 Warfarin Sod (Coumadin) 2.5 Mg Tab 3.75 MG PO DAILY, #30 Admission Information HPI (per Admitting provider): CHIEF COMPLAINT: Abnormal labs. HISTORY OF PRESENT ILLNESS: This is a 77-year-old female with past medical history significant for spinal stenosis, status post aortic and mitral valve replacement on anticoagulation, rheumatic heart disease, subacute bacterial endocarditis, atrial fibrillation, hyperlipidemia, osteoporosis, hypothyroidism, chronic kidney disease stage 4, gout, black hairy tongue, history of allergic rhinitis, hypertension, COPD, diastolic CHF, situational anxiety, was brought in because of abnormal labs. The patient has chronic kidney disease, stage 4. She has a fistula placement in her left arm in November of this year, which has not matured yet and she is supposed to see vascular surgery next week. She is also getting labs every week for Coumadin levels and also for renal function and labs are progressively worsening, her baseline creatinine is around 3 and her labs showed her creatinine was worsening around 5, so she was advised to come to the ER. The patient has also had a worsening lower extremity edema. Her diuretics were adjusted recently, but is not helping, making her kidney function worsen. The patient was feeling weak and tired, poor appetite, poor ambulatory status, walks with the help of a walker. She lives with her , but mostly depends on her. Denies any fever or chills. No headaches, no dizziness, no blurred vision, no earache, no runny nose, no sore throat, no difficulty swallowing, no chest pain, no shortness of breath. She feels nauseous every day in the morning and has cough for some time, but no vomiting. Normal bowel movements. No blood in the stools, no blood in the urine, no abdominal pain. Making not much urine, but no burning micturition. Currently, resting comfortably and hemodynamically stable. Physical Exam (per Admitting): PHYSICAL EXAMINATION: GENERAL: The patient is of moderate build, not in distress. VITAL SIGNS: Temperature 36.7, pulse 72, respiratory rate 18, blood pressure 117/62, oxygen 95% room air. HEENT: No pallor, no icterus. Pupils equal, round, reactive to light. NECK: No JVD. No neck masses. No carotid bruit. CARDIOVASCULAR: S1, S2 heard, regular rate and rhythm, no murmur, no gallop. RESPIRATORY SYSTEM: Clear to auscultation bilaterally. No wheezing, no crackles. ABDOMEN: Soft, bowel sounds present, nontender. No distention. CENTRAL NERVOUS SYSTEM: Cranial nerves II through XII grossly intact. Nonfocal. EXTREMITIES: Lower extremity edema, +2 edema present. No erythema seen. Hospital Course Patient is a 77 yr female with complicated medical history of-advanced CKD, respiratory end-stage renal disease requiring dialysis, Rheumatic heart disease status post metallic atrial mitral valve replacement, CHF with diastolic dysfunction, COPD with chronic hypoxemic respiratory failure currently changed to comfort measures only Was started on dialysis during this admission, AV fistula developed hematoma after 1 treatment Patient developed acute respiratory distress with volume overload, encephalopathy Tunnel catheter placed Patient decided not to continue hemodialysis Prefers no active/aggressive treatment Family in agreement with patient's decision Palliative Care consulted Continue comfort care only Hospice consulted IV morphine as needed for pain or shortness of breath Ativan as needed for anxiety CODE STATUS DNR/DNI Extremely poor prognosis with terminal end-stage status Total time spent on discharge = This includes examination of the patient, discharge planning, medication reconciliation, and communication with other providers. Discharge Instructions Discharge Instructions Date of Service Apr 21, 2018. Admission Reason for Admission: JUAN C Discharge Discharge Diagnosis / Problem: JUAN C on CKD Discharge Goals Goal(s): Decrease discomfort Activity Recommendations Activity Limitations: per Instructions/Follow-up section Lifting Limitations: gradually increase as tolerated . Current Hospital Diet Patient's current hospital diet: Regular Diet Discharge Diet Recommended Diet: Regular Diet Pending Studies Studies pending at discharge: no Medical Emergencies . Who to Call and When: Medical Emergencies: If at any time you feel your situation is an emergency, please call 911 immediately. . Non-Emergent Contact Non-Emergency issues call your: Primary Care Provider . . "Provider Documentation" section prepared by Gregory Mustafa. . <Electronically signed by Gregory Mustafa MD> Signed: 04/21/18 1034 Signed: The status of this report is Signed * If report status is Draft, the document has not been finalized by the responsible provider.
--- NOTE | 2018-04-21 15:16 | ECHOCARDIOGRAM REPORT ---
*NOTICE TO RECEIVING CONSTITUTION PARTY AGENCY This information is strictly Confidential and protected under [place] law. [place] law prohibits you from making any further disclosure of this information unless further disclosure is expressly permitted by the written consent of the person to whom it pertains or is authorized by law. A general authorization for the release of medical or other information is not sufficient for this purpose. Hospital accepts no responsibility if the information is made available to any other person, INCLUDING THE PATIENT. Interpretation Summary * Name: ZANDER JACOB Study Date: 04/19/2018 10:14 AM BP: 110/58 mmHg * Patient Location: [facility] HR: 68 * : 1940 (M/d/yyyy) Gender: Female Height: 62 in * Age: 77 yrs Ethnicity: [place] Weight: 121 lb * Ordering Physician: Margarita Hernandez * Referring Physician: Carol Malave * Performed By: Ace Hodges RCS * * Reason For Study: CHF * BSA: 1.5 m2 * -- Conclusions -- * Study was perfomred on a stat basis in ICU room 107 for evaluation of shortnesss of breath, with history of rheumatic heart disease, diastolic heart failure s/p remorte MVR with a 27 mm Rehman [employer] mechanical mitral valve prosthesis and AVR with a 23 mm [employer] aortic valve mechanical prosthesis * There is moderate concentric left ventricular hypertrophy. * The left ventricular wall motion is normal. * The left atrium is severely dilated. * The right atrium is severely dilated. * There is a mechanical mitral valve. * Mitral valve regurgitation is not well assessed due to acoustic shadowing from the mechanical mitral valve prosthesis. * Mitral valve stenosis/obstruction is absent with normal transvalvular gradients. * There is an echodensity on the ventricular aspect of the mitral valve prosthesis that is unchanged compared to 06/10/2017. * There is a mechanical aortic valve. * The gradient is normal for this prosthetic aortic valve. * There is no significant aortic regurgitation. * There is severe tricuspid regurgitation. * Severe pulmonary hypertension is present. * The calculated pulmonary artery systolic pressure is 75 mmHg. Procedure Details * A complete two-dimensional transthoracic echocardiogram was performed (2D, M-mode, Doppler and color flow Doppler). Left Ventricle * The left ventricle is normal in size. * There is moderate concentric left ventricular hypertrophy. * Left ventricular systolic function is normal. * The left ventricular wall motion is normal. Right Ventricle * The right ventricle is normal in size and function. Atria * The left atrium is severely dilated. * The right atrium is severely dilated. * There is no evidence of atrial septal defect, but resolution does not allow assessment for a patent foramen ovale. Mitral Valve * There is a mechanical mitral valve. * Mitral valve regurgitation is not well assessed due to acoustic shadowing from the mechanical mitral valve prosthesis. Mitral valve stenosis/obstruction is absent. Tricuspid Valve * The tricuspid valve is normal. * There is no tricuspid stenosis. * There is severe tricuspid regurgitation. * Severe pulmonary hypertension is present. The calculated pulmonary artery systolic pressure is 75 mmHg. Aortic Valve * There is no significant aortic regurgitation. * There is a mechanical aortic valve. * The gradient is normal for this prosthetic aortic valve. Pulmonic Valve * The pulmonary valve is inadequately visualized, but the Doppler data is adequate for interpretation. * There is no pulmonic valvular stenosis. * Mild pulmonic valvular regurgitation. Great Vessels * The aortic root and proximal ascending aorta are normal sized. Pericardium/Pleural * There is no pericardial effusion. Great Vessels * Dilated inferior vena cava with reduced collapsability with sniff indicates an elevated right atrial pressure of 15 mmHg Left Ventricular Diastolic Function * Left ventricular diastolic function is abnormal as evidenced by left atrial enlargement, and Doppler findings. MMode 2D Measurements and Calculations IVSd 10 cm IVSs 1.2 cm LVIDd 4.9 cm LVIDs 3.3 cm LVPWd 0.95 cm LVPWs 1.3 cm IVS/LVPW 1.0 FS 32.3 % EDV(Teich) 111.0 ml ESV(Teich) 44.0 ml EF(Teich) 60.4 % EDV(cubed) 115.2 ml ESV(cubed) 35.8 ml EF(cubed) 69.0 % % IVS thick 22.7 % % LVPW thick 38.1 % LV mass(C)d 168.3 grams LV mass(C)dI 109.0 grams/m\S\2 LV mass(C)s 136.2 grams LV mass(C)sI 88.2 grams/m\S\2 SV(Teich) 67.0 ml SI(Teich) 43.4 ml/m\S\2 SV(cubed) 79.4 ml SI(cubed) 51.4 ml/m\S\2 Ao root diam 2.8 cm Ao root area 6.2 cm\S\2 LA dimension 4.2 cm asc Aorta Diam 3.4 cm LA/Ao 1.5 EDV(MOD-sp4) 52.6 ml ESV(MOD-sp4) 21.3 ml EF(MOD-sp4) 59.6 % EDV(MOD-sp2) 55.0 ml ESV(MOD-sp2) 24.5 ml EF(MOD-sp2) 55.4 % SV(MOD-sp4) 31.3 ml SI(MOD-sp4) 20.3 ml/m\S\2 SV(MOD-sp2) 30.5 ml SI(MOD-sp2) 19.7 ml/m\S\2 Doppler Measurements and Calculations MV E max lydia 192.4 cm/sec MV A max lydia 56.7 cm/sec MV E/A 3.4 MV P1/2t max lydia 209.1 cm/sec MV P1/2t 62.1 msec MVA(P1/2t) 3.5 cm\S\2 MV dec slope 985.6 cm/sec\S\2 MV dec time 0.20 sec Ao V2 max 301.2 cm/sec Ao max PG 36.3 mmHg Ao max PG (full) 25.9 mmHg Ao V2 mean 162.2 cm/sec Ao mean PG 13.2 mmHg Ao mean PG (full) 7.9 mmHg Ao V2 VTI 52.9 cm LV V1 max PG 10.5 mmHg LV V1 mean PG 5.3 mmHg LV V1 max 161.7 cm/sec LV V1 mean 105.6 cm/sec LV V1 VTI 35.2 cm SV(Ao) 330.0 ml SI(Ao) 213.8 ml/m\S\2 PA V2 max 138.0 cm/sec PA max PG 7.6 mmHg PI max lydia 211.3 cm/sec PI max PG 18.6 mmHg PI dec slope 319.5 cm/sec\S\2 PI P1/2t 193.7 msec TR max lydia 382.8 cm/sec
== END 2018-04-21 11:05 | disposition hospice, inpatient (51) | DRG 682 ==
LOC: C.EDB 19:38 → C.2T 22:44 → ENRESERV 22:54 → C.MSICU 04-19 10:26 → ENRESERV 04-20 09:52 → C.4E 04-20 10:22
PROVIDERS: ADMIT Hospitalist; ATTEND Internal Medicine
PROC: 5A1D70Z Performance of Urinary Filtration, Intermittent, Less than 6 Hours Per Day (ICD-10-PCS; 2018-04-17)
PROC: 02HV33Z Insertion of Infusion Device into Superior Vena Cava, Percutaneous Approach (ICD-10-PCS; principal; 2018-04-19)
DX: N17.9 Acute kidney failure, unspecified (principal); T82.898A Other specified complication of vascular prosthetic devices, implants and grafts, initial encounter; G93.41 Metabolic encephalopathy; Z51.5 Encounter for palliative care; I50.33 Acute on chronic diastolic (congestive) heart failure; I13.2 Hypertensive heart and chronic kidney disease with heart failure and with stage 5 chronic kidney disease, or end stage renal disease; J96.11 Chronic respiratory failure with hypoxia; I48.2 Chronic atrial fibrillation; N18.6 End stage renal disease; M10.9 Gout, unspecified; E78.5 Hyperlipidemia, unspecified; M81.0 Age-related osteoporosis without current pathological fracture; Z95.2 Presence of prosthetic heart valve; F17.200 Nicotine dependence, unspecified, uncomplicated; Z79.01 Long term (current) use of anticoagulants; J44.9 Chronic obstructive pulmonary disease, unspecified; E03.9 Hypothyroidism, unspecified; I09.9 Rheumatic heart disease, unspecified; Z66 Do not resuscitate; D63.1 Anemia in chronic kidney disease; F32.9 Major depressive disorder, single episode, unspecified; Y83.2 Surgical operation with anastomosis, bypass or graft as the cause of abnormal reaction of the patient, or of later complication, without mention of misadventure at the time of the procedure; Y92.238 Other place in hospital as the place of occurrence of the external cause

== ENCOUNTER 2018-04-21 11:05 | Inpatient (IN) | payer OTHER ==
[~2018-04-21] VITALS: Ht 157.5 cm; Wt 54.0 kg
[~2018-04-21 11:05] MED LIST changes: +ACET-1047 PO; +ATRO1SOL13 SL; +ATV5 PO; +ATVI IV; -CMD/25 PO; +CMD25 PO; +DICL1GEL12 TOP; +ESCI10TA17 PO; +FERRTAB18 PO; +FLV1 PO; +FURO80TA63 PO; +GUAI1TAB PO; -GUAI1TAB7 PO; +ISOS60TA25 PO; +METO5TAB5 PO; +MRLP17X PO; +MRPIS2 IV; -OXGN; +PANT40TA PO; +RXNS10 PO; +SCOP1.5D2 TD; +ZFRI4 IV
--- NOTE | 2018-04-21 11:34 | History and Physical ---
History & Physical Date & Time of Service: Apr 21, 2018 at 11:33 Chief Complaint: [facility] - Hospice Primary Care Physician: Lana Aguillon M.D. History of Present Illness Source: family, hospital records Patient is a 77 yr female with complicated medical history of-advanced CKD, respiratory end-stage renal disease requiring dialysis, Rheumatic heart disease status post metallic atrial mitral valve replacement, CHF with diastolic dysfunction, COPD with chronic hypoxemic respiratory failure was admitted under inpatient hospice services for comfort care. Patient is not able to provide any history. Family at bedside is in agreement with comfort care. History is obtained from patient's records. Past Medical/Surgical History Medical Problems: (1) RON (acute kidney injury) (2) Atrial fibrillation (3) Chest pain (4) CHF (congestive heart failure) (5) CHF (congestive heart failure) (6) CHF exacerbation (7) Chronic kidney disease (CKD), stage V (8) CKD (chronic kidney disease), stage IV (9) Dyslipidemia (10) Gout (11) HTN (hypertension) (12) Hypothyroidism (13) Hypoxia (14) Left atrial thrombus (15) Osteoporosis (16) Palliative care encounter (17) Pleural effusion (18) Rheumatic heart disease (19) Spinal stenosis Surgical Problems: (1) H/O aortic valve replacement (2) H/O mitral valve replacement (3) History of hysterectomy (4) Hx of thyroidectomy (5) Status post total hip replacement, left (6) Status post total hip replacement, right Family History Stroke MOTHER Not relevant Social History Smoking Status: Current Every Day Smoker Drug Use: none Marital Status: Occupational Status: retired Immunizations History of Influenza Vaccine: Yes Influenza Vaccine Date: Jun 25, 2016 History of Pneumococcal: Yes Pneumococcal Date: Apr 04, 2015 Allergies Coded Allergies: Amlodipine (Verified Allergy, Unknown, edema per medical record, 04/14/18) Home Medications Scheduled Allopurinol (Zyloprim), 100 MG PO QAM Calcitriol (Rocaltrol Cap), 1 CAP PO 2XWK Cyanocobalamin (Vitamin B-12 1000 Mcg), 1 TAB PO afternoon Escitalopram (Lexapro), 10 MG PO QPM Folic Acid (Folic Acid), 1 MG PO QAM Furosemide (Lasix), 160 MG PO BID Gabapentin (Neurontin), 100 MG PO HS Hydralazine Hcl (Apresoline), 50 MG PO TID Iron-Vitamin C (Vitron-C), 1 TAB PO QAM Isosorbide Mononitrate Ext Rel (Imdur Ext Rel), 60 MG PO QAM Levothyroxine Sodium (Synthroid), 25 MCG PO QAM Metoprolol Tartrate (Lopressor), 50 MG PO BID Montelukast Sodium (Montelukast Sodium), 1 TAB PO late afternoon Nitroglycerin (Nitrostat), 0.4 MG UT PRN Pantoprazole (Protonix), 40 MG PO BID Potassium Ext Rel (Klor-Con), 20 MEQ PO BID Ranitidine (Zantac), 300 MG PO HS Scopolamine (Transderm-Scop), 1.5 MG TD Q72H Umeclidinium-Vilanterol (Anoro Ellipta 62.5-25 Mcg/INH), 1 PUFFS INH DAILY Warfarin Sod (Coumadin), 3.75 MG PO DAILY Scheduled PRN Acetaminophen (Mapap), 650 MG PO Q4H PRN for Pain or Fever Albuterol Hfa (Ventolin Hfa), 2 PUFFS INH Q4 PRN for SOB/Wheezing Atropine Sulfate (Atropine Sulfate), 2 DROPS SL Q2HWA PRN for increased secretion Diclofenac Sodium (Topical) (Voltaren 1% Top Gel), 1 APPLN TOP QID PRN for Pain Guaifenesin (Organ-I Nr), 200 MG PO Q8 PRN for Cough Lorazepam (Lorazepam), 0.5 MG PO Q3H PRN for Anxiety Lorazepam (Lorazepam), 1 MG IV Q3H PRN for Anxiety Metolazone (Zaroxolyn), 5 MG PO DAILY PRN for Morphine Sulfate (Morphine Sulfate), 5 MG PO Q2H PRN for Pain Morphine Sulfate (Morphine Sulfate), 1 MG IV Q1H PRN for Pain/SOB Ondansetron (Ondansetron Hcl), 4 MG IV Q6H PRN for Nausea Polyethylene (Miralax), 17 GM PO DAILY PRN for Constipation Review of Systems could not be obtained Physical Exam General-very frail, chronically ill appearing elderly female, Non verbal Eyes-sclera nonicteric ENT-dry oral mucosa Neck + JVD Lungs: B/L coarse crackles, diminished breath sounds Heart:regular, Tachycardic, +murmur Abdomen-distended, ascites+ Extremities-left arm AV fistula site hematoma /+swelling /erythema Neuro: non verbal, complete exam could not be performed Impression Assessment and Plan Patient is a 77 yr female with complicated medical history of-advanced CKD, respiratory end-stage renal disease requiring dialysis, Rheumatic heart disease status post metallic atrial mitral valve replacement, CHF with diastolic dysfunction, COPD with chronic hypoxemic respiratory failure currently changed to comfort measures only Was started on dialysis during this admission, AV fistula developed hematoma after 1 treatment Patient developed acute respiratory distress with volume overload, encephalopathy Tunnel catheter placed Patient decided not to continue hemodialysis Prefers no active/aggressive treatment Family in agreement with patient's decision Palliative Care consulted Continue comfort care only Hospice consulted IV morphine as needed for pain or shortness of breath Ativan as needed for anxiety CODE STATUS DNR/DNI Extremely poor prognosis with terminal end-stage status Resuscitation Status VTE Prophylaxis Will order VTE Prophylaxis: No Reason for no VTE drug order: Treatment not indicated Reason no Mechanical VTE Order: Treatment not tolerated
[2018-04-21] MEDS ORDERED: ACETAMINOPHEN 325 MG TAB PO PRN (11:45)
[2018-04-21] MEDS ORDERED: POLYETHYLENE (MIRALAX) 17 GM PACK PO PRN ×2 (11:45)
[2018-04-21] MEDS ORDERED: MoRPHine SULFATE 0.4 MG/1 ML UDP PO PRN (11:45)
[2018-04-21] MEDS ORDERED: LORAZEPAM 0.5 MG TAB PO PRN (11:45)
[2018-04-21] MEDS ORDERED: DICLOFENAC SOD 1% GEL 100 GM TUBE EXT PRN (11:45)
[2018-04-21] MEDS ORDERED: ALBUTEROL HFA 8 GM INHALER INH PRN (11:45)
[2018-04-21] MEDS ORDERED: GUAIFENESIN 200 MG TAB PO PRN (11:45)
[2018-04-21] MEDS ORDERED: ONDANSETRON INJ 2 MG/ML 2 ML VIAL IV PRN (11:45)
[2018-04-21] MEDS ORDERED: LORAZEPAM 2 MG/ML 1 ML VIAL ONE (11:58)
[2018-04-21 12:00] VITALS: Ht 157.5 cm; Wt 54.0 kg
[2018-04-21] MEDS ORDERED: LORAZEPAM INJ 1 MG in SYRINGE 0.5 ML IV PRN (12:30)
[2018-04-21] MEDS ORDERED: MoRPHine SULFATE 5 MG/0.25 ML UDP PO PRN (12:30)
[2018-04-21] MEDS ORDERED: SCOPOLAMINE 1.5 MG TDSY TD SCH (13:00)
[2018-04-21] MEDS: MoRPHine SULFATE 2 MG/ML CARP IV PRN (18:10)
[2018-04-21] MEDS: CHECK SCOPOLAMINE PATCH PLACEMENT SCH (18:37)
[2018-04-21] MEDS: LORAZEPAM 2 MG/ML 1 ML VIAL IV PRN (18:37)
[2018-04-21] MEDS: ATROPINE SULFATE 1% OP SOLN 2 ML BTL SL PRN (23:59)
[2018-04-22] MEDS: CHECK SCOPOLAMINE PATCH PLACEMENT SCH ×3 (00:02→16:13)
[2018-04-22] MEDS: MoRPHine SULFATE 2 MG/ML CARP IV PRN ×9 (02:52→22:22)
[2018-04-22] MEDS: ATROPINE SULFATE 1% OP SOLN 2 ML BTL SL PRN ×8 (02:54→21:08)
--- NOTE | 2018-04-22 14:48 | Progress Note ---
Internal Med Progress Note Date of Service: Apr 22, 2018. Provider Documentation: SUBJECTIVE: Seen and examined at bedside Patient is obtunded No distress Family at bedside OBJECTIVE: Vital Signs-as noted below General-Obtunded, Non verbal Eyes-sclera nonicteric ENT-dry oral mucosa Neck + JVD Lungs: B/L coarse crackles, diminished breath sounds Heart:regular, Tachycardic, +murmur Abdomen-distended, ascites+ Extremities-left arm AV fistula site hematoma /+swelling /erythema Neuro: non verbal, complete exam could not be performed Lab data as noted below. ASSESSMENT & PLAN: Patient is a 77 yr female with complicated medical history of-advanced CKD, respiratory end-stage renal disease requiring dialysis, Rheumatic heart disease status post mechanical heart valve, CHF with diastolic dysfunction, COPD with chronic hypoxemic respiratory failure, afib, on comfort measures only under [facility] hospice Care Chronic kidney disease stage V Acute respiratory distress with volume overload encephalopathy Patient preferred to discontinue hemodialysis On comfort measures only Family in agreement with patient's decision Palliative Care consulted IV morphine and Ativan as needed Code Status DNR/DNI Extremely poor prognosis with terminal end-stage status Vital Signs: Date Time Temp Pulse Resp B/P (MAP) Pulse Ox O2 Delivery O2 Flow Rate FiO2 04/22/18 08:35 Nasal Cannula 2.0 04/22/18 01:00 Nasal Cannula 2.0 04/21/18 16:00 Nasal Cannula 2.0
[2018-04-22] MEDS: LORAZEPAM 2 MG/ML 1 ML VIAL IV PRN (20:07)
[2018-04-23] MEDS: ATROPINE SULFATE 1% OP SOLN 2 ML BTL SL PRN ×3 (00:06→04:42)
[2018-04-23] MEDS: MoRPHine SULFATE 2 MG/ML CARP IV PRN ×3 (00:06→09:52)
[2018-04-23] MEDS: CHECK SCOPOLAMINE PATCH PLACEMENT SCH ×2 (00:07→08:00)
--- NOTE | 2018-04-23 16:57 | Palliative Care Progress Note ---
Palliative Care Progress Note Date of Service Apr 23, 2018. Subjective Pt evaluation today including: conversation w/ family, physical exam Pain: None by exam PO Intake: None Voiding: voiding difficulty (Patient anuric) Patient now GIP, multiple family at bedside including 2 daughters, son, , and grandson. Review of Systems Unable to obtain, patient unresponsive Objective Vital Signs Date Time Temp Pulse Resp B/P (MAP) Pulse Ox O2 Delivery O2 Flow Rate FiO2 04/23/18 09:00 Nasal Cannula 2.0 04/22/18 21:45 Nasal Cannula 2.0 Physical Exam General Appearance: no apparent distress ENT: + pertinent finding (Unable to assess) Respiratory/Chest: no respiratory distress, + pertinent finding (Respirations shallow) Cardiovascular: no edema Abdomen: + pertinent finding (Not distended) Extremities: + pertinent finding (Poor perfusion, mottled) Neurologic/Psychiatric: + pertinent finding (Unresponsive to voice and touch) Skin: + mottled, + pertinent finding (Toes cool to touch) Assessment and Plan Patient is a 77-year-old woman with chronic kidney disease stage V, end-stage renal disease foregoing further dialysis, CHF with diastolic dysfunction, and COPD. Patient on comfort care, appears comfortable on exam, family grieving appropriately. Patient appears comfortable, has onset of mottling and cool toes which is new since this a.m. as per family. Discussed patient's prognosis, discussed end-of-life issues at length with family. Informed family prognosis is likely hours. Time in 1230, time out 1315 total time 45 minutes with greater than 50% of the time spent at bedside discussing end-of-life issues with family.
--- NOTE | 2018-04-23 19:44 | Discharge Summary ---
Discharge Summary Date of Service Apr 23, 2018. Discharge Summary Admission Date: Apr 21, 2018 at 11:05 Discharge Disposition: Principal Diagnosis: End Stage Renal Disease Consultations: Palliative Care, Hospice Admission Information HPI (per Admitting provider): Patient is a 77 yr female with complicated medical history of-advanced CKD, respiratory end-stage renal disease requiring dialysis, Rheumatic heart disease status post metallic atrial mitral valve replacement, CHF with diastolic dysfunction, COPD with chronic hypoxemic respiratory failure was admitted under inpatient hospice services for comfort care. Patient is not able to provide any history. Family at bedside is in agreement with comfort care. History is obtained from patient's records. Physical Exam (per Admitting): General-very frail, chronically ill appearing elderly female, Non verbal Eyes-sclera nonicteric ENT-dry oral mucosa Neck + JVD Lungs: B/L coarse crackles, diminished breath sounds Heart:regular, Tachycardic, +murmur Abdomen-distended, ascites+ Extremities-left arm AV fistula site hematoma /+swelling /erythema Neuro: non verbal, complete exam could not be performed Hospital Course Patient is a 77 yr female with complicated medical history of-advanced CKD, respiratory end-stage renal disease requiring dialysis, Rheumatic heart disease status post mechanical heart valve, CHF with diastolic dysfunction, COPD with chronic hypoxemic respiratory failure, afib, on comfort measures only under [facility] hospice Care Chronic kidney disease stage V Acute respiratory distress with volume overload encephalopathy Patient preferred to discontinue hemodialysis On comfort measures only Family in agreement with patient's decision Palliative Care consulted IV morphine and Ativan as needed Code Status DNR/DNI Extremely poor prognosis with terminal end-stage status Patient at 1425. Family made aware. Total time spent on discharge = This includes examination of the patient, discharge planning, medication reconciliation, and communication with other providers. Discharge Instructions Patient
== END 2018-04-23 16:00 | disposition expired | DRG 682 ==
LOC: C.4E 11:05
PROVIDERS: ADMIT Internal Medicine; ATTEND Internal Medicine
DX: N18.6 End stage renal disease (principal); G93.40 Encephalopathy, unspecified; I50.30 Unspecified diastolic (congestive) heart failure; J96.11 Chronic respiratory failure with hypoxia; Z99.2 Dependence on renal dialysis; R06.03 Acute respiratory distress; Z51.5 Encounter for palliative care; Z66 Do not resuscitate; J44.9 Chronic obstructive pulmonary disease, unspecified; F17.200 Nicotine dependence, unspecified, uncomplicated; Z95.2 Presence of prosthetic heart valve; Z79.01 Long term (current) use of anticoagulants; Z79.899 Other long term (current) drug therapy; Z88.8 Allergy status to other drugs, medicaments and biological substances